=== PATIENT | female | born 1970 | race Caucasian/White ===

== ENCOUNTER 2018-10-29 10:20 | Emergency (ER) | payer MEDICAID, SELFPAY ==
[2018-10-29 10:23] VITALS: BP 144/83; PULSE 82; RESP 17; TEMP 36.7; O2SAT 95; BMI 28.4
--- NOTE | 2018-10-29 10:44 | RAD_ITS ---
STUDY: X-RAY CHEST REASON FOR EXAM: Female, 48 years old. Sore throat. Fever and chills and cough. TECHNIQUE: PA and lateral views of the chest. COMPARISON: None. FINDINGS: The lungs are clear and expanded. There is no demonstrated pleural abnormality. Normal size heart. Normal mediastinum and amy. Normal visualized pulmonary arteries. Normal visualized aortic arch and descending thoracic aorta. Normal visualized thoracic spine. Normal visualized ribs, clavicles, and shoulders. A metallic ring is seen at the gastroesophageal junction region. This may represent post hiatal hernia repair. Clinical correlation is recommended. RAD/Chest PA and Lateral IMPRESSION: No acute abnormality is seen. Electronically Signed: Chico Renteria, at 11:29 EDT , Service support ,
--- NOTE | 2018-10-29 11:51 | ED.VISSUMM ---
- ER Visit Summary Date of Service: 10/29/18 Chief Complaint: Sore throat, fever, cough History of Present Illness: The patient is a 48 F with a 4-day history of congestion, cough, sinus pressure. She reports a fever of 101 on [place]. She said she is only coughing up clear sputum. She does not feel that she is wheezing more than normal. Has baseline COPD. She now presents with sharp pain on her left lower ribs it is worse with coughing or deep breath. Physical Examination: Vital signs unremarkable. Patient is afebrile. Head and neck examination reveals mild posterior pharyngeal drainage. She does have mild tenderness to palpation of the maxillary sinuses with some focal edema noted on the right. Heart is regular rate and rhythm. Lung sounds are clear. She has reproducible tenderness of the left lower ribs without crepitus. Abdomen is soft nontender. Test Results: Two-view chest x-ray reveals no focal infiltrate. Emergency Department Course and Treatment: Test results discussed with patient. In light of the fact that she has underlying COPD should be treated with a course of Zithromax. First dose will be provided here. Treatment Plan: [] Disposition: Discharge Impression: 1. Sinusitis 2. Bronchitis This note was generated with [employer] dictation software. It may contain incorrect words, spelling, and punctuation that were not noted in review of the chart prior to signing ED Disposition - Plan for ED Patient: Disposition: Home or Assisted Living Instructions: ED Upper Resp Infec Abx Tx Prescriptions: Azithromycin [Zithromax] 250 mg PO DAILY #4 tablet Additional Instructions: Follow-up with your PCP in [place] as discussed.
[2018-10-29 11:55] VITALS: PULSE 56; RESP 16; TEMP 36.9
[2018-10-29] MEDS: Azithromycin 250 MG Tablet 500 MG PO (12:02)
== END 2018-10-29 12:06 | disposition home or self-care (01) ==
PROVIDERS: Emergency Provider Emergency Medicine
DX: J32.0 Chronic maxillary sinusitis (principal); J40 Bronchitis, not specified as acute or chronic; J02.9 Acute pharyngitis, unspecified; J44.9 Chronic obstructive pulmonary disease, unspecified; I10 Essential (primary) hypertension
CPT/HCPCS: 71046; 99283

== ENCOUNTER 2018-11-08 14:29 | Emergency (ER) | payer MEDICAID, SELFPAY ==
[2018-11-08 14:30] VITALS: BP 138/60; PULSE 80; RESP 16; TEMP 36.7; O2SAT 97; BMI 28.1
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
[2018-11-08 15:57] VITALS: BP 130/80; PULSE 65; RESP 17; O2SAT 99
== END 2018-11-08 15:56 | disposition home or self-care (01) ==
LOC: ED 15:35
PROVIDERS: Emergency Provider Emergency Medicine
DX: F91.9 Conduct disorder, unspecified (principal); Z76.0 Encounter for issue of repeat prescription; Z59.0 Homelessness; Z79.899 Other long term (current) drug therapy
CPT/HCPCS: 99282

== ENCOUNTER 2019-01-08 10:15 | Emergency (ER) | payer MEDICAID, SELFPAY ==
[2019-01-08 10:16] VITALS: BP 135/86; PULSE 105; RESP 17; TEMP 36.4; O2SAT 97; BMI 29.8
--- NOTE | 2019-01-08 10:34 | ED.VISSUMM ---
- ER Visit Summary Date of Service: 01/08/19 Chief Complaint: Back pain History of Present Illness: The patient is a 48 F who presents with back pain that began yesterday. Patient states her back locked up on her. Patient states pain is over the lower thoracic area. Patient states the pain is sharp. Patient states pain is worse with movement. Patient states she does have some numbness and tingling in her legs. Patient denies any radiation of the pain to her lower extremities. Patient states the pain radiates into her hips but nothing below the hips. Patient denies any pain into her abdomen. Patient denies any bowel or bladder changes. Patient denies any saddle anesthesia. Patient denies any recent trauma or injury. Physical Examination: Vital signs are stable. Patient is afebrile. Patient is in no acute distress. Musculoskeletal exam reveals tenderness and spasm of the lower thoracic and upper lumbar paraspinal muscles. There is no midline tenderness. There is no bony crepitance or step-off. Range of motion was limited in all motions of the thoracic and lumbar spine secondary to pain. Strength is 5/5 bilateral knee upper and lower extremities. There are no sensory deficits noted. Heart was regular rate and rhythm. Lungs are clear and equal bilaterally. Abdomen is soft and nontender. Emergency Department Course and Treatment: Patient was given an injection of morphine and Norflex here. Patient was given a prescription for Flexeril to take at bedtime. Patient was instructed to use ice to the area. Patient was instructed to follow-up with her primary care physician in 5 to 7 days. Patient understood and was agreeable with the plan. All questions were answered. Disposition: Discharge home Impression: Acute thoracic strain This note was generated with Mafengwo dictation software. It may contain incorrect words, spelling, and punctuation that were not noted in review of the chart prior to signing ED Disposition - Plan for ED Patient: Disposition: Home or Assisted Living Diagnosis: Acute thoracic myofascial strain Instructions: Back Sprain/Strain Prescriptions: cycloBENZAPRine HCl [Flexeril] 10 mg PO QHS PRN PRN #10 tab PRN Reason: Muscle Spasm Prescription Printed Referrals: [facility] Doctor,Out of [Primary Care Provider] - 3-5 Days
[2019-01-08] MEDS: Morphine 4 MG/ML Syringe IM (10:47)
[2019-01-08] MEDS: Orphenadrine 60 MG/2 ML Ampul IM (10:48)
[2019-01-08 11:05] VITALS: PULSE 68; RESP 16; O2SAT 99
== END 2019-01-08 11:14 | disposition home or self-care (01) ==
LOC: ED 11:12
PROVIDERS: Emergency Provider Emergency Medicine
DX: S29.012A Strain of muscle and tendon of back wall of thorax, initial encounter (principal); J44.9 Chronic obstructive pulmonary disease, unspecified; M79.7 Fibromyalgia; F32.9 Major depressive disorder, single episode, unspecified; F41.9 Anxiety disorder, unspecified; Z72.0 Tobacco use; Z79.899 Other long term (current) drug therapy; X58.XXXA Exposure to other specified factors, initial encounter; Y93.89 Activity, other specified; Y92.89 Other specified places as the place of occurrence of the external cause; Y99.8 Other external cause status
CPT/HCPCS: 96372; 99282

== ENCOUNTER 2019-02-02 10:34 | Emergency (ER) | payer MEDICAID, SELFPAY ==
[2019-02-02 10:35] VITALS: BP 127/78; PULSE 75; RESP 18; TEMP 36.8; O2SAT 99; BMI 29.6
[2019-02-02 11:06] LABS: Mucous, Urine 0 SEEN /hpf (<or=2+); Red Blood Cells-Urine 0 SEEN /hpf (0-5); White Blood Cells 0 SEEN /hpf (0-5)
[2019-02-02 11:09] LABS: Color, Urine Yellow (Yellow); Glucose, Dipstick Normal (Normal); Ketone-Dipstick 5 mg/dl (Negative); Leukocyte Esterase-Dipstick Negative /ul (Negative); Nitrite-Dipstick Negative (Negative); Occult Blood-Urine 25 /ul (Negative); Protein-Dipstick Negative (Negative); Specific Gravity, Urine 1.015 (1.002-1.030); Urine Bilirubin Dipstick Negative (Negative); Urine Clarity Sl. Cloudy (Clear); Urine Urobilinogen Normal (Normal)
[2019-02-02 11:16] LABS: Bacteria 1+ /hpf (None Seen); Squamous Epithelial Cells - UA 0-5 SEEN /hpf (5-10); Yeast-Urine RARE /hpf (None Seen)
--- NOTE | 2019-02-02 11:29 | NURSING ---
Obtained clean catch from urine and sent to lab. Straight catheter not used.
--- NOTE | 2019-02-02 11:54 | CT_ITS ---
STUDY: CT ABDOMEN AND PELVIS WITH CONTRAST REASON FOR EXAM: Female, 48 years old. Lower abdominal pain radiating to the back painful urination RADIATION DOSAGE (If Supplied By Facility): CTDIvol = ( 14.64 ) mGy, DLP = ( 728.45 ) mGycm TECHNIQUE: CT images were obtained from the dome of the diaphragm to the symphysis pubis without oral contrast. 100CC IV Isovue 300 was administered. Sagittal and coronal images were reconstructed. Individualized dose optimization techniques were used for this CT. COMPARISON: None. FINDINGS: The visualized lung bases are unremarkable. The visualized portions of the heart are within normal limits. Normal liver. Normal gallbladder and extrahepatic biliary system. Normal spleen. Normal pancreas. Normal bilateral adrenal glands. Normal right kidney. Normal left kidney. There is no intestinal obstruction. Appendix is normal. There is proximal gastroesophageal banding device. Normal abdominal aorta. Normal inferior vena cava. Normal retroperitoneum. Normal urinary bladder. Normal abdominal wall. Normal osseous structures. CT/Abdomen/Pelvis W IV Cont ONLY IMPRESSION: Normal enhanced CT of the abdomen and pelvis. Electronically Signed: Zander Maldonado, at 13:51 EDT Tel , Service support ,
[2019-02-02] MEDS: Ondansetron 4 MG/2 ML Vial IV (12:15)
[2019-02-02] MEDS: 0.9% Normal Saline 1,000 ML 1000 ML IV (12:16)
[2019-02-02 12:18] VITALS: BP 142/8; PULSE 56; RESP 14; TEMP 36.8; O2SAT 99
[2019-02-02 12:38] LABS: Anion Gap 3 (5-15); BUN 11 mg/dL (7-18); BUN/Creat Ratio 12.7 RATIO (10-20); Calcium,Total 8.6 mg/dL (8.5-10.1); Chloride 109 mmol/L (98-107); Creatinine, Serum 0.87 mg/dL (0.55-1.02); EST Glomerular Filtration Rate 74 mL/min (>60); Est Glom Filt Rate - Afr Amer 89 mL/min (>60); Estimated Creatinine Clearance 67.55 ml/min; Glucose 91 mg/dL (74-106); Sodium Level 137 mmol/L (136-145)
[2019-02-02 12:45] LABS: Absolute Lymphocyte Count 2.53 X10^3/uL (0.83-4.51); Absolute Neutrophil Count 4.7 X10^3/uL (2.0-7.7); Basophil# 0.02 X10^3/uL; Basophil% 0.2 % (0-1); Eosinophil# 0.18 X10^3/uL; Eosinophils% 2.2 % (0-5); Hematocrit 41.5 % (37-47); Hemoglobin 13.6 g/dL (12.0-15.0); Lymphocyte # 2.53 X10^3/ul (4.0); Lymphocyte % 31.2 % (19-41); Mean Corp Hgb Conc 32.8 g/dL (32-36); Mean Corpuscular Hgb 32.2 pg (27.0-32.0); Mean Corpuscular Volume 98.1 fL (81-99); Mean Platelet Vol. 10.2 fl (6.2-12.0); Monocyte# 0.61 X10^3/uL; Monocyte% 7.5 % (0-10); NRBC Flagged by Analyzer 0 % (0-5); Neutrophil # 4.74 X10^3/uL (2.7-7.7); Neutrophil % 58.7 % (47-70); Platelet Count 299 K/mm3 (150-450); RBC Distribution Width CV 13.3 % (11.6-14.6); RBC Distribution Width SD 48.1 fl (35.1-43.9); Red Blood Count 4.23 M/mm3 (4.2-5.4); White Blood Count 8.1 K/mm3 (4.4-11.0)
[2019-02-02 13:10] VITALS: BP 131/80; O2SAT 99
--- NOTE | 2019-02-02 14:14 | ED.DCSUM_ITS ---
- ER Visit Summary Date of Service: 02/02/19 Chief Complaint: Pain History of Present Illness: The patient is a 48 F with suprapubic pain. She has had this for 4 days. It radiates to her back. Worse with urination. Associated with frequency and incomplete voiding. No fevers. No other symptoms. Prior hysterectomy, appendectomy. Physical Examination: Afebrile and vital signs unremarkable. Alert and oriented. No acute distress. Suprapubic tenderness. No guarding or rebound. Skin appears normal. Test Results: Urinalysis unremarkable. Emergency Department Course and Treatment: Patient had symptoms and findings concerning for a bladder infection. Urinalysis was unremarkable. On reevaluation, patient is having continued symptoms. We will check labs and CT. CT negative. Labs reassuring. Given the patient's symptoms, will treat for UTI. Ulcer pending. She will be started on Macrobid and she was treated with Pyridium for pain. Follow-up with primary care. Treatment Plan: As above Disposition: Discharge Impression: 1. Suprapubic pain This note was generated with Neo[employer]x dictation software. It may contain incorrect words, spelling, and punctuation that were not noted in review of the chart prior to signing ED Disposition - Plan for ED Patient: Referrals: [facility] ,Out of [Primary Care Provider] -
--- NOTE | 2019-02-02 14:17 | ED.DEP ---
ED Disposition - Plan for ED Patient: Instructions: DYSURIA, Uncertain Cause (Adult) Prescriptions: Nitrofurantoin Macrocrystals [Macrobid] 100 mg PO Q12 #10 cap Prescription Printed Phenazopyridine HCl [Pyridium] 100 mg PO TID 2 Days #6 tab Prescription Printed Referrals: [facility] Doctor,Out of [Primary Care Provider] -
[2019-02-02] MEDS: Nitrofurantoin Macrocrystals 100 MG Capsule PO (14:22)
[2019-02-02] MEDS: Phenazopyridine 95 MG Tablet PO (14:22)
[2019-02-02 14:25] VITALS: BP 156/84; PULSE 68; RESP 14
== END 2019-02-02 14:31 | disposition home or self-care (01) ==
LOC: ED 11:22
PROVIDERS: Emergency Provider Emergency Medicine
DX: R10.2 Pelvic and perineal pain (principal); Z72.0 Tobacco use
CPT/HCPCS: 74177; 80048; 81001; 85025; 87086; 87088; 96361; 96374; 99285; J7030; J7040; Q9967; A4216; J2405

== ENCOUNTER 2019-02-16 23:13 | Emergency (ER) | payer MEDICAID, SELFPAY ==
[2019-02-16 23:14] VITALS: BP 152/85; PULSE 79; RESP 16; TEMP 36.9; O2SAT 99
--- NOTE | 2019-02-16 23:25 | ED.VIS.GEN ---
History of Present Illness Chief Complaint: General Illness Detail of Chief Complaint: Headache, nausea, vomiting Informant: Patient Onset: Today Current Severity: Moderate Maximum Severity: Moderate Narrative: Patient presents with headache that is been present all day. She states it started the occiput now radiates up over her head. She is a history of migraines but states this does not feel similar to her migraines. She has had some mild URI symptoms but denies head trauma. No fever or chills. She states she was diagnosed with diabetes 3 days ago. Her doctor wants to get a new hemoglobin A1c and a glucose tolerance test before starting her on any medications. She states her blood sugars have been fluctuating between 80 and 160 today. She has had some nausea and vomiting. She does have some mild light sensitivity. Past Medical History - Allergies and Home Meds Allergies/Adverse Reactions: Allergies acetaminophen [From Percocet] Allergy (Verified 01/08/19 10:16) Hives meperidine [From Demerol] Allergy (Verified 01/08/19 10:16) Other metronidazole [From Flagyl] Allergy (Verified 02/02/19 10:40) Hives oxycodone [From Percocet] Allergy (Verified 01/08/19 10:16) Hives Penicillins Allergy (Verified 01/08/19 10:16) Hives aspirin Adverse Reaction (Verified 01/08/19 10:16) Vomiting Primary Care Physician: Lorene Snider,Out of [NON-STAFF] - Prior records reviewed: Yes Past Medical History: - - Reviewed Lives: - - [employer] Smoking Status: Current every day smoker Review of Systems General: Denies: Chills, Fever Eyes: Denies: Visual changes - bilaterally ENT: Reports: Left ear pain, Sore throat Cardiovascular: Denies: Chest pain Respiratory: Denies: Dyspnea, Cough Gastrointestinal: Reports: Nausea, Vomiting. Denies: Abdominal pain, Diarrhea Genitourinary: Denies: Dysuria Musculoskeletal: Denies: Extremity Pain Skin: Denies: Rash Neurological: Reports: Headache. Denies: Weakness, Parasthesia, Numbness Endocrine: Denies: Polyuria, Polydipsia Hematologic: Denies: Easy bruising Allergy: Denies: Uticaria Physical Exam Vital Signs/Narrative: Vital Signs Temp Pulse Resp BP Pulse Ox 02/16/19 23:14 98.5 F 79 16 152/85 H 99 Inital Vital Signs reviewed: Yes General: Well nourished, Well developed Head: Normocephalic ENT: Moist mucous membranes, TM's clear Neck: Supple Cardiovascular: Regular rate, Regular rhythm Respiratory: No distress, CTA bilaterally Abdomen: Soft, Nontender, Normal bowel sounds Back: Nontender Extremities: Nontender, No edema Skin: Normal color, No rash Neurological: Alert, Oriented x3, Normal Strength, Normal Sensation Psychological: Normal affect Diagnostic/Tx/Re-eval Laboratory Results 02/16/19 02/16/19 02/16/19 23:50 23:50 23:50 WBC 10.0 RBC 3.93 L Hgb 12.7 Hct 38.8 MCV 98.7 MCH 32.3 H MCHC 32.7 RDW Std Deviation 47.8 H RDW Coeff of Joseph 13.2 Plt Count 310 MPV 9.9 Immature Gran % (Auto) 0.400 Neut % (Auto) 49.7 Lymph % (Auto) 37.6 [place] % (Auto) 8.8 Eos % (Auto) 3.2 Baso % (Auto) 0.3 Absolute Neuts (auto) 5.0 Absolute Lymphs (auto) 3.77 Nucleated RBC % 0 Sodium 139 Potassium 4.1 Chloride 111 H Carbon Dioxide 25.0 Anion Gap 3 L BUN 20 H Creatinine 0.90 Estim Creat Clear Calc 65.29 Est GFR (MDRD) Af Amer 86 Est GFR (MDRD) Non-Af 71 BUN/Creatinine Ratio 22.3 H Glucose 96 Calcium 8.8 Urine Color Straw Urine Clarity Clear Urine pH 8.0 Ur Specific [place] 1.015 Urine Protein Negative Urine Glucose (UA) Normal Urine Ketones Negative Urine Occult Blood Negative Urine Nitrite Negative Urine Bilirubin Negative Urine Urobilinogen Normal Ur Leukocyte Esterase Negative Urine RBC 0 SEEN Urine WBC 0 SEEN Ur Squamous Epith Cells 0-5 SEEN Urine Bacteria 0 SEEN Urine Mucus 0 SEEN - Medical Decision Making Patient was given Toradol, Reglan, Benadryl, and a liter of IV fluids. On repeat evaluation she does feel improved. She will be discharged to home and will follow up with her primary care physician for further diabetes testing as planned. ED Disposition - Plan for ED Patient: Disposition: Home or Assisted Living Diagnosis: Cephalgia Instructions: HEADACHE, Unspecified Referrals: [facility] Doctor,Out of [NON-STAFF] - Additional Instructions: Follow-up with your doctor for further diabetes testing as planned.
[2019-02-16 23:56] LABS: Bacteria 0 SEEN /hpf (None Seen); Mucous, Urine 0 SEEN /hpf (<or=2+); Red Blood Cells-Urine 0 SEEN /hpf (0-5); White Blood Cells 0 SEEN /hpf (0-5)
[2019-02-16 23:58] LABS: Color, Urine Straw (Yellow); Glucose, Dipstick Normal (Normal); Ketone-Dipstick Negative (Negative); Leukocyte Esterase-Dipstick Negative /ul (Negative); Nitrite-Dipstick Negative (Negative); Occult Blood-Urine Negative /ul (Negative); Protein-Dipstick Negative (Negative); Specific Gravity, Urine 1.015 (1.002-1.030); Urine Bilirubin Dipstick Negative (Negative); Urine Clarity Clear (Clear); Urine Urobilinogen Normal (Normal)
[2019-02-17] LABS: Absolute Lymphocyte Count 3.77 X10^3/uL (0.83-4.51); Basophil# 0.03 X10^3/uL; Basophil% 0.3 % (0-1); Eosinophil# 0.32 X10^3/uL; Eosinophils% 3.2 % (0-5); Hematocrit 38.8 % (37-47); Hemoglobin 12.7 g/dL (12.0-15.0); Lymphocyte # 3.77 X10^3/ul (4.0); Lymphocyte % 37.6 % (19-41); Mean Corp Hgb Conc 32.7 g/dL (32-36); Mean Corpuscular Hgb 32.3 pg (27.0-32.0); Mean Corpuscular Volume 98.7 fL (81-99); Mean Platelet Vol. 9.9 fl (6.2-12.0); Monocyte# 0.88 X10^3/uL; Monocyte% 8.8 % (0-10); NRBC Flagged by Analyzer 0 % (0-5); Neutrophil # 4.99 X10^3/uL (2.7-7.7); Neutrophil % 49.7 % (47-70); Platelet Count 310 K/mm3 (150-450); RBC Distribution Width CV 13.2 % (11.6-14.6); RBC Distribution Width SD 47.8 fl (35.1-43.9); Red Blood Count 3.93 M/mm3 (4.2-5.4)
[2019-02-17 00:09] LABS: Squamous Epithelial Cells - UA 0-5 SEEN /hpf (5-10)
[2019-02-17 00:11] LABS: Anion Gap 3 (5-15); BUN 20 mg/dL (7-18); BUN/Creat Ratio 22.3 RATIO (10-20); Calcium,Total 8.8 mg/dL (8.5-10.1); Chloride 111 mmol/L (98-107); EST Glomerular Filtration Rate 71 mL/min (>60); Est Glom Filt Rate - Afr Amer 86 mL/min (>60); Estimated Creatinine Clearance 65.29 ml/min; Glucose 96 mg/dL (74-106); Potassium 4.1 mmol/L (3.5-5.1); Sodium Level 139 mmol/L (136-145)
[2019-02-17] MEDS: 0.9% Normal Saline 1,000 ML 1000 ML IV (00:27)
[2019-02-17] MEDS: Metoclopramide 10 MG/2 ML Vial IV (00:29)
[2019-02-17] MEDS: Ketorolac 30 MG/ML Syringe IV (00:30)
[2019-02-17] MEDS: DiphenhydrAMINE 50 MG/ML Syringe 25 MG IV (00:32)
[2019-02-17 01:14] VITALS: BP 108/63; PULSE 68; RESP 15; O2SAT 97
[2019-02-17 02:57] VITALS: BP 135/82; PULSE 76; RESP 16; O2SAT 97
== END 2019-02-17 02:58 | disposition home or self-care (01) ==
PROVIDERS: Emergency Provider Emergency Medicine
DX: R51 Headache (principal); E11.9 Type 2 diabetes mellitus without complications; F17.200 Nicotine dependence, unspecified, uncomplicated
CPT/HCPCS: 80048; 81001; 85025; 96361; 96374; 96375; 99285; J7030; A4216

== ENCOUNTER 2019-03-03 13:35 | Emergency (ER) | payer MEDICAID, SELFPAY ==
[2019-03-03 13:35] VITALS: BP 144/79; PULSE 92; RESP 16; TEMP 36.6; O2SAT 99; BMI 30.5
--- NOTE | 2019-03-03 13:45 | ED.VIS.GEN ---
History of Present Illness Chief Complaint: Fall Informant: Patient Onset: Today Current Severity: Moderate Maximum Severity: Moderate Narrative: Patient presents after falling down 8 steps at home. She states her foot slipped on the carpeted steps and she fell. She did not strike her head or lose consciousness. She is complaining of burning pain in her left shoulder. She has some mild pain in her low back. She is able to ambulate to the ambulance without difficulty. Past Medical History - Allergies and Home Meds Allergies/Adverse Reactions: Allergies meperidine [From Demerol] Allergy (Verified 03/03/19 13:38) Other metronidazole [From Flagyl] Allergy (Verified 03/03/19 13:38) Hives oxycodone [From Percocet] Allergy (Verified 03/03/19 13:38) Hives Penicillins Allergy (Verified 03/03/19 13:38) Hives aspirin Adverse Reaction (Verified 03/03/19 13:38) Vomiting Primary Care Physician: NOT,DEFINED [NON-STAFF] - Prior records reviewed: Yes Past Medical History: - - Reviewed Smoking Status: Current every day smoker Review of Systems General: Denies: Chills, Fever Eyes: Denies: Visual changes - bilaterally ENT: Denies: Bilateral ear pain Cardiovascular: Denies: Chest pain, Palpitations Respiratory: Denies: Dyspnea, Cough Gastrointestinal: Denies: Abdominal pain, Nausea, Vomiting, Diarrhea Genitourinary: Denies: Dysuria Musculoskeletal: Reports: Back pain, Extremity Pain Skin: Denies: Wounds Neurological: Denies: Parasthesia, Numbness Hematologic: Denies: Easy bruising, Easy bleeding Allergy: Denies: Uticaria Physical Exam Vital Signs/Narrative: Vital Signs Temp Pulse Resp BP Pulse Ox 03/03/19 13:35 97.8 F 92 16 144/79 H 99 Inital Vital Signs reviewed: Yes General: Well nourished, Well developed Head: Normocephalic ENT: Moist mucous membranes Neck: Supple Cardiovascular: Regular rate, Regular rhythm Respiratory: No distress, CTA bilaterally Abdomen: Soft, Nontender, Nondistended Back: Nontender - No midline cervical tenderness., - - Minimal tenderness in the upper lumbar paraspinals. Extremities: Tenderness - Tenderness to palpation along the lateral left clavicle and over the humeral head. No tenderness over the left elbow or forearm. Strong distal pulses noted. Decreased range of motion secondary to pain. Remainder of extremities are nontender. Skin: Normal color Neurological: Alert, Oriented x3 Psychological: Normal affect Diagnostic/Tx/Re-eval Impressions Shoulder X-Ray 03/03/19 14:05 IMPRESSION: Normal x-ray examination of the shoulder. Electronically Signed: Erasto PuenteDO at 14:23 EDT Tel [phone], Service support , 03/03/19 14:05 Shoulder min 2 Views [RAD] Stat - Medical Decision Making Patient was given [place] here for pain. X-ray results are discussed with her. She feels like she may have torn something, perhaps her rotator cuff. She will be given a sling and prescription for [place] and Flexeril as she is starting to develop some muscle spasm. She will be referred to Dr. Frank, on-call for orthopedics. ED Disposition - Plan for ED Patient: Disposition: Home or Assisted Living Diagnosis: Sprain of left shoulder, Fall Instructions: FALL, Mechanical, Shoulder Sprain Prescriptions: cycloBENZAPRine HCl [Flexeril] 10 mg PO BID PRN PRN #10 tablet PRN Reason: Muscle Spasm Hydrocodone Bitart/Apap 5-325 [[place] 5MG-325MG] 1 tablet PO Q6H PRN PRN 3 Days #10 tablet PRN Reason: Pain Referrals: Uriel Frank MD [STAFF PHYSICIAN] - 1 Week
[2019-03-03] MEDS: HYDROcodone Bitartrate/Apap 5/325 Tablet PO (14:00)
--- NOTE | 2019-03-03 14:05 | RAD_ITS ---
STUDY: X-RAY - LEFT SHOULDER REASON FOR EXAM: Female, 48 years old. Fall TECHNIQUE: 4 view(s) of the shoulder. COMPARISON: None. FINDINGS: Normal glenohumeral articulation. Normal acromioclavicular joint. Normal acromion. Normal humeral head and visualized proximal humerus. The soft tissue structures are unremarkable. Normal visualized pulmonary apex. RAD/Shoulder min 2 Views IMPRESSION: Normal x-ray examination of the shoulder. Electronically Signed: Erasto Puente DO at 14:23 EDT Tel [phone], Service support ,
[2019-03-03 14:49] VITALS: BP 142/69; PULSE 75
== END 2019-03-03 14:51 | disposition home or self-care (01) ==
PROVIDERS: Emergency Provider Emergency Medicine
DX: S43.402A Unspecified sprain of left shoulder joint, initial encounter (principal); F17.200 Nicotine dependence, unspecified, uncomplicated; W01.0XXA Fall on same level from slipping, tripping and stumbling without subsequent striking against object, initial encounter; Y93.01 Activity, walking, marching and hiking; Y92.009 Unspecified place in unspecified non-institutional (private) residence as the place of occurrence of the external cause; Y99.8 Other external cause status
CPT/HCPCS: 73030; 99284

== ENCOUNTER → 2019-03-20 | Outpatient (CLI) | payer MEDICAID, SELFPAY ==
[2019-03-03 13:35] VITALS: BMI 30.5
--- NOTE | 2019-03-20 09:29 | MRI_ITS ---
STUDY: MRI LEFT SHOULDER REASON FOR EXAM: Pain and limited range of motion, fall down steps. TECHNIQUE: Standardized fat and water weighted pulse sequences were obtained in all 3 orthogonal planes. COMPARISON: Radiographs 03/03/2019. FINDINGS: There is a small intermediate grade partial-thickness tear of the articular surface of the supraspinatus tendon (fat-suppressed T2 coronal image 12) measuring 0.4 cm in length and width and a small linear high-grade partial-thickness tear of the articular surface of the distal supraspinatus tendon (T2 coronal image 13). Normal infraspinatus tendon. Normal subscapularis tendon. Normal teres minor tendon. Normal supraspinatus muscle. Normal infraspinatus muscle. Normal subscapularis muscle. Normal teres minor muscle. Normal glenohumeral articulation. Normal humeral head and visualized proximal humerus. Normal biceps labral complex. Normal intracapsular long biceps tendon. Normal labrum. Normal capsulo- ligamentous complex. There is mild acromioclavicular arthrosis with a small undersurface osteophyte of the distal clavicle effacing the subacromial fat (T2 coronal image 12). There is a Type II morphology (curved), with a neutral orientation. There is no subacromial-subdeltoid bursal fluid. Normal visualized coracohumeral and coracoacromial ligaments. Normal deltoid muscle. Normal trapezius muscle. MRI/Upper Ext Joint Only(Routine) IMPRESSION: Small partial-thickness tears of the supraspinatus tendon. Mild acromioclavicular arthrosis. Electronically Signed: Salvatore Lombardi MD at 12:13 EDT Tel , Service support ,
--- NOTE | 2019-03-20 09:41 | RAD_ITS ---
STUDY: X-RAY - ORBITS REASON FOR EXAM: Female, 48 years old. Possible foreign body. TECHNIQUE: 2 view(s) of the orbits were obtained. COMPARISON: None. FINDINGS: Normal bilateral orbits without a metallic orbital foreign body. Normal visualized facial bones. Normal paranasal sinuses. The soft tissue structures are unremarkable. RAD/Orbits for Foreign Body IMPRESSION: No demonstrated metallic orbital foreign body. The patient is cleared for an MRI examination. Electronically Signed: Chico Renteria, at 9:59 EDT , Service support ,
== END | disposition home or self-care (01) ==
LOC: MRI 09:21
PROVIDERS: Referring Provider Specialist; Visit Provider Specialist
DX: R53.1 Weakness (principal); S46.012A Strain of muscle(s) and tendon(s) of the rotator cuff of left shoulder, initial encounter
CPT/HCPCS: 70030; 73221

== ENCOUNTER 2019-04-01 12:17 | Emergency (ER) | payer MEDICAID, SELFPAY ==
[2019-04-01 12:18] VITALS: BP 142/95; PULSE 94; RESP 16; TEMP 36.8; O2SAT 98; BMI 31.5
--- NOTE | 2019-04-01 12:50 | ED.VISSUMM ---
- ER Visit Summary Date of Service: 04/01/19 Chief Complaint: Left shoulder pain History of Present Illness: The patient is a 48 F with left shoulder pain. She has a known rotator cuff tear. She is scheduled to see orthopedics tomorrow. Her pain got worse this morning. Is worse with moving. Ibuprofen has not been helping. This injury occurred after a fall last month. No paresthesias. Physical Examination: Vital signs are reviewed. Left shoulder x-ray reveals tenderness to the left shoulder diffusely. Limited range of motion secondary to pain. She has a 2+ radial pulse on that side. No elbow pain. There is no swelling of the arm. Test Results: None performed Emergency Department Course and Treatment: She did have an MRI here and it does show a small tear in the supraspinatus tendon. The patient was given 1 [place] here. I did review her OARRS report. She received 10 [place] at the time of injury on March 03. Her orthopedic surgeon ordered 30 more tramadol on March 07. I will give her for [place] for home. She will need to have refill done by her orthopedic surgeon tomorrow. Treatment Plan: [] Disposition: Discharge Impression: Left shoulder pain Rotator cuff tear This note was generated with [employer] dictation software. It may contain incorrect words, spelling, and punctuation that were not noted in review of the chart prior to signing ED Disposition - Plan for ED Patient: Referrals: [facility] [address] Doctor,Out of [Primary Care Provider] -
--- NOTE | 2019-04-01 12:53 | DCINST.ED_ITS ---
ED Disposition - Plan for ED Patient: Disposition: Home or Assisted Living Instructions: Rotator Cuff Tear Prescriptions: Hydrocodone Bitart/Apap 5-325 [[place] 5MG-325MG] 1 tab PO Q4H PRN PRN 2 Days #4 tab PRN Reason: Pain Prescription Printed Referrals: [facility] Doctor,Out of [Primary Care Provider] - Josh Cota DO [STAFF PHYSICIAN] -
[2019-04-01] MEDS: HYDROcodone Bitartrate/Apap 5/325 Tablet PO (13:05)
[2019-04-01 13:08] VITALS: RESP 18
== END 2019-04-01 13:11 | disposition home or self-care (01) ==
LOC: ED 12:57
PROVIDERS: Emergency Provider Emergency Medicine
DX: M75.102 Unspecified rotator cuff tear or rupture of left shoulder, not specified as traumatic (principal); M25.512 Pain in left shoulder; J44.9 Chronic obstructive pulmonary disease, unspecified; I10 Essential (primary) hypertension; Z72.0 Tobacco use; Z79.51 Long term (current) use of inhaled steroids; Z79.899 Other long term (current) drug therapy
CPT/HCPCS: 99283

== ENCOUNTER 2019-04-08 07:10 | Day surgery (SDC) | payer MEDICAID, SELFPAY ==
[2019-04-08] VITALS (9 sets, daily range): BP systolic 104–167; BP diastolic 58–91; PULSE 75–87; RESP 15–18; TEMP 36.3–37.2; O2SAT 94–100; BMI 31.1
--- NOTE | 2019-04-08 07:18 | EKG12_ITS ---
Test Reason : PREOP Blood Pressure : / mmHG Vent. Rate : 070 BPM Atrial Rate : 070 BPM P-R Int : 146 ms QRS Dur : 096 ms QT Int : 398 ms P-R-T Axes : 042 054 038 degrees QTc Int : 429 ms Normal sinus rhythm Normal ECG Confirmed by OLIVIA FRANCO, PAULETTE ([id number]), proposal editor RAJAN HILARIO ([id number]) on 04/10/2019 2:36:13 PM Referred By: Josh Cota Confirmed By:PAULETTE BAKER MD
[2019-04-08] MEDS: Lactated Ringers 1,000 ML 100 ML IV (07:46)
[2019-04-08] MEDS: Ipratropium/Albuterol Sulfate 3 ML AMPUL.NEB INHALATION (07:55)
[2019-04-08] MEDS: Epinephrine (1 mg/ml) 1 MG/ML VIAL (09:23)
[2019-04-08] MEDS: Bupiv/Epi 0.25% 30 ML Vial (09:53)
[2019-04-08] MEDS: HYDROcodone Bitartrate/Apap 5/325 Tablet PO (11:31)
--- NOTE | 2019-04-08 11:43 | PCM.OPRPT ---
Report of Operation Date of Procedure: 04/08/19 Pre-Operative Diagnosis: SAIS, AC arthrosis, possible rotator cuff tear left shoulder Post-Operative Diagnosis: SAIS, AC arthrosis, no rotator cuff tear left shoulder Surgery/Procedure Performed:: Arthroscopic subacromial decompression and Yusef procedure left shoulder lasting machine operator: Jarrod Jones Type of Anesthesia:: General Anesthesiologist: Benito Gray Estimated Blood Loss (mL): minimal - Admit VTE Documentation VTE Present on Admission: No VTE Mechan Device Prophylaxis: SCD's, Thigh High JOSY Hose VTE Pharm Prophylaxis ordered?: No Reason prophylaxis not ordered:: Treatment Not Indicated
== END 2019-04-08 12:45 | disposition home or self-care (01) ==
LOC: SDC 07:10 → AC 07:11
PROVIDERS: Referring Provider Orthopaedic Surgery; Visit Provider Orthopaedic Surgery
PROC: (CPT 29827; principal; 2019-04-08 08:25)
DX: M19.012 Primary osteoarthritis, left shoulder (principal); R53.1 Weakness; I10 Essential (primary) hypertension; E11.9 Type 2 diabetes mellitus without complications; F17.210 Nicotine dependence, cigarettes, uncomplicated; E66.3 Overweight; F32.9 Major depressive disorder, single episode, unspecified; M79.7 Fibromyalgia; E78.00 Pure hypercholesterolemia, unspecified; G47.30 Sleep apnea, unspecified; J44.9 Chronic obstructive pulmonary disease, unspecified; F41.9 Anxiety disorder, unspecified; Z79.51 Long term (current) use of inhaled steroids; Z79.891 Long term (current) use of opiate analgesic; Z79.899 Other long term (current) drug therapy
CPT/HCPCS: 29824; 29826; 93005; 94640; J7120; J2405

== ENCOUNTER 2019-04-29 11:09 | Emergency (ER) | payer MEDICAID, SELFPAY ==
[2019-04-08 07:31] VITALS: BMI 31.1
[2019-04-29 11:10] VITALS: BP 156/90; PULSE 114; RESP 16; TEMP 36.7; O2SAT 99
--- NOTE | 2019-04-29 11:29 | ED.DCSUM_ITS ---
- ER Visit Summary Date of Service: 04/29/19 Chief Complaint: Cough, sore throat left earache History of Present Illness: The patient is a 48 F history of hypertension and prediabetic. Patient states he has had cold-like symptoms for approximately a week. Earache last 2 days left greater than right. Clear sputum production with her cough. Subjective fever. No vomiting. Mild diarrhea. Physical Examination: Middle-aged female no acute distress vital signs stable afebrile. Pulse ox 90% room air no signs of hypoxia. HEENT exam right TM markable. Left TM erythematous and dull consistent with infection. Canal normal. Posterior pharynx unremarkable. Neck nontender no lymphadenopathy. Lungs clear to auscultation. Dry cough no rales, rhonchi or wheezing. Heart regular rhythm no murmur rate about 100. Abdomen soft nontender. Patient is moving all 4 extremities. No edema. Neurologically she is awake and alert. Test Results: None Emergency Department Course and Treatment: Exam consistent with a left otitis media. She has a penicillin allergy. States that Zithromax does not work for her. She will be started on Bactrim 1 given in ER along with 1 [place] for pain. Treatment Plan: Bactrim twice daily for 1 week. Tylenol Motrin for pain. Started on anesthetic eardrops. Disposition: Discharge Impression: Left otitis media This note was generated with Pain Doctor dictation software. It may contain incorrect words, spelling, and punctuation that were not noted in review of the chart prior to signing ED Disposition - Plan for ED Patient: Referrals: MILADYS PAEZ [Other]
[2019-04-29] MEDS: HYDROcodone Bitartrate/Apap 5/325 Tablet PO (11:48)
[2019-04-29] MEDS: Smz/Tmp Ds Tablet 1 TABLET PO (11:48)
== END 2019-04-29 11:51 | disposition home or self-care (01) ==
LOC: ED 11:37
PROVIDERS: Emergency Provider Emergency Medicine
DX: H66.92 Otitis media, unspecified, left ear (principal); J06.9 Acute upper respiratory infection, unspecified; J44.9 Chronic obstructive pulmonary disease, unspecified; Z72.0 Tobacco use
CPT/HCPCS: 99283

== ENCOUNTER 2019-05-29 13:10 | Emergency (ER) | payer MEDICAID, SELFPAY ==
[2019-05-29 13:12] VITALS: BP 166/75; PULSE 113; RESP 18; TEMP 36.4; O2SAT 100; BMI 31.8
--- NOTE | 2019-05-29 13:37 | EKG12_ITS ---
Test Reason : ABDOMINAL PAIN Blood Pressure : / mmHG Vent. Rate : 079 BPM Atrial Rate : 079 BPM P-R Int : 138 ms QRS Dur : 084 ms QT Int : 378 ms P-R-T Axes : 051 077 056 degrees QTc Int : 433 ms Normal sinus rhythm Normal ECG Confirmed by PRATIMA FRANCO, FRANCO ([id number]), video news editor AURELIA GARCIA ([id number]) on 05/30/2019 10:37:02 AM Referred By: LEONID Confirmed By:MEHDI ANDUJAR MD
[2019-05-29 14:06] LABS: Absolute Lymphocyte Count 2.61 X10^3/uL (0.83-4.51); Absolute Neutrophil Count 7.7 X10^3/uL (2.0-7.7); Basophil# 0.03 X10^3/uL; Basophil% 0.3 % (0-1); Eosinophil# 0.51 X10^3/uL; Eosinophils% 4.4 % (0-5); Hematocrit 42.9 % (37-47); Hemoglobin 14.1 g/dL (12.0-15.0); Lymphocyte # 2.61 X10^3/ul (4.0); Lymphocyte % 22.6 % (19-41); Mean Corp Hgb Conc 32.9 g/dL (32-36); Mean Corpuscular Hgb 31.4 pg (27.0-32.0); Mean Corpuscular Volume 95.5 fL (81-99); Mean Platelet Vol. 8.8 fl (6.2-12.0); Monocyte# 0.66 X10^3/uL; Monocyte% 5.7 % (0-10); NRBC Flagged by Analyzer 0 % (0-5); Neutrophil # 7.68 X10^3/uL (2.7-7.7); Neutrophil % 66.7 % (47-70); Platelet Count 373 K/mm3 (150-450); RBC Distribution Width CV 12.9 % (11.6-14.6); Red Blood Count 4.49 M/mm3 (4.2-5.4); White Blood Count 11.5 K/mm3 (4.4-11.0)
[2019-05-29] MEDS: Ondansetron 4 MG/2 ML Vial IV (14:19)
[2019-05-29] MEDS: Morphine 4 MG/ML Syringe IV (14:19)
[2019-05-29] MEDS: 0.9% Normal Saline 1,000 ML 125 ML IV (14:19)
[2019-05-29 14:27] LABS: AST(SGOT) 11 U/L (15-37); Alanine Aminotransfer ALT/SGPT 20 U/L (13-56); Albumin, Serum 3.7 g/dL (3.2-5.0); Alkaline Phosphatase 101 U/L (45-117); Anion Gap 7 (5-15); BUN 10 mg/dL (7-18); BUN/Creat Ratio 10.9 RATIO (10-20); Calcium,Total 8.9 mg/dL (8.5-10.1); Chloride 103 mmol/L (98-107); Creatinine, Serum 0.91 mg/dL (0.55-1.02); EST Glomerular Filtration Rate 69 mL/min (>60); Est Glom Filt Rate - Afr Amer 84 mL/min (>60); Estimated Creatinine Clearance 64.58 ml/min; Globulin 3.8 g/dL (2.2-4.2); Glucose 97 mg/dL (74-106); Lipase 47 U/L (73-393); Potassium 4.1 mmol/L (3.5-5.1); Protein, Total 7.5 g/dL (6.4-8.2); Sodium Level 139 mmol/L (136-145)
[2019-05-29 14:38] LABS: Lactic Acid 1.4 mmol/L (0.4-1.9)
--- NOTE | 2019-05-29 14:40 | CT_ITS ---
STUDY: CT ABDOMEN AND PELVIS WITHOUT CONTRAST REASON FOR EXAM: Female, 48 years old. ABD PAIN SINCE LAST NIGHT, NAUSEA, ESOPHAGEAL BANDING RADIATION DOSAGE (If Supplied By Facility): CTDIvol = ( 12.35 ) mGy, DLP = ( 598.60 ) mGycm TECHNIQUE: Transaxial images were obtained from the dome of the diaphragm to the symphysis pubis without oral contrast, and without intravenous contrast. Sagittal and coronal images were reconstructed. Individualized dose optimization techniques were used for this CT. COMPARISON: Comparison is made with prior examination dated February 02, 2019. FINDINGS: The visualized lung bases are unremarkable. The visualized portions of the heart are within normal limits. Normal liver. Increased soft tissue density within the gallbladder lumen suggestive of sludge and/or possible small gallstones. Normal spleen. Normal pancreas. Normal bilateral adrenal glands. Normal right kidney. Normal left kidney. Metallic density is seen at the gastroesophageal junction suggestive of gastroesophageal banding device. This causes beam hardening artifact. This is unchanged. Normal small intestine. Normal colon. The appendix is visualized and appears normal. There is scattered atherosclerotic calcification of the abdominal aorta, without a demonstrated aneurysm. Normal inferior vena cava. Normal retroperitoneum. Normal urinary bladder. There is absence of the uterus consistent with a prior hysterectomy. There is a small umbilical hernia containing fat. Normal osseous structures. CT/Abdomen/Pelvis without Cont IMPRESSION: No acute abnormality is seen. Evidence of prior gastroesophageal banding. Electronically Signed: Chico Renteria, at 15:09 EST , Service support ,
[2019-05-29] MEDS: Mag Hydrox/Al Hydrox/Simeth 30 ML UDC PO (15:08)
--- NOTE | 2019-05-29 16:01 | ED.VISSUMM ---
- ER Visit Summary Date of Service: 05/29/19 Chief Complaint: [Abdominal pain] History of Present Illness: The patient is a 48 F [presents to the emergency department with complaint of abdominal pain that started around 1 AM this morning. Patient describes intermittent discomfort in the epigastric region that feels like a pressure buildup and then resolves but returns every couple of minutes. Patient's had nausea but no vomiting. She denies any fever. She denies any diarrhea. Patient also states that she feels and hears bubbles in her abdomen. Patient has history of hypertension and COPD. Patient's had prior appendectomy and hysterectomy and also has had a hiatal hernia repair in [facility]. Urinary symptoms. She does state that the pain radiates through to her back.] Physical Examination: [HEENT-PERRLA, EOMI. Cranial nerves II through XII grossly intact. TMs clear. Mucous membranes moist. No adenopathy. Cardiovascular-regular rate and rhythm without murmur or ectopy Lungs-clear to auscultation, chest wall stable without crepitus or subcu emphysema Abdomen-normoactive bowel sounds. Patient has some tenderness over the epigastric region with some guarding. There is no rebound, rigidity, or peritoneal signs. Extremities-intact ?4, normal range of motion, normal pulses, atraumatic] Test Results: [CBC with differential obtained showed a slightly elevated white count of 11.5, hemoglobin 14, hematocrit 43, platelet 373. Chemistries unremarkable. LFTs were normal. Lipase was normal at 47. Troponin is less than 0.015. EKG obtained arrival shows sinus rhythm with a ventricular rate of 79 bpm with no acute ST segment changes. CT flank showed prior esophageal banding however nothing else acute on CT and no change from prior.] Emergency Department Course and Treatment: [Was medicated with morphine and Zofran on arrival. Patient was given a GI cocktail. The pain did improve with treatment of morphine and Zofran however she does not feel like the GI cocktail helped much.] Treatment Plan: [Patient will be discharged home and advised to follow-up with her surgeon that did this esophageal banding. Within the next 3 to 5 days. Patient given a prescription for a few [place] for pain. Patient also will be started on Prevacid.] Disposition: [Discharged home in stable condition] Impression: [Abdominal pain-etiology uncertain] This note was generated with Dragon dictation software. It may contain incorrect words, spelling, and punctuation that were not noted in review of the chart prior to signing ED Disposition - Plan for ED Patient: Referrals: Susy Funez MD [Primary Care Provider] -
--- NOTE | 2019-05-29 16:04 | DCINST.ED_ITS ---
ED Disposition - Plan for ED Patient: Instructions: ABDOMINAL PAIN, Unknown Cause, (Female) Prescriptions: Hydrocodone Bitart/Apap 5-325 [[place] 5MG-325MG] 1 tab PO Q4H PRN PRN 2 Days #10 tab PRN Reason: Pain Prescription Printed Lansoprazole [Prevacid] 30 mg PO DAILY #30 cap Prescription Printed Referrals: Susy Funez MD [Primary Care Provider] - 3-5 Days
[2019-05-29 16:22] VITALS: BP 154/81; PULSE 98; TEMP -8.8; TEMP 16; O2SAT 100
== END 2019-05-29 16:25 | disposition home or self-care (01) ==
LOC: ED 13:42
PROVIDERS: Emergency Provider Emergency Medicine; PCP Internal Medicine
DX: R10.13 Epigastric pain (principal); R11.0 Nausea; I10 Essential (primary) hypertension; J44.9 Chronic obstructive pulmonary disease, unspecified; F12.90 Cannabis use, unspecified, uncomplicated; Z90.710 Acquired absence of both cervix and uterus; Z90.49 Acquired absence of other specified parts of digestive tract; Z72.0 Tobacco use
CPT/HCPCS: 74176; 80053; 83605; 83690; 84484; 85025; 93005; 96361; 96374; 96375; 99283; J7030; A4216; J2405

== ENCOUNTER → 2019-07-16 10:11 | Outpatient (CLI) | payer MEDICAID, SELFPAY ==
--- NOTE | 2019-07-16 10:45 | MRI_ITS ---
STUDY: MRI LEFT SHOULDER REASON FOR EXAM: Female, 48 years old. osteoarthritis left shoulder. Continued decreased ROM following surgery March 2019 and pain in joint. TECHNIQUE: Standardized fat and water weighted pulse sequences were obtained in all 3 orthogonal planes. COMPARISON: 03/20/2019 FINDINGS: Moderate supraspinatus and infraspinatus tendinosis and peritendinitis is but no macro tear or muscular atrophy. There is subscapularis tendinosis with tendon thickening, but without a demonstrated tendon tear. Normal teres minor tendon. Normal supraspinatus muscle. Normal infraspinatus muscle. Normal subscapularis muscle. Normal teres minor muscle. Normal glenohumeral articulation. Normal humeral head and visualized proximal humerus. Normal biceps labral complex. Normal intracapsular long biceps tendon. Normal labrum. Normal capsulo- ligamentous complex. Normal rotator interval. There is mild osteoarthritis of the acromioclavicular articulation. There is a Type I morphology (flat undersurface), with a neutral orientation. There is minimal fluid distention of the subacromial bursa, consistent with mild subacromial-subdeltoid bursitis. Normal visualized coracohumeral and coracoacromial ligaments. Normal quadrilateral space. Normal axillary space. Normal deltoid muscle. Normal trapezius muscle. MRI/Upper Ext Joint Only(Routine) IMPRESSION: Moderate supraspinatus and infraspinatus tendinosis and peritendinitis is but no macro tear or muscular atrophy. Electronically Signed: Ang Webb MD at 16:38 EST Tel , Service support ,
== END ==
PROVIDERS: PCP Internal Medicine; Referring Provider Orthopaedic Surgery; Visit Provider Orthopaedic Surgery
DX: M19.012 Primary osteoarthritis, left shoulder (principal)
CPT/HCPCS: 73221

== ENCOUNTER 2019-07-31 13:22 | Outpatient (RCR) | payer MEDICAID, SELFPAY | END 2019-07-31 14:02 | disposition home or self-care (01) | LOC: PT 13:22 | PROVIDERS: PCP Internal Medicine; Referring Provider Specialist; Visit Provider Specialist | DX: S46.012D Strain of muscle(s) and tendon(s) of the rotator cuff of left shoulder, subsequent encounter (principal) ==

== ENCOUNTER 2019-08-07 13:30 | Outpatient (RCR) | payer MEDICAID, SELFPAY ==
[2019-04-08 07:31] VITALS: BMI 31.1
--- NOTE | 2019-04-15 11:34 | HP.PTEVAL_ITS ---
Patient's Visit Information RAYMON HAAS is a 48 year old F referred to Physical Therapy by Josh Cota DO with a diagnosis of Left RTC Repair 04/08/19. Date of Evaluation: 04/15/19 Physical Therapist: Dionna Mooney DPT - Visit Plan Frequency: 2x /Week Duration: 4 Weeks Plan: Left RTC Repair 04/08/19- Follow standard protocol. HEP 04/15: Finger Dexterity, Multiple Punch Press Operator, Sup/Pro, Elbow flexion/extn, scap retractions, pendulums- educated on importance of wearing sling - Subjective Findings: Patient reports that she is a week out of surgery- Left RTC surgery 04/08/[address] Cota- she does not wear her sling when she goes out due to wearing a coat but does wear it at home. Fell down the stairs in February initial injury- MRI then surgery. Has surgery at [facility]. Went home after surgery- does not have a lot of help right now but friend is planning to move in. Right hand dominate. Worst: 10/10 Agg: sleeping Best: 5/10 Eases: ice. Describes the pain as sharp/shooting but mostly dull and achy. Pain is located in the shoulder and radiates into the collar bone area. Does have some NT in the hand and its hard to resourcing consultant things. Always has migraines but nothing new, no blurred vision or dizziness. Sleep: night terrors- wearing sling to sleep. Work: patient is pending disability. PMHx/Meds: none since surgery. - Objective Posture: FH, RS- signficant guarding of the left UE- no sling- reports she could not wear a coat and the sling. Gait: normal LE- guading of the left UE with poor trunk rotation and no arm swing. Palpation: tender along upper trap, medial border of the scapula, clavicle, anterior deltoid and bicipital groove. ROM: AROM of the cervical spine, fingers, wrist and elbow: WNL, Passive shoulder: flexion: 70 degrees, abduction: 80 degrees, IR in a 45 degrees plane: to belly, ER in a 45 degree plane: 20 degrees. Strength: Multiple Punch Press Operator testing: diminished, Wrist: 4+/5, Elbow: 4-/5, Shoulder: not tested. - Goals Goal 1:: Patient will be I with HEP and progression Goal Time Frame: 4-6 Weeks Goal 2:: Patient will demo full AROM in the left shoulder (as per protocol) Goal Time Frame: 4-6 Weeks Goal 3:: Patient will maintain proper posture t/o tx session to demo increased scap s/s. Goal Time Frame: 4-6 Weeks Goal 4:: Patient will report sleeping through the night for 3 consecutive days Goal Time Frame: 4-6 Weeks - Rehabilitation Potential Physical Therapy Diagnosis: Patient presents s/p left RTC repair 04/09- she has hypomobility- decreased ROM, strength and muscular endurance leading to poor posture and increased pain/inability to perform ADL's. Rehabilitation Potential: Fair - Anticipated Interventions Patient/Client Instruction: Educate patient on: Benefits of Fitness Program Therapeutic Exercise to Include: Strength training, Endurance training, Body mechanics, Postural training, Passive ROM, Active ROM, Scapular Strength/Stabilization Comment: as per protocol For the Purpose of:: To improve muscle performance and motor function Manual Therapy Techniques to Include: Passive ROM, Soft tissue mobilization For the Purpose of:: To increase ROM TENS: Yes Cryotherapy (ice pack, ice massage): Yes Thermo therapy (hot pack): Yes Ultrasound (thermal/non thermal): No For the Purpose of:: To decrease pain Thank you for the opportunity to evaluate your patient. For Medicare and Medicare HMO plans, please review the plan of care and approve it. It will need to be FAXED BACK to us at [phone] for Medicare purposes. For Medicare only, by signing this I certify the plan of care. Please let me know if there are questions or concerns regarding this plan of care. Physician Signature: Date:
--- NOTE | 2019-05-13 11:50 | HP.PTREVAL_ITS ---
Josh Cota, DO, It has been my pleasure to treat RAYMON HAAS over the last 4 visits for Left RTC Repair 04/08/19. Please see the progress note below for an update on the physical therapy plan of care! Subjective: Patient reports a lot of tenderness since last PT session due to passive range of motion. Is between an 8-9/10 since then- most of it comes and goes- now she has a constant ache- its in the deltoid. No pain running down the arm. Goes back to May 30- was told to wear the sling until that apt. Does have slight N/T in the fingers. Sleep: still pretty rough- sleeping in the bed- with the sling on. Objective/Function: Posture: guarding of the left UE- still wearing sling. Palpation: tender throughout to left shoulder and scapula. ROM: PROM: flexion: 90 degrees, Abd: 95 degrees, IR: to belly, ER: neutral- reports pain at end range-empty end feel. Plan Plan: Continue 2-3x a week for 4 weeks- continue to progress through protocol. Left RTC Repair 04/08/19- Follow standard protocol. HEP 04/15: Finger Dexterity, Tubular Stock Glass Bulb Machine Former, Sup/Pro, Elbow flexion/extn, scap retractions, pendulums- educated on importance of wearing sling Goals Goal 1:: Patient will be I with HEP and progression Goal Time Frame: 4-6 Weeks Goal Progress: Progressing Goal 2:: Patient will demo full AROM in the left shoulder (as per protocol) Goal Time Frame: 4-6 Weeks Goal Progress: Progressing Goal 3:: Patient will maintain proper posture t/o tx session to demo increased scap s/s. Goal Time Frame: 4-6 Weeks Goal Progress: Progressing Goal 4:: Patient will report sleeping through the night for 3 consecutive days Goal Time Frame: 4-6 Weeks Goal Progress: Progressing Anticipated Interventions Patient/Client Instruction: Educate patient on: Benefits of Fitness Program Therapeutic Exercise to Include: Strength training, Endurance training, Body mechanics, Postural training, Passive ROM, Active ROM, Scapular Strength/Stabilization Comment: as per protocol For the Purpose of:: To improve muscle performance and motor function Manual Therapy Techniques to Include: Passive ROM, Soft tissue mobilization For the Purpose of:: To increase ROM TENS: Yes Cryotherapy (ice pack, ice massage): Yes Thermo therapy (hot pack): Yes Ultrasound (thermal/non thermal): No For the Purpose of:: To decrease pain Please do not hesitate to contact me at [phone] by phone or if you have questions or concerns regarding this new plan of care! Sincerely, SANDIP SanchezT
--- NOTE | 2019-06-17 15:48 | HP.PTREVAL ---
Josh Cota, DO, It has been my pleasure to treat RAYMON HAAS over the last 7 visits for Left RTC Repair 04/08/19. Please see the progress note below for an update on the physical therapy plan of care! Subjective: Goes back to MD tomorrow- she is not any better- still has a lot of pain in the shoulder. The plan is to have the MRI re-done due to the fall she took. Worst: 02/28 Generally hits 03/09 at night time. She is still wearing the sling all the time. Best: 10/29. Pain radiating to the hand. Feels like the shoulder get stuck. Objective/Function: Posture: significant guarding of the left UE. Palpation: tender throughout to left shoulder and scapula. ROM: PROM unable due to significant guarding- AROM: flexion: 30 degrees, Abd: 40 degrees, IR: will not attempt, ER: neutral all with significant pain. Plan Plan: Hold- return to MD for further evaluation Goals Goal 1:: Patient will be I with HEP and progression Goal Time Frame: 4-6 Weeks Goal Progress: Progressing Goal 2:: Patient will demo full AROM in the left shoulder (as per protocol) Goal Time Frame: 4-6 Weeks Goal Progress: Progressing Goal 3:: Patient will maintain proper posture t/o tx session to demo increased scap s/s. Goal Time Frame: 4-6 Weeks Goal Progress: Progressing Goal 4:: Patient will report sleeping through the night for 3 consecutive days Goal Time Frame: 4-6 Weeks Goal Progress: Progressing Anticipated Interventions Patient/Client Instruction: Educate patient on: Benefits of Fitness Program Therapeutic Exercise to Include: Strength training, Endurance training, Body mechanics, Postural training, Passive ROM, Active ROM, Scapular Strength/Stabilization Comment: as per protocol For the Purpose of:: To improve muscle performance and motor function Manual Therapy Techniques to Include: Passive ROM, Soft tissue mobilization For the Purpose of:: To increase ROM TENS: Yes Cryotherapy (ice pack, ice massage): Yes Thermo therapy (hot pack): Yes Ultrasound (thermal/non thermal): No For the Purpose of:: To decrease pain Please do not hesitate to contact me at [phone] by phone or if you have questions or concerns regarding this new plan of care! Sincerely, Dionna Mooney DPT
--- NOTE | 2019-07-31 14:00 | HP.PTREVAL ---
Josh Cota, DO, It has been my pleasure to treat RAYMON HAAS over the last 8 visits for Left RTC Repair 04/08/19. Please see the progress note below for an update on the physical therapy plan of care! Subjective: Went back to Dr. Cota- repeat MRI- showed no tear- cortisone injection last Monday and wants her back in therapy. Today she has a kink in her neck. The shoulder is better- the only time it hurts is when she is moving it over her heaad. Does still feel the catch in the shoulder. Worst: 09/28 Agg: moving it overhead, leaving it dangle at her side. Eases: keeping it by her side. Best: -07/01. Describes the pain as throbbing and dull and achy. Pain is located in the left shoulder- radiates to her wrist- does have slight N/T when she sleeps at night. Sleep: not disturbed. If cortisone injection doesn't work then she will have to have a manipulation or a possible scrapping of the scar tissue. Objective/Function: Posture: guarding of the left UE. ROM: AROM: Flexion: 90 degrees Abd: 65 degrees, IR: pocket, ER: 40. PROM: Flexion: 105, Abd:105, IR: 35 degrees, ER: 30 degrees- all empty end feel- stopped due to patient reports of significant pain. Strength: 3+/5 in available range with pain in the left shoulder, Scap: poor, Elbow: 4-/5 Plan Plan: Continue 3x a week for 3 weeks with progression towards goals Goals Goal 1:: Patient will be I with HEP and progression Goal Time Frame: 4-6 Weeks Goal Progress: Progressing Goal 2:: Patient will demo full AROM in the left shoulder (as per protocol) Goal Time Frame: 4-6 Weeks Goal Progress: Progressing Goal 3:: Patient will maintain proper posture t/o tx session to demo increased scap s/s. Goal Time Frame: 4-6 Weeks Goal Progress: Progressing Goal 4:: Patient will report sleeping through the night for 3 consecutive days Goal Time Frame: 4-6 Weeks Goal Progress: Progressing Anticipated Interventions Patient/Client Instruction: Educate patient on: Benefits of Fitness Program Therapeutic Exercise to Include: Strength training, Endurance training, Body mechanics, Postural training, Passive ROM, Active ROM, Scapular Strength/Stabilization Comment: as per protocol For the Purpose of:: To improve muscle performance and motor function Manual Therapy Techniques to Include: Passive ROM, Soft tissue mobilization For the Purpose of:: To increase ROM TENS: Yes Cryotherapy (ice pack, ice massage): Yes Thermo therapy (hot pack): Yes Ultrasound (thermal/non thermal): No For the Purpose of:: To decrease pain Please do not hesitate to contact me at [phone] by phone or if you have questions or concerns regarding this new plan of care! Sincerely, SANDIP SanchezT
--- NOTE | 2019-10-22 08:42 | HP.PT.NRP ---
RAYMON HAAS was seen in my office for initial evaluation on 04/15/19. The following Plan of Care was established for this patient: Initial Frequency: 2x /Week Initial Duration: 4 Weeks Patient/Client Instruction: Educate patient on: Benefits of Fitness Program Therapeutic Exercise to Include: Strength training, Endurance training, Body mechanics, Postural training, Passive ROM, Active ROM, Scapular Strength/Stabilization For the Purpose of:: To improve muscle performance and motor function Manual Therapy Techniques to Include: Passive ROM, Soft tissue mobilization For the Purpose of:: To increase ROM TENS: Yes Cryotherapy (ice pack, ice massage): Yes Thermo therapy (hot pack): Yes Ultrasound (thermal/non thermal): No For the Purpose of:: To decrease pain This patient was last seen in our office . Pertinent comments regarding their Physical therapy will appear below: Patient has not attended physical therapy in over 4 weeks- appropriate for d/c. Return to MD for further evaluation as needed. At this point I will be discontinuing this patient from physical therapy. I would be happy to see this patient again in the future if found appropriate by the physician. Thank you! SANDIP SanchezT
== END 2019-08-07 19:00 | disposition home or self-care (01) ==
LOC: PT 13:30
PROVIDERS: Referring Provider Orthopaedic Surgery; Visit Provider Orthopaedic Surgery
DX: S46.012D Strain of muscle(s) and tendon(s) of the rotator cuff of left shoulder, subsequent encounter (principal)
CPT/HCPCS: 97014; 97032; 97110; 97140; 97161; 97164; G0283

== ENCOUNTER 2020-01-11 21:54 | Emergency (ER) | payer MEDICAID, SELFPAY ==
[2020-01-11 21:56] VITALS: BP 156/102; PULSE 85; RESP 15; TEMP 36.4; O2SAT 94; BMI 32.5
--- NOTE | 2020-01-11 22:14 | EKG12_ITS ---
Test Reason : VOMITING Blood Pressure : / mmHG Vent. Rate : 074 BPM Atrial Rate : 074 BPM P-R Int : 142 ms QRS Dur : 090 ms QT Int : 402 ms P-R-T Axes : 008 039 016 degrees QTc Int : 446 ms Normal sinus rhythm Normal ECG Confirmed by LARRY FRANCO, YVROSE ([id number]), avid editor MARYBETH GALICIA ([id number]) on 01/14/2020 9:34:24 AM Referred By: MEME Confirmed By:YVROSE JUAREZ MD
--- NOTE | 2020-01-11 22:14 | US_ITS ---
STUDY: ABDOMINAL ULTRASOUND - RIGHT UPPER QUADRANT REASON FOR VISIT: Female, 49 years old patient with nausea and vomiting for four days. TECHNIQUE: Ultrasound evaluation of the right upper quadrant was performed with real-time and static garcia-scale imaging. TECHNICAL QUALITY: Adequate. Examination limited by bowel gas. COMPARISON: CT abdomen and pelvis dated 10/28/2019. FINDINGS: Liver: The liver measures 15.5 cm. There is normal echogenicity of the liver. The bile ducts are within normal limits. There is hepatic color flow. The direction of portal flow is hepatopetal. There is no demonstrated mass lesion. Gallbladder: Normal distended gallbladder. The gallbladder wall measures 5.0 mm. There is a negative sonographic Walters''s sign. There is no pericholecystic fluid. There are no gallstones. Common Bile Duct (C.B.D.): The common bile duct measures 4.4 mm. Pancreas: There is nonvisualization of the pancreas. Right Kidney: Normal size of the right kidney. The right kidney measures 11.4 x 5.2 x 5.2 cm. Normal renal cortex. The right cortex measures 1.7 cm. There is no demonstrated renal mass or cyst. There is no right hydronephrosis. US/Gallbladder IMPRESSION: 1. Nonvisualization of pancreas secondary to bowel gas. 2. Nonspecific thickening of the gallbladder wall. This could be secondary to hepatitis, cholecystitis or pancreatitis. Electronically Signed: Lelo Haynes MD at 0:21 EDT , Service support ,
[2020-01-11 22:24] LABS: Hematocrit 44.7 % (37-47); Hemoglobin 14.8 g/dL (12.0-15.0); Lymphocyte % 27.6 % (19-41); Mean Corp Hgb Conc 33.1 g/dL (32-36); Mean Corpuscular Hgb 31.4 pg (27.0-32.0); Mean Corpuscular Volume 94.7 fL (81-99); Mean Platelet Vol. 8.9 fl (6.2-12.0); Neutrophil % 60.9 % (47-70); Platelet Count 348 K/mm3 (150-450); RBC Distribution Width CV 13.8 % (11.6-14.6); RBC Distribution Width SD 47.8 fl (35.1-43.9); Red Blood Count 4.72 M/mm3 (4.2-5.4); White Blood Count 13.7 K/mm3 (4.4-11.0)
[2020-01-11 22:25] LABS: Absolute Lymphocyte Count 3.78 X10^3/uL (0.83-4.51); Absolute Neutrophil Count 8.4 X10^3/uL (2.0-7.7); Basophil# 0.04 X10^3/uL; Basophil% 0.3 % (0-1); Eosinophil# 0.52 X10^3/uL; Eosinophils% 3.8 % (0-5); Lymphocyte # 3.78 X10^3/ul (4.0); Monocyte# 0.97 X10^3/uL; Monocyte% 7.1 % (0-10); NRBC Flagged by Analyzer 0 % (0-5); Neutrophil # 8.35 X10^3/uL (2.7-7.7)
--- NOTE | 2020-01-11 22:26 | ED.DCSUM_ITS ---
- ER Visit Summary Date of Service: 01/11/20 Chief Complaint: [Nausea and vomiting/abdominal pain] History of Present Illness: The patient is a 49 F [presents to the emergency department with 4-day history of nausea and vomiting. Patient's had intermittent abdominal pain. Patient also thinks she may have passed the tapeworm last week. Patient states that her primary care physician is ordered a CAT scan to be done next week of her abdomen and pelvis. Patient denies recent travel. She has history of colitis and states she always has some diarrhea but it has been no different than usual. She denies any blood in her stool. She denies any fevers. Patient's had prior appendectomy as well as hysterectomy. Denies urinary symptoms. States that she threw up about 6 times today.] Physical Examination: [HEENT-PERRLA, EOMI. Cranial nerves II through XII grossly intact. TMs clear. Mucous membranes moist. No adenopathy. Cardiovascular-regular rate and rhythm without murmur or ectopy Lungs-clear to auscultation, chest wall stable without crepitus or subcu emphysema Abdomen-normoactive bowel sounds, soft. Patient has tenderness to palpation in the epigastric region as well as the right upper quadrant with some mild guarding. There is no rebound, rigidity, or peritoneal signs. Extremities-intact ?4, normal range of motion, normal pulses, atraumatic] Test Results: [CBC with differential obtained showed a slightly elevated white count 13.7, hemoglobin 14.8, hematocrit 45, placed 348. Chemistries unremarkable. LFTs normal. Lipase was 46. Urinalysis was positive for nitrites but no other significant signs of infection she had 0-5 WBCs she did have +2 bacteria.] EKG obtained arrival shows sinus rhythm with a ventricular rate of 74 bpm with no acute segment changes. Ultrasound of the gallbladder obtained showed some nonspecific gallbladder wall thickening measuring 5 mm. Common bile duct was 4.4 mm. Patient had no pericholecystic fluid. Patient had negative sonographic Walters sign. Emergency Department Course and Treatment: [IV line was tablets on arrival. Patient given a liter normal same fluid bolus. Patient given Zofran 4 mg IV.] Treatment Plan: [Discussed with patient possibly obtaining a CT scan of her abdomen pelvis although she has one ordered for next week and she does not want to do that tonight. Her abdomen is benign therefore I feel this is reasonable to wait. I did order stool for ova and parasites as well as enteric pathogens however patient unable to give a sample. Patient states that her primary care doctor also ordered a stool culture which she was to take in.] Patient to follow-up with primary care physician within next 3 to 5 days. Patient given a prescription for Zofran. Disposition: [Discharged home in stable condition] Impression: [Vomiting and diarrhea-etiology uncertain] This note was generated with [employer] dictation software. It may contain incorrect words, spelling, and punctuation that were not noted in review of the chart prior to signing
[2020-01-11 22:37] LABS: ALB/GLOB Ratio 1.1 RATIO (0.9-2.4); AST(SGOT) 15 U/L (15-37); Alanine Aminotransfer ALT/SGPT 17 U/L (13-56); Albumin, Serum 3.8 g/dL (3.2-5.0); Alkaline Phosphatase 96 U/L (45-117); Anion Gap 4 (5-15); BUN 7 mg/dL (7-18); BUN/Creat Ratio 6.7 RATIO (10-20); Calcium,Total 9.1 mg/dL (8.5-10.1); Chloride 106 mmol/L (98-107); Creatinine, Serum 1.05 mg/dL (0.55-1.02); EST Glomerular Filtration Rate 59 mL/min (>60); Est Glom Filt Rate - Afr Amer 71 mL/min (>60); Estimated Creatinine Clearance 55.35 ml/min; Globulin 3.6 g/dL (2.2-4.2); Glucose 117 mg/dL (74-106); Lipase 46 U/L (73-393); Potassium 3.9 mmol/L (3.5-5.1); Protein, Total 7.4 g/dL (6.4-8.2); Sodium Level 138 mmol/L (136-145)
[2020-01-11 22:39] LABS: Mucous, Urine 0 SEEN /hpf (<or=2+); Red Blood Cells-Urine 0 SEEN /hpf (0-5)
[2020-01-11] MEDS: 0.9% Normal Saline 1,000 ML 1000 ML IV (22:48)
[2020-01-11] MEDS: Ondansetron 4 MG/2 ML Vial IV (22:48)
[2020-01-11 22:53] LABS: Color, Urine Straw (Yellow); Glucose, Dipstick Normal (Normal); Ketone-Dipstick Negative (Negative); Leukocyte Esterase-Dipstick 25 /ul (Negative); Nitrite-Dipstick Positive (Negative); Occult Blood-Urine 25 /ul (Negative); Protein-Dipstick Negative (Negative); Urine Bilirubin Dipstick Negative (Negative); Urine Clarity Clear (Clear); Urine Urobilinogen Normal (Normal); Urine pH 6.5 (5.0 - 8.0)
[2020-01-11 23:03] LABS: Bacteria 2+ /hpf (None Seen); Squamous Epithelial Cells - UA 5-10 SEEN /hpf (5-10); White Blood Cells 0-5 SEEN /hpf (0-5)
[2020-01-11 23:19] LABS: Lactic Acid 0.9 mmol/L (0.4-1.9)
--- NOTE | 2020-01-12 00:39 | ED.DEP ---
ED Disposition - Plan for ED Patient: Instructions: ED Vomiting and Diarrhea Nonspecific Adult, ED Abdominal Pain Unkn Cause Fem Prescriptions: Ondansetron [Zofran Odt] 4 mg PO Q8H PRN PRN #10 tab PRN Reason: Nausea Prescription Printed Referrals: Care Physician,No Primary [Primary Care Provider] - 5-7 Days
[2020-01-12 00:49] VITALS: BP 145/94; PULSE 61; RESP 18; O2SAT 98
== END 2020-01-12 00:50 | disposition home or self-care (01) ==
LOC: ED 22:59
PROVIDERS: Emergency Provider Emergency Medicine
DX: R11.2 Nausea with vomiting, unspecified (principal); R19.7 Diarrhea, unspecified; F17.200 Nicotine dependence, unspecified, uncomplicated
CPT/HCPCS: 76705; 80053; 81001; 83605; 83690; 85025; 87086; 87088; 93005; 96361; 96374; 99284; J7030; A4216; J2405

== ENCOUNTER 2020-04-21 08:34 | Emergency (ER) | payer MEDICAID, SELFPAY ==
[2020-04-21 08:34] VITALS: BP 91/48; PULSE 103; RESP 15; TEMP 36.2; O2SAT 99; BMI 33.5
[2020-04-21 08:37] VITALS: BP 150/98; PULSE 79; RESP 17; TEMP 36.4; O2SAT 99
--- NOTE | 2020-04-21 09:02 | ED.DCSUM_ITS ---
- ER Visit Summary Date of Service: 04/21/20 Chief Complaint: [Not feeling well] History of Present Illness: The patient is a 49 F [presents to the emergency department with multiple complaints that started yesterday. Patient states that she initially started with diarrhea that was watery and now she is passing white mucus that is sometimes blood-tinged. Patient also has developed a cough that is productive of some white phlegm at times. She has had some chills. Patient complains of a sore throat. She describes abdominal cramping. Patient denies urinary symptoms. She does have a headache. She denies any exposures to COVID-19. She did have surgery on March 31 to repair lower esophageal sp hincter and a diaphragmatic hernia. Patient surgery was in [place].] Physical Examination: [HEENT-PERRLA, EOMI. Cranial nerves II through XII grossly intact. TMs clear. Mucous membranes moist. No adenopathy. Slight pharyngeal erythema. No exudates. Uvula midline. No trismus. Cardiovascular-regular rate and rhythm without murmur or ectopy Lungs-clear to auscultation, chest wall stable without crepitus or subcu emphysema Abdomen-normoactive bowel sounds, soft, nontender, no rebound or rigidity, no peritoneal signs. Extremities-intact ?4, normal range of motion, normal pulses, atraumatic. No rashes.] Test Results: [CBC with differential obtained showed a white count 21,000, hemoglobin 13, hematocrit 41, placed 289. Chemistries unremarkable. Urinalysis was normal. Influenza screen was negative. COVID-19 test was positive. Chest x-ray showed nothing acute on my interpretation]. Regarding the elevated white blood cell count patient states that this is a chronic finding for her and etiology is uncertain. Emergency Department Course and Treatment: [IV line established. Patient was given normal saline on arrival. Her blood pressure improved into the 150 systolic. Patient was given Zofran for her nausea.] Treatment Plan: [Plan will be to discharge patient home with a prescription for Zofran as well as Bentyl. Patient advised to return if increasing shortness of breath or condition should worsen anyway. To quarantine/isolate.] Disposition: [Discharged home in stable condition] Impression: [[id number] syndrome] This note was generated with [employer] software. It may contain incorrect words, spelling, and punctuation that were not noted in review of the chart prior to signing ED Disposition - Plan for ED Patient: Referrals: Care Physician,No Primary [Primary Care Provider] -
[2020-04-21 09:37] VITALS: BP 151/76; PULSE 73; RESP 15; TEMP 36.2; O2SAT 99
[2020-04-21] MEDS: Ondansetron 4 MG/2 ML Vial IV (09:45)
[2020-04-21] MEDS: 0.9% Normal Saline 1,000 ML 1000 ML IV (09:45)
[2020-04-21 10:00] VITALS: BP 151/76; PULSE 79; RESP 15; TEMP 36.3; O2SAT 97
[2020-04-21 10:02] LABS: Bacteria 0 SEEN /hpf (None Seen); Mucous, Urine 0 SEEN /hpf (<or=2+)
[2020-04-21 10:08] LABS: Color, Urine Yellow (Yellow); Glucose, Dipstick Normal (Normal); Ketone-Dipstick Negative (Negative); Leukocyte Esterase-Dipstick Negative /ul (Negative); Nitrite-Dipstick Negative (Negative); Occult Blood-Urine 25 /ul (Negative); Protein-Dipstick Negative (Negative); Urine Bilirubin Dipstick Negative (Negative); Urine Clarity Clear (Clear); Urine Urobilinogen Normal (Normal)
--- NOTE | 2020-04-21 10:10 | RAD_ITS ---
STUDY: X-RAY CHEST REASON FOR EXAM: Female, 49 years old. N/V; SORE THROAT TECHNIQUE: Single AP portable view of the chest. COMPARISON: Comparison is made with prior study dated 10/29/2018. FINDINGS: EKG electrodes are seen. The lungs are clear and expanded. There is no demonstrated pleural abnormality. Normal size heart. Normal mediastinum and amy. Normal visualized pulmonary arteries. Normal visualized aortic arch and descending thoracic aorta. There are diffuse degenerative changes of the visualized thoracic spine. Normal visualized ribs, clavicles, and shoulders. A metallic ring is seen in the region of the gastroesophageal junction most likely from prior hiatal hernia repair. RAD/Chest 1 View (Portable) IMPRESSION: No acute abnormality is seen. Electronically Signed: Chico Renteria, at 10:38 EST , Service support ,
[2020-04-21 10:12] LABS: Absolute Lymphocyte Count 2.09 X10^3/uL (0.83-4.51); Absolute Neutrophil Count 17.3 X10^3/uL (2.0-7.7); Basophil# 0.03 X10^3/uL; Basophil% 0.1 % (0-1); Eosinophil# 0.14 X10^3/uL; Eosinophils% 0.7 % (0-5); Hematocrit 40.7 % (37-47); Hemoglobin 13.4 g/dL (12.0-15.0); Lymphocyte # 2.09 X10^3/ul (4.0); Lymphocyte % 9.9 % (19-41); Mean Corp Hgb Conc 32.9 g/dL (32-36); Mean Corpuscular Hgb 31.1 pg (27.0-32.0); Mean Corpuscular Volume 94.4 fL (81-99); Mean Platelet Vol. 8.9 fl (6.2-12.0); Monocyte# 1.28 X10^3/uL; Monocyte% 6.1 % (0-10); NRBC Flagged by Analyzer 0 % (0-5); Neutrophil # 17.31 X10^3/uL (2.7-7.7); Neutrophil % 82.4 % (47-70); Platelet Count 289 K/mm3 (150-450); RBC Distribution Width SD 52.4 fl (35.1-43.9); Red Blood Count 4.31 M/mm3 (4.2-5.4)
[2020-04-21 10:19] LABS: Red Blood Cells-Urine 0-5 SEEN /hpf (0-5); Squamous Epithelial Cells - UA 0-5 SEEN /hpf (5-10); White Blood Cells 0-5 SEEN /hpf (0-5)
[2020-04-21 10:35] LABS: AST(SGOT) 17 U/L (15-37); Alanine Aminotransfer ALT/SGPT 28 U/L (13-56); Albumin, Serum 3.2 g/dL (3.2-5.0); Alkaline Phosphatase 103 U/L (45-117); Anion Gap 6 (5-15); BUN 10 mg/dL (7-18); BUN/Creat Ratio 11.7 RATIO (10-20); Calcium,Total 8.6 mg/dL (8.5-10.1); Chloride 107 mmol/L (98-107); Creatinine, Serum 0.86 mg/dL (0.55-1.02); EST Glomerular Filtration Rate 75 mL/min (>60); Est Glom Filt Rate - Afr Amer 90 mL/min (>60); Estimated Creatinine Clearance 67.58 ml/min; Globulin 3.3 g/dL (2.2-4.2); Glucose 114 mg/dL (74-106); Protein, Total 6.5 g/dL (6.4-8.2); Sodium Level 137 mmol/L (136-145)
--- NOTE | 2020-04-21 10:45 | ED.DEP ---
ED Disposition - Plan for ED Patient: Instructions: ED Viral Syndrome (Adult) Prescriptions: Dicyclomine HCl [Bentyl] 20 mg PO TIDAC #20 cap Prescription Printed Ondansetron [Zofran Odt] 4 mg PO Q8H PRN PRN #10 tab PRN Reason: Nausea Prescription Printed Referrals: Care Physician,No Primary [Primary Care Provider] -
== END 2020-04-21 11:07 | disposition home or self-care (01) ==
LOC: ED 09:33
PROVIDERS: Emergency Provider Emergency Medicine
DX: B34.9 Viral infection, unspecified (principal); F17.200 Nicotine dependence, unspecified, uncomplicated; J44.9 Chronic obstructive pulmonary disease, unspecified; K21.9 Gastro-esophageal reflux disease without esophagitis
CPT/HCPCS: 36415; 71045; 80053; 81001; 85025; 87426; 87804; 96361; 96374; 99285; J7030; J2405

== ENCOUNTER → 2020-05-26 11:17 | Outpatient (CLI) | payer MEDICAID, SELFPAY ==
--- NOTE | 2020-05-26 11:20 | BI_ITS ---
MAMMOGRAPHY - BILATERAL SCREENING REASON FOR EXAM: Female, 49 years old. Routine annual screening examination. PERTINENT HISTORY: Aunt with breast cancer. TECHNIQUE: Digital bilateral breast ynes (3D mammographic acquisition) in the CC and MLO projections. 2-D mediolateral oblique (MLO) and craniocaudad (CC) views of both breasts were obtained. CAD: Full Field Digital Mammography with Computer Added Detection was performed. COMPARISON: Comparison is made with prior outside examination dated 02/26/2019. FINDINGS: Breast Composition: The breasts are almost entirely fatty. There are no dominant masses or suspicious calcifications. Stable small benign appearing lateral axillary lymph nodes. No other significant abnormalities are identified. There has been no significant change since the prior study. BI/SCREEN MAMM (CAD) W/YNES BILAT IMPRESSION: Stable bilateral screening mammogram. Yearly follow-up mammogram recommended. (A) ASSESSMENT CATEGORY: BIRADS Category 2: Benign. A letter regarding these results will be sent to the patient by the facility within 30 days. Approximately 10% of breast cancers are not detected by mammography. A normal mammogram should not delay biopsy of a clinically suspicious abnormality. [id number] Electronically Signed: Chico Renteria, at 12:41 EST , Service support ,
== END ==
PROVIDERS: PCP Internal Medicine; Referring Provider Internal Medicine; Visit Provider Internal Medicine
DX: Z12.31 Encounter for screening mammogram for malignant neoplasm of breast (principal)
CPT/HCPCS: 77063; 77067

== ENCOUNTER 2020-07-15 14:23 | Emergency (ER) | payer MEDICAID, SELFPAY ==
[2020-07-15 14:24] VITALS: BP 147/84; PULSE 80; RESP 17; TEMP 36.7; O2SAT 99; BMI 30.9
--- NOTE | 2020-07-15 14:30 | RAD_ITS ---
STUDY: X-RAY - RIGHT ANKLE REASON FOR EXAM: Female, 49 years old. INJURY AND SWELLING, PT. FELL ON ICE TECHNIQUE: 3 view(s) of the ankle. COMPARISON: None. FINDINGS: Normal visualized distal tibia and fibula. Nondisplaced transverse avulsion fracture of the lateral malleolus with overlying soft tissue swelling. Normal tibiotalar articulation and ankle mortise. Normal visualized talus and calcaneus. The visualized subtalar, talonavicular, calcaneocuboid and tarsal articulations are normal. Lateral soft tissue swelling. RAD/Ankle min 3 Views IMPRESSION: Nondisplaced transverse avulsion fracture of the lateral malleolus with overlying soft tissue swelling. Electronically Signed: Chico Renteria MD at 14:47 EST , Service support ,
[2020-07-15] MEDS: Naproxen 500 MG Tablet PO (15:11)
--- NOTE | 2020-07-15 15:28 | ED.VISSUMM ---
- ER Visit Summary Date of Service: 07/15/20 Chief Complaint: Right ankle injury History of Present Illness: The patient is a 49 F who presents with a right ankle injury. She slipped on some ice today and fell. She injured her ankle. This occurred 2 hours prior to arrival. Pain is worse with walking. Denies any history of fractures or surgeries to this ankle. Physical Examination: Vital signs are reviewed. Right ankle exam reveals tenderness over the lateral malleolus of the right ankle. There is mild swelling. There is no fifth metatarsal or fibular head tenderness. She has decreased range of motion secondary to pain. Test Results: X-rays reveal a lateral malleolus avulsion fracture of the right ankle Emergency Department Course and Treatment: Patient was given naproxen for pain control. X-rays do appear to show an avulsion fracture of the distal fibula on the right ankle. Patient will be placed in a walking boot. She was instructed to use ice and elevation. I will give her a short course of [place] for pain control at home. She will follow-up with orthopedics. Treatment Plan: [] Disposition: Discharge Impression: Right distal fibula fracture closed This note was generated with [employer] dictation software. It may contain incorrect words, spelling, and punctuation that were not noted in review of the chart prior to signing ED Disposition - Plan for ED Patient: Disposition: Home or Assisted Living Instructions: ED Ankle Fracture, Distal Fibula Prescriptions: Hydrocodone Bitart/Apap 5-325 [[place] 5MG-325MG] 1 tablet PO Q6H PRN PRN 3 Days #10 tablet PRN Reason: Pain Transmission Status: Sent to [facility] Referrals: Susy Funez MD [Primary Care Provider] - Josh Cota DO [STAFF PHYSICIAN] -
[2020-07-15 15:52] VITALS: PULSE 77; RESP 16; O2SAT 98
== END 2020-07-15 15:55 | disposition home or self-care (01) ==
PROVIDERS: Emergency Provider Emergency Medicine; PCP Internal Medicine
DX: S82.831A Other fracture of upper and lower end of right fibula, initial encounter for closed fracture (principal); F17.200 Nicotine dependence, unspecified, uncomplicated; W00.0XXA Fall on same level due to ice and snow, initial encounter
CPT/HCPCS: 73610; 99283

== ENCOUNTER 2021-04-21 12:18 | Emergency (ER) | payer MEDICARE, MEDICAID, SELFPAY ==
[2021-04-21 12:18] VITALS: BP 116/86; PULSE 99; RESP 16; TEMP 36.1; O2SAT 94; BMI 33.1
[2021-04-21 12:21] VITALS: BP 116/86; PULSE 99; RESP 16; TEMP 36.1; O2SAT 94
--- NOTE | 2021-04-21 13:20 | RAD_ITS ---
STUDY: X-RAY CHEST REASON FOR EXAM: Female, 50 years old. Cough TECHNIQUE: Single AP portable view of the chest. COMPARISON: Comparison is made with prior study dated 10/29/2018. FINDINGS: There is hyperinflation of the lungs consistent with chronic obstructive lung disease (COPD). Stable mild increased markings in the right upper lobe suggestive of scarring. There is no demonstrated pleural abnormality. Normal size heart. Normal mediastinum and amy. Normal visualized pulmonary arteries. There is atherosclerotic calcification of the aortic arch with tortuosity. Normal visualized thoracic spine. Normal visualized ribs, clavicles, and shoulders. Metallic ring is seen at the level of the gastroesophageal junction. RAD/Chest 1 View (Portable) IMPRESSION: No acute abnormality is seen. Electronically Signed: Chico Renteria MD at 13:58 EST , Service support ,
--- NOTE | 2021-04-21 13:20 | EX.ED.VIS.UR ---
HPI HPI - URI History of Present Illness Chief Complaint: Cough Informant: patient Onset/Context/Timing Onset: Days Context: Gradual Onset Timing: Continuous Current Severity: Mild Maximum Severity: Mild Associated Symptoms Associated Symptoms: Positive for Nasal Congestion, Nausea, Vomiting and Diarrhea Narrative Narrative: 50-year-old female history of ulcerative colitis cholesterol and hypertension. Patient states that she tested positive for Covid on April 10 of last 2019. She now has a cough of grayish sputum. At times hemoptysis and a mild bloody nose. Since last 2 days she has developed fevers and vomiting and diarrhea. She is also been vaccinated against Covid. Prior similar symptoms: Yes Recent Illness/Hospitalization: No ROS ROS ED ROS Narrative Cough, fever, nausea, vomiting and diarrhea. Review of Systems ROS Unobtainable: Denies due to encephalopathy Constitutional Constitutional ED: Reports chills and fever(s) Eyes Eyes: Denies change in vision ENT ENT ED: Reports rhinorrhea; Denies ear pain or sore throat Cardiovascular Cardiovascular: Denies chest pain Respiratory/Chest Respiratory/Chest: Reports cough, dyspnea and sputum Gastrointestinal Gastrointestinal: Reports diarrhea, nausea and vomiting; Denies abdominal pain Genitourinary Genitourinary ED: Denies dysuria Musculoskeletal Musculoskeletal: Reports myalgias Integumentary Denies rash Neurologic Neurologic: Denies headache(s) Psychiatric Psychiatric: Denies depression Endocrine Endocrinology: Denies polyuria Hematologic/Lymphatic Hematologic/Lymphatic: Denies easy bruising Allergic/Immunologic Allergic/Immunologic ED: Denies urticaria PFSH PFSH Medical History COPD (chronic obstructive pulmonary disease) Hypertension Ulcerative colitis Home Medications losartan 100 mg PO DAILY 01/08/19 [History Last Taken 04/08/19 05:30] ziprasidone HCl 80 mg PO QHS 01/08/19 [History Last Taken Unknown] albuterol sulfate 2 puff INHALATION Q6H PRN PRN 02/02/19 [History Last Taken Unknown] atorvastatin 20 mg PO DAILY 02/02/19 [History Last Taken Unknown] Vistaril 50 mg PO BID 04/05/19 [History Last Taken Unknown] cyanocobalamin (vitamin B-12) 1,000 mcg PO DAILY@0800 04/05/19 [History Last Taken Unknown] ergocalciferol (vitamin D2) 50,000 unit PO MO 04/05/19 [History Last Taken Unknown] prazosin 1 mg PO QHS 04/05/19 [History Last Taken Unknown] lansoprazole 30 mg PO DAILY #30 cap 05/29/19 [Rx Last Taken Unknown] ondansetron 4 mg PO Q8H PRN PRN #10 tab 01/12/20 [Rx Last Taken Unknown] dicyclomine 20 mg PO TIDAC #20 cap 04/21/20 [Rx Last Taken Unknown] ondansetron 4 mg PO Q8H PRN PRN #10 tab 04/21/20 [Rx Last Taken Unknown] ziprasidone HCl 40 mg PO DAILY 04/21/20 [History Last Taken Unknown] azithromycin [Zithromax Z-Tito] See Rx Instructions .ROUTE .COMPLEX #6 tab 04/21/21 [Rx Last Taken Unknown] prednisone 40 mg PO DAILY 7 Days #14 tab 04/21/21 [Rx Last Taken Unknown] Allergy/AdvReac Type Severity Reaction Status Date / Time meperidine [From Demerol] Allergy Other Verified 04/21/21 12:18 metronidazole [From Flagyl] Allergy Hives Verified 04/21/21 12:18 oxycodone [From Percocet] Allergy Hives Verified 04/21/21 12:18 Penicillins Allergy Hives Verified 04/21/21 12:18 aspirin AdvReac Vomiting Verified 04/21/21 12:18 Social History Smoking Status: Former smoker EXAM Physical Exam Narrative Exam Narrative: Middle-aged female no acute distress vital signs stable afebrile. Does not look septic or toxic. Pulse ox 94% room air no signs hypoxia. H EENT exam unremarkable moist with membranes. No blood in either posterior pharynx or nose currently. Neck nontender no lymphadenopathy. Lungs wet cough with few scattered expiratory wheezes. No rales or rhonchi. Equal symmetrical. Heart regular rhythm rate about 100 no murmur. Abdomen soft nontender. Moving all 4 extremities. Nontender no edema. Neurologically she is awake alert with no focal motor deficits. Const Vital Signs: 04/21/21 12:18 04/21/21 12:21 04/21/21 12:31 Temperature 96.9 F L 96.9 F L Temperature Source Temporal Temporal Pulse Rate 99 99 Respiratory Rate 16 16 Respiratory Effort Non-Labored Short of Breath Respiratory Depth Normal Blood Pressure 116/86 H 116/86 H Blood Pressure Mean 96 96 Pulse Ox 94 94 Oxygen Delivery Method Room Air Room Air Positive well nourished, well developed and obese; Negative for cachectic or contractures General Appearance ED: well developed and NAD; Negative for cachectic, contractures, cyanotic, diaphoretic or pallor Nutritional Appearance: obese; Negative for cachectic HEENT Reports moist mucous membranes normocephalic and atraumatic; Negative for scalp tenderness Face and Sinus: Negative for sinus tenderness, maxillary instability or facial tenderness External Ear: external ears normal Eyes PERRL and EOMs intact bilaterally Neck no lymphadenopathy, supple, no meningeal signs and no JVD General: Negative for anterior neck swelling or lymphadenopathy Resp normal respiratory effort Effort and Inspection: Negative for retractions or pain with movement Auscultation: wheezes; Negative for rales, rhonchi or diminished lung sounds Cardio S1 normal heart sound, S2 normal heart sound and no murmurs Rate: regular rate Rhythm: regular rhythm GI non-tender, non-distended and no masses Inspection: Negative for abdominal distention Auscultation: normoactive bowel sounds Palpation: soft; Negative for tender or guarding Back/Spine no CVA tenderness and normal ROM General Back: Negative for CVA tenderness Cervical Spine: Negative for cervical spine tenderness Extremity normal to inspection and full ROM General Extremety ED: Negative for cyanosis General Extremity: Negative for cyanosis Neuro oriented x3 Sensorium / Orientation: alert, oriented to person, oriented to place and oriented to time; Negative for orientation impaired, lethargic or stuporous Motor Exam: strength 5/5 throughout Psych mental status grossly normal Mood & Affect: Negative for depressed or tearful Skin General Skin Exam: Negative for jaundice or pallor Lesions: no lesions and No lesion noted Rashes: no rashes and No rashes noted MDM MDM MDM Narrative Medical decision making narrative: Middle-aged female with URI symptoms. Chest x-ray and Covid test being obtained. She was given p.o. prednisone due to her wheezing. Repeat exam at 3:47 PM patient doing well be discharged home. She had I went over her test results. Patient be discharged home on prednisone 40 mg a day for a week. Lab Data Attestation: I reviewed the patient's lab results. Lab results narrative: Covid test negative. Chest x-ray unremarkable. Radiography Diagnostic Testing: Clinical Impression(s) from Imaging Studies Chest X-Ray 04/21/21 13:20 IMPRESSION: No acute abnormality is seen. Electronically Signed: Chico Renteria MD at 13:58 EST , Service support , Chest strain, single view portable interpreted myself and radiologist shows no acute abnormality. Normal cardiac silhouette mediastinum. Discharge Plan Triage Chief Complaint: Cough ED Provider: Charli Baker Dx/Rx/DC Orders Clinical Impression: Acute bronchitis Instructions: ED Bronchitis with Wheezing (Adult) Prescriptions: New prednisone 20 mg tablet 40 mg PO DAILY 7 Days Qty: 14 RF: 0 azithromycin [Zithromax Z-Tito] 250 mg tablet See Rx Instructions .ROUTE .COMPLEX Qty: 6 RF: 0 No Action ziprasidone HCl 20 MG capsule 80 mg PO QHS RF: 0 losartan 25 MG tablet 100 mg PO DAILY RF: 0 atorvastatin 20 MG tablet 20 mg PO DAILY RF: 0 albuterol sulfate 1 INHALER inhaler 2 puff inhalation Q6H PRN PRN (Reason: COPD) RF: 0 prazosin 1 MG capsule 1 mg PO QHS RF: 0 cyanocobalamin (vitamin B-12) 500 MCG tablet 1,000 mcg PO DAILY@0800 RF: 0 ergocalciferol (vitamin D2) 50,000 UNIT capsule 50,000 unit PO MO RF: 0 Vistaril 50 mg PO BID RF: 0 lansoprazole 30 MG capsule 30 mg PO DAILY Qty: 30 RF: 0 ondansetron 4 MG tablet 4 mg PO Q8H PRN PRN (Reason: Nausea) Qty: 10 RF: 0 ziprasidone HCl 40 MG capsule 40 mg PO DAILY RF: 0 ondansetron 4 MG tablet 4 mg PO Q8H PRN PRN (Reason: Nausea) Qty: 10 RF: 0 dicyclomine 10 MG capsule 20 mg PO TIDAC Qty: 20 RF: 0 Primary Care Provider: Susy Funez Referrals: Susy Funez MD [Primary Care Provider] - 1 Week if not improving Activity Restrictions/Additional Instructions: Plenty of fluids and rest. Prednisone 40 mg once a day for next 7 days starting tomorrow. Zithromax Z-TITO as prescribed. Follow-up with your doctor if not improving or return if worse. Your chest x-ray today was normal no pneumonia. Your Covid test was negative. Disposition Disposition: Home, Self Care
[2021-04-21] MEDS: predniSONE 20 MG Tablet 60 MG PO (13:40)
[2021-04-21 16:01] VITALS: BP 121/65; PULSE 89; RESP 16; O2SAT 95
== END 2021-04-21 16:02 | disposition home or self-care (01) ==
PROVIDERS: Emergency Provider Emergency Medicine; PCP Internal Medicine
DX: J20.9 Acute bronchitis, unspecified (principal); E66.9 Obesity, unspecified; Z87.891 Personal history of nicotine dependence; Z86.16 Personal history of COVID-19
CPT/HCPCS: 71045; 87426; 99282

== ENCOUNTER 2021-05-19 20:25 | Emergency (ER) | payer MEDICARE, MEDICAID, SELFPAY ==
[2021-05-19 20:26] VITALS: BP 182/102; PULSE 104; RESP 20; TEMP 36.2; O2SAT 92; BMI 33.5
--- NOTE | 2021-05-19 21:57 | EDS_ITS ---
HPI History of Present Illness Chief Complaint: Shortness of Breath Detail of Chief Complaint: Cough and headache and concern for COVID-19 Informant: patient Narrative Narrative: Patient presents to the emergency department with concern for COVID- 19. Patient states she started with symptoms yesterday. Patient has been vaccinated against COVID-19 but has not had the booster. She complains of a cough with green phlegm at times. She complains of a headache. She had a sore throat. She has had nausea. She denies sick contacts. Patient has history of COPD and history of hypertension. PE Risk Factors: Negative for Recent travel [facility] Medical History COPD (chronic obstructive pulmonary disease) Hypertension Ulcerative colitis Home Medications losartan 100 mg PO DAILY 01/08/19 [History Last Taken 04/08/19 05:30] ziprasidone HCl 80 mg PO QHS 01/08/19 [History Last Taken Unknown] albuterol sulfate 2 puff INHALATION Q6H PRN PRN 02/02/19 [History Last Taken Unknown] atorvastatin 20 mg PO DAILY 02/02/19 [History Last Taken Unknown] Vistaril 50 mg PO BID 04/05/19 [History Last Taken Unknown] cyanocobalamin (vitamin B-12) 1,000 mcg PO DAILY@0800 04/05/19 [History Last Taken Unknown] ergocalciferol (vitamin D2) 50,000 unit PO MO 04/05/19 [History Last Taken Unknown] prazosin 1 mg PO QHS 04/05/19 [History Last Taken Unknown] lansoprazole 30 mg PO DAILY #30 cap 05/29/19 [Rx Last Taken Unknown] ondansetron 4 mg PO Q8H PRN PRN #10 tab 01/12/20 [Rx Last Taken Unknown] dicyclomine 20 mg PO TIDAC #20 cap 04/21/20 [Rx Last Taken Unknown] ondansetron 4 mg PO Q8H PRN PRN #10 tab 04/21/20 [Rx Last Taken Unknown] ziprasidone HCl 40 mg PO DAILY 04/21/20 [History Last Taken Unknown] azithromycin [Zithromax Z-Tito] See Rx Instructions .ROUTE .COMPLEX #6 tab 04/21/21 [Rx Last Taken Unknown] prednisone 40 mg PO DAILY 7 Days #14 tab 04/21/21 [Rx Last Taken Unknown] dexamethasone [Decadron] 6 mg PO DAILY #10 tab 05/19/21 [Rx Last Taken Unknown] Allergy/AdvReac Type Severity Reaction Status Date / Time meperidine [From Demerol] Allergy Other Verified 05/19/21 20:28 metronidazole [From Flagyl] Allergy Hives Verified 05/19/21 20:28 oxycodone [From Percocet] Allergy Hives Verified 05/19/21 20:28 Penicillins Allergy Hives Verified 05/19/21 20:28 aspirin AdvReac Vomiting Verified 05/19/21 20:28 Social History Smoking Status: Former smoker ROS ROS ED Constitutional Constitutional ED: Reports systems reviewed and no addt'l complaints, except as documented and fever(s); Denies body ache(s), change in weight or chills Eyes Eyes: Denies acute decrease in peripheral vision, change in vision, double vision or loss of vision ENT ENT ED: Reports none; Denies ear pain, lip swelling, loss taste/smell, neck pain , otalgia or sore throat Cardiovascular Cardiovascular: Reports none; Denies abdominal pain, chest pain with activity, leg edema, lightheadedness, palpitations, rapid heart rate or syncope Respiratory/Chest Respiratory/Chest: Reports none, cough and dyspnea; Denies change in mental status, dry cough, hemoptysis, shortness of breath at rest or shortness of breath with exertion Gastrointestinal Gastrointestinal: Reports none and nausea; Denies abdominal pain, change in stool character, diarrhea, hematemesis, hematochezia, melena, rectal bleeding or vomiting Genitourinary Genitourinary ED: Reports none; Denies abdominal discomfort, anuria, dysuria, genital pain or polyuria Musculoskeletal Musculoskeletal: Reports none and myalgias; Denies arthralgias, back pain, difficulty walking, extremity pain or muscle weakness Integumentary Reports none; Denies abscess or rash Neurologic Neurologic: Reports none and headache(s); Denies abnormal gait, confusion, focal weakness, frequent falls, loss of vision, numbness, paresthesias, radicular pain, vertigo or weakness Psychiatric Psychiatric: Reports systems reviewed and no addt'l complaints, except as documented and none; Denies behavioral changes, confusion, difficulty concentrating, hallucinations, suicidal ideation, tactile hallucinations or visual hallucinations Endocrine Endocrinology: Denies none, cold intolerance, excessive sweating, fatigue or heat intolerance Hematologic/Lymphatic Hematologic/Lymphatic: Reports none; Denies anemia, easy bleeding or easy bruising Allergic/Immunologic Allergic/Immunologic ED: Denies as per HPI, none, lip swelling, mouth swelling, throat swelling, tongue swelling or hives EXAM Physical Exam Const Vital Signs: 05/19/21 20:26 05/19/21 21:18 Temperature 97.1 F L Temperature Source Temporal Pulse Rate 104 H Respiratory Rate 20 H Respiratory Effort Normal Blood Pressure 182/102 H Blood Pressure Mean 128 Pulse Ox 92 Oxygen Delivery Method Room Air Positive well nourished and well developed General Appearance ED: well developed and NAD HEENT Reports TM's clear and moist mucous membranes normocephalic and atraumatic; Negative for trauma or tenderness Tympanic Membrane ED: Yes TM's clear Eyes PERRL and EOMs intact bilaterally General Eye ED: Negative for pale conjunctiva or scleral icterus Neck no lymphadenopathy, supple and no JVD General: Negative for tenderness Chest Wall inspection of chest normal and palpation of chest normal Chest: Negative for tenderness Resp normal respiratory effort and clear to auscultation bilaterally Effort and Inspection: Negative for respiratory distress or pain with movement Auscultation: Negative for rhonchi, wheezes or diminished lung sounds Cardio regular rate, regular rhythm, S1 normal heart sound, S2 normal heart sound and no murmurs Peripheral Pulses: pulses 2+ throughout GI normal to inspection, nondistended, normoactive bowel sounds, soft to palpation, non-tender, non-distended and no masses Back/Spine no CVA tenderness and no thoracic nor lumbar tenderness Extremity normal to inspection General Extremety ED: Negative for edema General Extremity: Negative for edema Neuro oriented x3, CN's II-XII intact bilaterally, no sensory deficits noted and gait normal Sensorium / Orientation: awake, alert, oriented to person, oriented to place and oriented to time Motor Exam: strength 5/5 throughout and strength abnormal Psych mental status grossly normal Skin no rashes or lesions noted and no wounds MDM MDM MDM Narrative Medical decision making narrative: IV line established on arrival. Patient was noted to have positive rapid COVID-19 test. Patient will be started on Decadron even though she is not hypoxic she did have some faint wheezing and given her history of COPD. Patient is willing to have monoclonal antibody therapy and I will refer her for this. Patient advised to return if increasing shortness of breath or conditions worsen anyway. Lab Data Attestation: I reviewed the patient's lab results. Labs: Laboratory Results - last 24 hr 05/19/21 05/19/21 22:28 22:28 WBC 9.3 RBC 4.15 L Hgb 12.7 Hct 37.9 MCV 91.3 MCH 30.6 MCHC 33.5 RDW Std Deviation 51.6 H RDW Coeff of Joseph 15.6 H Plt Count 212 MPV 10.3 Immature Gran % (Auto) 0.500 Neut % (Auto) 86.7 H Lymph % (Auto) 5.7 L Montgomery % (Auto) 6.7 Eos % (Auto) 0.2 Baso % (Auto) 0.2 Absolute Neuts (auto) 8.1 H Absolute Lymphs (auto) 0.53 L Nucleated RBC % 0 Sodium 134 L Potassium 3.9 Chloride 104 Carbon Dioxide 24.0 Anion Gap 6 BUN 7 Creatinine 0.88 Estim Creat Clear Calc 65.31 Est GFR (MDRD) Af Amer 87 Est GFR (MDRD) Non-Af 72 BUN/Creatinine Ratio 8.0 L Glucose 125 H Calcium 8.5 Radiography Chest X-Ray - ED: 1 View Diagnostic Testing: One view chest x-ray obtained interpreted by myself as mild increased markings bilateral lower lobes.. Official report from radiology pending. Discharge Plan Triage Chief Complaint: Shortness of Breath ED Provider: Indira Galindo Dx/Rx/DC Orders Clinical Impression: COVID-19 Instructions: ED COPD Flare, Caring for Someone Who Has COVID-19 Prescriptions: New dexamethasone [Decadron] 6 mg tablet 6 mg PO DAILY Qty: 10 RF: 0 No Action ziprasidone HCl 20 MG capsule 80 mg PO QHS RF: 0 losartan 25 MG tablet 100 mg PO DAILY RF: 0 atorvastatin 20 MG tablet 20 mg PO DAILY RF: 0 albuterol sulfate 1 INHALER inhaler 2 puff inhalation Q6H PRN PRN (Reason: COPD) RF: 0 prazosin 1 MG capsule 1 mg PO QHS RF: 0 cyanocobalamin (vitamin B-12) 500 MCG tablet 1,000 mcg PO DAILY@0800 RF: 0 ergocalciferol (vitamin D2) 50,000 UNIT capsule 50,000 unit PO MO RF: 0 Vistaril 50 mg PO BID RF: 0 lansoprazole 30 MG capsule 30 mg PO DAILY Qty: 30 RF: 0 ondansetron 4 MG tablet 4 mg PO Q8H PRN PRN (Reason: Nausea) Qty: 10 RF: 0 ziprasidone HCl 40 MG capsule 40 mg PO DAILY RF: 0 ondansetron 4 MG tablet 4 mg PO Q8H PRN PRN (Reason: Nausea) Qty: 10 RF: 0 dicyclomine 10 MG capsule 20 mg PO TIDAC Qty: 20 RF: 0 prednisone 20 mg tablet 40 mg PO DAILY 7 Days Qty: 14 RF: 0 azithromycin [Zithromax Z-Tito] 250 mg tablet See Rx Instructions .ROUTE .COMPLEX Qty: 6 RF: 0 Other Ambulatory Orders: COVID Outpatient Monoclonal Antibody Referral (Routine) Timeframe: 1 Day Facility: [facility] - Location: [facility] Ordered By: Dr. Indira Galindo Primary Care Provider: Susy Funez Referrals: Susy Funez MD [Primary Care Provider] - 5-7 Days Disposition Disposition: Home, Self Care
[2021-05-19] MEDS: Ketorolac 15 MG/ML Vial IV (22:27)
[2021-05-19] MEDS: 0.9% Normal Saline 1,000 ML 150 ML IV (22:27)
[2021-05-19 22:35] LABS: Absolute Lymphocyte Count 0.53 X10^3/uL (0.83-4.51); Absolute Neutrophil Count 8.1 X10^3/uL (2.0-7.7); Basophil# 0.02 X10^3/uL; Basophil% 0.2 % (0-1); Eosinophil# 0.02 X10^3/uL; Eosinophils% 0.2 % (0-5); Hematocrit 37.9 % (37-47); Hemoglobin 12.7 g/dL (12.0-15.0); Lymphocyte # 0.53 X10^3/ul (0.83-4.51); Lymphocyte % 5.7 % (19-41); Mean Corp Hgb Conc 33.5 g/dL (32-36); Mean Corpuscular Hgb 30.6 pg (27.0-32.0); Mean Corpuscular Volume 91.3 fL (81-99); Mean Platelet Vol. 10.3 fl (6.2-12.0); Monocyte# 0.63 X10^3/uL; Monocyte% 6.7 % (0-10); NRBC Flagged by Analyzer 0 % (0-5); Neutrophil # 8.09 X10^3/uL (2.7-7.7); Neutrophil % 86.7 % (47-70); POSITIVE COUNT YES; POSITIVE DIFFERENTIAL YES; Platelet Count 212 K/mm3 (150-450); RBC Distribution Width CV 15.6 % (11.6-14.6); RBC Distribution Width SD 51.6 fl (35.1-43.9); Red Blood Count 4.15 M/mm3 (4.2-5.4); White Blood Count 9.3 K/mm3 (4.4-11.0)
[2021-05-19 22:43] LABS: Differential Indicated SCAN CRITERIA MET
--- NOTE | 2021-05-19 22:50 | RAD_ITS ---
STUDY: X-RAY CHEST REASON FOR EXAM: Female, 50 years old. dyspnea TECHNIQUE: Single AP portable view of the chest. COMPARISON: April 21, 2021. CT abdomen and pelvis May 29, 2019. FINDINGS: No focal infiltrates or effusions. No pneumothorax. Normal size heart. Normal mediastinum and amy. Normal visualized pulmonary arteries. Normal visualized aortic arch and descending thoracic aorta. Normal visualized thoracic spine. Normal visualized ribs, clavicles, and shoulders. There is no demonstrated abnormality of the visualized soft tissue structures of the upper abdomen. Metallic ring gastroesophageal junction unchanged suggestive of gastroesophageal band surgery. RAD/Chest 1 View (Portable) IMPRESSION: No acute cardiopulmonary disease. Electronically Signed: Christiano Durham MD at 23:34 EST , Service support ,
[2021-05-19 22:57] LABS: Anion Gap 6 (5-15); BUN 7 mg/dL (7-18); Calcium,Total 8.5 mg/dL (8.5-10.1); Chloride 104 mmol/L (98-107); Creatinine, Serum 0.88 mg/dL (0.55-1.02); EST Glomerular Filtration Rate 72 mL/min (>60); Est Glom Filt Rate - Afr Amer 87 mL/min (>60); Estimated Creatinine Clearance 65.31 ml/min; Glucose 125 mg/dL (74-106); Potassium 3.9 mmol/L (3.5-5.1); Sodium Level 134 mmol/L (136-145)
[2021-05-19] MEDS: dexAMETHasone 4 MG Tablet 6 MG PO (23:31)
[2021-05-19 23:34] VITALS: BP 164/78; PULSE 98; RESP 18; O2SAT 94
== END 2021-05-19 23:35 | disposition home or self-care (01) ==
PROVIDERS: Emergency Provider Emergency Medicine; PCP Internal Medicine
DX: U07.1 COVID-19 (principal); J44.9 Chronic obstructive pulmonary disease, unspecified; I10 Essential (primary) hypertension; Z79.899 Other long term (current) drug therapy; K51.90 Ulcerative colitis, unspecified, without complications; Z87.891 Personal history of nicotine dependence
CPT/HCPCS: 71045; 80048; 85025; 87040; 87426; 87804; 96374; 99283; J7030; A4216

== ENCOUNTER 2023-11-07 12:18 | Inpatient (IN) | payer MEDICARE, SELFPAY ==
[2023-11-07] VITALS (32 sets, daily range): BP systolic 84–176; BP diastolic 52–159; PULSE 77–159; RESP 12–36; TEMP 36.1–37.2; O2SAT 85–100; BMI 30.4; BMI 30.7
--- NOTE | 2023-11-07 12:45 | CT_ITS ---
STUDY: CT BRAIN WITHOUT CONTRAST REASON FOR EXAM: Female, 53 years old. Headaches. Generalized illness and vomiting. RADIATION DOSAGE (If Supplied By Facility): CTDIvol = ( 44.99 ) mGy, DLP = ( 779.24 ) mGycm TECHNIQUE: Transaxial CT imaging of the brain was performed without administration of intravenous contrast material. Individualized dose optimization techniques were used for this CT. COMPARISON: No relevant priors. FINDINGS: Normal soft tissue structures. Normal calvarium. Normal size ventricles and extra-axial spaces for the patient''s age. Normal white matter tracts of the cerebral hemispheres. Normal basal ganglia and thalami. Normal brainstem. Normal cerebellum. There is no intracranial hemorrhage. There are no findings of an acute ischemic infarction. Mild degree of mucosal thickening of the maxillary sinus bilaterally. There is partial opacification of the ethmoid sinuses as well as the frontal sinuses. CT/Brain/Head without Contrast IMPRESSION: Sinusitis. Electronically Signed: Chico Renteria MD at 13:27 EDT ,
--- NOTE | 2023-11-07 12:46 | EX.ED.VIS.HA ---
HPI History of Present Illness Chief Complaint: Headache Informant: patient Onset/Context/Timing Onset: Today Timing: Continuous Quality -Headache: Positive for Similar Prior Headaches and Sharp Current Severity: Moderate Maximum Severity: Severe Associated Symptoms/Injury Associated Symptoms: Positive for Nausea; Negative for Fever, Vomiting or Sore Throat Narrative Narrative: 53-year-old female history of severe headaches. Since she woke up this morning with one of her headaches. She gets them almost weekly. Associated nausea but no vomiting. Denies any head trauma. She is not on blood thinners. Denies any trouble moving arms or legs. Denies any fever or neck pain. She has had similar headaches of this before. She has had imaging reportedly that was negative. But none here. Prior similar symptoms: Yes Recent Illness/Hospitalization: No PFSH PFSH Medical History Ulcerative colitis Hypertension COPD (chronic obstructive pulmonary disease) Home Medications ?Medication ?Instructions ?Recorded ?Last Taken ?Type albuterol sulfate 90 mcg/actuation 2 puff inhalation Q6H PRN COPD 02/02/19 11/06/23 History aerosol inhaler ziprasidone HCl 40 mg capsule 40 mg PO DAILY 04/21/20 11/06/23 History atorvastatin 40 mg tablet 40 mg PO QHS 11/07/23 Unknown History hydroxyzine pamoate 100 mg capsule 100 mg PO QHS 11/07/23 11/06/23 History losartan 100 mg tablet 100 mg PO DAILY 11/07/23 11/06/23 History omeprazole 40 mg capsule,delayed 40 mg PO DAILY 11/07/23 11/06/23 History release sertraline 50 mg tablet 50 mg PO DAILY 11/07/23 11/06/23 History ziprasidone HCl 80 mg capsule 80 mg PO QHS 11/07/23 11/06/23 History Allergy/AdvReac Type Severity Reaction Status Date / Time meperidine (From Demerol) Allergy Other Verified 11/07/23 12:19 metronidazole (From Flagyl) Allergy Hives Verified 11/07/23 12:19 oxycodone (From Percocet) Allergy Hives Verified 11/07/23 12:19 Penicillins Allergy Hives Verified 11/07/23 12:19 aspirin AdvReac Vomiting Verified 11/07/23 12:19 Social History Smoking Status: Former smoker ROS ROS ED ROS Narrative Diffuse headache. Nausea. Review of Systems ROS Unobtainable: Denies due to encephalopathy Constitutional Constitutional ED: Denies chills or fever(s) Eyes Eyes: Denies blurry vision ENT ENT ED: Denies ear pain Cardiovascular Cardiovascular: Denies chest pain Respiratory/Chest Respiratory/Chest: Denies cough or dyspnea Gastrointestinal Gastrointestinal: Reports nausea; Denies abdominal pain, constipation, diarrhea, melena or vomiting Genitourinary Genitourinary ED: Denies dysuria or hematuria Integumentary Denies abscess Neurologic Neurologic: Reports headache(s); Denies paresthesias or weakness Psychiatric Psychiatric: Denies anxiety or depression Endocrine Endocrinology: Denies polydipsia, polyphagia or polyuria Hematologic/Lymphatic Hematologic/Lymphatic: Denies easy bleeding, easy bruising or lymphadenopathy Allergic/Immunologic Allergic/Immunologic ED: Denies mouth swelling, tongue swelling or urticaria EXAM Physical Exam Narrative Exam Narrative: 53-year-old female vital signs are stable she is afebrile she does not look septic toxic. She clinically appears that she does not feel well. She is awake and alert. No family present in the room. H EENT exam pupils round react to light. There is no signs of trauma to her face or scalp. Nontender. No facial droop. Normal speech. Neck nontender no lymphadenopathy. No meningismus. Able to touch chin to chest. Lungs clear to auscultation bilaterally. Heart regular rhythm rate about 115 no murmur. Chest wall and ribs are nontender. Abdomen soft nontender. Nondistended. Moving all 4 extremities. 5/5 epic willow specialist strength. Dorsi plantarflexion intact. [id number] within normal limits. Neurologic exam normal. NIH 0. Const Vital Signs: 11/07/23 12:18 11/07/23 12:18 11/07/23 14:18 Temperature 99 F Temperature Source Temporal Pulse Rate 121 H 118 H 112 H Respiratory Rate 22 H 20 H 20 H Blood Pressure 145/71 H 156/89 H 157/109 H Blood Pressure Mean 95 111 125 Pulse Ox 97 97 85 Oxygen Delivery Method Room Air Room Air Room Air Oxygen Flow Rate (L/min) 11/07/23 14:27 11/07/23 14:38 11/07/23 15:21 Temperature 98 F Temperature Source Pulse Rate 120 H Respiratory Rate 29 H Blood Pressure 165/94 H Blood Pressure Mean 117 Pulse Ox 90 92 91 Oxygen Delivery Method Nasal Cannula Nasal Cannula Oxygen Flow Rate (L/min) 2 4 11/07/23 15:21 Temperature 98 F Temperature Source Oral Pulse Rate 122 H Respiratory Rate 22 H Blood Pressure 165/94 H Blood Pressure Mean 117 Pulse Ox 90 Oxygen Delivery Method Nasal Cannula Oxygen Flow Rate (L/min) 4 Positive well nourished and well developed; Negative for cachectic or contractures General Appearance ED: well developed and NAD; Negative for cachectic, contractures, cyanotic or diaphoretic Nutritional Appearance: Negative for cachectic HEENT Reports normocephalic and moist mucous membranes atraumatic; Negative for trauma, tenderness, temporal artery tenderness or vesicular rash Face and Sinus: Negative for sinus tenderness Eyes PERRL and EOMs intact bilaterally General Eye ED: Negative for pale conjunctiva or scleral icterus Neck no lymphadenopathy, supple, no meningeal signs and no JVD General: Negative for tenderness or other Resp normal respiratory effort and clear to auscultation bilaterally Effort and Inspection: Negative for retractions Auscultation: Negative for rales, rhonchi or wheezes Cardio regular rate, regular rhythm, S1 normal heart sound, S2 normal heart sound and no murmurs Rate: Negative for bradycardia or tachycardic Rhythm: Negative for abnormal rhythm GI non-tender and non-distended Auscultation: normoactive bowel sounds Palpation: soft; Negative for firm, tender or guarding Back/Spine no CVA tenderness General Back: Negative for CVA tenderness or tenderness Cervical Spine: Negative for cervical spine tenderness Thoracic Spine / Upper Back: Negative for thoracic spinal tenderness Lumbar Spine / Lower Back: Negative for lumbar spinal tenderness Extremity normal to inspection, full ROM and normal capillary refill General Extremety ED: Negative for edema, tenderness or other findings General Extremity: Negative for edema or other findings Neuro oriented x3 and CN's II-XII intact bilaterally Sensorium / Orientation: awake, alert, oriented to person, oriented to place and oriented to time; Negative for orientation impaired, lethargic or stuporous Coordination / Balance: [id number] test normal Speech: speech normal Motor Exam: strength 5/5 throughout Psych mental status grossly normal Attitude: No agitated Mood & Affect: Negative for depressed, anxious or tearful Skin Lesions: no lesions Rashes: no rashes MDM MDM MDM Narrative Medical decision making narrative: 53-year-old female with a history of headaches denies any prior history of intracranial bleed. She is on no blood thinners. She awoke this morning with her typical bad headache that she gets almost weekly. Associated nausea but no vomiting or diarrhea. She be treated with IV fluids, Toradol, Zofran and Benadryl. Will obtain CAT scan of her head because she has never had any imaging here. And reevaluated. Currently her neurologic exam is normal. Repeat exam around 230 patient said it got better with the medications we gave her we treated for headache as it is her initial complaint. Then she states she was having some chest discomfort. When asked her more about that because she had said nothing about chest discomfort or shortness of breath on her initial presentation she said for last several months she has been having exertional dyspnea and occasional chest pain. She has no cardiac history she is never had DVT or PE risk factors. She does occasionally smoke. She underwent a cardiac workup. It showed an elevated troponin to 623. I will speak to the hospitalist about admitting her to the PCU my guess is she will most likely need heart cath tomorrow morning. Currently she has no chest pain. History & Record Review Discussion w/independent historian: Patient Lab Data Attestation: I reviewed the patient's lab results. Lab results narrative: CBC shows a white count 18.9. She has had elevated white counts before. H&H 14 and 41. Platelets 237. D-dimer is -0.34. Chemistries show a gap of 10. Normal BUN of 11 creatinine 1.2. Liver enzymes normal. Lipase of 10. Her troponins elevated 623. Labs: Laboratory Results - last 24 hr 11/07/23 11/07/23 14:34 14:35 WBC 18.9 H RBC 4.48 Hgb 14.0 Hct 41.9 MCV 93.5 MCH 31.3 MCHC 33.4 RDW Std Deviation 46.1 H RDW Coeff of Joseph 13.5 Plt Count 237 MPV 10.0 Immature Gran % (Auto) 0.500 Neut % (Auto) 86.8 H Lymph % (Auto) 7.7 L Powell % (Auto) 4.6 Eos % (Auto) 0.2 Baso % (Auto) 0.2 Absolute Neuts (auto) 16.5 H Absolute Lymphs (auto) 1.45 Nucleated RBC % 0 D-Dimer Quant (PE/DVT) 0.34 Sodium 144 Potassium 3.7 Chloride 114 H Carbon Dioxide 20.0 L Anion Gap 10 BUN 11 Creatinine 1.20 H Estim Creat Clear Calc 55.04 Est GFR (MDRD) Af Amer 60 Est GFR (MDRD) Non-Af 50 L BUN/Creatinine Ratio 9.2 L Glucose 163 H Calcium 8.4 L Total Bilirubin 0.60 AST 20 ALT 17 Alkaline Phosphatase 88 Troponin I High Sens 623 H* Total Protein 6.5 Albumin 3.3 Globulin 3.2 Albumin/Globulin Ratio 1.0 Lipase 10 L Radiography Chest X-Ray - ED: 1 View, Read by ED Physician, Heart, Mediastinum, Bony Structures, No Acute Disease and Chronic Changes Diagnostic Testing: Clinical Impression(s) from Imaging Studies Brain CT 11/07/23 12:45 IMPRESSION: Sinusitis. Electronically Signed: Cihco Renteria MD at 13:27 EDT , Chest X-Ray 11/07/23 14:25 IMPRESSION: Increased interstitial pattern suggestive of CHF. Electronically Signed: Chico Renteria MD at 14:45 EDT , Chest x-ray, single view, interpreted by myself and radiologist shows chronic changes. No acute process. Patient is a smoker. Rhythm Strip Rhythm Strip: Sinus Tach Rate: 113 Ectopy: None EKG Initial EKG: Attestation: I personally reviewed and interpreted this EKG as follows: Interpretation: No Acute Injury Pattern and Sinus Tachycardia Comments: Sinus tachycardia rate of 113. Inverted T waves in lead I, aVL and V2 3, 4, 5 and 6. Prior EKG tracings: not available for review Critical Care Time Critical Care Time: Yes Critical care time (excluding procedures): 30-74 minutes, Including time spent:, Discussing w/Patient &/or Family/Assembler Insulator, Discussing w/Consultants, Arranging Admission or Transfer, Performing Direct Patient Care at Bedside and - (34 minutes.) Discharge Plan Triage Chief Complaint: Headache ED Provider: Charli Baker Dx/Rx/DC Orders Clinical Impression: Headache, Exertional dyspnea, Elevated troponin, Non-ST elevated myocardial infarction Prescriptions: No Action ziprasidone HCl 20 MG capsule 80 mg PO QHS losartan 25 MG tablet 100 mg PO DAILY atorvastatin 20 MG tablet 20 mg PO DAILY albuterol sulfate 1 INHALER inhaler 2 puff inhalation Q6H PRN PRN (Reason: COPD) prazosin 1 MG capsule 1 mg PO QHS cyanocobalamin (vitamin B-12) 500 MCG tablet 1,000 mcg PO DAILY@0800 ergocalciferol (vitamin D2) 50,000 UNIT capsule 50,000 unit PO MO Vistaril 50 mg PO BID lansoprazole 30 MG capsule 30 mg PO DAILY Qty: 30 0RF ondansetron 4 MG tablet 4 mg PO Q8H PRN PRN (Reason: Nausea) Qty: 10 0RF ziprasidone HCl 40 MG capsule 40 mg PO DAILY ondansetron 4 MG tablet 4 mg PO Q8H PRN PRN (Reason: Nausea) Qty: 10 0RF dicyclomine 10 MG capsule 20 mg PO TIDAC Qty: 20 0RF prednisone 20 mg tablet 40 mg PO DAILY 7 Days Qty: 14 0RF azithromycin [Zithromax Z-Tito] 250 mg tablet See Rx Instructions .ROUTE .COMPLEX Qty: 6 0RF Rx Instructions: For 250 mg dose pack: take 500 mg today (day 1), then 250 mg for 4 days (days 2-5) dexamethasone [Decadron] 6 mg tablet 6 mg PO DAILY Qty: 10 0RF Primary Care Provider: Susy Funze Referrals: Susy Funez MD [Primary Care Provider] - Print Language: Dominican Disposition Disposition: Acute Care Hospital [facility]
[2023-11-07] MEDS: 0.9% Normal Saline (1000mL) 1,000 ML 1000 ML IV (13:07)
[2023-11-07] MEDS: Ondansetron 4 MG/2 ML Vial IV ×3 (13:07→21:37)
[2023-11-07] MEDS: Ketorolac 30 MG/ML Syringe IV (13:09)
[2023-11-07] MEDS: DiphenhydrAMINE 50 MG/ML Syringe IV (13:09)
--- NOTE | 2023-11-07 14:25 | RAD_ITS ---
STUDY: X-RAY CHEST REASON FOR EXAM: Female, 53 years old. Chest pain TECHNIQUE: Single AP portable view of the chest. COMPARISON: Comparison is made with prior study dated May 19, 2021. FINDINGS: EKG electrodes are seen. Since prior study, there is been an increase in the interstitial pattern worse in the lower lobe suggestive of a mild degree of CHF. A distal esophageal ring is seen. There is no demonstrated pleural abnormality. Normal size heart. Normal mediastinum and amy. Normal visualized pulmonary arteries. Normal visualized aortic arch and descending thoracic aorta. Normal visualized thoracic spine. Normal visualized ribs, clavicles, and shoulders. There is no demonstrated abnormality of the visualized soft tissue structures of the upper abdomen. RAD/Chest 1 View (Portable) IMPRESSION: Increased interstitial pattern suggestive of CHF. Electronically Signed: Chico Renteria MD at 14:45 EDT ,
--- NOTE | 2023-11-07 14:27 | EKG12_ITS ---
Test Reason : GENERAL Blood Pressure : / mmHG Vent. Rate : 113 BPM Atrial Rate : 113 BPM P-R Int : 170 ms QRS Dur : 086 ms QT Int : 322 ms P-R-T Axes : 061 -11 143 degrees QTc Int : 441 ms Sinus tachycardia Septal infarct , age undetermined T wave abnormality, consider anterolateral ischemia Abnormal ECG Confirmed by LARRY FRANCO, YVROSE ([id number]), purchasing expeditor MARYBETH GALICIA ([id number]) on 11/09/2023 8:13:53 AM Referred By: Confirmed By:YVROSE JUAREZ MD
--- NOTE | 2023-11-07 14:39 | ED.RN ---
UPON RE-EVALUATING PT, SHE COMPLAINS OF CHEST PRESSURE, DYSPNEA AND ABD PAIN. MD AT BEDSIDE TO EVALUATE, VITALS SHOW SPO2 85% ON ROOM AIR. O2 APPLIED. NEW ORDERS PLACED. PT STATES SHE'S HAD CHEST PRESSURE, DYSPNEA AND ABD PAIN FOR PAST SEVERAL MONTHS, FORGOT TO SAY ANYTHING EARLIER.
[2023-11-07 14:42] LABS: Absolute Lymphocyte Count 1.45 X10^3/uL (0.83-4.51); Absolute Neutrophil Count 16.5 X10^3/uL (2.0-7.7); Basophil# 0.04 X10^3/uL; Basophil% 0.2 % (0-1); Eosinophil# 0.03 X10^3/uL; Eosinophils% 0.2 % (0-5); Hematocrit 41.9 % (37-47); Lymphocyte # 1.45 X10^3/ul (0.83-4.51); Lymphocyte % 7.7 % (19-41); Mean Corp Hgb Conc 33.4 g/dL (32-36); Mean Corpuscular Hgb 31.3 pg (27.0-32.0); Mean Corpuscular Volume 93.5 fL (81-99); Monocyte# 0.87 X10^3/uL; Monocyte% 4.6 % (0-10); NRBC Flagged by Analyzer 0 % (0-5); Neutrophil # 16.46 X10^3/uL (2.7-7.7); Neutrophil % 86.8 % (47-70); Platelet Count 237 K/mm3 (150-450); RBC Distribution Width CV 13.5 % (11.6-14.6); RBC Distribution Width SD 46.1 fl (35.1-43.9); Red Blood Count 4.48 M/mm3 (4.2-5.4); White Blood Count 18.9 K/mm3 (4.4-11.0)
[2023-11-07 15:04] LABS: AST(SGOT) 20 U/L (15-37); Alanine Aminotransfer ALT/SGPT 17 U/L (13-56); Albumin, Serum 3.3 g/dL (3.2-5.0); Alkaline Phosphatase 88 U/L (45-117); Anion Gap 10 (5-15); BUN 11 mg/dL (7-18); BUN/Creat Ratio 9.2 RATIO (10-20); Calcium,Total 8.4 mg/dL (8.5-10.1); Chloride 114 mmol/L (98-107); EST Glomerular Filtration Rate 50 mL/min (>60); Est Glom Filt Rate - Afr Amer 60 mL/min (>60); Estimated Creatinine Clearance 55.04 ml/min; Globulin 3.2 g/dL (2.2-4.2); Glucose 163 mg/dL (74-106); Lipase 10 U/L (13-75); Potassium 3.7 mmol/L (3.5-5.1); Protein, Total 6.5 g/dL (6.4-8.2); Sodium Level 144 mmol/L (136-145); Troponin-I HS 623 pg/mL (3.0-54.0)
[2023-11-07 15:09] LABS: D-Dimer Quantitative (DVT/PE) 0.34 FEU/ug/m (0.27-0.49)
--- NOTE | 2023-11-07 15:44 | PCM.HP.STD ---
HPI - General General Date of Admission: 11/07/23 Date of Service: 11/07/23 Chief Complaint: Patient came for headache and then in the ER, complaining of chest pressure HPI Narrative RAYMON HAAS, is a 53 F who initially came to ER for headache as she has history of chronic migraine headache. She states she gets headache 2-3 times a week and follows outside neurologist. Complain of occipital/neck pain with diffuse spread out in head and face, mild blurry vision and 2 times of vomiting in the ED. No fever. She was given Toradol, diphenhydramine and Zofran for symptomatic relief. Her headache got better but then complaining of left-sided chest pressure, 3-4/10 intensity with radiation to left scapula. She still has some chest pressure for last 1 hour. On further history, she told that she has chronic dyspnea on exertion for about 2 to 3 months. She denies prior history of diagnosed CAD, cardiac stent or a stroke. In ED, troponin was done which was high. Twelve-lead EKG shows sinus tachycardia 113 beats per, T wave inversion in V2 through V6, 1 and aVL QTc 441 ms. Prior EKG was normal sinus rhythm with upright T waves on 01/11/2020 [facility] Medical History Seizures Ulcerative colitis Hypertension COPD (chronic obstructive pulmonary disease) Home Medications ?Medication ?Instructions ?Recorded ?Last Taken ?Type albuterol sulfate 90 mcg/actuation 2 puff inhalation Q6H PRN COPD 02/02/19 11/06/23 History aerosol inhaler ziprasidone HCl 40 mg capsule 40 mg PO DAILY 04/21/20 11/06/23 History atorvastatin 40 mg tablet 40 mg PO QHS 11/07/23 Unknown History hydroxyzine pamoate 100 mg capsule 100 mg PO QHS 11/07/23 11/06/23 History losartan 100 mg tablet 100 mg PO DAILY 11/07/23 11/06/23 History omeprazole 40 mg capsule,delayed 40 mg PO DAILY 11/07/23 11/06/23 History release sertraline 50 mg tablet 50 mg PO DAILY 11/07/23 11/06/23 History ziprasidone HCl 80 mg capsule 80 mg PO QHS 11/07/23 11/06/23 History Allergy/AdvReac Type Severity Reaction Status Date / Time meperidine (From Demerol) Allergy Other Verified 11/07/23 12:19 metronidazole (From Flagyl) Allergy Hives Verified 11/07/23 12:19 oxycodone (From Percocet) Allergy Hives Verified 11/07/23 12:19 Penicillins Allergy Hives Verified 11/07/23 12:19 aspirin AdvReac Vomiting Verified 11/07/23 12:19 Surgical History Hx of hysterectomy History of appendectomy Social History Smoking Status: Former smoker ROS ROS Narrative Constitutional: Reports fatigue and weakness. No fever. HEENT: Reports systems reviewed and no addt'l complaints, except as documented Respiratory/Chest: Chronic dyspnea on exertion. No acute shortness of breath or respiratory distress or wheezing. CVS: As described in HPI Gastrointestinal: Denies coffee ground emesis, hematemesis or vomiting Genitourinary: Denies burning urination or new urinary tract symptoms Musculoskeletal: Denies acute joint pain or limited range of motion. No acute injury Neurologic: Denies acute seizure-like symptoms. Headache. Chronic migraine. skin: No ulcer. No rash Endocrinology: Reports systems reviewed and no addt'l complaints, except as documented Hematologic/Lymphatic: Reports systems reviewed and no addt'l complaints, except as documented Rest 14 ROS are negative except as mentioned in HPI Vital Signs Vital Signs Vital Signs: 11/07/23 12:18 11/07/23 12:18 11/07/23 14:18 Temperature 99 F Temperature Source Temporal Pulse Rate 121 H 118 H 112 H Respiratory Rate 22 H 20 H 20 H Blood Pressure 145/71 H 156/89 H 157/109 H Blood Pressure Mean 95 111 125 Pulse Ox 97 97 85 Oxygen Delivery Method Room Air Room Air Room Air Oxygen Flow Rate (L/min) 11/07/23 14:27 11/07/23 14:38 11/07/23 15:21 Temperature 98 F Temperature Source Pulse Rate 120 H Respiratory Rate 29 H Blood Pressure 165/94 H Blood Pressure Mean 117 Pulse Ox 90 92 91 Oxygen Delivery Method Nasal Cannula Nasal Cannula Oxygen Flow Rate (L/min) 2 4 11/07/23 15:21 Temperature 98 F Temperature Source Oral Pulse Rate 122 H Respiratory Rate 22 H Blood Pressure 165/94 H Blood Pressure Mean 117 Pulse Ox 90 Oxygen Delivery Method Nasal Cannula Oxygen Flow Rate (L/min) 4 Weight Weight: 177 lb 11.081 oz Body Mass Index (BMI) 30.4 Physical Exam Narrative General: Alert, Oriented x3, Cooperative. Fatigue HEENT: Atraumatic, PERRLA, EOMI, Normocephalic Oral: Oral mucosa moist. No Gingival or Mucosal Lesions/ Ulcerations Neck: No neck tenderness. Supple, No JVD, Negative Carotid Bruits Chest wall/Lungs: Air entry diminished in bilateral lung bases. No crepitation/rhonchi Cardiovascular: Sinus tachycardia, normal S1, Normal S2, No M/G/R Abdomen: Bowel Sounds Present, Soft, Non Tender, Non-Distended : No dysuria. No renal angle tenderness. No suprapubic tenderness. Extremities: No pitting edema, Capillary Refill Less than 3 Seconds Skin: No rashes, No breakdown Musculoskeletal: No Tenderness to Palpation of Joints or Extremities Neurological: Cranial nerves II-XII grossly intact, DTR 2+/4. No acute focal neurological deficit. Psych/Mental Status: Flat affect. Chronic depression on antipsychotic medications. Results Lab / Micro Data 11/07/23 14:35 11/07/23 14:35 Labs: Laboratory Results - last 24 hr 11/07/23 14:34: D-Dimer Quant (PE/DVT) 0.34 11/07/23 14:35: WBC 18.9 H, RBC 4.48, Hgb 14.0, Hct 41.9, MCV 93.5, MCH 31.3, MCHC 33.4, RDW Std Deviation 46.1 H, RDW Coeff of Joseph 13.5, Plt Count 237, MPV 10.0, Immature Gran % (Auto) 0.500, Neut % (Auto) 86.8 H, Lymph % (Auto) 7.7 L, [place] % (Auto) 4.6, Eos % (Auto) 0.2, Baso % (Auto) 0.2, Absolute Neuts (auto) 16.5 H, Absolute Lymphs (auto) 1.45, Nucleated RBC % 0, Sodium 144, Potassium 3.7, Chloride 114 H, Carbon Dioxide 20.0 L, Anion Gap 10, BUN 11, Creatinine 1.20 H, Estim Creat Clear Calc 55.04, Est GFR (MDRD) Af Amer 60, Est GFR (MDRD) Non-Af 50 L, BUN/Creatinine Ratio 9.2 L, Glucose 163 H, Calcium 8.4 L, Total Bilirubin 0.60, AST 20, ALT 17, Alkaline Phosphatase 88, Troponin I High Sens 623 H*, Total Protein 6.5, Albumin 3.3, Globulin 3.2, Albumin/Globulin Ratio 1.0, Lipase 10 L Rhythm Strip Rhythm Strip: Sinus Tach Rate: 113 Ectopy: None Imaging Radiology Impression Brain CT 11/07/23 12:45 IMPRESSION: Sinusitis. Electronically Signed: Chico Renteria MD at 13:27 EDT , Chest X-Ray 11/07/23 14:25 IMPRESSION: Increased interstitial pattern suggestive of CHF. Electronically Signed: Chico Renteria MD at 14:45 EDT , Assessment & Plan Assessment/Plan (1) Non-ST elevated myocardial infarction: (2) Headache: PLAN: Plan This is 53-year-old female being admitted for non-STEMI. 1. Chronic dyspnea on exertion with chest pain, nonischemic: Patient is being admitted in PCU. First troponin 623. EKG shows T wave inversion V3 to V6, 1 and aVL change from the previous EKG of December 2019. Cycle cardiac enzymes. Patient started on baby aspirin and enoxaparin 1 mg/kg body weight. [employer] consulted. Might need cardiac cath tomorrow AM. 2D echo is ordered. Patient has listed aspirin as allergy for side effect of vomiting. No true allergy therefore started on baby aspirin . 2. Acute headache with history of chronic migraine headache: Headache is better. Continue Tylenol 1 g every 8 hourly. At home, patient on hydroxyzine 100 mg nightly. Not on acute migraine headache pill or migraine prophylaxis medication. 3. History of chronic ulcerative colitis: Patient is states she follows outside GI doctor and has history of ulcerative colitis. Denies acute symptoms of abdominal pain, diarrhea or dysentery/hematochezia. Patient not on specific ulcerative colitis medication. 4. COPD: Patient on albuterol inhaler at home. Former smoker. Chest x-ray shows increased interstitial pattern/marking. Officially reported pattern of CHF pattern but clinically patient not short of breath at rest, JVD or lung crepitation. BNP ordered. The patient does not have diagnosis of CHF as past medical history 5. Hypertension: Systolic blood pressure elevated in 150s to 165. Patient on losartan 100 mg daily continued. 6. Dyslipidemia: On atorvastatin 40 mg nightly. Fasting lipid profile ordered for tomorrow AM. 7. Anxiety and depression: Patient on sertraline, ziprasidone and hydroxyzine 100 mg nightly at home. Hold hydroxyzine. Continue sertraline and ziprasidone 8. DVT prophylaxis: On therapeutic dose of Lovenox for non-STEMI. Living will/advanced directive/end of life care: Patient does not have living will or advanced directive. Does not have degrade power of commercial litigation attorney for health although she has son. After discussion of benefits/risks procedures involved with full code, DNR CC arrest and DNR CC, the patient opted for full code. Patient does want artificial life support including intubation, tube feed, ventilator and/chest compression, central venous catheter, vasopressor and DC shock if needed Total time spent in [id number] encounter in discussion of advanced directive 17 minutes. Laboratory Results 11/07/23 14:34: D-Dimer Quant (PE/DVT) 0.34 11/07/23 14:35: WBC 18.9 H, RBC 4.48, Hgb 14.0, Hct 41.9, MCV 93.5, MCH 31.3, MCHC 33.4, RDW Std Deviation 46.1 H, RDW Coeff of Joseph 13.5, Plt Count 237, MPV 10.0, Immature Gran % (Auto) 0.500, Neut % (Auto) 86.8 H, Lymph % (Auto) 7.7 L, [place] % (Auto) 4.6, Eos % (Auto) 0.2, Baso % (Auto) 0.2, Absolute Neuts (auto) 16.5 H, Absolute Lymphs (auto) 1.45, Nucleated RBC % 0, Sodium 144, Potassium 3.7, Chloride 114 H, Carbon Dioxide 20.0 L, Anion Gap 10, BUN 11, Creatinine 1.20 H, Estim Creat Clear Calc 55.04, Est GFR (MDRD) Af Amer 60, Est GFR (MDRD) Non-Af 50 L, BUN/Creatinine Ratio 9.2 L, Glucose 163 H, Calcium 8.4 L, Total Bilirubin 0.60, AST 20, ALT 17, Alkaline Phosphatase 88, Troponin I High Sens 623 H*, Total Protein 6.5, Albumin 3.3, Globulin 3.2, Albumin/Globulin Ratio 1.0, Lipase 10 L 11/07/23 16:00: Magnesium 1.7 Clinical Impression(s) from Imaging Studies Brain CT 11/07/23 12:45 IMPRESSION: Sinusitis. Chest X-Ray 11/07/23 14:25 IMPRESSION: Increased interstitial pattern suggestive of CHF. Electronically Signed: Chico Renteria MD at 14:45 EDT , Charges/Coding Visit Charges Inpatient E&M: 05670 Init Hosp L3 Procedures Hospitalists Procedures: 64722 Advncd Care Plan 30 Min
--- NOTE | 2023-11-07 15:49 | NURSING ---
PCU SHI EXERTIONAL DYSPNEA, ELEVATED TROP, CHEST PAIN
--- NOTE | 2023-11-07 16:37 | EKG12_ITS ---
Test Reason : TACHY Blood Pressure : / mmHG Vent. Rate : 160 BPM Atrial Rate : 000 BPM P-R Int : 000 ms QRS Dur : 110 ms QT Int : 282 ms P-R-T Axes : 000 -25 114 degrees QTc Int : 460 ms Critical Test Result: High HR Supraventricular tachycardia Incomplete left bundle branch block Minimal voltage criteria for LVH, may be normal variant ( Romaine product ) ST & T wave abnormality, consider lateral ischemia Abnormal ECG No previous ECGs available Confirmed by LARRY FRANCO, YVROSE ([id number]), medical transcription editor MARYBETH GALICIA ([id number]) on 11/09/2023 8:28:15 AM Referred By: Confirmed By:YVROSE JUAREZ MD
--- NOTE | 2023-11-07 16:37 | ECHOCS_ITS ---
Reason For Study: NSTEMI Procedure This was a 2D Doppler, Color Flow transthoracic echocardiogram. Contrast injection was performed. Patient was on Bipap during exam. Exam performed portable in ICU/CCU. Left Ventricle Normal LV size. The left ventricular ejection fraction is 20 %. Stage 2 diastolic dysfunction. There is severe global hypokinesis of the left ventricle. Posterior-Basal: Normal. Lateral-Basal: Normal. Anterio-Basal: Normal. Right Ventricle Normal RV size. Normal systolic function. Atria Normal left atrium. Normal right atrium. Mitral Valve Normal mitral valve. Mild (1+) eccentric mitral valve insufficiency. Tricuspid Valve Normal tricuspid valve. Mild tricuspid valve insufficiency. Pulmonary artery systolic pressure is 40 mmHg. Aortic Valve Normal aortic valve. Mild-Moderate (1-2+) eccentric aortic valve insufficiency. Medication Diluted definity 4ml given slow IV push to enhance endocardial definition. MMode/2D Measurements & Calculations LVIDd: 5.3 cm IVSd: 1.0 cm LVOT diam: 1.9 cm LVIDs: 3.9 cm LVPWd: 0.82 cm LVOT area: 2.7 cm2 RVDd: 2.6 cm FS: 26.6 % Ao root diam: 2.9 cm LAV(MOD-bp): 29.1 ml LVAd ap4: 36.3 cm2 LAV(MOD-bp) Indexed: 15.5 ml/m2 LVLd ap4: 8.2 cm LAV(MOD-sp2): 40.0 ml EDV(MOD-sp4): 131.9 ml LAV(MOD-sp4): 18.6 ml EDV(sp4-el): 135.5 ml LVAs ap4: 26.0 cm2 LVLs ap4: 7.6 cm ESV(MOD-sp4): 73.2 ml ESV(sp4-el): 76.2 ml EF(MOD-sp4): 44.5 % EF(sp4-el): 43.8 % SV(MOD-sp4): 58.7 ml SV(MOD-sp2): 36.4 ml LVAd ap2: 33.7 cm2 LVLd ap2: 8.4 cm EDV(MOD-sp2): 109.4 ml EDV(sp2-el): 115.5 ml LVAs ap2: 26.4 cm2 LVLs ap2: 7.8 cm ESV(MOD-sp2): 73.1 ml ESV(sp2-el): 75.6 ml EF(MOD-sp2): 33.2 % SV(sp4-el): 59.3 ml LA A4 area: 10.4 cm2 LA dimension(2D): 4.0 cm TAPSE: 1.7 cm RA A4 area: 6.2 cm2 Time Measurements MV dec time: 0.14 sec Doppler Measurements & Calculations MV E max andrey: 106.0 cm/sec Lat Peak E' Andrey: 7.3 cm/sec Med Peak E' Andrey: 5.9 cm/sec MV A max andrey: 51.9 cm/sec E/E' lat: 14.5 E/E' med: 18.1 MV E/A: 2.0 MV dec slope: 740.9 cm/sec2 Ao V2 max: 156.2 cm/sec AI max andrey: 444.1 cm/sec Ao max P.8 mmHg AI max P.9 mmHg Ao V2 mean: 108.3 cm/sec AI dec slope: 494.2 cm/sec2 Ao mean P.4 mmHg AI P1/2t: 263.2 msec Ao V2 VTI: 30.6 cm AV (velocity ratio): 0.88 HEIDY(I,D): 2.4 cm2 HEIDY(V,D): 2.3 cm2 LV V1 max: 133.2 cm/sec SV(LVOT): 72.6 ml PA V2 max: 78.4 cm/sec LV V1 max P.1 mmHg PA max PG (full): 1.3 mmHg LV V1 mean P.5 mmHg LV V1 mean: 85.2 cm/sec LV V1 VTI: 27.0 cm TR max andrey: 301.2 cm/sec TR max P.3 mmHg ECHO/Echo Complete W/ Contrast Interpretation Summary Normal LV size. The left ventricular ejection fraction is 20 %. Mild (1+) eccentric mitral valve insufficiency. Stage 2 diastolic dysfunction. Pulmonary artery systolic pressure is 40 mmHg. Severe hypokinesis of the anterior wall apex and mid inferior and inferior apic al wall. The above is consistent with a Takotsubo cardiomyopathy. Contrast injection was performed. Ordering Physician: Leonard Rebollar Performed By: Sandra Hoang RDCS
[2023-11-07 16:42] LABS: Magnesium 1.7 mg/dL (1.6-2.6)
[2023-11-07] MEDS: 0.9% Normal Saline (1000mL) 1,000 ML 75 ML IV (16:59)
[2023-11-07] MEDS: 0.9% Saline Lock 10 ML Syringe IV ×2 (16:59→21:37)
[2023-11-07] MEDS: Enoxaparin 80 MG/0.8 ML Syringe SC (17:13)
[2023-11-07] MEDS: Metoprolol Tartrate 25 MG Tablet PO (17:13)
[2023-11-07] MEDS: Pantoprazole Sodium 40 MG Tablet PO (17:13)
[2023-11-07] MEDS: Acetaminophen 500 MG Tablet 1000 MG PO (17:14)
[2023-11-07] MEDS: Aspirin E.C. 81 MG Tablet PO (17:14)
[2023-11-07 17:41] LABS: Troponin-I HS 620 pg/mL (3.0-54.0)
[2023-11-07] MEDS: Adenosine 6 MG/2 ML Syringe IV (18:08)
[2023-11-07] MEDS: Adenosine 6 MG/2 ML Syringe 12 MG IV (18:10)
[2023-11-07] MEDS: Metoprolol Tartrate 5 MG/5 ML Vial IV (18:12)
--- NOTE | 2023-11-07 18:18 | CT_ITS ---
STUDY: CTA CHEST REASON FOR EXAM: Female, 53 years old. dyspnea, hypoxia, tachycardia. RADIATION DOSAGE (If Supplied By Facility): CTDIvol = ( 16.88 ) mGy, DLP = ( 533.78 ) mGycm TECHNIQUE: The examination was performed with the intravenous administration of IV 100mL Isovue-370. Post-processing of the angiographic images was performed, with multiplanar reformation and 3D reconstruction. Individualized dose optimization techniques were used for this CT. COMPARISON: None. FINDINGS: Normal enhancement of the main pulmonary artery and right and left pulmonary arteries. Normal enhancement of the bilateral peripheral pulmonary arteries. There is no demonstrated pulmonary embolism. Minor atherosclerotic changes of the aorta without evidence for aneurysm There is no demonstrated aortic dissection. Heart size is normal however there is minimal coronary artery calcification. Normal mediastinum. Normal hilar regions. Normal visualized trachea and bronchi. The lungs are well expanded. There is diffuse interstitial thickening and emphysematous changes throughout both lungs.. There are multiple patchy and confluent areas of groundglass opacity more pronounced in the lower lobes which may represent coexisting inflammatory changes or pulmonary interstitial edema. There are also moderate-sized bilateral pleural effusions with consolidation of the lower lobes more severe on the left. Normal chest wall structures. Dorsal spine demonstrates degenerative change. Postsurgical changes are seen at the gastroesophageal junction Normal visualized upper abdomen. CT/CTA Chest W/WO Contrast IMPRESSION: COPD with superimposed mild ASHD and possible pulmonary interstitial edema more pronounced in the lower lobes with associated pleural effusions and bibasilar consolidation more severe on the left. Cannot exclude coexisting pneumonia No evidence for pulmonary embolus Electronically Signed: Jose Alberto Pennington MD at 22:00 EDT ,
--- NOTE | 2023-11-07 18:27 | PCM.CONS.C ---
Assessment & Plan Assessment/Plan (1) Elevated troponin: PLAN: Patient presents with noncardiac related complaints, complaints of chest discomfort eventually and then has an abnormal cardiac enzyme. The pattern does not have a rise and fall at this particular time and is not suggestive of a non-ST elevation myocardial infarction but is secondary to the elevated troponin level. I would recommend we obtain an echocardiogram to assess ventricular function in a.m. before deciding on any further testing. (2) SVT (supraventricular tachycardia): PLAN: She did have evidence of a narrow complex tachycardia. It does not appear that this was an AVNRT. I would like us to exclude a pulmonary embolism by obtaining a CT scan with contrast of her chest. Beta-blockers can be started Continue Lovenox for now Will recommend replacing magnesium It is possible that she was having intermittent supraventricular tachyarrhythmia which led to the elevation of the cardiac enzymes. I agree with observing further in the intensive care unit. HPI Consult Data Date of Consult: 11/07/23 HPI Narrative HPI Narrative: RAYMON HAAS, is a 53 F who presents initially to the emergency room complaining of headache. She apparently has a history of chronic migraine headaches for which she follows with a neurologist. She complained of this as well as blurry vision and vomited twice in the emergency room. As part of the evaluation she underwent a head CT scan which did not demonstrate any significant abnormalities. Parenthetically she did complain of some chest discomfort described as a chest pressure radiation to her left scapula. It lasted about an hour. On the basis of this she underwent evaluation with a troponin level which was noted to be elevated. An EKG demonstrated sinus tachycardia with anterior T wave inversions. An incomplete right bundle branch block was also noted. She was admitted to the telemetry care unit cardiology was called for further evaluation and management. Prior to my seeing her she apparently went into a tachycardia with rates up to 200 bpm she was given 6 and 12 of adenosine with no significant change. By the time I got there she was being given 5 mg of metoprolol and her heart rate was down to the 150s. She apparently went into this rhythm while she was in the bathroom. She had been given p.o. metoprolol as well as Lovenox on admission. At this particular time she appears to be not focused and with multiple complaints. Arrangements are being made to transfer her to the intensive care unit. EKG which I reviewed demonstrated a narrow complex tachycardia with T wave inversions noted anteriorly. [facility] Medical History Bipolar disorder Anxiety Depression Osteoarthritis Kidney stones Hx of gastroesophageal reflux (GERD) Smoker BiPAP (biphasic positive airway pressure) dependence Asthma Myocardial infarct Chest pain Stroke/cerebrovascular accident Migraines Seizures Ulcerative colitis Hypertension COPD (chronic obstructive pulmonary disease) Home Medications ?Medication ?Instructions ?Recorded ?Last Taken ?Type albuterol sulfate 90 mcg/actuation 2 puff inhalation Q6H PRN COPD 02/02/19 11/06/23 History aerosol inhaler ziprasidone HCl 40 mg capsule 40 mg PO DAILY 04/21/20 11/06/23 History atorvastatin 40 mg tablet 40 mg PO QHS 11/07/23 Unknown History hydroxyzine pamoate 100 mg capsule 100 mg PO BID Anxiety 11/07/23 11/06/23 History losartan 100 mg tablet 100 mg PO DAILY 11/07/23 11/06/23 History omeprazole 40 mg capsule,delayed 40 mg PO DAILY 11/07/23 11/06/23 History release sertraline 50 mg tablet 50 mg PO DAILY 11/07/23 11/06/23 History ziprasidone HCl 80 mg capsule 80 mg PO QHS 11/07/23 11/06/23 History Allergy/AdvReac Type Severity Reaction Status Date / Time meperidine (From Demerol) Allergy Other Verified 11/07/23 12:19 metronidazole (From Flagyl) Allergy Hives Verified 11/07/23 12:19 oxycodone (From Percocet) Allergy Hives Verified 11/07/23 12:19 Penicillins Allergy Hives Verified 11/07/23 12:19 aspirin AdvReac Vomiting Verified 11/07/23 12:19 Surgical History Hx of hysterectomy History of appendectomy Social History Smoking Status: Former smoker ROS Constitutional Constitutional: Denies fever(s) or weight loss Eyes Eyes: Reports systems reviewed and no addt'l complaints, except as documented ENT HEENT: Reports systems reviewed and no addt'l complaints, except as documented Cardiovascular Cardiovascular: Reports chest pain at rest and dyspnea at rest; Denies chest pain with activity, dyspnea on exertion, edema, palpitations or paroxysmal nocturnal dyspnea Respiratory/Chest Respiratory/Chest: Denies dyspnea on exertion, productive cough, shortness of breath at rest or shortness of breath with exertion Gastrointestinal Gastrointestinal: Denies change in bowel habits, nausea, vomiting or weight changes Genitourinary Genitourinary: Denies difficulty urinating Musculoskeletal Musculoskeletal: Denies joint stiffness or muscle weakness Integumentary Integumentary: Denies lesions Neurologic Neurologic: Reports dizziness and headache(s); Denies syncope Psychiatric Psychiatric: Denies anxiety Endocrine Endocrinology: Denies excessive sweating or fatigue Hematologic/Lymphatic Hematologic/Lymphatic: Denies anemia Allergic/Immunologic Allergic/Immunologic: Denies seasonal rhinorrhea Physical Exam Const alert, oriented x3 and no apparent distress General Appearance: cooperative HEENT hearing grossly normal bilaterally Head and Scalp: atraumatic Eyes EOMs intact bilaterally Neck General: normal visual inspection Chest inspection of chest normal and palpation of chest normal Resp normal respiratory effort Auscultation: clear to auscultation bilaterally Cardio regular rate, regular rhythm, S1 normal heart sound and S2 normal heart sound Jugular Venous Distention: JVD GI normal to inspection, nondistended, normoactive bowel sounds Extremity normal capillary refill and no pedal edema Peripheral Pulses: Yes pulses 2+ throughout and femoral pulses present Skin no rashes or lesions noted Neuro oriented x3 and CN's II-XII intact bilaterally Psych Appearance: grossly normal and appropriate Risk Stratification Risk Stratification Applicable: Yes Age >/= 65: No >/= 3 CAD Risk Factors (HTN, HLD, DM, family hx of CAD, or current smoker): No Aspirin Use in the Past 7 Days: No Severe Angina (>/= episodes in 24 hours): No EKG ST Changes >/= 0.5mm: No Positive Cardiac Marker: Yes KAYKAY Risk Stratification Score: 1 KAYKAY % Risk: 5% Risk Objective Data Vital Signs: Vital Signs Temp Pulse Resp BP Pulse Ox O2 Del Method O2 Flow Rate 97.5 F L 116 H 18 143/86 H 92 Nasal Cannula 5 11/07/23 17:00 11/07/23 17:13 11/07/23 17:00 11/07/23 17:13 11/07/23 17:00 11/07/23 17:08 11/07/23 17:08 Oxygen Flow Rate (L/min) 5 Oxygen Delivery Method Nasal Cannula Weight: 179 lb 3.773 oz Body Mass Index (BMI) 30.7 Intake & Output: Intake and Output for Last 24 Hours 11/05/23 11/06/23 11/07/23 23:59 23:59 23:59 Intake Total 1000 / 1000 Balance 1000 / 1000 Lab / Micro Data 11/07/23 14:35 11/07/23 14:35 Labs: Laboratory Results - last 24 hr 11/07/23 14:34: D-Dimer Quant (PE/DVT) 0.34 11/07/23 14:35: WBC 18.9 H, RBC 4.48, Hgb 14.0, Hct 41.9, MCV 93.5, MCH 31.3, MCHC 33.4, RDW Std Deviation 46.1 H, RDW Coeff of Joseph 13.5, Plt Count 237, MPV 10.0, Immature Gran % (Auto) 0.500, Neut % (Auto) 86.8 H, Lymph % (Auto) 7.7 L, [place] % (Auto) 4.6, Eos % (Auto) 0.2, Baso % (Auto) 0.2, Absolute Neuts (auto) 16.5 H, Absolute Lymphs (auto) 1.45, Nucleated RBC % 0, Sodium 144, Potassium 3.7, Chloride 114 H, Carbon Dioxide 20.0 L, Anion Gap 10, BUN 11, Creatinine 1.20 H, Estim Creat Clear Calc 55.04, Est GFR (MDRD) Af Amer 60, Est GFR (MDRD) Non-Af 50 L, BUN/Creatinine Ratio 9.2 L, Glucose 163 H, Calcium 8.4 L, Total Bilirubin 0.60, AST 20, ALT 17, Alkaline Phosphatase 88, Troponin I High Sens 623 H*, Total Protein 6.5, Albumin 3.3, Globulin 3.2, Albumin/Globulin Ratio 1.0, Lipase 10 L 11/07/23 16:00: Magnesium 1.7, Troponin I High Sens 620 H* Rhythm Strip Rhythm Strip: Sinus Tach Rate: 113 Ectopy: None Cardiology Labs/Tests 11/07/23 14:34: D-Dimer Quant (PE/DVT) 0.34 11/07/23 14:35: WBC 18.9 H, RBC 4.48, Hgb 14.0, Hct 41.9, MCV 93.5, MCH 31.3, MCHC 33.4, Plt Count 237, MPV 10.0, Immature Gran % (Auto) 0.500, Neut % (Auto) 86.8 H, Lymph % (Auto) 7.7 L, [place] % (Auto) 4.6, Eos % (Auto) 0.2, Baso % (Auto) 0.2, Absolute Neuts (auto) 16.5 H, Nucleated RBC % 0, Sodium 144, Potassium 3.7, Chloride 114 H, Carbon Dioxide 20.0 L, Anion Gap 10, BUN 11, Creatinine 1.20 H, Est GFR (MDRD) Af Amer 60, Est GFR (MDRD) Non-Af 50 L, BUN/Creatinine Ratio 9.2 L, Glucose 163 H, Calcium 8.4 L, Total Bilirubin 0.60 11/07/23 16:00: Magnesium 1.7 Rhythm: EKG: ECHO: Stress Test: Cardiac Cath: PCI: CT Surgery: Holter monitor: EPS: PPM: CXR: Chest CT Scan: Radiography Diagnostic Testing: Radiology Impression Brain CT 11/07/23 12:45 IMPRESSION: Sinusitis. Electronically Signed: Chico Renteria MD at 13:27 EDT , Chest X-Ray 11/07/23 14:25 IMPRESSION: Increased interstitial pattern suggestive of CHF. Electronically Signed: Chico Renteria MD at 14:45 EDT ,
--- NOTE | 2023-11-07 18:37 | PN.HOSP_ITS ---
Hospitalist Note Rapid response note rapid response was called because patient heart rate went up to 100/min, respiratory rate 30 to 35/min shortness of breath. This happened while patient was in the bathroom Patient was put on the BiPAP. 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 Adenosine 6 mg followed by 12 mg IV was given. Her heart rate slowed down to about 150s and then metoprolol 5 mg IV was given. Heart rate further slow down to 120/min. Blood pressure also high 155/121, 172/55 and then last was 120/86. Patient also has history of bipolar disorder and gets panic with the BiPAP. For transient time, patient was taken off BiPAP but started getting hypoxic and turning blue therefore put back on BiPAP. Ativan 0.5 mg IV 1 dose ordered. Repeat EKG which was done shows PSVT. He does not show S1Q3T3 pattern and D- dimer was negative. Lovenox 1 mg/kg every 12 hourly already ordered patient got the first dose. CTPA ordered and patient is hemodynamically stable but now transferred to ICU. Lungs: Air entry diminished bilaterally. Patient has history of COPD. Still tachypneic and hypoxic and on BiPAP Heart: S1-S2 tachycardia Legs 1+ pitting edema on pressing on pretibial region Discussed with the rod cup filler. Metoprolol dose increased to 50 mg twice daily. Director [place] already consulted. 2D echo is ordered Procedures Hospitalists Procedures: [id number] Critical Care 1st Hr
[2023-11-07] MEDS: LORazepam 2 MG/ML Syringe 0.5 MG IV (18:41)
--- NOTE | 2023-11-07 18:50 | CPS ---
Decreased FIO2 to 35% and reduced IPAP to 14 cmH2O for pt comfort.
[2023-11-07] MEDS: Magnesium Sulfate 2 GM in Dextrose 5%-Water (100mL Bag) 100 ML IV (18:55)
[2023-11-07 21:15] LABS: BNP,B-Type NATRIURETIC PEPTIDE 1511.9 pg/mL (0-100)
[2023-11-07 21:31] LABS: Troponin-I HS 1091 pg/mL (3.0-54.0)
[2023-11-07] MEDS: Albumin Human 25% (100 mL) 25 GM/100 ML BAG IV (22:15)
[2023-11-07] MEDS: Furosemide 40 MG/4 ML Vial IV (23:13)
[2023-11-07] MEDS: Albuterol 2.5 MG/3 ML VIAL.NEB. INHALATION (23:25)
[2023-11-08] VITALS (34 sets, daily range): BP systolic 82–134; BP diastolic 49–91; PULSE 59–91; RESP 12–35; TEMP 36.1–36.8; O2SAT 77–97; BMI 31.4
[2023-11-08] MEDS: Acetaminophen 500 MG Tablet 1000 MG PO ×3 (00:05→20:10)
[2023-11-08] MEDS: hydrOXYzine PAM 25 MG Capsule 50 MG PO ×3 (00:05→20:06)
[2023-11-08] MEDS: Atorvastatin Calcium 40 MG Tablet PO ×2 (00:05→20:07)
[2023-11-08] MEDS: Ziprasidone HCl 20 MG Capsule 80 MG PO ×2 (00:06→20:07)
[2023-11-08] MEDS: Albuterol 2.5 MG/3 ML VIAL.NEB. INHALATION (03:15)
[2023-11-08 06:37] LABS: Absolute Lymphocyte Count 2.78 X10^3/uL (0.83-4.51); Absolute Neutrophil Count 18.2 X10^3/uL (2.0-7.7); Basophil# 0.03 X10^3/uL; Basophil% 0.1 % (0-1); Hematocrit 42.9 % (37-47); Hemoglobin 14.3 g/dL (12.0-15.0); Lymphocyte # 2.78 X10^3/ul (0.83-4.51); Lymphocyte % 12.5 % (19-41); Mean Corp Hgb Conc 33.3 g/dL (32-36); Mean Corpuscular Volume 93.1 fL (81-99); Mean Platelet Vol. 10.7 fl (6.2-12.0); Monocyte# 1.13 X10^3/uL; Monocyte% 5.1 % (0-10); NRBC Flagged by Analyzer 0 % (0-5); Neutrophil # 18.23 X10^3/uL (2.7-7.7); Neutrophil % 81.8 % (47-70); Platelet Count 218 K/mm3 (150-450); RBC Distribution Width CV 13.7 % (11.6-14.6); RBC Distribution Width SD 46.9 fl (35.1-43.9); Red Blood Count 4.61 M/mm3 (4.2-5.4); White Blood Count 22.3 K/mm3 (4.4-11.0)
[2023-11-08 07:33] LABS: Anion Gap 6 (5-15); BUN 20 mg/dL (7-18); BUN/Creat Ratio 10.9 RATIO (10-20); Calcium,Total 8.4 mg/dL (8.5-10.1); Chloride 111 mmol/L (98-107); Cholesterol 128 mg/dL (200); Creatinine, Serum 1.83 mg/dL (0.55-1.02); EST Glomerular Filtration Rate 31 mL/min (>60); Est Glom Filt Rate - Afr Amer 37 mL/min (>60); Estimated Creatinine Clearance 36.63 ml/min; Glucose 124 mg/dL (74-106); High Density Lipoprotein 48 mg/dL; Potassium 4.2 mmol/L (3.5-5.1); Sodium Level 137 mmol/L (136-145); Triglycerides 162 mg/dL; Very Low Density Lipoprotein 32 mg/dL (5-40)
[2023-11-08 07:43] LABS: Allen Test Positive; Base Excess -8 mmol/L (-2 to +2); Bicarbonate 17.3 mmol/L (22-26); Blood Gas Specimen Type ART; Comment 14 8 12 65; O2 Delivery Device BiPAP; PEEP 8; PO2 64 mmHG (75-100); RR 12; SITE R Radial; SO2 92 % (95-99); Total Carbon Dioxide 18 mmol/L; pCO2 30.9 mmHg (35-45); pH 7.36 (7.35-7.45)
[2023-11-08] MEDS: 0.9% Saline Lock 10 ML Syringe IV ×3 (08:28→20:11)
[2023-11-08] MEDS: Furosemide 40 MG/4 ML Vial IV ×2 (08:28→18:15)
--- NOTE | 2023-11-08 08:56 | EX.PCM.CONCC ---
Assessment & Plan Assessment/Plan (1) Acute hypoxemic respiratory failure: PLAN: Plan RECOMMENDATIONS: 1. Okay to wean from BiPAP to nasal cannula supplemental oxygen to maintain saturations at or above 90%. 2. Ongoing diuresis as tolerated by hemodynamics and renal function. 3. Medical management of SVT per cardiology. 4. Start scheduled Atrovent aerosols. 5. Encourage incentive spirometer use and mobilize patient as tolerated. IMPRESSIONS: 1. Acute hypoxemic respiratory failure Appears secondary to acute decompensated heart failure. The patient was subsequently placed on BiPAP and scheduled to receive diuretic therapy. Cardiology is currently following. Ejection fraction has preliminarily been estimated to be approximately 15%. Therefore, the patient will likely require an ischemic evaluation at some point during this hospitalization. In the interim, the patient will be weaned from PAP therapy to nasal cannula oxygen, as tolerated, to maintain saturations at or above 90%. She will be placed on scheduled Atrovent aerosols as well, in light of her self-reported history of COPD. 2. Elevated troponin/SVT Medical management per cardiology. The patient will be continued on beta-blockers. 3. History of tobacco dependency, in remission/hypertension/hyperlipidemia/anxiety/depression Complicates care, management, recovery and prognosis. Continue home medications as indicated. This note was generated with [employer] dictation software. It may contain incorrect words, spelling, and punctuation that were not noted in checking the note before signing. HPI Consult Data Date of Consult: 11/08/23 HPI Narrative Reason for Consultation: Respiratory failure HPI Narrative: The patient is a 53-year-old female, with a history as outlined below, who presented to the emergency department on November 06 with complaints of a headache. The patient has a self-reported history of COPD and apparently follows with a staffing administrator in [place]. She does not utilize supplemental oxygen at her baseline. She no longer smokes cigarettes daily. In addition to her presenting headache, the patient did note shortness of breath with exertion as well. On presentation to the emergency department, the patient was noted to be afebrile and hemodynamically stable. She was documented to be tachycardic and tachypneic and was initially saturating 85% on room air. Laboratory evaluation revealed a white blood cell count of 19,000. Chemistry profile was notable for a bicarbonate of 20 and creatinine of 1.2. Troponin was elevated at 623 with a BNP of 1511. Head CT revealed evidence of mucosal thickening of the maxillary sinuses bilaterally. Chest imaging demonstrated stigmata of congestive heart failure. A rapid response team was called on the evening of November 06 after the patient developed SVT. The patient was administered adenosine, which was then followed by metoprolol. She was subsequently placed on BiPAP therapy. CTA chest showed no evidence for pulmonary embolism. However, there was evidence of interstitial edema with pleural effusions and basilar consolidation. [facility] Medical History Bipolar disorder Anxiety Depression Osteoarthritis Kidney stones Hx of gastroesophageal reflux (GERD) Smoker BiPAP (biphasic positive airway pressure) dependence Asthma Myocardial infarct Chest pain Stroke/cerebrovascular accident Migraines Seizures Ulcerative colitis Hypertension COPD (chronic obstructive pulmonary disease) Home Medications ?Medication ?Instructions ?Recorded ?Last Taken ?Type albuterol sulfate 90 mcg/actuation 2 puff inhalation Q6H PRN COPD 02/02/19 11/06/23 History aerosol inhaler ziprasidone HCl 40 mg capsule 40 mg PO DAILY 04/21/20 11/06/23 History atorvastatin 40 mg tablet 40 mg PO QHS 11/07/23 Unknown History hydroxyzine pamoate 100 mg capsule 100 mg PO BID Anxiety 11/07/23 11/06/23 History losartan 100 mg tablet 100 mg PO DAILY 11/07/23 11/06/23 History omeprazole 40 mg capsule,delayed 40 mg PO DAILY 11/07/23 11/06/23 History release sertraline 50 mg tablet 50 mg PO DAILY 11/07/23 11/06/23 History ziprasidone HCl 80 mg capsule 80 mg PO QHS 11/07/23 11/06/23 History Allergy/AdvReac Type Severity Reaction Status Date / Time meperidine (From Demerol) Allergy Other Verified 11/07/23 12:19 metronidazole (From Flagyl) Allergy Hives Verified 11/07/23 12:19 oxycodone (From Percocet) Allergy Hives Verified 11/07/23 12:19 Penicillins Allergy Hives Verified 11/07/23 12:19 aspirin AdvReac Vomiting Verified 11/07/23 12:19 Surgical History Hx of hysterectomy History of appendectomy Social History Smoking Status: Former smoker ROS ROS Narrative 10 systems were reviewed with pertinent positives as noted in the HPI above. Physical Exam Const alert and no apparent distress Constitutional Narrative: No longer on BiPAP therapy. General Appearance: cooperative HEENT normocephalic and head/scalp atraumatic Eyes PERRL, EOMs intact bilaterally and conjunctivae normal Neck supple General: trachea midline Chest inspection of chest normal Resp normal respiratory effort Auscultation: rales, wheezes and diminished lung sounds Cardio S1 normal heart sound and S2 normal heart sound Rate: tachycardic GI normal to inspection, nondistended, normoactive bowel sounds Extremity no clubbing, cyanosis or edema Skin no rashes or lesions noted Neuro CN's II-XII intact bilaterally, moves all extremities and no focal motor deficits Psych cooperative and affect normal Lab / Micro Data 11/08/23 06:28 11/08/23 06:28 Labs: Laboratory Results - last 24 hr 11/07/23 14:34: D-Dimer Quant (PE/DVT) 0.34 11/07/23 14:35: WBC 18.9 H, RBC 4.48, Hgb 14.0, Hct 41.9, MCV 93.5, MCH 31.3, MCHC 33.4, RDW Std Deviation 46.1 H, RDW Coeff of Joseph 13.5, Plt Count 237, MPV 10.0, Immature Gran % (Auto) 0.500, Neut % (Auto) 86.8 H, Lymph % (Auto) 7.7 L, [place] % (Auto) 4.6, Eos % (Auto) 0.2, Baso % (Auto) 0.2, Absolute Neuts (auto) 16.5 H, Absolute Lymphs (auto) 1.45, Nucleated RBC % 0, Sodium 144, Potassium 3.7, Chloride 114 H, Carbon Dioxide 20.0 L, Anion Gap 10, BUN 11, Creatinine 1.20 H, Estim Creat Clear Calc 55.04, Est GFR (MDRD) Af Amer 60, Est GFR (MDRD) Non-Af 50 L, BUN/Creatinine Ratio 9.2 L, Glucose 163 H, Calcium 8.4 L, Total Bilirubin 0.60, AST 20, ALT 17, Alkaline Phosphatase 88, Troponin I High Sens 623 H*, B-Natriuretic Peptide 1511.9 H, Total Protein 6.5, Albumin 3.3, Globulin 3.2, Albumin/Globulin Ratio 1.0, Lipase 10 L 11/07/23 16:00: Magnesium 1.7, Troponin I High Sens 620 H* 11/07/23 20:35: Troponin I High Sens 1091 H* 11/08/23 06:28: WBC 22.3 H, RBC 4.61, Hgb 14.3, Hct 42.9, MCV 93.1, MCH 31.0, MCHC 33.3, RDW Std Deviation 46.9 H, RDW Coeff of Joseph 13.7, Plt Count 218, MPV 10.7, Immature Gran % (Auto) 0.500, Neut % (Auto) 81.8 H, Lymph % (Auto) 12.5 L, [place] % (Auto) 5.1, Eos % (Auto) 0.0, Baso % (Auto) 0.1, Absolute Neuts (auto) 18.2 H, Absolute Lymphs (auto) 2.78, Nucleated RBC % 0, Sodium 137, Potassium 4.2, Chloride 111 H, Carbon Dioxide 20.0 L, Anion Gap 6, BUN 20 H, Creatinine 1.83 H, Estim Creat Clear Calc 36.63, Est GFR (MDRD) Af Amer 37 L, Est GFR (MDRD) Non-Af 31 L, BUN/Creatinine Ratio 10.9, Glucose 124 H, Calcium 8.4 L, Triglycerides 162, Cholesterol 128, LDL Cholesterol 48, VLDL Cholesterol 32, HDL Cholesterol 48, TSH 1.00 ABG Data ABG results: ABG 11/08/23 07:39 Specimen Type ART Sample Site R Radial pH 7.36 Bicarbonate Actual 17.3 L Total CO2 18 Base Excess -8 L O2 Saturation 92 L O2 % 65.0 ABG pCO2 30.9 L ABG pO2 64 L Lester Test Positive Respiration Rate 12 O2 Delivery Device BiPAP Vent Mode st POC PEEP 8 Clinical Comments 14 8 12 65 Rhythm Strip Rhythm Strip: Sinus Tach Rate: 113 Ectopy: None Imaging Radiology Impression Brain CT 11/07/23 12:45 IMPRESSION: Sinusitis. Electronically Signed: Chico Renteria MD at 13:27 EDT , Chest X-Ray 11/07/23 14:25 IMPRESSION: Increased interstitial pattern suggestive of CHF. Electronically Signed: Chico Renteria MD at 14:45 EDT , Chest CTA 11/07/23 18:18 IMPRESSION: COPD with superimposed mild ASHD and possible pulmonary interstitial edema more pronounced in the lower lobes with associated pleural effusions and bibasilar consolidation more severe on the left. Cannot exclude coexisting pneumonia No evidence for pulmonary embolus Electronically Signed: Jose Alberto Pennington MD at 22:00 EDT , Charges/Coding Visit Charges Inpatient E&M: 17817 Init Hosp L3
[2023-11-08] MEDS: Ziprasidone HCl 20 MG Capsule 40 MG PO (09:10)
[2023-11-08] MEDS: Pantoprazole Sodium 40 MG Tablet PO (09:10)
[2023-11-08] MEDS: Aspirin E.C. 81 MG Tablet PO (09:10)
[2023-11-08] MEDS: Sertraline 50 MG Tablet PO (09:10)
[2023-11-08] MEDS: Enoxaparin 80 MG/0.8 ML Syringe SC ×2 (09:11→20:06)
[2023-11-08] MEDS: Metoprolol Tartrate 50 MG Tablet PO (09:11)
--- NOTE | 2023-11-08 09:15 | PCM.PN.CARD ---
Subjective Subjective Patient seen and evaluated. Doing somewhat better this morning. Still on BiPAP. Objective Data Vital Signs: Vital Signs Temp Pulse Resp BP Pulse Ox O2 Del Method O2 Flow Rate 97.2 F L 87 17 115/87 H 93 High Flow 15 11/08/23 08:00 11/08/23 09:11 11/08/23 08:00 11/08/23 08:00 11/08/23 09:13 11/08/23 09:13 11/08/23 09:13 FiO2 65 11/08/23 08:00 Oxygen Flow Rate (L/min) 15 Oxygen Delivery Method High Flow Weight: 183 lb Body Mass Index (BMI) 31.4 Intake & Output: Intake and Output for Last 24 Hours 11/06/23 11/07/23 11/08/23 23:59 23:59 23:59 Intake Total 1336 / 1936 600 / 600 Output Total 550 / 550 Balance 1336 / 1786 50 / 50 Lab / Micro Data 11/08/23 06:28 11/08/23 06:28 Labs: Laboratory Results - last 24 hr 11/07/23 14:34: D-Dimer Quant (PE/DVT) 0.34 11/07/23 14:35: WBC 18.9 H, RBC 4.48, Hgb 14.0, Hct 41.9, MCV 93.5, MCH 31.3, MCHC 33.4, RDW Std Deviation 46.1 H, RDW Coeff of Joseph 13.5, Plt Count 237, MPV 10.0, Immature Gran % (Auto) 0.500, Neut % (Auto) 86.8 H, Lymph % (Auto) 7.7 L, Tyrrell % (Auto) 4.6, Eos % (Auto) 0.2, Baso % (Auto) 0.2, Absolute Neuts (auto) 16.5 H, Absolute Lymphs (auto) 1.45, Nucleated RBC % 0, Sodium 144, Potassium 3.7, Chloride 114 H, Carbon Dioxide 20.0 L, Anion Gap 10, BUN 11, Creatinine 1.20 H, Estim Creat Clear Calc 55.04, Est GFR (MDRD) Af Amer 60, Est GFR (MDRD) Non-Af 50 L, BUN/Creatinine Ratio 9.2 L, Glucose 163 H, Calcium 8.4 L, Total Bilirubin 0.60, AST 20, ALT 17, Alkaline Phosphatase 88, Troponin I High Sens 623 H*, B-Natriuretic Peptide 1511.9 H, Total Protein 6.5, Albumin 3.3, Globulin 3.2, Albumin/Globulin Ratio 1.0, Lipase 10 L 11/07/23 16:00: Magnesium 1.7, Troponin I High Sens 620 H* 11/07/23 20:35: Troponin I High Sens 1091 H* 11/08/23 06:28: WBC 22.3 H, RBC 4.61, Hgb 14.3, Hct 42.9, MCV 93.1, MCH 31.0, MCHC 33.3, RDW Std Deviation 46.9 H, RDW Coeff of Joseph 13.7, Plt Count 218, MPV 10.7, Immature Gran % (Auto) 0.500, Neut % (Auto) 81.8 H, Lymph % (Auto) 12.5 L, Tyrrell % (Auto) 5.1, Eos % (Auto) 0.0, Baso % (Auto) 0.1, Absolute Neuts (auto) 18.2 H, Absolute Lymphs (auto) 2.78, Nucleated RBC % 0, Sodium 137, Potassium 4.2, Chloride 111 H, Carbon Dioxide 20.0 L, Anion Gap 6, BUN 20 H, Creatinine 1.83 H, Estim Creat Clear Calc 36.63, Est GFR (MDRD) Af Amer 37 L, Est GFR (MDRD) Non-Af 31 L, BUN/Creatinine Ratio 10.9, Glucose 124 H, Calcium 8.4 L, Triglycerides 162, Cholesterol 128, LDL Cholesterol 48, VLDL Cholesterol 32, HDL Cholesterol 48, TSH 1.00 ABG Data ABG results: ABG 11/08/23 07:39 Specimen Type ART Sample Site R Radial pH 7.36 Bicarbonate Actual 17.3 L Total CO2 18 Base Excess -8 L O2 Saturation 92 L O2 % 65.0 ABG pCO2 30.9 L ABG pO2 64 L Lester Test Positive Respiration Rate 12 O2 Delivery Device BiPAP Vent Mode st POC PEEP 8 Clinical Comments 14 8 12 65 Rhythm Strip Rhythm Strip: Sinus Tach Rate: 113 Ectopy: None Cardiology Labs/Tests 11/07/23 14:34: D-Dimer Quant (PE/DVT) 0.34 11/07/23 14:35: WBC 18.9 H, RBC 4.48, Hgb 14.0, Hct 41.9, MCV 93.5, MCH 31.3, MCHC 33.4, Plt Count 237, MPV 10.0, Immature Gran % (Auto) 0.500, Neut % (Auto) 86.8 H, Lymph % (Auto) 7.7 L, Tyrrell % (Auto) 4.6, Eos % (Auto) 0.2, Baso % (Auto) 0.2, Absolute Neuts (auto) 16.5 H, Nucleated RBC % 0, Sodium 144, Potassium 3.7, Chloride 114 H, Carbon Dioxide 20.0 L, Anion Gap 10, BUN 11, Creatinine 1.20 H, Est GFR (MDRD) Af Amer 60, Est GFR (MDRD) Non-Af 50 L, BUN/Creatinine Ratio 9.2 L, Glucose 163 H, Calcium 8.4 L, Total Bilirubin 0.60, B-Natriuretic Peptide 1511.9 H 11/07/23 16:00: Magnesium 1.7 11/08/23 06:28: WBC 22.3 H, RBC 4.61, Hgb 14.3, Hct 42.9, MCV 93.1, MCH 31.0, MCHC 33.3, Plt Count 218, MPV 10.7, Immature Gran % (Auto) 0.500, Neut % (Auto) 81.8 H, Lymph % (Auto) 12.5 L, [place]rell % (Auto) 5.1, Eos % (Auto) 0.0, Baso % (Auto) 0.1, Absolute Neuts (auto) 18.2 H, Nucleated RBC % 0, Sodium 137, Potassium 4.2, Chloride 111 H, Carbon Dioxide 20.0 L, Anion Gap 6, BUN 20 H, Creatinine 1.83 H, Est GFR (MDRD) Af Amer 37 L, Est GFR (MDRD) Non-Af 31 L, BUN/Creatinine Ratio 10.9, Glucose 124 H, Calcium 8.4 L, Triglycerides 162, Cholesterol 128, LDL Cholesterol 48, VLDL Cholesterol 32, HDL Cholesterol 48 11/08/23 07:39: pH 7.36, Bicarbonate Actual 17.3 L, Base Excess -8 L, O2 Saturation 92 L, ABG pCO2 30.9 L, ABG pO2 64 L, Lester Test Positive Rhythm: EKG: ECHO: Stress Test: Cardiac Cath: PCI: CT Surgery: Holter monitor: EPS: PPM: CXR: Chest CT Scan: Radiography Diagnostic Testing: Radiology Impression Brain CT 11/07/23 12:45 IMPRESSION: Sinusitis. Electronically Signed: Chico Renteria MD at 13:27 EDT , Chest X-Ray 11/07/23 14:25 IMPRESSION: Increased interstitial pattern suggestive of CHF. Electronically Signed: Chico Renteria MD at 14:45 EDT , Chest CTA 11/07/23 18:18 IMPRESSION: COPD with superimposed mild ASHD and possible pulmonary interstitial edema more pronounced in the lower lobes with associated pleural effusions and bibasilar consolidation more severe on the left. Cannot exclude coexisting pneumonia No evidence for pulmonary embolus Electronically Signed: Jose Alberto Pennington MD at 22:00 EDT , Physical Exam Const alert, oriented x3 and no apparent distress General Appearance: cooperative HEENT hearing grossly normal bilaterally Head and Scalp: atraumatic Eyes EOMs intact bilaterally Neck General: normal visual inspection Chest inspection of chest normal and palpation of chest normal Resp normal respiratory effort Auscultation: clear to auscultation bilaterally Cardio regular rate, regular rhythm, S1 normal heart sound and S2 normal heart sound Jugular Venous Distention: JVD GI normal to inspection, nondistended, normoactive bowel sounds Extremity normal capillary refill and no pedal edema Peripheral Pulses: Yes pulses 2+ throughout and femoral pulses present Skin no rashes or lesions noted Neuro oriented x3 and CN's II-XII intact bilaterally Psych Appearance: grossly normal and appropriate Assessment & Plan Assessment/Plan (1) Elevated troponin: PLAN: Patient presents with noncardiac related complaints, complaints of chest discomfort eventually and then has an abnormal cardiac enzyme. The pattern does not have a rise and fall at this particular time and is not suggestive of a non-ST elevation myocardial infarction but is secondary to the elevated troponin level. Echocardiogram this morning demonstrates an ejection fraction of 15% with a pattern suggestive of Takotsubo cardiomyopathy. She will eventually need a cardiac catheterization to confirm the above. Will continue with supportive management at this time. (2) SVT (supraventricular tachycardia): PLAN: She did have evidence of a narrow complex tachycardia. It does not appear that this was an AVNRT. Beta-blockers can be started Continue Lovenox for now Will recommend replacing magnesium It is possible that she was having intermittent supraventricular tachyarrhythmia which led to the elevation of the cardiac enzymes. I agree with observing further in the intensive care unit.
--- NOTE | 2023-11-08 09:40 | CASEMGMT ---
HENRY العراقي Assessment Face to Face with patient for initial transition planning/care coordination assessment. HENRY العراقي introduced self and role at [facility], pt voices understanding. Pt is A&Ox4 and is resting comfortably in bed and is calm. Pt is currently on HFNC. Care providers, pharmacy, and demographics verified. Admitting dx: Headache LACE Strata: 2 PCP: Susy Funez Specialists: Dr. Holcomb (GI in [place]) Preferred Pharmacy: [facility] Insurance: [facility] Prescription Benefit: Yes LNOK: Eliazar Warner (SO) Living Arrangements: Pt lives with her SO in a second story apartment with 18 steps to manage with no elevator ADLs/IADLs: States ind at [place] Transportation: Pt does not drive. Pt SO drives her DME: Pt is currently requiring additional Oxygen. A verbal list of local in-network DME companies provided to the pt at this time. Pt states that she would prefer to go through [facility] for home oxygen needs. HHC/SNF: Denies history but would like HHC set up. Pt?s goal: Home with HHC. Pt states that she will not be able to leave the home for some time after DC home. Plan: Pt states that once she is medically ready, she would like HHC set up for SN only. Pt denies wanting to see a list of local in-network HHC agencies and states that she would like to go through [facility] HH. CM to follow and make referral once appropriate. Per ICU rounds, there are tentative plans for the pt to receive a cardiac cath tomorrow. DC compliance assistant notified and to create tertiary list in the case that the pt would require transfer. CM to follow. Isaías Haynes RN, CM
--- NOTE | 2023-11-08 09:48 | CASEMGMT ---
Tertiary Insurance review for hospitals In-network with [employer] [facility] insurance if transfer is recommended is as follows: [facility], [facility], [facility], [facility], [facility], [facility] ([facility]), [facility], [facility], and . Evonne Preston, Discharge Planning Asst.
[2023-11-08] MEDS: metOLazone 5 MG Tablet PO (09:51)
[2023-11-08] MEDS: Ipratropium 0.5 MG/2.5 ML SOLUTION INHALATION ×3 (11:13→18:55)
--- NOTE | 2023-11-08 11:26 | PCM.PN.HOSP ---
Reason for Visit Reason for Visit: Diagnoses Non-ST elevation (NSTEMI) myocardial infarction (11/07/23) Supraventricular tachycardia, unspecified (11/07/23) Acute respiratory failure with hypoxia (11/07/23) Headache, unspecified (11/07/23) Other specified abnormal findings of blood chemistry (11/07/23) Subjective Subjective Patient was seen and examined today, she was transferred to ICU due to an arrhythmia yesterday which appeared to be SVT, she is currently on BiPAP and I had pulmonary medicine see her today. Patient states that she does have a history of COPD. CTA of the chest performed shows no evidence of pulmonary embolism, there are infiltrates noted on the chest CTA which may indicate congestive heart failure. Echocardiogram report is pending at this time, notes from cardiology however states that the patient's ejection fraction was 15% with a pattern suggestive of Takotsubo's cardiomyopathy. Objective Data Objective Data Vital Signs: Vital Signs Temp Pulse Resp BP Pulse Ox O2 Del Method O2 Flow Rate 97.2 F L 85 35 H 109/60 94 Bi-pap 15 11/08/23 08:00 11/08/23 11:13 11/08/23 11:13 11/08/23 11:00 11/08/23 11:13 11/08/23 11:00 11/08/23 10:00 FiO2 65 11/08/23 11:13 Oxygen Flow Rate (L/min) 15 Oxygen Delivery Method Bi-pap Weight: 83.007 kg Body Mass Index (BMI) 31.4 Intake & Output: Intake and Output for Last 24 Hours 11/06/23 11/07/23 11/08/23 23:59 23:59 23:59 Intake Total 1336 / 1936 840 / 840 Output Total 1125 / 1125 Balance 1336 / 1786 -285 / -285 Lab / Micro Data 11/08/23 06:28 11/08/23 06:28 Labs: Laboratory Results - last 24 hr 11/07/23 14:34: D-Dimer Quant (PE/DVT) 0.34 11/07/23 14:35: WBC 18.9 H, RBC 4.48, Hgb 14.0, Hct 41.9, MCV 93.5, MCH 31.3, MCHC 33.4, RDW Std Deviation 46.1 H, RDW Coeff of Joseph 13.5, Plt Count 237, MPV 10.0, Immature Gran % (Auto) 0.500, Neut % (Auto) 86.8 H, Lymph % (Auto) 7.7 L, [place] % (Auto) 4.6, Eos % (Auto) 0.2, Baso % (Auto) 0.2, Absolute Neuts (auto) 16.5 H, Absolute Lymphs (auto) 1.45, Nucleated RBC % 0, Sodium 144, Potassium 3.7, Chloride 114 H, Carbon Dioxide 20.0 L, Anion Gap 10, BUN 11, Creatinine 1.20 H, Estim Creat Clear Calc 55.04, Est GFR (MDRD) Af Amer 60, Est GFR (MDRD) Non-Af 50 L, BUN/Creatinine Ratio 9.2 L, Glucose 163 H, Calcium 8.4 L, Total Bilirubin 0.60, AST 20, ALT 17, Alkaline Phosphatase 88, Troponin I High Sens 623 H*, B-Natriuretic Peptide 1511.9 H, Total Protein 6.5, Albumin 3.3, Globulin 3.2, Albumin/Globulin Ratio 1.0, Lipase 10 L 11/07/23 16:00: Magnesium 1.7, Troponin I High Sens 620 H* 11/07/23 20:35: Troponin I High Sens 1091 H* 11/08/23 06:28: WBC 22.3 H, RBC 4.61, Hgb 14.3, Hct 42.9, MCV 93.1, MCH 31.0, MCHC 33.3, RDW Std Deviation 46.9 H, RDW Coeff of Joseph 13.7, Plt Count 218, MPV 10.7, Immature Gran % (Auto) 0.500, Neut % (Auto) 81.8 H, Lymph % (Auto) 12.5 L, [place] % (Auto) 5.1, Eos % (Auto) 0.0, Baso % (Auto) 0.1, Absolute Neuts (auto) 18.2 H, Absolute Lymphs (auto) 2.78, Nucleated RBC % 0, Sodium 137, Potassium 4.2, Chloride 111 H, Carbon Dioxide 20.0 L, Anion Gap 6, BUN 20 H, Creatinine 1.83 H, Estim Creat Clear Calc 36.63, Est GFR (MDRD) Af Amer 37 L, Est GFR (MDRD) Non-Af 31 L, BUN/Creatinine Ratio 10.9, Glucose 124 H, Calcium 8.4 L, Triglycerides 162, Cholesterol 128, LDL Cholesterol 48, VLDL Cholesterol 32, HDL Cholesterol 48, TSH 1.00 ABG Data ABG results: ABG 11/08/23 07:39 Specimen Type ART Sample Site R Radial pH 7.36 Bicarbonate Actual 17.3 L Total CO2 18 Base Excess -8 L O2 Saturation 92 L O2 % 65.0 ABG pCO2 30.9 L ABG pO2 64 L Lester Test Positive Respiration Rate 12 O2 Delivery Device BiPAP Vent Mode st POC PEEP 8 Clinical Comments 14 8 12 65 Radiography Diagnostic Testing: Radiology Impression Brain CT 11/07/23 12:45 IMPRESSION: Sinusitis. Electronically Signed: Chico Renteria MD at 13:27 EDT , Chest X-Ray 11/07/23 14:25 IMPRESSION: Increased interstitial pattern suggestive of CHF. Electronically Signed: Chico Renteria MD at 14:45 EDT , Chest CTA 11/07/23 18:18 IMPRESSION: COPD with superimposed mild ASHD and possible pulmonary interstitial edema more pronounced in the lower lobes with associated pleural effusions and bibasilar consolidation more severe on the left. Cannot exclude coexisting pneumonia No evidence for pulmonary embolus Electronically Signed: Jose Alberto Pennington MD at 22:00 EDT , Rhythm Strip Rhythm Strip: Sinus Tach Rate: 113 Ectopy: None Physical Exam Const alert, oriented x3 and no apparent distress Constitutional Narrative: Patient appears in no respiratory distress today, she is on BiPAP currently General Appearance: cooperative, well kempt and well developed Orientation / Consciousness: awake, oriented to person, oriented to place and oriented to time HEENT normocephalic, head/scalp atraumatic and moist oral mucous membranes Eyes PERRL, EOMs intact bilaterally and conjunctivae normal Neck supple, no JVD, thyroid normal and no carotid bruits General: trachea midline Resp normal respiratory effort, no retractions and no use of accessory muscles Resp Narrative: Breath sounds are diminished bilaterally Auscultation: Negative for rales, rhonchi or wheezes Cardio regular rate, regular rhythm, S1 normal heart sound, S2 normal heart sound, no murmurs, no rub and no gallops GI normal to inspection, nondistended, normoactive bowel sounds, soft to palpation, non-tender and non-distended Extremity no clubbing, cyanosis or edema Skin no rashes or lesions noted General Skin Exam: no breakdown Neuro oriented x3, CN's II-XII intact bilaterally, moves all extremities, no focal motor deficits and no sensory deficits noted Sensorium / Orientation: awake and alert Speech: speech normal Psych affect normal Assessment & Plan Assessment/Plan (1) Non-ST elevated myocardial infarction: PLAN: Plan 1. Non-ST elevated NC-cardiology is participating in her care, she is currently on a beta-sydney and is receiving Lasix as needed, patient was taken off losartan by cardiology today due to low blood pressure #2 acute hypoxic respiratory failure-probably secondary to acute congestive heart failure with reduced ejection fraction, again patient will receive diuresis as needed, pulmonary medicine is participating in her care. #3 chronic obstructive pulmonary disease-complicates care, management, recovery, and prognosis, patient will receive aerosol treatments #4 tachyarrhythmia-probable SVT-patient had an episode of what appeared to be SVT yesterday, she appears to be in normal sinus rhythm today. #5 cardiomyopathy-type unknown-cardiology is participating in her care #6 elevated creatinine-it is unknown whether the patient has baseline chronic kidney disease, labs will be monitored Total clinical time spent by myself addressing the patient's medical issues, reviewing all of her data, and collaborating with patient's care team: 35 minutes Charges/Coding Visit Charges Inpatient E&M: 47942 Subs Hosp L2
[2023-11-08 12:40] LABS: M R Staph aureus DNA By PCR Negative (Negative); Probe Check PASS; Specimen Processing Control PASS
--- NOTE | 2023-11-08 14:52 | CASEMGMT ---
SW met with patient. Introduced self and role at [facility]. Patient was wearing a bipap so she was limited on talking. Patient did confirm she has concerns with food. SW provided patient with a list of food pantries, churches that provide meals, home delivered meals, [employer], and a [employer] card. Kacie Ward FERMENTER ОЛЬГА
[2023-11-08] MEDS: Furosemide 500 MG in Empty Viaflex 50 mL 1 EACH CONT INF (18:28)
[2023-11-08] MEDS: Carvedilol 6.25 MG Tablet PO (20:06)
[2023-11-08] MEDS: Ondansetron 4 MG/2 ML Vial IV (20:10)
[2023-11-09] VITALS (24 sets, daily range): BP systolic 81–131; BP diastolic 52–80; PULSE 58–90; RESP 11–23; TEMP 36.6–37; O2SAT 90–99; BMI 30.9
[2023-11-09] MEDS: Acetaminophen 500 MG Tablet 1000 MG PO ×2 (05:36→21:34)
[2023-11-09 06:11] LABS: Absolute Lymphocyte Count 2.66 X10^3/uL (0.83-4.51); Absolute Neutrophil Count 13.9 X10^3/uL (2.0-7.7); Basophil# 0.04 X10^3/uL; Basophil% 0.2 % (0-1); Eosinophil# 0.02 X10^3/uL; Eosinophils% 0.1 % (0-5); Hematocrit 39.8 % (37-47); Hemoglobin 13.7 g/dL (12.0-15.0); Lymphocyte # 2.66 X10^3/ul (0.83-4.51); Lymphocyte % 15.2 % (19-41); Mean Corp Hgb Conc 34.4 g/dL (32-36); Mean Corpuscular Hgb 30.9 pg (27.0-32.0); Mean Corpuscular Volume 89.8 fL (81-99); Mean Platelet Vol. 10.8 fl (6.2-12.0); Monocyte# 0.75 X10^3/uL; Monocyte% 4.3 % (0-10); NRBC Flagged by Analyzer 0 % (0-5); Neutrophil # 13.93 X10^3/uL (2.7-7.7); Neutrophil % 79.6 % (47-70); Platelet Count 190 K/mm3 (150-450); RBC Distribution Width CV 13.5 % (11.6-14.6); RBC Distribution Width SD 44.2 fl (35.1-43.9); Red Blood Count 4.43 M/mm3 (4.2-5.4); White Blood Count 17.5 K/mm3 (4.4-11.0)
[2023-11-09 06:24] LABS: Anion Gap 11 (5-15); BUN 36 mg/dL (7-18); BUN/Creat Ratio 19.3 RATIO (10-20); Calcium,Total 8.7 mg/dL (8.5-10.1); Chloride 100 mmol/L (98-107); Creatinine, Serum 1.87 mg/dL (0.55-1.02); EST Glomerular Filtration Rate 30 mL/min (>60); Est Glom Filt Rate - Afr Amer 36 mL/min (>60); Estimated Creatinine Clearance 35.61 ml/min; Glucose 141 mg/dL (74-106); Potassium 3.1 mmol/L (3.5-5.1); Sodium Level 137 mmol/L (136-145)
--- NOTE | 2023-11-09 06:57 | PCM.PN.INT ---
Assessment & Plan Assessment/Plan (1) Acute hypoxemic respiratory failure: PLAN: Plan RECOMMENDATIONS: 1. Continue supplemental oxygen to maintain saturations at or above 90%. 2. Ongoing diuresis as tolerated by hemodynamics and renal function. 3. Medical management of SVT per cardiology. Tentative plans for cardiac catheterization today. 4. Continue scheduled Atrovent aerosols. 5. Encourage incentive spirometer use and mobilize patient as tolerated. 6. Potassium repletion as ordered. IMPRESSIONS: 1. Acute hypoxemic respiratory failure Appears secondary to acute decompensated heart failure. The patient's oxygenation status has been improving with PAP therapy and diuresis. Cardiology is currently following. The patient was noted to have a depressed ejection fraction of 20% on echocardiogram. Therefore, there are tentative plans to proceed with ischemic evaluation later today. In the interim, the patient will be continued on supplemental oxygen to maintain saturations at or above 90% along with diuresis as tolerated by hemodynamics and renal function. In light of her history of COPD, scheduled Atrovent will be continued. 2. Elevated troponin/SVT Medical management per cardiology. The patient will be continued on beta-blockers. 3. History of tobacco dependency, in remission/hypertension/hyperlipidemia/anxiety/depression Complicates care, management, recovery and prognosis. Continue home medications as indicated. This note was generated with [employer] dictation software. It may contain incorrect words, spelling, and punctuation that were not noted in checking the note before signing. Subjective Subjective The patient was seen and examined at the bedside this morning. Events from the last 24 hours have been reviewed. The patient is currently afebrile, hemodynamically stable and maintaining appropriate oxygen saturations on BiPAP with an FiO2 requirement of 40%. The patient's oxygen requirement has steadily improved over the last 24 hours. She has been maintained on a continuous Lasix infusion with good urine output noted. Her white count has improved to 17,000. Potassium is low at 3.1. Creatinine remains elevated at 1.87. There are tentative plans to proceed with cardiac catheterization today, per cardiology. Objective Data Objective Data The patient's most recent lab work, culture data and imaging studies have all been personally reviewed. Surface echocardiogram demonstrated evidence of stage II diastolic dysfunction with severe global hypokinesis of the LV with an ejection fraction noted to be 20%. Respiratory viral panel was negative. Vital Signs: Vital Signs Temp Pulse Resp BP Pulse Ox O2 Del Method O2 Flow Rate 98.1 F 79 15 96/71 99 Bi-pap 15 11/09/23 02:00 11/09/23 06:00 11/09/23 06:00 11/09/23 06:00 11/09/23 06:00 11/09/23 06:00 11/08/23 10:00 FiO2 40 11/09/23 06:00 Oxygen Flow Rate (L/min) 15 Oxygen Delivery Method Bi-pap Weight: 180 lb 8.937 oz Body Mass Index (BMI) 30.9 Intake & Output: Intake and Output for Last 24 Hours 11/07/23 11/08/23 11/09/23 23:59 23:59 23:59 Intake Total 1336 / 1936 960 / 960 100 / 100 Output Total 2250 / 2250 800 / 800 Balance 1336 / 1786 -1290 / -1290 -700 / -700 Lab / Micro Data Attestation: I reviewed the patient's lab results. 11/09/23 05:45 11/09/23 05:45 Labs: Laboratory Results - last 24 hr 11/08/23 06:28: Sodium 137, Potassium 4.2, Chloride 111 H, Carbon Dioxide 20.0 L, Anion Gap 6, BUN 20 H, Creatinine 1.83 H, Estim Creat Clear Calc 36.63, Est GFR (MDRD) Af Amer 37 L, Est GFR (MDRD) Non-Af 31 L, BUN/Creatinine Ratio 10.9, Glucose 124 H, Calcium 8.4 L, Triglycerides 162, Cholesterol 128, LDL Cholesterol 48, VLDL Cholesterol 32, HDL Cholesterol 48, TSH 1.00 11/08/23 09:05: MRSA (PCR) Negative 11/09/23 05:45: WBC 17.5 H, RBC 4.43, Hgb 13.7, Hct 39.8, MCV 89.8, MCH 30.9, MCHC 34.4, RDW Std Deviation 44.2 H, RDW Coeff of Joseph 13.5, Plt Count 190, MPV 10.8, Immature Gran % (Auto) 0.600, Neut % (Auto) 79.6 H, Lymph % (Auto) 15.2 L, [place] % (Auto) 4.3, Eos % (Auto) 0.1, Baso % (Auto) 0.2, Absolute Neuts (auto) 13.9 H, Absolute Lymphs (auto) 2.66, Nucleated RBC % 0, Sodium 137, Potassium 3.1 L, Chloride 100, Carbon Dioxide 26.0, Anion Gap 11, BUN 36 H, Creatinine 1.87 H, Estim Creat Clear Calc 35.61, Est GFR (MDRD) Af Amer 36 L, Est GFR (MDRD) Non-Af 30 L, BUN/Creatinine Ratio 19.3, Glucose 141 H, Calcium 8.7 Micro: Microbiology 11/08/23 09:05 Mucosa - Nasopharyngeal Respiratory Panel (PCR) - Final ABG Data ABG results: ABG 11/08/23 07:39 Specimen Type ART Sample Site R Radial pH 7.36 Bicarbonate Actual 17.3 L Total CO2 18 Base Excess -8 L O2 Saturation 92 L O2 % 65.0 ABG pCO2 30.9 L ABG pO2 64 L Lester Test Positive Respiration Rate 12 O2 Delivery Device BiPAP Vent Mode st POC PEEP 8 Clinical Comments 14 8 12 65 Radiography Diagnostic Testing: Radiology Impression Echocardiogram 11/07/23 16:37 Interpretation Summary Normal LV size. The left ventricular ejection fraction is 20 %. Mild (1+) eccentric mitral valve insufficiency. Stage 2 diastolic dysfunction. Pulmonary artery systolic pressure is 40 mmHg. Severe hypokinesis of the anterior wall apex and mid inferior and inferior apical wall. The above is consistent with a Takotsubo cardiomyopathy. Contrast injection was performed. Ordering Physician: Leonard Rebollar Performed By: Sandra Hoang RDCS Rhythm Strip Rhythm Strip: Sinus Tach Rate: 113 Ectopy: None Physical Exam Const alert and no apparent distress Constitutional Narrative: Tolerating BiPAP therapy currently. General Appearance: cooperative HEENT normocephalic and head/scalp atraumatic Eyes PERRL, EOMs intact bilaterally and conjunctivae normal Neck supple General: trachea midline Chest inspection of chest normal Resp normal respiratory effort and no use of accessory muscles Auscultation: rales and diminished lung sounds Cardio regular rate, regular rhythm, S1 normal heart sound and S2 normal heart sound GI normal to inspection, nondistended, normoactive bowel sounds Extremity no clubbing, cyanosis or edema Skin no rashes or lesions noted Neuro oriented x3, CN's II-XII intact bilaterally and no focal motor deficits Psych cooperative and affect normal Charges/Coding Visit Charges Inpatient E&M: 79221 Subs Hosp L3
[2023-11-09] MEDS: Ipratropium 0.5 MG/2.5 ML SOLUTION INHALATION ×4 (07:17→19:55)
[2023-11-09] MEDS: Aspirin E.C. 81 MG Tablet PO (08:23)
[2023-11-09] MEDS: Potassium Chloride Oral Tablet 20 MEQ 40 MEQ PO (08:23)
[2023-11-09] MEDS: Potassium Chloride 10mEq/100mL 10 MEQ/100 ML IV.SOLN. 100 MEQ IV BOLUS ×4 (08:30→12:07)
[2023-11-09 08:33] LABS: Magnesium 2.3 mg/dL (1.6-2.6)
--- NOTE | 2023-11-09 09:17 | NURSING ---
Patient taken to the boat laborer at this time.
[2023-11-09] MEDS: Ziprasidone HCl 20 MG Capsule 40 MG PO (11:00)
[2023-11-09] MEDS: Pantoprazole Sodium 40 MG Tablet PO (11:01)
[2023-11-09] MEDS: Sertraline 50 MG Tablet PO (11:01)
[2023-11-09] MEDS: hydrOXYzine PAM 25 MG Capsule 50 MG PO ×2 (11:01→21:33)
--- NOTE | 2023-11-09 11:21 | PN.CARD_ITS ---
Subjective Subjective Patient seen and evaluated. Underwent cardiac catheterization today. Objective Data Vital Signs: Vital Signs Temp Pulse Resp BP Pulse Ox O2 Del Method O2 Flow Rate 98.1 F 74 17 113/66 91 Nasal Cannula 6 11/09/23 08:00 11/09/23 09:00 11/09/23 09:00 11/09/23 09:00 11/09/23 09:00 11/09/23 09:00 11/09/23 09:00 FiO2 30 11/09/23 07:17 Oxygen Flow Rate (L/min) 6 Oxygen Delivery Method Nasal Cannula Weight: 180 lb 8.937 oz Body Mass Index (BMI) 30.9 Intake & Output: Intake and Output for Last 24 Hours 11/07/23 11/08/23 11/09/23 23:59 23:59 23:59 Intake Total 1336 / 1936 960 / 960 300 / 300 Output Total 2250 / 2250 800 / 800 Balance 1336 / 1786 -1290 / -1290 -500 / -500 Lab / Micro Data 11/09/23 05:45 11/09/23 05:45 Labs: Laboratory Results - last 24 hr 11/08/23 09:05: MRSA (PCR) Negative 11/09/23 05:45: WBC 17.5 H, RBC 4.43, Hgb 13.7, Hct 39.8, MCV 89.8, MCH 30.9, MCHC 34.4, RDW Std Deviation 44.2 H, RDW Coeff of Joseph 13.5, Plt Count 190, MPV 10.8, Immature Gran % (Auto) 0.600, Neut % (Auto) 79.6 H, Lymph % (Auto) 15.2 L, [place] % (Auto) 4.3, Eos % (Auto) 0.1, Baso % (Auto) 0.2, Absolute Neuts (auto) 13.9 H, Absolute Lymphs (auto) 2.66, Nucleated RBC % 0, Sodium 137, Potassium 3.1 L, Chloride 100, Carbon Dioxide 26.0, Anion Gap 11, BUN 36 H, Creatinine 1.87 H, Estim Creat Clear Calc 35.61, Est GFR (MDRD) Af Amer 36 L, Est GFR (MDRD) Non-Af 30 L, BUN/Creatinine Ratio 19.3, Glucose 141 H, Calcium 8.7, Magnesium 2.3 Micro: Microbiology 11/08/23 09:05 Mucosa - Nasopharyngeal Respiratory Panel (PCR) - Final Rhythm Strip Rhythm Strip: Sinus Tach Rate: 113 Ectopy: None Cardiology Labs/Tests 11/09/23 05:45: WBC 17.5 H, RBC 4.43, Hgb 13.7, Hct 39.8, MCV 89.8, MCH 30.9, MCHC 34.4, Plt Count 190, MPV 10.8, Immature Gran % (Auto) 0.600, Neut % (Auto) 79.6 H, Lymph % (Auto) 15.2 L, [place] % (Auto) 4.3, Eos % (Auto) 0.1, Baso % (Auto) 0.2, Absolute Neuts (auto) 13.9 H, Nucleated RBC % 0, Sodium 137, P otassium 3.1 L, Chloride 100, Carbon Dioxide 26.0, Anion Gap 11, BUN 36 H, C reatinine 1.87 H, Est GFR (MDRD) Af Amer 36 L, Est GFR (MDRD) Non-Af 30 L, BUN/Creatinine Ratio 19.3, Glucose 141 H, Calcium 8.7, Magnesium 2.3 Rhythm: EKG: ECHO: Stress Test: Cardiac Cath: PCI: CT Surgery: Holter monitor: EPS: PPM: CXR: Chest CT Scan: Radiography Diagnostic Testing: Radiology Impression Echocardiogram 11/07/23 16:37 Interpretation Summary Normal LV size. The left ventricular ejection fraction is 20 %. Mild (1+) eccentric mitral valve insufficiency. Stage 2 diastolic dysfunction. Pulmonary artery systolic pressure is 40 mmHg. Severe hypokinesis of the anterior wall apex and mid inferior and inferior apical wall. The above is consistent with a Takotsubo cardiomyopathy. Contrast injection was performed. Ordering Physician: Leonard Rebollar Performed By: Sandra Hoang RDCS Assessment & Plan Assessment/Plan (1) Elevated troponin: PLAN: Patient presents with noncardiac related complaints, complaints of chest discomfort eventually and then has an abnormal cardiac enzyme. The pattern does not have a rise and fall at this particular time and is not suggestive of a non- ST elevation myocardial infarction but is secondary to the elevated troponin level. Echocardiogram demonstrated an EF of 15% with a pattern suggestive of Takotsubo cardiomyopathy. Patient underwent a cardiac catheterization which demonstrated normal coronary arteries corroborating the above information. Will continue with supportive management. (2) SVT (supraventricular tachycardia): PLAN: She did have evidence of a narrow complex tachycardia. It does not appear that this was an AVNRT. Beta-blockers can be started It is possible that she was having intermittent supraventricular tachyarrhythmia which led to the elevation of the cardiac enzymes. If patient is off the BiPAP she can be transferred to the telemetry unit. Will follow-up in office after discharge
[2023-11-09] MEDS: 0.9% Saline Lock 10 ML Syringe IV (11:32)
[2023-11-09] MEDS: Ondansetron 4 MG/2 ML Vial IV ×2 (11:32→20:02)
--- NOTE | 2023-11-09 11:40 | PCM.PN.HOSP ---
Reason for Visit Reason for Visit: Diagnoses Non-ST elevation (NSTEMI) myocardial infarction (11/07/23) Supraventricular tachycardia, unspecified (11/07/23) Acute respiratory failure with hypoxia (11/07/23) Headache, unspecified (11/07/23) Other specified abnormal findings of blood chemistry (11/07/23) Subjective Subjective Patient was down having her left heart cath done this morning, saw her at the bedside this afternoon. She was sitting up comfortably in bed, conversing normally, in no acute distress. She was breathing comfortably on 6 L nasal cannula at rest with oxygen saturations in the mid 90s. Patient stated she felt fatigued but otherwise denied any acute pain or discomfort. She denies any shortness of breath at rest. She denied any lower extremity swelling. No other acute concerns at this time. Objective Data Objective Data Vital Signs: Vital Signs Temp Pulse Resp BP Pulse Ox O2 Del Method O2 Flow Rate 98.1 F 74 17 113/66 91 Nasal Cannula 6 11/09/23 08:00 11/09/23 09:00 11/09/23 09:00 11/09/23 09:00 11/09/23 09:00 11/09/23 09:00 11/09/23 09:00 FiO2 30 11/09/23 07:17 Oxygen Flow Rate (L/min) 6 Oxygen Delivery Method Nasal Cannula Weight: 81.9 kg Body Mass Index (BMI) 30.9 Intake & Output: Intake and Output for Last 24 Hours 11/07/23 11/08/23 11/09/23 23:59 23:59 23:59 Intake Total 1336 / 1936 960 / 960 300 / 300 Output Total 2250 / 2250 1550 / 1550 Balance 1336 / 1786 -1290 / -1290 -1250 / -1250 Lab / Micro Data 11/09/23 05:45 11/09/23 05:45 Labs: Laboratory Results - last 24 hr 11/08/23 09:05: MRSA (PCR) Negative 11/09/23 05:45: WBC 17.5 H, RBC 4.43, Hgb 13.7, Hct 39.8, MCV 89.8, MCH 30.9, MCHC 34.4, RDW Std Deviation 44.2 H, RDW Coeff of Joseph 13.5, Plt Count 190, MPV 10.8, Immature Gran % (Auto) 0.600, Neut % (Auto) 79.6 H, Lymph % (Auto) 15.2 L, [place] % (Auto) 4.3, Eos % (Auto) 0.1, Baso % (Auto) 0.2, Absolute Neuts (auto) 13.9 H, Absolute Lymphs (auto) 2.66, Nucleated RBC % 0, Sodium 137, Potassium 3.1 L, Chloride 100, Carbon Dioxide 26.0, Anion Gap 11, BUN 36 H, Creatinine 1.87 H, Estim Creat Clear Calc 35.61, Est GFR (MDRD) Af Amer 36 L, Est GFR (MDRD) Non-Af 30 L, BUN/Creatinine Ratio 19.3, Glucose 141 H, Calcium 8.7, Magnesium 2.3 Micro: Microbiology 11/08/23 09:05 Mucosa - Nasopharyngeal Respiratory Panel (PCR) - Final Radiography Diagnostic Testing: Radiology Impression Echocardiogram 11/07/23 16:37 Interpretation Summary Normal LV size. The left ventricular ejection fraction is 20 %. Mild (1+) eccentric mitral valve insufficiency. Stage 2 diastolic dysfunction. Pulmonary artery systolic pressure is 40 mmHg. Severe hypokinesis of the anterior wall apex and mid inferior and inferior apical wall. The above is consistent with a Takotsubo cardiomyopathy. Contrast injection was performed. Ordering Physician: Leonard Rebollar Performed By: Sandra Hoang MADHAV Rhythm Strip Rhythm Strip: Sinus Tach Rate: 113 Ectopy: None Physical Exam Const alert, oriented x3 and no apparent distress Constitutional Narrative: Pleasant middle-age female, mildly fatigued appearing, otherwise sitting up comfortably in bed, conversing normally, no acute distress. General Appearance: cooperative and comfortable HEENT normocephalic, head/scalp atraumatic, hearing grossly normal bilaterally, nasal mucous membranes and turbinates normal and moist oral mucous membranes Eyes PERRL, EOMs intact bilaterally and conjunctivae normal Neck full ROM Chest inspection of chest normal Resp normal respiratory effort and no use of accessory muscles Resp Narrative: Mildly decreased breath sounds bilaterally throughout. No wheezing or crackles noted. Breathing comfortably on 6 L nasal cannula at rest with good oxygen saturations. Cardio regular rate, regular rhythm, no murmurs and peripheral pulses 2+ throughout GI normal to inspection, nondistended, normoactive bowel sounds, soft to palpation, non-tender and non-distended Back/Spine normal ROM Extremity normal to inspection, full ROM and no pedal edema Skin no rashes or lesions noted Neuro moves all extremities and no focal motor deficits Speech: speech normal Psych mental status grossly normal Assessment & Plan Assessment/Plan (1) Non-ST elevated myocardial infarction: (2) SVT (supraventricular tachycardia): (3) Acute hypoxemic respiratory failure: PLAN: Plan Patient is a 53-year-old female who presented to [facility] ED on 11/07/2023 with worsening headache and worsening dyspnea on exertion. 1. NSTEMI, newly diagnosed HFrEF due to Takotsubo cardiomyopathy ? Cardiology following. Echo on 11/07 showed EF 40%, stage II diastolic dysfunction, severe global hypokinesis of anterior wall apex and mid inferior and inferior apical wall consistent with Takotsubo cardiomyopathy. Left heart cath on 11/08 with no coronary artery disease. Treated with Lasix drip with good urine output and improvement in oxygenation status. Per cardiology, will transition to p.o. Lasix on 11/09. If remains stable on 11/09, likely okay for discharge home. 2. Acute hypoxic respiratory failure, improving ? Pulmonology following. Was placed in the ICU admission given poor oxygenation status suspect due to volume overload, NSTEMI and tachyarrhythmia as noted below. Per pulmonology, appears that respiratory failure is secondary to acute decompensated heart failure. Improved on PAP therapy and with Lasix drip as noted above, transitioned to low-flow nasal cannula on 11/08. Okay for transfer out of the ICU on 11/08. Continue Lasix as noted above. Continue scheduled Atrovent aerosols for now. Will need home oxygen qualification testing prior to discharge. 3. Episode of SVT ? Cardiology following as above. Appeared to be consistent with a narrow complex tachycardia but did not appear to be AVNRT. Started on carvedilol 6.25 mg twice daily on 11/07, patient tolerating without issue. Continue cardiac monitoring. 4. RUFINA ? Creatinine 1.20 on admit, worsened to 1.83 on hospital day 2 and remaining stable at 1.8. Baseline unclear. Creatinine notably remained stable on IV Lasix drip, suspect worsened creatinine is due to a degree of ATN in setting of poor perfusion from new onset HFrEF as noted above. Has had good urine output throughout hospitalization. Continue to monitor BMP and urine output daily. 5. Mild hypokalemia ? Potassium 3.1 on 11/08 after heavy IV diuresis. Replete as needed. Chronic medical conditions: ? COPD not on home oxygen: Continue scheduled Atrovent as noted above. Not on home long-acting inhalers. ? Hypertension: Holding home losartan given RUFINA as noted above. On Coreg and Lasix as noted above. ? Hyperlipidemia: Continue home statin. ? GERD: Continue home PPI. ? Anxiety/depression: Stable. Continue home sertraline, ziprasidone and hydroxyzine. ? Obesity: BMI 31 on admit. Complicates hospital course, care and prognosis. DVT prophylaxis: Therapeutic Lovenox CODE STATUS: Full code, verified Expected disposition: Home, 1 to 2 days Total clinical time spent by myself addressing the patient's medical issues, reviewing all the data, and collaborating with patient's care team: 35 minutes. Charges/Coding Visit Charges Inpatient E&M: 64301 Subs Hosp L2
--- NOTE | 2023-11-09 12:28 | CL.D_ITS ---
Patient Name: RAYMON HAAS Study Date: 11/09/2023 Performing: Silviano Vasquez MD Ht: 64 inches 162.56 cm : 1970 Wt: 180.8 lbs 81.9 kg Age: 53 Gender: female BSA: 1.87 PROCEDURE(S) PERFORMED [id number])[facility] CLINICAL PROFILE AND INDICATIONS Indications: ACS <= 24 hrs Heart Failure: None Stress/Imaging Stress/Image Study Performed: No CAD Presentations: Non-STEMI. Symptom onset Date/Time: 11/07/23 Time Not Available CONCLUSIONS Normal coronary arteries Cardiomyopathy: Takotsubo RECOMMENDATIONS Medical therapy DESCRIPTION OF PROCEDURE The patient arrived to the procedure lab. The risks and benefits of the procedure as well as a full description of our services here and current unavailability of surgical backup were fully explained to the patient and/or their significant other prior to the catheterization. The Timeout was completed, verifying the correct patient and procedure. The patient's procedural site was prepped and draped in the usual fashion. Local anesthetic was given subcutaneously to right radial region with Lidocaine 2%. Using a modified Seldinger technique, and ultrasound guidance,arterial access was obtained via the right radial artery, a 6Fr sheath was inserted. Left Coronary Artery selective angiography was performed in multiple views using a 5 Fr. 4.0 [place] catheter. Right Coronary Artery selective angiography was then performed in multiple views using a 5 Fr. 4.0 [place] catheter.The arterial sheath was pulled and a TR Band was applied for hemostasis CORONARY ANGIOGRAPHY DOMINANCE: Right Dominant LEFT HEART ASSESSMENT Left Ventricular Ejection Fraction: by Echo 15 % Anterior Hypokinesis - Severe. Apical Hypokinesis - Severe. Inferior Mid Hypokinesis - Severe LEFT MAIN: Angiographically normal LEFT ANTERIOR DESCENDING ARTERY: Angiographically normal CIRCUMFLEX ARTERY: Angiographically normal RIGHT CORONARY ARTERY: Angiographically normal COMPLICATIONS No Complications PROCEDURE MEDICATIONS Versed 1 mg IV Fentanyl 50 mcg IV Versed 1 mg IV Oxygen: 6 L/min via nasal cannula Heparin given IA 11/09/2023 10:18:26 Nitro 100 mcg IA 11/09/2023 10:30:50 SUMMARY OF HEMODYNAMIC DATA Time AIR REST ECG 09:34:01 AO 147/62 (96) SA 10:24:12 Signed By Silviano Vasquez MD On 11/09/2023 12:27:55 Silviano Vasquez MD
--- NOTE | 2023-11-09 14:55 | CASEMGMT ---
Addendum entered by Matias Haynes 11/09/23 16:07: [facility] accepts the pt with a SOC date TBD. CM to follow. Original Note: Per Dr. Jara's progress note, the pt may be able to DC home tomorrow (11/09). TC to [facility] and referral made to [facility] for SN. Awaiting return response.
[2023-11-09] MEDS: Carvedilol 6.25 MG Tablet PO (21:34)
[2023-11-09] MEDS: Atorvastatin Calcium 40 MG Tablet PO (21:34)
[2023-11-09] MEDS: Ziprasidone HCl 20 MG Capsule 80 MG PO (21:35)
[2023-11-10] VITALS (7 sets, daily range): BP systolic 104–117; BP diastolic 53–64; PULSE 66–89; RESP 16–18; TEMP 36.1–36.6; O2SAT 83–97; BMI 29.8
--- NOTE | 2023-11-10 02:35 | CPS ---
pt said she's been breathing better all day. RN notified, if spo2 drops pt did agree to use bipap if necessary.
[2023-11-10] MEDS: Acetaminophen 500 MG Tablet 1000 MG PO (06:04)
[2023-11-10] MEDS: proMETHazine 25 MG/ML Syringe IM (06:04)
[2023-11-10 06:43] LABS: Anion Gap 12 (5-15); BUN 52 mg/dL (7-18); Calcium,Total 9.1 mg/dL (8.5-10.1); Chloride 93 mmol/L (98-107); Creatinine, Serum 2.08 mg/dL (0.55-1.02); EST Glomerular Filtration Rate 26 mL/min (>60); Est Glom Filt Rate - Afr Amer 32 mL/min (>60); Estimated Creatinine Clearance 32.01 ml/min; Glucose 121 mg/dL (74-106); Potassium 3.4 mmol/L (3.5-5.1); Sodium Level 133 mmol/L (136-145)
--- NOTE | 2023-11-10 09:51 | CASEMGMT ---
Leonor (CM through [facility]) calls this RN CM. This RN CM updated the manager rn case with the POC at this time.
[2023-11-10] MEDS: Potassium Chloride Oral Tablet 20 MEQ 40 MEQ PO (10:02)
[2023-11-10] MEDS: Carvedilol 6.25 MG Tablet PO (10:02)
[2023-11-10] MEDS: Ziprasidone HCl 20 MG Capsule 40 MG PO (10:02)
[2023-11-10] MEDS: Aspirin E.C. 81 MG Tablet PO (10:02)
[2023-11-10] MEDS: Sertraline 50 MG Tablet PO (10:02)
[2023-11-10] MEDS: Furosemide 40 MG Tablet PO (10:02)
[2023-11-10] MEDS: Pantoprazole Sodium 40 MG Tablet PO (10:02)
[2023-11-10] MEDS: hydrOXYzine PAM 25 MG Capsule 50 MG PO (10:05)
[2023-11-10] MEDS: Ipratropium 0.5 MG/2.5 ML SOLUTION INHALATION (10:46)
--- NOTE | 2023-11-10 11:04 | PCM.DC.SUM ---
Providers Date of Admission: 11/07/23 Date of Discharge: 11/10/23 Primary Care Physician: Dr. Susy Funez MD Consultations 11/07/23 16:54 Consult: Cardiology Routine Consulting Provider: Silviano Vasquez Reason for Consult: NSTEMI EMERGENT Consult: No Notified: Yes Date Notified: 11/07/23 Time Notified: 16:54 Method of Notification: Text 11/08/23 08:05 Consult: Installation Helper / Pulmonary Medicine Routine Consulting Provider: Intensivists/Pulmonary Med Reason for Consult: resp failure EMERGENT Consult: No Notified: Yes Date Notified: 11/08/23 Time Notified: 08:05 Method of Notification: Verbal Reason For Visit: HEADACHE, SHORTNESS OF BREATH WITH EXERTION Diagnosis Discharge Diagnosis (1) Non-ST elevated myocardial infarction: Status: Acute Code(s): I21.4 - Non-ST elevation (NSTEMI) myocardial infarction (2) SVT (supraventricular tachycardia): Status: Acute Code(s): I47.10 - Supraventricular tachycardia, unspecified (3) Acute hypoxemic respiratory failure: Status: Acute Code(s): J96.01 - Acute respiratory failure with hypoxia Medications at Discharge Home Medications albuterol sulfate 90 mcg/actuation aerosol inhaler 2 puff inhalation Q6H PRN COPD 02/02/19 ziprasidone HCl 40 mg capsule 40 mg PO DAILY antipsychotic 04/21/20 atorvastatin 40 mg tablet 40 mg PO QHS cholesterol 11/07/23 hydroxyzine pamoate 100 mg capsule 100 mg PO BID Anxiety 11/07/23 losartan 100 mg tablet 100 mg PO DAILY blood pressure 11/07/23 omeprazole 40 mg capsule,delayed release 40 mg PO DAILY GERD 11/07/23 sertraline 50 mg tablet 50 mg PO DAILY Mood 11/07/23 ziprasidone HCl 80 mg capsule 80 mg PO QHS antipsychotic 11/07/23 carvedilol 6.25 mg tablet 6.25 mg PO BID 30 days #60 tabs 11/10/23 furosemide 40 mg tablet 40 mg PO DAILY 30 days #30 tabs 11/10/23 potassium chloride 20 mEq tablet,extended release 20 meq PO DAILY 30 days #30 tabs 11/10/23 Hospital Course Operations None Procedures Cardiac catheterization, EKG, Transthoracic echo and - (CTA chest, chest x-ray, CT brain without contrast) Summary of Care Provided Minutes Spent on Discharge: 35 Hospital Course: Patient is a 53-year-old female who presented to [facility] ED on 11/07/2023 with worsening headache and worsening dyspnea on exertion. Hospital course as noted below. Patient discharged home on supplemental oxygen in stable condition on 11/09. 1. NSTEMI, newly diagnosed HFrEF due to Takotsubo cardiomyopathy ? Cardiology followED. Echo on 11/07 showed EF 20%, stage II diastolic dysfunction, severe global hypokinesis of anterior wall apex and mid inferior and inferior apical wall consistent with Takotsubo cardiomyopathy. Left heart cath on 11/08 with no coronary artery disease. Treated with Lasix drip with good urine output and improvement in oxygenation status, transitioned to p.o. Lasix 40 mg on 11/09 and will continue this on discharge. Potassium supplement also prescribed on discharge. Started on Coreg and will continue on discharge as noted below. Outpatient follow-up with cardiology in about 2 weeks. 2. Acute hypoxic respiratory failure, improving ? Pulmonology followed. Was placed in the ICU on admission given poor oxygenation status suspect due to volume overload, NSTEMI and tachyarrhythmia as noted below. Per pulmonology, appears that respiratory failure was secondary to acute decompensated heart failure. Improved on PAP therapy and with Lasix drip as noted above, transitioned to low-flow nasal cannula on 11/08. Okay for transfer out of the ICU on 11/08. Oxygen qualification testing done on day of discharge and patient did qualify for supplemental oxygen both at rest and with exertion, prescription sent. Treated with scheduled Atrovent aerosols while inpatient, okay to resume albuterol as needed on discharge. 3. Episode of SVT ? Cardiology followed as above. Appeared to be consistent with a narrow complex tachycardia but did not appear to be AVNRT. Started on carvedilol 6.25 mg twice daily on 11/07, patient tolerated without issue. No further episodes while admitted. Continue Coreg on discharge. 4. RUFINA ? Creatinine 1.20 on admit, worsened to 1.83 on hospital day 2. Baseline unclear. Suspect worsened creatinine is due to a degree of ATN in setting of poor perfusion from new onset HFrEF as noted above. Had good urine output throughout hospitalization. Creatinine 2.0 on day of discharge, suspected due to heavy diuresis as noted above. Discharging on p.o. Lasix as noted above. Recommend repeat BMP in 5 to 7 days postdischarge. 5. Hypokalemia ? Potassium 3.1 on 11/08 after heavy IV diuresis. Repleted as needed while inpatient. Discharged on potassium supplement at 20 mEq daily along with lasix as noted above. Chronic medical conditions: ? COPD not on home oxygen: Continue scheduled Atrovent as noted above. Not on home long-acting inhalers. ? Hypertension: Holding home losartan given RUFINA as noted above, will continue to hold on discharge. On Coreg and Lasix as noted above. ? Hyperlipidemia: Continue home statin. ? GERD: Continue home PPI. ? Anxiety/depression: Stable. Continue home sertraline, ziprasidone and hydroxyzine. ? Obesity: BMI 31 on admit. Complicates hospital course, care and prognosis. Total clinical time spent by myself addressing the patient's medical issues, reviewing all the data, and collaborating with patient's care team: 35 minutes. Physical Exam Const alert, oriented x3 and no apparent distress Constitutional Narrative: Pleasant middle-age female, mildly fatigued appearing, otherwise sitting up comfortably in bed, conversing normally, no acute distress. General Appearance: cooperative and comfortable HEENT normocephalic, head/scalp atraumatic, hearing grossly normal bilaterally, nasal mucous membranes and turbinates normal and moist oral mucous membranes Eyes PERRL, EOMs intact bilaterally and conjunctivae normal Neck full ROM Chest inspection of chest normal Resp normal respiratory effort and no use of accessory muscles Resp Narrative: Mildly decreased breath sounds bilaterally throughout. No wheezing or crackles noted. Breathing comfortably on 2 L nasal cannula at rest with good oxygen saturations. Stable. Cardio regular rate, regular rhythm, no murmurs and peripheral pulses 2+ throughout GI normal to inspection, nondistended, normoactive bowel sounds, soft to palpation, non-tender and non-distended Back/Spine normal ROM Extremity normal to inspection, full ROM and no pedal edema Skin no rashes or lesions noted Neuro moves all extremities and no focal motor deficits Speech: speech normal Psych mental status grossly normal Weight / BMI Weight Weight: 78.88 kg Body Mass Index (BMI) 29.8 ABG / Lab / Microbiology Data 11/09/23 05:45 11/10/23 05:52 Laboratory: Laboratory Results - last 24 hr 11/10/23 05:52: Sodium 133 L, Potassium 3.4 L, Chloride 93 L, Carbon Dioxide 28.0, Anion Gap 12, BUN 52 H, Creatinine 2.08 H, Estim Creat Clear Calc 32.01, Est GFR (MDRD) Af Amer 32 L, Est GFR (MDRD) Non-Af 26 L, BUN/Creatinine Ratio 25.0 H, Glucose 121 H, Calcium 9.1 Microbiology: Microbiology 11/08/23 09:05 Mucosa - Nasopharyngeal Respiratory Panel (PCR) - Final Meaningful Use Info Meaningful Use Meaningful Use Diagnoses (Choose all that apply): CHF CHF QUAN/ARB ordered at discharge?: No Reason QUAN/ARB not ordered?: Worsening renal function Documented LVEF (%): 20 Ischemic Stroke Statin Dosing Therapy Reference: STATIN DOSE THERAPY REFERENCE: * Patients > 75 years receive moderate or high dose statin therapy. * Patients 75 years or YOUNGER should receive HIGH intensity statin dose unless contraindicated. You will be required to document reason for non-treatment if statin daily dose does not meet guidelines. HIGH DOSE STATIN THERAPY DAILY Atorvastatin > than or = to 40 mg Rosuvastatin > than or = to 20 mg Amlodipine + Atorvastatin > than or = to 2.5/40 mg Ezetimibe + Simvastatin 10/80 mg Simvastatin 80mg Discharge Plan Admission Admit Date/Time: 11/07/23 15:35 Primary Reason for Your Visit: Headache and shortness of breath on exertion Attending Provider: Uriel Jara Primary Care Provider: Susy Funez Consulting Providers: Leonard Rebollar; Kd Balderrama; Silviano Vasquez Instructions Additional Instructions / Restrictions: Please start taking carvedilol twice daily, Lasix daily and the potassium supplement daily as noted below. Continue your other home medications as normal. Follow-up with cardiology as scheduled below. Wear oxygen as needed to maintain an oxygen level greater than 90%. Discharge Orders/Prescriptions Prescriptions: New furosemide 40 mg Tablet 40 mg PO DAILY 30 Days Qty: 30 2RF carvedilol 6.25 mg Tablet 6.25 mg PO BID 30 Days Qty: 60 2RF potassium chloride 20 mEq tablet extended release 20 meq PO DAILY 30 Days Qty: 30 0RF Continued albuterol sulfate 1 INHALER inhaler 2 puff inhalation Q6H PRN (Reason: COPD) ziprasidone HCl 40 MG capsule 40 mg PO DAILY atorvastatin 40 mg tablet 40 mg PO QHS omeprazole 40 mg capsule,delayed release(DR/EC) 40 mg PO DAILY hydroxyzine pamoate 100 mg capsule 100 mg PO BID ziprasidone HCl 80 mg capsule 80 mg PO QHS losartan 100 mg tablet 100 mg PO DAILY sertraline 50 mg tablet 50 mg PO DAILY Referrals / Follow Up: Susy Funez MD [Primary Care Provider] - Garrick Bonilla NP, FARM FIELD MANAGER-C [Med Staff - [facility]] - 11/27/23 10:00 am Disposition Disposition (needs filled in before D/C Order can be placed): Home, Self Care Charges/Coding Visit Charges Inpatient E&M: 05706 Disch Hosp >30min
--- NOTE | 2023-11-10 12:10 | PCM.HOSP.N ---
Hospitalist Note I have reviewed the oxygen testing, and this patient qualifies for the home equipment and portability. The patient is mobile in the home and the community.
--- NOTE | 2023-11-10 12:26 | PN.CARD_ITS ---
<Statement entered by Sujey Arauz MD - 11/10/23 16:32> Pt seen & evaluated w/VON. I personally interviewed & exam the pt. I was involved in all aspects of pt's orders, interpretation of results & treatment Subjective Subjective Patient seen and examined today. She is not short of breath. She does not have any chest pain. She does feel better than when she came in. Objective Data Vital Signs: Vital Signs Temp Pulse Resp BP Pulse Ox O2 Del Method O2 Flow Rate 97 F L 89 17 117/64 83 Room Air 2 11/10/23 08:55 11/10/23 11:13 11/10/23 11:13 11/10/23 10:01 11/10/23 09:48 11/10/23 09:47 11/10/23 09:48 FiO2 4 11/09/23 11:00 Oxygen Flow Rate (L/min) [ 3 AMBULATING with Oxygen #2] Oxygen Flow Rate (L/min) [ 2 AMBULATING with Oxygen #1] Oxygen Flow Rate (L/min) [At 2 REST with Oxygen] Oxygen Flow Rate (L/min) 4 Oxygen Delivery Method Room Air Weight: 173 lb 14.4 oz Body Mass Index (BMI) 29.8 Intake & Output: Intake and Output for Last 24 Hours 11/08/23 11/09/23 11/10/23 23:59 23:59 23:59 Intake Total 960 / 960 624.28 / 624.28 Output Total 2250 / 2250 1750 / 1750 Balance -1290 / -1290 -1125.72 / -1125.72 Lab / Micro Data 11/09/23 05:45 11/10/23 05:52 Labs: Laboratory Results - last 24 hr 11/10/23 05:52: Sodium 133 L, Potassium 3.4 L, Chloride 93 L, Carbon Dioxide 28.0, Anion Gap 12, BUN 52 H, Creatinine 2.08 H, Estim Creat Clear Calc 32.01, E st GFR (MDRD) Af Amer 32 L, Est GFR (MDRD) Non-Af 26 L, BUN/Creatinine Ratio 25.0 H, Glucose 121 H, Calcium 9.1 Rhythm Strip Rhythm Strip: Sinus Tach Rate: 113 Ectopy: None Cardiology Labs/Tests 11/10/23 05:52: Sodium 133 L, Potassium 3.4 L, Chloride 93 L, Carbon Dioxide 28.0, Anion Gap 12, BUN 52 H, Creatinine 2.08 H, Est GFR (MDRD) Af Amer 32 L, E st GFR (MDRD) Non-Af 26 L, BUN/Creatinine Ratio 25.0 H, Glucose 121 H, Calcium 9.1 Rhythm: Sinus rhythm Physical Exam Const alert, oriented x3 and no apparent distress General Appearance: cooperative HEENT hearing grossly normal bilaterally Head and Scalp: atraumatic Eyes EOMs intact bilaterally Neck General: normal visual inspection Chest inspection of chest normal and palpation of chest normal Resp normal respiratory effort Auscultation: diminished lung sounds Cardio regular rate, regular rhythm, S1 normal heart sound and S2 normal heart sound Jugular Venous Distention: JVD GI normal to inspection, nondistended, normoactive bowel sounds Extremity normal capillary refill and no pedal edema Peripheral Pulses: Yes pulses 2+ throughout and femoral pulses present Skin no rashes or lesions noted Neuro oriented x3 and CN's II-XII intact bilaterally Psych Appearance: grossly normal and appropriate Assessment & Plan Assessment/Plan (1) Takotsubo cardiomyopathy: (2) Elevated troponin: (3) SVT (supraventricular tachycardia): PLAN: Plan * Reviewed echocardiogram and heart cath with patient. She does have evidence of Takotsubo cardiomyopathy. She will continue with her medical management of carvedilol and Lasix. Ideally would like to start her on Entresto, Farxiga and spironolactone however her renal function is elevated today. May need to consider doing this on an outpatient basis with following her kidney function closely. Would like for her to repeat a BMP prior to her office visit with us. Will plan on following up with patient on an outpatient basis. Will then plan on repeating an echocardiogram in 2 to 3 months to reassess her LV function. * Patient has not had any further evidence of SVT. 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 She will continue with her current dose of carvedilol. Charges/Coding Multi Select Codes Visit Charges Visit Charges: 58919 Subs Hosp L2
--- NOTE | 2023-11-10 12:52 | CASEMGMT ---
Patient has order for discharge. Patient qualifies for home oxygen, script received. Patient was setup with [facility], HENRY العراقي updated with discharge, start of care planned for Monday. HENRY العراقي in to updated regarding [facility] and home oxygen. Patient states she prefers [employer]. Patient denies further needs at discharge. Patient had no further questions or concerns. HENRY العراقي sent referral to [employer] via [facility] and portable tank provided from [facility].
--- NOTE | 2023-11-10 13:04 | PHA.DC_ITS ---
Pharmacy [facility] has performed discharge medication reconciliation and counseling for this patient. The patient's discharge medication list was reviewed for discrepancies and discrepancies were resolved. The patient was counseled on the following discharge medications and changes in medications for homegoing were reviewed. The Reason for Use, instructions for use, and potential side effects were reviewed for all new medications. The patient's questions regarding all of their medications were answered. 1. Carvedilol 6.25 mg PO BID 2. Furosemide 40 mg PO daily 3. Potassium 20 mEq PO daily The patient was able to verbally demonstrate an understanding of their discharge medications. The patient was counselled on new medications by pharmacy technician infusion Darío. Medications at Discharge Home Medications albuterol sulfate 90 mcg/actuation aerosol inhaler 2 puff inhalation Q6H PRN COPD 02/02/19 ziprasidone HCl 40 mg capsule 40 mg PO DAILY antipsychotic 04/21/20 atorvastatin 40 mg tablet 40 mg PO QHS cholesterol 11/07/23 hydroxyzine pamoate 100 mg capsule 100 mg PO BID Anxiety 11/07/23 losartan 100 mg tablet 100 mg PO DAILY blood pressure 11/07/23 omeprazole 40 mg capsule,delayed release 40 mg PO DAILY GERD 11/07/23 sertraline 50 mg tablet 50 mg PO DAILY Mood 11/07/23 ziprasidone HCl 80 mg capsule 80 mg PO QHS antipsychotic 11/07/23 carvedilol 6.25 mg tablet 6.25 mg PO BID 30 days #60 tabs 11/10/23 furosemide 40 mg tablet 40 mg PO DAILY 30 days #30 tabs 11/10/23 potassium chloride 20 mEq tablet,extended release 20 meq PO DAILY 30 days #30 tabs 11/10/23
== END 2023-11-10 13:47 | disposition home or self-care (01) | DRG 286 ==
LOC: ED 15:50 → PCU 15:55 → ICU 19:06 → PCU 11-10 10:35 → ICU 11-10 13:52
PROVIDERS: Internal Medicine; Internal Medicine Critical Care Medicine; Admitting Provider Internal Medicine; Emergency Provider Emergency Medicine; PCP Internal Medicine; Visit Provider Hospitalist
DX: I47.10 Supraventricular tachycardia, unspecified (principal); I50.23 Acute on chronic systolic (congestive) heart failure; J96.01 Acute respiratory failure with hypoxia; N17.0 Acute kidney failure with tubular necrosis; F31.9 Bipolar disorder, unspecified; J44.9 Chronic obstructive pulmonary disease, unspecified; I11.0 Hypertensive heart disease with heart failure; E78.5 Hyperlipidemia, unspecified; I45.10 Unspecified right bundle-branch block; G43.709 Chronic migraine without aura, not intractable, without status migrainosus; F41.9 Anxiety disorder, unspecified; E87.6 Hypokalemia; K21.9 Gastro-esophageal reflux disease without esophagitis; E66.9 Obesity, unspecified; Z87.891 Personal history of nicotine dependence; Z51.5 Encounter for palliative care; Z79.01 Long term (current) use of anticoagulants; Z66 Do not resuscitate; Z68.31 Body mass index [BMI] 31.0-31.9, adult
CPT/HCPCS: 36415; 36600; 70450; 71045; 71275; 80048; 80053; 80061; 82803; 83690; 83735; 83880; 84443; 84484; 85025; 85379; 87633; 87641; 93005; 93306; 93454; 94002; 94003; 94640; 94668; 94762; 99152; 99153; 99285; J7030; J7040; P9047; Q9957; Q9967; A4216; C1769; C1894; C8929; J0153; J1940; J2405

== ENCOUNTER → 2023-11-17 | Outpatient (CLI) | payer MEDICARE, SELFPAY ==
[2023-11-17 12:30] LABS: Anion Gap 8 (5-15); BUN 49 mg/dL (7-18); BUN/Creat Ratio 19.6 RATIO (10-20); Calcium,Total 9.3 mg/dL (8.5-10.1); Chloride 97 mmol/L (98-107); EST Glomerular Filtration Rate 21 mL/min (>60); Est Glom Filt Rate - Afr Amer 26 mL/min (>60); Glucose 161 mg/dL (74-106); Potassium 4.4 mmol/L (3.5-5.1); Sodium Level 136 mmol/L (136-145)
== END | disposition home or self-care (01) ==
LOC: LAB 10:43
PROVIDERS: PCP Internal Medicine; Referring Provider Hospitalist; Visit Provider Hospitalist
DX: N17.9 Acute kidney failure, unspecified (principal)
CPT/HCPCS: 36415; 80048

== ENCOUNTER → 2023-12-28 | Outpatient (CLI) | payer MEDICARE, SELFPAY ==
--- NOTE | 2023-12-28 13:48 | ECHOL_ITS ---
Version 2 Reason For Study: TAKOTSUBO SYNDROM, RE-EVALUATE EF Procedure This was a limited 2D transthoracic echocardiogram. Exam performed in department. Left Ventricle Normal LV size. Left ventricular systolic function is normal. The left ventricular ejection fraction is 65 %. No regional wall motion abnormalities noted. Right Ventricle Normal RV size. Normal systolic function. Atria Normal left atrium. Normal right atrium. Tricuspid Valve Normal tricuspid valve. Aortic Valve Trisinus/trileaflet aortic valve. Pulmonic Valve Normal pulmonic valve. Great Vessels Normal aortic root. The pulmonary artery is normal size. Inferior vena cava collapse with respiration. Pericardium/Pleural No pericardial effusion. MMode/2D Measurements & Calculations LVIDd: 5.1 cm IVSd: 0.82 cm Ao root diam: 3.2 cm LVIDs: 3.5 cm LVPWd: 0.96 cm FS: 30.2 % LAV(MOD-bp): 34.8 ml LVAd ap4: 21.8 cm2 SV(MOD-sp4): 33.1 ml LAV(MOD-bp) Indexed: 18.6 ml/m2 LVLd ap4: 7.2 cm LAV(MOD-sp2): 32.1 ml EDV(MOD-sp4): 56.0 ml LAV(MOD-sp4): 32.6 ml EDV(sp4-el): 56.1 ml LVAs ap4: 12.4 cm2 LVLs ap4: 6.0 cm ESV(MOD-sp4): 22.9 ml ESV(sp4-el): 21.8 ml EF(MOD-sp4): 59.1 % EF(sp4-el): 61.2 % SV(sp4-el): 34.3 ml LA dimension(2D): 3.9 cm LA A4 area: 13.5 cm2 ECHO/Echo, Limited Study Interpretation Summary Normal LV size. Left ventricular systolic function is normal. The left ventricular ejection fraction is 65 %. Structurally normal valves. Compared to previous study, the left ventricular sy stolic function has improved.. Ordering Physician: Garrick Bonilla Referring Physician: Susy Funez Performed By: Nubia Jacques, LISANDRO, RVT
== END | disposition home or self-care (01) ==
LOC: CVS 13:46
PROVIDERS: PCP Internal Medicine; Referring Provider Nurse Practitioner Family; Visit Provider Nurse Practitioner Family
DX: I51.81 Takotsubo syndrome (principal); E78.2 Mixed hyperlipidemia
CPT/HCPCS: 93308

== ENCOUNTER 2024-01-10 08:20 | Inpatient (IN) | payer MEDICARE, MEDICAID, SELFPAY ==
[2024-01-10] VITALS (25 sets, daily range): BP systolic 90–161; BP diastolic 51–111; PULSE 75–128; RESP 13–28; TEMP 36.3–36.7; O2SAT 88–100; BMI 31.9
--- NOTE | 2024-01-10 08:26 | RAD_ITS ---
STUDY: X-RAY CHEST REASON FOR EXAM: Female, 53 years old. DYSPNEA TECHNIQUE: Single AP portable view of the chest. COMPARISON: Comparison is made with prior study November 07, 2023. FINDINGS: EKG electrodes are seen. There is evidence of vascular congestion and mild CHF. Blunting of the left costophrenic angle and a questionable left lower lobe infiltrate. Normal size heart. Normal mediastinum and amy. Normal visualized pulmonary arteries. Normal visualized aortic arch and descending thoracic aorta. Normal visualized thoracic spine. Normal visualized ribs, clavicles, and shoulders. There is evidence of a metallic ring at the gastroesophageal junction. RAD/Chest 1 View (Portable) IMPRESSION: Findings suggest a mild degree of CHF with small left pleural effusion and left basilar atelectasis and/or infiltrate. Electronically Signed: Chico Renteria MD at 9:11 EDT ,
--- NOTE | 2024-01-10 08:27 | EKG12_ITS ---
Test Reason : SOB Blood Pressure : / mmHG Vent. Rate : 098 BPM Atrial Rate : 098 BPM P-R Int : 164 ms QRS Dur : 100 ms QT Int : 358 ms P-R-T Axes : 050 000 088 degrees QTc Int : 457 ms Normal sinus rhythm Possible Left atrial enlargement Low voltage QRS Septal infarct , age undetermined Abnormal ECG Confirmed by PRATIMA FRANCO, FRANCO ([id number]), newspaper editor managing TANYA RASHID ([id number]) on 01/12/2024 6:42:02 AM Referred By: Confirmed By:MEHDI ANDUJAR MD
--- NOTE | 2024-01-10 08:28 | ED.VIS.DYS ---
HPI History of Present Illness Chief Complaint: Shortness of Breath Informant: patient and EMS Narrative Narrative: 53-year-old female arriving to the emergency department via EMS with a chief complaint of dyspnea. Patient states that she woke this morning short of breath. She has had no relief with breathing treatments. She chronically wears home oxygen. EMS states that her oxygen tubing was around her neck when they arrived. Upon arrival in the emergency department the patient was noted to be 88%. Patient states that she has a history of COPD/asthma. She states that she had a heart attack several months ago but had a normal heart catheterization. Patient denies any recent change in cough or fever. She notes that she has been on BiPAP before which helped her and is wondering if she could use that now. Patient noted to be pale and when asked states that she has not noticed a change in her color denies any blood loss or black or tarry stools. A brief review of the chart shows that the patient was admitted in October with congestive heart failure. On 11/07 echocardiogram showed an ejection fraction of 20% and apical changes consistent with Takotsubo's cardiomyopathy. 11/08 patient underwent heart catheterization with no evidence of coronary artery disease. She was noted to have a supraventricular tachycardia that was not consistent with AVNRT [facility] Medical History Takotsubo cardiomyopathy Bipolar disorder Anxiety Depression Osteoarthritis Kidney stones Hx of gastroesophageal reflux (GERD) Smoker BiPAP (biphasic positive airway pressure) dependence Asthma Myocardial infarct Chest pain Stroke/cerebrovascular accident Migraines Seizures Ulcerative colitis Hypertension COPD (chronic obstructive pulmonary disease) Home Medications ?Medication ?Instructions ?Recorded ?Last Taken ?Type albuterol sulfate 90 mcg/actuation 2 puff inhalation Q6H PRN COPD 02/02/19 11/06/23 History aerosol inhaler atorvastatin 40 mg tablet 40 mg PO QHS cholesterol 11/07/23 Unknown History hydroxyzine pamoate 100 mg capsule 100 mg PO BID Anxiety 11/07/23 11/06/23 History omeprazole 40 mg capsule,delayed 40 mg PO DAILY GERD 11/07/23 11/06/23 History release sertraline 50 mg tablet 50 mg PO DAILY Mood 11/07/23 11/06/23 History ziprasidone HCl 80 mg capsule 80 mg PO QHS antipsychotic 11/07/23 11/06/23 History carvedilol 6.25 mg tablet 6.25 mg PO BID 30 days #60 tabs 11/10/23 Unknown Rx losartan 50 mg tablet 50 mg PO QDAY 11/27/23 Unknown History ziprasidone HCl 40 mg capsule 40 mg PO DAILY antipsychotic 11/27/23 Unknown History furosemide 40 mg tablet 40 mg PO DAILY PRN edema #90 tabs 12/28/23 Unknown Rx potassium chloride 20 mEq 20 meq PO DAILY PRN When taking 12/28/23 Unknown Rx tablet,extended release Lasix 90 days #90 tabs Allergy/AdvReac Type Severity Reaction Status Date / Time meperidine (From Demerol) Allergy Other Verified 11/27/23 10:20 metronidazole (From Flagyl) Allergy Hives Verified 11/27/23 10:20 oxycodone (From Percocet) Allergy Hives Verified 11/27/23 10:20 Penicillins Allergy Hives Verified 11/27/23 10:20 aspirin AdvReac Vomiting Verified 11/27/23 10:20 Family History Mother Myocardial infarction Brother Myocardial infarction Surgical History Hx of hysterectomy History of appendectomy Social History Smoking Status: Former smoker alcohol intake: never substance use type: does not use caffeine: Yes (occasionally) ROS ROS ED Constitutional Constitutional ED: Denies chills, fever(s) or weight loss Eyes Eyes: Denies change in vision or diplopia ENT ENT ED: Denies ear pain, rhinorrhea or sore throat Cardiovascular Cardiovascular: Denies chest pain, orthopnea, palpitations or racing heartbeat Respiratory/Chest Respiratory/Chest: Reports cough, dyspnea and dyspnea on exertion; Denies orthopnea Gastrointestinal Gastrointestinal: Denies abdominal pain, diarrhea, nausea or vomiting Genitourinary Genitourinary ED: Denies dysuria, hematuria or urinary frequency Musculoskeletal Musculoskeletal: Denies arthralgias or myalgias Integumentary Denies abscess or rash Neurologic Neurologic: Denies headache(s) or weakness Psychiatric Psychiatric: Denies anxiety, depression, suicidal ideation or suicidal thoughts Endocrine Endocrinology: Denies polydipsia, polyphagia or polyuria Allergic/Immunologic Allergic/Immunologic ED: Denies mouth swelling, tongue swelling or urticaria EXAM Physical Exam Const Vital Signs: 01/10/24 08:21 01/10/24 08:24 01/10/24 08:27 Temperature 97.6 F L 97.8 F Temperature Source Temporal Temporal Pulse Rate 128 H 127 H Respiratory Rate 28 H 28 H Respiratory Effort Respiratory Depth Respiratory Pattern Blood Pressure 161/111 H 161/111 H Blood Pressure Mean 127 127 Pulse Ox 88 92 90 Oxygen Delivery Method Room Air Nasal Cannula Nasal Cannula Oxygen Flow Rate (L/min) 4 4 01/10/24 08:30 01/10/24 08:32 01/10/24 08:47 Temperature 97.9 F 97.9 F Temperature Source Temporal Temporal Pulse Rate 117 H 92 Respiratory Rate 28 H 20 H Respiratory Effort Short of Breath Respiratory Depth Shallow Respiratory Pattern Tachypnea Blood Pressure 161/111 H 114/70 Blood Pressure Mean 127 84 Pulse Ox 91 92 Oxygen Delivery Method Nasal Cannula Nasal Cannula Nasal Cannula Oxygen Flow Rate (L/min) 4 5 6 01/10/24 09:09 01/10/24 09:57 01/10/24 11:00 Temperature 97.4 F L Temperature Source Oral Pulse Rate 81 88 92 Respiratory Rate 13 15 20 H Respiratory Effort Respiratory Depth Respiratory Pattern Blood Pressure 106/72 90/67 95/68 Blood Pressure Mean 83 74 77 Pulse Ox 93 94 95 Oxygen Delivery Method Nasal Cannula Nasal Cannula Nasal Cannula Oxygen Flow Rate (L/min) 6 6 6 01/10/24 11:08 01/10/24 11:08 01/10/24 11:14 Temperature Temperature Source Pulse Rate 89 90 Respiratory Rate 16 18 Respiratory Effort Respiratory Depth Respiratory Pattern Normal Blood Pressure 100/74 Blood Pressure Mean 82 Pulse Ox 99 Oxygen Delivery Method Nasal Cannula Oxygen Flow Rate (L/min) 4 Positive well nourished and well developed Constitutional Narrative: Patient is sitting in a tripod like position. She has short shallow breathing. General Appearance ED: well developed HEENT Reports normocephalic, head/scalp atraumatic and moist mucous membranes HEENT Narrative: Patient has perioral pallor slight paleness of the conjunctiva Eyes PERRL and EOMs intact bilaterally Neck no lymphadenopathy, supple and no JVD Resp Resp Narrative: Patient is tachypneic with short shallow breaths. She has a faint expiratory wheeze at the bases. She is speaking in 3-4 word sentences Cardio regular rate, regular rhythm and no murmurs Rate: tachycardic GI normal to inspection, nondistended, normoactive bowel sounds and non-tender Palpation: soft Back/Spine no CVA tenderness and normal ROM Extremity normal to inspection General Extremety ED: Negative for edema General Extremity: Negative for edema Neuro oriented x3 and CN's II-XII intact bilaterally Sensorium / Orientation: alert Motor Exam: strength 5/5 throughout Psych mental status grossly normal Mood & Affect: Negative for depressed or tearful Skin no rashes or lesions noted and no wounds MDM MDM MDM Narrative Medical decision making narrative: Differential diagnosis includes but not limited to CHF COPD pulmonary embolism anemia pleural effusion pneumonia pneumothorax ACS. Patient did not want BiPAP as she started to calm her breathing down. pH 7.269 with a pCO2 of 30 bicarbonate of 13.8 PaO2 59.5 on 6 L. However she is on the monitor she is showing oxygen saturation about 91% to 93% on 5 L. My independent interpretation of the chest x-ray is left lower effusion with possible infiltrate. White count slightly elevated 13.7 hemoglobin is 13.9 coags are normal troponin is 20 BNP 206 normal LFTs creatinine 1.32 normal sodium and potassium. BUN is 9. CTA of the chest was obtained which demonstrates no pulmonary embolism. Emphysematous changes were seen. There is some patchy changes in the upper lobes of questionable significance. Patient's work of breathing significantly improved and her oxygen requirements decreased. Unfortunately her blood pressure decreased. IV fluids were started but before significant bolus was achieved patient's blood pressure started to improve. She did not appear hypotensive or dehydrated on examination. Patient was doing well and then she had another episode in which we noticed that her pulse ox dropped she became hypotensive tachycardic diaphoretic and was significantly nauseated. Zofran was applied and a repeat EKG obtained. I do not see any significant changes on the EKG compared to the original. Shortly after the Zofran the patient improved again. Her abdominal exam continues to be benign. We are going to continue to administer fluids. I think the patient would benefit from inpatient observation as the exact etiology of her symptoms has not been fully elucidated. History & Record Review Discussion w/independent historian: EMS personnel and Patient Lab Data Attestation: I reviewed the patient's lab results. Labs: Laboratory Results - last 24 hr 01/10/24 08:45 WBC 13.7 H RBC 4.59 Hgb 13.9 Hct 44.0 MCV 95.9 MCH 30.3 MCHC 31.6 L RDW Std Deviation 51.8 H RDW Coeff of Joseph 15.0 H Plt Count 288 MPV 10.2 Immature Gran % (Auto) 0.500 Neut % (Auto) 27.7 L Lymph % (Auto) 61.6 H [place] % (Auto) 5.6 Eos % (Auto) 3.9 Baso % (Auto) 0.7 Absolute Neuts (auto) 3.8 Absolute Lymphs (auto) 8.41 H Nucleated RBC % 0 Differential Comment SCANNED PT 13.6 INR 1.0 APTT 23.3 L Sodium 140 Potassium 4.0 Chloride 109 H Carbon Dioxide 18.0 L Anion Gap 13 BUN 9 Creatinine 1.32 H Estim Creat Clear Calc 51.24 Est GFR (MDRD) Af Amer 54 L Est GFR (MDRD) Non-Af 45 L BUN/Creatinine Ratio 6.8 L Glucose 275 H Lactic Acid 8.1 H* Calcium 8.7 Total Bilirubin 0.40 Direct Bilirubin 0.14 AST 20 ALT 22 Alkaline Phosphatase 103 Troponin I High Sens 25 B-Natriuretic Peptide 206.5 H Total Protein 6.4 Albumin 2.9 L Globulin 3.5 ABG Data ABG results: ABG 01/10/24 08:46 Specimen Type ART Sample Site L Brach pH 7.27 L Bicarbonate Actual 13.8 L Total CO2 15 Base Excess -13 L O2 Saturation 87 L O2 % 6.0 ABG pCO2 30.0 L ABG pO2 60 L Lester Test Positive O2 Delivery Device Cannula Vent Mode Not entered Radiography Diagnostic Testing: Clinical Impression(s) from Imaging Studies Chest X-Ray 01/10/24 08:26 IMPRESSION: Findings suggest a mild degree of CHF with small left pleural effusion and left basilar atelectasis and/or infiltrate. Electronically Signed: Chico Renteria MD at 9:11 EDT , Chest CTA 01/10/24 09:23 IMPRESSION: No evidence of pulmonary embolism. Emphysematous changes with evidence of scarring although there has been improvement as compared to prior study. Electronically Signed: Chico Renteria MD at 10:31 EDT , EKG Initial EKG: Attestation: I personally reviewed and interpreted this EKG as follows: Comments: Normal sinus rhythm ventricular rate of [address] elevation noted. Follow-up EKG: Attestation: I personally reviewed and interpreted this EKG as follows: Comments: Sinus tachycardia ventricular rate of 103 bpm Management Discussion w/another healthcare provider: Hospitalist Discharge Plan Dx/Rx/DC Orders Clinical Impression: Acute respiratory distress, Acute hypoxic respiratory failure, Acute hypotension Disposition Disposition: Acute Care Hospital [facility]
[2024-01-10 08:51] LABS: Allen Test Positive; Base Excess -13 mmol/L (-2 to +2); Bicarbonate 13.8 mmol/L (22-26); Blood Gas Specimen Type ART; Mode Not entered; O2 Delivery Device Cannula; PO2 60 mmHG (75-100); SITE L Brach; SO2 87 % (95-99); Total Carbon Dioxide 15 mmol/L; pH 7.27 (7.35-7.45)
[2024-01-10 08:59] LABS: Absolute Lymphocyte Count 8.41 X10^3/uL (0.83-4.51); Absolute Neutrophil Count 3.8 X10^3/uL (2.0-7.7); Basophil# 0.09 X10^3/uL; Basophil% 0.7 % (0-1); Eosinophil# 0.53 X10^3/uL; Eosinophils% 3.9 % (0-5); Hemoglobin 13.9 g/dL (12.0-15.0); Lymphocyte # 8.41 X10^3/ul (0.83-4.51); Lymphocyte % 61.6 % (19-41); Mean Corp Hgb Conc 31.6 g/dL (32-36); Mean Corpuscular Hgb 30.3 pg (27.0-32.0); Mean Corpuscular Volume 95.9 fL (81-99); Mean Platelet Vol. 10.2 fl (6.2-12.0); Monocyte# 0.77 X10^3/uL; Monocyte% 5.6 % (0-10); NRBC Flagged by Analyzer 0 % (0-5); Neutrophil # 3.79 X10^3/uL (2.7-7.7); Neutrophil % 27.7 % (47-70); POSITIVE DIFFERENTIAL YES; POSITIVE MORPHOLOGY YES; Platelet Count 288 K/mm3 (150-450); RBC Distribution Width SD 51.8 fl (35.1-43.9); Red Blood Count 4.59 M/mm3 (4.2-5.4); White Blood Count 13.7 K/mm3 (4.4-11.0)
[2024-01-10 09:04] LABS: Differential Indicated SCAN CRITERIA MET
[2024-01-10 09:08] LABS: Prothrombin Time (Protime)PT. 13.6 SECONDS (11.7-14.9)
[2024-01-10 09:10] LABS: Partial Thromboplast Time 23.3 Seconds (24.1-36.2)
[2024-01-10 09:19] LABS: AST(SGOT) 20 U/L (15-37); Alanine Aminotransfer ALT/SGPT 22 U/L (13-56); Albumin, Serum 2.9 g/dL (3.2-5.0); Alkaline Phosphatase 103 U/L (45-117); Anion Gap 13 (5-15); BUN 9 mg/dL (7-18); BUN/Creat Ratio 6.8 RATIO (10-20); Bilirubin, Direct 0.14 mg/dL (0.00-0.30); Calcium,Total 8.7 mg/dL (8.5-10.1); Chloride 109 mmol/L (98-107); Creatinine, Serum 1.32 mg/dL (0.55-1.02); EST Glomerular Filtration Rate 45 mL/min (>60); Est Glom Filt Rate - Afr Amer 54 mL/min (>60); Estimated Creatinine Clearance 51.24 ml/min; Globulin 3.5 g/dL (2.2-4.2); Glucose 275 mg/dL (74-106); Protein, Total 6.4 g/dL (6.4-8.2); Sodium Level 140 mmol/L (136-145); Troponin-I HS 25 pg/mL (3.0-54.0)
--- NOTE | 2024-01-10 09:23 | CT_ITS ---
STUDY: CTA CHEST REASON FOR EXAM: Female, 53 years old. Pulmonary embolism. Shortness of breath. Elevated white cell count. Emphysema and COPD. RADIATION DOSAGE (If Supplied By Facility): CTDIvol = ( 10.05 ) mGy, DLP = ( 464.63 ) mGycm TECHNIQUE: The examination was performed with the intravenous administration of IV 100mL Isovue-370. Post-processing of the angiographic images was performed, with multiplanar reformation and 3D reconstruction. Individualized dose optimization techniques were used for this CT. COMPARISON: Comparison is made with prior study dated November 07, 2023. FINDINGS: Normal enhancement of the main pulmonary artery and right and left pulmonary arteries. Normal enhancement of the bilateral peripheral pulmonary arteries. There is no demonstrated pulmonary embolism. Normal thoracic aorta and visualized great vessels. There is no demonstrated aortic dissection. Coronary artery calcification. Normal mediastinum. Normal hilar regions. Normal visualized trachea and bronchi. Hyperinflation. Emphysematous changes with evidence of scarring at the lung bases as well as in the upper lobes. There has been improvement as compared to prior study. There is evidence of bronchiectasis in the lower lobes. Patchy areas of groundglass appearance in the upper lobes superimposed on the chronic interstitial scarring. Normal pleura. Normal chest wall structures. There are degenerative changes of thoracic spine. Normal visualized upper abdomen. CT/CTA Chest W/WO Contrast IMPRESSION: No evidence of pulmonary embolism. Emphysematous changes with evidence of scarring although there has been improvement as compared to prior study. Electronically Signed: Chico Renteria MD at 10:31 EDT ,
--- NOTE | 2024-01-10 09:26 | ED.RN ---
PT BP 91/59, DR. BENJAMIN AWARE
[2024-01-10 09:30] LABS: BNP,B-Type NATRIURETIC PEPTIDE 206.5 pg/mL (0-100)
[2024-01-10 09:44] LABS: Lactic Acid 8.1 mmol/L (0.4-1.9)
--- NOTE | 2024-01-10 10:03 | NURSING ---
DR. BENJAMIN AWARE OF THIS PT BEING POTENTIAL FLUID RES. SPESIS. NO FLUIDS ORDERED AT THIS TIME PER DR. BENJAMIN
[2024-01-10 10:19] LABS: Differential Comment SCANNED
[2024-01-10] MEDS: MethylPREDNISolone 125 MG/2 ML Vial IV (10:53)
[2024-01-10] MEDS: 0.9% Normal Saline (1000mL) 1,000 ML 999 ML IV ×2 (10:53→11:56)
[2024-01-10] MEDS: Ipratropium/Albuterol Sulfate 3 ML AMPUL.NEB INHALATION ×4 (11:05→23:49)
--- NOTE | 2024-01-10 11:08 | CPS ---
decreased o2 to 4L NC at this time
[2024-01-10] MEDS: Ondansetron 4 MG/2 ML Vial IV (11:27)
--- NOTE | 2024-01-10 11:27 | EKG12_ITS ---
Test Reason : REPEAT Blood Pressure : / mmHG Vent. Rate : 103 BPM Atrial Rate : 103 BPM P-R Int : 150 ms QRS Dur : 088 ms QT Int : 356 ms P-R-T Axes : 056 048 080 degrees QTc Int : 466 ms Sinus tachycardia Possible Left atrial enlargement Borderline ECG Confirmed by PRATIMA FRANCO, FRANCO ([id number]), editor dictionary TANYA RASHID ([id number]) on 01/12/2024 6:43:42 AM Referred By: Confirmed By:MEHDI ANDUJAR MD
--- NOTE | 2024-01-10 11:40 | HP.PCM.HOS_ITS ---
HPI - General General Date of Admission: 01/10/24 Date of Service: 01/10/24 Chief Complaint: Shortness of breath HPI Narrative RAYMON HAAS, is a 53 F who presents who presented with shortness of breath. Patient has history of Takotsubo cardiomyopathy manage 2 months prior to her admission. She was apparently in her usual state of health till the morning of her admission when she woke up with significant shortness of breath. Patient also did experience of wheezing as well as nonproductive cough. Denied any subjective fever and chills. She called the EMS and was found to be hypoxic was. Was subsequently transferred to the emergency department. Patient was noted to be pale and hypoxic. ABGs demonstrated acidosis mainly metabolic, patient was found to have lactic acidosis of 7 CTA of the chest was negative for PE or any infiltrate. Patient hypoxia did improve on nasal cannula. Subsequently admitted to monitored bed for subsequent evaluation [facility] Medical History Takotsubo cardiomyopathy Bipolar disorder Anxiety Depression Osteoarthritis Kidney stones Hx of gastroesophageal reflux (GERD) Smoker BiPAP (biphasic positive airway pressure) dependence Asthma Myocardial infarct Chest pain Stroke/cerebrovascular accident Migraines Seizures Ulcerative colitis Hypertension COPD (chronic obstructive pulmonary disease) Home Medications ?Medication ?Instructions ?Recorded ?Last Taken ?Type albuterol sulfate 90 mcg/actuation 2 puff inhalation Q6H PRN COPD 02/02/19 01/09/24 History aerosol inhaler atorvastatin 40 mg tablet 40 mg PO DAILY cholesterol 11/07/23 01/09/24 History hydroxyzine pamoate 100 mg capsule 100 mg PO BID Anxiety 11/07/23 01/09/24 History omeprazole 40 mg capsule,delayed 40 mg PO DAILY GERD 11/07/23 01/09/24 History release sertraline 50 mg tablet 75 mg PO DAILY Mood 11/07/23 01/09/24 History ziprasidone HCl 80 mg capsule 80 mg PO QHS antipsychotic 11/07/23 01/09/24 History carvedilol 6.25 mg tablet 6.25 mg PO BID 30 days #60 tabs 11/10/23 01/09/24 Rx losartan 50 mg tablet 50 mg PO QDAY 11/27/23 01/09/24 History ziprasidone HCl 40 mg capsule 40 mg PO DAILY antipsychotic 11/27/23 01/09/24 History furosemide 40 mg tablet 40 mg PO DAILY PRN edema #90 tabs 12/28/23 01/09/24 Rx albuterol sulfate 2.5 mg/3 mL 2.5 mg inhalation Q6H PRN wheezing 01/10/24 01/09/24 History (0.083 %) solution for nebulization fluticasone 100 mcg-salmeterol 50 1 ea inhalation BID 01/10/24 01/09/24 History mcg/dose blistr powdr for inhalation Allergy/AdvReac Type Severity Reaction Status Date / Time meperidine (From Demerol) Allergy Other Verified 11/27/23 10:20 metronidazole (From Flagyl) Allergy Hives Verified 11/27/23 10:20 oxycodone (From Percocet) Allergy Hives Verified 11/27/23 10:20 Penicillins Allergy Hives Verified 11/27/23 10:20 aspirin AdvReac Vomiting Verified 11/27/23 10:20 Family History Mother Myocardial infarction Brother Myocardial infarction Surgical History Hx of hysterectomy History of appendectomy Social History Smoking Status: Former smoker alcohol intake: never substance use type: does not use caffeine: Yes (occasionally) ROS ROS Narrative GENERAL: denies fever, chills, night sweats, weight loss, anorexia HEENT: denies headache, sinus congestion, or drainage, dysphagia RESPIRATORY: cough, shortness of breath, dyspnea on exertion CARDIAC: denies chest pain, palpitations, orthopnea, PND GASTROINTESTINAL: denies abdominal pain, nausea, vomiting, melena, GENITOURINARY: denies dysuria, urgency, frequency, heamaturia EXTREMITY: denies swelling MUSCULOSKELETAL: denies current joint pain or tenderness NEUROLOGIC: denies focal numbness, weakness, tingling HEMATOLOGIC: denies easy bruising and/or hemorrhage INTEGUMENT: denies rashes PSYCHIATRIC: denies suicidal or homicidal ideation Vital Signs Vital Signs Vital Signs: 01/10/24 08:21 01/10/24 08:24 01/10/24 08:27 Temperature 97.6 F L 97.8 F Temperature Source Temporal Temporal Pulse Rate 128 H 127 H Respiratory Rate 28 H 28 H Respiratory Effort Respiratory Depth Respiratory Pattern Blood Pressure 161/111 H 161/111 H Blood Pressure Mean 127 127 Pulse Ox 88 92 90 Oxygen Delivery Method Room Air Nasal Cannula Nasal Cannula Oxygen Flow Rate (L/min) 4 4 01/10/24 08:30 01/10/24 08:32 01/10/24 08:47 Temperature 97.9 F 97.9 F Temperature Source Temporal Temporal Pulse Rate 117 H 92 Respiratory Rate 28 H 20 H Respiratory Effort Short of Breath Respiratory Depth Shallow Respiratory Pattern Tachypnea Blood Pressure 161/111 H 114/70 Blood Pressure Mean 127 84 Pulse Ox 91 92 Oxygen Delivery Method Nasal Cannula Nasal Cannula Nasal Cannula Oxygen Flow Rate (L/min) 4 5 6 01/10/24 09:09 01/10/24 09:57 01/10/24 11:00 Temperature 97.4 F L Temperature Source Oral Pulse Rate 81 88 92 Respiratory Rate 13 15 20 H Respiratory Effort Respiratory Depth Respiratory Pattern Blood Pressure 106/72 90/67 95/68 Blood Pressure Mean 83 74 77 Pulse Ox 93 94 95 Oxygen Delivery Method Nasal Cannula Nasal Cannula Nasal Cannula Oxygen Flow Rate (L/min) 6 6 6 01/10/24 11:08 01/10/24 11:08 01/10/24 11:14 Temperature Temperature Source Pulse Rate 89 90 Respiratory Rate 16 18 Respiratory Effort Respiratory Depth Respiratory Pattern Normal Blood Pressure 100/74 Blood Pressure Mean 82 Pulse Ox 99 Oxygen Delivery Method Nasal Cannula Oxygen Flow Rate (L/min) 4 Weight Weight: 84.5 kg Body Mass Index (BMI) 31.9 Physical Exam Narrative GENERAL: Patient appears ill looking HEENT: Atraumatic; normocephalic EYES; Anicteric, Normal Conjunctiva NECK; supple, normal thyroid, RESPIRATORY: Diminished to auscultation CARDIOVASCULAR: Regular S1 S2, GI: soft, normoactive bowel sounds, : No Renal angle tenderness; EXTREMITIES: No edema, no clubbing, MUSCULOSKELETAL: no muscle wasting NEURO: Awake; no lateralizing signs. SKIN: No Rash PSYCH; Flat affect Results Lab / Micro Data 01/10/24 08:45 01/10/24 08:45 Labs: Laboratory Results - last 24 hr 01/10/24 08:45: WBC 13.7 H, RBC 4.59, Hgb 13.9, Hct 44.0, MCV 95.9, MCH 30.3, M CHC 31.6 L, RDW Std Deviation 51.8 H, RDW Coeff of Joseph 15.0 H, Plt Count 288, MPV 10.2, Immature Gran % (Auto) 0.500, Neut % (Auto) 27.7 L, Lymph % (Auto) 61.6 H, [place] % (Auto) 5.6, Eos % (Auto) 3.9, Baso % (Auto) 0.7, Absolute Neuts (auto) 3.8, Absolute Lymphs (auto) 8.41 H, Nucleated RBC % 0, Differential Comment SCANNED, PT 13.6, INR 1.0, APTT 23.3 L, Sodium 140, Potassium 4.0, C hloride 109 H, Carbon Dioxide 18.0 L, Anion Gap 13, BUN 9, Creatinine 1.32 H, Estim Creat Clear Calc 51.24, Est GFR (MDRD) Af Amer 54 L, Est GFR (MDRD) Non-Af 45 L, BUN/Creatinine Ratio 6.8 L, Glucose 275 H, Lactic Acid 8.1 H*, Calcium 8.7, Total Bilirubin 0.40, Direct Bilirubin 0.14, AST 20, ALT 22, Alkaline Phosphatase 103, Troponin I High Sens 25, B-Natriuretic Peptide 206.5 H, Total Protein 6.4, Albumin 2.9 L, Globulin 3.5 Micro: Microbiology 01/10/24 10:42 Mucosa - Nose SARS-CoV-2, Influenza & RSV (PCR) - Final 01/10/24 08:30 Mucosa - Nose SARS-CoV-2, Influenza & RSV (PCR) - Final ABG Data ABG results: ABG 01/10/24 08:46 Specimen Type ART Sample Site L Brach pH 7.27 L Bicarbonate Actual 13.8 L Total CO2 15 Base Excess -13 L O2 Saturation 87 L O2 % 6.0 ABG pCO2 30.0 L ABG pO2 60 L Lester Test Positive O2 Delivery Device Cannula Vent Mode Not entered Imaging Radiology Impression Chest X-Ray 01/10/24 08:26 IMPRESSION: Findings suggest a mild degree of CHF with small left pleural effusion and left basilar atelectasis and/or infiltrate. Electronically Signed: Chico Renteria MD at 9:11 EDT , Chest CTA 01/10/24 09:23 IMPRESSION: No evidence of pulmonary embolism. Emphysematous changes with evidence of scarring although there has been improvement as compared to prior study. Electronically Signed: Chico Renteria MD at 10:31 EDT , Assessment & Plan Assessment/Plan (1) Elevated lactic acid level: (2) Metabolic acidosis: (3) Acute hypoxic respiratory failure: PLAN: Plan Patient is a 53-year-old lady who presented with progressive shortness of breath 1. Acute hypoxia ? Suspected to be secondary to COPD with acute exacerbation. Patient admitted to monitored bed placed systemic steroid, antibiotic therapy with doxycycline as well as oxygen via nasal cannula which is currently being titrated to keep saturation greater than 90. As part of her management ordered viral respiratory panel and COVID 2. Lactic acidosis ? Suspected to be secondary to increased work of breathing. Sepsis workup so far negative to date. ABGs obtained on admission demonstrated significant acidosis with pCO2 of 18. As part of patient's workup ordered talk screen to rule out other possible causes of patient acidosis. Patient denied any abdominal pain CT of the abdomen and pelvis was therefore not pursued 3. PSVT ? Patient is on beta-blockers did continue 4. Takotsubo cardiomyopathy ? Echo repeated on 12/28/2023 demonstrated significant recovery with ejection fraction of 65%From an ejection fraction of 20% on 11/07/2023 5. Hypertension ? Blood pressure controlled, home medications continued with dose adjustment as needed 6. Dyslipidemia ?Patient is on statin therapy, continued at home dose 7. Depression with anxiety Patient on sertraline, ziprasidone and hydroxyzine 100 mg nightly at home. 8. DVT prophylaxis ? On enoxaparin Time spent in the patient's overall evaluation,decision-making process, review of diagnostic data, adjustment of management, discussion with other providers, nursing nursing and ancillary staff involved in patient's care documentation, 75Minutes Advance planning; did discuss with the patient and family regarding advanced directives as well as CODE STATUS. Did explain the various scenarios involved ( FULL CODE, DNR CCA, DNR CCA with no intubation, and DNR CC and what each meant) patient elected full code with CPR and intubation if needed. Order was placed. Time spent on discussion 18 minutes. Charges/Coding Multi Select Codes Visit Charges Visit Charges: [address] [place] [id number] Hospitalists' Procedures Procedures: 03591 Advncd Care Plan 30 Min
[2024-01-10] MEDS: Doxycycline 100 MG CAPSULE PO ×2 (12:09→21:19)
--- NOTE | 2024-01-10 12:11 | ED.RN ---
Addendum entered by Vladimir Acuña 01/10/24 12:15: PT SATING AT 91% NOW Original Note: PT WAS PREVIOUSLY ON 4 L WITH A PULSE OX OF 96%, WHEN RESPIRATORY ENTERED ROOM PT AT 1034 PULSE OX WAS AT 87% ON 4 L SO PT WAS PUT ON HIGH FLOW 8 L, NOT STATING AT 91%.
[2024-01-10 12:52] LABS: Reflex Lactate? Y
[2024-01-10] MEDS: proCHLORPERazine 10 MG/2 ML Vial 5 MG IV (13:11)
[2024-01-10] MEDS: 0.9% Saline Lock 10 ML Syringe IV (13:11)
[2024-01-10 13:54] LABS: Lactic Acid 3.3 mmol/L (0.4-1.9)
[2024-01-10 20:32] LABS: Mucous, Urine 0 SEEN /hpf (<or=2+); Red Blood Cells-Urine 0 SEEN /hpf (0-5)
[2024-01-10 20:34] LABS: Color, Urine Yellow (Yellow); Glucose, Dipstick Normal (Normal); Ketone-Dipstick 15 mg/dl (Negative); Leukocyte Esterase-Dipstick Negative /ul (Negative); Nitrite-Dipstick Negative (Negative); Occult Blood-Urine 25 /ul (Negative); Protein-Dipstick 30 mg/dl (Negative); Urine Bilirubin Dipstick Negative (Negative); Urine Clarity Sl. Cloudy (Clear); Urine Urobilinogen Normal (Normal)
[2024-01-10 20:40] LABS: White Blood Cells 0-5 SEEN /hpf (0-5)
[2024-01-10 20:41] LABS: Bacteria RARE /hpf (None Seen); Squamous Epithelial Cells - UA 0-5 SEEN /hpf (5-10)
[2024-01-10] MEDS: Carvedilol 6.25 MG Tablet PO (21:19)
[2024-01-10] MEDS: Ziprasidone HCl 20 MG Capsule 80 MG PO (21:19)
[2024-01-10] MEDS: Atorvastatin Calcium 40 MG Tablet PO (21:24)
[2024-01-10] MEDS: hydrOXYzine PAM 25 MG Capsule 100 MG PO (21:24)
[2024-01-10 21:40] LABS: Lactic Acid 1.6 mmol/L (0.4-1.9)
[2024-01-10 23:37] LABS: Amphetamine Urine NEGATIVE (<1000 ng/mL); Barbiturate Urine NEGATIVE (< 200 ng/mL); Benzodiazepine Urine NEGATIVE (< 200 ng/mL); Cocaine Urine NEGATIVE (< 300 ng/mL); Ecstacy Urine NEGATIVE (< 500 ng/mL); Methadone Urine NEGATIVE (< 300 ng/mL); Opiates Urine NEGATIVE (< 300 ng/mL); PCP Urine NEGATIVE (< 25 ng/mL); THC Urine POSITIVE (< 50 ng/mL); Vista UDS pH Range 5
[2024-01-11 04:00] VITALS: BP 109/59; PULSE 85; RESP 17; TEMP 37.1; O2SAT 94
[2024-01-11 04:53] VITALS: BMI 32.1
[2024-01-11 07:07] LABS: Absolute Lymphocyte Count 1.18 X10^3/uL (0.83-4.51); Absolute Neutrophil Count 15.5 X10^3/uL (2.0-7.7); Basophil# 0.01 X10^3/uL; Basophil% 0.1 % (0-1); Hematocrit 35.5 % (37-47); Hemoglobin 11.7 g/dL (12.0-15.0); Lymphocyte # 1.18 X10^3/ul (0.83-4.51); Lymphocyte % 6.9 % (19-41); Mean Corpuscular Hgb 30.6 pg (27.0-32.0); Mean Corpuscular Volume 92.9 fL (81-99); Mean Platelet Vol. 10.7 fl (6.2-12.0); Monocyte# 0.47 X10^3/uL; Monocyte% 2.7 % (0-10); NRBC Flagged by Analyzer 0 % (0-5); Neutrophil # 15.47 X10^3/uL (2.7-7.7); Neutrophil % 89.9 % (47-70); Platelet Count 225 K/mm3 (150-450); RBC Distribution Width CV 15.2 % (11.6-14.6); RBC Distribution Width SD 51.3 fl (35.1-43.9); Red Blood Count 3.82 M/mm3 (4.2-5.4); White Blood Count 17.2 K/mm3 (4.4-11.0)
--- NOTE | 2024-01-11 07:39 | PCM.PN.HOSP ---
Reason for Visit Reason for Visit: Diagnoses Acidosis, unspecified (01/10/24) Acute respiratory failure with hypoxia (01/10/24) Other specified abnormal findings of blood chemistry (01/10/24) Subjective Subjective Patient seen clinical condition markedly improved. Back to her home oxygen. Patient will be assessed for possible discharge Objective Data Objective Data Vital Signs: Vital Signs Temp Pulse Resp BP Pulse Ox O2 Del Method O2 Flow Rate 98.8 F 85 17 109/59 L 94 Nasal Cannula 2 01/11/24 04:00 01/11/24 04:00 01/11/24 04:00 01/11/24 04:00 01/11/24 04:00 01/11/24 04:00 01/11/24 04:00 Oxygen Flow Rate (L/min) 2 Oxygen Delivery Method Nasal Cannula Weight: 85 kg Body Mass Index (BMI) 32.1 Intake & Output: Intake and Output for Last 24 Hours 01/09/24 01/10/24 01/11/24 23:59 23:59 23:59 Intake Total 1999 / 1999 Output Total 250 / 250 250 / 250 Balance 1750 / 1750 -250 / -250 Lab / Micro Data 01/11/24 06:36 01/11/24 06:36 Labs: Laboratory Results - last 24 hr 01/10/24 08:45: WBC 13.7 H, RBC 4.59, Hgb 13.9, Hct 44.0, MCV 95.9, MCH 30.3, MCHC 31.6 L, RDW Std Deviation 51.8 H, RDW Coeff of Joseph 15.0 H, Plt Count 288, MPV 10.2, Immature Gran % (Auto) 0.500, Neut % (Auto) 27.7 L, Lymph % (Auto) 61.6 H, Martin % (Auto) 5.6, Eos % (Auto) 3.9, Baso % (Auto) 0.7, Absolute Neuts (auto) 3.8, Absolute Lymphs (auto) 8.41 H, Nucleated RBC % 0, Differential Comment SCANNED, PT 13.6, INR 1.0, APTT 23.3 L, Sodium 140, Potassium 4.0, Chloride 109 H, Carbon Dioxide 18.0 L, Anion Gap 13, BUN 9, Creatinine 1.32 H, Estim Creat Clear Calc 51.24, Est GFR (MDRD) Af Amer 54 L, Est GFR (MDRD) Non-Af 45 L, BUN/Creatinine Ratio 6.8 L, Glucose 275 H, Lactic Acid 8.1 H*, Calcium 8.7, Total Bilirubin 0.40, Direct Bilirubin 0.14, AST 20, ALT 22, Alkaline Phosphatase 103, Troponin I High Sens 25, B-Natriuretic Peptide 206.5 H, Total Protein 6.4, Albumin 2.9 L, Globulin 3.5 01/10/24 13:05: Lactic Acid 3.3 H* 01/10/24 20:10: Lactic Acid 1.6 01/10/24 20:20: Urine Color Yellow, Urine Clarity Sl. Cloudy, Urine pH 6.0, Ur Specific [place] 1.010, Urine Protein 30 H, Urine Glucose (UA) Normal, Urine Ketones 15 H, Urine Occult Blood 25 H, Urine Nitrite Negative, Urine Bilirubin Negative, Urine Urobilinogen Normal, Ur Leukocyte Esterase Negative, Urine RBC 0 SEEN, Urine WBC 0-5 SEEN, Ur Squamous Epith Cells 0-5 SEEN, Urine Bacteria RARE, Urine Mucus 0 SEEN, Urine Opiates Screen NEGATIVE, Urine Methadone Screen NEGATIVE, Ur Barbiturates Screen NEGATIVE, Ur Phencyclidine Scrn NEGATIVE, Ur Amphetamines Screen NEGATIVE, MDMA (Ecstasy) Screen NEGATIVE, U Benzodiazepines Scrn NEGATIVE, Urine Cocaine Screen NEGATIVE, U Cannabinoids Screen POSITIVE H, Ur Drug Screen Comment 01/11/24 06:36: WBC 17.2 H, RBC 3.82 L, Hgb 11.7 L, Hct 35.5 L, MCV 92.9, MCH 30.6, MCHC 33.0, RDW Std Deviation 51.3 H, RDW Coeff of Joseph 15.2 H, Plt Count 225, MPV 10.7, Immature Gran % (Auto) 0.400, Neut % (Auto) 89.9 H, Lymph % (Auto) 6.9 L, Martin % (Auto) 2.7, Eos % (Auto) 0.0, Baso % (Auto) 0.1, Absolute Neuts (auto) 15.5 H, Absolute Lymphs (auto) 1.18, Nucleated RBC % 0 Micro: Microbiology 01/10/24 14:16 Mucosa - Nasopharyngeal Respiratory Panel (PCR) - Final 01/10/24 10:42 Mucosa - Nose SARS-CoV-2, Influenza & RSV (PCR) - Final 01/10/24 08:30 Mucosa - Nose SARS-CoV-2, Influenza & RSV (PCR) - Final ABG Data ABG results: ABG 01/10/24 08:46 Specimen Type ART Sample Site L Brach pH 7.27 L Bicarbonate Actual 13.8 L Total CO2 15 Base Excess -13 L O2 Saturation 87 L O2 % 6.0 ABG pCO2 30.0 L ABG pO2 60 L Lester Test Positive O2 Delivery Device Cannula Vent Mode Not entered Radiography Diagnostic Testing: Radiology Impression Chest X-Ray 01/10/24 08:26 IMPRESSION: Findings suggest a mild degree of CHF with small left pleural effusion and left basilar atelectasis and/or infiltrate. Electronically Signed: Chico Renteria MD at 9:11 EDT , Chest CTA 01/10/24 09:23 IMPRESSION: No evidence of pulmonary embolism. Emphysematous changes with evidence of scarring although there has been improvement as compared to prior study. Electronically Signed: Chico Renteria MD at 10:31 EDT , Physical Exam Narrative GENERAL: Cooperative HEENT: Atraumatic; normocephalic EYES; Anicteric, Normal Conjunctiva NECK; supple, normal thyroid, RESPIRATORY: Diminished to auscultation CARDIOVASCULAR: Regular S1 S2, GI: soft, normoactive bowel sounds, : No Renal angle tenderness; EXTREMITIES: No edema, no clubbing, MUSCULOSKELETAL: no muscle wasting NEURO: Awake; no lateralizing signs. SKIN: No Rash PSYCH; Flat affect Assessment & Plan Assessment/Plan (1) Elevated lactic acid level: (2) Metabolic acidosis: (3) Acute hypoxic respiratory failure: PLAN: Plan Patient is a 53-year-old lady who presented with progressive shortness of breath 1. Acute hypoxia ? Suspected to be secondary to COPD with acute exacerbation. Patient admitted to monitored bed placed systemic steroid, antibiotic therapy with doxycycline as well as oxygen via nasal cannula which is currently being titrated to keep saturation greater than 90. As part of her management ordered viral respiratory panel and COVID ? 01/11/2024 patient viral respiratory panel including COVID and influenza all came back negative. Patient did experience significant improvement in her condition. She was expected to stay for 2 midnight however given her rapid improvement she requested to be discharged home. 2. Lactic acidosis ? Suspected to be secondary to increased work of breathing. Sepsis workup so far negative to date. ABGs obtained on admission demonstrated significant acidosis with pCO2 of 18. As part of patient's workup ordered talk screen to rule out other possible causes of patient acidosis. Patient denied any abdominal pain CT of the abdomen and pelvis was therefore not pursued ? Lactic acidosis secondary to hypoxia resolved. Talk screen came back positive for marijuana counseled on cessation 3. PSVT ? Patient is on beta-blockers did continue 4. Takotsubo cardiomyopathy ? Echo repeated on 12/28/2023 demonstrated significant recovery with ejection fraction of 65%From an ejection fraction of 20% on 11/07/2023 5. Hypertension ? Blood pressure controlled, home medications continued with dose adjustment as needed 6. Dyslipidemia ?Patient is on statin therapy, continued at home dose 7. Depression with anxiety Patient on sertraline, ziprasidone and hydroxyzine 100 mg nightly at home. 8. DVT prophylaxis ? On enoxaparin Time spent in the patient's overall evaluation,decision-making process, review of diagnostic data, adjustment of management, discussion with other providers, nursing nursing and ancillary staff involved in patient's care documentation, 35
[2024-01-11 07:40] VITALS: PULSE 92; RESP 18; O2SAT 96
[2024-01-11] MEDS: Ipratropium/Albuterol Sulfate 3 ML AMPUL.NEB INHALATION ×2 (07:40→11:37)
[2024-01-11 07:41] LABS: Anion Gap 7 (5-15); BUN 14 mg/dL (7-18); BUN/Creat Ratio 12.2 RATIO (10-20); Calcium,Total 8.4 mg/dL (8.5-10.1); Chloride 109 mmol/L (98-107); Creatinine, Serum 1.15 mg/dL (0.55-1.02); EST Glomerular Filtration Rate 52 mL/min (>60); Est Glom Filt Rate - Afr Amer 63 mL/min (>60); Estimated Creatinine Clearance 58.99 ml/min; Glucose 157 mg/dL (74-106); Magnesium 1.9 mg/dL (1.6-2.6); Phosphorus 2.8 mg/dL (2.5-4.9); Potassium 4.1 mmol/L (3.5-5.1); Sodium Level 137 mmol/L (136-145)
--- NOTE | 2024-01-11 09:53 | DS.PCM_ITS ---
Providers Date of Admission: 01/10/24 Date of Discharge: 01/11/24 Primary Care Physician: Dr. Susy Funez MD Reason For Visit: COPD WITH ACUTE EXACERBATION Diagnosis Discharge Diagnosis (1) Elevated lactic acid level: Status: Acute Code(s): R79.89 - Other specified abnormal findings of blood chemistry (2) Metabolic acidosis: Status: Acute Code(s): E87.20 - Acidosis, unspecified (3) Acute hypoxic respiratory failure: Status: Acute Code(s): J96.01 - Acute respiratory failure with hypoxia Plan Patient is a 53-year-old lady who presented with progressive shortness of breath 1. Acute hypoxia ? Suspected to be secondary to COPD with acute exacerbation. Patient admitted to monitored bed placed systemic steroid, antibiotic therapy with doxycycline as well as oxygen via nasal cannula which is currently being titrated to keep saturation greater than 90. As part of her management ordered viral respiratory panel and COVID ? 01/11/2024 patient viral respiratory panel including COVID and influenza all came back negative. Patient did experience significant improvement in her condition. She was expected to stay for 2 midnight however given her rapid improvement she requested to be discharged home. 2. Lactic acidosis ? Suspected to be secondary to increased work of breathing. Sepsis workup so far negative to date. ABGs obtained on admission demonstrated significant acidosis with pCO2 of 18. As part of patient's workup ordered talk screen to rule out other possible causes of patient acidosis. Patient denied any abdominal pain CT of the abdomen and pelvis was therefore not pursued ? Lactic acidosis secondary to hypoxia resolved. Talk screen came back positive for marijuana counseled on cessation 3. PSVT ? Patient is on beta-blockers did continue 4. Takotsubo cardiomyopathy ? Echo repeated on 12/28/2023 demonstrated significant recovery with ejection fraction of 65%From an ejection fraction of 20% on 11/07/2023 5. Hypertension ? Blood pressure controlled, home medications continued with dose adjustment as needed 6. Dyslipidemia ?Patient is on statin therapy, continued at home dose 7. Depression with anxiety Patient on sertraline, ziprasidone and hydroxyzine 100 mg nightly at home. 8. DVT prophylaxis ? On enoxaparin Time spent in the patient's overall evaluation,decision-making process, review of diagnostic data, adjustment of management, discussion with other providers, nursing nursing and ancillary staff involved in patient's care documentation, 35 Medications at Discharge Home Medications albuterol sulfate 90 mcg/actuation aerosol inhaler 2 puff inhalation Q6H PRN COPD 02/02/19 atorvastatin 40 mg tablet 40 mg PO DAILY cholesterol 11/07/23 hydroxyzine pamoate 100 mg capsule 100 mg PO BID Anxiety 11/07/23 omeprazole 40 mg capsule,delayed release 40 mg PO DAILY GERD 11/07/23 sertraline 50 mg tablet 75 mg PO DAILY Mood 11/07/23 ziprasidone HCl 80 mg capsule 80 mg PO QHS antipsychotic 11/07/23 carvedilol 6.25 mg tablet 6.25 mg PO BID 30 days #60 tabs 11/10/23 losartan 50 mg tablet 50 mg PO QDAY 11/27/23 ziprasidone HCl 40 mg capsule 40 mg PO DAILY antipsychotic 11/27/23 furosemide 40 mg tablet 40 mg PO DAILY PRN edema #90 tabs 12/28/23 albuterol sulfate 2.5 mg/3 mL (0.083 %) solution for nebulization 2.5 mg inhalation Q6H PRN wheezing 01/10/24 fluticasone 100 mcg-salmeterol 50 mcg/dose blistr powdr for inhalation 1 ea inhalation BID 01/10/24 doxycycline monohydrate 100 mg capsule 100 mg PO BID 7 days #14 caps 01/11/24 guaifenesin 1,200 mg tablet, extended release 12 hr (Mucus Relief ER) 1,200 mg PO BID #20 tabs 01/11/24 prednisone 20 mg tablet 20 mg PO BID 7 days #14 tabs 01/11/24 Physical Exam Narrative GENERAL: Cooperative HEENT: Atraumatic; normocephalic EYES; Anicteric, Normal Conjunctiva NECK; supple, normal thyroid, RESPIRATORY: Diminished to auscultation CARDIOVASCULAR: Regular S1 S2, GI: soft, normoactive bowel sounds, : No Renal angle tenderness; EXTREMITIES: No edema, no clubbing, MUSCULOSKELETAL: no muscle wasting NEURO: Awake; no lateralizing signs. SKIN: No Rash PSYCH; Flat affect Weight / BMI Weight Weight: 85 kg Body Mass Index (BMI) 32.1 ABG / Lab / Microbiology Data 01/11/24 06:36 01/11/24 06:36 Laboratory: Laboratory Results - last 24 hr 01/10/24 08:45: Differential Comment SCANNED 01/10/24 13:05: Lactic Acid 3.3 H* 08/21/24 20:10: Lactic Acid 1.6 01/10/24 20:20: Urine Color Yellow, Urine Clarity Sl. Cloudy, Urine pH 6.0, Ur Specific [place] 1.010, Urine Protein 30 H, Urine Glucose (UA) Normal, Urine Ketones 15 H, Urine Occult Blood 25 H, Urine Nitrite Negative, Urine Bilirubin Negative, Urine Urobilinogen Normal, Ur Leukocyte Esterase Negative, Urine RBC 0 SEEN, Urine WBC 0-5 SEEN, Ur Squamous Epith Cells 0-5 SEEN, Urine Bacteria RARE, Urine Mucus 0 SEEN, Urine Opiates Screen NEGATIVE, Urine Methadone Screen NEGATIVE, Ur Barbiturates Screen NEGATIVE, Ur Phencyclidine Scrn NEGATIVE, Ur Amphetamines Screen NEGATIVE, MDMA (Ecstasy) Screen NEGATIVE, U Benzodiazepines Scrn NEGATIVE, Urine Cocaine Screen NEGATIVE, U Cannabinoids Screen POSITIVE H, Ur Drug Screen Comment 01/11/24 06:36: WBC 17.2 H, RBC 3.82 L, Hgb 11.7 L, Hct 35.5 L, MCV 92.9, MCH 30.6, MCHC 33.0, RDW Std Deviation 51.3 H, RDW Coeff of Joseph 15.2 H, Plt Count 225, MPV 10.7, Immature Gran % (Auto) 0.400, Neut % (Auto) 89.9 H, Lymph % (Auto) 6.9 L, [place] % (Auto) 2.7, Eos % (Auto) 0.0, Baso % (Auto) 0.1, Absolute Neuts (auto) 15.5 H, Absolute Lymphs (auto) 1.18, Nucleated RBC % 0, Sodium 137, Potassium 4.1, Chloride 109 H, Carbon Dioxide 21.0, Anion Gap 7, BUN 14, C reatinine 1.15 H, Estim Creat Clear Calc 58.99, Est GFR (MDRD) Af Amer 63, Est GFR (MDRD) Non-Af 52 L, BUN/Creatinine Ratio 12.2, Glucose 157 H, Calcium 8.4 L, Phosphorus 2.8, Magnesium 1.9 Microbiology: Microbiology 01/10/24 15:56 Sputum, Expectorated/Coughed Gram Stain - Final 01/10/24 14:16 Mucosa - Nasopharyngeal Respiratory Panel (PCR) - Final 01/10/24 10:42 Mucosa - Nose SARS-CoV-2, Influenza & RSV (PCR) - Final 01/10/24 08:30 Mucosa - Nose SARS-CoV-2, Influenza & RSV (PCR) - Final Radiography Diagnostic Testing: Radiology Impression Chest CTA 01/10/24 09:23 IMPRESSION: No evidence of pulmonary embolism. Emphysematous changes with evidence of scarring although there has been improvement as compared to prior study. Electronically Signed: Chico Renteria MD at 10:31 EDT , D/C Instructions Discharge Diet: No restrictions Discharge Activity: Return to Normal Activity Call your doctor if you observe: Fever of 101 or Higher, Shortness of breath, Fainting spells and Chest pain Meaningful Use Info Meaningful Use Meaningful Use Diagnoses (Choose all that apply): None applicable Ischemic Stroke Statin Dosing Therapy Reference: STATIN DOSE THERAPY REFERENCE: * Patients > 75 years receive moderate or high dose statin therapy. * Patients 75 years or YOUNGER should receive HIGH intensity statin dose unless contraindicated. You will be required to document reason for non-treatment if statin daily dose does not meet guidelines. HIGH DOSE STATIN THERAPY DAILY Atorvastatin > than or = to 40 mg Rosuvastatin > than or = to 20 mg Amlodipine + Atorvastatin > than or = to 2.5/40 mg Ezetimibe + Simvastatin 10/80 mg Simvastatin 80mg Discharge Plan Admission Admit Date/Time: 01/10/24 11:55 Attending Provider: Bruce Burnett Primary Care Provider: Susy Funez Discharge Orders/Prescriptions Prescriptions: New prednisone 20 mg Tablet 20 mg PO BID 7 Days Qty: 14 0RF doxycycline monohydrate 100 mg Capsule 100 mg PO BID 7 Days Qty: 14 0RF guaifenesin [Mucus Relief ER] 1,200 mg tablet extended release 12hr 1,200 mg PO BID Qty: 20 0RF Continued losartan 50 mg tablet 50 mg PO QDAY albuterol sulfate 1 INHALER inhaler 2 puff inhalation Q6H PRN (Reason: COPD) ziprasidone HCl 40 mg capsule 40 mg PO DAILY atorvastatin 40 mg tablet 40 mg PO DAILY omeprazole 40 mg capsule,delayed release(DR/EC) 40 mg PO DAILY hydroxyzine pamoate 100 mg capsule 100 mg PO BID ziprasidone HCl 80 mg capsule 80 mg PO QHS sertraline 50 mg tablet 75 mg PO DAILY carvedilol 6.25 mg Tablet 6.25 mg PO BID 30 Days Qty: 60 2RF albuterol sulfate 2.5 mg /3 mL (0.083 %) solution for nebulization 2.5 mg inhalation Q6H PRN (Reason: wheezing) fluticasone propion-salmeterol 100-50 mcg/dose blister with device 1 ea INHALATION BID furosemide 40 mg tablet 40 mg PO DAILY PRN (Reason: edema) Qty: 90 3RF Patient Comments: PT STATES SHE TAKES EVERY OTHER DAY Referrals / Follow Up: Susy Funez MD [Primary Care Provider] - Within 1 Week Disposition Disposition (needs filled in before D/C Order can be placed): Home, Self Care Charges/Coding Visit Charges Inpatient E&M: 10213 Disch Hosp >30min
[2024-01-11 09:57] VITALS: BP 120/71; PULSE 85; RESP 18; TEMP 36.8; O2SAT 94
[2024-01-11] MEDS: Pantoprazole Sodium 40 MG Tablet PO (10:00)
[2024-01-11] MEDS: Sertraline 50 MG Tablet 75 MG PO (10:00)
[2024-01-11] MEDS: Losartan Potassium 50 MG Tablet PO (10:00)
[2024-01-11] MEDS: Carvedilol 6.25 MG Tablet PO (10:15)
[2024-01-11] MEDS: hydrOXYzine PAM 25 MG Capsule 100 MG PO (10:15)
[2024-01-11] MEDS: Enoxaparin 40 MG/0.4 ML Syringe SC (10:16)
--- NOTE | 2024-01-11 10:28 | CASEMGMT ---
Addendum entered by Eleonora Lopez 01/11/24 11:31: Per pt nurse, pt does not need increase in oxygen rx. Original Note: HENRY العراقي Assessment: Face to Face with pt for initial transition planning/care coordination assessment. HENRY العراقي introduced self and role at [facility], pt voices understanding and consents to assessment. Pt is A&O x4 and answers all questions appropriately at this time. Care providers, pharmacy, and demographics verified/updated. Admitting Dx: COPD with acute exac Strata Score: 3 PCP:[facility] Specialists:VIRAL, cardio Preferred Pharmacy: [facility] Insurance: Aegurvinder SILVA, PETER Prescription Benefit: yes LNOK: Eliazarflash Warner, sig other Living Arrangements: Pt lives alone in a 2nd story apt with 18 steps to enter with a rail. Pt reports she is I in ADL and IADL and denies concerns at home. She states her sig other stays with her often. Transportation: Pt uses insurance for transportation or her sig other. DME:pox, oxygen through [employer], nebulizer HHC/SNF: [facility] HHC in the past, denies SNF stays. Pt states no concerns with going home at time of dc. Pt reports her sig other will take her home and will bring a portable tank upon dc. Pt states no further concerns/needs. CM to follow for increase in oxygen needs. Pt denies need for HHC again. Advised pt to ask CM if any further question/concerns/needs arise, voices understanding. Pt Goal: Home Plan: Home, follow increase in oxygen needs Pradeep FIGUEROA CM
[2024-01-11] MEDS: Doxycycline 100 MG CAPSULE PO (10:45)
[2024-01-11] MEDS: Ziprasidone HCl 20 MG Capsule 40 MG PO (10:45)
[2024-01-11 11:31] VITALS: O2SAT 89; O2SAT 93; O2SAT 95
[2024-01-11 11:37] VITALS: PULSE 92; RESP 17
== END 2024-01-11 13:15 | disposition home or self-care (01) | DRG 208 ==
LOC: ED 11:36 → PCU 12:04
PROVIDERS: Admitting Provider Internal Medicine; Emergency Provider Emergency Medicine; PCP Internal Medicine; Visit Provider Internal Medicine
DX: J44.1 Chronic obstructive pulmonary disease with (acute) exacerbation (principal); A41.3 Sepsis due to Hemophilus influenzae; J96.21 Acute and chronic respiratory failure with hypoxia; I50.33 Acute on chronic diastolic (congestive) heart failure; J14 Pneumonia due to Hemophilus influenzae; I21.A1 Myocardial infarction type 2; I13.0 Hypertensive heart and chronic kidney disease with heart failure and stage 1 through stage 4 chronic kidney disease, or unspecified chronic kidney disease; E87.20 Acidosis, unspecified; I47.19 Other supraventricular tachycardia; F31.9 Bipolar disorder, unspecified; N18.30 Chronic kidney disease, stage 3 unspecified; J44.0 Chronic obstructive pulmonary disease with (acute) lower respiratory infection; E66.9 Obesity, unspecified; E78.5 Hyperlipidemia, unspecified; I25.2 Old myocardial infarction; F41.9 Anxiety disorder, unspecified; K21.9 Gastro-esophageal reflux disease without esophagitis; Z79.51 Long term (current) use of inhaled steroids; Z79.899 Other long term (current) drug therapy; Z87.891 Personal history of nicotine dependence; Z86.73 Personal history of transient ischemic attack (TIA), and cerebral infarction without residual deficits; Z68.31 Body mass index [BMI] 31.0-31.9, adult
CPT/HCPCS: 31500; 31720; 36415; 36569; 36600; 71045; 71250; 71275; 80048; 80053; 80076; 80202; 80307; 81001; 82550; 82803; 83605; 83735; 83880; 84100; 84145; 84478; 84484; 85025; 85027; 85610; 85730; 87040; 87070; 87077; 87205; 87449; 87631; 87633; 93005; 93308; 94002; 94003; 94640; 94668; 94762; 97110; 97116; 97162; 97163; 97165; 97530; 97535; 97802; 97803; 99252; 99284; 99285; Q9967; A4216; G0463; J1940; J2405

== ENCOUNTER 2024-01-12 03:25 | Inpatient (IN) | payer MEDICARE, MEDICAID, SELFPAY ==
[2024-01-12] VITALS (39 sets, daily range): BP systolic 71–180; BP diastolic 46–143; PULSE 60–126; RESP 12–38; TEMP 36.2–37.5; O2SAT 90–100; BMI 31.7; BMI 31.8
[2024-01-12 03:51] LABS: Allen Test Positive; Base Excess -11 mmol/L (-2 to +2); Blood Gas Specimen Type ART; Mode Not entered; O2 Delivery Device BiPAP; PEEP 8; PO2 76 mmHG (75-100); RR 12; SITE L Radial; SO2 93 % (95-99); Total Carbon Dioxide 17 mmol/L; pCO2 35.9 mmHg (35-45); pH 7.26 (7.35-7.45)
--- NOTE | 2024-01-12 04:00 | RAD_ITS ---
INDICATION: SOB EXAMINATION/TECHNIQUE: X-RAY - XR Chest 1 View COMPARISON: January 10, 2024. FINDINGS: LINES/DEVICES: None. LUNGS: Increased patchy hazy reticular opacification right mid and lower lung. Mild diffuse reticular opacification left lower lung. No large effusion. No pneumothorax. MEDIASTINUM AND CARDIOVASCULAR STRUCTURES: Cardiac silhouette not enlarged. Aortic atherosclerosis. BONES AND SOFT TISSUES: Gastroesophageal reflux noted.. RAD/Chest 1 View (Portable) IMPRESSION: Right greater than left reticular interstitial thickening and patchy hazy right mid and lower lung airspace opacification which may represent interstitial and alveolar edema or right lung pneumonia with mild underlying bilateral edema in the appropriate setting. Correlate with exam.. Electronically Signed: Rahul Red MD at 4:41 EDT ,
[2024-01-12 04:05] LABS: Absolute Lymphocyte Count 1.27 X10^3/uL (0.83-4.51); Absolute Neutrophil Count 20.7 X10^3/uL (2.0-7.7); Basophil# 0.04 X10^3/uL; Basophil% 0.2 % (0-1); Hematocrit 38.7 % (37-47); Hemoglobin 12.5 g/dL (12.0-15.0); Lymphocyte # 1.27 X10^3/ul (0.83-4.51); Lymphocyte % 5.5 % (19-41); Mean Corp Hgb Conc 32.3 g/dL (32-36); Mean Corpuscular Hgb 30.8 pg (27.0-32.0); Mean Corpuscular Volume 95.3 fL (81-99); Mean Platelet Vol. 11.7 fl (6.2-12.0); Monocyte# 0.68 X10^3/uL; NRBC Flagged by Analyzer 0 % (0-5); Neutrophil % 90.3 % (47-70); POSITIVE DIFFERENTIAL YES; Platelet Count 277 K/mm3 (150-450); RBC Distribution Width CV 16.5 % (11.6-14.6); RBC Distribution Width SD 55.2 fl (35.1-43.9); Red Blood Count 4.06 M/mm3 (4.2-5.4); White Blood Count 22.9 K/mm3 (4.4-11.0)
[2024-01-12 04:06] LABS: Differential Indicated SCAN CRITERIA MET
--- NOTE | 2024-01-12 04:09 | EDS_ITS ---
HPI History of Present Illness Chief Complaint: Shortness of Breath Informant: patient and EMS Narrative Narrative: 53-year-old female was admitted to the hospital 09 January. She had a repeat echocardiogram due to a recent history of Takotsubo's cardiomyopathy. Ejection fraction is up to 65% on echo on 12/28/23. She was treated for COPD exacerbation with doxycycline for antibiotic. She returns tonight with sudden onset of shortness of breath. Noted to be profoundly hypoxic by EMS into the 70s. She is on BiPAP when I entered the room and can provide limited information. She did have a CTA of her chest 2 days ago that was negative for pulmonary embolism. [facility] Medical History Takotsubo cardiomyopathy Bipolar disorder Anxiety Depression Osteoarthritis Kidney stones Hx of gastroesophageal reflux (GERD) Smoker BiPAP (biphasic positive airway pressure) dependence Asthma Myocardial infarct Chest pain Stroke/cerebrovascular accident Migraines Seizures Ulcerative colitis Hypertension COPD (chronic obstructive pulmonary disease) Home Medications ?Medication ?Instructions ?Recorded ?Last Taken ?Type albuterol sulfate 90 mcg/actuation 2 puff inhalation Q6H PRN COPD 02/02/19 01/09/24 History aerosol inhaler atorvastatin 40 mg tablet 40 mg PO DAILY cholesterol 11/07/23 01/09/24 History hydroxyzine pamoate 100 mg capsule 100 mg PO BID Anxiety 11/07/23 01/09/24 History omeprazole 40 mg capsule,delayed 40 mg PO DAILY GERD 11/07/23 01/09/24 History release sertraline 50 mg tablet 75 mg PO DAILY Mood 11/07/23 01/09/24 History ziprasidone HCl 80 mg capsule 80 mg PO QHS antipsychotic 11/07/23 01/09/24 History carvedilol 6.25 mg tablet 6.25 mg PO BID blood pressure 30 11/10/23 01/09/24 Rx days #60 tabs losartan 50 mg tablet 50 mg PO QDAY blood pressure 11/27/23 01/09/24 History ziprasidone HCl 40 mg capsule 40 mg PO DAILY antipsychotic 11/27/23 01/09/24 History furosemide 40 mg tablet 40 mg PO DAILY PRN edema #90 tabs 12/28/23 01/09/24 Rx albuterol sulfate 2.5 mg/3 mL 2.5 mg inhalation Q6H PRN wheezing 01/10/24 01/09/24 History (0.083 %) solution for nebulization fluticasone 100 mcg-salmeterol 50 1 ea inhalation BID allergies 01/10/24 01/09/24 History mcg/dose blistr powdr for inhalation doxycycline monohydrate 100 mg 100 mg PO BID 7 days #14 caps 01/11/24 Unknown Rx capsule guaifenesin 1,200 mg tablet, 1,200 mg PO BID #20 tabs 01/11/24 Unknown Rx extended release 12 hr (Mucus Relief ER) prednisone 20 mg tablet 20 mg PO BID 7 days #14 tabs 01/11/24 Unknown Rx Allergy/AdvReac Type Severity Reaction Status Date / Time meperidine (From Demerol) Allergy Other Verified 01/12/24 03:27 metronidazole (From Flagyl) Allergy Hives Verified 01/12/24 03:27 oxycodone (From Percocet) Allergy Hives Verified 01/12/24 03:27 Penicillins Allergy Hives Verified 01/12/24 03:27 aspirin AdvReac Vomiting Verified 01/12/24 03:27 Family History Mother Myocardial infarction Brother Myocardial infarction Surgical History Hx of hysterectomy History of appendectomy Social History (Updated 01/12/24 @ 06:[address] Christine Sung DO) Smoking Status: Former smoker how long ago did patient quit smoking: Quit 2 weeks ago per patient report on 01/12/2024 alcohol intake: never substance use type: does not use caffeine: Yes (occasionally) ROS ROS ED Constitutional Constitutional ED: Denies chills, fever(s) or weight loss Eyes Eyes: Denies change in vision or diplopia ENT ENT ED: Denies ear pain, rhinorrhea or sore throat Cardiovascular Cardiovascular: Denies chest pain, orthopnea, palpitations or racing heartbeat Respiratory/Chest Respiratory/Chest: Reports cough, dyspnea and dyspnea on exertion; Denies orthopnea Gastrointestinal Gastrointestinal: Denies abdominal pain, diarrhea, nausea or vomiting Genitourinary Genitourinary ED: Denies dysuria, hematuria or urinary frequency Musculoskeletal Musculoskeletal: Denies arthralgias or myalgias Integumentary Denies abscess or rash Neurologic Neurologic: Denies headache(s) or weakness Psychiatric Psychiatric: Denies anxiety, depression, suicidal ideation or suicidal thoughts Endocrine Endocrinology: Denies polydipsia, polyphagia or polyuria Allergic/Immunologic Allergic/Immunologic ED: Denies mouth swelling, tongue swelling or urticaria EXAM Physical Exam Narrative Exam Narrative: Patient sitting forward on the bed. She is on BiPAP. She nods her head yes or no. Const Vital Signs: 01/12/24 03:27 01/12/24 03:30 01/12/24 03:32 Temperature 97.9 F 97.9 F Temperature Source Temporal Temporal Pulse Rate 122 H 122 H Respiratory Rate 18 18 Respiratory Effort Short of Breath Respiratory Pattern Blood Pressure 180/109 H 180/109 H Blood Pressure Mean 132 132 Pulse Ox 92 92 Oxygen Delivery Method Bi-pap Bi-pap Oxygen Flow Rate (L/min) Fraction of Inspired Oxygen (FIO2) 01/12/24 03:34 01/12/24 03:42 01/12/24 04:12 Temperature Temperature Source Pulse Rate 120 H 105 H Respiratory Rate 22 H 22 H Respiratory Effort Respiratory Pattern Tachypnea Tachypnea Blood Pressure Blood Pressure Mean Pulse Ox 91 92 Oxygen Delivery Method Bi-pap Oxygen Flow Rate (L/min) Fraction of Inspired Oxygen (FIO2) 80 01/12/24 04:12 01/12/24 06:00 01/12/24 06:00 Temperature 98.7 F Temperature Source Pulse Rate 96 87 87 Respiratory Rate 19 H 20 H 20 H Respiratory Effort Respiratory Pattern Normal Blood Pressure 100/71 100/71 Blood Pressure Mean 80 80 Pulse Ox 92 96 96 Oxygen Delivery Method Bi-pap Oxygen Flow Rate (L/min) 96 Fraction of Inspired Oxygen (FIO2) 80 Positive well nourished and well developed General Appearance ED: well developed HEENT Reports normocephalic, head/scalp atraumatic and moist mucous membranes Eyes PERRL and EOMs intact bilaterally Neck no lymphadenopathy, supple and no JVD Resp Resp Narrative: Patient is tachypneic with increased work of breathing. Auscultation: diminished lung sounds bilateral Cardio regular rate, regular rhythm and no murmurs Rate: tachycardic GI normal to inspection, nondistended, normoactive bowel sounds and non-tender Palpation: soft Back/Spine no CVA tenderness and normal ROM Extremity normal to inspection General Extremety ED: Negative for edema General Extremity: Negative for edema Neuro Becky Coma Scale: document GCS findings Spontaneous Obeys Commands Oriented 15 Sensorium / Orientation: alert Motor Exam: strength 5/5 throughout Psych mental status grossly normal Mood & Affect: Negative for depressed or tearful Skin no rashes or lesions noted and no wounds MDM MDM MDM Narrative Medical decision making narrative: Differential diagnosis includes but not limited to pneumonia COPD exacerbation mucous plugging pneumothorax pleural effusion ACS metabolic derangement pulmonary embolism. pH 7.25 pCO2 35.9 PaO2 75.9 bicarbonate 16. This was obtained on FiO2 of 80% My independent interpretation of the chest x-ray is right sided infiltrate new since chest x-ray 2 days ago. White count is 22.9 with a hemoglobin 12.5. Lactic acid is elevated 4.7 creatinine 1.38 with a BUN of 25. Troponin elevated 1005 normal coags. AST of 213 ALT of 90. Normal bilirubin. Patient was placed on BiPAP given another DuoNeb and Solu-Medrol after cultures were obtained Rocephin and azithromycin were ordered. She just had a urine specimen 2 days ago so I did not repeat this. She has also had a CTA of her chest less than 2 days ago which was negative. I think that clinically the patient has pneumonia with respiratory failure. She continues to require 70 to 80% FiO2 on BiPAP. I think that the elevated troponin in the setting of severe respiratory distress and profound hypoxemia is the most likely cause is also contributing to her elevated lactic acid. Hospitalist has requested a noncontrasted chest CT. This will be obtained and reviewed prior to the admission to the ICU. BNP was also obtained and is currently pending. History & Record Review Discussion w/independent historian: EMS personnel and Patient Additional record(s) reviewed:: Prior inpatient record, Prior outpatient record, Prior ED visit and Prior labs Lab Data Attestation: I reviewed the patient's lab results. Labs: Laboratory Results - last 24 hr 01/12/24 01/12/24 01/12/24 03:30 03:33 03:50 WBC 22.9 H RBC 4.06 L Hgb 12.5 Hct 38.7 MCV 95.3 MCH 30.8 MCHC 32.3 RDW Std Deviation 55.2 H RDW Coeff of Joseph 16.5 H Plt Count 277 MPV 11.7 Immature Gran % (Auto) 1.000 H Neut % (Auto) 90.3 H Lymph % (Auto) 5.5 L [place] % (Auto) 3.0 Eos % (Auto) 0.0 Baso % (Auto) 0.2 Absolute Neuts (auto) 20.7 H Absolute Lymphs (auto) 1.27 Nucleated RBC % 0 Differential Comment SCANNED PT Cancelled INR Cancelled APTT Cancelled Sodium Cancelled Potassium Cancelled Chloride Cancelled Carbon Dioxide Cancelled Anion Gap Cancelled BUN Cancelled Creatinine Cancelled Estim Creat Clear Calc Cancelled Est GFR (MDRD) Af Amer Cancelled Est GFR (MDRD) Non-Af Cancelled BUN/Creatinine Ratio Cancelled Glucose Cancelled Lactic Acid 4.7 H* Calcium Cancelled Total Bilirubin Cancelled AST Cancelled ALT Cancelled Alkaline Phosphatase Cancelled Troponin I High Sens Cancelled B-Natriuretic Peptide Cancelled Total Protein Cancelled Albumin Cancelled Globulin Cancelled Albumin/Globulin Ratio Cancelled 01/12/24 01/12/24 04:15 04:17 WBC RBC Hgb Hct MCV MCH MCHC RDW Std Deviation RDW Coeff of Joseph Plt Count MPV Immature Gran % (Auto) Neut % (Auto) Lymph % (Auto) [place] % (Auto) Eos % (Auto) Baso % (Auto) Absolute Neuts (auto) Absolute Lymphs (auto) Nucleated RBC % Differential Comment PT 14.5 INR 1.1 APTT 20.4 L Sodium 140 Potassium 3.9 Chloride 108 H Carbon Dioxide 23.0 Anion Gap 9 BUN 25 H Creatinine 1.38 H Estim Creat Clear Calc 48.81 Est GFR (MDRD) Af Amer 51 L Est GFR (MDRD) Non-Af 42 L BUN/Creatinine Ratio 18.1 Glucose 192 H Lactic Acid Calcium 8.5 Total Bilirubin 0.60 AST 213 H ALT 90 H Alkaline Phosphatase 83 Troponin I High Sens 1005 H* B-Natriuretic Peptide Total Protein 6.1 L Albumin 3.0 L Globulin 3.1 Albumin/Globulin Ratio 1.0 ABG Data ABG results: ABG 01/12/24 03:47 Specimen Type ART Sample Site L Radial pH 7.26 L Bicarbonate Actual 16.0 L Total CO2 17 Base Excess -11 L O2 Saturation 93 L O2 % 80.0 ABG pCO2 35.9 ABG pO2 76 Lester Test Positive Respiration Rate 12 O2 Delivery Device BiPAP Vent Mode Not entered Tidal Volume 450.0 POC PEEP 8 Radiography Diagnostic Testing: Clinical Impression(s) from Imaging Studies Chest X-Ray 01/12/24 04:00 IMPRESSION: Right greater than left reticular interstitial thickening and patchy hazy right mid and lower lung airspace opacification which may represent interstitial and alveolar edema or right lung pneumonia with mild underlying bilateral edema in the appropriate setting. Correlate with exam.. Electronically Signed: Rahul Red MD at 4:41 EDT , Chest CT 01/12/24 05:16 IMPRESSION: Consolidation in the left lower lung suspicious for pneumonia Moderate emphysematous change Lower lung predominant mild interstitial edema with small layering right effusion. Groundglass attenuation within the lower lobes is most consistent with alveolar edema. . Electronically Signed: Rahul Red MD at 6:53 EDT , EKG Initial EKG: Attestation: I personally reviewed and interpreted this EKG as follows: Comments: Normal sinus rhythm ventricular rate of 95 bpm Management Discussion w/another healthcare provider: Hospitalist Critical Care Time Critical Care Time: Yes Critical care time (excluding procedures): 30-74 minutes (35 min), Including time spent:, Discussing w/Patient &/or Family/Bar And Filler Assembler, Discussing w/Consultants, Arranging Admission or Transfer and Performing Direct Patient Care at Bedside Discharge Plan Dx/Rx/DC Orders Clinical Impression: Pneumonia, Acute respiratory distress, Acute hypoxic respiratory failure, Metabolic acidosis, Elevated lactic acid level, Non-ST elevation HI (NSTEMI) Disposition Disposition: [facility]
[2024-01-12] MEDS: Ipratropium/Albuterol Sulfate 3 ML AMPUL.NEB INHALATION ×4 (04:12→22:40)
[2024-01-12] MEDS: MethylPREDNISolone 125 MG/2 ML Vial IV (04:37)
[2024-01-12] MEDS: Ceftriaxone 1 GM/50 ML BAG IV (04:37)
[2024-01-12 04:38] LABS: International Normalized Ratio 1.1; Prothrombin Time (Protime)PT. 14.5 SECONDS (11.7-14.9)
[2024-01-12 04:43] LABS: Partial Thromboplast Time 20.4 Seconds (24.1-36.2)
[2024-01-12 04:54] LABS: AST(SGOT) 213 U/L (15-37); Alanine Aminotransfer ALT/SGPT 90 U/L (13-56); Alkaline Phosphatase 83 U/L (45-117); Anion Gap 9 (5-15); BUN 25 mg/dL (7-18); BUN/Creat Ratio 18.1 RATIO (10-20); Calcium,Total 8.5 mg/dL (8.5-10.1); Chloride 108 mmol/L (98-107); Creatinine, Serum 1.38 mg/dL (0.55-1.02); EST Glomerular Filtration Rate 42 mL/min (>60); Est Glom Filt Rate - Afr Amer 51 mL/min (>60); Estimated Creatinine Clearance 48.81 ml/min; Globulin 3.1 g/dL (2.2-4.2); Glucose 192 mg/dL (74-106); Potassium 3.9 mmol/L (3.5-5.1); Protein, Total 6.1 g/dL (6.4-8.2); Sodium Level 140 mmol/L (136-145); Troponin-I HS 1005 pg/mL (3.0-54.0)
[2024-01-12 04:54] LABS: Lactic Acid 4.7 mmol/L (0.4-1.9)
[2024-01-12 05:06] LABS: Differential Comment SCANNED
--- NOTE | 2024-01-12 05:16 | CT_ITS ---
INDICATION: pneumonia EXAMINATION: CT CHEST WITHOUT CONTRAST - CT Chest W/O Contrast Injection TECHNIQUE: Helically acquired images were obtained of the chest. A radiation dose optimization technique was used for this scan. IV Contrast dosage and agent: None. COMPARISON: CT January 10, 2024.] Chest radiograph January 12, 2024 FINDINGS: LUNGS, PLEURA AND LARGE AIRWAYS: Moderate diffuse centrilobular emphysematous change, most prominent in the upper chest. Trace right effusion. More focal consolidation in the medial left lower lung. Confluent groundglass attenuation within the right mid and lower lung and right lung bases as well as medial left upper lobe and left lung base. Mild bilateral peribronchial thickening with basilar smooth septal thickening. No pneumothorax. THYROID: No thyroid lesions. HEART AND PERICARDIUM: No cardiomegaly. No pericardial effusion. Mild calcified coronary atherosclerosis. VESSELS: Aortic atherosclerosis without ectasia. MEDIASTINUM AND LILI: No mediastinal or hilar adenopathy. Esophagus is unremarkable. No hiatal hernia. UPPER ABDOMEN: Gastroesophageal ring. No acute pathology. BONES: Sequela of old bilateral anterior lateral rib fractures. Suspicious lytic or blastic abnormality. CT/Chest without Contrast IMPRESSION: Consolidation in the left lower lung suspicious for pneumonia Moderate emphysematous change Lower lung predominant mild interstitial edema with small layering right effusion. Groundglass attenuation within the lower lobes is most consistent with alveolar edema. . Electronically Signed: Rahul Red MD at 6:53 EDT ,
[2024-01-12] MEDS: Azithromycin 500 MG in Dextrose 5%-Water (250mL Bag) 250 ML 250 MG IV (05:37)
[2024-01-12] MEDS: 0.9% Normal Saline (1000mL) 1,000 ML 999 ML IV (05:41)
--- NOTE | 2024-01-12 06:01 | PCM.HP.STD ---
HPI - General General Date of Admission: 01/12/24 Date of Service: 01/12/24 Chief Complaint: Shortness of breath HPI Narrative RAYMON HAAS, is a 53 F who presented to the emergency department [facility] early on the a.m. of 01/12/2024 with a chief complaint of shortness of breath. The patient was just admitted here from January 10, 2024 through January 11, 2020 for and went home just hours before she was discharged. She had a recent history of Takotsubo cardiomyopathy but repeat echocardiogram done on 12/28/2023 showed recovery of ejection fraction at 65%. During her hospitalization she was treated for COPD exacerbation with steroids and doxycycline as well as aerosols. She was discharged home on the afternoon of 01/11/2024 on 2 L nasal cannula at rest and with ambulation. It was documented that she was feeling much better and requested to go home. History is limited as she is in somewhat respiratory extremis and on BiPAP however she did indicate that she went home and was doing okay and then woke up acutely in the middle of the night very short of breath. She did indicates she has had a cough with some mild sputum production. At the time of admission on the she had a negative COVID/flu/RSV PCR, negative respiratory viral panel blood cultures are still pending at this time and a sputum culture was obtained but not finalized. Gram stain showed 2+ gram-positive cocci and 2+ white blood cells with no epis. Patient does have a history of tobacco abuse and states she quit about 2 weeks ago. She denies inhaling anything after leaving the hospital and denies any vaping or marijuana use. She was profoundly hypoxic upon EMS arrival with oxygen saturations on 2 L nasal cannula at 70%. She was immediately placed on BiPAP and vital signs after this were temperature of 97.9, heart rate 122, blood pressure 180/109, respiratory rate anywhere between 18 and 22 and oxygen saturations were 92% on 100% BiPAP. She is currently on 80% BiPAP with sats at 91 to 92%. Her CBC does show a leukocytosis with a white count of 22.9 and the left shift with a 90.3% neutrophilia however she has been on steroids. Coags were unremarkable. An ABG was obtained and she was found to have a pH of 7.28 with a pCO2 of 35.9 and a pO2 of 76 on 100% BiPAP. Chemistry panel is essentially unchanged from previous. BUN is 25 with a serum creatinine 1.38 which is in her realm of baseline. Blood glucose level was 192. Lactic acid was 4.7 her AST was 213 and ALT was 90. Initial troponin was 1005. EKG shows no ST-T wave changes concerning for acute ischemia but she does have a mildly prolonged QTc. Chest x-ray shows right greater than left reticular interstitial thickening and patchy hazy mid right and lower lung airspace opacification that appears worse from her chest x-ray 2 days [address] BNP and CT chest were requested but currently pending. Her respiratory distress improved dramatically after being placed on BiPAP but oxygenation is still somewhat tenuous. She is amenable to intubation if required. [facility] Medical History Takotsubo cardiomyopathy Bipolar disorder Anxiety Depression Osteoarthritis Kidney stones Hx of gastroesophageal reflux (GERD) Smoker BiPAP (biphasic positive airway pressure) dependence Asthma Myocardial infarct Chest pain Stroke/cerebrovascular accident Migraines Seizures Ulcerative colitis Hypertension COPD (chronic obstructive pulmonary disease) Home Medications ?Medication ?Instructions ?Recorded ?Last Taken ?Type albuterol sulfate 90 mcg/actuation 2 puff inhalation Q6H PRN COPD 02/02/19 01/09/24 History aerosol inhaler atorvastatin 40 mg tablet 40 mg PO DAILY cholesterol 11/07/23 01/09/24 History hydroxyzine pamoate 100 mg capsule 100 mg PO BID Anxiety 11/07/23 01/09/24 History omeprazole 40 mg capsule,delayed 40 mg PO DAILY GERD 11/07/23 01/09/24 History release sertraline 50 mg tablet 75 mg PO DAILY Mood 11/07/23 01/09/24 History ziprasidone HCl 80 mg capsule 80 mg PO QHS antipsychotic 11/07/23 01/09/24 History carvedilol 6.25 mg tablet 6.25 mg PO BID blood pressure 30 11/10/23 01/09/24 Rx days #60 tabs losartan 50 mg tablet 50 mg PO QDAY blood pressure 11/27/23 01/09/24 History ziprasidone HCl 40 mg capsule 40 mg PO DAILY antipsychotic 11/27/23 01/09/24 History furosemide 40 mg tablet 40 mg PO DAILY PRN edema #90 tabs 12/28/23 01/09/24 Rx albuterol sulfate 2.5 mg/3 mL 2.5 mg inhalation Q6H PRN wheezing 01/10/24 01/09/24 History (0.083 %) solution for nebulization fluticasone 100 mcg-salmeterol 50 1 ea inhalation BID allergies 01/10/24 01/09/24 History mcg/dose blistr powdr for inhalation doxycycline monohydrate 100 mg 100 mg PO BID 7 days #14 caps 01/11/24 Unknown Rx capsule guaifenesin 1,200 mg tablet, 1,200 mg PO BID #20 tabs 01/11/24 Unknown Rx extended release 12 hr (Mucus Relief ER) prednisone 20 mg tablet 20 mg PO BID 7 days #14 tabs 01/11/24 Unknown Rx Allergy/AdvReac Type Severity Reaction Status Date / Time meperidine (From Demerol) Allergy Other Verified 01/12/24 03:27 metronidazole (From Flagyl) Allergy Hives Verified 01/12/24 03:27 oxycodone (From Percocet) Allergy Hives Verified 01/12/24 03:27 Penicillins Allergy Hives Verified 01/12/24 03:27 aspirin AdvReac Vomiting Verified 01/12/24 03:27 Family History Mother Myocardial infarction Brother Myocardial infarction Surgical History Hx of hysterectomy History of appendectomy Social History (Updated 01/12/24 @ 06:[address] Christine Sung DO) Smoking Status: Former smoker how long ago did patient quit smoking: Quit 2 weeks ago per patient report on 01/12/2024 alcohol intake: never substance use type: does not use caffeine: Yes (occasionally) ROS Review of Systems ROS Unobtainable: other Details: Difficult to obtain as patient is on BiPAP and having some issues with respiratory distress Vital Signs Vital Signs Vital Signs: 01/12/24 03:27 01/12/24 03:30 01/12/24 03:32 Temperature 97.9 F 97.9 F Temperature Source Temporal Temporal Pulse Rate 122 H 122 H Respiratory Rate 18 18 Respiratory Effort Short of Breath Respiratory Pattern Blood Pressure 180/109 H 180/109 H Blood Pressure Mean 132 132 Pulse Ox 92 92 Oxygen Delivery Method Bi-pap Bi-pap Fraction of Inspired Oxygen (FIO2) 01/12/24 03:34 01/12/24 03:42 01/12/24 04:12 Temperature Temperature Source Pulse Rate 120 H 105 H Respiratory Rate 22 H 22 H Respiratory Effort Respiratory Pattern Tachypnea Tachypnea Blood Pressure Blood Pressure Mean Pulse Ox 91 92 Oxygen Delivery Method Bi-pap Fraction of Inspired Oxygen (FIO2) 80 01/12/24 04:12 Temperature Temperature Source Pulse Rate 96 Respiratory Rate 19 H Respiratory Effort Respiratory Pattern Normal Blood Pressure Blood Pressure Mean Pulse Ox 92 Oxygen Delivery Method Fraction of Inspired Oxygen (FIO2) 80 Weight Weight: 83.8 kg Body Mass Index (BMI) 31.7 Physical Exam Const alert and well nourished; Negative for no apparent distress, average body habitus or healthy appearing Constitutional Narrative: Obese, middle-aged, white female, lying in right side-lying on BiPAP, sleeping but does awaken, tries to mouth answers but difficult to understand due to BiPAP need and respiratory issues, appears acutely ill General Appearance: cooperative HEENT normocephalic, head/scalp atraumatic and hearing grossly normal bilaterally HEENT Narrative: Edentulous, oropharynx is dry from limited observation Eyes PERRL, EOMs intact bilaterally and conjunctivae normal Eyes Narrative: No scleral icterus Neck no lymphadenopathy and supple Resp no retractions and no use of accessory muscles Resp Narrative: No current signs of extremis on BiPAP at 80%, tachypneic, crackles noted at bilateral bases left worse than right and crackles extend into the mid lung field, apices diminished Auscultation: Negative for rales, rhonchi or wheezes Cardio regular rhythm, S1 normal heart sound, S2 normal heart sound, no murmurs, no rub, no gallops and no clicks Cardio Narrative: Mild tachycardia GI normal to inspection, nondistended, normoactive bowel sounds, soft to palpation and non-tender Extremity no clubbing, cyanosis or edema Extremity Narrative: Pedal and radial pulses are 2+ and bounding Skin no rashes or lesions noted, no wounds, skin turgor normal, no jaundice, no petechiae and no mottling Neuro moves all extremities and no focal motor deficits Psych Psych Narrative: Slightly anxious, eye contact is good and patient tries to answer questions by nodding head Results Lab / Micro Data 01/12/24 03:30 01/12/24 04:15 Labs: Laboratory Results - last 24 hr 01/12/24 03:30: WBC 22.9 H, RBC 4.06 L, Hgb 12.5, Hct 38.7, MCV 95.3, MCH 30.8, MCHC 32.3, RDW Std Deviation 55.2 H, RDW Coeff of Joseph 16.5 H, Plt Count 277, MPV 11.7, Immature Gran % (Auto) 1.000 H, Neut % (Auto) 90.3 H, Lymph % (Auto) 5.5 L, [place] % (Auto) 3.0, Eos % (Auto) 0.0, Baso % (Auto) 0.2, Absolute Neuts (auto) 20.7 H, Absolute Lymphs (auto) 1.27, Nucleated RBC % 0, Differential Comment SCANNED, PT Cancelled, INR Cancelled, APTT Cancelled, Sodium Cancelled, Potassium Cancelled, Chloride Cancelled, Carbon Dioxide Cancelled, Anion Gap Cancelled, BUN Cancelled, Creatinine Cancelled, Estim Creat Clear Calc Cancelled, Est GFR (MDRD) Af Amer Cancelled, Est GFR (MDRD) Non-Af Cancelled, BUN/Creatinine Ratio Cancelled, Glucose Cancelled, Calcium Cancelled, Total Bilirubin Cancelled, AST Cancelled, ALT Cancelled, Alkaline Phosphatase Cancelled, Troponin I High Sens Cancelled, Total Protein Cancelled, Albumin Cancelled, Globulin Cancelled, Albumin/Globulin Ratio Cancelled 01/12/24 03:33: B-Natriuretic Peptide Cancelled 01/12/24 03:50: Lactic Acid 4.7 H* 01/12/24 04:15: Sodium 140, Potassium 3.9, Chloride 108 H, Carbon Dioxide 23.0, Anion Gap 9, BUN 25 H, Creatinine 1.38 H, Estim Creat Clear Calc 48.81, Est GFR (MDRD) Af Amer 51 L, Est GFR (MDRD) Non-Af 42 L, BUN/Creatinine Ratio 18.1, Glucose 192 H, Calcium 8.5, Total Bilirubin 0.60, AST 213 H, ALT 90 H, Alkaline Phosphatase 83, Troponin I High Sens 1005 H*, Total Protein 6.1 L, Albumin 3.0 L, Globulin 3.1, Albumin/Globulin Ratio 1.0 01/12/24 04:17: PT 14.5, INR 1.1, APTT 20.4 L ABG Data ABG results: ABG 01/12/24 03:47 Specimen Type ART Sample Site L Radial pH 7.26 L Bicarbonate Actual 16.0 L Total CO2 17 Base Excess -11 L O2 Saturation 93 L O2 % 80.0 ABG pCO2 35.9 ABG pO2 76 Lester Test Positive Respiration Rate 12 O2 Delivery Device BiPAP Vent Mode Not entered Tidal Volume 450.0 POC PEEP 8 Imaging Radiology Impression Chest X-Ray 01/12/24 04:00 IMPRESSION: Right greater than left reticular interstitial thickening and patchy hazy right mid and lower lung airspace opacification which may represent interstitial and alveolar edema or right lung pneumonia with mild underlying bilateral edema in the appropriate setting. Correlate with exam.. Electronically Signed: Rahul Red MD at 4:41 EDT Reading Location ID and State: [facility] / [place] Tel , Service support , Assessment & Plan Assessment/Plan (1) Elevated lactic acid level: (2) Metabolic acidosis: (3) Acute hypoxic respiratory failure: (4) Transaminitis: (5) Elevated troponin: PLAN: Plan Acute hypoxic respiratory failure -Etiology is unclear however differential includes atypical pneumonia, volume overload, or rapidly progressing pulmonary fibrosis -Sats were 70% on EMS arrival and currently on BiPAP at 80% with oxygen saturations between 91 and 92% -Wean as able -Chest x-ray showed marked abnormality when compared to previous--> appears consistent with ARDS -BNP is pending -CT chest is pending -Check strep pneumo and Legionella antigens -Recent PCR for COVID/flu/RSV and respiratory viral panel are unremarkable -Blood and sputum culture from 820 05/2021 still pending -Check MRSA PCR -In the short-term we will cover with broad-spectrum antibiotics and with severity of respiratory issues will give Levaquin and vancomycin as patient has penicillin allergy -Patient did have a QTc of 500 on presentation so with the use of Levaquin will check EKG in a.m. -Aggressive pulmonary toilet with nebulizers -Solu-Medrol 40 every 8 -Continue home guaifenesin -If BNP is elevated we will give Lasix 40 mg IV push twice daily -I-S and Pep therapy when appropriate -Will admit to ICU and consult pulmonary medicine for assistance -Patient is extremely high risk for requiring mechanical ventilation and this was discussed with her prior to admission -Repeat ABG in 2 hours Troponin elevation with history of Takotsubo cardiomyopathy -Highly suspect this may be related to profound hypoxia -Patient had a normal cardiac catheterization on 11/09/2023 that showed patent coronary arteries at which time she was diagnosed with Takotsubo cardiomyopathy -Will cycle cardiac enzymes -Check echocardiogram for changes in EF compared to recent echo on 12/28/2023 at which time her EF was 65% -Consult cardiology if change in echocardiogram from previous -Will hold off on consult for now as patient just had cardiac catheterization with normal coronary arteries -Continue home carvedilol -Continue home losartan Metabolic acidosis secondary to lactic acidosis -Anticipate quick resolution with improved oxygenation Transaminitis -Etiology is unclear -AST elevation is likely related to troponin elevation -Will repeat in a.m. Hyperlipidemia -Continue home atorvastatin Lactic acidosis -Likely related to profound hypoxia -Meets criteria for sepsis however she does not appear to be septic -Repeat per protocol Seasonal allergies/COPD -Hold home inhaler -Treatment as above GERD -Continue home PPI Anxiety/depression/bipolar disorder -Continue home antipsychotic -Continue home scheduled hydroxyzine Tobacco abuse -Patient states she quit 2 weeks ago -Recommend ongoing cessation Obesity -BMI 31.7 -Recommend weight loss -Complicates treatment, prognosis, outcomes DVT prophylaxis -Subcu Lovenox daily 40 mg CODE STATUS -Full code verified at admission Charges/Coding Visit Charges Inpatient E&M: 45550 Init Hosp L3
--- NOTE | 2024-01-12 07:19 | PN.HOSP_ITS ---
Reason for Visit Reason for Visit: Diagnoses Acidosis, unspecified (01/12/24) Acute respiratory failure with hypoxia (01/12/24) Elevation of levels of liver transaminase levels (01/12/24) Other specified abnormal findings of blood chemistry (01/12/24) Subjective Subjective Patient is a 53-year-old lady who was discharged from the hospital per her request following admission for acute hypoxia secondary to suspected COPD. Presented back to the hospital with worsening respiratory status. Objective Data Objective Data Vital Signs: Vital Signs Temp Pulse Resp BP Pulse Ox O2 Del Method O2 Flow Rate 98.7 F 87 20 H 100/71 96 Bi-pap 96 01/12/24 06:00 01/12/24 06:00 01/12/24 06:00 01/12/24 06:00 01/12/24 06:00 01/12/24 06:00 01/12/24 06:00 FiO2 60 01/12/24 06:45 Oxygen Flow Rate (L/min) 96 Oxygen Delivery Method Bi-pap Weight: 83.8 kg Body Mass Index (BMI) 31.7 Lab / Micro Data 01/12/24 03:30 01/12/24 04:15 Labs: Laboratory Results - last 24 hr 01/12/24 03:30: WBC 22.9 H, RBC 4.06 L, Hgb 12.5, Hct 38.7, MCV 95.3, MCH 30.8, MCHC 32.3, RDW Std Deviation 55.2 H, RDW Coeff of Joseph 16.5 H, Plt Count 277, MPV 11.7, Immature Gran % (Auto) 1.000 H, Neut % (Auto) 90.3 H, Lymph % (Auto) 5.5 L , [place] % (Auto) 3.0, Eos % (Auto) 0.0, Baso % (Auto) 0.2, Absolute Neuts (auto) 20.7 H, Absolute Lymphs (auto) 1.27, Nucleated RBC % 0, Differential Comment SCANNED, PT Cancelled, INR Cancelled, APTT Cancelled, Sodium Cancelled, Potassium Cancelled, Chloride Cancelled, Carbon Dioxide Cancelled, Anion Gap Cancelled, BUN Cancelled, Creatinine Cancelled, Estim Creat Clear Calc Cancelled, Est GFR (MDRD) Af Amer Cancelled, Est GFR (MDRD) Non-Af Cancelled, BUN/Creatinine Ratio Cancelled, Glucose Cancelled, Calcium Cancelled, Total Bilirubin Cancelled, AST Cancelled, ALT Cancelled, Alkaline Phosphatase Cancelled, Troponin I High Sens Cancelled, Total Protein Cancelled, Albumin Cancelled, Globulin Cancelled, Albumin/Globulin Ratio Cancelled 01/12/24 03:33: B-Natriuretic Peptide Cancelled 01/12/24 03:50: Lactic Acid 4.7 H* 01/12/24 04:15: Sodium 140, Potassium 3.9, Chloride 108 H, Carbon Dioxide 23.0, Anion Gap 9, BUN 25 H, Creatinine 1.38 H, Estim Creat Clear Calc 48.81, Est GFR (MDRD) Af Amer 51 L, Est GFR (MDRD) Non-Af 42 L, BUN/Creatinine Ratio 18.1, G lucose 192 H, Calcium 8.5, Total Bilirubin 0.60, AST 213 H, ALT 90 H, Alkaline Phosphatase 83, Troponin I High Sens 1005 H*, Total Protein 6.1 L, Albumin 3.0 L , Globulin 3.1, Albumin/Globulin Ratio 1.0 01/12/24 04:17: PT 14.5, INR 1.1, APTT 20.4 L ABG Data ABG results: ABG 01/12/24 03:47 Specimen Type ART Sample Site L Radial pH 7.26 L Bicarbonate Actual 16.0 L Total CO2 17 Base Excess -11 L O2 Saturation 93 L O2 % 80.0 ABG pCO2 35.9 ABG pO2 76 Lester Test Positive Respiration Rate 12 O2 Delivery Device BiPAP Vent Mode Not entered Tidal Volume 450.0 POC PEEP 8 Radiography Diagnostic Testing: Radiology Impression Chest X-Ray 01/12/24 04:00 IMPRESSION: Right greater than left reticular interstitial thickening and patchy hazy right mid and lower lung airspace opacification which may represent interstitial and alveolar edema or right lung pneumonia with mild underlying bilateral edema in the appropriate setting. Correlate with exam.. Electronically Signed: Rahul Red MD at 4:41 EDT , Chest CT 01/12/24 05:16 IMPRESSION: Consolidation in the left lower lung suspicious for pneumonia Moderate emphysematous change Lower lung predominant mild interstitial edema with small layering right effusion. Groundglass attenuation within the lower lobes is most consistent with alveolar edema. . Electronically Signed: Rahul Red MD at 6:53 EDT , Physical Exam Narrative GENERAL: Patient appears ill looking, on BiPAP HEENT: Atraumatic; normocephalic EYES; Anicteric, Normal Conjunctiva NECK; supple, normal thyroid, RESPIRATORY: Diminished to auscultation CARDIOVASCULAR: Regular S1 S2, GI: soft, normoactive bowel sounds, : No Renal angle tenderness; EXTREMITIES: No edema, no clubbing, MUSCULOSKELETAL: no muscle wasting NEURO: Awake; no lateralizing signs. SKIN: No Rash PSYCH; Flat affect Assessment & Plan Assessment/Plan (1) Acute hypoxic respiratory failure: PLAN: Plan Patient is a 53-year-old lady who was discharged from the hospital per her request following admission for acute hypoxia secondary to suspected COPD. Presented back to the hospital with worsening respiratory status. 1. Acute hypoxic respiratory failure ? Secondary to combination of pneumonia with suspected gram-negative organisms, fluid overload and COPD with acute exacerbation. CT of the chest obtained on admission did show Consolidation in the left lower lung suspicious for pneumonia. Moderate emphysematous change. Lower lung predominant mild interstitial edema with small layering right effusion. Groundglass attenuation within the lower lobes is most consistent with alveolar edema. Patient was placed on noninvasive ventilation BiPAP admitted to the intensive care unit with treatment of the underlying etiology. 2. Pneumonia -With suspected multidrug-resistant organisms., Blood and sputum cultures sent. Vancomycin and levofloxacin in addition to supplemental oxygen via BiPAP 3. Acute on chronic congestive heart failure with preserved ejection fraction Patient has known history of Takotsubo cardiomyopathy ;? Echo repeated on 12/28/2023 demonstrated significant recovery with ejection fraction of 65%From an ejection fraction of 20% on 11/07/2023 CT of the chest obtained demonstrated alveolar edema patient placed on noninvasive ventilation diuretic therapy with furosemide, low-sodium diet, fluid restriction Daily weight strict input and output 4. Sepsis ? Secondary to pneumonia patient has evidence of sepsis in addition to endorgan dysfunction with lactic acidosis and respiratory failure. Patient was managed with broad-spectrum antibiotic therapy per protocol. Patient did not receive 30 mL/kg fluid resuscitation in view of her concomitant congestive heart failure 5. COPD with acute exacerbation ? Patient started on bronchodilator treatment, systemic steroid as well as antibiotic therapy. Patient placed on oxygen titrated to keep saturation greater than 90. 6. PSVT ? Patient is on beta-blockers did continue 7. Hypertension ? Blood pressure controlled, home medications continued with dose adjustment as needed 8. Dyslipidemia ?Patient is on statin therapy, continued at home dose 9. Depression with anxiety Patient on sertraline, ziprasidone and hydroxyzine 100 mg nightly at home. 10. Marijuana use ? Patient counseled on cessation 11. Elevated troponin ? Secondary to myocardial ischemia from patient increased work of breathing. 12. DVT prophylaxis ? On enoxaparin Critical time spent in the patient's overall evaluation,decision-making process, review of diagnostic data, adjustment of management, discussion with other providers, nursing nursing and ancillary staff involved in patient's care documentation, 50 Sepsis Attestation Sepsis Attestation: Agree w/Sepsis Date exam was performed: 01/12/24 Time exam was performed: 09:00 Possible Source of Sepsis: Pulmonary Sepsis Organ Dysfunction Criteria Present: Acute Respiratory Failure (New need for BiPAP/CPAP or MV) and Lactic Acid > 2 mmol/L Fluid Resuscitation Fluid Resuscitation ordered: Fluids not indicated Reason for lesser fluid bolus:: Concern for fluid overload Sepsis Note Date exam was performed: 01/12/24 Time exam was performed: 10:43 Response to fluids: Non Fluid responsive hypotension Charges/Coding Procedures Hospitalists Procedures: 80506 Critical Care 1st Hr
[2024-01-12 08:00] LABS: Reflex Lactate? Y
[2024-01-12] MEDS: 0.9% Saline Lock 10 ML Syringe IV ×6 (08:01→20:20)
[2024-01-12] MEDS: Ondansetron 4 MG/2 ML Vial IV ×2 (08:01→11:55)
[2024-01-12 08:05] LABS: BNP,B-Type NATRIURETIC PEPTIDE 1559.6 pg/mL (0-100)
[2024-01-12 08:10] LABS: Allen Test Positive; Base Excess -6 mmol/L (-2 to +2); Bicarbonate 19.4 mmol/L (22-26); Blood Gas Specimen Type ART; Comment 14/8; O2 Delivery Device BiPAP; PEEP 8; PO2 56 mmHG (75-100); RR 12; SITE L Radial; SO2 89 % (95-99); Total Carbon Dioxide 20 mmol/L; pCO2 32.3 mmHg (35-45); pH 7.39 (7.35-7.45)
[2024-01-12] MEDS: Furosemide 100 MG/10 ML Vial 60 MG IV (08:32)
[2024-01-12] MEDS: Vancomycin HCl 1,250 MG in 0.9% Normal Saline (250mL Bag) 250 ML 167 MG IV (08:39)
[2024-01-12] MEDS: Enoxaparin 40 MG/0.4 ML Syringe SC (08:39)
[2024-01-12] MEDS: proMETHazine 25 MG/ML Syringe 12.5 MG IM (08:48)
[2024-01-12] MEDS: levoFLOXacin IV 750 MG/150 ML BAG 100 MG IV (08:49)
[2024-01-12] MEDS: 0.9% Normal Saline (250mL Bag) 250 ML 15 ML IV ×2 (08:50→20:04)
[2024-01-12 09:16] LABS: Lactic Acid 2.2 mmol/L (0.4-1.9); Troponin-I HS 1388 pg/mL (3.0-54.0)
--- NOTE | 2024-01-12 09:29 | NURSING ---
Dynamic Access called for PICC placement. Referral Tool Complete, Consent Obtained
--- NOTE | 2024-01-12 09:35 | PCM.RX.CS ---
Consult Antibiotic Management Pharmacy has been consulted to manage selected antibiotic: Vancomycin Type of Intervention Type of Consult: New start Labs Labs: Sodium 140 mmol/L (136-145) 01/12/24 04:15 Potassium 3.9 mmol/L (3.5-5.1) 01/12/24 04:15 Chloride 108 mmol/L (98-107) H 01/12/24 04:15 Carbon Dioxide 23.0 mmol/L (21.0-32.0) 01/12/24 04:15 Anion Gap 9 (5-15) 01/12/24 04:15 BUN 25 mg/dL (7-18) H 01/12/24 04:15 Creatinine 1.38 mg/dL (0.55-1.02) H 01/12/24 04:15 Est GFR (MDRD) Af Amer 51 mL/min (>60) L 01/12/24 04:15 Est GFR (MDRD) Non-Af 42 mL/min (>60) L 01/12/24 04:15 BUN/Creatinine Ratio 18.1 RATIO (10-20) 01/12/24 04:15 Glucose 192 mg/dL (74-106) H 01/12/24 04:15 Dosing Weight Weight used for dosin.2 kg Estimated Creatinine Clearance Estimated Creatinine Clearance: 48.8ML/MIN Goal Trough Goal Trough: 15-20 mcg/mL Pharmacy Plan for Drug Dosing Pharmacy Plan for Drug Dosing: Give initial standard dose (15mg/kg) of 1250mg IV x1, then continue with 500mg IV q12h per [facility] dosing protocol. Check a trough before the 4th overall dose. Pharmacy Service will continue to monitor and adjust dosing as required. Follow-Up Labs Follow-Up Labs: Trough: Vancomycin Date/Time Labs Ordered Labs to be done on [date and time ordered]: 01/13/24 20:30
--- NOTE | 2024-01-12 12:50 | PCMCONS.TICU ---
HPI Consult Data Date of Consult: 01/12/24 HPI Narrative HPI Narrative: RAYMON HAAS, is a 53 F with a pmhx of respiratory failure, depression, anxiety, COPD, HLD who presented to the emergency department [facility] early on the a.m. of 01/12/2024 with a chief complaint of shortness of breath. The patient was just admitted here from January 10, 2024 through January 11, 2020 for and went home just hours before she was discharged. She had a recent history of Takotsubo cardiomyopathy but repeat echocardiogram done on 12/28/2023 showed recovery of ejection fraction at 65%. During her hospitalization she was treated for COPD exacerbation with steroids and doxycycline as well as aerosols. She was discharged home on the afternoon of 01/11/2024 on 2 L nasal cannula at rest and with ambulation. At the time of admission on the she had a negative COVID/flu/RSV PCR, negative respiratory viral panel blood cultures are still pending at this time and a sputum culture was obtained but not finalized. Gram stain showed 2+ gram-positive cocci and 2+ white blood cells with no epis. Patient does have a history of tobacco abuse and states she quit about 2 weeks ago. She was profoundly hypoxic upon EMS arrival with oxygen saturations on 2 L nasal cannula at 70%. Chest x-ray shows right greater than left reticular interstitial thickening and patchy hazy mid right and lower lung airspace opacification that appears worse from her chest x-ray 2 days ago. BNP 1559 and troponin 1300. Pulmonary has been asked to evaluate the patient Lines - PIVS Tubes - purewick Gtts- none PFSH Medical History Takotsubo cardiomyopathy Bipolar disorder Anxiety Depression Osteoarthritis Kidney stones Hx of gastroesophageal reflux (GERD) Smoker BiPAP (biphasic positive airway pressure) dependence Asthma Myocardial infarct Chest pain Stroke/cerebrovascular accident Migraines Seizures Ulcerative colitis Hypertension COPD (chronic obstructive pulmonary disease) Home Medications ?Medication ?Instructions ?Recorded ?Last Taken ?Type albuterol sulfate 90 mcg/actuation 2 puff inhalation Q6H PRN COPD 02/02/19 01/09/24 History aerosol inhaler atorvastatin 40 mg tablet 40 mg PO DAILY cholesterol 11/07/23 01/09/24 History hydroxyzine pamoate 100 mg capsule 100 mg PO BID Anxiety 11/07/23 01/09/24 History omeprazole 40 mg capsule,delayed 40 mg PO DAILY GERD 11/07/23 01/09/24 History release sertraline 50 mg tablet 75 mg PO DAILY Mood 11/07/23 01/09/24 History ziprasidone HCl 80 mg capsule 80 mg PO QHS antipsychotic 11/07/23 01/09/24 History carvedilol 6.25 mg tablet 6.25 mg PO BID blood pressure 30 11/10/23 01/09/24 Rx days #60 tabs losartan 50 mg tablet 50 mg PO QDAY blood pressure 11/27/23 01/09/24 History ziprasidone HCl 40 mg capsule 40 mg PO DAILY antipsychotic 11/27/23 01/09/24 History furosemide 40 mg tablet 40 mg PO DAILY PRN edema #90 tabs 12/28/23 01/09/24 Rx albuterol sulfate 2.5 mg/3 mL 2.5 mg inhalation Q6H PRN wheezing 01/10/24 01/09/24 History (0.083 %) solution for nebulization fluticasone 100 mcg-salmeterol 50 1 ea inhalation BID allergies 01/10/24 01/09/24 History mcg/dose blistr powdr for inhalation doxycycline monohydrate 100 mg 100 mg PO BID 7 days #14 caps 01/11/24 Unknown Rx capsule guaifenesin 1,200 mg tablet, 1,200 mg PO BID #20 tabs 01/11/24 Unknown Rx extended release 12 hr (Mucus Relief ER) prednisone 20 mg tablet 20 mg PO BID 7 days #14 tabs 01/11/24 Unknown Rx Allergy/AdvReac Type Severity Reaction Status Date / Time meperidine (From Demerol) Allergy Other Verified 01/12/24 03:27 metronidazole (From Flagyl) Allergy Hives Verified 01/12/24 03:27 oxycodone (From Percocet) Allergy Hives Verified 01/12/24 03:27 Penicillins Allergy Hives Verified 01/12/24 03:27 aspirin AdvReac Vomiting Verified 01/12/24 03:27 Family History Mother Myocardial infarction Brother Myocardial infarction Surgical History Hx of hysterectomy History of appendectomy Social History (Updated 01/12/24 @ 06:[address] Christine Sung DO) Smoking Status: Former smoker how long ago did patient quit smoking: Quit 2 weeks ago per patient report on 01/12/2024 alcohol intake: never substance use type: does not use caffeine: Yes (occasionally) ROS Review of Systems ROS Unobtainable: due to mental status Objective Data Objective Data Vital Signs: Vital Signs Last response Temperature 36.4 C L 01/12/24 09:30 Temperature Source Temporal 01/12/24 09:30 Pulse Rate 100 01/12/24 11:00 Pulse Strength Normal (2+) 01/12/24 08:09 Respiratory Rate 16 01/12/24 11:00 Respiratory Effort Accessory Muscle Use 01/12/24 08:05 Respiratory Depth Shallow 01/12/24 08:05 Respiratory Pattern Tachypnea 01/12/24 08:06 Blood Pressure 146/91 H 01/12/24 11:00 Blood Pressure Mean 109 01/12/24 11:00 Blood Pressure Source Monitor 01/12/24 11:00 Blood Pressure Position Semi-Fowlers 01/12/24 11:00 Blood Pressure Location Left Arm 01/12/24 11:00 Pulse Ox 95 01/12/24 11:00 Oxygen Delivery Method Bi-pap 01/12/24 11:00 Oxygen Flow Rate (L/min) 14 01/12/24 11:00 Fraction of Inspired Oxygen (FIO2) 80 01/12/24 11:00 I&O: I&O Last 24 Hours 01/11/24 01/12/24 01/12/24 23:59 11:59 23:59 Intake Total 1730 / 1730 Output Total 775 / 775 Balance 955 / 955 I&O: Total Stay 01/12/24 03:25 thru 01/12/24 11:34 Intake Total 1730 Output Total 775 Balance 955 Current Meds Ordered / Administered: Current meds ordered / Administered Generic Name Dose Route Start Last Admin Trade Name Freq PRN Reason Stop Dose Admin Acetaminophen 650 mg 01/12/24 07:48 Acetaminophen 325 Mg Tablet PO Q6H PRN PRN Pain 1-10 Or Fever>100.7 Albuterol Sulfate 2.5 mg 01/12/24 07:48 Albuterol 2.5 Mg/3 Ml Vial.Neb. INHALATION Q2H PRN PRN SOB &/OR WHEEZING Albuterol/Ipratropium 3 ml 01/12/24 07:48 01/12/24 11:29 Ipratropium/Albuterol Sulfate 3 Ml Ampul.Neb INHALATION 3 ml Q4H.RT LAUREL Administration Atorvastatin Calcium 40 mg 01/12/24 22:00 Atorvastatin Calcium 40 Mg Tablet PO QHS LAUREL Carvedilol 6.25 mg 01/12/24 10:00 01/12/24 08:40 Carvedilol 6.25 Mg Tablet PO Not Given BID [facility] Protocol Enoxaparin Sodium 40 mg 01/12/24 10:00 01/12/24 08:39 Enoxaparin 40 Mg/0.4 Ml Syringe SC 40 mg DAILY LAUREL Administration Guaifenesin 1,200 mg 01/12/24 10:00 01/12/24 08:41 Guaifenesin 1,200 Mg Tablet PO Not Given BID LAUREL Hydroxyzine Pamoate 100 mg 01/12/24 10:00 01/12/24 08:41 Hydroxyzine Lisa 25 Mg Capsule PO Not Given BID LAUREL Levofloxacin 750 mg in 150 mls @ 100 mls/hr 01/12/24 10:00 01/12/24 10:19 Levaquin Iv IV 01/19/24 10:01 Infused Q24 LAUREL Infusion Vancomycin IV-PHARMACY TO DOSE 500 mls @ 250 mls/hr 01/12/24 07:48 1 each/ Sodium Chloride IV X1 PRN Rx to Dose Protocol Sodium Chloride 250 mls @ 15 mls/hr 01/12/24 07:51 01/12/24 08:50 IV 15 mls/hr .[id number] PRN Administration Additional IVPB Infusion Sodium Chloride 250 mls @ 15 mls/hr 01/12/24 07:51 IV .[id number] PRN Saline Flush Vancomycin HCl 500 mg in 100 mls @ 100 mls/hr 01/12/24 21:00 IV Q12H LAUREL Losartan Potassium 50 mg 01/12/24 10:00 01/12/24 08:41 Losartan Potassium 50 Mg Tablet PO Not Given DAILY [facility] Protocol Methylprednisolone 40 mg 01/12/24 14:00 Methylprednisolone 40 Mg/Ml Vial IV Q8 LAUREL Ondansetron HCl 4 mg 01/12/24 07:48 01/12/24 08:01 Ondansetron 4 Mg/2 Ml Vial IV 4 mg Q8H PRN PRN Administration NAUSEA/VOMITING Pantoprazole Sodium 40 mg 01/12/24 10:00 01/12/24 08:41 Pantoprazole Sodium 40 Mg Tablet PO Not Given DAILY [facility] Promethazine HCl 12.5 mg 01/12/24 08:40 01/12/24 08:48 Promethazine 25 Mg/Ml Syringe IM 12.5 mg Q4H PRN PRN Administration NAUSEA/VOMITING Senna/Docusate Sodium 2 tablet 01/12/24 07:48 Senna/Docusate Sodium 1 Tablet PO BID PRN Constipation Sertraline HCl 75 mg 01/12/24 10:00 01/12/24 08:42 Sertraline 50 Mg Tablet PO Not Given DAILY [facility] Sodium Chloride 10 - 40 ml 01/12/24 07:51 01/12/24 11:55 0.9% Saline Lock 10 Ml Syringe IV 10 ml UD PRN Administration SALINE FLUSH Vancomycin Protocol 1 lab 01/13/24 18:30 Vancomycin Trough/Random Due MC 01/13/24 22:30 DAILY [facility] Ziprasidone 40 mg 01/12/24 10:00 01/12/24 08:41 Ziprasidone Hcl 20 Mg Capsule PO Not Given DAILY [facility] Ziprasidone 80 mg 01/12/24 22:00 Ziprasidone Hcl 20 Mg Capsule PO QHS [facility] Physical Exam Const alert and oriented x3 Constitutional Narrative: respiratory distress General Appearance: cooperative and well developed HEENT normocephalic, head/scalp atraumatic and moist oral mucous membranes Eyes PERRL, EOMs intact bilaterally and conjunctivae normal Neck full ROM and no lymphadenopathy Chest inspection of chest normal Resp normal respiratory effort and no use of accessory muscles Auscultation: diminished lung sounds; Negative for rales, rhonchi or wheezes Percussion: Negative for dullness Cardio regular rate, regular rhythm, S1 normal heart sound, S2 normal heart sound, no murmurs, no rub and no gallops GI normal to inspection, nondistended, normoactive bowel sounds no CVA tenderness Extremity no clubbing, cyanosis or edema Skin no rashes or lesions noted Neuro oriented x3, CN's II-XII intact bilaterally, moves all extremities and no focal motor deficits Psych Activity / Motor Behavior: restless Mood & Affect: anxious Lab / Micro Data 01/12/24 03:30 01/12/24 04:15 Labs: Laboratory Results - last 24 hr 01/12/24 03:30: WBC 22.9 H, RBC 4.06 L, Hgb 12.5, Hct 38.7, MCV 95.3, MCH 30.8, MCHC 32.3, RDW Std Deviation 55.2 H, RDW Coeff of Joseph 16.5 H, Plt Count 277, MPV 11.7, Immature Gran % (Auto) 1.000 H, Neut % (Auto) 90.3 H, Lymph % (Auto) 5.5 L, [place] % (Auto) 3.0, Eos % (Auto) 0.0, Baso % (Auto) 0.2, Absolute Neuts (auto) 20.7 H, Absolute Lymphs (auto) 1.27, Nucleated RBC % 0, Differential Comment SCANNED, PT Cancelled, INR Cancelled, APTT Cancelled, Sodium Cancelled, Potassium Cancelled, Chloride Cancelled, Carbon Dioxide Cancelled, Anion Gap Cancelled, BUN Cancelled, Creatinine Cancelled, Estim Creat Clear Calc Cancelled, Est GFR (MDRD) Af Amer Cancelled, Est GFR (MDRD) Non-Af Cancelled, BUN/Creatinine Ratio Cancelled, Glucose Cancelled, Calcium Cancelled, Total Bilirubin Cancelled, AST Cancelled, ALT Cancelled, Alkaline Phosphatase Cancelled, Troponin I High Sens Cancelled, Total Protein Cancelled, Albumin Cancelled, Globulin Cancelled, Albumin/Globulin Ratio Cancelled 01/12/24 03:33: B-Natriuretic Peptide Cancelled 01/12/24 03:50: Lactic Acid 4.7 H* 01/12/24 04:15: Sodium 140, Potassium 3.9, Chloride 108 H, Carbon Dioxide 23.0, Anion Gap 9, BUN 25 H, Creatinine 1.38 H, Estim Creat Clear Calc 48.81, Est GFR (MDRD) Af Amer 51 L, Est GFR (MDRD) Non-Af 42 L, BUN/Creatinine Ratio 18.1, Glucose 192 H, Calcium 8.5, Total Bilirubin 0.60, AST 213 H, ALT 90 H, Alkaline Phosphatase 83, Troponin I High Sens 1005 H*, Total Protein 6.1 L, Albumin 3.0 L, Globulin 3.1, Albumin/Globulin Ratio 1.0 01/12/24 04:17: PT 14.5, INR 1.1, APTT 20.4 L 01/12/24 06:10: B-Natriuretic Peptide 1559.6 H 01/12/24 08:25: Lactic Acid 2.2 H*, Troponin I High Sens Cancelled 01/12/24 08:25: Troponin I High Sens 1388 H* ABG Data ABG results: ABG 01/12/24 01/12/24 03:47 08:06 Specimen Type ART ART Sample Site L Radial L Radial pH 7.26 L 7.39 Bicarbonate Actual 16.0 L 19.4 L Total CO2 17 20 Base Excess -11 L -6 L O2 Saturation 93 L 89 L O2 % 80.0 75.0 ABG pCO2 35.9 32.3 L ABG pO2 76 56 L Lester Test Positive Positive Respiration Rate 12 12 O2 Delivery Device BiPAP BiPAP Vent Mode Not entered st Tidal Volume 450.0 POC PEEP 8 8 Clinical Comments 02/01 Imaging Radiology Impression Chest X-Ray 01/12/24 04:00 IMPRESSION: Right greater than left reticular interstitial thickening and patchy hazy right mid and lower lung airspace opacification which may represent interstitial and alveolar edema or right lung pneumonia with mild underlying bilateral edema in the appropriate setting. Correlate with exam.. Electronically Signed: Rahul Red MD at 4:41 EDT , Chest CT 01/12/24 05:16 IMPRESSION: Consolidation in the left lower lung suspicious for pneumonia Moderate emphysematous change Lower lung predominant mild interstitial edema with small layering right effusion. Groundglass attenuation within the lower lobes is most consistent with alveolar edema. . Electronically Signed: Rahul Red MD at 6:53 EDT , Assessment and Plan . Assessment and plan: Acute hypoxic respiratoy failure Stress induced cardiomyopathy NSTEMI Sepsis RUFINA AECOPD - lasix 40 mg IV BID , nitropaste 0.5 inch - cardiology consult - lovenox 1 mg /mg - procal - azithromycin and ceftriaxone for sepsis - likely needs to be intubated given respiratory failure - repeat EKG - trend troponin Critical Care Time:60 mins The entirety of this encounter was done via Telemedicine
--- NOTE | 2024-01-12 13:48 | EKG12_ITS ---
Test Reason : Blood Pressure : / mmHG Vent. Rate : 096 BPM Atrial Rate : 096 BPM P-R Int : 152 ms QRS Dur : 096 ms QT Int : 382 ms P-R-T Axes : 040 039 069 degrees QTc Int : 482 ms Normal sinus rhythm Prolonged QT Abnormal ECG When compared with ECG of 12-JAN-2024 04:21, MANUAL COMPARISON REQUIRED, DATA IS UNCONFIRMED Confirmed by Josh Burton ([id number]), assignment desk editor TANYA RASHID ([id number]) on 01/15/2024 1:56:34 PM Referred By: Confirmed By:Josh Burton
[2024-01-12] MEDS: Etomidate 20 MG/10 ML Vial IV (13:56)
[2024-01-12] MEDS: Succinylcholine Chloride 200 MG/10 ML SYRINGE 100 MG IV (13:56)
[2024-01-12] MEDS: Propofol 10MG/Ml 1,000 MG/100 ML Bottle 5.1 MG CONT INF (14:00)
--- NOTE | 2024-01-12 14:02 | PCM.OP.PRO ---
Procedure Report Date of Procedure: 01/12/24 Endotracheal intubation Indication; respiratory failure Premeds 20 mg of etomidate and 100 mg of succinylcholine Patient was intubated using in direct visualization via the glide scope. Tube was successfully placed at 23 cm at the lip. ET tube position confirmed with bilateral auscultation and as well as colorimetric change. Subsequently obtain a chest x-ray which did show The tip of the endotracheal tube is at 4.7 cm proximal to the med. The tip of the nasogastric tube is within the body of the stomach.. Vent orders subsequently written. Procedures Hospitalists Procedures: [id number] Insert Emergency Airway
[2024-01-12] MEDS: fentaNYL drip 100 ML 5 MCG CONT INF (14:05)
--- NOTE | 2024-01-12 14:14 | RAD_ITS ---
STUDY: X-RAY CHEST REASON FOR EXAM: Female, 53 years old. To confirm ET placement -- Call wet read to TECHNIQUE: Single AP portable view of the chest. COMPARISON: Comparison is made with prior study dated January 12, 2024. FINDINGS: An endotracheal tube has been placed. The tip is at 4.7 cm proximal to the med. A nasogastric tube is seen with the tip in the body of the stomach. EKG electrodes are seen. Stable airspace disease in the right hemithorax. Patchy airspace disease in the left lower lobe. There is been essentially no change. There is no demonstrated pleural abnormality. Normal size heart. Normal mediastinum and amy. Normal visualized pulmonary arteries. There is atherosclerotic calcification of the aortic arch with tortuosity. Normal visualized thoracic spine. Normal visualized ribs, clavicles, and shoulders. There is no demonstrated abnormality of the visualized soft tissue structures of the upper abdomen. RAD/Chest 1 View (Portable) IMPRESSION: The tip of the endotracheal tube is at 4.7 cm proximal to the med. The tip of the nasogastric tube is within the body of the stomach. Electronically Signed: Chico Renteria MD at 14:42 EDT ,
--- NOTE | 2024-01-12 14:23 | PCM.PN.BLA ---
Progress Note Patient clinical condition continued to deteriorate despite being on BiPAP. 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 Verbal consent was obtained from the patient prior to the procedure. Patient was premedicated with succinylcholine as well as etomidate. This was done using the glide scope. Chest x-ray obtained following the intubation did not demonstrate the tip of the endotracheal tube is at 4.7 cm proximal to the med. The tip of the nasogastric tube is within the body of the stomach.Postintubation orders subsequently written. Additional critical care time patient's overall evaluation,decision-making process, review of diagnostic data, adjustment of management, discussion with other providers, nursing nursing and ancillary staff involved in patient's care documentation, 40 Minutes Procedures Hospitalists Procedures: [id number] Critical Care Addl 30 Min
[2024-01-12 14:55] LABS: Allen Test Positive; Base Excess -5 mmol/L (-2 to +2); Blood Gas Specimen Type ART; Mode AC; O2 Delivery Device Adult Vent; PEEP 10; PO2 69 mmHG (75-100); RR 16; SITE L Radial; SO2 91 % (95-99); Total Carbon Dioxide 24 mmol/L; pCO2 48.4 mmHg (35-45); pH 7.27 (7.35-7.45)
--- NOTE | 2024-01-12 15:03 | NURSING ---
Intubation Note: Called Dr. Burnett to come to bedside, O2 sats in 70s on BiPAP, patient very restless and not doing well. Informed us to prepare and have RT grab GlideScope. Dr. Olivia ordered 20mg Etomidate and 100mg succ IVP for intubation & Fentanyl and Propofol for sedation at 1343. Meds okayed with Dr. Burnett. 20mg Etomidate IVP 1356, 100mg Succ IVP 1356. Intubation successful 1358. Positive color change, 7.5ETT bilat BS noted, 23@lip. Propofol started @ 1400 @10. Restraints applied 1403, signed by Dr. Burnett. Fentanyl started @50 @1405. Increased propofol to 15 @1413. Per Dr. Olivia, increase propofol to 30 @1414. Fentanyl increased to 75mcg @1414. Corwin present and assessed patient. OG tube inserted 1410 on 2nd attempt. 16F Core temp morin at 1445. Called [facility] for PICC line placement, Nia from [employer] said approx arrival will be between [id number].
[2024-01-12 16:14] LABS: CPK Total, Creatine Kinase 2109 U/L (26-192)
[2024-01-12 16:34] LABS: Triglycerides 218 mg/dL; Troponin-I HS 922 pg/mL (3.0-54.0)
[2024-01-12 16:56] LABS: Procalcitonin 0.53 ng/mL (0.00-0.09)
[2024-01-12] MEDS: Albuterol 2.5 MG/3 ML VIAL.NEB. INHALATION (17:11)
[2024-01-12] MEDS: Furosemide 40 MG/4 ML Vial IV (17:17)
[2024-01-12] MEDS: Propofol 10MG/Ml 1,000 MG/100 ML Bottle 10.1 MG CONT INF (20:00)
[2024-01-12] MEDS: Pantoprazole Sodium 40 MG in 0.9% Normal Saline (100mL MB+) 100 ML 330 MG IV (20:05)
[2024-01-12] MEDS: Atorvastatin Calcium 40 MG Tablet GT (20:28)
[2024-01-12] MEDS: Vancomycin IV 500 MG/100 ML BAG 100 MG IV (20:28)
[2024-01-12] MEDS: hydrOXYzine PAM 25 MG Capsule 100 MG GT (20:29)
[2024-01-12] MEDS: Chlorhexidine 15 ML PO (20:31)
[2024-01-12] MEDS: 0.9% Normal Saline (500mL Bag) 500 ML 999 ML IV ×2 (21:16→22:12)
[2024-01-12] MEDS: Norepinephrine 8 MG in 0.9% Normal Saline (250mL Bag) 242 ML 9.4 MG CONT INF (22:52)
[2024-01-12] MEDS: fentaNYL drip 100 ML 10 MCG CONT INF (23:09)
[2024-01-13] VITALS (51 sets, daily range): BP systolic 80–142; BP diastolic 50–71; PULSE 59–85; RESP 16–20; TEMP 36.7–37.5; O2SAT 88–100; BMI 31.1; BMI 30.5
[2024-01-13] MEDS: Propofol 10MG/Ml 1,000 MG/100 ML Bottle 10.1 MG CONT INF (01:50)
[2024-01-13] MEDS: Ipratropium/Albuterol Sulfate 3 ML AMPUL.NEB INHALATION ×6 (03:19→23:16)
[2024-01-13 04:44] LABS: Magnesium 1.6 mg/dL (1.6-2.6); Phosphorus 3.6 mg/dL (2.5-4.9)
[2024-01-13] MEDS: TITRATION PARAMETER CHANGE 1 EACH IV ×2 (05:04→08:54)
--- NOTE | 2024-01-13 05:55 | EKG12_ITS ---
Test Reason : am ekg Blood Pressure : / mmHG Vent. Rate : 065 BPM Atrial Rate : 065 BPM P-R Int : 148 ms QRS Dur : 092 ms QT Int : 468 ms P-R-T Axes : 062 058 054 degrees QTc Int : 486 ms Normal sinus rhythm Prolonged QT Abnormal ECG When compared with ECG of 12-JAN-2024 13:46, MANUAL COMPARISON REQUIRED, DATA IS UNCONFIRMED Confirmed by Josh Burton ([id number]), index editor TANYA RASHID ([id number]) on 01/15/2024 1:56:49 PM Referred By: Confirmed By:Josh Burton
--- NOTE | 2024-01-13 07:02 | PN.HOSP_ITS ---
Reason for Visit Reason for Visit: Diagnoses Acidosis, unspecified (01/12/24) Acute respiratory failure with hypoxia (01/12/24) Elevation of levels of liver transaminase levels (01/12/24) Other specified abnormal findings of blood chemistry (01/12/24) Subjective Subjective Patient had to be intubated the day prior given rapid respiratory deterioration. Seen this a.m. remains on the vent. Objective Data Objective Data Vital Signs: Vital Signs Temp Pulse Resp BP Pulse Ox O2 Del Method O2 Flow Rate 98.7 F 65 16 108/59 L 98 Mechanical Ventilator 14 01/13/24 06:00 01/13/24 06:00 01/13/24 06:00 01/13/24 06:00 01/13/24 06:00 01/13/24 06:00 01/12/24 11:00 FiO2 50 01/13/24 06:00 Oxygen Flow Rate (L/min) 14 Oxygen Delivery Method Mechanical Ventilator Weight: 82.3 kg Body Mass Index (BMI) 31.1 Intake & Output: Intake and Output for Last 24 Hours 01/11/24 01/12/24 01/13/24 23:59 23:59 23:59 Intake Total 3416.87 / 3437.82 242.55 / 242.55 Output Total 1900 / 2000 360 / 360 Balance 1516.87 / 1437.82 -117.45 / -117.45 Lab / Micro Data 01/13/24 08:45 01/13/24 08:45 Labs: Laboratory Results - last 24 hr 01/12/24 04:15: Sodium 140, Potassium 3.9, Chloride 108 H, Carbon Dioxide 23.0, Anion Gap 9, BUN 25 H, Creatinine 1.38 H, Estim Creat Clear Calc 48.81, Est GFR (MDRD) Af Amer 51 L, Est GFR (MDRD) Non-Af 42 L, BUN/Creatinine Ratio 18.1, G lucose 192 H, Calcium 8.5, Total Bilirubin 0.60, AST 213 H, ALT 90 H, Alkaline Phosphatase 83, Troponin I High Sens 1005 H*, Total Protein 6.1 L, Albumin 3.0 L , Globulin 3.1, Albumin/Globulin Ratio 1.0 01/12/24 04:17: PT 14.5, INR 1.1, APTT 20.4 L 01/12/24 06:10: B-Natriuretic Peptide 1559.6 H 01/12/24 08:25: Lactic Acid 2.2 H*, Troponin I High Sens Cancelled 01/12/24 08:25: Troponin I High Sens 1388 H* 01/12/24 15:10: Total Creatine Kinase 2109 H, Troponin I High Sens 922 H*, T riglycerides 218 H 01/12/24 16:16: Procalcitonin 0.53 H 01/13/24 04:23: Phosphorus 3.6, Magnesium 1.6 Micro: Microbiology 01/12/24 15:15 Urine Catheter - Lazo Legionella Antigen - Final 01/12/24 15:15 Urine Catheter - Lazo Streptococcus pneumoniae Antigen (M - Final 01/12/24 14:25 Sputum, Induced/Lukens Gram Stain - Final ABG Data ABG results: ABG 01/12/24 01/12/24 08:06 14:52 Specimen Type ART ART Sample Site L Radial L Radial pH 7.39 7.27 L Bicarbonate Actual 19.4 L 22.0 Total CO2 20 24 Base Excess -6 L -5 L O2 Saturation 89 L 91 L O2 % 75.0 100.0 ABG pCO2 32.3 L 48.4 H ABG pO2 56 L 69 L Lester Test Positive Positive Respiration Rate 12 16 O2 Delivery Device BiPAP Adult Vent Vent Mode st AC Tidal Volume 400.0 POC PEEP 8 10 Clinical Comments 02/01 Radiography Diagnostic Testing: Radiology Impression Chest X-Ray 01/12/24 14:14 IMPRESSION: The tip of the endotracheal tube is at 4.7 cm proximal to the med. The tip of the nasogastric tube is within the body of the stomach. Electronically Signed: Chico Renteria MD at 14:42 EDT , Physical Exam Narrative GENERAL: Patient appears ill looking, on BiPAP HEENT: Atraumatic; normocephalic EYES; Anicteric, Normal Conjunctiva NECK; supple, normal thyroid, RESPIRATORY: Diminished to auscultation CARDIOVASCULAR: Regular S1 S2, GI: soft, normoactive bowel sounds, : No Renal angle tenderness; EXTREMITIES: No edema, no clubbing, MUSCULOSKELETAL: no muscle wasting NEURO: Awake; no lateralizing signs. SKIN: No Rash PSYCH; Flat affect Assessment & Plan Assessment/Plan (1) Acute hypoxic respiratory failure: PLAN: Plan Patient is a 53-year-old lady who was discharged from the hospital per her request following admission for acute hypoxia secondary to suspected COPD. Presented back to the hospital with worsening respiratory status. 1. Acute hypoxic respiratory failure ? Secondary to combination of pneumonia with suspected gram-negative organisms, fluid overload and COPD with acute exacerbation. CT of the chest obtained on admission did show Consolidation in the left lower lung suspicious for pneumonia. Moderate emphysematous change. Lower lung predominant mild interstitial edema with small layering right effusion. Groundglass attenuation within the lower lobes is most consistent with alveolar edema. Patient was placed on noninvasive ventilation BiPAP admitted to the intensive care unit with treatment of the underlying etiology. -01/13/2024;Patient clinical condition worsen necessitating patient being intubated. Patient remains on the vent Vent management deferred to telemetry ICU 2. Pneumonia -With suspected multidrug-resistant organisms., Blood and sputum cultures sent. Vancomycin and levofloxacin in addition to supplemental oxygen via BiPAP ? 01/13/2024 patient had to be placed on the vent given her rapid respiratory deterioration. WBC count trending down 3. Acute on chronic congestive heart failure with preserved ejection fraction Patient has known history of Takotsubo cardiomyopathy ;? Echo repeated on 12/28/2023 demonstrated significant recovery with ejection fraction of 65%From an ejection fraction of 20% on 11/07/2023 CT of the chest obtained demonstrated alveolar edema patient placed on noninvasive ventilation diuretic therapy with furosemide, low-sodium diet, fluid restriction Daily weight strict input and output 4. Sepsis ? Secondary to pneumonia patient has evidence of sepsis in addition to endorgan dysfunction with lactic acidosis and respiratory failure. Patient was managed with broad-spectrum antibiotic therapy per protocol. Patient did not receive 30 mL/kg fluid resuscitation in view of her concomitant congestive heart failure ? 01/13/2024. Patient clinical condition deteriorated resulting in patient being placed on the vent 5. COPD with acute exacerbation ? Patient started on bronchodilator treatment, systemic steroid as well as antibiotic therapy. Patient placed on oxygen titrated to keep saturation greater than 90. 6. PSVT ? Patient is on beta-blockers did continue 7. Hypertension ? Blood pressure controlled, home medications continued with dose adjustment as needed 8. Dyslipidemia ?Patient is on statin therapy, continued at home dose 9. Depression with anxiety Patient on sertraline, ziprasidone and hydroxyzine 100 mg nightly at home. 10. Marijuana use ? Patient counseled on cessation 11. Elevated troponin ? Secondary to myocardial ischemia from patient increased work of breathing. 12. DVT prophylaxis ? On enoxaparin Critical time spent in the patient's overall evaluation,decision-making process, review of diagnostic data, adjustment of management, discussion with other providers, nursing nursing and ancillary staff involved in patient's care documentation, 55 Charges/Coding Procedures Hospitalists Procedures: [id number] Critical Care 1st Hr
[2024-01-13] MEDS: fentaNYL drip 100 ML 10 MCG CONT INF ×2 (08:56→18:52)
[2024-01-13 08:58] LABS: Hematocrit 30.9 % (37-47); Hemoglobin 10.2 g/dL (12.0-15.0); Mean Corpuscular Hgb 30.9 pg (27.0-32.0); Mean Corpuscular Volume 93.6 fL (81-99); Mean Platelet Vol. 10.5 fl (6.2-12.0); Platelet Count 184 K/mm3 (150-450); RBC Distribution Width CV 15.4 % (11.6-14.6); RBC Distribution Width SD 52.4 fl (35.1-43.9)
[2024-01-13] MEDS: CHLORHEXIDINE GLUC 2% CLOTH 1 EACH TOWELETTE TOPICAL (08:58)
[2024-01-13] MEDS: Chlorhexidine 15 ML PO ×2 (08:58→21:02)
[2024-01-13] MEDS: Carvedilol 6.25 MG Tablet GT ×2 (08:59→21:04)
[2024-01-13] MEDS: Losartan Potassium 50 MG Tablet GT (08:59)
[2024-01-13] MEDS: Ziprasidone HCl 20 MG Capsule 40 MG PO (09:00)
[2024-01-13] MEDS: Vancomycin IV 500 MG/100 ML BAG 100 MG IV ×2 (09:02→21:10)
[2024-01-13] MEDS: guaiFENesin 1,200 MG Tablet 1200 MG PO ×2 (09:05→21:03)
[2024-01-13] MEDS: hydrOXYzine PAM 25 MG Capsule 100 MG GT ×2 (09:05→21:03)
[2024-01-13] MEDS: Sertraline 50 MG Tablet 75 MG GT (09:06)
[2024-01-13 09:11] LABS: AST(SGOT) 53 U/L (15-37); Alanine Aminotransfer ALT/SGPT 49 U/L (13-56); Albumin, Serum 2.7 g/dL (3.2-5.0); Alkaline Phosphatase 50 U/L (45-117); Anion Gap 7 (5-15); BUN 32 mg/dL (7-18); BUN/Creat Ratio 22.9 RATIO (10-20); Calcium,Total 8.1 mg/dL (8.5-10.1); Chloride 108 mmol/L (98-107); EST Glomerular Filtration Rate 42 mL/min (>60); Est Glom Filt Rate - Afr Amer 50 mL/min (>60); Estimated Creatinine Clearance 47.67 ml/min; Globulin 2.8 g/dL (2.2-4.2); Glucose 163 mg/dL (74-106); Magnesium 1.8 mg/dL (1.6-2.6); Potassium 4.1 mmol/L (3.5-5.1); Protein, Total 5.5 g/dL (6.4-8.2); Sodium Level 140 mmol/L (136-145)
[2024-01-13 09:20] LABS: Phosphorus 3.2 mg/dL (2.5-4.9)
[2024-01-13] MEDS: Propofol 10MG/Ml 1,000 MG/100 ML Bottle 9.9 MG CONT INF (10:04)
[2024-01-13] MEDS: Furosemide 40 MG/4 ML Vial IV ×3 (10:04→21:01)
[2024-01-13] MEDS: 0.9% Saline Lock 10 ML Syringe IV ×3 (10:05→21:02)
[2024-01-13] MEDS: Pantoprazole Sodium 40 MG in 0.9% Normal Saline (100mL MB+) 100 ML 330 MG IV ×2 (10:05→21:04)
[2024-01-13] MEDS: levoFLOXacin IV 750 MG/150 ML BAG 100 MG IV (10:05)
[2024-01-13] MEDS: Enoxaparin 40 MG/0.4 ML Syringe SC (10:06)
--- NOTE | 2024-01-13 10:57 | CON.PCM.CC_ITS ---
HPI Consult Data Date of Consult: 01/13/24 HPI Narrative HPI Narrative: Patient had no acute events. Cardiology is pending to see patient. Patient is positive from a fluid balance of 200 cc Lines - PICC RUE, PIV , Tubes- morin, OG, ETT Gtts - prop 20 mcg, fent 100 mcg , levo 2 mcg AC Resp- 400 TV, PEEP 10 , RR 16 , FIO2 - 45 - last gas PFSH Medical History Takotsubo cardiomyopathy Bipolar disorder Anxiety Depression Osteoarthritis Kidney stones Hx of gastroesophageal reflux (GERD) Smoker BiPAP (biphasic positive airway pressure) dependence Asthma Myocardial infarct Chest pain Stroke/cerebrovascular accident Migraines Seizures Ulcerative colitis Hypertension COPD (chronic obstructive pulmonary disease) Home Medications ?Medication ?Instructions ?Recorded ?Last Taken ?Type albuterol sulfate 90 mcg/actuation 2 puff inhalation Q6H PRN COPD 02/02/19 01/09/24 History aerosol inhaler atorvastatin 40 mg tablet 40 mg PO DAILY cholesterol 11/07/23 01/09/24 History hydroxyzine pamoate 100 mg capsule 100 mg PO BID Anxiety 11/07/23 01/09/24 History omeprazole 40 mg capsule,delayed 40 mg PO DAILY GERD 11/07/23 01/09/24 History release sertraline 50 mg tablet 75 mg PO DAILY Mood 11/07/23 01/09/24 History ziprasidone HCl 80 mg capsule 80 mg PO QHS antipsychotic 11/07/23 01/09/24 History carvedilol 6.25 mg tablet 6.25 mg PO BID blood pressure 30 11/10/23 01/09/24 Rx days #60 tabs losartan 50 mg tablet 50 mg PO QDAY blood pressure 11/27/23 01/09/24 History ziprasidone HCl 40 mg capsule 40 mg PO DAILY antipsychotic 11/27/23 01/09/24 History furosemide 40 mg tablet 40 mg PO DAILY PRN edema #90 tabs 12/28/23 01/09/24 Rx albuterol sulfate 2.5 mg/3 mL 2.5 mg inhalation Q6H PRN wheezing 01/10/24 01/09/24 History (0.083 %) solution for nebulization fluticasone 100 mcg-salmeterol 50 1 ea inhalation BID allergies 01/10/24 01/09/24 History mcg/dose blistr powdr for inhalation doxycycline monohydrate 100 mg 100 mg PO BID 7 days #14 caps 01/11/24 Unknown Rx capsule guaifenesin 1,200 mg tablet, 1,200 mg PO BID #20 tabs 01/11/24 Unknown Rx extended release 12 hr (Mucus Relief ER) prednisone 20 mg tablet 20 mg PO BID 7 days #14 tabs 01/11/24 Unknown Rx Allergy/AdvReac Type Severity Reaction Status Date / Time meperidine (From Demerol) Allergy Other Verified 01/12/24 03:27 metronidazole (From Flagyl) Allergy Hives Verified 01/12/24 03:27 oxycodone (From Percocet) Allergy Hives Verified 01/12/24 03:27 Penicillins Allergy Hives Verified 01/12/24 03:27 aspirin AdvReac Vomiting Verified 01/12/24 03:27 Family History Mother Myocardial infarction Brother Myocardial infarction Surgical History Hx of hysterectomy History of appendectomy Social History (Updated 01/12/24 @ 06:[address] Christine Sung DO) Smoking Status: Former smoker how long ago did patient quit smoking: Quit 2 weeks ago per patient report on 01/12/2024 alcohol intake: never substance use type: does not use caffeine: Yes (occasionally) ROS Review of Systems ROS Unobtainable: due to endotracheal tube Objective Data Objective Data Vital Signs: Vital Signs Last response 3 Temperature 37.5 C H 01/13/24 09:00 Temperature Source Core 01/13/24 09:00 Pulse Rate 67 01/13/24 09:43 Pulse Strength Normal (2+) 01/13/24 09:29 Respiratory Rate 16 01/13/24 09:43 Respiratory Effort Mechanically Ventilated 01/13/24 07:30 Respiratory Depth Normal 01/13/24 07:30 Respiratory Pattern Normal 01/13/24 09:43 Blood Pressure 97/56 L 01/13/24 10:00 Blood Pressure Mean 69 01/13/24 10:00 Blood Pressure Source Monitor 01/13/24 09:00 Blood Pressure Position Semi-Fowlers 01/13/24 09:00 Blood Pressure Location Left Arm 01/13/24 09:00 Pulse Ox 100 01/13/24 09:43 Oxygen Delivery Method Mechanical Ventilator 01/13/24 09:00 Oxygen Flow Rate (L/min) 14 01/12/24 11:00 Fraction of Inspired Oxygen (FIO2) 50 01/13/24 09:43 I&O: I&O Last 24 Hours 3 01/12/24 01/12/24 01/13/24 11:59 23:59 11:59 Intake Total 1730 / 3437.82 1686.87 / 3437.82 469.18 / 469.18 Output Total 77 / 1999 1125 / 1999 360 / 360 Balance 955 / 1437.82 561.87 / 1437.82 109.18 / 109.18 I&O: Total Stay 3 01/12/24 03:25 thru 01/13/24 10:04 Intake Total 3886.05 Output Total 2260 Balance 1626.05 Current Meds Ordered / Administered: Current meds ordered / Administered 3 Generic Name Dose Route Start Last Admin Trade Name Freq PRN Reason Stop Dose Admin Acetaminophen 650 mg 01/12/24 16:41 Acetaminophen 650 Mg/20 Ml Udc GT Q6H PRN PRN Pain 1-10 Or Fever>100.7 Albuterol Sulfate 2.5 mg 01/12/24 07:48 01/12/24 17:11 Albuterol 2.5 Mg/3 Ml Vial.Neb. INHALATION 2.5 mg Q2H PRN PRN Administration SOB &/OR WHEEZING Albuterol/Ipratropium 3 ml 01/12/24 07:48 01/13/24 06:57 Ipratropium/Albuterol Sulfate 3 Ml Ampul.Neb INHALATION 3 ml Q4H.RT LAUREL Administration Atorvastatin Calcium 40 mg 01/12/24 22:00 01/12/24 20:28 Atorvastatin Calcium 40 Mg Tablet GT 40 mg QHS LAUREL Administration Carvedilol 6.25 mg 01/12/24 22:00 01/13/24 08:59 Carvedilol 6.25 Mg Tablet GT 6.25 mg BID LAUREL Administration Protocol Chlorhexidine Gluconate 15 ml 01/12/24 22:00 01/13/24 08:58 Chlorhexidine 15 Ml PO 15 ml BID LAUREL Administration Chlorhexidine Gluconate 1 each 01/13/24 10:00 01/13/24 08:58 Chlorhexidine Gluc 2% Cloth 1 Each Towelette TOPICAL 1 each DAILY LAUREL Administration Enoxaparin Sodium 40 mg 01/12/24 10:00 01/13/24 10:06 Enoxaparin 40 Mg/0.4 Ml Syringe SC 40 mg DAILY LAUREL Administration Furosemide 40 mg 01/12/24 18:00 01/13/24 10:04 Furosemide 40 Mg/4 Ml Vial IV 40 mg BIDLX LAUREL Administration Protocol Guaifenesin 1,200 mg 01/12/24 10:00 01/13/24 09:05 Guaifenesin 1,200 Mg Tablet PO 1,200 mg BID LAUREL Administration Hydroxyzine Pamoate 100 mg 01/12/24 22:00 01/13/24 09:05 Hydroxyzine Lisa 25 Mg Capsule GT 100 mg BID LAUREL Administration Levofloxacin 750 mg in 150 mls @ 100 mls/hr 01/12/24 10:00 01/13/24 10:05 Levaquin Iv IV 01/19/24 10:01 100 mls/hr Q24 LAUREL Administration Vancomycin IV-PHARMACY TO DOSE 500 mls @ 250 mls/hr 01/12/24 07:48 1 each/ Sodium Chloride IV X1 PRN Rx to Dose Protocol Sodium Chloride 250 mls @ 15 mls/hr 01/12/24 07:51 01/12/24 20:04 IV 15 mls/hr .[id number] PRN Administration Additional IVPB Infusion Sodium Chloride 250 mls @ 15 mls/hr 01/12/24 07:51 IV .[id number] PRN Saline Flush Vancomycin HCl 500 mg in 100 mls @ 100 mls/hr 01/12/24 21:00 01/13/24 10:00 IV 100 mls/hr Q12H LAUREL Infusion Fentanyl 100 mls @ 5 mls/hr 01/12/24 13:45 01/13/24 10:00 CONT INF 100 mcg/hr UD LAUREL 10 mls/hr Titration Protocol 50 MCG/HR Propofol 1,000 mg in 100 mls @ 4.938 mls/hr 01/12/24 13:45 01/13/24 10:04 Diprivan CONT INF 20 mcg/kg/min .Q12H LAUREL 9.9 mls/hr Administration Protocol 10 MCG/KG/MIN Pantoprazole Sodium 40 mg/ 110 mls @ 330 mls/hr 01/12/24 22:00 01/13/24 10:05 Sodium Chloride IV 330 mls/hr Q12 LAUREL Administration Norepinephrine Bitartrate 8 mg 250 mls @ 9.375 mls/hr 01/12/24 22:35 01/13/24 10:00 / Sodium Chloride CONT INF 2 mcg/min .[id number] LAUREL 3.8 mls/hr Titration Protocol 5 MCG/MIN Losartan Potassium 50 mg 01/13/24 10:00 01/13/24 08:59 Losartan Potassium 50 Mg Tablet GT 50 mg DAILY LAUREL Administration Protocol Methylprednisolone 40 mg 01/12/24 14:00 01/13/24 06:07 Methylprednisolone 40 Mg/Ml Vial IV 40 mg Q8 LAUREL Administration Ondansetron HCl 4 mg 01/12/24 07:48 01/12/24 08:01 Ondansetron 4 Mg/2 Ml Vial IV 4 mg Q8H PRN PRN Administration NAUSEA/VOMITING Pantoprazole Sodium 40 mg 01/12/24 10:00 01/13/24 09:05 Pantoprazole Sodium 40 Mg Tablet PO Not Given DAILY LAUREL Promethazine HCl 12.5 mg 01/12/24 08:40 01/12/24 08:48 Promethazine 25 Mg/Ml Syringe IM 12.5 mg Q4H PRN PRN Administration NAUSEA/VOMITING Senna/Docusate Sodium 2 tablet 01/12/24 16:43 Senna/Docusate Sodium 1 Tablet GT BID PRN Constipation Sertraline HCl 75 mg 01/13/24 10:00 01/13/24 09:06 Sertraline 50 Mg Tablet GT 75 mg DAILY LAUREL Administration Sodium Chloride 10 - 40 ml 01/12/24 07:51 01/13/24 10:05 0.9% Saline Lock 10 Ml Syringe IV 10 ml UD PRN Administration SALINE FLUSH Sodium Chloride 5 ml 01/12/24 14:00 Sodium Cl For Inhalation 15 Ml Vial.Neb. INHALATION Q5M PRN Suctioning Vancomycin Protocol 1 lab 01/13/24 18:30 Vancomycin Trough/Random Due MC 01/13/24 22:30 DAILY LAUREL Ziprasidone 40 mg 01/12/24 10:00 01/13/24 09:00 Ziprasidone Hcl 20 Mg Capsule PO 40 mg DAILY LAUREL Administration Ziprasidone 80 mg 01/12/24 22:00 01/12/24 21:31 Ziprasidone Hcl 20 Mg Capsule PO Not Given QHS LAUREL Physical Exam Const Nutritional Appearance: overweight HEENT normocephalic Head and Scalp: normal to inspection Eyes PERRL Neck full ROM Chest inspection of chest normal Cardio regular rate and regular rhythm GI normal to inspection, nondistended, normoactive bowel sounds Neuro Sensorium / Orientation: sedated on vent Lab / Micro Data 01/13/24 08:45 01/13/24 08:45 Labs: Laboratory Results - last 24 hr 01/12/24 15:10: Total Creatine Kinase 2109 H, Troponin I High Sens 922 H*, T riglycerides 218 H 01/12/24 16:16: Procalcitonin 0.53 H 01/13/24 04:23: Phosphorus 3.6, Magnesium 1.6 01/13/24 08:45: WBC 15.0 H, RBC 3.30 L, Hgb 10.2 L, Hct 30.9 L, MCV 93.6, MCH 30.9, MCHC 33.0, RDW Std Deviation 52.4 H, RDW Coeff of Joseph 15.4 H, Plt Count 184, MPV 10.5, Sodium 140, Potassium 4.1, Chloride 108 H, Carbon Dioxide 25.0, Anion Gap 7, BUN 32 H, Creatinine 1.40 H, Estim Creat Clear Calc 47.67, Est GFR (MDRD) Af Amer 50 L, Est GFR (MDRD) Non-Af 42 L, BUN/Creatinine Ratio 22.9 H, G lucose 163 H, Calcium 8.1 L, Phosphorus 3.2, Magnesium 1.8, Total Bilirubin 0.50, AST 53 H, ALT 49, Alkaline Phosphatase 50, Total Protein 5.5 L, Albumin 2.7 L, Globulin 2.8, Albumin/Globulin Ratio 1.0 Micro: Microbiology 01/12/24 15:15 Urine Catheter - Morin Legionella Antigen - Final 01/12/24 15:15 Urine Catheter - Mroin Streptococcus pneumoniae Antigen (M - Final 01/12/24 14:25 Sputum, Induced/Lukens Gram Stain - Final ABG Data ABG results: ABG 01/12/24 14:52 Specimen Type ART Sample Site L Radial pH 7.27 L Bicarbonate Actual 22.0 Total CO2 24 Base Excess -5 L O2 Saturation 91 L O2 % 100.0 ABG pCO2 48.4 H ABG pO2 69 L Lester Test Positive Respiration Rate 16 O2 Delivery Device Adult Vent Vent Mode AC Tidal Volume 400.0 POC PEEP 10 Imaging Radiology Impression Chest X-Ray 01/12/24 14:14 IMPRESSION: The tip of the endotracheal tube is at 4.7 cm proximal to the med. The tip of the nasogastric tube is within the body of the stomach. Electronically Signed: Chico Renteria MD at 14:42 EDT , Assessment and Plan . Assessment and plan: Acute hypoxic respiratory failure Stress induced cardiomyopathy NSTEMI Sepsis RUFINA AECOPD - will need to consolidate fluids to make her negative - lasix 40 mg IV TID - currently on levofloxacin and vanc , switch to po levofloxacin - needs more volume off before extubation - cardiology consult pending Critical Care Time: 45 The entirety of this encounter was done via Telemedicine
[2024-01-13 12:12] LABS: Allen Test Positive; Base Excess 3 mmol/L (-2 to +2); Blood Gas Specimen Type ART; Mode AC; O2 Delivery Device ET Tube; PEEP 8; PO2 125 mmHG (75-100); RR 16; SITE L Brach; SO2 99 % (95-99); Total Carbon Dioxide 28 mmol/L; pCO2 41.2 mmHg (35-45); pH 7.42 (7.35-7.45)
--- NOTE | 2024-01-13 12:19 | PCM.CONS.C ---
Assessment & Plan Assessment/Plan (1) Acute hypoxic respiratory failure: PLAN: History of COPD. CT scan of the lung shows consolidation of the left lung. Manage as per pulmonology. (2) COPD (chronic obstructive pulmonary disease): PLAN: See #1 above. (3) Elevated troponin: PLAN: Coronary angiography in October failed to reveal any significant disease. Troponin elevation likely type II. Check echocardiogram to reassess LV function. (4) Shock: PLAN: Inotropic support as needed. HPI Consult Data Date of Consult: 01/13/24 HPI Narrative Reason for Consultation: Respiratory failure HPI Narrative: This lady was admitted to the hospital in October of this year, diagnosed with Takotsubo's cardiomyopathy. She has had coronary angiography done which did not show any significant CAD. Patient has been admitted to the hospital this time with complaints of shortness of breath. She was noted to be markedly hypoxic and therefore started on mechanical ventilation. Her troponin and BNP has noted to be elevated. Blood pressure is also been running on the lower side. She is presently on low-dose of norepinephrine. CT scan of the chest showed consolidation in the left lung. Alveolar edema was also noted. [facility] Medical History (Updated 01/13/24 @ 12:[address] Saurabh Taylor MD) Takotsubo cardiomyopathy Bipolar disorder Anxiety Depression Osteoarthritis Kidney stones Hx of gastroesophageal reflux (GERD) Smoker BiPAP (biphasic positive airway pressure) dependence Asthma Myocardial infarct Chest pain Stroke/cerebrovascular accident Migraines Seizures Ulcerative colitis Hypertension COPD (chronic obstructive pulmonary disease) Home Medications ?Medication ?Instructions ?Recorded ?Last Taken ?Type albuterol sulfate 90 mcg/actuation 2 puff inhalation Q6H PRN COPD 02/02/19 01/09/24 History aerosol inhaler atorvastatin 40 mg tablet 40 mg PO DAILY cholesterol 11/07/23 01/09/24 History hydroxyzine pamoate 100 mg capsule 100 mg PO BID Anxiety 11/07/23 01/09/24 History omeprazole 40 mg capsule,delayed 40 mg PO DAILY GERD 11/07/23 01/09/24 History release sertraline 50 mg tablet 75 mg PO DAILY Mood 11/07/23 01/09/24 History ziprasidone HCl 80 mg capsule 80 mg PO QHS antipsychotic 11/07/23 01/09/24 History carvedilol 6.25 mg tablet 6.25 mg PO BID blood pressure 30 11/10/23 01/09/24 Rx days #60 tabs losartan 50 mg tablet 50 mg PO QDAY blood pressure 11/27/23 01/09/24 History ziprasidone HCl 40 mg capsule 40 mg PO DAILY antipsychotic 11/27/23 01/09/24 History furosemide 40 mg tablet 40 mg PO DAILY PRN edema #90 tabs 12/28/23 01/09/24 Rx albuterol sulfate 2.5 mg/3 mL 2.5 mg inhalation Q6H PRN wheezing 01/10/24 01/09/24 History (0.083 %) solution for nebulization fluticasone 100 mcg-salmeterol 50 1 ea inhalation BID allergies 01/10/24 01/09/24 History mcg/dose blistr powdr for inhalation doxycycline monohydrate 100 mg 100 mg PO BID 7 days #14 caps 01/11/24 Unknown Rx capsule guaifenesin 1,200 mg tablet, 1,200 mg PO BID #20 tabs 01/11/24 Unknown Rx extended release 12 hr (Mucus Relief ER) prednisone 20 mg tablet 20 mg PO BID 7 days #14 tabs 01/11/24 Unknown Rx Allergy/AdvReac Type Severity Reaction Status Date / Time meperidine (From Demerol) Allergy Other Verified 01/12/24 03:27 metronidazole (From Flagyl) Allergy Hives Verified 01/12/24 03:27 oxycodone (From Percocet) Allergy Hives Verified 01/12/24 03:27 Penicillins Allergy Hives Verified 01/12/24 03:27 aspirin AdvReac Vomiting Verified 01/12/24 03:27 Family History Mother Myocardial infarction Brother Myocardial infarction Surgical History Hx of hysterectomy History of appendectomy Social History (Updated 01/12/24 @ 06:[address] Christine Sung DO) Smoking Status: Former smoker how long ago did patient quit smoking: Quit 2 weeks ago per patient report on 01/12/2024 alcohol intake: never substance use type: does not use caffeine: Yes (occasionally) Physical Exam Narrative Awake, on ventilator. Appears comfortable. Heart sounds 1 and 2 are noted. Diminished breath sounds bilateral lung uribe. No ankle edema noted. Risk Stratification Risk Stratification Applicable: No Objective Data Vital Signs: Vital Signs Temp Pulse Resp BP Pulse Ox O2 Del Method O2 Flow Rate 99.5 F H 67 16 97/56 L 100 Mechanical Ventilator 14 01/13/24 09:00 01/13/24 09:43 01/13/24 09:43 01/13/24 10:00 01/13/24 09:43 01/13/24 09:00 01/12/24 11:00 FiO2 50 01/13/24 09:43 Oxygen Flow Rate (L/min) 14 Oxygen Delivery Method Mechanical Ventilator Weight: 181 lb 7.047 oz Body Mass Index (BMI) 31.1 Intake & Output: Intake and Output for Last 24 Hours 01/11/24 01/12/24 01/13/24 23:59 23:59 23:59 Intake Total 3416.87 / 3437.82 469.18 / 469.18 Output Total 1900 / 2000 360 / 360 Balance 1516.87 / 1437.82 109.18 / 109.18 Lab / Micro Data 01/13/24 08:45 01/13/24 08:45 Labs: Laboratory Results - last 24 hr 01/12/24 15:10: Total Creatine Kinase 2109 H, Troponin I High Sens 922 H*, Triglycerides 218 H 01/12/24 16:16: Procalcitonin 0.53 H 01/13/24 04:23: Phosphorus 3.6, Magnesium 1.6 01/13/24 08:45: WBC 15.0 H, RBC 3.30 L, Hgb 10.2 L, Hct 30.9 L, MCV 93.6, MCH 30.9, MCHC 33.0, RDW Std Deviation 52.4 H, RDW Coeff of Joseph 15.4 H, Plt Count 184, MPV 10.5, Sodium 140, Potassium 4.1, Chloride 108 H, Carbon Dioxide 25.0, Anion Gap 7, BUN 32 H, Creatinine 1.40 H, Estim Creat Clear Calc 47.67, Est GFR (MDRD) Af Amer 50 L, Est GFR (MDRD) Non-Af 42 L, BUN/Creatinine Ratio 22.9 H, Glucose 163 H, Calcium 8.1 L, Phosphorus 3.2, Magnesium 1.8, Total Bilirubin 0.50, AST 53 H, ALT 49, Alkaline Phosphatase 50, Total Protein 5.5 L, Albumin 2.7 L, Globulin 2.8, Albumin/Globulin Ratio 1.0 Micro: Microbiology 01/12/24 15:15 Urine Catheter - Lazo Legionella Antigen - Final 01/12/24 15:15 Urine Catheter - Lazo Streptococcus pneumoniae Antigen (M - Final 01/12/24 14:25 Sputum, Induced/Lukens Gram Stain - Final ABG Data ABG results: ABG 01/12/24 01/13/24 14:52 12:09 Specimen Type ART ART Sample Site L Radial L Brach pH 7.27 L 7.42 Bicarbonate Actual 22.0 27.0 H Total CO2 24 28 Base Excess -5 L 3 H O2 Saturation 91 L 99 O2 % 100.0 45.0 ABG pCO2 48.4 H 41.2 ABG pO2 69 L 125 H Lester Test Positive Positive Respiration Rate 16 16 O2 Delivery Device Adult Vent ET Tube Vent Mode AC AC Tidal Volume 400.0 400.0 POC PEEP 10 8 Rhythm Strip Rhythm Strip: Sinus Rhythm Cardiology Labs/Tests 01/12/24 14:52: pH 7.27 L, Bicarbonate Actual 22.0, Base Excess -5 L, O2 Saturation 91 L, ABG pCO2 48.4 H, ABG pO2 69 L, Lester Test Positive 01/12/24 15:10: Triglycerides 218 H 01/13/24 04:23: Phosphorus 3.6, Magnesium 1.6 01/13/24 08:45: WBC 15.0 H, RBC 3.30 L, Hgb 10.2 L, Hct 30.9 L, MCV 93.6, MCH 30.9, MCHC 33.0, Plt Count 184, MPV 10.5, Sodium 140, Potassium 4.1, Chloride 108 H, Carbon Dioxide 25.0, Anion Gap 7, BUN 32 H, Creatinine 1.40 H, Est GFR (MDRD) Af Amer 50 L, Est GFR (MDRD) Non-Af 42 L, BUN/Creatinine Ratio 22.9 H, Glucose 163 H, Calcium 8.1 L, Phosphorus 3.2, Magnesium 1.8, Total Bilirubin 0.50 01/13/24 12:09: pH 7.42, Bicarbonate Actual 27.0 H, Base Excess 3 H, O2 Saturation 99, ABG pCO2 41.2, ABG pO2 125 H, Lester Test Positive Rhythm: EKG: Sinus rhythm with mildly prolonged QTc. ECHO: Stress Test: Cardiac Cath: PCI: CT Surgery: Holter monitor: EPS: PPM: CXR: Chest CT Scan: Radiography Diagnostic Testing: Radiology Impression Chest X-Ray 01/12/24 14:14 IMPRESSION: The tip of the endotracheal tube is at 4.7 cm proximal to the med. The tip of the nasogastric tube is within the body of the stomach. Electronically Signed: Chico Renteria MD at 14:42 EDT ,
--- NOTE | 2024-01-13 12:25 | ECHOL_ITS ---
Reason For Study: CHF Procedure This was a limited 2D transthoracic echocardiogram. Exam performed portable in ICU/CCU. Left Ventricle Normal size and thickness. The left ventricular ejection fraction is 65 %. Unable to assess diastolic function based on available data. Right Ventricle Normal right ventricle. Atria The left atrium is mildly enlarged. Normal right atrium. Mitral Valve Normal mitral valve. Tricuspid Valve Normal tricuspid valve. Aortic Valve Trisinus/trileaflet aortic valve. Pulmonic Valve The pulmonic valve is not well visualized. Great Vessels Normal sized aortic root. Pericardium/Pleural Trivial pericardial effusion. Epicardial fat. MMode/2D Measurements & Calculations LVIDd: 5.2 cm IVSd: 0.90 cm Ao root diam: 3.1 cm LVIDs: 3.6 cm LVPWd: 0.90 cm RVDd: 2.7 cm FS: 29.7 % LAV(MOD-bp): 41.7 ml LVAd ap4: 23.4 cm2 LVAd ap2: 25.2 cm2 LAV(MOD-bp) Indexed: 22.0 ml/m2 LVLd ap4: 7.4 cm LVLd ap2: 7.4 cm LAV(MOD-sp2): 41.3 ml EDV(MOD-sp4): 62.4 ml EDV(MOD-sp2): 70.2 ml LAV(MOD-sp4): 41.1 ml EDV(sp4-el): 63.1 ml EDV(sp2-el): 72.6 ml LVAs ap4: 12.9 cm2 LVAs ap2: 14.4 cm2 LVLs ap4: 6.0 cm LVLs ap2: 6.4 cm ESV(MOD-sp4): 25.6 ml ESV(MOD-sp2): 29.5 ml ESV(sp4-el): 23.6 ml ESV(sp2-el): 27.4 ml EF(MOD-sp4): 58.9 % EF(MOD-sp2): 58.0 % EF(sp4-el): 62.6 % SV(MOD-sp4): 36.8 ml SV(MOD-sp2): 40.7 ml SV(sp4-el): 39.5 ml LA dimension(2D): 4.3 cm LA A4 area: 16.9 cm2 RA A4 area: 16.6 cm2 ECHO/Echo, Limited Study Interpretation Summary The left ventricular ejection fraction is 65 %. The left atrium is mildly enlarged. This was a limited 2D transthoracic echocardiogram. Ordering Physician: Saurabh Taylor Referring Physician: Susy Funez Performed By: Nubia Jacques, LISANDRO, RVT
--- NOTE | 2024-01-13 15:27 | CASEMGMT ---
[facility] CM chart review: Patient was admitted 01/09-01/11/24 for COPD acute exacerbation. See RN CM assessment from 01/11/24. Patient was discharged at her request as she was feeling better and was maintaining on her home oxygen orders. Patient returned 01/12/24 to [facility] ED for SOB. Patient was placed on continuous Bipap and later required intubation. Patient unable to participate in assessment and no family present at this time. CM will continue to follow this patient and plan for a safe discharge.
[2024-01-13] MEDS: Propofol 10MG/Ml 1,000 MG/100 ML Bottle 7.4 MG CONT INF (18:52)
[2024-01-13] MEDS: Vancomycin Trough/Random Due 1 LAB MC (21:02)
[2024-01-13] MEDS: Ziprasidone HCl 20 MG Capsule 80 MG PO (21:03)
[2024-01-13 21:04] LABS: Vancomycin, Trough Level 17.7 ug/mL (5.0-15.0)
[2024-01-13] MEDS: Atorvastatin Calcium 40 MG Tablet GT (21:04)
[2024-01-13] MEDS: 0.9% Normal Saline (250mL Bag) 250 ML 15 ML IV (21:04)
--- NOTE | 2024-01-13 21:10 | PCM.RX.CS ---
Consult Antibiotic Management Pharmacy has been consulted to manage selected antibiotic: Vancomycin Type of Intervention Type of Consult: Follow-up Labs Labs: Sodium 140 mmol/L (136-145) 01/13/24 08:45 Potassium 4.1 mmol/L (3.5-5.1) 01/13/24 08:45 Chloride 108 mmol/L (98-107) H 01/13/24 08:45 Carbon Dioxide 25.0 mmol/L (21.0-32.0) 01/13/24 08:45 Anion Gap 7 (5-15) 01/13/24 08:45 BUN 32 mg/dL (7-18) H 01/13/24 08:45 Creatinine 1.40 mg/dL (0.55-1.02) H 01/13/24 08:45 Est GFR (MDRD) Af Amer 50 mL/min (>60) L 01/13/24 08:45 Est GFR (MDRD) Non-Af 42 mL/min (>60) L 01/13/24 08:45 BUN/Creatinine Ratio 22.9 RATIO (10-20) H 01/13/24 08:45 Glucose 163 mg/dL (74-106) H 01/13/24 08:45 Vancomycin Trough 17.7 ug/mL (5.0-15.0) H 01/13/24 20:20 Microbiology Microbiology: Microbiology 01/12/24 15:15 Urine Catheter - Lazo Legionella Antigen - Final 01/12/24 15:15 Urine Catheter - Lazo Streptococcus pneumoniae Antigen (M - Final 01/12/24 14:25 Sputum, Induced/Lukens Gram Stain - Final Goal Trough Goal Trough: 15-20 mcg/mL Pharmacy Plan for Drug Dosing Pharmacy Plan for Drug Dosing: Pharmacy Service will continue to monitor and adjust dosing as required. TROUGH 17.7 @ 11.5 HOURS. NO CHANGES, FOLLOW UP TROUGH IN 2 DAYS Follow-Up Labs Follow-Up Labs: Trough: Vancomycin Date/Time Labs Ordered Labs to be done on [date and time ordered]: 01/14@2030
[2024-01-14] VITALS (36 sets, daily range): BP systolic 84–138; BP diastolic 45–77; PULSE 53–82; RESP 7–20; TEMP 36.3–37.3; O2SAT 91–99; BMI 30.5
[2024-01-14] MEDS: CHLORHEXIDINE GLUC 2% CLOTH 1 EACH TOWELETTE TOPICAL (04:40)
[2024-01-14] MEDS: Propofol 10MG/Ml 1,000 MG/100 ML Bottle 9.9 MG CONT INF (04:40)
[2024-01-14] MEDS: fentaNYL drip 100 ML 10 MCG CONT INF (04:40)
[2024-01-14 04:53] LABS: Absolute Neutrophil Count 10.6 X10^3/uL (2.0-7.7); Basophil# 0.01 X10^3/uL; Basophil% 0.1 % (0-1); Hematocrit 29.9 % (37-47); Hemoglobin 10.8 g/dL (12.0-15.0); Lymphocyte % 6.6 % (19-41); Mean Corp Hgb Conc 36.1 g/dL (32-36); Mean Corpuscular Hgb 33.3 pg (27.0-32.0); Mean Corpuscular Volume 92.3 fL (81-99); Mean Platelet Vol. 11.6 fl (6.2-12.0); Monocyte# 0.52 X10^3/uL; Monocyte% 4.3 % (0-10); NRBC Flagged by Analyzer 0.2 % (0-5); Neutrophil # 10.64 X10^3/uL (2.7-7.7); Neutrophil % 88.3 % (47-70); Platelet Count 172 K/mm3 (150-450); RBC Distribution Width CV 15.3 % (11.6-14.6); RBC Distribution Width SD 51.4 fl (35.1-43.9); Red Blood Count 3.24 M/mm3 (4.2-5.4); White Blood Count 12.1 K/mm3 (4.4-11.0)
[2024-01-14 05:17] LABS: Anion Gap 8 (5-15); BUN 36 mg/dL (7-18); BUN/Creat Ratio 22.5 RATIO (10-20); Calcium,Total 7.7 mg/dL (8.5-10.1); Chloride 101 mmol/L (98-107); EST Glomerular Filtration Rate 36 mL/min (>60); Est Glom Filt Rate - Afr Amer 43 mL/min (>60); Estimated Creatinine Clearance 41.31 ml/min; Glucose 157 mg/dL (74-106); Potassium 3.5 mmol/L (3.5-5.1); Sodium Level 138 mmol/L (136-145)
[2024-01-14] MEDS: Furosemide 40 MG/4 ML Vial IV ×2 (06:31→21:05)
[2024-01-14] MEDS: Ipratropium/Albuterol Sulfate 3 ML AMPUL.NEB INHALATION ×5 (07:07→23:32)
--- NOTE | 2024-01-14 07:19 | PN.HOSP_ITS ---
Reason for Visit Reason for Visit: Diagnoses Acidosis, unspecified (01/12/24) Chronic obstructive pulmonary disease, unspecified (01/12/24) Acute respiratory failure with hypoxia (01/12/24) Shock, unspecified (01/12/24) Elevation of levels of liver transaminase levels (01/12/24) Other specified abnormal findings of blood chemistry (01/12/24) Subjective Subjective Patient seen remains on the vent arousable. WBC count trending down. Creatinine going up. Objective Data Objective Data Vital Signs: Vital Signs Temp Pulse Resp BP Pulse Ox O2 Del Method O2 Flow Rate 98.6 F 55 L 16 84/50 L 94 Mechanical Ventilator 14 01/14/24 05:00 01/14/24 07:07 01/14/24 07:07 01/14/24 07:00 01/14/24 07:07 01/14/24 07:00 01/12/24 11:00 FiO2 35 01/14/24 07:07 Oxygen Flow Rate (L/min) 14 Oxygen Delivery Method Mechanical Ventilator Weight: 80.7 kg Body Mass Index (BMI) 30.5 Intake & Output: Intake and Output for Last 24 Hours 01/12/24 01/13/24 01/14/24 23:59 23:59 23:59 Intake Total 3416.87 / 3437.82 1673.10 / 1698.60 181.60 / 181.60 Output Total 1900 / 1999 2585 / 3935 1775 / 1775 Balance 1516.87 / 1437.82 -911.90 / -2236.40 -1593.40 / -1593.40 Lab / Micro Data 01/14/24 04:35 01/14/24 04:35 Labs: Laboratory Results - last 24 hr 01/13/24 08:45: WBC 15.0 H, RBC 3.30 L, Hgb 10.2 L, Hct 30.9 L, MCV 93.6, MCH 30.9, MCHC 33.0, RDW Std Deviation 52.4 H, RDW Coeff of Joseph 15.4 H, Plt Count 184, MPV 10.5, Sodium 140, Potassium 4.1, Chloride 108 H, Carbon Dioxide 25.0, Anion Gap 7, BUN 32 H, Creatinine 1.40 H, Estim Creat Clear Calc 47.67, Est GFR (MDRD) Af Amer 50 L, Est GFR (MDRD) Non-Af 42 L, BUN/Creatinine Ratio 22.9 H, G lucose 163 H, Calcium 8.1 L, Phosphorus 3.2, Magnesium 1.8, Total Bilirubin 0.50, AST 53 H, ALT 49, Alkaline Phosphatase 50, Total Protein 5.5 L, Albumin 2.7 L, Globulin 2.8, Albumin/Globulin Ratio 1.0 01/13/24 20:20: Vancomycin Trough 17.7 H 01/14/24 04:35: WBC 12.1 H, RBC 3.24 L, Hgb 10.8 L, Hct 29.9 L, MCV 92.3, MCH 33.3 H, MCHC 36.1 H D, RDW Std Deviation 51.4 H, RDW Coeff of Joseph 15.3 H, Plt Count 172, MPV 11.6, Immature Gran % (Auto) 0.700, Neut % (Auto) 88.3 H, Lymph % (Auto) 6.6 L, [place] % (Auto) 4.3, Eos % (Auto) 0.0, Baso % (Auto) 0.1, Absolute Neuts (auto) 10.6 H, Absolute Lymphs (auto) 0.80 L, Nucleated RBC % 0.2, Sodium 138, Potassium 3.5, Chloride 101, Carbon Dioxide 29.0, Anion Gap 8, BUN 36 H, C reatinine 1.60 H, Estim Creat Clear Calc 41.31, Est GFR (MDRD) Af Amer 43 L, Est GFR (MDRD) Non-Af 36 L, BUN/Creatinine Ratio 22.5 H, Glucose 157 H, Calcium 7.7 L Micro: Microbiology 01/12/24 15:15 Urine Catheter - Lazo Legionella Antigen - Final 01/12/24 15:15 Urine Catheter - Lazo Streptococcus pneumoniae Antigen (M - Final 01/12/24 14:25 Sputum, Induced/Lukens Gram Stain - Final ABG Data ABG results: ABG 01/13/24 12:09 Specimen Type ART Sample Site L Brach pH 7.42 Bicarbonate Actual 27.0 H Total CO2 28 Base Excess 3 H O2 Saturation 99 O2 % 45.0 ABG pCO2 41.2 ABG pO2 125 H Lester Test Positive Respiration Rate 16 O2 Delivery Device ET Tube Vent Mode AC Tidal Volume 400.0 POC PEEP 8 Rhythm Strip Rhythm Strip: Sinus Rhythm Physical Exam Narrative GENERAL: Patient appears ill looking, on BiPAP HEENT: Atraumatic; normocephalic EYES; Anicteric, Normal Conjunctiva NECK; supple, normal thyroid, RESPIRATORY: Diminished to auscultation CARDIOVASCULAR: Regular S1 S2, GI: soft, normoactive bowel sounds, : No Renal angle tenderness; EXTREMITIES: No edema, no clubbing, MUSCULOSKELETAL: no muscle wasting NEURO: Awake; no lateralizing signs. SKIN: No Rash PSYCH; Flat affect Assessment & Plan Assessment/Plan (1) Acute hypoxic respiratory failure: PLAN: Plan Patient is a 53-year-old lady who was discharged from the hospital per her request following admission for acute hypoxia secondary to suspected COPD. Presented back to the hospital with worsening respiratory status. 1. Acute hypoxic respiratory failure ? Secondary to combination of pneumonia with suspected gram-negative organisms, fluid overload and COPD with acute exacerbation. CT of the chest obtained on admission did show Consolidation in the left lower lung suspicious for pneumonia. Moderate emphysematous change. Lower lung predominant mild interstitial edema with small layering right effusion. Groundglass attenuation within the lower lobes is most consistent with alveolar edema. Patient was placed on noninvasive ventilation BiPAP admitted to the intensive care unit with treatment of the underlying etiology. -01/13/2024;Patient clinical condition worsen necessitating patient being intubated. Patient remains on the vent Vent management deferred to telemetry ICU ? 01/14/2024; patient remains on the vent 2. Pneumonia -With suspected multidrug-resistant organisms., Blood and sputum cultures sent. Vancomycin and levofloxacin in addition to supplemental oxygen via BiPAP ? 01/13/2024 patient had to be placed on the vent given her rapid respiratory deterioration. WBC count trending down ? 01/14/2024; WBC count continues to improve 3. Acute on chronic congestive heart failure with preserved ejection fraction Patient has known history of Takotsubo cardiomyopathy ;? Echo repeated on 12/28/2023 demonstrated significant recovery with ejection fraction of 65%From an ejection fraction of 20% on 11/07/2023 CT of the chest obtained demonstrated alveolar edema patient placed on noninvasive ventilation diuretic therapy with furosemide, low-sodium diet, fluid restriction Daily weight strict input and output 4. Sepsis ? Secondary to pneumonia patient has evidence of sepsis in addition to endorgan dysfunction with lactic acidosis and respiratory failure. Patient was managed with broad-spectrum antibiotic therapy per protocol. Patient did not receive 30 mL/kg fluid resuscitation in view of her concomitant congestive heart failure ? 01/13/2024. Patient clinical condition deteriorated resulting in patient being placed on the vent 5. COPD with acute exacerbation ? Patient started on bronchodilator treatment, systemic steroid as well as antibiotic therapy. Patient placed on oxygen titrated to keep saturation greater than 90. 6. PSVT ? Patient is on beta-blockers did continue 7. Hypertension ? Blood pressure controlled, home medications continued with dose adjustment as needed 8. Dyslipidemia ?Patient is on statin therapy, continued at home dose 9. Depression with anxiety Patient on sertraline, ziprasidone and hydroxyzine 100 mg nightly at home. 10. Marijuana use ? Patient counseled on cessation 11. Elevated troponin ? Secondary to myocardial ischemia from patient increased work of breathing. 12. DVT prophylaxis ? On enoxaparin 13. Acute kidney injury ? Superimposed on chronic kidney disease stage III. Patient creatinine worsening following initiation of diuretic therapy. Dose of which has been adjusted repeat BMP ordered for a.m. Critical time spent in the patient's overall evaluation,decision-making process, review of diagnostic data, adjustment of management, discussion with other providers, nursing nursing and ancillary staff involved in patient's care documentation, 50 Charges/Coding Procedures Hospitalists Procedures: 46758 Critical Care 1st Hr
[2024-01-14 08:31] LABS: Phosphorus 3.5 mg/dL (2.5-4.9)
[2024-01-14] MEDS: Midodrine HCl 5 MG Tablet 10 MG GT ×3 (08:58→17:42)
[2024-01-14 09:04] LABS: Base Excess 7 mmol/L (-2 to +2); Blood Gas Specimen Type ART; Mode AC; O2 Delivery Device Adult Vent; PEEP 5; PO2 80 mmHG (75-100); RR 16; SITE L Brach; SO2 97 % (95-99); Total Carbon Dioxide 31 mmol/L; pCO2 35.6 mmHg (35-45); pH 7.53 (7.35-7.45)
[2024-01-14] MEDS: Vancomycin IV 500 MG/100 ML BAG 100 MG IV ×2 (09:53→21:01)
[2024-01-14] MEDS: 0.9% Saline Lock 10 ML Syringe IV ×4 (09:54→21:18)
[2024-01-14] MEDS: hydrOXYzine PAM 25 MG Capsule 100 MG GT ×2 (09:56→21:04)
[2024-01-14] MEDS: Chlorhexidine 15 ML PO (09:56)
[2024-01-14] MEDS: Sertraline 50 MG Tablet 75 MG GT (09:59)
[2024-01-14] MEDS: Ziprasidone HCl 20 MG Capsule 40 MG PO (09:59)
[2024-01-14] MEDS: Enoxaparin 40 MG/0.4 ML Syringe SC (10:00)
[2024-01-14] MEDS: Losartan Potassium 50 MG Tablet GT (10:00)
[2024-01-14] MEDS: guaiFENesin 1,200 MG Tablet 1200 MG PO ×2 (10:00→21:06)
[2024-01-14] MEDS: Pantoprazole Sodium 40 MG in 0.9% Normal Saline (100mL MB+) 100 ML 330 MG IV ×2 (11:45→21:07)
--- NOTE | 2024-01-14 13:26 | PN.CC_ITS ---
Objective Data Objective Data Vital Signs: Vital Signs Last response 3 Temperature 36.8 C 01/14/24 12:00 Temperature Source Temporal 01/14/24 12:00 Pulse Rate 62 01/14/24 13:00 Pulse Strength Normal (2+) 01/13/24 22:00 Respiratory Rate 9 L 01/14/24 13:00 Respiratory Effort Mechanically Ventilated 01/14/24 12:00 Respiratory Depth Normal 01/14/24 12:00 Respiratory Pattern Normal 01/14/24 12:00 Blood Pressure 123/59 H 01/14/24 13:00 Blood Pressure Mean 80 01/14/24 13:00 Blood Pressure Source Monitor 01/14/24 13:00 Blood Pressure Position Semi-Fowlers 01/14/24 13:00 Blood Pressure Location Left Arm 01/14/24 13:00 Pulse Ox 97 01/14/24 13:00 Oxygen Delivery Method Mechanical Ventilator 01/14/24 13:00 Oxygen Flow Rate (L/min) 14 01/12/24 11:00 Fraction of Inspired Oxygen (FIO2) 30 01/14/24 13:00 I&O: I&O Last 24 Hours 3 01/13/24 01/14/24 01/14/24 23:59 11:59 23:59 Intake Total 1180.88 / 1698.60 411.20 / 411.20 Output Total 2225 / 3935 2325 / 2325 Balance -1044.12 / -2236.40 -1913.80 / -1913.80 I&O: Total Stay 3 01/12/24 03:25 thru 01/14/24 11:00 Intake Total 5501.17 Output Total 6810 Balance -1308.83 Current Meds Ordered / Administered: Current meds ordered / Administered 3 Generic Name Dose Route Start Last Admin Trade Name Freq PRN Reason Stop Dose Admin Acetaminophen 650 mg 01/12/24 16:41 Acetaminophen 650 Mg/20 Ml Udc GT Q6H PRN PRN Pain 1-10 Or Fever>100.7 Albuterol Sulfate 2.5 mg 01/12/24 07:48 01/12/24 17:11 Albuterol 2.5 Mg/3 Ml Vial.Neb. INHALATION 2.5 mg Q2H PRN PRN Administration SOB &/OR WHEEZING Albuterol/Ipratropium 3 ml 01/12/24 07:48 01/14/24 11:23 Ipratropium/Albuterol Sulfate 3 Ml Ampul.Neb INHALATION 3 ml Q4H.RT LAUREL Administration Atorvastatin Calcium 40 mg 01/12/24 22:00 01/13/24 21:04 Atorvastatin Calcium 40 Mg Tablet GT 40 mg QHS LAUREL Administration Carvedilol 6.25 mg 01/12/24 22:00 01/14/24 09:56 Carvedilol 6.25 Mg Tablet GT Not Given BID LAUREL Protocol Chlorhexidine Gluconate 15 ml 01/12/24 22:00 01/14/24 09:56 Chlorhexidine 15 Ml PO 15 ml BID LAUREL Administration Chlorhexidine Gluconate 1 each 01/13/24 10:00 01/14/24 04:40 Chlorhexidine Gluc 2% Cloth 1 Each Towelette TOPICAL 1 each DAILY LAUREL Administration Enoxaparin Sodium 40 mg 01/12/24 10:00 01/14/24 10:00 Enoxaparin 40 Mg/0.4 Ml Syringe SC 40 mg DAILY LAUREL Administration Furosemide 40 mg 01/13/24 14:00 01/14/24 06:31 Furosemide 40 Mg/4 Ml Vial IV 40 mg Q8 LAUREL Administration Protocol Guaifenesin 1,200 mg 01/12/24 10:00 01/14/24 10:00 Guaifenesin 1,200 Mg Tablet PO 1,200 mg BID LAUREL Administration Hydroxyzine Pamoate 100 mg 01/12/24 22:00 01/14/24 09:56 Hydroxyzine Lisa 25 Mg Capsule GT 100 mg BID LAUREL Administration Vancomycin IV-PHARMACY TO DOSE 500 mls @ 250 mls/hr 01/12/24 07:48 1 each/ Sodium Chloride IV X1 PRN Rx to Dose Protocol Sodium Chloride 250 mls @ 15 mls/hr 01/12/24 07:51 01/13/24 21:04 IV 15 mls/hr .[id number] PRN Administration Additional IVPB Infusion Sodium Chloride 250 mls @ 15 mls/hr 01/12/24 07:51 IV .[id number] PRN Saline Flush Vancomycin HCl 500 mg in 100 mls @ 100 mls/hr 01/12/24 21:00 01/14/24 09:53 IV 100 mls/hr Q12H LAUREL Administration Fentanyl 100 mls @ 5 mls/hr 01/12/24 13:45 01/14/24 11:00 CONT INF 0 mcg/hr UD LAUREL 0 mls/hr Titration Protocol 50 MCG/HR Propofol 1,000 mg in 100 mls @ 4.938 mls/hr 01/12/24 13:45 01/14/24 11:00 Diprivan CONT INF 0 mcg/kg/min .Q12H LAUREL 0 mls/hr Titration Protocol 10 MCG/KG/MIN Pantoprazole Sodium 40 mg/ 110 mls @ 330 mls/hr 01/12/24 22:00 01/14/24 11:45 Sodium Chloride IV 330 mls/hr Q12 LAUREL Administration Norepinephrine Bitartrate 8 mg 250 mls @ 9.375 mls/hr 01/12/24 22:35 01/14/24 10:00 / Sodium Chloride CONT INF 0 mcg/min .[id number] LAUREL 0 mls/hr Titration Protocol 5 MCG/MIN Levofloxacin 750 mg 01/15/24 06:00 Levofloxacin 750 Mg Tablet GT Q48@0600 LAUREL Losartan Potassium 50 mg 01/13/24 10:00 01/14/24 10:00 Losartan Potassium 50 Mg Tablet GT 50 mg DAILY LAUREL Administration Protocol Methylprednisolone 40 mg 01/12/24 14:00 01/14/24 06:31 Methylprednisolone 40 Mg/Ml Vial IV 40 mg Q8 LAUREL Administration Midodrine 10 mg 01/14/24 08:00 01/14/24 11:47 Midodrine Hcl 5 Mg Tablet GT 10 mg TIDCM LAUREL Administration Ondansetron HCl 4 mg 01/12/24 07:48 01/12/24 08:01 Ondansetron 4 Mg/2 Ml Vial IV 4 mg Q8H PRN PRN Administration NAUSEA/VOMITING Pantoprazole Sodium 40 mg 01/12/24 10:00 01/14/24 09:59 Pantoprazole Sodium 40 Mg Tablet PO Not Given DAILY LAUREL Promethazine HCl 12.5 mg 01/12/24 08:40 01/12/24 08:48 Promethazine 25 Mg/Ml Syringe IM 12.5 mg Q4H PRN PRN Administration NAUSEA/VOMITING Senna/Docusate Sodium 2 tablet 01/12/24 16:43 Senna/Docusate Sodium 1 Tablet GT BID PRN Constipation Sertraline HCl 75 mg 01/13/24 10:00 01/14/24 09:59 Sertraline 50 Mg Tablet GT 75 mg DAILY LAUREL Administration Sodium Chloride 10 - 40 ml 01/12/24 07:51 01/14/24 11:46 0.9% Saline Lock 10 Ml Syringe IV 10 ml UD PRN Administration SALINE FLUSH Sodium Chloride 5 ml 01/12/24 14:00 Sodium Cl For Inhalation 15 Ml Vial.Neb. INHALATION Q5M PRN Suctioning Vancomycin Protocol 1 lab 01/15/24 18:30 Vancomycin Trough/Random Due MC 01/15/24 22:30 DAILY LAUREL Ziprasidone 40 mg 01/12/24 10:00 01/14/24 09:59 Ziprasidone Hcl 20 Mg Capsule PO 40 mg DAILY LAUREL Administration Ziprasidone 80 mg 01/12/24 22:00 01/13/24 21:03 Ziprasidone Hcl 20 Mg Capsule PO 80 mg QHS LAUREL Administration Lab / Micro Data 01/14/24 04:35 01/14/24 04:35 Labs: Laboratory Results - last 24 hr 01/13/24 20:20: Vancomycin Trough 17.7 H 01/14/24 04:35: WBC 12.1 H, RBC 3.24 L, Hgb 10.8 L, Hct 29.9 L, MCV 92.3, MCH 33.3 H, MCHC 36.1 H D, RDW Std Deviation 51.4 H, RDW Coeff of Joseph 15.3 H, Plt Count 172, MPV 11.6, Immature Gran % (Auto) 0.700, Neut % (Auto) 88.3 H, Lymph % (Auto) 6.6 L, Pepin % (Auto) 4.3, Eos % (Auto) 0.0, Baso % (Auto) 0.1, Absolute Neuts (auto) 10.6 H, Absolute Lymphs (auto) 0.80 L, Nucleated RBC % 0.2, Sodium 138, Potassium 3.5, Chloride 101, Carbon Dioxide 29.0, Anion Gap 8, BUN 36 H, C reatinine 1.60 H, Estim Creat Clear Calc 41.31, Est GFR (MDRD) Af Amer 43 L, Est GFR (MDRD) Non-Af 36 L, BUN/Creatinine Ratio 22.5 H, Glucose 157 H, Calcium 7.7 L, Phosphorus 3.5, Magnesium 2.0 Micro: Microbiology 01/12/24 03:50 Blood Culture (Wb) - Anticubital Right Blood Culture - Preliminary No growth in 48 hours. ABG Data ABG results: ABG 01/14/24 09:00 Specimen Type ART Sample Site L Brach pH 7.53 H Bicarbonate Actual 30.0 H Total CO2 31 Base Excess 7 H O2 Saturation 97 O2 % 35.0 ABG pCO2 35.6 ABG pO2 80 Respiration Rate 16 O2 Delivery Device Adult Vent Vent Mode AC Tidal Volume 400.0 POC PEEP 5 Rhythm Strip Rhythm Strip: Sinus Rhythm Imaging Radiology Impression Echocardiogram 01/13/24 12:25 Interpretation Summary The left ventricular ejection fraction is 65 %. The left atrium is mildly enlarged. This was a limited 2D transthoracic echocardiogram. Ordering Physician: Saurabh Taylor Referring Physician: Susy Funez Performed By: Nubia Jacques, SUSHILACS, RVT Assessment and Plan . Assessment and plan: Acute hypoxic respiratory failure Stress induced cardiomyopathy NSTEMI Sepsis RUFINA AECOPD - much improved as her diuresis is brisk - will change lasix to BID - currently on levofloxacin and vanc - echo for the most part normal as EF 65% Critical Care Time: 45 min The entirety of this encounter was done via Telemedicine Physical Exam Const alert and oriented x3 General Appearance: cooperative and well developed HEENT normocephalic Eyes PERRL Neck full ROM Resp normal respiratory effort and no use of accessory muscles Cardio regular rate and regular rhythm GI normal to inspection, nondistended, normoactive bowel sounds Skin no rashes or lesions noted Neuro oriented x3 and CN's II-XII intact bilaterally Subjective Subjective Patient had no acute events. Patietn is negative 3500 ml Lines - PICC RUE, PIV , Tubes- morin, OG, ETT Gtts - none AC Resp- 400 TV, PEEP 10 , RR 16 , FIO2 - 45 -
[2024-01-14] MEDS: Atorvastatin Calcium 40 MG Tablet GT (21:04)
[2024-01-14] MEDS: Ziprasidone HCl 20 MG Capsule 80 MG PO (21:05)
[2024-01-14] MEDS: 0.9% Normal Saline (250mL Bag) 250 ML 15 ML IV (21:09)
[2024-01-14] MEDS: Senna/Docusate Sodium 1 Tablet 2 TABLET GT (22:34)
[2024-01-14] MEDS: Acetaminophen 650 MG/20 ML UDC GT (22:37)
[2024-01-15] VITALS (16 sets, daily range): BP systolic 109–160; BP diastolic 48–71; PULSE 51–71; RESP 12–18; TEMP 36.1–36.6; O2SAT 92–100; BMI 30.2
[2024-01-15 02:35] LABS: Absolute Lymphocyte Count 0.82 X10^3/uL (0.83-4.51); Absolute Neutrophil Count 11.1 X10^3/uL (2.0-7.7); Basophil# 0.02 X10^3/uL; Basophil% 0.2 % (0-1); Hematocrit 32.6 % (37-47); Hemoglobin 10.8 g/dL (12.0-15.0); Lymphocyte # 0.82 X10^3/ul (0.83-4.51); Lymphocyte % 6.6 % (19-41); Mean Corp Hgb Conc 33.1 g/dL (32-36); Mean Corpuscular Hgb 30.8 pg (27.0-32.0); Mean Corpuscular Volume 92.9 fL (81-99); Mean Platelet Vol. 10.7 fl (6.2-12.0); Monocyte# 0.48 X10^3/uL; Monocyte% 3.8 % (0-10); NRBC Flagged by Analyzer 0.2 % (0-5); Neutrophil # 11.08 X10^3/uL (2.7-7.7); Neutrophil % 88.8 % (47-70); Platelet Count 189 K/mm3 (150-450); RBC Distribution Width CV 15.8 % (11.6-14.6); RBC Distribution Width SD 52.5 fl (35.1-43.9); Red Blood Count 3.51 M/mm3 (4.2-5.4); White Blood Count 12.5 K/mm3 (4.4-11.0)
[2024-01-15 02:47] LABS: Anion Gap 7 (5-15); BUN 39 mg/dL (7-18); Chloride 102 mmol/L (98-107); EST Glomerular Filtration Rate 38 mL/min (>60); Est Glom Filt Rate - Afr Amer 47 mL/min (>60); Estimated Creatinine Clearance 44.06 ml/min; Glucose 166 mg/dL (74-106); Potassium 3.4 mmol/L (3.5-5.1); Sodium Level 141 mmol/L (136-145)
[2024-01-15] MEDS: Potassium Chloride Oral Tablet 20 MEQ 40 MEQ PO (04:08)
[2024-01-15] MEDS: levoFLOXacin 750 MG Tablet GT (05:53)
[2024-01-15] MEDS: 0.9% Saline Lock 10 ML Syringe IV (05:53)
--- NOTE | 2024-01-15 07:16 | PN.CC_ITS ---
Assessment & Plan Assessment/Plan (1) Acute hypoxic respiratory failure: (2) COPD (chronic obstructive pulmonary disease): PLAN: Plan RECOMMENDATIONS: 1. Supplemental oxygen to maintain saturations at or above 90%. 2. Antimicrobials to complete 7 days of therapy. 3. Continue scheduled bronchodilators and steroids. Okay to transition to prednisone 40 mg daily beginning today. 4. Ongoing diuresis as tolerated by hemodynamics and renal function. 5. Encourage incentive spirometer use and mobilize patient as tolerated. 6. The patient is medically stable for transfer out of the intensive care unit. 7. Recommend outpatient pulmonary follow-up within 2 weeks of discharge. IMPRESSIONS: 1. Acute hypoxemic respiratory failure Appears secondary to an acute exacerbation of COPD related to underlying haemophilus influenza infection. The patient has done well following extubation. Recommend continuing supplemental oxygen to maintain saturations at or above 90%. 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 Nevertheless, she is interested in transferring her care here to [facility]. The patient will be continued on antimicrobials to complete 7 days of therapy. In addition, scheduled bronchodilators and steroids will be continued. The patient will be transition to prednisone 40 mg daily, with plans for a 5-day burst at discharge. Continue to encourage incentive spirometer use and mobilize patient as tolerated. Continue gentle diuresis as tolerated by hemodynamics and renal function. 2. History of tobacco dependency, in remission/hypertension/hyperlipidemia/anxiety/depression Complicates care, management, recovery and prognosis. Continue home medications as indicated. This note was generated with [employer] dictation software. It may contain incorrect words, spelling, and punctuation that were not noted in checking the note before signing. Subjective Subjective The patient was seen and examined at the bedside this morning. Events from the last 24 hours have been reviewed. The patient is currently afebrile, hemodynamically stable and maintaining appropriate oxygen saturations on 3 L/min via nasal cannula. The patient has done well from a respiratory perspective following extubation yesterday. She remains on antimicrobials, scheduled bronchodilators and IV steroids, along with twice daily IV Lasix. White count is mildly elevated at 12,000 with a hemoglobin of 10.8 g/dL. Platelet count is within normal limits. Creatinine is stable at 1.5. The patient again reported to me that she has a pre-existing diagnosis of COPD, having previously been under the care of a souvenir street vendor in [place]. However, she readily admitted that it has been quite sometime since she was last seen by her pulmonary provider. She is interested in transferring her care here to [facility]. Objective Data Objective Data The patient's most recent lab work, culture data and imaging studies have all been personally reviewed. Surface echocardiogram demonstrated normal LV size and thickness with an ejection fraction of 65%. Sputum culture dated January 09 was positive for haemophilus influenza. Vital Signs: Vital Signs Temp Pulse Resp BP Pulse Ox O2 Del Method O2 Flow Rate 97.6 F L 60 14 147/71 H 98 Nasal Cannula 3 01/15/24 06:00 01/15/24 06:00 01/15/24 06:00 01/15/24 06:00 01/15/24 06:00 01/15/24 06:00 01/15/24 06:00 FiO2 30 01/14/24 13:00 Oxygen Flow Rate (L/min) 3 Oxygen Delivery Method Nasal Cannula Weight: 177 lb 7.554 oz Body Mass Index (BMI) 30.2 Intake & Output: Intake and Output for Last 24 Hours 01/13/24 01/14/24 01/15/24 23:59 23:59 23:59 Intake Total 1673.10 / 1698.60 1581.20 / 1581.20 500 / 500 Output Total 2585 / 3935 3350 / 3350 550 / 550 Balance -911.90 / -2236.40 -1768.80 / -1768.80 -50 / -50 Lab / Micro Data Attestation: I reviewed the patient's lab results. 01/15/24 02:24 01/15/24 02:24 Labs: Laboratory Results - last 24 hr 01/14/24 04:35: Phosphorus 3.5, Magnesium 2.0 01/15/24 02:24: WBC 12.5 H, RBC 3.51 L, Hgb 10.8 L, Hct 32.6 L, MCV 92.9, MCH 30.8, MCHC 33.1 D, RDW Std Deviation 52.5 H, RDW Coeff of Joseph 15.8 H, Plt Count 189, MPV 10.7, Immature Gran % (Auto) 0.600, Neut % (Auto) 88.8 H, Lymph % (Auto) 6.6 L, [place] % (Auto) 3.8, Eos % (Auto) 0.0, Baso % (Auto) 0.2, Absolute Neuts (auto) 11.1 H, Absolute Lymphs (auto) 0.82 L, Nucleated RBC % 0.2, Sodium 141, Potassium 3.4 L, Chloride 102, Carbon Dioxide 32.0, Anion Gap 7, BUN 39 H, Creatinine 1.50 H, Estim Creat Clear Calc 44.06, Est GFR (MDRD) Af Amer 47 L, E st GFR (MDRD) Non-Af 38 L, BUN/Creatinine Ratio 26.0 H, Glucose 166 H, Calcium 8.0 L Micro: Microbiology 01/12/24 14:25 Sputum, Induced/Lukens Gram Stain - Final 01/12/24 14:25 Sputum, Induced/Lukens Respiratory Culture - Final 01/12/24 03:50 Blood Culture (Wb) - Anticubital Right Blood Culture - Preliminary No growth in 48 hours. 01/12/24 15:15 Urine Catheter - Lazo Legionella Antigen - Final 01/12/24 15:15 Urine Catheter - Lazo Streptococcus pneumoniae Antigen (M - Final ABG Data ABG results: ABG 01/14/24 09:00 Specimen Type ART Sample Site L Brach pH 7.53 H Bicarbonate Actual 30.0 H Total CO2 31 Base Excess 7 H O2 Saturation 97 O2 % 35.0 ABG pCO2 35.6 ABG pO2 80 Respiration Rate 16 O2 Delivery Device Adult Vent Vent Mode AC Tidal Volume 400.0 POC PEEP 5 Radiography Diagnostic Testing: Radiology Impression Echocardiogram 01/13/24 12:25 Interpretation Summary The left ventricular ejection fraction is 65 %. The left atrium is mildly enlarged. This was a limited 2D transthoracic echocardiogram. Ordering Physician: Saurabh Taylor Referring Physician: Susy Funez Performed By: Nubia Jacques, LISANDRO, RVT Rhythm Strip Rhythm Strip: Sinus Rhythm Physical Exam Const alert and no apparent distress General Appearance: cooperative HEENT normocephalic, head/scalp atraumatic and moist oral mucous membranes Eyes PERRL, EOMs intact bilaterally and conjunctivae normal Neck supple General: trachea midline Chest inspection of chest normal Resp normal respiratory effort Auscultation: diminished lung sounds Cardio regular rate and regular rhythm GI normal to inspection, nondistended, normoactive bowel sounds Extremity no clubbing, cyanosis or edema Skin no rashes or lesions noted Neuro CN's II-XII intact bilaterally, moves all extremities and no focal motor deficits Psych cooperative and affect normal Charges/Coding Visit Charges Inpatient E&M: 08597 Subs Hosp L3
[2024-01-15] MEDS: Carvedilol 6.25 MG Tablet GT (09:08)
[2024-01-15] MEDS: hydrOXYzine PAM 25 MG Capsule 100 MG GT (09:09)
[2024-01-15] MEDS: Pantoprazole Sodium 40 MG Tablet PO (09:09)
[2024-01-15] MEDS: Sertraline 50 MG Tablet 75 MG GT (09:09)
[2024-01-15] MEDS: Furosemide 40 MG/4 ML Vial IV (09:09)
[2024-01-15] MEDS: Losartan Potassium 50 MG Tablet GT (09:10)
[2024-01-15] MEDS: Ziprasidone HCl 20 MG Capsule 40 MG PO (09:10)
[2024-01-15] MEDS: guaiFENesin 1,200 MG Tablet 1200 MG PO ×2 (09:11→20:34)
[2024-01-15] MEDS: Enoxaparin 40 MG/0.4 ML Syringe SC (09:11)
--- NOTE | 2024-01-15 10:15 | CASEMGMT ---
HENRY CM in to discuss readmission with patient. Patient states that she was discharged too early, as she had requested to return home and realizes she should have stayed for continued care. Patient states that she filled prescriptions and was taking medications as directed. Patient states she did not schedule follow-up, [facility]. Patient has oxygen through [employer] at 2-3lpm continuously with portability, will monitor for increase in home oxygen. Patient states her significant other is able to help at discharge. Patient has 18 steps to enter apartment. HENRY العراقي called therapy to request treatment with patient and to have patient ambulate stairs. Will monitor for HHC. Patient states she would like to follow with [facility]. Per pulomonology note, patient to follow up within 2 weeks of discharge, unit assembler updated to schedule follow-up. CM will continue to follow this patient and plan for a safe discharge.
[2024-01-15] MEDS: Senna/Docusate Sodium 1 Tablet 2 TABLET GT (10:35)
[2024-01-15] MEDS: Ipratropium/Albuterol Sulfate 3 ML AMPUL.NEB INHALATION ×4 (11:55→23:15)
[2024-01-15] MEDS: Carvedilol 6.25 MG Tablet PO (17:31)
--- NOTE | 2024-01-15 17:53 | PCM.PN.HOSP ---
Reason for Visit Reason for Visit: Diagnoses Acidosis, unspecified (01/12/24) Chronic obstructive pulmonary disease, unspecified (01/12/24) Acute respiratory failure with hypoxia (01/12/24) Shock, unspecified (01/12/24) Elevation of levels of liver transaminase levels (01/12/24) Other specified abnormal findings of blood chemistry (01/12/24) Subjective Subjective Patient was seen and examined today, she is currently on 2 L of oxygen, pulmonary medicine saw her today and recommended her status be changed to PCU. Patient voices no complaints at the time of my examination today. Objective Data Objective Data Vital Signs: Vital Signs Temp Pulse Resp BP Pulse Ox O2 Del Method O2 Flow Rate 97.8 F 71 16 160/59 H 96 Nasal Cannula 2 01/15/24 14:12 01/15/24 17:29 01/15/24 15:20 01/15/24 17:29 01/15/24 15:20 01/15/24 15:20 01/15/24 15:20 FiO2 30 01/14/24 13:00 Oxygen Flow Rate (L/min) 2 Oxygen Delivery Method Nasal Cannula Weight: 80.5 kg Body Mass Index (BMI) 30.2 Intake & Output: Intake and Output for Last 24 Hours 01/13/24 01/14/24 01/15/24 23:59 23:59 23:59 Intake Total 1673.10 / 1698.60 1581.20 / 1581.20 659.25 / 659.25 Output Total 2585 / 3935 3350 / 3350 1850 / 1850 Balance -911.90 / -2236.40 -1768.80 / -1768.80 -1190.75 / -1190.75 Lab / Micro Data 01/15/24 02:24 01/15/24 02:24 Labs: Laboratory Results - last 24 hr 01/15/24 02:24: WBC 12.5 H, RBC 3.51 L, Hgb 10.8 L, Hct 32.6 L, MCV 92.9, MCH 30.8, MCHC 33.1 D, RDW Std Deviation 52.5 H, RDW Coeff of Joseph 15.8 H, Plt Count 189, MPV 10.7, Immature Gran % (Auto) 0.600, Neut % (Auto) 88.8 H, Lymph % (Auto) 6.6 L, [place] % (Auto) 3.8, Eos % (Auto) 0.0, Baso % (Auto) 0.2, Absolute Neuts (auto) 11.1 H, Absolute Lymphs (auto) 0.82 L, Nucleated RBC % 0.2, Sodium 141, Potassium 3.4 L, Chloride 102, Carbon Dioxide 32.0, Anion Gap 7, BUN 39 H, Creatinine 1.50 H, Estim Creat Clear Calc 44.06, Est GFR (MDRD) Af Amer 47 L, Est GFR (MDRD) Non-Af 38 L, BUN/Creatinine Ratio 26.0 H, Glucose 166 H, Calcium 8.0 L Micro: Microbiology 01/12/24 14:25 Sputum, Induced/Lukens Gram Stain - Final 01/12/24 14:25 Sputum, Induced/Lukens Respiratory Culture - Final 01/12/24 03:50 Blood Culture (Wb) - Anticubital Right Blood Culture - Preliminary No growth in 48 hours. 01/12/24 15:15 Urine Catheter - Lazo Legionella Antigen - Final 01/12/24 15:15 Urine Catheter - Lazo Streptococcus pneumoniae Antigen (M - Final Rhythm Strip Rhythm Strip: Sinus Rhythm Physical Exam Const alert, oriented x3 and no apparent distress Constitutional Narrative: Patient appears older than her stated age General Appearance: cooperative, well kempt and well developed Orientation / Consciousness: awake, oriented to person, oriented to place and oriented to time HEENT normocephalic, head/scalp atraumatic and moist oral mucous membranes Eyes PERRL, EOMs intact bilaterally and conjunctivae normal Neck supple, no JVD, thyroid normal and no carotid bruits General: trachea midline Resp normal respiratory effort, no retractions, no use of accessory muscles and clear to auscultation bilaterally Auscultation: Negative for rales, rhonchi or wheezes Cardio regular rate, regular rhythm, S1 normal heart sound, S2 normal heart sound, no murmurs, no rub and no gallops GI normal to inspection, nondistended, normoactive bowel sounds, soft to palpation, non-tender and non-distended Extremity no clubbing, cyanosis or edema Skin no rashes or lesions noted General Skin Exam: no breakdown Neuro oriented x3, CN's II-XII intact bilaterally, moves all extremities, no focal motor deficits and no sensory deficits noted Sensorium / Orientation: awake and alert Speech: speech normal Psych affect normal Assessment & Plan Assessment/Plan (1) COPD (chronic obstructive pulmonary disease): PLAN: Plan 1. Acute on chronic hypoxic respiratory failure-secondary to acute exacerbation of COPD and haemophilus influenza pneumonia-patient will continue on present treatment including IV Lasix and antibiotics and aerosol treatments at this time. She will also remain on corticosteroids. #2 chronic obstructive pulmonary disease with exacerbation-complicates care, management, recovery, and prognosis, continue corticosteroids and aerosol treatments #3 haemophilus influenza pneumonia-continue present antibiotic treatment #4 acute on chronic CHF with preserved ejection fraction-continue IV Lasix #5 sepsis secondary to community-acquired pneumonia-complicates care, management, recovery, and prognosis #6 essential hypertension-patient's medications will be adjusted as needed #7 bipolar disorder-patient will remain on her present medications Total clinical time spent by myself addressing the patient's medical issues, reviewing all of her data, and collaborating with patient's care team: 35 minutes Charges/Coding Visit Charges Inpatient E&M: 02122 Subs Hosp L2
[2024-01-15] MEDS: hydrOXYzine PAM 25 MG Capsule 100 MG PO (20:34)
[2024-01-15] MEDS: Atorvastatin Calcium 40 MG Tablet PO (20:34)
[2024-01-15] MEDS: Senna/Docusate Sodium 1 Tablet 2 TABLET PO (20:35)
[2024-01-15] MEDS: Ziprasidone HCl 20 MG Capsule 80 MG PO (20:35)
[2024-01-16] MEDS: 0.9% Saline Lock 10 ML Syringe IV (01:53)
[2024-01-16 02:00] VITALS: BP 139/64; PULSE 63; RESP 12; TEMP 36.5; O2SAT 99
[2024-01-16 02:10] LABS: Absolute Neutrophil Count 9.9 X10^3/uL (2.0-7.7); Basophil# 0.03 X10^3/uL; Basophil% 0.2 % (0-1); Eosinophil# 0.01 X10^3/uL; Eosinophils% 0.1 % (0-5); Hematocrit 35.7 % (37-47); Hemoglobin 11.8 g/dL (12.0-15.0); Lymphocyte % 18.2 % (19-41); Mean Corp Hgb Conc 33.1 g/dL (32-36); Mean Corpuscular Hgb 30.4 pg (27.0-32.0); Mean Platelet Vol. 10.9 fl (6.2-12.0); Monocyte# 1.12 X10^3/uL; Monocyte% 8.1 % (0-10); NRBC Flagged by Analyzer 0.1 % (0-5); Neutrophil # 9.91 X10^3/uL (2.7-7.7); Platelet Count 182 K/mm3 (150-450); RBC Distribution Width CV 15.2 % (11.6-14.6); RBC Distribution Width SD 50.2 fl (35.1-43.9); Red Blood Count 3.88 M/mm3 (4.2-5.4); White Blood Count 13.8 K/mm3 (4.4-11.0)
[2024-01-16 02:22] LABS: Anion Gap 6 (5-15); BUN 32 mg/dL (7-18); BUN/Creat Ratio 24.4 RATIO (10-20); Calcium,Total 8.4 mg/dL (8.5-10.1); Chloride 101 mmol/L (98-107); Creatinine, Serum 1.31 mg/dL (0.55-1.02); EST Glomerular Filtration Rate 45 mL/min (>60); Est Glom Filt Rate - Afr Amer 54 mL/min (>60); Estimated Creatinine Clearance 50.39 ml/min; Glucose 140 mg/dL (74-106); Potassium 3.5 mmol/L (3.5-5.1); Sodium Level 140 mmol/L (136-145)
[2024-01-16 04:44] VITALS: BMI 30.2
[2024-01-16] MEDS: Ipratropium/Albuterol Sulfate 3 ML AMPUL.NEB INHALATION ×2 (07:19→12:13)
[2024-01-16 07:20] VITALS: PULSE 52; RESP 15; O2SAT 95
[2024-01-16 08:57] VITALS: BP 124/55; PULSE 57; RESP 11; TEMP 36.5; O2SAT 96
[2024-01-16] MEDS: guaiFENesin 1,200 MG Tablet 1200 MG PO (09:00)
[2024-01-16] MEDS: Sertraline 50 MG Tablet 75 MG PO (09:00)
[2024-01-16] MEDS: hydrOXYzine PAM 25 MG Capsule 100 MG PO (09:00)
[2024-01-16] MEDS: Senna/Docusate Sodium 1 Tablet 2 TABLET PO (09:01)
[2024-01-16] MEDS: predniSONE 20 MG Tablet 40 MG PO (09:01)
[2024-01-16] MEDS: Pantoprazole Sodium 40 MG Tablet PO (09:01)
[2024-01-16] MEDS: Enoxaparin 40 MG/0.4 ML Syringe SC (09:02)
[2024-01-16] MEDS: Furosemide 40 MG/4 ML Vial IV (09:02)
[2024-01-16] MEDS: Ziprasidone HCl 20 MG Capsule 40 MG PO (09:02)
[2024-01-16] MEDS: Carvedilol 6.25 MG Tablet PO (09:02)
[2024-01-16] MEDS: Losartan Potassium 50 MG Tablet PO (09:02)
[2024-01-16 10:43] VITALS: O2SAT 94; O2SAT 95
--- NOTE | 2024-01-16 12:00 | CASEMGMT ---
Addendum entered by Ivy Herman 01/16/24 14:35: HENRY العراقي called mother to discuss concerns at discharge. Mother voiced concerns regarding housing and wanted resources for affordable housing for patient with first floor setup. RN DULCE MARIA updated mother regarding progress with therapy and discharge plans. RN CM updated mother that CM will reach out to SW to provided patient with housing resources. Mother had no furhter questions or concerns. HENRY العراقي updated SW. Original Note: HENRY العراقي updated that patient will need be discharging. Patient is maintaining on home oxygen settings. HENRY العراقي reviewed progress with therapy, patient ambulated 300ft sba and was able to ambulate stairs. Patient denied need for HHC or therapy at discharge. Patient aware of follow-up appts. HENRY العراقي updated patient that her mother had left message to discuss needs at discharge. HENRY العراقي asked permission to speak with mother regarding discharge planning. Patient gave permission. Patient had no further questions or concerns.
--- NOTE | 2024-01-16 12:06 | DCINST_ITS ---
Discharge Instructions Diet Discharge Diet: No restrictions Activity Discharge Activity: Return to Normal Activity Weight Bearing Status: Full weight bearing Follow Up Care Test Results: Test results from this visit will be discussed in further detail at your follow- up appointment, if applicable. Discharge Plan Admission Admit Date/Time: 01/12/24 06:24 Primary Reason for Your Visit: pneumonia, COPD exacerbation Attending Provider: Kd Balderrama Primary Care Provider: Susy Funez Consulting Providers: Christine Sung; Bruce Burnett; Saurabh Taylor Instructions Additional Instructions / Restrictions: continue oxygen at 2 liters/min Discharge Orders/Prescriptions Prescriptions: New levofloxacin 750 mg Tablet 750 mg PO Q48@0600 Qty: 3 0RF Rx Instructions: start 01/17/24 prednisone 20 mg Tablet 40 mg PO BREAKFAST Qty: 10 0RF Rx Instructions: take for five more days, then stop Continued losartan 50 mg tablet 50 mg PO QDAY albuterol sulfate 1 INHALER inhaler 2 puff inhalation Q6H PRN (Reason: COPD) ziprasidone HCl 40 mg capsule 40 mg PO DAILY atorvastatin 40 mg tablet 40 mg PO DAILY omeprazole 40 mg capsule,delayed release(DR/EC) 40 mg PO DAILY hydroxyzine pamoate 100 mg capsule 100 mg PO BID ziprasidone HCl 80 mg capsule 80 mg PO QHS sertraline 50 mg tablet 75 mg PO DAILY carvedilol 6.25 mg Tablet 6.25 mg PO BID 30 Days Qty: 60 2RF albuterol sulfate 2.5 mg /3 mL (0.083 %) solution for nebulization 2.5 mg inhalation Q6H PRN (Reason: wheezing) fluticasone propion-salmeterol 100-50 mcg/dose blister with device 1 ea INHALATION BID guaifenesin [Mucus Relief ER] 1,200 mg tablet extended release 12hr 1,200 mg PO BID Qty: 20 0RF Changed furosemide 40 mg tablet 40 mg PO DAILY Qty: 90 3RF Patient Comments: PT STATES SHE TAKES EVERY OTHER DAY Discontinued prednisone 20 mg Tablet 20 mg PO BID 7 Days Qty: 14 0RF doxycycline monohydrate 100 mg Capsule 100 mg PO BID 7 Days Qty: 14 0RF Referrals / Follow Up: Susy Funez MD [Primary Care Provider] - Within 2 Weeks Adry Weller NP, [employer]GER[employer] [Med Staff - Adv Practice Prof] - 02/06/24 9:45 am Disposition Disposition (needs filled in before D/C Order can be placed): Home, Self Care
[2024-01-16 12:14] VITALS: PULSE 58; RESP 16
--- NOTE | 2024-01-16 12:20 | PCM.DC.SUM ---
Providers Date of Admission: 01/12/24 Date of Discharge: 01/16/24 Primary Care Physician: Dr. Susy Funez MD Consultations 01/12/24 07:48 Consult: Sales Office Coordinator / Pulmonary Medicine Routine Consulting Provider: Pulmonary Medicine richy [place] Reason for Consult: Acute hypoxic respiratory failure EMERGENT Consult: No Notified: Yes Date Notified: 01/12/24 Time Notified: 06:26 Method of Notification: Text 01/12/24 13:48 Consult: Cardiology Routine Consulting Provider: Saurabh Taylor Reason for Consult: NSTEMI, heart failure EMERGENT Consult: No Notified: Yes Date Notified: 01/12/24 Time Notified: 13:49 Method of Notification: Answering Service Reason For Visit: ACUTE HYPOXIC RESPIRATORY FAILURE Diagnosis Discharge Diagnosis (1) COPD (chronic obstructive pulmonary disease): Status: Chronic Code(s): J44.9 - Chronic obstructive pulmonary disease, unspecified Plan 1. Acute on chronic hypoxic respiratory failure-secondary to acute exacerbation of COPD and haemophilus influenza pneumonia-patient will continue on present treatment including IV Lasix and antibiotics and aerosol treatments at this time. She will also remain on corticosteroids. #2 chronic obstructive pulmonary disease with exacerbation-complicates care, management, recovery, and prognosis, continue corticosteroids and aerosol treatments #3 haemophilus influenza pneumonia-continue present antibiotic treatment #4 acute on chronic CHF with preserved ejection fraction-continue IV Lasix #5 sepsis secondary to community-acquired pneumonia-complicates care, management, recovery, and prognosis #6 essential hypertension-patient's medications will be adjusted as needed #7 bipolar disorder-patient will remain on her present medications Total clinical time spent by myself addressing the patient's medical issues, reviewing all of her data, and collaborating with patient's care team: 35 minutes Medications at Discharge Home Medications albuterol sulfate 90 mcg/actuation aerosol inhaler 2 puff inhalation Q6H PRN COPD 02/02/19 atorvastatin 40 mg tablet 40 mg PO DAILY cholesterol 11/07/23 hydroxyzine pamoate 100 mg capsule 100 mg PO BID Anxiety 11/07/23 omeprazole 40 mg capsule,delayed release 40 mg PO DAILY GERD 11/07/23 sertraline 50 mg tablet 75 mg PO DAILY Mood 11/07/23 ziprasidone HCl 80 mg capsule 80 mg PO QHS antipsychotic 11/07/23 carvedilol 6.25 mg tablet 6.25 mg PO BID blood pressure 30 days #60 tabs 11/10/23 losartan 50 mg tablet 50 mg PO QDAY blood pressure 11/27/23 ziprasidone HCl 40 mg capsule 40 mg PO DAILY antipsychotic 11/27/23 albuterol sulfate 2.5 mg/3 mL (0.083 %) solution for nebulization 2.5 mg inhalation Q6H PRN wheezing 01/10/24 fluticasone 100 mcg-salmeterol 50 mcg/dose blistr powdr for inhalation 1 ea inhalation BID allergies 01/10/24 guaifenesin 1,200 mg tablet, extended release 12 hr (Mucus Relief ER) 1,200 mg PO BID #20 tabs 01/11/24 furosemide 40 mg tablet 40 mg PO DAILY edema #90 tabs 01/16/24 levofloxacin 750 mg tablet 750 mg PO Q48@0600 #3 tabs 01/16/24 prednisone 20 mg tablet 40 mg (2 x 20 mg) PO BREAKFAST #10 tabs 01/16/24 Hospital Course Operations None Procedures None Summary of Care Provided Minutes Spent on Discharge: 32 Hospital Course: This 53-year-old white female was seen in the emergency room at [facility] with complaints of increasing shortness of breath, she had recently been in the hospital here and treated for a COPD exacerbation with doxycycline. Patient complained of sudden onset of shortness of breath, EMS noted the patient to be profoundly hypoxic with pulse ox in the 70s. Patient was on BiPAP in the emergency room, she had undergone a CTA of the chest 48 hours prior that showed no evidence of pulmonary embolism. Labs showed an elevated white blood cell count of 22.9, blood cultures were obtained and the patient was given an aerosol treatment and Solu-Medrol. She was also placed on IV Rocephin and Zithromax. Chest x-ray indicated the patient had right sided infiltrate which was not present 2 days ago when she was in the hospital. Patient was admitted to ICU 202, she was seen in consultation by pulmonary medicine and antibiotics and aerosol treatments as well as corticosteroids were continued. Patient had improvement over the next several days. Sputum grew out haemophilus influenza. On 01/16/2024, patient was seen and examined: On examination she appeared in good health and spirits, she does not appear to be in any distress. Vital signs as documented. Skin warm and dry and without overt rashes. Neck without JVD, thyroid appears normal, trachea is midline, neck is supple. Lungs clear, normal air movement was noted. Heart exam notable for regular rhythm, normal sounds and absence of murmurs, rubs or gallops. Abdomen unremarkable and without evidence of organomegaly, masses, or abdominal aortic enlargement, bowel sounds are present in all 4 quadrants, no abdominal tenderness was noted. Extremities nonedematous, no cyanosis was noted, no clubbing was noted. Neuro: Cranial nerves II through XII are grossly intact, no focal motor deficits were noted, sensation to light touch and pinprick is intact, motor exam 5/5 throughout. Psych: Patient is alert and oriented x3, she does not appear anxious or depressed, she does not appear agitated. Patient appears stable for discharge home on 01/16/2024. Weight / BMI Weight Weight: 80 kg Body Mass Index (BMI) 30.2 ABG / Lab / Microbiology Data 01/16/24 01:55 01/16/24 01:55 Laboratory: Laboratory Results - last 24 hr 01/16/24 01:55: WBC 13.8 H, RBC 3.88 L, Hgb 11.8 L, Hct 35.7 L, MCV 92.0, MCH 30.4, MCHC 33.1, RDW Std Deviation 50.2 H, RDW Coeff of Joseph 15.2 H, Plt Count 182, MPV 10.9, Immature Gran % (Auto) 1.400 H, Neut % (Auto) 72.0 H, Lymph % (Auto) 18.2 L, [place] % (Auto) 8.1, Eos % (Auto) 0.1, Baso % (Auto) 0.2, Absolute Neuts (auto) 9.9 H, Absolute Lymphs (auto) 2.50, Nucleated RBC % 0.1, Sodium 140, Potassium 3.5, Chloride 101, Carbon Dioxide 33.0 H, Anion Gap 6, BUN 32 H, Creatinine 1.31 H, Estim Creat Clear Calc 50.39, Est GFR (MDRD) Af Amer 54 L, Est GFR (MDRD) Non-Af 45 L, BUN/Creatinine Ratio 24.4 H, Glucose 140 H, Calcium 8.4 L Microbiology: Microbiology 01/12/24 14:25 Sputum, Induced/Lukens Gram Stain - Final 01/12/24 14:25 Sputum, Induced/Lukens Respiratory Culture - Final 01/12/24 03:50 Blood Culture (Wb) - Anticubital Right Blood Culture - Preliminary No growth in 48 hours. 01/12/24 15:15 Urine Catheter - Lazo Legionella Antigen - Final 01/12/24 15:15 Urine Catheter - Lazo Streptococcus pneumoniae Antigen (M - Final D/C Instructions Discharge Diet: No restrictions Weight Bearing Status: Full weight bearing Meaningful Use Info Meaningful Use Meaningful Use Diagnoses (Choose all that apply): None applicable Ischemic Stroke Statin Dosing Therapy Reference: STATIN DOSE THERAPY REFERENCE: * Patients > 75 years receive moderate or high dose statin therapy. * Patients 75 years or YOUNGER should receive HIGH intensity statin dose unless contraindicated. You will be required to document reason for non-treatment if statin daily dose does not meet guidelines. HIGH DOSE STATIN THERAPY DAILY Atorvastatin > than or = to 40 mg Rosuvastatin > than or = to 20 mg Amlodipine + Atorvastatin > than or = to 2.5/40 mg Ezetimibe + Simvastatin 10/80 mg Simvastatin 80mg Discharge Plan Admission Admit Date/Time: 01/12/24 06:24 Primary Reason for Your Visit: pneumonia, COPD exacerbation Attending Provider: Kd Balderrama Primary Care Provider: Susy Funez Consulting Providers: Christine Sung; Bruce Burnett; Saurabh Taylor Instructions Additional Instructions / Restrictions: continue oxygen at 2 liters/min Discharge Orders/Prescriptions Prescriptions: New levofloxacin 750 mg Tablet 750 mg PO Q48@0600 Qty: 3 0RF Rx Instructions: start 01/17/24 prednisone 20 mg Tablet 40 mg PO BREAKFAST Qty: 10 0RF Rx Instructions: take for five more days, then stop Continued losartan 50 mg tablet 50 mg PO QDAY albuterol sulfate 1 INHALER inhaler 2 puff inhalation Q6H PRN (Reason: COPD) ziprasidone HCl 40 mg capsule 40 mg PO DAILY atorvastatin 40 mg tablet 40 mg PO DAILY omeprazole 40 mg capsule,delayed release(DR/EC) 40 mg PO DAILY hydroxyzine pamoate 100 mg capsule 100 mg PO BID ziprasidone HCl 80 mg capsule 80 mg PO QHS sertraline 50 mg tablet 75 mg PO DAILY carvedilol 6.25 mg Tablet 6.25 mg PO BID 30 Days Qty: 60 2RF albuterol sulfate 2.5 mg /3 mL (0.083 %) solution for nebulization 2.5 mg inhalation Q6H PRN (Reason: wheezing) fluticasone propion-salmeterol 100-50 mcg/dose blister with device 1 ea INHALATION BID guaifenesin [Mucus Relief ER] 1,200 mg tablet extended release 12hr 1,200 mg PO BID Qty: 20 0RF Changed furosemide 40 mg tablet 40 mg PO DAILY Qty: 90 3RF Patient Comments: PT STATES SHE TAKES EVERY OTHER DAY Discontinued prednisone 20 mg Tablet 20 mg PO BID 7 Days Qty: 14 0RF doxycycline monohydrate 100 mg Capsule 100 mg PO BID 7 Days Qty: 14 0RF Referrals / Follow Up: Susy Funez MD [Primary Care Provider] - Within 2 Weeks Adry Weller NP, [employer] [Med Staff - [facility]] - 02/06/24 9:45 am Disposition Disposition (needs filled in before D/C Order can be placed): Home, Self Care Charges/Coding Visit Charges Inpatient E&M: 69640 Disch Hosp >30min
--- NOTE | 2024-01-16 14:40 | CASEMGMT ---
Social Work CM had let SW know that pt's family thought pt may benefit from some housing information. Pt was discharged, SW was not able to meet w/pt. SW called pt, gave her the number for [facility] and encouraged her to call. SW also mailed pt some information on [facility]. EM Rodarte
== END 2024-01-16 13:35 | disposition home or self-care (01) | DRG 871 ==
LOC: ED 06:16 → ICU 06:42
PROVIDERS: Internal Medicine; Admitting Provider Internal Medicine; Emergency Provider Emergency Medicine; PCP Internal Medicine; Visit Provider Internal Medicine
DX: A41.3 Sepsis due to Hemophilus influenzae (principal); J96.21 Acute and chronic respiratory failure with hypoxia; I50.33 Acute on chronic diastolic (congestive) heart failure; J14 Pneumonia due to Hemophilus influenzae; I21.A1 Myocardial infarction type 2; I13.0 Hypertensive heart and chronic kidney disease with heart failure and stage 1 through stage 4 chronic kidney disease, or unspecified chronic kidney disease; J44.1 Chronic obstructive pulmonary disease with (acute) exacerbation; J44.0 Chronic obstructive pulmonary disease with (acute) lower respiratory infection; I47.19 Other supraventricular tachycardia; F31.9 Bipolar disorder, unspecified; N18.30 Chronic kidney disease, stage 3 unspecified; E66.9 Obesity, unspecified; K21.9 Gastro-esophageal reflux disease without esophagitis; E78.5 Hyperlipidemia, unspecified; F41.9 Anxiety disorder, unspecified; I25.2 Old myocardial infarction; Z68.31 Body mass index [BMI] 31.0-31.9, adult; Z79.899 Other long term (current) drug therapy; Z86.73 Personal history of transient ischemic attack (TIA), and cerebral infarction without residual deficits; Z87.891 Personal history of nicotine dependence
CPT/HCPCS: 31500; 31720; 36415; 36569; 36600; 71045; 71250; 80048; 80053; 80202; 82550; 82803; 83605; 83735; 83880; 84100; 84145; 84478; 84484; 85025; 85027; 85610; 85730; 87040; 87070; 87205; 87449; 93005; 93308; 94002; 94003; 94640; 94668; 94762; 97110; 97116; 97162; 97163; 97165; 97530; 97535; 97802; 97803; 99252; 99284; J7040; J7050; A4216; G0463; J1940; J2405

== ENCOUNTER 2024-05-24 06:19 | Inpatient (IN) | payer MEDICARE, MEDICAID, SELFPAY ==
[2024-05-24] VITALS (32 sets, daily range): BP systolic 100–174; BP diastolic 66–116; PULSE 71–132; RESP 10–30; TEMP 35.7–37; O2SAT 90–96; BMI 32.4; BMI 30.9
--- NOTE | 2024-05-24 06:36 | EKG12_ITS ---
Test Reason : SOB Blood Pressure : */* mmHG Vent. Rate : 132 BPM Atrial Rate : * BPM P-R Int : * ms QRS Dur : 104 ms QT Int : 340 ms P-R-T Axes : * -24 88 degrees QTcB Int : 503 ms sinus tachycardia Left ventricular hypertrophy with repolarization abnormality ( R in aVL , [place] product ) Abnormal ECG Confirmed by LARRY FRANCO, YVROSE ([id number]), production editor TANYA RASHID ([id number]) on 05/27/2024 7:58:44 AM Referred By: ALONZO Confirmed By: YVROSE JUAREZ MD
--- NOTE | 2024-05-24 06:36 | RAD_ITS ---
EXAM: XR CHEST, 1 VIEW CLINICAL INDICATION: dyspnea TECHNIQUE: Frontal view of the chest. 6:45 AM COMPARISON: Portable chest radiograph of 01/12/2024. FINDINGS: LUNGS AND PLEURAL SPACES: Patchy airspace disease previously seen within the right midlung has cleared. There is mild patchy airspace disease within the right lower lung, less severe than on the prior study. Right pleural effusion has resolved. On the left, mild patchy airspace disease has developed within the left midlung. There is mild/moderate patchy airspace disease in the left lower lung, less severe than on the prior study. Small left pleural effusion persists. There is asymmetric stellate density in the left suprahilar region, slightly greater than on the prior study. No pneumothorax. HEART: Heart size is upper normal with normal pulmonary vasculature. MEDIASTINUM: Central airways and mediastinal contour are unremarkable. BONES/JOINTS: Unremarkable. No acute fracture. SOFT TISSUES: Unremarkable. TUBES, LINES AND DEVICES: Ringlike device in place at the level of the GE junction. RAD/Chest 1 View (Portable) IMPRESSION: 1. Asymmetric bilateral alveolar pulmonary infiltrates, left greater than right, most likely bilateral pneumonia, with asymmetric pulmonary edema felt less likely. 2. Asymmetric density in the left suprahilar region, which is mildly increased since the prior study, possibly due to additional airspace disease/pneumonia, but continued follow-up is recommended to document resolution and to exclude underlying mass. Electronically Signed: Frank Galdamez MD at 7:16 EST ,
[2024-05-24] MEDS: MethylPREDNISolone 125 MG/2 ML Vial IV (06:42)
[2024-05-24 06:43] LABS: Allen Test Positive; Base Excess -16 mmol/L (-2 to +2); Bicarbonate 12.6 mmol/L (22-26); Blood Gas Specimen Type ART; Mode Not entered; O2 Delivery Device NRB; PO2 73 mmHG (75-100); SITE R Radial; SO2 91 % (95-99); Total Carbon Dioxide 14 mmol/L; pH 7.19 (7.35-7.45)
[2024-05-24 06:51] LABS: Absolute Lymphocyte Count 9.78 X10^3/uL (0.83-4.51); Absolute Neutrophil Count 6.3 X10^3/uL (2.0-7.7); Basophil# 0.08 X10^3/uL; Basophil% 0.5 % (0-1); Eosinophil# 0.33 X10^3/uL; Eosinophils% 1.9 % (0-5); Hemoglobin 15.2 g/dL (12.0-15.0); Lymphocyte # 9.78 X10^3/ul (0.83-4.51); Lymphocyte % 55.7 % (19-41); Mean Corp Hgb Conc 32.3 g/dL (32-36); Mean Corpuscular Hgb 30.8 pg (27.0-32.0); Mean Corpuscular Volume 95.3 fL (81-99); Mean Platelet Vol. 10.8 fl (6.2-12.0); Monocyte# 0.93 X10^3/uL; Monocyte% 5.3 % (0-10); NRBC Flagged by Analyzer 0 % (0-5); Neutrophil # 6.31 X10^3/uL (2.7-7.7); Neutrophil % 35.9 % (47-70); POSITIVE DIFFERENTIAL YES; Platelet Count 307 K/mm3 (150-450); RBC Distribution Width CV 14.2 % (11.6-14.6); RBC Distribution Width SD 49.6 fl (35.1-43.9); Red Blood Count 4.93 M/mm3 (4.2-5.4); White Blood Count 17.6 K/mm3 (4.4-11.0)
--- NOTE | 2024-05-24 06:55 | ED.RN ---
Pt triggering sepsis checklist, Dr. Guevara made aware. No new orders at this time.
[2024-05-24] MEDS: Albuterol 2.5 MG/3 ML VIAL.NEB. INHALATION (07:01)
[2024-05-24] MEDS: Ipratropium/Albuterol Sulfate 3 ML AMPUL.NEB INHALATION ×3 (07:01→19:15)
[2024-05-24 07:06] LABS: Anion Gap 18 (5-15); BUN 7 mg/dL (7-18); BUN/Creat Ratio 4.8 RATIO (10-20); Calcium,Total 8.8 mg/dL (8.5-10.1); Chloride 107 mmol/L (98-107); Creatinine, Serum 1.45 mg/dL (0.55-1.02); EST Glomerular Filtration Rate 40 mL/min (>60); Est Glom Filt Rate - Afr Amer 48 mL/min (>60); Estimated Creatinine Clearance 47.01 ml/min; Glucose 274 mg/dL (74-106); Magnesium 2.2 mg/dL (1.6-2.6); Potassium 3.7 mmol/L (3.5-5.1); Sodium Level 140 mmol/L (136-145)
[2024-05-24] MEDS: LORazepam 2 MG/ML Syringe 0.5 MG IV (07:19)
[2024-05-24] MEDS: Morphine 4 MG/ML Syringe IV (07:19)
[2024-05-24] MEDS: Ondansetron 4 MG/2 ML Vial IV (07:19)
--- NOTE | 2024-05-24 07:26 | ED.RN ---
NEW ORDERS IN AT THIS TIME
[2024-05-24 07:33] LABS: Differential Indicated SCAN CRITERIA MET
[2024-05-24 07:40] LABS: BNP,B-Type NATRIURETIC PEPTIDE 491.3 pg/mL (0-100)
--- NOTE | 2024-05-24 07:46 | HP.PCM.HOS_ITS ---
HPI - General General Date of Admission: 05/24/24 Date of Service: 05/24/24 Chief Complaint: Shortness of breath HPI Narrative RAYMON HAAS, is a 53 F who presents with past medical history significant for Takotsubo cardiomyopathy, essential hypertension, depression with anxiety who presented to the emergency department with shortness of breath. Per patient she was in her usual state of health the day prior to coming in. She had developed some intermittent cough but denied any fever nor chills. On the morning of admission she woke up with significant difficulty breathing. She presented to the emergency department as a result. Imaging studies obtained did show Asymmetric bilateral alveolar pulmonary infiltrates. Patient was also found to have elevated WBC count of 17,000, ABGs obtained did show metabolic acidosis. Patient was placed on noninvasive ventilation BiPAP admitted to the intensive care unit. [facility] Medical History Shock Elevated troponin Transaminitis Non-ST elevation DC (NSTEMI) Pneumonia Takotsubo cardiomyopathy Bipolar disorder Anxiety Depression Osteoarthritis Kidney stones Hx of gastroesophageal reflux (GERD) Smoker BiPAP (biphasic positive airway pressure) dependence Asthma Myocardial infarct Chest pain Stroke/cerebrovascular accident Migraines Seizures Ulcerative colitis Hypertension COPD (chronic obstructive pulmonary disease) Home Medications ?Medication ?Instructions ?Recorded ?Last Taken ?Type albuterol sulfate 90 mcg/actuation 2 puff inhalation Q6H PRN COPD 02/02/19 01/09/24 History aerosol inhaler atorvastatin 40 mg tablet 40 mg PO QHS cholesterol 11/07/23 05/23/24 History hydroxyzine pamoate 100 mg capsule 100 mg PO BID Anxiety 11/07/23 05/23/24 History omeprazole 40 mg capsule,delayed 40 mg PO DAILY GERD 11/07/23 05/23/24 History release sertraline 50 mg tablet 75 mg PO DAILY Mood 11/07/23 05/23/24 History ziprasidone HCl 80 mg capsule 80 mg PO QHS antipsychotic 11/07/23 05/23/24 History carvedilol 6.25 mg tablet 6.25 mg PO BID blood pressure 30 11/10/23 05/23/24 Rx days #60 tabs ziprasidone HCl 40 mg capsule 40 mg PO DAILY antipsychotic 11/27/23 05/23/24 History albuterol sulfate 2.5 mg/3 mL 2.5 mg inhalation Q6H PRN wheezing 01/10/24 01/09/24 History (0.083 %) solution for nebulization fluticasone 100 mcg-salmeterol 50 1 ea inhalation BID allergies 01/10/24 05/23/24 History mcg/dose blistr powdr for inhalation furosemide 40 mg tablet 40 mg PO Q OTHER DAY edema #45 tabs 02/20/24 05/23/24 Rx losartan 50 mg tablet 100 mg PO QDAY blood pressure 02/20/24 05/23/24 History Allergy/AdvReac Type Severity Reaction Status Date / Time meperidine (From Demerol) Allergy Other Verified 05/24/24 06:20 metronidazole (From Flagyl) Allergy Hives Verified 05/24/24 06:20 oxycodone (From Percocet) Allergy Hives Verified 05/24/24 06:20 Penicillins Allergy Hives Verified 05/24/24 06:20 aspirin AdvReac Vomiting Verified 05/24/24 06:20 Family History Mother Myocardial infarction Brother Myocardial infarction Surgical History History of left heart catheterization (~10/2023) Hx of hysterectomy History of appendectomy Social History Smoking Status: Former smoker how long ago did patient quit smoking: Quit 2 weeks ago per patient report on 01/12/2024 alcohol intake: never substance use type: does not use caffeine: Yes (occasionally) ROS ROS Narrative GENERAL: denies fever, chills, night sweats, weight loss, anorexia HEENT: denies headache, sinus congestion, or drainage, dysphagia RESPIRATORY: cough, shortness of breath, CARDIAC: denies chest pain, palpitations, orthopnea, PND GASTROINTESTINAL: denies abdominal pain, nausea, vomiting, melena, GENITOURINARY: denies dysuria, urgency, frequency, heamaturia EXTREMITY: denies swelling MUSCULOSKELETAL: denies current joint pain or tenderness NEUROLOGIC: denies focal numbness, weakness, tingling HEMATOLOGIC: denies easy bruising and/or hemorrhage INTEGUMENT: denies rashes PSYCHIATRIC: denies suicidal or homicidal ideation Vital Signs Vital Signs Vital Signs: 05/24/24 06:20 05/24/24 06:24 05/24/24 06:29 Temperature 96.8 F L 96.8 F L Temperature Source Temporal Temporal Pulse Rate 131 H 132 H Respiratory Rate 24 H 30 H Respiratory Effort Short of Breath Respiratory Depth Shallow Respiratory Pattern Tachypnea Blood Pressure 174/116 H Blood Pressure Mean 135 Pulse Ox 94 94 Oxygen Delivery Method Non-Rebreather Non-Rebreather Non-Rebreather Oxygen Flow Rate (L/min) 15 15 12 05/24/24 06:44 05/24/24 06:45 05/24/24 06:56 Temperature Temperature Source Pulse Rate 123 H 112 H Respiratory Rate 25 H 19 H Respiratory Effort Respiratory Depth Respiratory Pattern Blood Pressure 159/113 H Blood Pressure Mean 128 Pulse Ox 93 93 95 Oxygen Delivery Method Non-Rebreather Non-Rebreather Bi-pap Oxygen Flow Rate (L/min) 10 12 05/24/24 06:59 05/24/24 06:59 05/24/24 07:19 Temperature Temperature Source Pulse Rate 110 H 110 H 110 H Respiratory Rate 20 H 22 H 19 H Respiratory Effort Respiratory Depth Respiratory Pattern Tachypnea Tachypnea Blood Pressure 152/116 H Blood Pressure Mean 128 Pulse Ox 96 90 Oxygen Delivery Method Bi-pap Oxygen Flow Rate (L/min) Weight Weight: 85.8 kg Body Mass Index (BMI) 32.4 Physical Exam Narrative GENERAL: Patient is on BiPAP HEENT: Atraumatic; normocephalic EYES; Anicteric, Normal Conjunctiva NECK; supple, normal thyroid, RESPIRATORY: Diminished to auscultation CARDIOVASCULAR: Regular S1 S2, GI: soft, normoactive bowel sounds, : No Renal angle tenderness; EXTREMITIES: No edema, no clubbing, MUSCULOSKELETAL: no muscle wasting NEURO: Awake; no lateralizing signs. SKIN: No Rash PSYCH; Flat affect Results Lab / Micro Data 05/24/24 06:39 05/24/24 06:39 Labs: Laboratory Results - last 24 hr 05/24/24 06:39: WBC 17.6 H, RBC 4.93, Hgb 15.2 H, Hct 47.0, MCV 95.3, MCH 30.8, MCHC 32.3, RDW Std Deviation 49.6 H, RDW Coeff of Joseph 14.2, Plt Count 307, MPV 10.8, Immature Gran % (Auto) 0.700, Neut % (Auto) 35.9 L, Lymph % (Auto) 55.7 H, [place] % (Auto) 5.3, Eos % (Auto) 1.9, Baso % (Auto) 0.5, Absolute Neuts (auto) 6.3, Absolute Lymphs (auto) 9.78 H, Nucleated RBC % 0, Sodium 140, Potassium 3.7, Chloride 107, Carbon Dioxide 15.0 L, Anion Gap 18 H, BUN 7, Creatinine 1.45 H, Estim Creat Clear Calc 47.01, Est GFR (MDRD) Af Amer 48 L, Est GFR (MDRD) Non-Af 40 L, BUN/Creatinine Ratio 4.8 L, Glucose 274 H, Calcium 8.8, Magnesium 2.2, B-Natriuretic Peptide 491.3 H ABG Data ABG results: ABG 05/24/24 06:39 Specimen Type ART Sample Site R Radial pH 7.19 L* Bicarbonate Actual 12.6 L Total CO2 14 Base Excess -16 L O2 Saturation 91 L O2 % 12.0 ABG pCO2 33.0 L ABG pO2 73 L Lester Test Positive O2 Delivery Device NRB Vent Mode Not entered Crit Call To/Read Back Yes Blood Gas Notified Whom andes Blood Gas Notified Time 06:41:14 Imaging Radiology Impression Chest X-Ray 05/24/24 06:36 IMPRESSION: 1. Asymmetric bilateral alveolar pulmonary infiltrates, left greater than right, most likely bilateral pneumonia, with asymmetric pulmonary edema felt less likely. 2. Asymmetric density in the left suprahilar region, which is mildly increased since the prior study, possibly due to additional airspace disease/pneumonia, but continued follow-up is recommended to document resolution and to exclude underlying mass. Electronically Signed: Frank Galdamez MD at 7:16 EST , Assessment & Plan Assessment/Plan (1) Pneumonia: (2) Acute respiratory failure with hypoxia: PLAN: Plan Patient is a 53-year-old lady who who presented with shortness of breath imaging studies did show asymmetric alveolar infiltrate. Was found to have leukocytosis as well as metabolic acidosis 1. Acute hypoxic respiratory failure ? Secondary to combination of pneumonia with suspected gram-negative organisms, fluid overload and COPD with acute exacerbation. X-ray of the chest obtained on admission did show Asymmetric bilateral alveolar pulmonary infiltrates, left greater than right, most likely bilateral pneumonia, with asymmetric pulmonary edema felt less likely. Patient was placed on noninvasive ventilation BiPAP admitted to the intensive care unit with treatment of the underlying etiology. Consultation placed to pulmonary medicine 2. Pneumonia -With suspected multidrug-resistant organisms., Blood and sputum cultures sent. Vancomycin and levofloxacin in addition to supplemental oxygen via BiPAP 3. Acute on chronic congestive heart failure with preserved ejection fraction Patient has known history of Takotsubo cardiomyopathy ;? Echo repeated on 12/28/2023 demonstrated significant recovery with ejection fraction of 65%From an ejection fraction of 20% on 11/07/2023 CT of the chest obtained demonstrated alveolar edema patient placed on noninvasive ventilation diuretic therapy with furosemide, low-sodium diet, fluid restriction Daily weight strict input and output 4. Sepsis ? Secondary to pneumonia patient has evidence of sepsis in addition to endorgan dysfunction with lactic acidosis and respiratory failure. Patient was managed with broad-spectrum antibiotic therapy per protocol. Patient did not receive 30 mL/kg fluid resuscitation in view of her concomitant congestive heart failure 5. COPD with acute exacerbation ? Patient started on bronchodilator treatment, systemic steroid as well as antibiotic therapy. Patient placed on oxygen titrated to keep saturation greater than 90. 6. History of PSVT ? Patient is on beta-blockers did continue 7. Hypertension ? Blood pressure controlled, home medications continued with dose adjustment as needed 8. Dyslipidemia ?Patient is on statin therapy, continued at home dose 9. Depression with anxiety Patient on sertraline, ziprasidone and hydroxyzine 100 mg nightly at home. 10. Chronic kidney disease stage III Kidney function appears to be at baseline 12. Metabolic acidosis ? Due to combination of patient renal failure as well as sepsis plan is to treat the underlying clinical condition 12. DVT prophylaxis ? On enoxaparin Time spent in the patient's overall evaluation,decision-making process, review of diagnostic data, adjustment of management, discussion with other providers, nursing nursing and ancillary staff involved in patient's care documentation, 75 Advance planning; did discuss with the patient and family regarding advanced directives as well as CODE STATUS. Did explain the various scenarios involved ( FULL CODE, DNR CCA, DNR CCA with no intubation, and DNR CC and what each meant) patient elected to full code with CPR and intubation if warranted. Order was placed. Time spent on discussion 16 minutes. Charges/Coding Multi Select Codes Visit Charges Visit Charges: 57142 Init Hosp L3 Hospitalists' Procedures Procedures: 78836 Advncd Care Plan 30 Min
[2024-05-24] MEDS: levoFLOXacin IV 750 MG/150 ML BAG 100 MG IV (07:54)
--- NOTE | 2024-05-24 07:57 | EX.ED.DYSGE1 ---
HPI History of Present Illness Chief Complaint: Shortness of Breath Informant: patient and EMS Narrative Narrative: Patient is a 53-year-old female with past medical history of hypertension hyperlipidemia Takotsubo cardiomyopathy and COPD. She states she quit smoking in October 2023. She states she has had a few days of nasal congestion and cough but overall has felt well. This morning she awoke and had increased shortness of breath and therefore EMS was called. EMS states when they arrived patient is awake and alert but her pulse ox was approximately 80% on room air. The patient reports she was admitted to the hospital and December 2023 and had to be intubated secondary to difficulty breathing. She has concern that symptoms could progress that far once again and therefore presents for evaluation [facility] Medical History Shock Elevated troponin Transaminitis Non-ST elevation [place] (NSTEMI) Pneumonia Takotsubo cardiomyopathy Bipolar disorder Anxiety Depression Osteoarthritis Kidney stones Hx of gastroesophageal reflux (GERD) Smoker BiPAP (biphasic positive airway pressure) dependence Asthma Myocardial infarct Chest pain Stroke/cerebrovascular accident Migraines Seizures Ulcerative colitis Hypertension COPD (chronic obstructive pulmonary disease) Home Medications ?Medication ?Instructions ?Recorded ?Last Taken ?Type albuterol sulfate 90 mcg/actuation 2 puff inhalation Q6H PRN COPD 02/02/19 01/09/24 History aerosol inhaler atorvastatin 40 mg tablet 40 mg PO DAILY cholesterol 11/07/23 01/09/24 History hydroxyzine pamoate 100 mg capsule 100 mg PO BID Anxiety 11/07/23 01/09/24 History omeprazole 40 mg capsule,delayed 40 mg PO DAILY GERD 11/07/23 01/09/24 History release sertraline 50 mg tablet 75 mg PO DAILY Mood 11/07/23 01/09/24 History ziprasidone HCl 80 mg capsule 80 mg PO QHS antipsychotic 11/07/23 01/09/24 History carvedilol 6.25 mg tablet 6.25 mg PO BID blood pressure 30 11/10/23 01/09/24 Rx days #60 tabs ziprasidone HCl 40 mg capsule 40 mg PO DAILY antipsychotic 11/27/23 01/09/24 History albuterol sulfate 2.5 mg/3 mL 2.5 mg inhalation Q6H PRN wheezing 01/10/24 01/09/24 History (0.083 %) solution for nebulization fluticasone 100 mcg-salmeterol 50 1 ea inhalation BID allergies 01/10/24 01/09/24 History mcg/dose blistr powdr for inhalation furosemide 40 mg tablet 40 mg PO Q OTHER DAY edema #45 tabs 02/20/24 Unknown Rx losartan 50 mg tablet 25 mg PO QDAY blood pressure 02/20/24 Unknown History Allergy/AdvReac Type Severity Reaction Status Date / Time meperidine (From Demerol) Allergy Other Verified 05/24/24 06:20 metronidazole (From Flagyl) Allergy Hives Verified 05/24/24 06:20 oxycodone (From Percocet) Allergy Hives Verified 05/24/24 06:20 Penicillins Allergy Hives Verified 05/24/24 06:20 aspirin AdvReac Vomiting Verified 05/24/24 06:20 Family History Mother Myocardial infarction Brother Myocardial infarction Surgical History History of left heart catheterization (~10/2023) Hx of hysterectomy History of appendectomy Social History Smoking Status: Former smoker how long ago did patient quit smoking: Quit 2 weeks ago per patient report on 01/12/2024 alcohol intake: never substance use type: does not use caffeine: Yes (occasionally) ROS ROS ED Constitutional Constitutional ED: Denies chills or fever(s) ENT ENT ED: Reports rhinorrhea; Denies sore throat Cardiovascular Cardiovascular: Denies chest pain Respiratory/Chest Respiratory/Chest: Reports cough and dyspnea Gastrointestinal Gastrointestinal: Denies abdominal pain, diarrhea, nausea or vomiting Genitourinary Genitourinary ED: Denies dysuria Musculoskeletal Musculoskeletal: Denies myalgias Integumentary Denies rash Neurologic Neurologic: Denies headache(s) Hematologic/Lymphatic Hematologic/Lymphatic: Denies easy bleeding or easy bruising Allergic/Immunologic Allergic/Immunologic ED: Denies mouth swelling or tongue swelling EXAM Physical Exam Const Vital Signs: 05/24/24 06:20 05/24/24 06:24 05/24/24 06:29 Temperature 96.8 F L 96.8 F L Temperature Source Temporal Temporal Pulse Rate 131 H 132 H Respiratory Rate 24 H 30 H Respiratory Effort Short of Breath Respiratory Depth Shallow Respiratory Pattern Tachypnea Blood Pressure 174/116 H Blood Pressure Mean 135 Pulse Ox 94 94 Oxygen Delivery Method Non-Rebreather Non-Rebreather Non-Rebreather Oxygen Flow Rate (L/min) 15 15 12 05/24/24 06:44 05/24/24 06:45 05/24/24 06:56 Temperature Temperature Source Pulse Rate 123 H 112 H Respiratory Rate 25 H 19 H Respiratory Effort Respiratory Depth Respiratory Pattern Blood Pressure 159/113 H Blood Pressure Mean 128 Pulse Ox 93 93 95 Oxygen Delivery Method Non-Rebreather Non-Rebreather Bi-pap Oxygen Flow Rate (L/min) 10 12 05/24/24 06:59 05/24/24 06:59 05/24/24 07:19 Temperature Temperature Source Pulse Rate 110 H 110 H 110 H Respiratory Rate 20 H 22 H 19 H Respiratory Effort Respiratory Depth Respiratory Pattern Tachypnea Tachypnea Blood Pressure 152/116 H Blood Pressure Mean 128 Pulse Ox 96 90 Oxygen Delivery Method Bi-pap Oxygen Flow Rate (L/min) Positive well nourished and well developed Constitutional Narrative: Patient is in moderate respiratory distress with tachypnea and accessory muscle use and tripoding General Appearance ED: well developed and pallor HEENT HEENT Narrative: There is cobblestoning noted in the posterior pharynx consistent with sinus drainage No tongue or lip swelling noted. No airway edema or compromise No obvious signs of infection in the posterior pharynx either Eyes PERRL and EOMs intact bilaterally General Eye ED: Negative for scleral icterus Neck supple and no JVD Neck Narrative: No nuchal rigidity or meningeal sign No subcutaneous emphysema noted Chest Wall palpation of chest normal Chest Narrative: No bony deformity or crepitance or subcutaneous emphysema Resp Resp Narrative: Patient is in moderate to severe respiratory distress with tachypnea accessory muscle use and tripoding Breath sounds are very diminished throughout with faint expiratory wheeze noted in bilateral bases and rhonchi as well in this area Cardio regular rhythm Rate: tachycardic and other Other Details: Radial and carotid pulses are equal and symmetric GI non-tender, non-distended and no masses GI Narrative: Abdomen is soft nontender nondistended with hypoactive bowel sound No voluntary guarding or rigidity or pulsatile mass No fluid wave noted Auscultation: hypoactive bowel sounds Palpation: soft Extremity normal to inspection Extremity Narrative: No asymmetric edema no pitting edema negative Homans' sign bilaterally Neuro oriented x3, CN's II-XII intact bilaterally and no sensory deficits noted Sensorium / Orientation: alert Motor Exam: strength 5/5 throughout Psych Psych Narrative: Patient has a flat affect Skin no rashes or lesions noted Skin Narrative: Skin is pale in color but dry Capillary refill is less than 3 seconds General Skin Exam: pallor MDM MDM MDM Narrative Medical decision making narrative: Patient arrived to the ER in moderate to severe respiratory distress with tachypnea accessory muscle use and tripoding. With her previous history of respiratory failure and need for intubation in December 2023 there is concern that she is having a COPD exacerbation or congestive heart failure flare. There is also concern potential pneumonia or pneumothorax or acute blood loss anemia. As she has had mild congestion and cough for the past 2 days there is also concern for viral infection such as COVID influenza or RSV. Blood work reveals leukocytosis at 17.6 and there is no reported recent steroid use indicating this is most likely infectious. Her proBNP is slightly elevated but she does not have any outward findings of congestive heart failure and previous echocardiogram review reveals an ejection fraction of roughly 60%. Therefore I do feel this is more infectious in nature than fluid overload and patient will be treated with Levaquin and vancomycin secondary to penicillin allergy. She is now requiring BiPAP to keep her pulse ox at 90% or higher and to reduce her work of breathing. With the need for higher level of oxygen therapy than she requires at home she does classify as acute respiratory failure. Secondary to that she will be admitted to the ICU. Case was discussed with the hospitalist who agrees to accept the patient for further care. The case was also discussed with the front desk specialist Dr. Snyder as patient has decompensated on BiPAP before and has required intubation. The plan of care was discussed with the patient and she is agreeable to it. History & Record Review Discussion w/independent historian: EMS personnel and Patient Lab Data Attestation: I reviewed the patient's lab results. Labs: Laboratory Results - last 24 hr 05/24/24 06:39 WBC 17.6 H RBC 4.93 Hgb 15.2 H Hct 47.0 MCV 95.3 MCH 30.8 MCHC 32.3 RDW Std Deviation 49.6 H RDW Coeff of Joseph 14.2 Plt Count 307 MPV 10.8 Immature Gran % (Auto) 0.700 Neut % (Auto) 35.9 L Lymph % (Auto) 55.7 H Zapata % (Auto) 5.3 Eos % (Auto) 1.9 Baso % (Auto) 0.5 Absolute Neuts (auto) 6.3 Absolute Lymphs (auto) 9.78 H Nucleated RBC % 0 Sodium 140 Potassium 3.7 Chloride 107 Carbon Dioxide 15.0 L Anion Gap 18 H BUN 7 Creatinine 1.45 H Estim Creat Clear Calc 47.01 Est GFR (MDRD) Af Amer 48 L Est GFR (MDRD) Non-Af 40 L BUN/Creatinine Ratio 4.8 L Glucose 274 H Calcium 8.8 Magnesium 2.2 B-Natriuretic Peptide 491.3 H ABG Data ABG results: ABG 05/24/24 06:39 Specimen Type ART Sample Site R Radial pH 7.19 L* Bicarbonate Actual 12.6 L Total CO2 14 Base Excess -16 L O2 Saturation 91 L O2 % 12.0 ABG pCO2 33.0 L ABG pO2 73 L Lester Test Positive O2 Delivery Device NRB Vent Mode Not entered Crit Call To/Read Back Yes Blood Gas Notified Whom andes Blood Gas Notified Time 06:41:14 Radiography Diagnostic Testing: Clinical Impression(s) from Imaging Studies Chest X-Ray 05/24/24 06:36 IMPRESSION: 1. Asymmetric bilateral alveolar pulmonary infiltrates, left greater than right, most likely bilateral pneumonia, with asymmetric pulmonary edema felt less likely. 2. Asymmetric density in the left suprahilar region, which is mildly increased since the prior study, possibly due to additional airspace disease/pneumonia, but continued follow-up is recommended to document resolution and to exclude underlying mass. Electronically Signed: Frank Galdamez MD at 7:16 EST , 1 view chest x-ray as interpreted by the emergency medicine reveals reticular opacities in the bilateral lower lobes as well as the left upper lobe most concerning for atypical pneumonia. Management Discussion w/another healthcare provider: Hospitalist and Embedded Software Manager Critical Care Time Critical Care Time: Yes Critical care time (excluding procedures): Discussing w/Patient &/or Family/Credit Administration Specialist, Discussing w/Consultants, Arranging Admission or Transfer and - (Critical care time of 31 minutes) Discharge Plan Triage Chief Complaint: Shortness of Breath ED Provider: Wade Guevara Dx/Rx/DC Orders Clinical Impression: Hypertension, Takotsubo cardiomyopathy, Hyperlipidemia, Acute respiratory failure with hypoxia, Pneumonia Prescriptions: No Action furosemide 40 mg tablet 40 mg PO Q OTHER DAY Qty: 45 3RF Patient Comments: PT STATES SHE TAKES EVERY OTHER DAY losartan 50 mg tablet 25 mg PO QDAY albuterol sulfate 1 INHALER inhaler 2 puff inhalation Q6H PRN (Reason: COPD) ziprasidone HCl 40 mg capsule 40 mg PO DAILY atorvastatin 40 mg tablet 40 mg PO DAILY omeprazole 40 mg capsule,delayed release(DR/EC) 40 mg PO DAILY hydroxyzine pamoate 100 mg capsule 100 mg PO BID ziprasidone HCl 80 mg capsule 80 mg PO QHS sertraline 50 mg tablet 75 mg PO DAILY carvedilol 6.25 mg Tablet 6.25 mg PO BID 30 Days Qty: 60 2RF albuterol sulfate 2.5 mg /3 mL (0.083 %) solution for nebulization 2.5 mg inhalation Q6H PRN (Reason: wheezing) fluticasone propion-salmeterol 100-50 mcg/dose blister with device 1 ea INHALATION BID Primary Care Provider: Susy Funez Referrals: Susy Funez MD [Primary Care Provider] - Print Language: [place] Disposition Disposition: Acute Care Hospital [facility]
[2024-05-24 08:05] LABS: Lactic Acid 6.5 mmol/L (0.4-1.9)
[2024-05-24 08:26] LABS: Polychromasia 1+
[2024-05-24 08:27] LABS: Ovalocyte 1+
[2024-05-24 08:29] LABS: Platelet Estimate ADEQUATE (ADEQ); Platelet Morphology GIANT
--- NOTE | 2024-05-24 08:39 | CON.PCM.CC_ITS ---
Assessment & Plan Assessment/Plan (1) Acute respiratory failure with hypoxia: PLAN: Plan RECOMMENDATIONS: 1. Supplemental oxygen to maintain saturations at or above 90%. 2. BiPAP therapy with naps and nightly. 3. Check respiratory viral panel. 4. Continue empiric antibiotics. 5. Continue scheduled bronchodilators and prednisone daily. 6. Continue appropriate DVT prophylaxis. 7. Encourage incentive spirometer use and mobilize patient as tolerated. 8. If the patient remains clinically stable this morning, she can be transferred out of the medical intensive care unit. IMPRESSIONS: 1. Respiratory failure with hypoxemia Clinical concern for underlying COPD with exacerbation secondary to pneumonia coupled with possible congestive heart failure. The patient received scheduled bronchodilators, IV steroids and antimicrobials and was supported with BiPAP initially. She has improved quite quickly and is maintaining appropriate oxygen saturations on 3 L/min via nasal cannula. She has a self-reported history of COPD with questionable outpatient compliance with medical therapy. She was supposed to follow-up in our pulmonary medicine office in March to establish care, but failed to show for that appointment. For now, I agree with continuing antibiotics, scheduled bronchodilators and steroids. Wean supplemental oxygen to maintain saturations at or above 90%. Given that the patient does have a history of sleep apnea, it would be reasonable to continue BiPAP therapy with naps and nightly. 2. Sepsis The patient presented to the hospital with sepsis due to possible pneumonia with acute sepsis related organ dysfunction as evidenced by lactic acidemia and acute respiratory failure requiring noninvasive positive pressure ventilatory support. The patient has improved from a clinical perspective with BiPAP, bronchodilators, steroids and antimicrobials. She remains hemodynamically stable. 3. History of tobacco dependency/depression/anxiety/chronic kidney disease/hypertension Complicates care, management, recovery and prognosis. Continue home medications as indicated. This note was generated with e[employer] software. It may contain incorrect words, spelling, and punctuation that were not noted in checking the note before signing. HPI Consult Data Date of Consult: 05/24/24 HPI Narrative Reason for Consultation: Respiratory failure HPI Narrative: The patient is a 53-year-old female, with a history as outlined below, who presented to the emergency department on May 24 after awakening from sleep with shortness of breath. The patient was last admitted to the hospital January 11 with acute hypoxemic respiratory failure felt to be secondary to a COPD exacerbation related to haemophilus influenza pneumonia. The patient completed 7 days of antimicrobial therapy and was maintained on bronchodilators and steroids. The patient reported to me during the prior hospitalization that she was under the care of previously of a psychiatric nurse practitioner in [place], but was interested in transferring her care here. Therefore, upon discharge from the hospital, the patient was scheduled to follow-up in our office in March. However, the patient no showed that appointment. The patient reported that she is currently only utilizing Advair twice daily along with as needed albuterol. She does have a history of sleep apnea and is prescribed nocturnal PAP therapy, but readily admits to noncompliance with its use. In addition to the aforementioned, the patient is followed in the cardiology clinic due to a history of Takotsubo cardiomyopathy. She is maintained on a diuretic regimen on an outpatient basis. On presentation to the emergency department, the patient was noted to be tachycardic and tachypneic but was otherwise hemodynamically stable. Laboratory evaluation revealed an elevated white blood cell count to 18,000. Chemistry profile was notable for a bicarbonate of 15, anion gap of 18 and creatinine of 1.45. Lactate was elevated at 6.5. BNP was increased to 491. Procalcitonin was normal. The patient was initially placed on a nonrebreather mask and an ABG was obtained which demonstrated a pH of 7.19 with a pCO2 of 33 and pO2 of 73. Chest x-ray demonstrated asymmetric pulmonary infiltrates. COVID, influenza and RSV PCR's were negative. In light of the patient's respiratory status, the patient was placed on BiPAP therapy. She was subsequently admitted to the medical intensive care unit for further management. On arrival to the ICU, the patient was able to be immediately weaned off of BiPAP and placed on nasal cannula oxygen at 3 L/min. The patient is alert and appropriately interactive. She does report interval improvement in her breathing quality. [facility] Medical History Shock Elevated troponin Transaminitis Non-ST elevation [place] (NSTEMI) Pneumonia Takotsubo cardiomyopathy Bipolar disorder Anxiety Depression Osteoarthritis Kidney stones Hx of gastroesophageal reflux (GERD) Smoker BiPAP (biphasic positive airway pressure) dependence Asthma Myocardial infarct Chest pain Stroke/cerebrovascular accident Migraines Seizures Ulcerative colitis Hypertension COPD (chronic obstructive pulmonary disease) Home Medications ?Medication ?Instructions ?Recorded ?Last Taken ?Type albuterol sulfate 90 mcg/actuation 2 puff inhalation Q6H PRN COPD 02/02/19 01/09/24 History aerosol inhaler atorvastatin 40 mg tablet 40 mg PO DAILY cholesterol 11/07/23 05/23/24 History hydroxyzine pamoate 100 mg capsule 100 mg PO BID Anxiety 11/07/23 05/23/24 History omeprazole 40 mg capsule,delayed 40 mg PO DAILY GERD 11/07/23 05/23/24 History release sertraline 50 mg tablet 75 mg PO DAILY Mood 11/07/23 05/23/24 History ziprasidone HCl 80 mg capsule 80 mg PO QHS antipsychotic 11/07/23 05/23/24 History carvedilol 6.25 mg tablet 6.25 mg PO BID blood pressure 30 11/10/23 05/23/24 Rx days #60 tabs ziprasidone HCl 40 mg capsule 40 mg PO DAILY antipsychotic 11/27/23 05/23/24 History albuterol sulfate 2.5 mg/3 mL 2.5 mg inhalation Q6H PRN wheezing 01/10/24 01/09/24 History (0.083 %) solution for nebulization fluticasone 100 mcg-salmeterol 50 1 ea inhalation BID allergies 01/10/24 05/23/24 History mcg/dose blistr powdr for inhalation furosemide 40 mg tablet 40 mg PO Q OTHER DAY edema #45 tabs 02/20/24 05/23/24 Rx losartan 50 mg tablet 100 mg PO QDAY blood pressure 02/20/24 05/23/24 History Allergy/AdvReac Type Severity Reaction Status Date / Time meperidine (From Demerol) Allergy Other Verified 05/24/24 06:20 metronidazole (From Flagyl) Allergy Hives Verified 05/24/24 06:20 oxycodone (From Percocet) Allergy Hives Verified 05/24/24 06:20 Penicillins Allergy Hives Verified 05/24/24 06:20 aspirin AdvReac Vomiting Verified 05/24/24 06:20 Family History Mother Myocardial infarction Brother Myocardial infarction Surgical History History of left heart catheterization (~10/2023) Hx of hysterectomy History of appendectomy Social History Smoking Status: Former smoker how long ago did patient quit smoking: Quit 2 weeks ago per patient report on 01/12/2024 alcohol intake: never substance use type: does not use caffeine: Yes (occasionally) ROS ROS Narrative 10 systems were reviewed with pertinent positives as noted in the HPI above. Physical Exam Const alert and no apparent distress Constitutional Narrative: Resting comfortably in bed. Obese. General Appearance: cooperative HEENT normocephalic, head/scalp atraumatic and moist oral mucous membranes Eyes PERRL, EOMs intact bilaterally and conjunctivae normal Neck supple General: trachea midline Chest inspection of chest normal Resp normal respiratory effort Auscultation: diminished lung sounds; Negative for rales, rhonchi or wheezes Cardio regular rate and regular rhythm GI normal to inspection, nondistended, normoactive bowel sounds Extremity no clubbing, cyanosis or edema Skin no rashes or lesions noted Neuro CN's II-XII intact bilaterally, moves all extremities and no focal motor deficits Psych Mood & Affect: flat affect Lab / Micro Data 05/24/24 06:39 05/24/24 06:39 Labs: Laboratory Results - last 24 hr 05/24/24 06:39: WBC 17.6 H, RBC 4.93, Hgb 15.2 H, Hct 47.0, MCV 95.3, MCH 30.8, MCHC 32.3, RDW Std Deviation 49.6 H, RDW Coeff of Joseph 14.2, Plt Count 307, MPV 10.8, Immature Gran % (Auto) 0.700, Neut % (Auto) 35.9 L, Lymph % (Auto) 55.7 H, Ocean % (Auto) 5.3, Eos % (Auto) 1.9, Baso % (Auto) 0.5, Absolute Neuts (auto) 6.3, Absolute Lymphs (auto) 9.78 H, Nucleated RBC % 0, Platelet Estimate ADEQUATE, Plt Morphology Comment GIANT, Polychromasia 1+, Ovalocytes 1+, Sodium 140, Potassium 3.7, Chloride 107, Carbon Dioxide 15.0 L, Anion Gap 18 H, BUN 7, Creatinine 1.45 H, Estim Creat Clear Calc 47.01, Est GFR (MDRD) Af Amer 48 L, E st GFR (MDRD) Non-Af 40 L, BUN/Creatinine Ratio 4.8 L, Glucose 274 H, Calcium 8.8, Magnesium 2.2, B-Natriuretic Peptide 491.3 H 05/24/24 07:24: Lactic Acid 6.5 H* Micro: Microbiology 05/24/24 06:39 Mucosa - Nose SARS-CoV-2, Influenza & RSV (PCR) - Final ABG Data ABG results: ABG 05/24/24 06:39 Specimen Type ART Sample Site R Radial pH 7.19 L* Bicarbonate Actual 12.6 L Total CO2 14 Base Excess -16 L O2 Saturation 91 L O2 % 12.0 ABG pCO2 33.0 L ABG pO2 73 L Lester Test Positive O2 Delivery Device NRB Vent Mode Not entered Crit Call To/Read Back Yes Blood Gas Notified Whom andes Blood Gas Notified Time 06:41:14 Imaging Radiology Impression Chest X-Ray 05/24/24 06:36 IMPRESSION: 1. Asymmetric bilateral alveolar pulmonary infiltrates, left greater than right, most likely bilateral pneumonia, with asymmetric pulmonary edema felt less likely. 2. Asymmetric density in the left suprahilar region, which is mildly increased since the prior study, possibly due to additional airspace disease/pneumonia, but continued follow-up is recommended to document resolution and to exclude underlying mass. Electronically Signed: Frank Galdamez MD at 7:16 EST , Sepsis Attestation Sepsis Attestation: Agree w/Sepsis Date exam was performed: 05/24/24 Time exam was performed: 09:53 Possible Source of Sepsis: Pulmonary Sepsis Organ Dysfunction Criteria Present: Acute Respiratory Failure (New need for BiPAP/CPAP or MV) and Lactic Acid > 2 mmol/L Charges/Coding Visit Charges Inpatient E&M: 49433 Init Hosp L3
[2024-05-24 08:44] LABS: Procalcitonin < 0.04 ng/mL (0.00-0.09)
[2024-05-24] MEDS: Vancomycin HCl 1,250 MG in 0.9% Normal Saline (250mL Bag) 250 ML 167 MG IV (08:50)
--- NOTE | 2024-05-24 09:15 | PCM.RX.CS ---
Consult Antibiotic Management Pharmacy has been consulted to manage selected antibiotic: Vancomycin Type of Intervention Type of Consult: New start Suspected Infection Suspected Infection: Pneumonia Labs Labs: Sodium 140 mmol/L (136-145) 05/24/24 06:39 Potassium 3.7 mmol/L (3.5-5.1) 05/24/24 06:39 Chloride 107 mmol/L (98-107) 05/24/24 06:39 Carbon Dioxide 15.0 mmol/L (21.0-32.0) L 05/24/24 06:39 Anion Gap 18 (5-15) H 05/24/24 06:39 BUN 7 mg/dL (7-18) 05/24/24 06:39 Creatinine 1.45 mg/dL (0.55-1.02) H 05/24/24 06:39 Est GFR (MDRD) Af Amer 48 mL/min (>60) L 05/24/24 06:39 Est GFR (MDRD) Non-Af 40 mL/min (>60) L 05/24/24 06:39 BUN/Creatinine Ratio 4.8 RATIO (10-20) L 05/24/24 06:39 Glucose 274 mg/dL (74-106) H 05/24/24 06:39 Microbiology Microbiology: Microbiology 05/24/24 06:39 Mucosa - Nose SARS-CoV-2, Influenza & RSV (PCR) - Final Estimated Creatinine Clearance Estimated Creatinine Clearance: 47.01 Goal Trough Goal Trough: 15-20 mcg/mL Pharmacy Plan for Drug Dosing Pharmacy Plan for Drug Dosing: NEW START IV VANCOMYCIN Consulting Physician: Dr. Burnett Indication: Pneumonia/Respiratory Failure Goal Trough: 15-20 SrCr: 1.45 (05/24/24) CrCl: 47.01 ml/min Comments: Received Vancomycin 1250mg x1 dose in ED @ 08:50 05/24/24 Vancomycin Dose: Vancomycin 500mg Q12H to start @ 21:00 05/25/24 Pending Level: Vancomycin trough @ 20:30 05/25/24 Pharmacy Service will continue to monitor and adjust dosing as required. Follow-Up Labs Follow-Up Labs: Trough: Vancomycin (05/25/24 @ 20:30)
[2024-05-24] MEDS: Carvedilol 6.25 MG Tablet PO ×2 (09:45→20:09)
[2024-05-24] MEDS: Sertraline 50 MG Tablet 75 MG PO (09:45)
[2024-05-24] MEDS: Pantoprazole Sodium 40 MG Tablet PO (09:45)
[2024-05-24] MEDS: Enoxaparin 40 MG/0.4 ML Syringe SC (09:46)
[2024-05-24] MEDS: Losartan Potassium 25 MG Tablet PO (09:46)
[2024-05-24] MEDS: Furosemide 40 MG/4 ML Vial IV (10:49)
[2024-05-24 11:31] LABS: Reflex Lactate? Y
--- NOTE | 2024-05-24 12:08 | CASEMGMT ---
HENRY العراقي Assessment Face to Face with patient for initial transition planning/care coordination assessment. HENRY العراقي introduced self and role at [facility], pt voices understanding. Pt is A&Ox4 and is resting comfortably in bed and is calm. Care providers, pharmacy, and demographics verified. Admitting dx: RF LACE Strata: Not populated yet PCP: Susy Funez Specialists: [facility], [facility]. Dr. Snyder states that the pt did not show up to her previous appt Preferred Pharmacy: [facility] Insurance: PETER HERNANDEZ Prescription Benefit: Yes LNOK: Bibi Soto (Mother), Taqueria (Son), Eliazar Warner (SO) Living Arrangements: Pt lives with her SO in a 2nd story apartment with 18 steps to enter with a handrail. ADLs/IADLs: Ind Transportation: SO, insurance DME: Home oxygen through [employer]. [employer] confirms pt current order states 2L @ rest, 3L w/ Exertion, and 2L HS via NC. Pt has a concentrator, portable tanks, pulse ox, nebulizer, and inhaler. Pt states that her SO can bring in a portable tank at time of DC. HHC/SNF: Hx with [facility] HH. Denies SNF Hx or needs Pt?s goal: Return home Plan: Anticipate return home once medically ready, follow for increase in O2 demands. Pt denies the need for HH, OP Tx, or CCN. Pt states that she feels safe returning home with her SO once she is medically ready and denies further needs at this time. There is no current 6-Click score entered but the pt states that she is completely independent. There is no therapy ordered currently. Care Management to continue to follow. Isaías Haynes RN, CM
[2024-05-24 12:55] LABS: Lactic Acid 1.9 mmol/L (0.4-1.9)
--- NOTE | 2024-05-24 15:56 | SEPSISATNOTE ---
Sepsis Attestation Sepsis Attestation: Agree w/Sepsis Date exam was performed: 05/24/24 Time exam was performed: 07:30 Possible Source of Sepsis: Pulmonary Sepsis Organ Dysfunction Criteria Present: Acute Respiratory Failure (New need for BiPAP/CPAP or MV) and Lactic Acid > 2 mmol/L Fluid Resuscitation Fluid Resuscitation ordered: Lesser volume fluid bolus ordered Amount of fluid ordered: 15 Reason for lesser fluid bolus:: Concern for fluid overload and Heart failure Sepsis Note Date exam was performed: 05/24/24 Time exam was performed: 11:30 Sepsis Attestation: Sepsis re-evaluation was performed
[2024-05-24] MEDS: Atorvastatin Calcium 40 MG Tablet PO (20:09)
[2024-05-24] MEDS: 0.9% Saline Lock 10 ML Syringe IV (20:09)
[2024-05-24] MEDS: Vancomycin IV 500 MG/100 ML BAG 100 MG IV (20:09)
[2024-05-24] MEDS: MELATONIN 3 MG TABLET PO (20:11)
[2024-05-24] MEDS: LORazepam 0.5 MG Tablet PO (21:51)
[2024-05-25] VITALS (17 sets, daily range): BP systolic 98–168; BP diastolic 56–96; PULSE 67–88; RESP 12–22; TEMP 36.2–36.9; O2SAT 93–97; BMI 30.9
[2024-05-25 05:29] LABS: Absolute Neutrophil Count 9.4 X10^3/uL (2.0-7.7); Basophil# 0.01 X10^3/uL; Basophil% 0.1 % (0-1); Hematocrit 37.1 % (37-47); Hemoglobin 12.3 g/dL (12.0-15.0); Lymphocyte % 12.1 % (19-41); Mean Corp Hgb Conc 33.2 g/dL (32-36); Mean Corpuscular Hgb 30.1 pg (27.0-32.0); Mean Corpuscular Volume 90.7 fL (81-99); Mean Platelet Vol. 10.3 fl (6.2-12.0); Monocyte# 0.72 X10^3/uL; Monocyte% 6.2 % (0-10); NRBC Flagged by Analyzer 0 % (0-5); Neutrophil # 9.37 X10^3/uL (2.7-7.7); Neutrophil % 81.2 % (47-70); Platelet Count 212 K/mm3 (150-450); RBC Distribution Width CV 14.1 % (11.6-14.6); RBC Distribution Width SD 46.8 fl (35.1-43.9); Red Blood Count 4.09 M/mm3 (4.2-5.4); White Blood Count 11.6 K/mm3 (4.4-11.0)
[2024-05-25 05:43] LABS: Anion Gap 4 (5-15); BUN 14 mg/dL (7-18); Calcium,Total 8.8 mg/dL (8.5-10.1); Chloride 105 mmol/L (98-107); Creatinine, Serum 1.17 mg/dL (0.55-1.02); EST Glomerular Filtration Rate 51 mL/min (>60); Est Glom Filt Rate - Afr Amer 62 mL/min (>60); Estimated Creatinine Clearance 56.91 ml/min; Glucose 145 mg/dL (74-106); Magnesium 1.7 mg/dL (1.6-2.6); Phosphorus 3.1 mg/dL (2.5-4.9); Potassium 3.7 mmol/L (3.5-5.1); Sodium Level 138 mmol/L (136-145)
--- NOTE | 2024-05-25 07:24 | PN.HOSP_ITS ---
Reason for Visit Reason for Visit: Diagnoses Pneumonia, unspecified organism (05/24/24) Acute respiratory failure with hypoxia (05/24/24) Subjective Subjective Patient seen has been weaned off BiPAP currently on nasal cannula. Plans for patient to be transferred out of the ICU Objective Data Objective Data Vital Signs: Vital Signs Temp Pulse Resp BP Pulse Ox O2 Del Method O2 Flow Rate 98.5 F 67 16 136/56 H 96 Nasal Cannula 3 05/25/24 00:00 05/25/24 07:00 05/25/24 07:00 05/25/24 07:00 05/25/24 07:00 05/25/24 07:00 05/25/24 07:00 FiO2 25 05/25/24 02:55 Oxygen Flow Rate (L/min) 3 Oxygen Delivery Method Nasal Cannula Weight: 82.3 kg Body Mass Index (BMI) 30.9 Intake & Output: Intake and Output for Last 24 Hours 05/23/24 05/24/24 05/25/24 23:59 23:59 23:59 Intake Total 725 / 725 120 / 120 Output Total 525 / 525 Balance 725 / 400 -405 / -405 Lab / Micro Data 05/25/24 05:12 05/25/24 05:12 Labs: Laboratory Results - last 24 hr 05/24/24 06:39: WBC 17.6 H, RBC 4.93, Hgb 15.2 H, Hct 47.0, MCV 95.3, MCH 30.8, MCHC 32.3, RDW Std Deviation 49.6 H, RDW Coeff of Joseph 14.2, Plt Count 307, MPV 10.8, Immature Gran % (Auto) 0.700, Neut % (Auto) 35.9 L, Lymph % (Auto) 55.7 H, Reeves % (Auto) 5.3, Eos % (Auto) 1.9, Baso % (Auto) 0.5, Absolute Neuts (auto) 6.3, Absolute Lymphs (auto) 9.78 H, Nucleated RBC % 0, Platelet Estimate ADEQUATE, Plt Morphology Comment GIANT, Polychromasia 1+, Ovalocytes 1+, B- Natriuretic Peptide 491.3 H 05/24/24 07:24: Lactic Acid 6.5 H*, Procalcitonin < 0.04 05/24/24 12:05: Lactic Acid 1.9 05/25/24 05:12: WBC 11.6 H, RBC 4.09 L, Hgb 12.3, Hct 37.1, MCV 90.7, MCH 30.1, MCHC 33.2, RDW Std Deviation 46.8 H, RDW Coeff of Joseph 14.1, Plt Count 212, MPV 10.3, Immature Gran % (Auto) 0.400, Neut % (Auto) 81.2 H, Lymph % (Auto) 12.1 L, Reeves % (Auto) 6.2, Eos % (Auto) 0.0, Baso % (Auto) 0.1, Absolute Neuts (auto) 9.4 H, Absolute Lymphs (auto) 1.40, Nucleated RBC % 0, Sodium 138, Potassium 3.7, Chloride 105, Carbon Dioxide 29.0, Anion Gap 4 L, BUN 14, Creatinine 1.17 H , Estim Creat Clear Calc 56.91, Est GFR (MDRD) Af Amer 62, Est GFR (MDRD) Non-Af 51 L, BUN/Creatinine Ratio 12.0, Glucose 145 H, Calcium 8.8, Phosphorus 3.1, Magnesium 1.7 Micro: Microbiology 05/24/24 09:18 Mucosa - Nasopharyngeal Respiratory Panel (PCR) - Final 05/24/24 11:15 Urine, Clean Catch Legionella Antigen - Final 05/24/24 11:15 Urine, Clean Catch Streptococcus pneumoniae Antigen (M - Final 05/24/24 09:18 Nasal Secretion MRSA (PCR) - Final 05/24/24 06:39 Mucosa - Nose SARS-CoV-2, Influenza & RSV (PCR) - Final Physical Exam Narrative GENERAL: Cooperative HEENT: Atraumatic; normocephalic EYES; Anicteric, Normal Conjunctiva NECK; supple, normal thyroid, RESPIRATORY: Diminished to auscultation CARDIOVASCULAR: Regular S1 S2, GI: soft, normoactive bowel sounds, : No Renal angle tenderness; EXTREMITIES: No edema, no clubbing, MUSCULOSKELETAL: no muscle wasting NEURO: Awake; no lateralizing signs. SKIN: No Rash PSYCH; Flat affect Assessment & Plan Assessment/Plan (1) Pneumonia: (2) Acute respiratory failure with hypoxia: PLAN: Plan Patient is a 53-year-old lady who who presented with shortness of breath imaging studies did show asymmetric alveolar infiltrate. Was found to have leukocytosis as well as metabolic acidosis 1. Acute hypoxic respiratory failure ? Secondary to combination of pneumonia with suspected gram-negative organisms, fluid overload and COPD with acute exacerbation. X-ray of the chest obtained on admission did show Asymmetric bilateral alveolar pulmonary infiltrates, left greater than right, most likely bilateral pneumonia, with asymmetric pulmonary edema felt less likely. Patient was placed on noninvasive ventilation BiPAP admitted to the intensive care unit with treatment of the underlying etiology. Consultation placed to pulmonary medicine ? Patient has been weaned off BiPAP currently on nasal cannula plan is for patient to be transferred out of the ICU 2. Pneumonia -With suspected multidrug-resistant organisms., Blood and sputum cultures sent. Vancomycin and levofloxacin in addition to supplemental oxygen via BiPAP ? 05/2024; BiPAP weaned 3. Acute on chronic congestive heart failure with preserved ejection fraction Patient has known history of Takotsubo cardiomyopathy ;? Echo repeated on 12/28/2023 demonstrated significant recovery with ejection fraction of 65%From an ejection fraction of 20% on 11/07/2023 CT of the chest obtained demonstrated alveolar edema patient placed on noninvasive ventilation diuretic therapy with furosemide, low-sodium diet, fluid restriction Daily weight strict input and output 4. Sepsis ? Secondary to pneumonia patient has evidence of sepsis in addition to endorgan dysfunction with lactic acidosis and respiratory failure. Patient was managed with broad-spectrum antibiotic therapy per protocol. Patient did not receive 30 mL/kg fluid resuscitation in view of her concomitant congestive heart failure 5. COPD with acute exacerbation ? Patient started on bronchodilator treatment, systemic steroid as well as antibiotic therapy. Patient placed on oxygen titrated to keep saturation greater than 90. 6. History of PSVT ? Patient is on beta-blockers did continue 7. Hypertension ? Blood pressure controlled, home medications continued with dose adjustment as needed 8. Dyslipidemia ?Patient is on statin therapy, continued at home dose 9. Depression with anxiety Patient on sertraline, ziprasidone and hydroxyzine 100 mg nightly at home. 10. Chronic kidney disease stage III Kidney function appears to be at baseline 12. Metabolic acidosis ? Due to combination of patient renal failure as well as sepsis plan is to treat the underlying clinical condition 12. DVT prophylaxis ? On enoxaparin Time spent in the patient's overall evaluation,decision-making process, review of diagnostic data, adjustment of management, discussion with other providers, nursing nursing and ancillary staff involved in patient's care documentation, 52 Charges/Coding Visit Charges Inpatient E&M: 22532 Subs Hosp L3
[2024-05-25] MEDS: Ipratropium/Albuterol Sulfate 3 ML AMPUL.NEB INHALATION ×3 (07:47→20:11)
[2024-05-25] MEDS: predniSONE 20 MG Tablet 40 MG PO (08:24)
[2024-05-25] MEDS: Carvedilol 6.25 MG Tablet PO ×2 (08:24→21:53)
[2024-05-25] MEDS: Losartan Potassium 25 MG Tablet PO (08:25)
[2024-05-25] MEDS: Furosemide 40 MG/4 ML Vial IV (08:25)
[2024-05-25] MEDS: Enoxaparin 40 MG/0.4 ML Syringe SC (08:25)
[2024-05-25] MEDS: Pantoprazole Sodium 40 MG Tablet PO (08:26)
[2024-05-25] MEDS: Sertraline 50 MG Tablet 75 MG PO (08:26)
[2024-05-25] MEDS: 0.9% Saline Lock 10 ML Syringe IV (08:27)
[2024-05-25] MEDS: Vancomycin IV 500 MG/100 ML BAG 100 MG IV ×2 (08:34→21:52)
[2024-05-25] MEDS: levoFLOXacin IV 750 MG/150 ML BAG 100 MG IV (09:48)
--- NOTE | 2024-05-25 14:28 | PCM.PN.TICU ---
Objective Data Objective Data Vital Signs: Vital Signs Last response Temperature 36.6 C 05/25/24 09:00 Temperature Source Temporal 05/25/24 09:00 Pulse Rate 82 05/25/24 13:35 Pulse Strength Normal (2+) 05/24/24 10:00 Respiratory Rate 18 05/25/24 13:35 Respiratory Effort Normal 05/25/24 08:00 Respiratory Depth Normal 05/25/24 08:00 Respiratory Pattern Normal 05/25/24 08:00 Blood Pressure 168/70 H 05/25/24 09:00 Blood Pressure Mean 102 05/25/24 09:00 Blood Pressure Source Monitor 05/25/24 09:00 Blood Pressure Position Sitting 05/25/24 09:00 Blood Pressure Location Right Arm 05/25/24 09:00 Pulse Ox 95 05/25/24 09:00 Oxygen Delivery Method Nasal Cannula 05/25/24 09:00 Oxygen Flow Rate (L/min) 2 05/25/24 09:00 Fraction of Inspired Oxygen (FIO2) 25 05/25/24 02:55 I&O: I&O Last 24 Hours 05/24/24 05/25/24 05/25/24 23:59 11:59 23:59 Intake Total 300 / 725 420 / 570 150 / 570 Output Total 525 / 525 Balance 300 / 400 -105 / 45 150 / 45 I&O: Total Stay 05/24/24 06:19 thru 05/25/24 12:09 Intake Total 1295 Output Total 525 Balance 770 Current Meds Ordered / Administered: Current meds ordered / Administered Generic Name Dose Route Start Last Admin Trade Name Freq PRN Reason Stop Dose Admin Acetaminophen 650 mg 05/24/24 08:43 Acetaminophen 325 Mg Tablet PO Q6H PRN PRN Pain 1-10 Or Fever>100.7 Al Hydroxide/Mg Hydroxide 30 ml 05/24/24 08:43 Mag Hydrox/Al Hydrox/Simeth 30 Ml Udc PO Q6H PRN PRN Gastric Burning Albuterol Sulfate 2.5 mg 05/24/24 08:43 Albuterol 2.5 Mg/3 Ml Vial.Neb. INHALATION Q2H PRN PRN SOB &/OR WHEEZING Albuterol/Ipratropium 3 ml 05/24/24 10:00 05/25/24 13:34 Ipratropium/Albuterol Sulfate 3 Ml Ampul.Neb INHALATION 3 ml Q6HWA.RT LAUREL Administration Atorvastatin Calcium 40 mg 05/24/24 22:00 05/24/24 20:09 Atorvastatin Calcium 40 Mg Tablet PO 40 mg QHS LAUREL Administration Carvedilol 6.25 mg 05/24/24 10:00 05/25/24 08:24 Carvedilol 6.25 Mg Tablet PO 6.25 mg BID LAUREL Administration Protocol Enoxaparin Sodium 40 mg 05/24/24 10:00 05/25/24 08:25 Enoxaparin 40 Mg/0.4 Ml Syringe SC 40 mg DAILY LAUREL Administration Furosemide 40 mg 05/24/24 10:10 05/25/24 08:25 Furosemide 40 Mg/4 Ml Vial IV 40 mg DAILY LAUREL Administration Protocol Guaifenesin 10 ml 05/24/24 08:43 Guaifenesin 10 Ml Udc (200mg/10ml) PO Q4H PRN PRN COUGH Vancomycin IV-PHARMACY TO DOSE 500 mls @ 250 mls/hr 05/24/24 09:00 1 each/ Sodium Chloride IV PRN PRN Rx to Dose Protocol Levofloxacin 750 mg in 150 mls @ 100 mls/hr 05/25/24 10:00 05/25/24 12:09 Levaquin Iv IV 05/31/24 10:01 Infused Q24 LAUREL Infusion Sodium Chloride 100 mls @ 15 mls/hr 05/24/24 08:54 IV .Q6H40M PRN Saline Flush Sodium Chloride 100 mls @ 15 mls/hr 05/24/24 08:54 IV .Q6H40M PRN Additional IVPB Infusion Vancomycin HCl 500 mg in 100 mls @ 100 mls/hr 05/24/24 21:00 05/25/24 09:53 IV Infused Q12H LAUREL Infusion Lorazepam 0.5 mg 05/24/24 22:00 05/24/24 21:51 Lorazepam 0.5 Mg Tablet PO 0.5 mg QHS LAUREL Administration Losartan Potassium 25 mg 05/24/24 10:00 05/25/24 08:25 Losartan Potassium 25 Mg Tablet PO 25 mg DAILY LAUREL Administration Protocol Melatonin 3 mg 05/24/24 22:00 05/24/24 20:11 Melatonin 3 Mg Tablet PO 3 mg QHS PRN PRN Administration INSOMNIA Nitroglycerin 0.4 mg 05/24/24 08:43 Nitroglycerin (Inpatient Use) 0.4 Mg Tab.Subl SL Q5M PRN CARDIAC/CHEST PAIN Ondansetron HCl 4 mg 05/24/24 08:43 Ondansetron 4 Mg/2 Ml Vial IV Q8H PRN PRN NAUSEA/VOMITING Pantoprazole Sodium 40 mg 05/24/24 10:00 05/25/24 08:26 Pantoprazole Sodium 40 Mg Tablet PO 40 mg DAILY LAUREL Administration Prednisone 40 mg 05/25/24 08:00 05/25/24 08:24 Prednisone 20 Mg Tablet PO 40 mg BREAKFAST LAUREL Administration Senna/Docusate Sodium 2 tablet 05/24/24 08:43 Senna/Docusate Sodium 1 Tablet PO BID PRN PRN Constipation Sertraline HCl 75 mg 05/24/24 10:00 05/25/24 08:26 Sertraline 50 Mg Tablet PO 75 mg DAILY LAUREL Administration Sodium Chloride 10 - 40 ml 05/24/24 08:54 05/25/24 08:27 0.9% Saline Lock 10 Ml Syringe IV 30 ml UD PRN Administration SALINE FLUSH Throat Lozenges 1 lozenge 05/24/24 08:43 Benzocaine/Menthol 1 Lozenge MUCOUS MEM Q2H PRN PRN SORE THROAT Vancomycin Protocol 1 lab 05/25/24 18:30 Vancomycin Trough/Random Due MC 05/25/24 22:30 DAILY [facility] Lab / Micro Data Attestation: I reviewed the patient's lab results. 05/25/24 05:12 05/25/24 05:12 Labs: Laboratory Results - last 24 hr 05/25/24 05:12: WBC 11.6 H, RBC 4.09 L, Hgb 12.3, Hct 37.1, MCV 90.7, MCH 30.1, MCHC 33.2, RDW Std Deviation 46.8 H, RDW Coeff of Joseph 14.1, Plt Count 212, MPV 10.3, Immature Gran % (Auto) 0.400, Neut % (Auto) 81.2 H, Lymph % (Auto) 12.1 L, [place] % (Auto) 6.2, Eos % (Auto) 0.0, Baso % (Auto) 0.1, Absolute Neuts (auto) 9.4 H, Absolute Lymphs (auto) 1.40, Nucleated RBC % 0, Sodium 138, Potassium 3.7, Chloride 105, Carbon Dioxide 29.0, Anion Gap 4 L, BUN 14, Creatinine 1.17 H, Estim Creat Clear Calc 56.91, Est GFR (MDRD) Af Amer 62, Est GFR (MDRD) Non-Af 51 L, BUN/Creatinine Ratio 12.0, Glucose 145 H, Calcium 8.8, Phosphorus 3.1, Magnesium 1.7 Micro: Microbiology 05/24/24 09:18 Mucosa - Nasopharyngeal Respiratory Panel (PCR) - Final 05/24/24 11:15 Urine, Clean Catch Legionella Antigen - Final 05/24/24 11:15 Urine, Clean Catch Streptococcus pneumoniae Antigen (M - Final 05/24/24 09:18 Nasal Secretion MRSA (PCR) - Final Assessment and Plan . Assessment and plan: IMPRESSIONS: 1. Respiratory failure with hypoxemia; suspect AECOPD. 2. History of noncompliance with medical regimen and follow up 3. History of tobacco dependency/depression/anxiety/chronic kidney disease/hypertension Complicates care, management, recovery and prognosis. Continue home medications as indicated. RECOMMENDATIONS: 1. Supplemental oxygen to maintain saturations at or above 90%. 2. BiPAP therapy with naps and nightly. 3. follow up respiratory viral panel. 4. Continue empiric antibiotics. 5. Continue scheduled bronchodilators and prednisone daily. 6. Continue appropriate DVT prophylaxis. 7. mobilize patient as tolerated. 8. she can be transferred out of the medical intensive care unit. Critical Care Time: 50 minutes The entirety of this encounter was done via Telemedicine Physical Exam Const alert and no apparent distress General Appearance: cooperative Resp normal respiratory effort Effort and Inspection: able to speak in complete sentences Auscultation: diminished lung sounds Cardio regular rate Subjective Subjective Doing well, no new issues overnight
[2024-05-25 21:23] LABS: Vancomycin, Trough Level 15.4 ug/mL (5.0-15.0)
[2024-05-25] MEDS: LORazepam 0.5 MG Tablet PO (21:52)
[2024-05-25] MEDS: Acetaminophen 325 MG Tablet 650 MG PO (21:52)
[2024-05-25] MEDS: Atorvastatin Calcium 40 MG Tablet PO (21:53)
--- NOTE | 2024-05-25 23:10 | PCM.RX.CS ---
Consult Antibiotic Management Pharmacy has been consulted to manage selected antibiotic: Vancomycin Type of Intervention Type of Consult: Follow-up Suspected Infection Suspected Infection: Pneumonia Labs Labs: Sodium 138 mmol/L (136-145) 05/25/24 05:12 Potassium 3.7 mmol/L (3.5-5.1) 05/25/24 05:12 Chloride 105 mmol/L (98-107) 05/25/24 05:12 Carbon Dioxide 29.0 mmol/L (21.0-32.0) 05/25/24 05:12 Anion Gap 4 (5-15) L 05/25/24 05:12 BUN 14 mg/dL (7-18) 05/25/24 05:12 Creatinine 1.17 mg/dL (0.55-1.02) H 05/25/24 05:12 Est GFR (MDRD) Af Amer 62 mL/min (>60) 05/25/24 05:12 Est GFR (MDRD) Non-Af 51 mL/min (>60) L 05/25/24 05:12 BUN/Creatinine Ratio 12.0 RATIO (10-20) 05/25/24 05:12 Glucose 145 mg/dL (74-106) H 05/25/24 05:12 Vancomycin Trough 15.4 ug/mL (5.0-15.0) H 05/25/24 20:46 Microbiology Microbiology: Microbiology 05/24/24 09:18 Mucosa - Nasopharyngeal Respiratory Panel (PCR) - Final 05/24/24 11:15 Urine, Clean Catch Legionella Antigen - Final 05/24/24 11:15 Urine, Clean Catch Streptococcus pneumoniae Antigen (M - Final 05/24/24 09:18 Nasal Secretion MRSA (PCR) - Final 05/24/24 06:39 Mucosa - Nose SARS-CoV-2, Influenza & RSV (PCR) - Final Dosing Weight Weight used for dosin.3 kg Estimated Creatinine Clearance Estimated Creatinine Clearance: 57 Goal Trough Goal Trough: 15-20 mcg/mL Pharmacy Plan for Drug Dosing Pharmacy Plan for Drug Dosing: Vancomycin trough level of 15.4, drawn 12hrs post-dose, was within the target range of 15-20. Will continue dosing at 500mg q12h, and will draw another trough level in two days. Pharmacy Service will continue to monitor and adjust dosing as required. Follow-Up Labs Follow-Up Labs: Trough: Vancomycin Date/Time Labs Ordered Labs to be done on [date and time ordered]: 05/27/24 @2030
--- NOTE | 2024-05-26 00:04 | CPS ---
Patient refused PAP therapy.
[2024-05-26 04:53] VITALS: BMI 30.7
[2024-05-26 05:24] VITALS: BP 158/74; PULSE 65; RESP 18; TEMP 36.8; O2SAT 99
[2024-05-26] MEDS: Ipratropium/Albuterol Sulfate 3 ML AMPUL.NEB INHALATION (07:10)
[2024-05-26 07:11] VITALS: PULSE 69; RESP 16; O2SAT 94
[2024-05-26 07:19] LABS: Anion Gap 4 (5-15); BUN 18 mg/dL (7-18); BUN/Creat Ratio 15.8 RATIO (10-20); Calcium,Total 8.2 mg/dL (8.5-10.1); Chloride 103 mmol/L (98-107); Creatinine, Serum 1.14 mg/dL (0.55-1.02); EST Glomerular Filtration Rate 53 mL/min (>60); Est Glom Filt Rate - Afr Amer 64 mL/min (>60); Estimated Creatinine Clearance 58.12 ml/min; Glucose 103 mg/dL (74-106); Potassium 3.1 mmol/L (3.5-5.1); Sodium Level 138 mmol/L (136-145)
[2024-05-26 07:58] LABS: Absolute Lymphocyte Count 2.74 X10^3/uL (0.83-4.51); Absolute Neutrophil Count 7.5 X10^3/uL (2.0-7.7); Basophil# 0.01 X10^3/uL; Basophil% 0.1 % (0-1); Hematocrit 36.1 % (37-47); Hemoglobin 12.1 g/dL (12.0-15.0); Lymphocyte # 2.74 X10^3/ul (0.83-4.51); Lymphocyte % 24.7 % (19-41); Mean Corp Hgb Conc 33.5 g/dL (32-36); Mean Corpuscular Hgb 30.3 pg (27.0-32.0); Mean Corpuscular Volume 90.3 fL (81-99); Mean Platelet Vol. 10.6 fl (6.2-12.0); Monocyte# 0.81 X10^3/uL; Monocyte% 7.3 % (0-10); NRBC Flagged by Analyzer 0 % (0-5); Neutrophil % 67.6 % (47-70); Platelet Count 223 K/mm3 (150-450); RBC Distribution Width SD 46.6 fl (35.1-43.9); White Blood Count 11.1 K/mm3 (4.4-11.0)
[2024-05-26 08:07] VITALS: BP 148/73; PULSE 64; RESP 15; TEMP 36.2; O2SAT 94
[2024-05-26] MEDS: Vancomycin IV 500 MG/100 ML BAG 100 MG IV (08:17)
[2024-05-26] MEDS: predniSONE 20 MG Tablet 40 MG PO (08:17)
[2024-05-26] MEDS: Enoxaparin 40 MG/0.4 ML Syringe SC (09:48)
[2024-05-26] MEDS: Pantoprazole Sodium 40 MG Tablet PO (09:48)
[2024-05-26] MEDS: Sertraline 50 MG Tablet 75 MG PO (09:49)
[2024-05-26] MEDS: Carvedilol 6.25 MG Tablet PO (09:50)
[2024-05-26] MEDS: Losartan Potassium 25 MG Tablet PO (09:50)
[2024-05-26] MEDS: Furosemide 40 MG/4 ML Vial IV (09:54)
[2024-05-26] MEDS: 0.9% Saline Lock 10 ML Syringe IV (09:54)
[2024-05-26] MEDS: levoFLOXacin IV 750 MG/150 ML BAG 100 MG IV (09:57)
--- NOTE | 2024-05-26 10:37 | PCM.DC.SUM ---
Providers Date of Admission: 05/24/24 Date of Discharge: 05/26/24 Primary Care Physician: Dr. Susy Funez MD Consultations 05/24/24 08:43 Consult: Kayaking Instructor / Pulmonary Medicine Routine Consulting Provider: Pulmonary Medicine [place]y [place] Reason for Consult: Acute hypoxic respiratory failure EMERGENT Consult: No MD Notified: Yes Date Notified: 05/24/24 Time Notified: 07:52 Method of Notification: ED Physician Initiated Reason For Visit: RESPIRATORY FAILURE Diagnosis Discharge Diagnosis (1) Pneumonia: Status: Acute Code(s): J18.9 - Pneumonia, unspecified organism (2) Acute respiratory failure with hypoxia: Status: Acute Code(s): J96.01 - Acute respiratory failure with hypoxia Plan Patient is a 53-year-old lady who who presented with shortness of breath imaging studies did show asymmetric alveolar infiltrate. Was found to have leukocytosis as well as metabolic acidosis 1. Acute hypoxic respiratory failure ? Secondary to combination of pneumonia with suspected gram-negative organisms, fluid overload and COPD with acute exacerbation. X-ray of the chest obtained on admission did show Asymmetric bilateral alveolar pulmonary infiltrates, left greater than right, most likely bilateral pneumonia, with asymmetric pulmonary edema felt less likely. Patient was placed on noninvasive ventilation BiPAP admitted to the intensive care unit with treatment of the underlying etiology. Consultation placed to pulmonary medicine ? Patient has been weaned off BiPAP currently on nasal cannula plan is for patient to be transferred out of the ICU ? 05/26/2024 patient back to her baseline oxygen requirements patient will be assessed for discharge 2. Pneumonia -With suspected multidrug-resistant organisms., Blood and sputum cultures sent. Vancomycin and levofloxacin in addition to supplemental oxygen via BiPAP ? 05/2024; BiPAP weaned 3. Acute on chronic congestive heart failure with preserved ejection fraction Patient has known history of Takotsubo cardiomyopathy ;? Echo repeated on 12/28/2023 demonstrated significant recovery with ejection fraction of 65%From an ejection fraction of 20% on 11/07/2023 CT of the chest obtained demonstrated alveolar edema patient placed on noninvasive ventilation diuretic therapy with furosemide, low-sodium diet, fluid restriction Daily weight strict input and output 4. Sepsis ? Secondary to pneumonia patient has evidence of sepsis in addition to endorgan dysfunction with lactic acidosis and respiratory failure. Patient was managed with broad-spectrum antibiotic therapy per protocol. Patient did not receive 30 mL/kg fluid resuscitation in view of her concomitant congestive heart failure 5. COPD with acute exacerbation ? Patient started on bronchodilator treatment, systemic steroid as well as antibiotic therapy. Patient placed on oxygen titrated to keep saturation greater than 90. 6. History of PSVT ? Patient is on beta-blockers did continue 7. Hypertension ? Blood pressure controlled, home medications continued with dose adjustment as needed 8. Dyslipidemia ?Patient is on statin therapy, continued at home dose 9. Depression with anxiety Patient on sertraline, ziprasidone and hydroxyzine 100 mg nightly at home. 10. Chronic kidney disease stage III Kidney function appears to be at baseline 12. Metabolic acidosis ? Due to combination of patient renal failure as well as sepsis plan is to treat the underlying clinical condition 12. DVT prophylaxis ? On enoxaparin Time spent in the patient's overall evaluation,decision-making process, review of diagnostic data, adjustment of management, discussion with other providers, nursing nursing and ancillary staff involved in patient's care documentation, 35 Medications at Discharge Home Medications albuterol sulfate 90 mcg/actuation aerosol inhaler 2 puff inhalation Q6H PRN COPD 02/02/19 atorvastatin 40 mg tablet 40 mg PO QHS cholesterol 11/07/23 hydroxyzine pamoate 100 mg capsule 100 mg PO BID Anxiety 11/07/23 omeprazole 40 mg capsule,delayed release 40 mg PO DAILY GERD 11/07/23 sertraline 50 mg tablet 75 mg PO DAILY Mood 11/07/23 ziprasidone HCl 80 mg capsule 80 mg PO QHS antipsychotic 11/07/23 carvedilol 6.25 mg tablet 6.25 mg PO BID blood pressure 30 days #60 tabs 11/10/23 ziprasidone HCl 40 mg capsule 40 mg PO DAILY antipsychotic 11/27/23 albuterol sulfate 2.5 mg/3 mL (0.083 %) solution for nebulization 2.5 mg inhalation Q6H PRN wheezing 01/10/24 fluticasone 100 mcg-salmeterol 50 mcg/dose blistr powdr for inhalation 1 ea inhalation BID allergies 01/10/24 furosemide 40 mg tablet 40 mg PO DAILY edema #60 tabs 05/26/24 guaifenesin 1,200 mg tablet, extended release 12 hr (Mucinex) 1,200 mg PO Q12H #20 tabs 05/26/24 levofloxacin 750 mg tablet 750 mg PO DAILY #3 tabs 05/26/24 losartan 50 mg tablet 50 mg PO QDAY blood pressure #60 tabs 05/26/24 potassium chloride 20 mEq tablet,extended release(part/cryst) 20 meq PO BIDCM #60 tabs 05/26/24 prednisone 20 mg tablet 20 mg PO BID #10 tabs 05/26/24 Physical Exam Narrative GENERAL: Cooperative HEENT: Atraumatic; normocephalic EYES; Anicteric, Normal Conjunctiva NECK; supple, normal thyroid, RESPIRATORY: Diminished to auscultation CARDIOVASCULAR: Regular S1 S2, GI: soft, normoactive bowel sounds, : No Renal angle tenderness; EXTREMITIES: No edema, no clubbing, MUSCULOSKELETAL: no muscle wasting NEURO: Awake; no lateralizing signs. SKIN: No Rash PSYCH; Flat affect Weight / BMI Weight Weight: 81.1 kg Body Mass Index (BMI) 30.7 ABG / Lab / Microbiology Data 05/26/24 05:45 05/26/24 05:45 Laboratory: Laboratory Results - last 24 hr 05/25/24 20:46: Vancomycin Trough 15.4 H 05/26/24 05:45: WBC 11.1 H, RBC 4.00 L, Hgb 12.1, Hct 36.1 L, MCV 90.3, MCH 30.3, MCHC 33.5, RDW Std Deviation 46.6 H, RDW Coeff of Joseph 14.0, Plt Count 223, MPV 10.6, Immature Gran % (Auto) 0.300, Neut % (Auto) 67.6, Lymph % (Auto) 24.7, [place] % (Auto) 7.3, Eos % (Auto) 0.0, Baso % (Auto) 0.1, Absolute Neuts (auto) 7.5, Absolute Lymphs (auto) 2.74, Nucleated RBC % 0, Sodium 138, Potassium 3.1 L, Chloride 103, Carbon Dioxide 31.0, Anion Gap 4 L, BUN 18, Creatinine 1.14 H, Estim Creat Clear Calc 58.12, Est GFR (MDRD) Af Amer 64, Est GFR (MDRD) Non-Af 53 L, BUN/Creatinine Ratio 15.8, Glucose 103, Calcium 8.2 L Microbiology: Microbiology 05/24/24 07:55 Blood Culture (Wb) - Anticubital Left Blood Culture - Preliminary No growth in 48 hours. 05/24/24 07:24 Blood Culture (Wb) - Anticubital Right Blood Culture - Preliminary No growth in 48 hours. 05/24/24 09:18 Mucosa - Nasopharyngeal Respiratory Panel (PCR) - Final 05/24/24 11:15 Urine, Clean Catch Legionella Antigen - Final 05/24/24 11:15 Urine, Clean Catch Streptococcus pneumoniae Antigen (M - Final 05/24/24 09:18 Nasal Secretion MRSA (PCR) - Final 05/24/24 06:39 Mucosa - Nose SARS-CoV-2, Influenza & RSV (PCR) - Final D/C Instructions Discharge Diet: 8 Cup Fluid Restriction Discharge Activity: Return to Normal Activity Call your doctor if you observe: Fever of 101 or Higher, Shortness of breath, Fainting spells and Chest pain DC O2, CPAP, BIPAP Needs PSN CPAP & BiPAP: BiPAP & CPAP Settings per PSN Mode BiPAP 05/25/24 02:55 Bipap Delivery Device Face Mask 05/25/24 02:55 BiPAP Inspiratory Pressure 14 05/25/24 02:55 BiPAP Expiratory Pressure 8 05/25/24 02:55 BiPAP Rate 12 05/25/24 02:55 Fraction of Inspired Oxygen ( 05/25/24 02:55 FIO2) Home O2 Discharge instructions: Yes Type of respiratory needs?: Oxygen Oxygen frequency: Continuous Continuous oxygen liters per minute: 2L DC home with Oxygen: Yes Home O2 MD Review: I have reviewed the oxygen testing, and the patient qualifies for home oxygen equipment and portability. The patient is mobile in the home and the community. Meaningful Use Info Meaningful Use Meaningful Use Diagnoses (Choose all that apply): CHF CHF QUAN/ARB ordered at discharge?: No Reason QUAN/ARB not ordered?: Not indicated Documented LVEF (%): 60 Ischemic Stroke Statin Dosing Therapy Reference: STATIN DOSE THERAPY REFERENCE: * Patients > 75 years receive moderate or high dose statin therapy. * Patients 75 years or YOUNGER should receive HIGH intensity statin dose unless contraindicated. You will be required to document reason for non-treatment if statin daily dose does not meet guidelines. HIGH DOSE STATIN THERAPY DAILY Atorvastatin > than or = to 40 mg Rosuvastatin > than or = to 20 mg Amlodipine + Atorvastatin > than or = to 2.5/40 mg Ezetimibe + Simvastatin 10/80 mg Simvastatin 80mg Discharge Plan Admission Admit Date/Time: 05/24/24 07:46 Attending Provider: Bruce Burnett Primary Care Provider: Susy Funez Consulting Providers: Wayne Estrella; Jacob Conde; Chon Bartholomew; Chang Snyder; Bruce Robles; Tim Staley; Rajiv Ward; Rossana Hassan; Rodrigue Leon; Linus Olivia; Wade Hendricks; Jasmin Doss; Charlette Sweeney; Johnathon Gonzales; Regino Young; Sanjay Santo; Lance Costello; Loreto Lugo; Avtar Quintanilla; Germán Anderson; Jorden Han; Milan Hendricks; Adry Weller NP; Lucille Foreman Discharge Orders/Prescriptions Prescriptions: New potassium chloride 20 mEq Tablet,Er Particles/Crystals 20 meq PO BIDCM Qty: 60 0RF levofloxacin 750 mg tablet 750 mg PO DAILY Qty: 3 0RF guaifenesin [Mucinex] 1,200 mg tablet extended release 12hr 1,200 mg PO Q12H Qty: 20 0RF prednisone 20 mg tablet 20 mg PO BID Qty: 10 0RF Continued albuterol sulfate 1 INHALER inhaler 2 puff inhalation Q6H PRN (Reason: COPD) ziprasidone HCl 40 mg capsule 40 mg PO DAILY atorvastatin 40 mg tablet 40 mg PO QHS omeprazole 40 mg capsule,delayed release(DR/EC) 40 mg PO DAILY hydroxyzine pamoate 100 mg capsule 100 mg PO BID ziprasidone HCl 80 mg capsule 80 mg PO QHS sertraline 50 mg tablet 75 mg PO DAILY carvedilol 6.25 mg Tablet 6.25 mg PO BID 30 Days Qty: 60 2RF albuterol sulfate 2.5 mg /3 mL (0.083 %) solution for nebulization 2.5 mg inhalation Q6H PRN (Reason: wheezing) fluticasone propion-salmeterol 100-50 mcg/dose blister with device 1 ea INHALATION BID Changed losartan 50 mg tablet 50 mg PO QDAY Qty: 60 0RF Patient Comments: dose increased recently furosemide 40 mg tablet 40 mg PO DAILY Qty: 60 3RF Referrals / Follow Up: Susy Funez MD [Primary Care Provider] - Within 1 Week Disposition Disposition (needs filled in before D/C Order can be placed): Home, Self Care Charges/Coding Visit Charges Inpatient E&M: 77686 Disch Hosp >30min
[2024-05-26] MEDS: Potassium Chloride Oral Tablet 20 MEQ PO (11:00)
[2024-05-26] MEDS: Potassium Chloride Oral Tablet 20 MEQ 40 MEQ PO (11:01)
[2024-05-26 11:40] VITALS: O2SAT 93; O2SAT 97
== END 2024-05-26 12:48 | disposition home or self-care (01) | DRG 871 ==
LOC: ED 08:08 → ICU 08:17 → PCU 05-25 11:50
PROVIDERS: Admitting Provider Internal Medicine; Emergency Provider Emergency Medicine; PCP Internal Medicine; Visit Provider Internal Medicine
DX: A41.50 Gram-negative sepsis, unspecified (principal); J96.01 Acute respiratory failure with hypoxia; I50.33 Acute on chronic diastolic (congestive) heart failure; J15.69 Pneumonia due to other Gram-negative bacteria; E87.20 Acidosis, unspecified; I13.0 Hypertensive heart and chronic kidney disease with heart failure and stage 1 through stage 4 chronic kidney disease, or unspecified chronic kidney disease; J44.0 Chronic obstructive pulmonary disease with (acute) lower respiratory infection; J44.1 Chronic obstructive pulmonary disease with (acute) exacerbation; I47.10 Supraventricular tachycardia, unspecified; F31.9 Bipolar disorder, unspecified; N18.30 Chronic kidney disease, stage 3 unspecified; E66.9 Obesity, unspecified; E78.5 Hyperlipidemia, unspecified; I25.2 Old myocardial infarction; F41.8 Other specified anxiety disorders; K21.9 Gastro-esophageal reflux disease without esophagitis; G47.30 Sleep apnea, unspecified; Z88.0 Allergy status to penicillin; Z88.1 Allergy status to other antibiotic agents; Z87.891 Personal history of nicotine dependence; Z86.73 Personal history of transient ischemic attack (TIA), and cerebral infarction without residual deficits; Z79.899 Other long term (current) drug therapy; Z91.199 Patient's noncompliance with other medical treatment and regimen due to unspecified reason; Z68.30 Body mass index [BMI] 30.0-30.9, adult
CPT/HCPCS: 36415; 36600; 71045; 80048; 80202; 82803; 83605; 83735; 83880; 84100; 84145; 85025; 87040; 87449; 87631; 87633; 87641; 93005; 94002; 94003; 94640; 99252; 99285; 99406; A4216; G0463; J1940; J2405

== ENCOUNTER 2024-06-22 11:47 | Inpatient (IN) | payer MEDICARE, MEDICAID, SELFPAY ==
[2024-06-22] VITALS (21 sets, daily range): BP systolic 128–213; BP diastolic 58–150; PULSE 84–148; RESP 11–34; TEMP 36.1–36.7; O2SAT 92–99; BMI 29.3; BMI 30.1
--- NOTE | 2024-06-22 11:57 | EKG12_ITS ---
Test Reason : SOB Blood Pressure : */* mmHG Vent. Rate : 118 BPM Atrial Rate : 118 BPM P-R Int : 168 ms QRS Dur : 86 ms QT Int : 324 ms P-R-T Axes : 72 64 63 degrees QTcB Int : 454 ms Sinus tachycardia Possible Left atrial enlargement Junctional ST depression, probably normal Borderline ECG Confirmed by LARRY FRANCO, YVROSE ([id number]), video effects editor TANYA RASHID (1989) on 06/24/2024 8:18:52 AM Referred By: Inocente Caldwell Confirmed By: YVROSE JUAREZ MD
[2024-06-22] MEDS: Ipratropium/Albuterol Sulfate 3 ML AMPUL.NEB INHALATION ×4 (12:14→19:52)
[2024-06-22] MEDS: predniSONE 20 MG Tablet 60 MG PO (12:27)
[2024-06-22] MEDS: 0.9% Normal Saline (1000mL) 1,000 ML 999 ML IV ×4 (12:27→17:14)
[2024-06-22 12:29] LABS: Absolute Lymphocyte Count 1.53 X10^3/uL (0.83-4.51); Absolute Neutrophil Count 5.9 X10^3/uL (2.0-7.7); Basophil# 0.03 X10^3/uL; Basophil% 0.4 % (0-1); Hematocrit 46.6 % (37-47); Hemoglobin 15.7 g/dL (12.0-15.0); Lymphocyte # 1.53 X10^3/ul (0.83-4.51); Lymphocyte % 18.6 % (19-41); Mean Corp Hgb Conc 33.7 g/dL (32-36); Mean Corpuscular Volume 88.9 fL (81-99); Mean Platelet Vol. 10.1 fl (6.2-12.0); Monocyte# 0.75 X10^3/uL; Monocyte% 9.1 % (0-10); NRBC Flagged by Analyzer 0 % (0-5); Neutrophil # 5.87 X10^3/uL (2.7-7.7); Neutrophil % 71.3 % (47-70); Platelet Count 320 K/mm3 (150-450); RBC Distribution Width CV 13.4 % (11.6-14.6); RBC Distribution Width SD 43.6 fl (35.1-43.9); Red Blood Count 5.24 M/mm3 (4.2-5.4); White Blood Count 8.2 K/mm3 (4.4-11.0)
--- NOTE | 2024-06-22 12:30 | RAD_ITS ---
PROCEDURE: CHEST PA AND LATERAL REASON FOR EXAM: Short of breath TECHNIQUE: Single frontal image including the chest and abdomen. COMPARISON: None. FINDINGS: The cardiothymic contour is normal. The lungs are clear. Bowel gas pattern is normal. No evidence of bowel obstruction or free air. The bones are unremarkable. No radiopaque foreign body is identified. RAD/Chest PA and Lateral IMPRESSION: UNREMARKABLE SINGLE VIEW OF THE CHEST AND ABDOMEN. Reading Location: [facility]
[2024-06-22 12:34] LABS: International Normalized Ratio 0.9; Partial Thromboplast Time 25.9 Seconds (24.1-36.2); Prothrombin Time (Protime)PT. 12.7 SECONDS (11.7-14.9)
--- NOTE | 2024-06-22 12:50 | EDS_ITS ---
HPI History of Present Illness Chief Complaint: Shortness of Breath Narrative Narrative: Patient is a 53-year-old female with past medical history of anxiety, depression, bipolar disorder, GERD, RASHAD, COPD chronically on 2 L nasal cannula, hypertension, seizures who presents to the emergency department with a chief complaint of shortness of breath and generalized not feeling well. According to the patient she was recently exposed to her boyfriend who tested positive for influenza A. States that she has had diffuse bodyaches, fevers and chills and not been feeling well. States that she has had increased shortness of breath especially when she tries to get up and walk around she states that she has increased her oxygen requirement to 3 L. States that her oxygen the lowest was around 86% on her nasal cannula and states that she could not get this above 92% at home. States that she has not been on steroids recently [facility] Medical History Shock Elevated troponin Transaminitis Non-ST elevation [place] (NSTEMI) Pneumonia Takotsubo cardiomyopathy Bipolar disorder Anxiety Depression Osteoarthritis Kidney stones Hx of gastroesophageal reflux (GERD) Smoker BiPAP (biphasic positive airway pressure) dependence Asthma Myocardial infarct Chest pain Stroke/cerebrovascular accident Migraines Seizures Ulcerative colitis Hypertension COPD (chronic obstructive pulmonary disease) Home Medications ?Medication ?Instructions ?Recorded ?Last Taken ?Type albuterol sulfate 90 mcg/actuation 2 puff inhalation Q 6H PRN COPD 02/02/19 01/09/24 History aerosol inhaler atorvastatin 40 mg tablet 40 mg PO QHS cholesterol 05/23/24 History hydroxyzine pamoate 100 mg capsule 100 mg PO BID Anxie ty 11/07/23 05/23/24 History omeprazole 40 mg capsule,delayed 40 mg PO DAILY GERD 0 11/07/23 05/23/24 History release sertraline 50 mg tablet 75 mg PO DAILY Mood 11/07/23 05/23/24 History ziprasidone HCl 80 mg capsule 80 mg PO QHS antipsychot ic 11/07/23 05/23/24 History carvedilol 6.25 mg tablet 6.25 mg PO BID blood pressur e 30 11/10/23 05/23/24 Rx days #60 tabs ziprasidone HCl 40 mg capsule 40 mg PO DAILY antipsych otic 11/27/23 05/23/24 History albuterol sulfate 2.5 mg/3 mL 2.5 mg inhalation Q6H NV N wheezing 01/10/24 01/09/24 History (0.083 %) solution for nebulization fluticasone 100 mcg-salmeterol 50 1 ea inhalation BID allergies 01/10/24 05/23/24 History mcg/dose blistr powdr for inhalation furosemide 40 mg tablet 40 mg PO DAILY edema #60 tab s 05/26/24 Unknown Rx guaifenesin 1,200 mg tablet, 1,200 mg PO Q12H #20 tabs 05/26/24 Unknown Rx extended release 12 hr (Mucinex) levofloxacin 750 mg tablet 750 mg PO DAILY #3 tabs 10/13 Unknown Rx losartan 50 mg tablet 50 mg PO QDAY blood pressure #60 05/26/24 Unknown Rx tabs potassium chloride 20 mEq 20 meq PO BIDCM #60 tabs 10/13 Unknown Rx tablet,extended release(part/cryst) prednisone 20 mg tablet 20 mg PO BID #10 tabs Unknown Rx Allergy/AdvReac Type Severity Reaction Status Date / Time meperidine (From Demerol) Allergy Other Verified 06/22/24 12:10 metronidazole (From Flagyl) Allergy Hives Verified 06/22/24 11:48 oxycodone (From Percocet) Allergy Hives Verified 06/22/24 12:10 Penicillins Allergy Hives Verified 06/22/24 12:10 aspirin AdvReac Vomiting Verified 06/22/24 12:10 Family History Mother Myocardial infarction Brother Myocardial infarction Surgical History History of left heart catheterization (~10/2023) Hx of hysterectomy History of appendectomy Social History Smoking Status: Former smoker how long ago did patient quit smoking: Quit 2 weeks ago per patient report on 01/12/2024 alcohol intake: never substance use type: does not use caffeine: Yes (occasionally) ROS ROS ED ROS Narrative Constitutional: Complains of diffuse bodyaches, fever and chills noted above Eyes: Denies change in vision double vision blurry vision Cardiovascular: Denies chest pain or palpitations Respiratory: Complains of cough and shortness of breath as noted above Abdomen: Admits to nausea vomiting diarrhea denies abdominal pain : Denies any urinary symptoms Neurological: Denies numbness, weakness, tingling Musculoskeletal: Denies back pain Skin: Denies any rashes or lesions EXAM Physical Exam Narrative Exam Narrative: General: Patient was lying in bed rest comfortably did not appear to be in acute distress Head: Atraumatic, normocephalic Eyes: PERRL bilaterally, EOMI bilaterally, no conjunctival injection noted Neck: Soft, supple, trachea midline Cardiovascular: Regular rate and rhythm no murmurs gallops rubs noted Respiratory: Patient has diffuse end expiratory wheezing noted bilaterally Abdomen: Soft, nondistended, no tenderness to palpation Extremities: +4/5 strength noted in the bilateral upper and lower extremities, radial pulses +2/4 in the bilateral extremities, no pedal edema no exam Neurological: Patient following commands knew that she was at [facility] year is 2024 Skin: Warm, dry, intact no rashes or lesions noted Const Vital Signs: 06/22/24 11:48 06/22/24 11:50 06/22/24 12:04 Temperature 97.8 F 97.8 F Temperature Source Temporal Oral Pulse Rate 135 H 123 H Respiratory Rate 26 H 18 Respiratory Effort Respiratory Depth Respiratory Pattern Blood Pressure 213/150 H 180/124 H Blood Pressure Mean 171 142 Pulse Ox 97 98 95 Oxygen Delivery Method Room Air Nasal Cannula Nasal Cannula Oxygen Flow Rate (L/min) 2 2 06/22/24 12:09 06/22/24 12:15 06/22/24 12:45 Temperature 97.9 F Temperature Source Oral Pulse Rate 109 H 105 H Respiratory Rate 20 H 12 Respiratory Effort Short of Breath Respiratory Depth Shallow Respiratory Pattern Tachypnea Blood Pressure 169/96 H Blood Pressure Mean 116 Pulse Ox 99 Oxygen Delivery Method Nasal Cannula Oxygen Flow Rate (L/min) 2 06/22/24 13:00 06/22/24 14:00 06/22/24 14:49 Temperature 97.7 F L 97.7 F L Temperature Source Oral Oral Pulse Rate 102 H 148 H 86 Respiratory Rate 16 16 20 H Respiratory Effort Respiratory Depth Respiratory Pattern Blood Pressure 157/76 H 152/74 H 148/72 H Blood Pressure Mean 101 100 97 Pulse Ox 99 98 96 Oxygen Delivery Method Nasal Cannula Nasal Cannula Oxygen Flow Rate (L/min) 2 2 06/22/24 15:00 Temperature 97.7 F L Temperature Source Oral Pulse Rate 101 H Respiratory Rate 20 H Respiratory Effort Respiratory Depth Respiratory Pattern Blood Pressure 129/82 H Blood Pressure Mean 97 Pulse Ox 96 Oxygen Delivery Method Nasal Cannula Oxygen Flow Rate (L/min) 2 MDM MDM MDM Narrative Medical decision making narrative: Patient is a 53-year-old female who presented to the emerged part with a chief complaint of shortness of breath, generalized bodyaches, nausea vomiting diarrhea and a recent exposure to influenza A. On the differential diagnose includes but not limited to pneumonia, ACS, upper respiratory infection secondary to viral etiology, COPD exacerbation. Once workup is obtained reviewed she will be reevaluated. Patient be given 30 cc/kg bolus of IV fluids, 3 DuoNebs and 60 mg of prednisone she will be reevaluated. Patient CBC was reviewed showed no evidence leukocytosis white blood count was normal 8.2, hemoglobin 15.7, plate count normal at 320. Patient INR is 0.9, PT of 12.7. Patient sodium was normal at 134, potassium normal at 4.4, creatinine was elevated 2.1 to her baseline appears to be around 1.14. Patient's lactic acid was elevated at 5. Patient's AST and ALT were 32 and 17 respectively. Patient's troponin was noted to be 360 with a delta troponin obtained at 356. Patient's original EKG reviewed and independently interpreted myself showed sinus tachycardia with a rate of [address] changes noted. Patient's urinalysis reviewed and showed negative nitrates negative leukocyte esterase 5-10 white cells with 1+ bacteria however does appear to be a contaminated sample with 10-25 squamous epithelial cells she does not have any urinary symptoms therefore we will hold off antibiotics and send for urine culture. Patient's chest x-ray reviewed by myself by radiology and showed no acute cardiopulmonary processes. On reevaluation of the patient she still had wheezing noted and appeared to be tight with air movement therefore added on another albuterol treatment. Patient was noted be tachycardic to the 130s 140s therefore I repeated an EKG. This EKG was then independently reviewed by myself and showed atrial fibrillation with rapid ventricular response with a rate of 132 bpm. Given originally that she was improving and became tachycardic again I did add on a CT angiography of chest to ensure that she does not have a pulmonary embolism. I did give the patient 5 mg of Lopressor. Patient did test positive for influenza A. After 5 mg of Lopressor was given patient was reevaluated and. That the patient was in sinus rhythm therefore I repeated a 30 EKG and this was independently reviewed by myself which showed sinus rhythm with a rate of 88 bpm. Patient's 30 cc/kg bolus of IV fluids were completed at 1538 reperfusion assessment was performed and patient remains normotensive and is not hypotensive therefore no need for vasopressors and patient does have a viral illness therefore no indication for antibiotics at this point time. Lactic acid pending. Patient will require admission to the hospital for her acute on chronic hypoxic respiratory failure in the setting of COPD exacerbation secondary to influenza A with lactic acidosis and type II myocardial infarction. Discussed case with hospitalist Dr. Jara who accept patient for admission. Patient was notified is agreeable to plan all question concerns answered at bedside. Critical care time 37 minutes. Lab Data Labs: Laboratory Results - last 24 hr 06/22/24 06/22/24 06/22/24 12:12 14:12 14:20 WBC 8.2 RBC 5.24 Hgb 15.7 H Hct 46.6 MCV 88.9 MCH 30.0 MCHC 33.7 RDW Std Deviation 43.6 RDW Coeff of Joseph 13.4 Plt Count 320 MPV 10.1 Immature Gran % (Auto) 0.600 Neut % (Auto) 71.3 H Lymph % (Auto) 18.6 L [place] % (Auto) 9.1 Eos % (Auto) 0.0 Baso % (Auto) 0.4 Absolute Neuts (auto) 5.9 Absolute Lymphs (auto) 1.53 Nucleated RBC % 0 PT 12.7 INR 0.9 APTT 25.9 Sodium 134 L Potassium 4.4 Chloride 101 Carbon Dioxide 19.0 L Anion Gap 14 BUN 24 H Creatinine 2.12 H Estim Creat Clear Calc 30.64 Est GFR (MDRD) Af Amer 31 L Est GFR (MDRD) Non-Af 26 L BUN/Creatinine Ratio 11.3 Glucose 208 H Lactic Acid 5.0 H* Calcium 8.9 Total Bilirubin 0.40 AST 32 ALT 17 Alkaline Phosphatase 117 Troponin I High Sens 360 H* 356 H* Total Protein 8.0 Albumin 3.2 Globulin 4.8 H Albumin/Globulin Ratio 0.7 L Urine Color Yellow Urine Clarity Sl. Cloudy Urine pH 6.0 Ur Specific [place] 1.020 Urine Protein 30 H Urine Glucose (UA) Normal Urine Ketones 15 H Urine Occult Blood 150 H Urine Nitrite Negative Urine Bilirubin Negative Urine Urobilinogen Normal Ur Leukocyte Esterase Negative Urine RBC 0-5 SEEN Urine WBC 5-10 SEEN Ur Squamous Epith Cells 10-25 SEEN Urine Bacteria 1+ WBC Casts 5-10 SEEN Urine Mucus 0 SEEN Urine Yeast 1+ Radiography Diagnostic Testing: Clinical Impression(s) from Imaging Studies Chest X-Ray 06/22/24 12:30 IMPRESSION: UNREMARKABLE SINGLE VIEW OF THE CHEST AND ABDOMEN. Reading Location: [facility] Chest CTA 06/22/24 13:58 IMPRESSION: No acute thromboembolic disease. Scattered intrapulmonary cysts. Mild peribronchial thickening noted throughout bilateral lung uribe. One or more dose reduction techniques were used (e.g., Automated exposure control, adjustment of the mA and/or kV according to patient size, use of iterative reconstruction technique). Reading Location: [facility] Discharge Plan Triage Chief Complaint: Shortness of Breath ED Provider: Inocente Caldwell Dx/Rx/DC Orders Clinical Impression: Acidosis, lactic, Type 2 myocardial infarction, Influenza A, COPD exacerbation, Atrial fibrillation with RVR Prescriptions: No Action albuterol sulfate 1 INHALER inhaler 2 puff inhalation Q6H PRN (Reason: COPD) ziprasidone HCl 40 mg capsule 40 mg PO DAILY atorvastatin 40 mg tablet 40 mg PO QHS omeprazole 40 mg capsule,delayed release(DR/EC) 40 mg PO DAILY hydroxyzine pamoate 100 mg capsule 100 mg PO BID ziprasidone HCl 80 mg capsule 80 mg PO QHS sertraline 50 mg tablet 75 mg PO DAILY carvedilol 6.25 mg Tablet 6.25 mg PO BID 30 Days Qty: 60 2RF albuterol sulfate 2.5 mg /3 mL (0.083 %) solution for nebulization 2.5 mg inhalation Q6H PRN (Reason: wheezing) fluticasone propion-salmeterol 100-50 mcg/dose blister with device 1 ea INHALATION BID potassium chloride 20 mEq Tablet,Er Particles/Crystals 20 meq PO BIDCM Qty: 60 0RF levofloxacin 750 mg tablet 750 mg PO DAILY Qty: 3 0RF guaifenesin [Mucinex] 1,200 mg tablet extended release 12hr 1,200 mg PO Q12H Qty: 20 0RF prednisone 20 mg tablet 20 mg PO BID Qty: 10 0RF losartan 50 mg tablet 50 mg PO QDAY Qty: 60 0RF Patient Comments: dose increased recently furosemide 40 mg tablet 40 mg PO DAILY Qty: 60 3RF Primary Care Provider: Susy Funez Referrals: Susy Funez MD [Primary Care Provider] - Print Language: Kittitian Disposition Disposition: Acute Care Hospital [facility]
[2024-06-22 12:53] LABS: ALB/GLOB Ratio 0.7 RATIO (0.9-2.4); AST(SGOT) 32 U/L (15-37); Alanine Aminotransfer ALT/SGPT 17 U/L (13-56); Albumin, Serum 3.2 g/dL (3.2-5.0); Alkaline Phosphatase 117 U/L (45-117); Anion Gap 14 (5-15); BUN 24 mg/dL (7-18); BUN/Creat Ratio 11.3 RATIO (10-20); Calcium,Total 8.9 mg/dL (8.5-10.1); Chloride 101 mmol/L (98-107); Creatinine, Serum 2.12 mg/dL (0.55-1.02); EST Glomerular Filtration Rate 26 mL/min (>60); Est Glom Filt Rate - Afr Amer 31 mL/min (>60); Estimated Creatinine Clearance 30.64 ml/min; Globulin 4.8 g/dL (2.2-4.2); Glucose 208 mg/dL (74-106); Potassium 4.4 mmol/L (3.5-5.1); Sodium Level 134 mmol/L (136-145); Troponin-I HS 360 pg/mL (3.0-54.0)
--- NOTE | 2024-06-22 13:51 | EKG12_ITS ---
Test Reason : REPEAT Blood Pressure : */* mmHG Vent. Rate : 132 BPM Atrial Rate : * BPM P-R Int : * ms QRS Dur : 86 ms QT Int : 328 ms P-R-T Axes : * 42 42 degrees QTcB Int : 485 ms Atrial fibrillation with rapid ventricular response Nonspecific ST abnormality Abnormal ECG Confirmed by LARRY FRANCO, YVROSE ([id number]), scientific editor TANYA RASHID ([id number]) on 06/24/2024 8:19:08 AM Referred By: Inocente Caldwell Confirmed By: YVROSE JUAREZ MD
--- NOTE | 2024-06-22 13:58 | CT_ITS ---
PROCEDURE: CTA CHEST W/WO CONTRAST REASON FOR EXAM: Short of breath. TECHNIQUE: CTA imaging of the chest with intravenous contrast. 3D reconstructions. CONTRAST: COMPARISON: None. FINDINGS: Hardware: None. Lymph nodes: No mediastinal hilar or axillary lymphadenopathy. Heart: Normal heart size. No pericardial effusion. RV/LV Diameter Ratio: N/A Thoracic Aorta: No thoracic aortic aneurysm or dissection. Pulmonary Vessels: No evidence of acute pulmonary emboli through the major subsegmental branches. Most Proximal Level of Embolus (if embolus present): N/A Lungs and Airways: The lungs are normally expanded and clear. Scattered intrapulmonary cysts. Mild peribronchial thickening noted throughout bilateral lung uribe. Pleura: No pleural effusion. No pneumothorax. Upper Abdomen: Visualized portions of the upper abdominal viscera are unremarkable. Bones: Bone windows are unremarkable. CT/CTA Chest W/WO Contrast IMPRESSION: No acute thromboembolic disease. Scattered intrapulmonary cysts. Mild peribronchial thickening noted throughout bilateral lung uribe. One or more dose reduction techniques were used (e.g., Automated exposure contr ol, adjustment of the mA and/or kV according to patient size, use of iterative reconstruction technique). Reading Location: [facility]
[2024-06-22] MEDS: Oseltamivir Phosphate 75 MG Capsule PO (14:03)
[2024-06-22] MEDS: Metoclopramide 10 MG/2 ML Vial IV (14:03)
[2024-06-22] MEDS: Metoprolol Tartrate 5 MG/5 ML Vial IV ×2 (14:18→18:59)
[2024-06-22 14:27] LABS: Color, Urine Yellow (Yellow); Glucose, Dipstick Normal (Normal); Ketone-Dipstick 15 mg/dl (Negative); Leukocyte Esterase-Dipstick Negative /ul (Negative); Nitrite-Dipstick Negative (Negative); Occult Blood-Urine 150 /ul (Negative); Protein-Dipstick 30 mg/dl (Negative); Urine Bilirubin Dipstick Negative (Negative); Urine Clarity Sl. Cloudy (Clear); Urine Urobilinogen Normal (Normal)
[2024-06-22 14:28] LABS: Mucous, Urine 0 SEEN /hpf (<or=2+)
--- NOTE | 2024-06-22 14:39 | EKG12_ITS ---
Test Reason : REPEAT X2 Blood Pressure : */* mmHG Vent. Rate : 88 BPM Atrial Rate : 88 BPM P-R Int : 150 ms QRS Dur : 84 ms QT Int : 422 ms P-R-T Axes : 57 33 41 degrees QTcB Int : 510 ms Normal sinus rhythm Prolonged QT Abnormal ECG Confirmed by LARRY FRANOC, YVROSE ([id number]), editor house organ TANYA RASHID ([id number]) on 06/24/2024 8:19:22 AM Referred By: Inocente Caldwell Confirmed By: YVROSE JUAREZ MD
[2024-06-22 14:56] LABS: Red Blood Cells-Urine 0-5 SEEN /hpf (0-5); White Blood Cells 5-10 SEEN /hpf (0-5); Yeast-Urine 1+ /hpf (None Seen)
[2024-06-22 14:57] LABS: Bacteria 1+ /hpf (None Seen)
[2024-06-22 14:58] LABS: Squamous Epithelial Cells - UA 10-25 SEEN /hpf (5-10)
[2024-06-22 14:59] LABS: White Cell Cast 5-10 SEEN /lpf (None Seen)
[2024-06-22 15:33] LABS: Troponin-I HS 356 pg/mL (3.0-54.0)
--- NOTE | 2024-06-22 15:43 | PCM.HP.STD ---
HPI - General General Date of Admission: 06/22/24 Date of Service: 06/22/24 Chief Complaint: Shortness of breath and fatigue HPI Narrative RAYMON HAAS, is a 53 F who presented to [facility] ED on 06/22/2024 with shortness of breath and fatigue. Found to be positive for influenza A. Patient states her boyfriend recently tested positive for influenza A. She has now had diffuse bodyaches with fevers and chills and URI symptoms for the past 2 to 3 days. Today she became more short of breath especially with exertion. She typically wears 2 L nasal cannula at baseline but even on 3 L nasal cannula she was becoming hypoxic with exertion, so she came in for further evaluation. On arrival to the ED she was hypertensive and tachycardic to the 110s with some increased work of breathing. She had improvement in blood pressure and tachycardia initially with multiple breathing treatments and IV fluids. However, she then had a run of A-fib with RVR with heart rate in the 140s to 150s. Was given a dose of IV Lopressor with conversion back to normal sinus rhythm. Initial lactate was 5.0. CTA chest showed no PE, did show mild peribronchial thickening noted through bilateral lung uribe. Given these findings, hospitalist contacted for admission. I saw the patient at bedside in the ED. Patient was fatigued appearing but otherwise laying back comfortably in bed, conversing normally and in no acute distress. She is breathing comfortably on 3 L nasal cannula at rest. Had mild upper airway wheezing noted bilaterally but otherwise good air movement throughout. She reported feeling moderately improved from earlier today especially with IV fluids. States she has not been eating or drinking much. Denies any history of A-fib that she is aware of. No other acute concerns at this time. [facility] Medical History Shock Elevated troponin Transaminitis Non-ST elevation MO (NSTEMI) Pneumonia Takotsubo cardiomyopathy Bipolar disorder Anxiety Depression Osteoarthritis Kidney stones Hx of gastroesophageal reflux (GERD) Smoker BiPAP (biphasic positive airway pressure) dependence Asthma Myocardial infarct Chest pain Stroke/cerebrovascular accident Migraines Seizures Ulcerative colitis Hypertension COPD (chronic obstructive pulmonary disease) Home Medications ?Medication ?Instructions ?Recorded ?Last Taken ?Type albuterol sulfate 90 mcg/actuation 2 puff inhalation Q6H PRN COPD 02/02/19 01/09/24 History aerosol inhaler atorvastatin 40 mg tablet 40 mg PO QHS cholesterol 11/07/23 06/21/24 History hydroxyzine pamoate 100 mg capsule 100 mg PO BID Anxiety 11/07/23 06/21/24 History omeprazole 40 mg capsule,delayed 40 mg PO DAILY GERD 11/07/23 06/21/24 History release sertraline 50 mg tablet 75 mg PO DAILY Mood 11/07/23 06/21/24 History ziprasidone HCl 80 mg capsule 80 mg PO QHS antipsychotic 11/07/23 06/21/24 History carvedilol 6.25 mg tablet 6.25 mg PO BID blood pressure 30 11/10/23 06/21/24 Rx days #60 tabs albuterol sulfate 2.5 mg/3 mL 2.5 mg inhalation Q6H PRN wheezing 01/10/24 01/09/24 History (0.083 %) solution for nebulization fluticasone 100 mcg-salmeterol 50 1 ea inhalation BID allergies 01/10/24 06/21/24 History mcg/dose blistr powdr for inhalation furosemide 40 mg tablet 40 mg PO DAILY edema #60 tabs 05/26/24 06/21/24 Rx potassium chloride 20 mEq 20 meq PO BIDCM #60 tabs 05/26/24 06/21/24 Rx tablet,extended release(part/cryst) losartan 100 mg tablet 100 mg PO DAILY bp 06/22/24 06/22/24 History ziprasidone HCl 60 mg capsule 60 mg PO DAILY bipolar 06/22/24 06/21/24 History Allergy/AdvReac Type Severity Reaction Status Date / Time meperidine (From Demerol) Allergy Other Verified 06/22/24 12:10 metronidazole (From Flagyl) Allergy Hives Verified 06/22/24 11:48 oxycodone (From Percocet) Allergy Hives Verified 06/22/24 12:10 Penicillins Allergy Hives Verified 06/22/24 12:10 aspirin AdvReac Vomiting Verified 06/22/24 12:10 Family History (Updated 06/22/24 @ 18:15 by Louise Viramontes) Mother Myocardial infarction Cancer Brother Myocardial infarction Surgical History History of left heart catheterization (~10/2023) Hx of hysterectomy History of appendectomy Social History Smoking Status: Former smoker how long ago did patient quit smoking: Quit 2 weeks ago per patient report on 01/12/2024 alcohol intake: never substance use type: does not use caffeine: Yes (occasionally) ROS Constitutional Constitutional: Reports fatigue and malaise; Denies chills, fever(s) or weakness Eyes Eyes: Denies change in vision Cardiovascular Cardiovascular: Denies chest pain, edema or lightheadedness Respiratory/Chest Respiratory/Chest: Reports cough, shortness of breath at rest, shortness of breath with exertion and wheezing; Denies productive cough Gastrointestinal Gastrointestinal: Reports nausea; Denies abdominal pain, constipation, diarrhea or vomiting Genitourinary Genitourinary: Denies dysuria Musculoskeletal Musculoskeletal: Reports myalgias; Denies arthralgias Neurologic Neurologic: Denies dizziness or headache(s) Vital Signs Vital Signs Vital Signs: 06/22/24 11:48 06/22/24 11:50 06/22/24 12:04 Temperature 97.8 F 97.8 F Temperature Source Temporal Oral Pulse Rate 135 H 123 H Respiratory Rate 26 H 18 Respiratory Effort Respiratory Depth Respiratory Pattern Blood Pressure 213/150 H 180/124 H Blood Pressure Mean 171 142 Pulse Ox 97 98 95 Oxygen Delivery Method Room Air Nasal Cannula Nasal Cannula Oxygen Flow Rate (L/min) 2 2 06/22/24 12:09 06/22/24 12:15 06/22/24 12:45 Temperature 97.9 F Temperature Source Oral Pulse Rate 109 H 105 H Respiratory Rate 20 H 12 Respiratory Effort Short of Breath Respiratory Depth Shallow Respiratory Pattern Tachypnea Blood Pressure 169/96 H Blood Pressure Mean 116 Pulse Ox 99 Oxygen Delivery Method Nasal Cannula Oxygen Flow Rate (L/min) 2 06/22/24 13:00 06/22/24 14:00 06/22/24 14:49 Temperature 97.7 F L 97.7 F L Temperature Source Oral Oral Pulse Rate 102 H 148 H 86 Respiratory Rate 16 16 20 H Respiratory Effort Respiratory Depth Respiratory Pattern Blood Pressure 157/76 H 152/74 H 148/72 H Blood Pressure Mean 101 100 97 Pulse Ox 99 98 96 Oxygen Delivery Method Nasal Cannula Nasal Cannula Oxygen Flow Rate (L/min) 2 2 06/22/24 15:00 Temperature 97.7 F L Temperature Source Oral Pulse Rate 101 H Respiratory Rate 20 H Respiratory Effort Respiratory Depth Respiratory Pattern Blood Pressure 129/82 H Blood Pressure Mean 97 Pulse Ox 96 Oxygen Delivery Method Nasal Cannula Oxygen Flow Rate (L/min) 2 Weight Weight: 77.9 kg Body Mass Index (BMI) 29.3 Physical Exam Const alert, oriented x3 and no apparent distress Constitutional Narrative: Middle-age female, class I obesity, fatigued appearing but otherwise laying back comfortably in bed, conversing normally, in no acute distress. General Appearance: cooperative and comfortable HEENT normocephalic, head/scalp atraumatic, hearing grossly normal bilaterally, nasal mucous membranes and turbinates normal and moist oral mucous membranes Eyes PERRL, EOMs intact bilaterally and conjunctivae normal Neck full ROM Chest inspection of chest normal Resp normal respiratory effort and no use of accessory muscles Resp Narrative: Breathing comfortably on 3 L nasal cannula at rest. Mild wheezing noted in upper airways but otherwise good air movement throughout with no crackles noted. Cardio no murmurs and peripheral pulses 2+ throughout Cardio Narrative: Tachycardic, regular rhythm. GI normal to inspection, nondistended, normoactive bowel sounds, soft to palpation, non-tender and non-distended Back/Spine normal ROM Extremity normal to inspection, full ROM and no pedal edema Skin no rashes or lesions noted Neuro moves all extremities and no focal motor deficits Speech: speech normal Psych mental status grossly normal Results Lab / Micro Data 06/22/24 12:12 06/22/24 12:12 Labs: Laboratory Results - last 24 hr 06/22/24 12:12: WBC 8.2, RBC 5.24, Hgb 15.7 H, Hct 46.6, MCV 88.9, MCH 30.0, MCHC 33.7, RDW Std Deviation 43.6, RDW Coeff of Joseph 13.4, Plt Count 320, MPV 10.1, Immature Gran % (Auto) 0.600, Neut % (Auto) 71.3 H, Lymph % (Auto) 18.6 L, Lee % (Auto) 9.1, Eos % (Auto) 0.0, Baso % (Auto) 0.4, Absolute Neuts (auto) 5.9, Absolute Lymphs (auto) 1.53, Nucleated RBC % 0, PT 12.7, INR 0.9, APTT 25.9, Sodium 134 L, Potassium 4.4, Chloride 101, Carbon Dioxide 19.0 L, Anion Gap 14, BUN 24 H, Creatinine 2.12 H, Estim Creat Clear Calc 30.64, Est GFR (MDRD) Af Amer 31 L, Est GFR (MDRD) Non-Af 26 L, BUN/Creatinine Ratio 11.3, Glucose 208 H, Lactic Acid 5.0 H*, Calcium 8.9, Total Bilirubin 0.40, AST 32, ALT 17, Alkaline Phosphatase 117, Troponin I High Sens 360 H*, Total Protein 8.0, Albumin 3.2, Globulin 4.8 H, Albumin/Globulin Ratio 0.7 L 06/22/24 14:12: Troponin I High Sens 356 H* 06/22/24 14:20: Urine Color Yellow, Urine Clarity Sl. Cloudy, Urine pH 6.0, Ur Specific [place] 1.020, Urine Protein 30 H, Urine Glucose (UA) Normal, Urine Ketones 15 H, Urine Occult Blood 150 H, Urine Nitrite Negative, Urine Bilirubin Negative, Urine Urobilinogen Normal, Ur Leukocyte Esterase Negative, Urine RBC 0-5 SEEN, Urine WBC 5-10 SEEN, Ur Squamous Epith Cells 10-25 SEEN, Urine Bacteria 1+, WBC Casts 5-10 SEEN, Urine Mucus 0 SEEN, Urine Yeast 1+ Micro: Microbiology 06/22/24 12:12 Mucosa - Nose SARS-CoV-2, Influenza & RSV (PCR) - Final Influenzae A Imaging Radiology Impression Chest X-Ray 06/22/24 12:30 IMPRESSION: UNREMARKABLE SINGLE VIEW OF THE CHEST AND ABDOMEN. Reading Location: [facility] Chest CTA 06/22/24 13:58 IMPRESSION: No acute thromboembolic disease. Scattered intrapulmonary cysts. Mild peribronchial thickening noted throughout bilateral lung uribe. One or more dose reduction techniques were used (e.g., Automated exposure control, adjustment of the mA and/or kV according to patient size, use of iterative reconstruction technique). Reading Location: [facility] Assessment & Plan Assessment/Plan (1) Influenza A: (2) COPD exacerbation: (3) Atrial fibrillation with RVR: (4) Acidosis, lactic: (5) RUFINA (acute kidney injury): PLAN: Plan Patient is a 53-year-old female who presented [facility] ED on 06/22/2024 with worsening shortness of breath and fatigue. 1. Influenza A infection with acute hypoxia in setting of chronic respiratory failure ? Admit under inpatient status to PCU. Flu A positive on admit. On home 2 L nasal cannula, requiring 3 L to maintain appropriate oxygen saturations in the ED. Was significantly wheezy on exam, improved with breathing treatments in ED. Will treat with scheduled DuoNebs, IV steroids and Tamiflu. Wean supplemental oxygen as able. Continue home inhalers. 2. RUFINA on CKD stage IIIa with dehydration and lactic acidosis ? Creatinine 2.12 on admit, baseline around 1.2. Presumed prerenal secondary to dehydration from flu. Initial lactic acid 5.0, improved to 3.0 with IV fluids and breathing treatments. Monitor daily BMP and urine output. Trend lactic acid until it normalizes. 3. Episode of A-fib with RVR, history of nonsustained SVT ? Patient had episode of A-fib with RVR in the ED. Heart rate went to the 140s to 150s and EKG was consistent with A-fib. Given dose of IV Lopressor with conversion back to sinus rhythm. Notably had episode of nonsustained SVT during a prior admission last year. She was started on Coreg with no recurrence. Will continue home Coreg here. Given this was a transient episode in the setting of flu, will hold on anticoagulation at this time. Continue cardiac monitoring. 4. Elevated troponins ? Troponins 360 > 356. EKG with no ischemic changes and no chest pain on exam. Presume secondary to dehydration from influenza. Treatment as above. Chronic medical conditions: ? Class I obesity: BMI 30 on admit. Complicates hospital course, care and prognosis. ? History of heart failure with recovered ejection fraction, hypertension, hyperlipidemia: Continue home Coreg and statin. Holding home losartan and Lasix. ? GERD: Continue home PPI. ? Anxiety/depression: Continue home sertraline and ziprasidone. DVT prophylaxis: Heparin subcu CODE STATUS: Full code, verified Expected disposition: Home, TBD Total clinical time spent by myself addressing the patient's medical issues, reviewing all the data, and collaborating with patient's care team: 75 minutes. Charges/Coding Visit Charges Inpatient E&M: 59337 Init Hosp L3
[2024-06-22 16:21] LABS: Reflex Lactate? Y
--- NOTE | 2024-06-22 18:52 | EKG12_ITS ---
Test Reason : TACHY Blood Pressure : */* mmHG Vent. Rate : 146 BPM Atrial Rate : 146 BPM P-R Int : 86 ms QRS Dur : 100 ms QT Int : 348 ms P-R-T Axes : 87 74 67 degrees QTcB Int : 542 ms Critical Test Result: High HR Sinus tachycardia with short GA Otherwise normal ECG When compared with ECG of 22-Jun-2024 14:50, MANUAL COMPARISON REQUIRED DATA IS UNCONFIRMED Confirmed by LARRY FRANCO, YVROSE ([id number]), publishing editor TANYA RASHID ([id number]) on 06/24/2024 8:28:52 AM Referred By: Inocente Caldwell Confirmed By: YVROSE JUAREZ MD
[2024-06-22] MEDS: 0.9% Saline Lock 10 ML Syringe IV ×3 (18:59→23:02)
[2024-06-22] MEDS: Ondansetron 4 MG/2 ML Vial IV (18:59)
[2024-06-22] MEDS: hydrOXYzine PAM 25 MG Capsule 50 MG PO (18:59)
[2024-06-22] MEDS: Budesonide Respules 0.5 MG/2 ML AMPUL.NEB. INHALATION (19:52)
[2024-06-22 20:10] LABS: Allen Test Positive; Base Excess -21 mmol/L (-2 to +2); Bicarbonate 8.8 mmol/L (22-26); Blood Gas Specimen Type ART; Mode Not entered; O2 Delivery Device Cannula; PO2 54 mmHG (75-100); SITE R Radial; SO2 77 % (95-99); Total Carbon Dioxide 10 mmol/L; pCO2 27.3 mmHg (35-45); pH 7.11 (7.35-7.45)
[2024-06-22] MEDS: Magnesium Sulfate 2 GM in Dextrose 5%-Water (100mL Bag) 100 ML IV (20:22)
[2024-06-22] MEDS: Furosemide 40 MG/4 ML Vial IV (20:44)
--- NOTE | 2024-06-22 20:50 | CPS ---
Critical ABG values, Dr. jordan aware. Not enough blood for re-run.
[2024-06-22 21:48] LABS: Allen Test Positive; Base Excess -14 mmol/L (-2 to +2); Bicarbonate 12.8 mmol/L (22-26); Blood Gas Specimen Type ART; Mode Not entered; O2 Delivery Device BiPAP; PEEP 10; PIP 16; PO2 77 mmHG (75-100); RR 14; SITE L Radial; SO2 93 % (95-99); Total Carbon Dioxide 14 mmol/L; pCO2 28.8 mmHg (35-45); pH 7.26 (7.35-7.45)
[2024-06-22] MEDS: Ziprasidone HCl 20 MG Capsule 80 MG PO (23:01)
[2024-06-22] MEDS: Heparin Injection (Vial) 5,000 UNIT/ML VIAL 5000 UNIT SC (23:02)
[2024-06-22] MEDS: Atorvastatin Calcium 40 MG Tablet PO (23:02)
[2024-06-23] VITALS (15 sets, daily range): BP systolic 133–183; BP diastolic 66–110; PULSE 61–143; RESP 12–20; TEMP 36.6–37.1; O2SAT 95–99
[2024-06-23 03:50] LABS: Allen Test Positive; Base Excess -7 mmol/L (-2 to +2); Bicarbonate 18.9 mmol/L (22-26); Blood Gas Specimen Type ART; Mode Not entered; O2 Delivery Device Cannula; PO2 81 mmHG (75-100); SITE L Radial; SO2 96 % (95-99); Total Carbon Dioxide 20 mmol/L; pCO2 33.9 mmHg (35-45); pH 7.35 (7.35-7.45)
[2024-06-23 06:48] LABS: Mean Corp Hgb Conc 33.3 g/dL (32-36); Mean Corpuscular Hgb 29.9 pg (27.0-32.0); Mean Corpuscular Volume 89.6 fL (81-99); Mean Platelet Vol. 10.6 fl (6.2-12.0); Platelet Count 230 K/mm3 (150-450); RBC Distribution Width CV 13.5 % (11.6-14.6); RBC Distribution Width SD 44.3 fl (35.1-43.9); Red Blood Count 4.69 M/mm3 (4.2-5.4); White Blood Count 12.2 K/mm3 (4.4-11.0)
[2024-06-23] MEDS: Heparin Injection (Vial) 5,000 UNIT/ML VIAL 5000 UNIT SC ×3 (06:55→20:47)
[2024-06-23] MEDS: Ondansetron 4 MG/2 ML Vial IV ×2 (06:55→15:31)
[2024-06-23] MEDS: 0.9% Saline Lock 10 ML Syringe IV ×6 (06:55→21:34)
[2024-06-23 07:06] LABS: Anion Gap 11 (5-15); BUN 24 mg/dL (7-18); BUN/Creat Ratio 16.9 RATIO (10-20); Calcium,Total 8.1 mg/dL (8.5-10.1); Chloride 104 mmol/L (98-107); Creatinine, Serum 1.42 mg/dL (0.55-1.02); EST Glomerular Filtration Rate 41 mL/min (>60); Est Glom Filt Rate - Afr Amer 49 mL/min (>60); Estimated Creatinine Clearance 46.26 ml/min; Glucose 128 mg/dL (74-106); Potassium 4.1 mmol/L (3.5-5.1); Sodium Level 135 mmol/L (136-145)
[2024-06-23] MEDS: Ipratropium/Albuterol Sulfate 3 ML AMPUL.NEB INHALATION ×2 (07:24→19:23)
[2024-06-23] MEDS: Budesonide Respules 0.5 MG/2 ML AMPUL.NEB. INHALATION (07:24)
[2024-06-23] MEDS: Ziprasidone HCl 20 MG Capsule 60 MG PO (08:52)
[2024-06-23] MEDS: Carvedilol 6.25 MG Tablet PO ×2 (08:52→12:06)
[2024-06-23] MEDS: Oseltamivir Phosphate 30 MG Capsule PO ×2 (08:53→20:47)
[2024-06-23] MEDS: Sertraline 50 MG Tablet 75 MG PO (08:53)
[2024-06-23] MEDS: Metoprolol Tartrate 5 MG/5 ML Vial IV ×2 (09:53→21:34)
[2024-06-23] MEDS: hydrOXYzine PAM 25 MG Capsule 50 MG PO (10:03)
--- NOTE | 2024-06-23 10:37 | PN.HOSP_ITS ---
Reason for Visit Reason for Visit: Diagnoses Acidosis, unspecified (06/22/24) Unspecified atrial fibrillation (06/22/24) Influenza due to other identified influenza virus with other respiratory manifestations (06/22/24) Chronic obstructive pulmonary disease with (acute) exacerbation (06/22/24) Acute kidney failure, unspecified (06/22/24) Objective Data Objective Data Vital Signs: Vital Signs Temp Pulse Resp BP Pulse Ox O2 Del Method O2 Flow Rate 98.4 F 143 H 17 183/110 H 97 Nasal Cannula 2 06/23/24 08:50 06/23/24 09:53 06/23/24 08:50 06/23/24 09:53 06/23/24 08:50 06/23/24 08:50 06/23/24 08:50 FiO2 0 06/23/24 00:15 Oxygen Flow Rate (L/min) 2 Oxygen Delivery Method Nasal Cannula Weight: 175 lb 11.335 oz Body Mass Index (BMI) 30.1 Intake & Output: Intake and Output for Last 24 Hours 06/21/24 06/22/24 06/23/24 23:59 23:59 23:59 Intake Total 4104 / 4104 Output Total 300 / 300 Balance 4104 / 4104 -300 / -300 Lab / Micro Data 06/23/24 05:44 06/23/24 05:44 Labs: Laboratory Results - last 24 hr 06/22/24 12:12: WBC 8.2, RBC 5.24, Hgb 15.7 H, Hct 46.6, MCV 88.9, MCH 30.0, MCHC 33.7, RDW Std Deviation 43.6, RDW Coeff of Joseph 13.4, Plt Count 320, MPV 10.1, Immature Gran % (Auto) 0.600, Neut % (Auto) 71.3 H, Lymph % (Auto) 18.6 L, [place] % (Auto) 9.1, Eos % (Auto) 0.0, Baso % (Auto) 0.4, Absolute Neuts (auto) 5.9, Absolute Lymphs (auto) 1.53, Nucleated RBC % 0, PT 12.7, INR 0.9, APTT 25.9, Sodium 134 L, Potassium 4.4, Chloride 101, Carbon Dioxide 19.0 L, Anion Gap 14, BUN 24 H, Creatinine 2.12 H, Estim Creat Clear Calc 30.64, Est GFR (MDRD) Af Amer 31 L, Est GFR (MDRD) Non-Af 26 L, BUN/Creatinine Ratio 11.3, G lucose 208 H, Hemoglobin A1c 6.0 H, Lactic Acid 5.0 H*, Calcium 8.9, Total Bilirubin 0.40, AST 32, ALT 17, Alkaline Phosphatase 117, Troponin I High Sens 360 H*, Total Protein 8.0, Albumin 3.2, Globulin 4.8 H, Albumin/Globulin Ratio 0.7 L 06/22/24 14:12: Troponin I High Sens 356 H* 06/22/24 14:20: Urine Color Yellow, Urine Clarity Sl. Cloudy, Urine pH 6.0, Ur Specific [place] 1.020, Urine Protein 30 H, Urine Glucose (UA) Normal, Urine Ketones 15 H, Urine Occult Blood 150 H, Urine Nitrite Negative, Urine Bilirubin Negative, Urine Urobilinogen Normal, Ur Leukocyte Esterase Negative, Urine RBC 0-5 SEEN, Urine WBC 5-10 SEEN, Ur Squamous Epith Cells 10-25 SEEN, Urine Bacteria 1+, WBC Casts 5-10 SEEN, Urine Mucus 0 SEEN, Urine Yeast 1+ 06/22/24 15:52: Lactic Acid Cancelled 06/22/24 16:25: Lactic Acid 3.0 H* 06/23/24 05:44: WBC 12.2 H, RBC 4.69, Hgb 14.0, Hct 42.0, MCV 89.6, MCH 29.9, MCHC 33.3, RDW Std Deviation 44.3 H, RDW Coeff of Joseph 13.5, Plt Count 230, MPV 10.6, Sodium 135 L, Potassium 4.1, Chloride 104, Carbon Dioxide 20.0 L, Anion Gap 11, BUN 24 H, Creatinine 1.42 H, Estim Creat Clear Calc 46.26, Est GFR (MDRD) Af Amer 49 L, Est GFR (MDRD) Non-Af 41 L, BUN/Creatinine Ratio 16.9, G lucose 128 H, Calcium 8.1 L Micro: Microbiology 06/22/24 12:12 Mucosa - Nose SARS-CoV-2, Influenza & RSV (PCR) - Final Influenzae A ABG Data ABG results: ABG 06/22/24 06/22/24 06/23/24 20:07 21:45 03:46 Specimen Type ART ART ART Sample Site R Radial L Radial L Radial pH 7.11 L* 7.26 L 7.35 Bicarbonate Actual 8.8 L 12.8 L 18.9 L Total CO2 10 14 20 Base Excess -21 L -14 L -7 L O2 Saturation 77 L 93 L 96 O2 % 6.0 40.0 3.0 ABG pCO2 27.3 L 28.8 L 33.9 L ABG pO2 54 L 77 81 Lester Test Positive Positive Positive Respiration Rate 14 O2 Delivery Device Cannula BiPAP Cannula Vent Mode Not entered Not entered Not entered POC PEEP 10 Peak Inspir Pressure 16 Crit Call To/Read Back Yes Radiography Diagnostic Testing: Radiology Impression Chest X-Ray 06/22/24 12:30 IMPRESSION: UNREMARKABLE SINGLE VIEW OF THE CHEST AND ABDOMEN. Reading Location: [facility] Chest CTA 06/22/24 13:58 IMPRESSION: No acute thromboembolic disease. Scattered intrapulmonary cysts. Mild peribronchial thickening noted throughout bilateral lung uribe. One or more dose reduction techniques were used (e.g., Automated exposure control, adjustment of the mA and/or kV according to patient size, use of iterative reconstruction technique). Reading Location: [facility] Physical Exam Narrative Seen and examined. He was admitted in October for Takotsubo cardiomyopathy, December and first week of May for pneumonia. This time admitted for shortness of breath and cough found to have influenza. She took influenza vaccine. Shortness of breath slightly better. She also had SVT, heart rate around 170 to 180/min yesterday. Heart rate is controlled now. Shows multiple 3-4 beats of NSVT and PVCs Physical exam General: Alert, Oriented x3, Cooperative, obesity grade 1, 30.2 kg/m? HEENT: Atraumatic, PERRLA, EOMI, Normocephalic Oral: No Gingival or Mucosal Lesions/ Ulcerations Neck: Supple, No JVD, Negative Carotid Bruits Chest wall/Lungs: Air entry diminished in bilateral lung bases. Bilateral coarse crepitations Cardiovascular: Regular rate, Regular Rhythm, Normal S1, Normal S2, systolic murmur present Abdomen: Bowel Sounds Present, Soft, Non Tender, Non-Distended : No dysuria. No renal angle tenderness. No suprapubic tenderness. Extremities: No edema, Capillary Refill Less than 3 Seconds Skin: No rashes, No breakdown Musculoskeletal: No Tenderness to Palpation of Joints or Extremities Neurological: Cranial nerves II-XII grossly intact, DTR 2+/4. No acute focal neurological deficit. Psych/Mental Status: Flat affect Assessment & Plan Assessment/Plan (1) Influenza A: (2) COPD exacerbation: (3) Atrial fibrillation with RVR: (4) Acidosis, lactic: (5) RUFINA (acute kidney injury): PLAN: Plan Patient is a 53-year-old female who presented [facility] ED on 06/22/2024 with worsening shortness of breath and fatigue. 1. Influenza A infection with acute hypoxia in setting of chronic respiratory failure ? Admit under inpatient status to PCU. Flu A positive on admit. On home 2 L nasal cannula, requiring 3 L to maintain appropriate oxygen saturations in the ED. continue scheduled DuoNebs, IV steroids and Tamiflu. Wean supplemental oxygen as able. Continue home inhalers. 2/2 shortness of breath and cough slightly better. On Tamiflu. 2. RUFINA on CKD stage IIIa with dehydration and lactic acidosis ? Creatinine 2.12 on admit, baseline around 1.2. Presumed prerenal secondary to dehydration from flu. Initial lactic acid 5.0, improved to 3.0 with IV fluids and breathing treatments. 2/2: Creatinine better 1.42. Lactic acid was 4.0 improved to 3.0. She has lactic acidosis from December 2023 3. Episode of A-fib with RVR, history of nonsustained SVT ? Patient had episode of A-fib with RVR in the ED. Heart rate went to the 140s to 150s and EKG was consistent with A-fib. Given dose of IV Lopressor with conversion back to sinus rhythm. 2/2. She had episodes of SVT during prior admission last year. BP slightly elevated. Currently in sinus rhythm with multiple PVCs and few runs of NSVT. Carvedilol dose increased to 12.5 mg twice daily. 4. Elevated troponins ? Troponins 360 > 356. EKG with no ischemic changes and no chest pain on exam. Presume secondary to dehydration from influenza. Treatment as above. Presumed due to demand ischemia. Patient had cardiac cath last year was found to have Takotsubo cardiomyopathy. Chronic medical conditions: ? Class I obesity: BMI 30 on admit. Complicates hospital course, care and prognosis. ? History of heart failure with recovered ejection fraction, hypertension, hyperlipidemia: Continue home Coreg and statin. Holding home losartan and Lasix. ? GERD: Continue home PPI. ? Anxiety/depression: Continue home sertraline and ziprasidone. DVT prophylaxis: Heparin subcu CODE STATUS: Full code, verified Charges/Coding Visit Charges Inpatient E&M: 07992 Subs Hosp L2
[2024-06-23] MEDS: Carvedilol 12.5 MG Tablet PO (16:04)
[2024-06-23] MEDS: Metoclopramide 10 MG/2 ML Vial 5 MG IV (19:15)
[2024-06-23] MEDS: Ziprasidone HCl 20 MG Capsule 80 MG PO (20:47)
[2024-06-23] MEDS: Atorvastatin Calcium 40 MG Tablet PO (20:47)
[2024-06-24] VITALS (12 sets, daily range): BP systolic 133–170; BP diastolic 63–90; PULSE 61–86; RESP 12–22; TEMP 36.1–36.5; O2SAT 94–98
[2024-06-24] MEDS: Heparin Injection (Vial) 5,000 UNIT/ML VIAL 5000 UNIT SC ×3 (05:39→20:52)
[2024-06-24] MEDS: 0.9% Saline Lock 10 ML Syringe IV ×5 (05:39→20:53)
[2024-06-24] MEDS: Ipratropium/Albuterol Sulfate 3 ML AMPUL.NEB INHALATION ×3 (07:05→19:57)
[2024-06-24] MEDS: Budesonide Respules 0.5 MG/2 ML AMPUL.NEB. INHALATION ×2 (07:05→19:57)
[2024-06-24 08:01] LABS: Absolute Lymphocyte Count 1.06 X10^3/uL (0.83-4.51); Absolute Neutrophil Count 9.8 X10^3/uL (2.0-7.7); Basophil# 0.04 X10^3/uL; Basophil% 0.3 % (0-1); Eosinophil# 1.81 X10^3/uL; Eosinophils% 13.8 % (0-5); Hematocrit 39.8 % (37-47); Hemoglobin 13.6 g/dL (12.0-15.0); Lymphocyte # 1.06 X10^3/ul (0.83-4.51); Lymphocyte % 8.1 % (19-41); Mean Corp Hgb Conc 34.2 g/dL (32-36); Mean Corpuscular Hgb 30.2 pg (27.0-32.0); Mean Corpuscular Volume 88.2 fL (81-99); Monocyte# 0.37 X10^3/uL; Monocyte% 2.8 % (0-10); NRBC Flagged by Analyzer 0 % (0-5); Neutrophil # 9.77 X10^3/uL (2.7-7.7); Neutrophil % 74.3 % (47-70); POSITIVE MORPHOLOGY YES; Platelet Count 177 K/mm3 (150-450); RBC Distribution Width CV 13.5 % (11.6-14.6); RBC Distribution Width SD 43.4 fl (35.1-43.9); Red Blood Count 4.51 M/mm3 (4.2-5.4); White Blood Count 13.1 K/mm3 (4.4-11.0)
[2024-06-24 08:30] LABS: Anion Gap 8 (5-15); BUN 27 mg/dL (7-18); BUN/Creat Ratio 22.1 RATIO (10-20); Calcium,Total 8.4 mg/dL (8.5-10.1); Chloride 103 mmol/L (98-107); Creatinine, Serum 1.22 mg/dL (0.55-1.02); EST Glomerular Filtration Rate 49 mL/min (>60); Est Glom Filt Rate - Afr Amer 59 mL/min (>60); Estimated Creatinine Clearance 53.84 ml/min; Glucose 126 mg/dL (74-106); Potassium 4.2 mmol/L (3.5-5.1); Sodium Level 134 mmol/L (136-145)
[2024-06-24] MEDS: Ondansetron 4 MG/2 ML Vial IV ×2 (09:24→18:21)
[2024-06-24 10:53] LABS: Differential Indicated SCAN CRITERIA MET
[2024-06-24] MEDS: Carvedilol 12.5 MG Tablet PO ×2 (10:57→18:23)
[2024-06-24] MEDS: Sertraline 50 MG Tablet 75 MG PO (10:59)
[2024-06-24] MEDS: Oseltamivir Phosphate 30 MG Capsule PO ×2 (10:59→20:51)
[2024-06-24] MEDS: hydrALAZINE 50 MG Tablet PO ×3 (11:26→20:49)
[2024-06-24] MEDS: Ziprasidone HCl 20 MG Capsule 60 MG PO (11:26)
--- NOTE | 2024-06-24 13:45 | CASEMGMT ---
HENRY العراقي chart review: Patient was admitted 05/24-05/26/24 for respiratory failure related to pneumonia, CHF and COPD exacerbation. See HENRY CM assessment from 05/24/24. Patient was discharged to home with her baseline of 2lpm at rest and 3lpm with ambulation, family support, and follow-up plans in place. Patient returned to [facility] ED on 06/22/24 for increased SOB and fatigue. Patient was admitted influenza A infection with hypoxia. HENRY العراقي in to discuss readmission and discharge need. Patient states she got influenza A from her boyfriend. Patient states she was wearing her oxygen at home as prescribed and taking medications as prescribed. Patient states she has follow-up appt scheduled with PCP at the end of the month. Patient states she has oxygen tank for at discharge. Patient denies needs or help at discharge and wishes to return home. Patient denies further questions or concerns. CM will continue to follow this patient and plan for a safe discharge.
--- NOTE | 2024-06-24 14:49 | PN.HOSP_ITS ---
Reason for Visit Reason for Visit: Diagnoses Acidosis, unspecified (06/22/24) Unspecified atrial fibrillation (06/22/24) Influenza due to other identified influenza virus with other respiratory manifestations (06/22/24) Chronic obstructive pulmonary disease with (acute) exacerbation (06/22/24) Acute kidney failure, unspecified (06/22/24) Objective Data Objective Data Vital Signs: Vital Signs Temp Pulse Resp BP Pulse Ox O2 Del Method O2 Flow Rate 97.1 F L 62 12 159/73 H 94 Nasal Cannula 2 06/24/24 09:25 06/24/24 12:20 06/24/24 12:20 06/24/24 10:55 06/24/24 09:25 06/24/24 10:00 06/24/24 10:00 FiO2 30 06/23/24 23:54 Oxygen Flow Rate (L/min) 2 Oxygen Delivery Method Nasal Cannula Weight: 175 lb 11.335 oz Body Mass Index (BMI) 30.1 Intake & Output: Intake and Output for Last 24 Hours 06/22/24 06/23/24 06/24/24 23:59 23:59 23:59 Intake Total 4104 / 4104 900 / 900 50 / 50 Output Total 1300 / 1300 Balance 4104 / 4104 -400 / -400 50 / 50 Lab / Micro Data 06/24/24 07:47 06/24/24 07:47 Labs: Laboratory Results - last 24 hr 06/24/24 07:47: WBC 13.1 H, RBC 4.51, Hgb 13.6, Hct 39.8, MCV 88.2, MCH 30.2, MCHC 34.2, RDW Std Deviation 43.4, RDW Coeff of Joseph 13.5, Plt Count 177, MPV 11.0, Immature Gran % (Auto) 0.700, Neut % (Auto) 74.3 H, Lymph % (Auto) 8.1 L, [place] % (Auto) 2.8, Eos % (Auto) 13.8 H, Baso % (Auto) 0.3, Absolute Neuts (auto) 9.8 H, Absolute Lymphs (auto) 1.06, Nucleated RBC % 0, Sodium 134 L, Potassium 4.2, Chloride 103, Carbon Dioxide 24.0, Anion Gap 8, BUN 27 H, Creatinine 1.22 H , Estim Creat Clear Calc 53.84, Est GFR (MDRD) Af Amer 59 L, Est GFR (MDRD) Non- Af 49 L, BUN/Creatinine Ratio 22.1 H, Glucose 126 H, Calcium 8.4 L Micro: Microbiology 06/22/24 14:20 Urine, Clean Catch Urine Culture - Final Mixed Gram Positive Organisms 06/22/24 12:12 Mucosa - Nose SARS-CoV-2, Influenza & RSV (PCR) - Final Influenzae A Physical Exam Narrative Seen and examined. Shortness of breath is better but is still sometimes tachypnea. Mild chest congestion. Heart rate controlled.. Blood pressure 159/73. He was admitted in October for Takotsubo cardiomyopathy, December and first week of May for pneumonia. This time admitted for shortness of breath and cough found to have influenza. She took influenza vaccine. Shortness of breath slightly better. She also had SVT, heart rate around 170 to 180/min yesterday. Heart rate is controlled now. Shows multiple 3-4 beats of NSVT and PVCs Physical exam General: Alert, Oriented x3, Cooperative, obesity grade 1, 30.2 kg/m? HEENT: Atraumatic, PERRLA, EOMI, Normocephalic Oral: No Gingival or Mucosal Lesions/ Ulcerations Neck: Supple, No JVD, Negative Carotid Bruits Chest wall/Lungs: Air entry diminished in bilateral lung bases. Bilateral coarse crepitations, but Cardiovascular: Regular rate, Regular Rhythm, Normal S1, Normal S2, systolic murmur present Abdomen: Bowel Sounds Present, Soft, Non Tender, Non-Distended : No dysuria. No renal angle tenderness. No suprapubic tenderness. Extremities: No edema, Capillary Refill Less than 3 Seconds Skin: No rashes, No breakdown Musculoskeletal: No Tenderness to Palpation of Joints or Extremities Neurological: Cranial nerves II-XII grossly intact, DTR 2+/4. No acute focal neurological deficit. Psych/Mental Status: Flat affect Assessment & Plan Assessment/Plan (1) Influenza A: (2) COPD exacerbation: (3) Atrial fibrillation with RVR: (4) Acidosis, lactic: (5) RUFINA (acute kidney injury): PLAN: Plan Patient is a 53-year-old female who presented [facility] ED on 06/22/2024 with worsening shortness of breath and fatigue. 1. Influenza A infection with acute hypoxia in setting of chronic respiratory failure ? Admit under inpatient status to PCU. Flu A positive on admit. On home 2 L nasal cannula, requiring 3 L to maintain appropriate oxygen saturations in the ED. continue scheduled DuoNebs, IV steroids and Tamiflu. Wean supplemental oxygen as able. Continue home inhalers. 2/ shortness of breath and cough slightly better. On Tamiflu. 3: Coarse crepitations. Mild hypoxia. Anticipate discharge tomorrow 2. RUFINA on CKD stage IIIa with dehydration and lactic acidosis ? Creatinine 2.12 on admit, baseline around 1.2. Presumed prerenal secondary to dehydration from flu. Initial lactic acid 5.0, improved to 3.0 with IV fluids and breathing treatments. 06/23: Creatinine better 1.42. Lactic acid was 4.0 improved to 3.0. She has lactic acidosis from December 202306/24: Creatinine 1.22. Improving 3. Episode of A-fib with RVR, history of nonsustained SVT ? Patient had episode of A-fib with RVR in the ED. Heart rate went to the 140s to 150s and EKG was consistent with A-fib. Given dose of IV Lopressor with conversion back to sinus rhythm. 06/23. She had episodes of SVT during prior admission last year. BP slightly elevated. Currently in sinus rhythm with multiple PVCs and few runs of NSVT. Carvedilol dose increased to 12.5 mg twice daily. 06/24: Heart rate is controlled 4. Elevated troponins ? Troponins 360 > 356. EKG with no ischemic changes and no chest pain on exam. Presume secondary to dehydration from influenza. Treatment as above. Presumed due to demand ischemia. Patient had cardiac cath last year was found to have Takotsubo cardiomyopathy. Chronic medical conditions: ? Class I obesity: BMI 30 on admit. Complicates hospital course, care and prognosis. ? History of heart failure with recovered ejection fraction, hypertension, hyperlipidemia: Continue home Coreg and statin. Holding home losartan and Lasix. ? GERD: Continue home PPI. ? Anxiety/depression: Continue home sertraline and ziprasidone. DVT prophylaxis: Heparin subcu CODE STATUS: Full code, verified Charges/Coding Visit Charges Inpatient E&M: 82432 Subs Hosp L2
[2024-06-24] MEDS: Ziprasidone HCl 20 MG Capsule 80 MG PO (20:50)
[2024-06-24] MEDS: Atorvastatin Calcium 40 MG Tablet PO (20:51)
[2024-06-25] VITALS (7 sets, daily range): BP systolic 130–160; BP diastolic 61–82; PULSE 61–112; RESP 16–20; TEMP 36.1–36.6; O2SAT 94–98
--- NOTE | 2024-06-25 04:32 | CPS ---
Pt chose not to wear bipap tonight.
[2024-06-25] MEDS: hydrALAZINE 50 MG Tablet PO (05:15)
[2024-06-25] MEDS: Heparin Injection (Vial) 5,000 UNIT/ML VIAL 5000 UNIT SC (05:17)
[2024-06-25] MEDS: 0.9% Saline Lock 10 ML Syringe IV (05:19)
[2024-06-25] MEDS: Ipratropium/Albuterol Sulfate 3 ML AMPUL.NEB INHALATION ×2 (07:23→13:28)
[2024-06-25] MEDS: Budesonide Respules 0.5 MG/2 ML AMPUL.NEB. INHALATION (07:23)
[2024-06-25 07:49] LABS: Anion Gap 7 (5-15); BUN 31 mg/dL (7-18); BUN/Creat Ratio 29.2 RATIO (10-20); Calcium,Total 8.3 mg/dL (8.5-10.1); Chloride 104 mmol/L (98-107); Creatinine, Serum 1.06 mg/dL (0.55-1.02); EST Glomerular Filtration Rate 57 mL/min (>60); Est Glom Filt Rate - Afr Amer 69 mL/min (>60); Estimated Creatinine Clearance 61.97 ml/min; Glucose 147 mg/dL (74-106); Potassium 3.9 mmol/L (3.5-5.1); Sodium Level 135 mmol/L (136-145)
[2024-06-25 07:58] LABS: Absolute Lymphocyte Count 1.16 X10^3/uL (0.83-4.51); Basophil# 0.02 X10^3/uL; Basophil% 0.2 % (0-1); Hematocrit 39.3 % (37-47); Lymphocyte # 1.16 X10^3/ul (0.83-4.51); Lymphocyte % 10.9 % (19-41); Mean Corp Hgb Conc 33.1 g/dL (32-36); Mean Corpuscular Hgb 29.5 pg (27.0-32.0); Mean Corpuscular Volume 89.1 fL (81-99); Mean Platelet Vol. 11.5 fl (6.2-12.0); Monocyte% 2.8 % (0-10); NRBC Flagged by Analyzer 0 % (0-5); Neutrophil # 9.04 X10^3/uL (2.7-7.7); Neutrophil % 85.2 % (47-70); POSITIVE MORPHOLOGY YES; Platelet Count 177 K/mm3 (150-450); RBC Distribution Width CV 13.5 % (11.6-14.6); RBC Distribution Width SD 44.8 fl (35.1-43.9); Red Blood Count 4.41 M/mm3 (4.2-5.4); White Blood Count 10.6 K/mm3 (4.4-11.0)
[2024-06-25 07:59] LABS: Differential Indicated SCAN CRITERIA MET
[2024-06-25 08:22] LABS: Atypical Lymphocyte 1+ %; Platelet Estimate ADEQUATE (ADEQ)
[2024-06-25 08:23] LABS: Red Cell Morphology NORM C+C NORMAL (NORM C&C)
[2024-06-25] MEDS: Carvedilol 12.5 MG Tablet PO (09:27)
[2024-06-25] MEDS: Oseltamivir Phosphate 30 MG Capsule PO (09:28)
[2024-06-25] MEDS: Ziprasidone HCl 20 MG Capsule 60 MG PO (09:28)
[2024-06-25] MEDS: Sertraline 50 MG Tablet 75 MG PO (09:28)
--- NOTE | 2024-06-25 10:59 | DCINST_ITS ---
Discharge Instructions DC O2, CPAP, BIPAP needs RN Home O2 Qualification: Home O2 Qualification: Is the patient on home oxygen Yes 06/25/24 11:52 Home O2 Qualification: AT REST 1-Pulse Ox at rest 95 06/25/24 11:52 1- Oxygen flow rate at rest 2 06/25/24 11:52 Home O2 Qualification: WITH AMBULATION 1- Pulse Ox with ambulation 94 06/25/24 11:52 1- Oxygen Flow Rate with 2 06/25/24 11:52 ambulation Home O2 Discharge instructions: Yes Type of respiratory needs?: Oxygen Oxygen fr equency: Continuous Continuous oxygen liters per minute: 2 L/M and With Ambulation Oxygen liters per minute during Ambulation: 3 l/M Follow Up Care Test Results: Test results from this visit will be discussed in further detail at your follow- up appointment, if applicable. Discharge Plan Admission Admit Date/Time: 06/22/24 15:49 Primary Reason for Your Visit: Influenza A, A-fib RVR, COPD exacerbation Attending Provider: Leonard Rebollar Primary Care Provider: Susy Funez Consulting Providers: Uriel Jara Discharge Orders/Prescriptions Prescriptions: New carvedilol 12.5 mg Tablet 12.5 mg PO BIDCM 30 Days Qty: 60 2RF ipratropium-albuterol 0.5 mg-3 mg(2.5 mg base)/3 mL Solution For Nebulization 3 ml inhalation Q6HWA.RT PRN (Reason: sob) 30 Days Qty: 90 0RF hydralazine 50 mg Tablet 50 mg PO TID 30 Days Qty: 90 0RF oseltamivir 30 mg Capsule 30 mg PO BID Qty: 5 0RF prednisone 20 mg tablet 40 mg PO DAILY 5 Days Qty: 10 0RF Continued albuterol sulfate 1 INHALER inhaler 2 puff inhalation Q6H PRN (Reason: COPD) atorvastatin 40 mg tablet 40 mg PO QHS omeprazole 40 mg capsule,delayed release(DR/EC) 40 mg PO DAILY ziprasidone HCl 80 mg capsule 80 mg PO QHS sertraline 50 mg tablet 75 mg PO DAILY carvedilol 6.25 mg Tablet 6.25 mg PO BID 30 Days Qty: 60 2RF fluticasone propion-salmeterol 100-50 mcg/dose blister with device 1 ea INHALATION BID ziprasidone HCl 60 mg capsule 60 mg PO DAILY losartan 100 mg tablet 100 mg PO DAILY Changed hydroxyzine pamoate 100 mg capsule 50 mg PO BID 3 Days Qty: 0 0RF Held potassium chloride 20 mEq Tablet,Er Particles/Crystals 20 meq PO BIDCM Qty: 60 0RF Hold Instructions: Hold it while Lasix is on hold furosemide 40 mg tablet 40 mg PO DAILY Qty: 60 3RF Hold Instructions: Hold for 1 week advised BMP with PCP before resumption Discontinued albuterol sulfate 2.5 mg /3 mL (0.083 %) solution for nebulization 2.5 mg inhalation Q6H PRN (Reason: wheezing) Referrals / Follow Up: Susy Funez MD [Primary Care Provider] - Disposition Disposition (needs filled in before D/C Order can be placed): Home, Self Care
--- NOTE | 2024-06-25 12:49 | PCM.DC.SUM ---
Providers Date of Admission: 06/22/24 Date of Discharge: 06/25/24 Primary Care Physician: Dr. Susy Funez MD Reason For Visit: INFLUENZA A INFECTION W/HYPOXIA Diagnosis Discharge Diagnosis (1) Influenza A: Status: Acute Code(s): J10.1 - Influenza due to other identified influenza virus with other respiratory manifestations (2) COPD exacerbation: Status: Chronic Code(s): J44.1 - Chronic obstructive pulmonary disease with (acute) exacerbation (3) Atrial fibrillation with RVR: Status: Acute Code(s): I48.91 - Unspecified atrial fibrillation (4) Acidosis, lactic: Status: Acute Code(s): E87.20 - Acidosis, unspecified (5) RUFINA (acute kidney injury): Status: Acute Code(s): N17.9 - Acute kidney failure, unspecified Plan Patient is a 53-year-old female who presented [facility] ED on 06/22/2024 with worsening shortness of breath and fatigue. 1. Influenza A infection with acute hypoxia in setting of chronic respiratory failure with COPD exacerbation ? Admit under inpatient status to PCU. Flu A positive on admit. On home 2 L nasal cannula, requiring 3 L to maintain appropriate oxygen saturations in the ED. continue scheduled DuoNebs, IV steroids and Tamiflu. Wean supplemental oxygen as able. Continue home inhalers. 2/2 shortness of breath and cough slightly better. On Tamiflu. 2/3: Coarse crepitations. Mild hypoxia. Anticipate discharge tomorrow 06/25: Her breathing is better. She is on baseline 2 L of oxygen at rest and 3 L on ambulation. Prescription given for DuoNeb nebulization and prednisone burst therapy. 2. RUFINA on CKD stage IIIa with dehydration and lactic acidosis ? Creatinine 2.12 on admit, baseline around 1.2. Presumed prerenal secondary to dehydration from flu. Initial lactic acid 5.0, improved to 3.0 with IV fluids and breathing treatments. 2: Creatinine better 1.42. Lactic acid was 4.0 improved to 3.0. She has lactic acidosis from December 202306/24: Creatinine 1.22. Improving 06/25: Creatinine is 1.06. Hold Lasix and potassium supplement. Follow with PCP with repeat BMP in 3 to 4 days. 3. Episode of A-fib with RVR, history of nonsustained SVT ? Patient had episode of A-fib with RVR in the ED. Heart rate went to the 140s to 150s and EKG was consistent with A-fib. Given dose of IV Lopressor with conversion back to sinus rhythm. 06/23. She had episodes of SVT during prior admission last year. BP slightly elevated. Currently in sinus rhythm with multiple PVCs and few runs of NSVT. Carvedilol dose increased to 12.5 mg twice daily. 06/24: Heart rate is controlled 4. Elevated troponins ? Troponins 360 > 356. EKG with no ischemic changes and no chest pain on exam. Presume secondary to dehydration from influenza. Treatment as above. Presumed due to demand ischemia. Patient had cardiac cath last year was found to have Takotsubo cardiomyopathy. Chronic medical conditions: ? Class I obesity: BMI 30 on admit. Complicates hospital course, care and prognosis. ? History of heart failure with recovered ejection fraction, hypertension, hyperlipidemia: Continue home Coreg and statin. Holding home losartan and Lasix. ? GERD: Continue home PPI. ? Anxiety/depression: Continue home sertraline and ziprasidone. DVT prophylaxis: Heparin subcu CODE STATUS: Full code, verified Discharge medication reconciliation done. Discharge follow-up instructions completed. Discharge process discussed with the patient and all questions were answered to patient's satisfaction. Follow with PCP in 1 to 2 weeks Total time spent, exact 35 minutes on discharge meds reconciliation, examination, coordination of care with nurses and ancillary staff, review of imaging and blood test and discussion with the patient on follow-up instructions. Medications at Discharge Home Medications albuterol sulfate 90 mcg/actuation aerosol inhaler 2 puff inhalation Q6H PRN COPD 02/02/19 atorvastatin 40 mg tablet 40 mg PO QHS cholesterol 11/07/23 omeprazole 40 mg capsule,delayed release 40 mg PO DAILY GERD 11/07/23 sertraline 50 mg tablet 75 mg PO DAILY Mood 11/07/23 ziprasidone HCl 80 mg capsule 80 mg PO QHS antipsychotic 11/07/23 carvedilol 6.25 mg tablet 6.25 mg PO BID blood pressure 30 days #60 tabs 11/10/23 fluticasone 100 mcg-salmeterol 50 mcg/dose blistr powdr for inhalation 1 ea inhalation BID allergies 01/10/24 furosemide 40 mg tablet 40 mg PO DAILY edema #60 tabs 05/26/24 Held on 06/25/24. Instructions: Hold for 1 week advised BMP with PCP before resumption potassium chloride 20 mEq tablet,extended release(part/cryst) 20 meq PO BIDCM supplement #60 tabs 05/26/24 Held on 06/25/24. Instructions: Hold it while Lasix is on hold losartan 100 mg tablet 100 mg PO DAILY bp 06/22/24 ziprasidone HCl 60 mg capsule 60 mg PO DAILY bipolar 06/22/24 carvedilol 12.5 mg tablet 12.5 mg PO BIDCM 30 days #60 tabs 06/25/24 hydralazine 50 mg tablet 50 mg PO TID 30 days #90 tabs 06/25/24 hydroxyzine pamoate 100 mg capsule 50 mg (1/2 x 100 mg) PO BID Anxiety 3 days #0 caps 06/25/24 ipratropium 0.5 mg-albuterol 3 mg (2.5 mg base)/3 mL nebulization soln 3 ml inhalation Q6HWA.RT PRN sob 1 month #90 mL 06/25/24 oseltamivir 30 mg capsule 30 mg PO BID #5 caps 06/25/24 prednisone 20 mg tablet 40 mg (2 x 20 mg) PO DAILY 5 days #10 tabs 06/25/24 Physical Exam Narrative Seen and examined. Shortness of breath has almost resolved. Patient on baseline. Chest congestion is resolved. Blood pressure and heart rate better controlled He was admitted in October for Takotsubo cardiomyopathy, December and first week of May for pneumonia. This time admitted for shortness of breath and cough found to have influenza. She took influenza vaccine. Physical exam General: Alert, Oriented x3, Cooperative, obesity grade 1, 30.2 kg/m? HEENT: Atraumatic, PERRLA, EOMI, Normocephalic Oral: No Gingival or Mucosal Lesions/ Ulcerations Neck: Supple, No JVD, Negative Carotid Bruits Chest wall/Lungs: Air entry diminished in bilateral lung bases. Mild coarse crepitation bilateral Cardiovascular: Regular rate, Regular Rhythm, Normal S1, Normal S2, systolic murmur present Abdomen: Bowel Sounds Present, Soft, Non Tender, Non-Distended : No dysuria. No renal angle tenderness. No suprapubic tenderness. Extremities: No edema, Capillary Refill Less than 3 Seconds Skin: No rashes, No breakdown Musculoskeletal: No Tenderness to Palpation of Joints or Extremities Neurological: Cranial nerves II-XII grossly intact, DTR 2+/4. No acute focal neurological deficit. Psych/Mental Status: Flat affect Weight / BMI Weight Weight: 175 lb 11.335 oz Body Mass Index (BMI) 30.1 ABG / Lab / Microbiology Data 06/25/24 06:50 06/25/24 06:50 Laboratory: Laboratory Results - last 24 hr 06/25/24 06:50: WBC 10.6, RBC 4.41, Hgb 13.0, Hct 39.3, MCV 89.1, MCH 29.5, MCHC 33.1, RDW Std Deviation 44.8 H, RDW Coeff of Joseph 13.5, Plt Count 177, MPV 11.5, Immature Gran % (Auto) 0.900, Neut % (Auto) 85.2 H, Lymph % (Auto) 10.9 L, [place] % (Auto) 2.8, Eos % (Auto) 0.0, Baso % (Auto) 0.2, Absolute Neuts (auto) 9.0 H, Absolute Lymphs (auto) 1.16, Nucleated RBC % 0, Atypical Lymphocytes 1+, Reactive Lymphocytes Not Reportable, Platelet Estimate ADEQUATE, RBC Morphology NORM C+C, Sodium 135 L, Potassium 3.9, Chloride 104, Carbon Dioxide 24.0, Anion Gap 7, BUN 31 H, Creatinine 1.06 H, Estim Creat Clear Calc 61.97, Est GFR (MDRD) Af Amer 69, Est GFR (MDRD) Non-Af 57 L, BUN/Creatinine Ratio 29.2 H, Glucose 147 H, Calcium 8.3 L Microbiology: Microbiology 06/22/24 13:15 Blood Culture (Wb) - Anticubital Right Blood Culture - Preliminary No growth in 48 hours. 06/22/24 12:22 Blood Culture (Wb) - Anticubital Left Blood Culture - Preliminary No growth in 48 hours. 06/22/24 14:20 Urine, Clean Catch Urine Culture - Final Mixed Gram Positive Organisms 06/22/24 12:12 Mucosa - Nose SARS-CoV-2, Influenza & RSV (PCR) - Final Influenzae A D/C Instructions DC O2, CPAP, BIPAP Needs RN Home O2 Qualification: Home O2 Qualification: Is the patient on home oxygen Yes 06/25/24 11:52 Home O2 Qualification: AT REST 1-Pulse Ox at rest 95 06/25/24 11:52 1- Oxygen flow rate at rest 2 06/25/24 11:52 Home O2 Qualification: WITH AMBULATION 1- Pulse Ox with ambulation 94 06/25/24 11:52 1- Oxygen Flow Rate with 2 06/25/24 11:52 ambulation PSN CPAP & BiPAP: BiPAP & CPAP Settings per PSN Mode BiPAP 06/24/24 22:31 Bipap Delivery Device Face Mask 06/23/24 23:54 BiPAP Inspiratory Pressure 16 06/23/24 23:54 BiPAP Expiratory Pressure 10 06/23/24 23:54 BiPAP Rate 12 06/23/24 23:54 Fraction of Inspired Oxygen ( 30 06/23/24 23:54 FIO2) Home O2 Discharge instructions: Yes Type of respiratory needs?: Oxygen Oxygen frequency: Continuous Continuous oxygen liters per minute: 2 L/M and With Ambulation Oxygen liters per minute during Ambulation: 3 l/M DC home with Oxygen: Yes Home O2 MD Review: I have reviewed the oxygen testing, and the patient qualifies for home oxygen equipment and portability. The patient is mobile in the home and the community. Meaningful Use Info Meaningful Use Meaningful Use Diagnoses (Choose all that apply): None applicable Ischemic Stroke Statin Dosing Therapy Reference: STATIN DOSE THERAPY REFERENCE: * Patients > 75 years receive moderate or high dose statin therapy. * Patients 75 years or YOUNGER should receive HIGH intensity statin dose unless contraindicated. You will be required to document reason for non-treatment if statin daily dose does not meet guidelines. HIGH DOSE STATIN THERAPY DAILY Atorvastatin > than or = to 40 mg Rosuvastatin > than or = to 20 mg Amlodipine + Atorvastatin > than or = to 2.5/40 mg Ezetimibe + Simvastatin 10/80 mg Simvastatin 80mg Discharge Plan Admission Admit Date/Time: 06/22/24 15:49 Primary Reason for Your Visit: Influenza A, A-fib RVR, COPD exacerbation Attending Provider: Leonard Rebollar Primary Care Provider: Susy Funez Consulting Providers: Uriel Jara Discharge Orders/Prescriptions Prescriptions: New carvedilol 12.5 mg Tablet 12.5 mg PO BIDCM 30 Days Qty: 60 2RF ipratropium-albuterol 0.5 mg-3 mg(2.5 mg base)/3 mL Solution For Nebulization 3 ml inhalation Q6HWA.RT PRN (Reason: sob) 30 Days Qty: 90 0RF hydralazine 50 mg Tablet 50 mg PO TID 30 Days Qty: 90 0RF oseltamivir 30 mg Capsule 30 mg PO BID Qty: 5 0RF prednisone 20 mg tablet 40 mg PO DAILY 5 Days Qty: 10 0RF Continued albuterol sulfate 1 INHALER inhaler 2 puff inhalation Q6H PRN (Reason: COPD) atorvastatin 40 mg tablet 40 mg PO QHS omeprazole 40 mg capsule,delayed release(DR/EC) 40 mg PO DAILY ziprasidone HCl 80 mg capsule 80 mg PO QHS sertraline 50 mg tablet 75 mg PO DAILY carvedilol 6.25 mg Tablet 6.25 mg PO BID 30 Days Qty: 60 2RF fluticasone propion-salmeterol 100-50 mcg/dose blister with device 1 ea INHALATION BID ziprasidone HCl 60 mg capsule 60 mg PO DAILY losartan 100 mg tablet 100 mg PO DAILY Changed hydroxyzine pamoate 100 mg capsule 50 mg PO BID 3 Days Qty: 0 0RF Held potassium chloride 20 mEq Tablet,Er Particles/Crystals 20 meq PO BIDCM Qty: 60 0RF Hold Instructions: Hold it while Lasix is on hold furosemide 40 mg tablet 40 mg PO DAILY Qty: 60 3RF Hold Instructions: Hold for 1 week advised BMP with PCP before resumption Discontinued albuterol sulfate 2.5 mg /3 mL (0.083 %) solution for nebulization 2.5 mg inhalation Q6H PRN (Reason: wheezing) Referrals / Follow Up: Susy Funez MD [Primary Care Provider] - Disposition Disposition (needs filled in before D/C Order can be placed): Home, Self Care Charges/Coding Visit Charges Inpatient E&M: 99793 Disch Hosp >30min
--- NOTE | 2024-06-25 13:03 | CASEMGMT ---
Patient has order for discharge. Patient is maintaining on home oxygen as previously ordered. HENRY CM in to discuss needs at discharge. Patient states she has oxygen tank for at discharge. Patient denies needs or help at discharge. Patient had no further questions or concerns. HENRY العراقي updated discharge plan.
== END 2024-06-25 15:02 | disposition home or self-care (01) | DRG 191 ==
LOC: ED 16:00 → PCU 17:12
PROVIDERS: Admitting Provider Hospitalist; Emergency Provider Emergency Medicine; PCP Internal Medicine; Referring Provider Emergency Medicine; Visit Provider Internal Medicine
DX: J44.1 Chronic obstructive pulmonary disease with (acute) exacerbation (principal); I24.89 Other forms of acute ischemic heart disease; E87.20 Acidosis, unspecified; J96.11 Chronic respiratory failure with hypoxia; I47.10 Supraventricular tachycardia, unspecified; I13.0 Hypertensive heart and chronic kidney disease with heart failure and stage 1 through stage 4 chronic kidney disease, or unspecified chronic kidney disease; I50.32 Chronic diastolic (congestive) heart failure; N17.9 Acute kidney failure, unspecified; I48.91 Unspecified atrial fibrillation; E86.0 Dehydration; F31.9 Bipolar disorder, unspecified; N18.31 Chronic kidney disease, stage 3a; E66.811 Obesity, class 1; J10.1 Influenza due to other identified influenza virus with other respiratory manifestations; F41.9 Anxiety disorder, unspecified; I25.2 Old myocardial infarction; K21.9 Gastro-esophageal reflux disease without esophagitis; G47.33 Obstructive sleep apnea (adult) (pediatric); I49.3 Ventricular premature depolarization; Z99.81 Dependence on supplemental oxygen; Z88.0 Allergy status to penicillin; Z86.73 Personal history of transient ischemic attack (TIA), and cerebral infarction without residual deficits; Z79.899 Other long term (current) drug therapy; Z87.891 Personal history of nicotine dependence; Z86.79 Personal history of other diseases of the circulatory system; Z68.30 Body mass index [BMI] 30.0-30.9, adult
CPT/HCPCS: 36415; 36600; 71046; 71275; 80048; 80053; 81001; 82803; 83036; 83605; 84484; 85025; 85027; 85610; 85730; 87040; 87086; 87088; 87631; 93005; 94002; 94640; 94668; 94762; 97802; 99284; 99406; Q9967; A4216; J1940; J2405

== ENCOUNTER 2024-09-11 11:32 | Emergency (ER) | payer MEDICARE, MEDICAID, SELFPAY ==
[2024-09-11 11:32] VITALS: BP 134/66; PULSE 85; RESP 18; TEMP 36.6; O2SAT 99; BMI 29.9
--- NOTE | 2024-09-11 11:57 | EDS_ITS ---
HPI History of Present Illness Chief Complaint: Upper Extremity Injury Detail of Chief Complaint: Right shoulder pain Informant: patient Narrative Narrative: Patient presents with right shoulder pain x 1 week. She denies injury. She has a hard time moving the shoulder because of pain. She states that she had similar issues with her left shoulder when she tore her rotator cuff. She denies chest pain or shortness of breath. She is right-hand dominant. She denies injury or lifting. [facility] Medical History Shock Elevated troponin Transaminitis Non-ST elevation NC (NSTEMI) Pneumonia Takotsubo cardiomyopathy Bipolar disorder Anxiety Depression Osteoarthritis Kidney stones Hx of gastroesophageal reflux (GERD) Smoker BiPAP (biphasic positive airway pressure) dependence Asthma Myocardial infarct Chest pain Stroke/cerebrovascular accident Migraines Seizures Ulcerative colitis Hypertension COPD (chronic obstructive pulmonary disease) Home Medications ?Medication ?Instructions ?Recorded ?Last Taken ?Type albuterol sulfate 90 mcg/actuation 2 puff inhalation Q 6H PRN COPD 02/02/19 01/09/24 History aerosol inhaler atorvastatin 40 mg tablet 40 mg PO QHS cholesterol 06/21/24 History omeprazole 40 mg capsule,delayed 40 mg PO DAILY GERD 0 11/07/23 06/21/24 History release sertraline 50 mg tablet 75 mg PO DAILY Mood 11/07/23 06/21/24 History ziprasidone HCl 80 mg capsule 80 mg PO QHS antipsychot ic 11/07/23 06/21/24 History carvedilol 6.25 mg tablet 6.25 mg PO BID blood pressur e 30 11/10/23 06/21/24 Rx days #60 tabs fluticasone 100 mcg-salmeterol 50 1 ea inhalation BID allergies 01/10/24 0 06/21/24 History mcg/dose blistr powdr for inhalation furosemide 40 mg tablet 40 mg PO DAILY edema #60 tab s 05/26/24 06/21/24 Rx Held on 06/25/24. Instructions: Hold for 1 week advised BMP with PCP before resumption potassium chloride 20 mEq 20 meq PO BIDCM supplement # 60 tabs 05/26/24 06/21/24 Rx tablet,extended release(part/cryst) Held on 06/25/24. Instructions: Hold it while Lasix is on hold losartan 100 mg tablet 100 mg PO DAILY bp 06/22/24 06/22/24 History ziprasidone HCl 60 mg capsule 60 mg PO DAILY bipolar 0 06/22/24 06/21/24 History carvedilol 12.5 mg tablet 12.5 mg PO BIDCM 30 days #60 tabs 06/25/24 Unknown Rx hydralazine 50 mg tablet 50 mg PO TID 30 days #90 tab s 06/25/24 Unknown Rx hydroxyzine pamoate 100 mg capsule 50 mg (1/2 x 100 mg ) PO BID 06/25/24 06/21/24 Rx Anxiety 3 days #0 caps ipratropium 0.5 mg-albuterol 3 mg 3 ml inhalation Q6HW A.RT PRN sob 1 06/25/24 Unknown Rx (2.5 mg base)/3 mL nebulization month #90 mL soln oseltamivir 30 mg capsule 30 mg PO BID #5 caps 5 Unknown Rx prednisone 20 mg tablet 40 mg (2 x 20 mg) PO DAILY 5 days 06/25/24 Unknown Rx #10 tabs hydrocodone-acetaminophen 5-325mg 1 tab PO Q4H PRN PRN Pain 2 days 09/11/24 Unknown Rx 5mg-325mg #10 TABLETS Allergy/AdvReac Type Severity Reaction Status Date / Time meperidine (From Demerol) Allergy Other Verified 09/11/24 11:35 metronidazole (From Flagyl) Allergy Hives Verified 09/11/24 11:35 oxycodone (From Percocet) Allergy Hives Verified 09/11/24 11:35 Penicillins Allergy Hives Verified 09/11/24 11:35 aspirin AdvReac Vomiting Verified 09/11/24 11:35 Family History Mother Myocardial infarction Cancer Brother Myocardial infarction Surgical History History of left heart catheterization (~10/2023) Hx of hysterectomy History of appendectomy Social History Smoking Status: Former smoker how long ago did patient quit smoking: Quit 2 weeks ago per patient report on 01/12/2024 alcohol intake: never substance use type: does not use caffeine: Yes (occasionally) ROS ROS ED Review of Systems ROS Unobtainable: other Constitutional Constitutional ED: Reports lethargy; Denies chills, fever(s), sweats or weight loss Eyes Eyes: Denies blurry vision, change in vision or diplopia ENT ENT ED: Denies rhinorrhea or sore throat Cardiovascular Cardiovascular: Denies chest pain, orthopnea or racing heartbeat Respiratory/Chest Respiratory/Chest: Denies cough, dyspnea, dyspnea on exertion, orthopnea or sputum Gastrointestinal Gastrointestinal: Denies abdominal pain, diarrhea, nausea or vomiting Genitourinary Genitourinary ED: Denies dysuria, hematuria or urinary frequency Musculoskeletal Musculoskeletal: Reports other Details: Right shoulder pain ; Denies arthralgias, back pain, myalgias or neck pain Integumentary Denies abscess, Abrasions or rash Neurologic Neurologic: Denies headache(s) or weakness Psychiatric Psychiatric: Denies anxiety, depression or suicidal thoughts Endocrine Endocrinology: Denies polydipsia, polyphagia or polyuria Hematologic/Lymphatic Hematologic/Lymphatic: Denies easy bleeding, easy bruising or lymphadenopathy Allergic/Immunologic Allergic/Immunologic ED: Denies mouth swelling, tongue swelling or urticaria EXAM Physical Exam Const Vital Signs: 09/11/24 11:32 Temperature 97.8 F Temperature Source Oral Pulse Rate 85 Respiratory Rate 18 Blood Pressure 134/66 H Blood Pressure Mean 88 Pulse Ox 99 Oxygen Delivery Method Room Air Positive well nourished and well developed General Appearance ED: well developed and NAD HEENT Reports TM's clear and moist mucous membranes normocephalic and atraumatic; Negative for trauma or tenderness Tympanic Membrane ED: Yes TM's clear Eyes PERRL and EOMs intact bilaterally General Eye ED: Negative for pale conjunctiva or scleral icterus Neck no lymphadenopathy, supple and no JVD General: Negative for tenderness Chest Wall inspection of chest normal and palpation of chest normal Chest: Negative for tenderness Resp normal respiratory effort and clear to auscultation bilaterally Effort and Inspection: Negative for respiratory distress or pain with movement Auscultation: Negative for rhonchi, wheezes or diminished lung sounds Cardio regular rate, regular rhythm, S1 normal heart sound, S2 normal heart sound and no murmurs Peripheral Pulses: pulses 2+ throughout GI normal to inspection, nondistended, normoactive bowel sounds, soft to palpation, non-tender, non-distended and no masses Back/Spine no CVA tenderness and no thoracic nor lumbar tenderness Extremity Extremity Narrative: Right shoulder-there is no erythema or warmth. She has tenderness palpation anteriorly over the glenohumeral joint. She has limited ability to abduct secondary to pain. She is neurovascular intact distally. General Extremety ED: Negative for edema General Extremity: Negative for edema Neuro oriented x3, CN's II-XII intact bilaterally, no sensory deficits noted and gait normal Sensorium / Orientation: awake, alert, oriented to person, oriented to place and oriented to time Motor Exam: strength 5/5 throughout and strength abnormal Psych mental status grossly normal Skin no rashes or lesions noted and no wounds MDM MDM MDM Narrative Medical decision making narrative: Patient presents with atraumatic right shoulder pain with limited range of motion. In the differential would be potential for rotator cuff injury or bursitis or bicep tendon tendinitis. No signs of infection on exam. Clinically she looks well. Will give a sling for comfort. Will write for [place] for pain as she is tolerated this well in the past. Will refer to orthopedics for follow-up and she understands she may need further workup or possibly even imaging such as MRI to evaluate if her symptoms persist or worsen. Radiography Diagnostic Testin view x-rays of the right shoulder obtained interpreted by myself as no evidence of fracture or dislocation. Radiology in agreement. Discharge Plan Triage Chief Complaint: Upper Extremity Injury ED Provider: Indira Galindo Dx/Rx/DC Orders Clinical Impression: Acute pain of right shoulder Instructions: ED Shoulder Pain, Uncertain Cause Prescriptions: New hydrocodone-acetaminophen 5-325 mg tablet 1 tab PO Q4H PRN PRN (Reason: Pain) 2 Days Qty: 10 0RF No Action albuterol sulfate 1 INHALER inhaler 2 puff inhalation Q6H PRN (Reason: COPD) atorvastatin 40 mg tablet 40 mg PO QHS omeprazole 40 mg capsule,delayed release(DR/EC) 40 mg PO DAILY ziprasidone HCl 80 mg capsule 80 mg PO QHS sertraline 50 mg tablet 75 mg PO DAILY carvedilol 6.25 mg Tablet 6.25 mg PO BID 30 Days Qty: 60 2RF fluticasone propion-salmeterol 100-50 mcg/dose blister with device 1 ea INHALATION BID potassium chloride 20 mEq Tablet,Er Particles/Crystals 20 meq PO BIDCM Qty: 60 0RF furosemide 40 mg tablet 40 mg PO DAILY Qty: 60 3RF ziprasidone HCl 60 mg capsule 60 mg PO DAILY losartan 100 mg tablet 100 mg PO DAILY carvedilol 12.5 mg Tablet 12.5 mg PO BIDCM 30 Days Qty: 60 2RF ipratropium-albuterol 0.5 mg-3 mg(2.5 mg base)/3 mL Solution For Nebulization 3 ml inhalation Q6HWA.RT PRN (Reason: sob) 30 Days Qty: 90 0RF hydralazine 50 mg Tablet 50 mg PO TID 30 Days Qty: 90 0RF oseltamivir 30 mg Capsule 30 mg PO BID Qty: 5 0RF prednisone 20 mg tablet 40 mg PO DAILY 5 Days Qty: 10 0RF hydroxyzine pamoate 100 mg capsule 50 mg PO BID 3 Days Qty: 0 0RF Primary Care Provider: Susy Funez Referrals: [place] MD [Med Staff - Active Staff] - 3-5 Days Susy Funez MD [Primary Care Provider] - Print Language: Korean Disposition Disposition: Home, Self Care
--- NOTE | 2024-09-11 12:00 | RAD_ITS ---
PROCEDURE: SHOULDER MIN 2 VIEWS 09/11/2024 REASON FOR EXAM: PAIN Atraumatic pain. TECHNIQUE: Four views of the right shoulder COMPARISON: No prior FINDINGS: Bones: No fracture. Joints: Mild degree of joint space narrowing of the glenohumeral joint. Soft tissues: Soft tissues are unremarkable. Other: RAD/Shoulder min 2 Views IMPRESSION: NO ACUTE FRACTURE OR DISLOCATION. Reading Location: [facility]
[2024-09-11 12:22] VITALS: BP 130/61; PULSE 85; RESP 15; TEMP 36.6; O2SAT 99
== END 2024-09-11 12:44 | disposition home or self-care (01) ==
PROVIDERS: Emergency Provider Emergency Medicine; PCP Internal Medicine; Visit Provider Emergency Medicine
DX: M25.511 Pain in right shoulder (principal); F31.9 Bipolar disorder, unspecified; J44.9 Chronic obstructive pulmonary disease, unspecified; I10 Essential (primary) hypertension; I25.2 Old myocardial infarction; F41.9 Anxiety disorder, unspecified; Z86.73 Personal history of transient ischemic attack (TIA), and cerebral infarction without residual deficits; Z79.899 Other long term (current) drug therapy; Z87.891 Personal history of nicotine dependence
CPT/HCPCS: 73030; 99283

== ENCOUNTER 2024-10-30 07:48 | Inpatient (IN) | payer MEDICARE, MEDICAID, SELFPAY ==
[2024-10-30] VITALS (52 sets, daily range): BP systolic 70–195; BP diastolic 15–171; PULSE 74–135; RESP 12–36; TEMP 35.2–38; O2SAT 83–100; BMI 30.2; BMI 35.3
--- NOTE | 2024-10-30 08:21 | EKG12_ITS ---
Test Reason : sob Blood Pressure : */* mmHG Vent. Rate : 100 BPM Atrial Rate : 100 BPM P-R Int : 158 ms QRS Dur : 102 ms QT Int : 334 ms P-R-T Axes : 39 -16 84 degrees QTcB Int : 430 ms Normal sinus rhythm Cannot rule out Septal infarct , age undetermined Abnormal ECG Nonspecific ST wave changes Confirmed by Josh Burton ([id number]), greeting card editor MARYBETH GALICIA ([id number]) on 10/31/2024 6:53:10 AM Referred By: Justen Confirmed By: Josh Burton
--- NOTE | 2024-10-30 08:21 | RAD_ITS ---
PROCEDURE: CHEST PA AND LATERAL 10/30/2024 REASON FOR EXAM: SHORTNESS OF BREATH TECHNIQUE: AP upright and lateral views of the chest. COMPARISON: PA and lateral chest x-ray of 06/22/2024 RAD/Chest PA and Lateral IMPRESSION: A large right mid to lower lung infiltrate is seen, involving at least the righ t lower and upper lobes. This is concerning for the presence of extensive PNEUMONITIS. On the left side, no evidence of pulmonary edema is seen. No pleural effusion or pneumothorax is evident. The cardiomediastinal silhouette is stable, without evidence of cardiomegaly. No acute osseous change is seen. Reading Location: [address]
[2024-10-30 08:23] LABS: Bedside Glucose 266 mg/dL (74-106)
--- NOTE | 2024-10-30 08:26 | ED.VIS.DYS ---
HPI History of Present Illness Chief Complaint: Shortness of Breath Narrative Narrative: Chief complaint and HPI: Shortness of breath. 54-year-old female with past medical history of HTN, HLD, Takotsubo's cardiomyopathy presents for evaluation of shortness of breath. Patient states she woke up this morning with shortness of breath. Associated symptom nausea and vomiting. Patient states that she had an upset stomach yesterday but asymptomatic otherwise. On EMS arrival, patient was 82% on room air and cyanotic. She denies any fever, chills, URI symptoms, cough, chest pain, abdominal pain, diarrhea, constipation, dark or bloody stools, dysuria. Review of systems: See HPI Medications: As listed on the chart Allergies: As listed on the chart PFSH: Per chart Vital signs: As listed on the chart. Reviewed. Physical exam: Gen: Fatigued but Ox3 Head: Normocephalic, atraumatic Eyes: No sclera icterus, conjunctiva clear, PERRL ENT: Dry mucous membranes Neck: Trachea midline, No JVD CV: RRR, no murmurs, no peripheral edema Resp: Lungs diminished, few expiratory wheezing, on 4 L nasal cannula GI: Abd soft, non-distended, non-tender, no r/r/g Rectal: Normal external examination. No evidence of hemorrhoids or fissures. Normal tone and sensation. No masses, fluctuance, or tenderness. No pain out of proportion. + Brown stool on gloved finger Musc: Moves all extremities with generalized weakness, no deformity Skin: Pale, cool Neuro: Grossly intact, sensation intact Psych: Cooperative [facility] Medical History Shock Elevated troponin Transaminitis Non-ST elevation [place] (NSTEMI) Pneumonia Takotsubo cardiomyopathy Bipolar disorder Anxiety Depression Osteoarthritis Kidney stones Hx of gastroesophageal reflux (GERD) Smoker BiPAP (biphasic positive airway pressure) dependence Asthma Myocardial infarct Chest pain Stroke/cerebrovascular accident Migraines Seizures Ulcerative colitis Hypertension COPD (chronic obstructive pulmonary disease) Home Medications ?Medication ?Instructions ?Recorded ?Last Taken ?Type albuterol sulfate 90 mcg/actuation 2 puff inhalation Q6H PRN COPD 02/02/19 01/09/24 History aerosol inhaler atorvastatin 40 mg tablet 40 mg PO QHS cholesterol 11/07/23 06/21/24 History omeprazole 40 mg capsule,delayed 40 mg PO DAILY GERD 11/07/23 06/21/24 History release sertraline 50 mg tablet 75 mg PO DAILY Mood 11/07/23 06/21/24 History ziprasidone HCl 80 mg capsule 80 mg PO QHS antipsychotic 11/07/23 06/21/24 History carvedilol 6.25 mg tablet 6.25 mg PO BID blood pressure 30 11/10/23 06/21/24 Rx days #60 tabs fluticasone 100 mcg-salmeterol 50 1 ea inhalation BID allergies 01/10/24 06/21/24 History mcg/dose blistr powdr for inhalation furosemide 40 mg tablet 40 mg PO DAILY edema #60 tabs 05/26/24 06/21/24 Rx Held on 06/25/24. Instructions: Hold for 1 week advised BMP with PCP before resumption potassium chloride 20 mEq 20 meq PO BIDCM supplement #60 tabs 05/26/24 06/21/24 Rx tablet,extended release(part/cryst) Held on 06/25/24. Instructions: Hold it while Lasix is on hold losartan 100 mg tablet 100 mg PO DAILY bp 06/22/24 06/22/24 History ziprasidone HCl 60 mg capsule 60 mg PO DAILY bipolar 06/22/24 06/21/24 History carvedilol 12.5 mg tablet 12.5 mg PO BIDCM 30 days #60 tabs 06/25/24 Unknown Rx hydralazine 50 mg tablet 50 mg PO TID 30 days #90 tabs 06/25/24 Unknown Rx hydroxyzine pamoate 100 mg capsule 50 mg (1/2 x 100 mg) PO BID 06/25/24 06/21/24 Rx Anxiety 3 days #0 caps ipratropium 0.5 mg-albuterol 3 mg 3 ml inhalation Q6HWA.RT PRN sob 1 06/25/24 Unknown Rx (2.5 mg base)/3 mL nebulization month #90 mL soln oseltamivir 30 mg capsule 30 mg PO BID #5 caps 06/25/24 Unknown Rx prednisone 20 mg tablet 40 mg (2 x 20 mg) PO DAILY 5 days 06/25/24 Unknown Rx #10 tabs hydrocodone-acetaminophen 5-325mg 1 tab PO Q4H PRN PRN Pain 2 days 09/11/24 Unknown Rx 5mg-325mg #10 TABLETS Allergy/AdvReac Type Severity Reaction Status Date / Time meperidine (From Demerol) Allergy Other Verified 10/30/24 07:49 metronidazole (From Flagyl) Allergy Hives Verified 10/30/24 07:49 oxycodone (From Percocet) Allergy Hives Verified 10/30/24 07:49 Penicillins Allergy Hives Verified 10/30/24 07:49 aspirin AdvReac Vomiting Verified 10/30/24 07:49 Family History Mother Myocardial infarction Cancer Brother Myocardial infarction Surgical History History of left heart catheterization (~10/2023) Hx of hysterectomy History of appendectomy Social History Smoking Status: Former smoker how long ago did patient quit smoking: Quit 2 weeks ago per patient report on 01/12/2024 alcohol intake: never substance use type: does not use caffeine: Yes (occasionally) EXAM Physical Exam Const Vital Signs: 10/30/24 07:49 10/30/24 08:07 10/30/24 08:08 Temperature 95.4 F L Temperature Source Temporal Pulse Rate 94 Respiratory Rate 36 H Respiratory Effort Labored Short of Breath Respiratory Depth Shallow Respiratory Pattern Tachypnea Tachypnea Blood Pressure 99/85 H Blood Pressure Mean 89 Pulse Ox 83 Oxygen Delivery Method Nasal Cannula Oxygen Flow Rate (L/min) 4 Fraction of Inspired Oxygen (FIO2) 10/30/24 08:30 10/30/24 08:30 10/30/24 08:36 Temperature 97.5 F L Temperature Source Oral Pulse Rate 82 78 82 Respiratory Rate 22 H 16 13 Respiratory Effort Respiratory Depth Respiratory Pattern Tachypnea Blood Pressure 111/66 111/66 Blood Pressure Mean 81 81 Pulse Ox Oxygen Delivery Method Oxygen Flow Rate (L/min) Fraction of Inspired Oxygen (FIO2) 10/30/24 08:37 10/30/24 09:30 10/30/24 10:00 Temperature Temperature Source Pulse Rate 76 79 Respiratory Rate 14 14 Respiratory Effort Respiratory Depth Respiratory Pattern Blood Pressure 96/71 96/50 L Blood Pressure Mean 80 65 Pulse Ox 93 97 95 Oxygen Delivery Method Nasal Cannula Oxygen Flow Rate (L/min) 4 Fraction of Inspired Oxygen (FIO2) 10/30/24 10:30 10/30/24 10:31 10/30/24 11:00 Temperature 97.5 F L 97.6 F L Temperature Source Oral Oral Pulse Rate 74 75 83 Respiratory Rate 13 16 12 Respiratory Effort Respiratory Depth Respiratory Pattern Blood Pressure 100/67 100/67 104/70 Blood Pressure Mean 79 78 81 Pulse Ox 97 97 95 Oxygen Delivery Method Nasal Cannula Nasal Cannula Oxygen Flow Rate (L/min) 3 3 Fraction of Inspired Oxygen (FIO2) 10/30/24 11:30 10/30/24 11:41 10/30/24 11:45 Temperature Temperature Source Pulse Rate 77 Respiratory Rate 19 H 27 H 20 H Respiratory Effort Respiratory Depth Respiratory Pattern Blood Pressure 144/128 H 157/147 H Blood Pressure Mean 134 152 Pulse Ox 96 86 95 Oxygen Delivery Method Nasal Cannula Oxygen Flow Rate (L/min) 3 Fraction of Inspired Oxygen (FIO2) 10/30/24 11:50 10/30/24 11:51 10/30/24 12:00 Temperature Temperature Source Pulse Rate 130 H 131 H 120 H Respiratory Rate 34 H 34 H 19 H Respiratory Effort Respiratory Depth Respiratory Pattern Tachypnea Tachypnea Blood Pressure 195/171 H Blood Pressure Mean 180 Pulse Ox 94 97 Oxygen Delivery Method Oxygen Flow Rate (L/min) Fraction of Inspired Oxygen (FIO2) 95 10/30/24 12:15 10/30/24 12:30 10/30/24 12:33 Temperature Temperature Source Pulse Rate 134 H 131 H 131 H Respiratory Rate 27 H 23 H 25 H Respiratory Effort Respiratory Depth Respiratory Pattern Blood Pressure 76/63 L Blood Pressure Mean 69 Pulse Ox 96 96 96 Oxygen Delivery Method Oxygen Flow Rate (L/min) Fraction of Inspired Oxygen (FIO2) 10/30/24 12:45 10/30/24 12:45 10/30/24 12:48 Temperature Temperature Source Pulse Rate 129 H 135 H Respiratory Rate 23 H 20 H Respiratory Effort Respiratory Depth Respiratory Pattern Blood Pressure 70/15 L 80/62 L 130/116 H Blood Pressure Mean 33 69 123 Pulse Ox 98 100 Oxygen Delivery Method Oxygen Flow Rate (L/min) Fraction of Inspired Oxygen (FIO2) 10/30/24 12:56 10/30/24 13:00 10/30/24 13:01 Temperature Temperature Source Pulse Rate 125 H 118 H Respiratory Rate 17 14 Respiratory Effort Respiratory Depth Respiratory Pattern Blood Pressure 130/72 H 110/80 Blood Pressure Mean 89 90 Pulse Ox 84 92 Oxygen Delivery Method Oxygen Flow Rate (L/min) Fraction of Inspired Oxygen (FIO2) 100 10/30/24 13:05 10/30/24 13:06 10/30/24 13:10 Temperature Temperature Source Pulse Rate 127 H 125 H 121 H Respiratory Rate 16 18 20 H Respiratory Effort Respiratory Depth Respiratory Pattern Blood Pressure 161/121 H 167/122 H 172/112 H Blood Pressure Mean 133 137 131 Pulse Ox 87 87 90 Oxygen Delivery Method Oxygen Flow Rate (L/min) Fraction of Inspired Oxygen (FIO2) 10/30/24 13:15 10/30/24 13:20 10/30/24 13:22 Temperature 98.2 F Temperature Source Axillary Pulse Rate 117 H 119 H 122 H Respiratory Rate 20 H 20 H 20 H Respiratory Effort Respiratory Depth Respiratory Pattern Blood Pressure 168/105 H 172/81 H 172/81 H Blood Pressure Mean 125 108 111 Pulse Ox 91 93 93 Oxygen Delivery Method Mechanical Ventilator Oxygen Flow Rate (L/min) Fraction of Inspired Oxygen (FIO2) 10/30/24 13:25 10/30/24 13:30 10/30/24 13:31 Temperature Temperature Source Pulse Rate 122 H 123 H 123 H Respiratory Rate 20 H 20 H 20 H Respiratory Effort Respiratory Depth Respiratory Pattern Blood Pressure 187/110 H 160/68 H Blood Pressure Mean 134 89 Pulse Ox 93 93 93 Oxygen Delivery Method Oxygen Flow Rate (L/min) Fraction of Inspired Oxygen (FIO2) MDM MDM MDM Narrative Medical decision making narrative: 54-year-old female with past medical history of HTN, HLD, Takotsubo cardiomyopathy presents for evaluation of shortness of breath. On EMS arrival, patient was 82% on room air and cyanotic. She states she has as needed oxygen at home but only uses it when needed. She was not using it. On presentation, patient is fatigued and pale. She denies any bloody bowel movements. Associated symptom is nausea and vomiting. Differential diagnosis includes but is not limited to COPD exacerbation, viral illness, pneumonia, ACS, PE, electrolyte abnormality, dehydration, RUFINA, anemia, arrhythmia, GI bleed, CHF. NS bolus, DuoNeb, Solu-Medrol ordered. Laboratory workup ordered including chest x-ray. EKG reviewed see below. Patient's original vitals showed blood pressure of 99/85, tachypnea of 36, and a temperature of 95.4 ?F. Repeat vitals after I saw the patient shows temperature of 97.5 ?F, blood pressure of 111/66. Tachypnea resolved on 4 L nasal cannula. Warm blankets applied. VBG without hypercapnia. CBC with leukocytosis of 15.6. No anemia. Platelet count unremarkable. D-dimer 5.07. Lactic acid 7.2. Patient made a sepsis alert. 30 cc/kg bolus ordered. Patient has hives to penicillin therefore broad-spectrum antibiotics with cefepime and vancomycin were ordered. Will get ABG. CTA chest ordered to assess for PE. Given significant lactic acidosis despite patient not having any abdominal pain we will get CT abdomen and pelvis to assess for intra-abdominal pathology. Patient currently doing well on nasal cannula. Patient's care was delayed multiple times due to lab issues. The lab issues also delayed her imaging. There was multiple phone calls made between lab and nursing. I called the lab personally myself as well. ABG shows pH of 7.393 without hypercapnia. Chest x-ray was personally reviewed interpreted by me, ED physician. Patient has right lung infiltrate, concern for pneumonia. Patient already received antibiotics. Per radiology findings are concerning for the presence of extensive pneumonitis. UA negative for UTI. CMP with low carbon dioxide at 17.6. Patient has baseline renal insufficiency with creatinine of 1.33. No transaminitis. BNP elevated at 1878. Troponin 70. Patient not having any chest pain. Suspect type II demand. Coagulation panel unremarkable. Surely after arriving back from imaging, patient's respiratory status worsened. She became acutely dyspneic with increased work of breathing and worsening hypoxia. Patient placed on BiPAP with DuoNeb. CODE STATUS was discussed with the patient and she is full code. Will obtain repeat ABG. Despite BiPAP, patient did not have any improvement in her respiratory status. Patient continues to have increased work of breathing with tripoding. Dyspneic. Tiring. Intubation was discussed with the patient and she consented. She states that she would like her boyfriend to make medical decisions for her when she is unable. Patient was subsequently intubated. During intubation patient had copious secretions with pulmonary edema. She was suctioned multiple times down the ETT. Patient needing high PEEP to obtain oxygen saturations. Patient placed on ARDS protocol with increased PEEP and lower tidal volume. CTA chest negative for PE. Airspace disease in the right hemithorax superimposed on increased interstitial markings especially in the right lung with small right pleural effusions and minimal fluid in the right major fissure. May represent atypical pulmonary edema versus pneumonic infiltration superimposed on mild degree of CHF or possible scarring. CT abdomen pelvis shows inflammatory changes in the left hemicolon. Inflammatory bowel disease should be ruled out. Diffuse pancreatic atrophy. Questionable tiny gallstone in the neck of the gallbladder. Airspace disease in the right lower lobe. Repeat chest x-ray again shows pneumonia with correct OG and ETT placement. Patient will warrant admission to the MICU. Patient discussed with the hospitalist who accepted admission. Shortly after patient was admitted, her ABG after intubation shows a pH of 7.073 and a PCO2 of 61.1. Will increase patient's tidal volume. Will give 2 A of bicarb. Will repeat ABG in approximately 30 minutes. I spoke with the hospitalist service about the ABG and my changes. Recommendations were that they agree with the plan and no need for bicarb drip at this time. Patient was taken to the MICU. Repeat ABG resulted as patient was being transferred upstairs. pH 7.268, PCO2 of 50.4. PO2 100. EKG: Interpreted by me/EM physician: EKG shows normal sinus rhythm without any acute ischemic changes. Heart rate 100. Endotracheal Intubation Indication: Respiratory distress Consent: [Risks, benefits, and alternatives discussed with patient and consent obtained Procedure: The patient was on a gis geographer including continuous pulse oximetry. Rapid Sequence Intubation was conducted. The patient received 20 mg of Etomidate for induction and 80 mg of Rocuronium for adequate paralysis. Cricoid pressure was maintained from the time the induction agent was given to the time of cuff balloon inflation. Using a glide laryngoscope and a size 7.5 endotracheal tube with stylet, the patient was intubated on the first attempt. The stylet was removed, and the cuff balloon was inflated. Appropriate endotracheal tube position was confirmed by direct visualization of vocal cord passage, fogging of the tube, CO2 colorimetric indicator and symmetric breath sounds. The tube was secured at 23 cm at the lips. After tube was secured. Patient began having copious secretions/pulmonary edema through the ET tube. Suctioned multiple times. 60 minutes of critical care time utilized in managing the patient. This is due to high probability of and deterioration of the patient based on the patient's condition and excludes any separately billable procedures. Impression: 1. Acute hypoxic respiratory failure requiring intubation 2. Sepsis secondary to pneumonia 3. Pulmonary edema 4. Lactic acidosis 5. Elevated troponin, suspect type II demand 6. Elevated BNP, concern for heart failure 7. Chronic renal insufficiency Lab Data Labs: Laboratory Results - last 24 hr 10/30/24 10/30/24 10/30/24 08:00 08:05 08:45 WBC 15.6 H RBC 5.22 Hgb 15.0 Hct 48.3 H MCV 92.5 MCH 28.7 MCHC 31.1 L RDW Std Deviation 51.7 H RDW Coeff of Joseph 15.2 H Plt Count 331 MPV 10.8 Immature Gran % (Auto) 1.600 H Neut % (Auto) 46.8 L Lymph % (Auto) 44.4 H Reeves % (Auto) 3.6 Eos % (Auto) 3.0 Baso % (Auto) 0.6 Absolute Neuts (auto) 7.3 Absolute Lymphs (auto) 6.94 H Nucleated RBC % 0 Differential Comment COMMENT PT 13.5 INR 1.0 APTT 24.7 D-Dimer Quant (PE/DVT) 5.07 H* Sodium Cancelled Potassium Cancelled Chloride Cancelled Carbon Dioxide Cancelled Anion Gap Cancelled BUN Cancelled Creatinine Cancelled Estim Creat Clear Calc Cancelled Est GFR (MDRD) Non-Af Cancelled BUN/Creatinine Ratio Cancelled Glucose Cancelled Lactic Acid 7.2 H* Calcium Cancelled Total Bilirubin Cancelled AST Cancelled ALT Cancelled Alkaline Phosphatase Cancelled Troponin T High Sens Cancelled Troponin T Hi Sens 2 Hr NT pro BNP II Cancelled Total Protein Cancelled Albumin Cancelled Globulin Cancelled Albumin/Globulin Ratio Cancelled Urine Color Urine Clarity Urine pH Ur Specific [place] Urine Protein Urine Glucose (UA) Urine Ketones Urine Occult Blood Urine Nitrite Urine Bilirubin Urine Urobilinogen Ur Leukocyte Esterase Urine RBC Urine WBC Ur Squamous Epith Cells Urine Bacteria Hyaline Casts Fine Granular Casts Coarse Granular Casts WBC Casts Urine Mucus POC Glucose 266 H 10/30/24 10/30/24 10/30/24 09:20 09:32 11:00 WBC RBC Hgb Hct MCV MCH MCHC RDW Std Deviation RDW Coeff of Joseph Plt Count MPV Immature Gran % (Auto) Neut % (Auto) Lymph % (Auto) Reeves % (Auto) Eos % (Auto) Baso % (Auto) Absolute Neuts (auto) Absolute Lymphs (auto) Nucleated RBC % Differential Comment PT 14.3 INR 1.1 APTT 24.3 D-Dimer Quant (PE/DVT) Sodium 140 Potassium 5.1 Chloride 108 Carbon Dioxide 17.6 L Anion Gap 15 BUN 17 Creatinine 1.33 H Estim Creat Clear Calc 48.88 L Est GFR (MDRD) Non-Af 47 L BUN/Creatinine Ratio 12.5 Glucose 122 H Lactic Acid Calcium 8.3 Total Bilirubin 0.19 AST 27 ALT 17 Alkaline Phosphatase 124 H Troponin T High Sens 53 H Troponin T Hi Sens 2 Hr 70 H* NT pro BNP II 1878 H Total Protein 5.7 L Albumin 3.3 L Globulin 2.4 Albumin/Globulin Ratio 1.4 Urine Color Yellow Urine Clarity Clear Urine pH 5.0 Ur Specific [place] 1.030 Urine Protein 100 H Urine Glucose (UA) 50 H Urine Ketones Negative Urine Occult Blood 25 H Urine Nitrite Negative Urine Bilirubin Negative Urine Urobilinogen Normal Ur Leukocyte Esterase Negative Urine RBC 0-5 SEEN Urine WBC 0-5 SEEN Ur Squamous Epith Cells 5-10 SEEN Urine Bacteria 0 SEEN Hyaline Casts 10-25 SEEN Fine Granular Casts 5-10 SEEN Coarse Granular Casts 0-5 SEEN WBC Casts 0-5 SEEN Urine Mucus 0 SEEN POC Glucose ABG Data ABG results: ABG 10/30/24 10/30/24 08:37 10:18 Specimen Type BOOKER ART Sample Site Not entered R Radial pH 7.39 Bicarbonate Actual 17.5 L Total CO2 18 Base Excess -7 L O2 Saturation 94 L O2 % 3.0 ABG pCO2 28.7 L ABG pO2 68 L Lester Test Positive VBG pH 7.21 L VBG pO2 48 H VBG HCO3 13 L VBG Total CO2 14 L VBG O2 Sat (Calc) 75 H VBG Base Excess -15 L POC Mix VBG pCO2 Pt Tmp 33.2 L O2 Delivery Device Not entered Cannula Vent Mode Not entered Radiography Diagnostic Testing: Clinical Impression(s) from Imaging Studies Chest X-Ray 10/30/24 08:21 IMPRESSION: A large right mid to lower lung infiltrate is seen, involving at least the right lower and upper lobes. This is concerning for the presence of extensive PNEUMONITIS. On the left side, no evidence of pulmonary edema is seen. No pleural effusion or pneumothorax is evident. The cardiomediastinal silhouette is stable, without evidence of cardiomegaly. No acute osseous change is seen. Reading Location: [id number] Abdomen/Pelvis CT 10/30/24 09:52 IMPRESSION: Inflammatory changes in the left hemicolon. Inflammatory bowel disease should be ruled out. Diffuse pancreatic atrophy. Questionable tiny gallstone in the neck of the gallbladder. Airspace disease in the right lower lobe. OVERALL FINAL ASSESSMENT: . Reading Location: [facility] Chest CTA 10/30/24 09:52 IMPRESSION: No evidence of pulmonary embolism. Airspace disease in the right hemithorax superimposed on increased interstitial markings especially in the right lung with small right pleural effusion and minimal fluid in the right major fissure. This may represent atypical pulmonary edema versus pneumonic infiltration superimposed on mild degree of CHF or possible scarring. Reading Location: [facility] Chest X-Ray 10/30/24 13:20 IMPRESSION: The apices of the lungs are excluded from view. Nasogastric tube seen, with tip at the mid to distal stomach. Endotracheal tube in place, with tip approximately 3 cm above the med. Interval appearance of left lower lung airspace disease. Findings are suggestive of developing/worsening pulmonary edema. Increased conspicuity of right lung airspace disease, with relative sparing of the upper lung zone. Probable small right pleural effusion, as well. No pneumothorax is seen. The cardiomediastinal silhouette is stable, without evidence of cardiomegaly. Reading Location: [id number] Discharge Plan Disposition Disposition: Acute Care Hospital [facility] Discharge Date/Time: 10/30/24 15:00
[2024-10-30] MEDS: Ipratropium/Albuterol Sulfate 3 ML AMPUL.NEB 9 ML INHALATION (08:29)
[2024-10-30] MEDS: 0.9% Normal Saline (1000mL) 1,000 ML 999 ML IV ×3 (08:34→13:06)
[2024-10-30] MEDS: MethylPREDNISolone 125 MG/2 ML Vial IV (08:34)
[2024-10-30 08:40] LABS: Absolute Lymphocyte Count 6.94 X10^3/uL (0.83-4.51); Absolute Neutrophil Count 7.3 X10^3/uL (2.0-7.7); Basophil# 0.09 X10^3/uL; Basophil% 0.6 % (0-1); Eosinophil# 0.47 X10^3/uL; Hematocrit 48.3 % (37-47); Lymphocyte # 6.94 X10^3/ul (0.83-4.51); Lymphocyte % 44.4 % (19-41); Mean Corp Hgb Conc 31.1 g/dL (32-36); Mean Corpuscular Hgb 28.7 pg (27.0-32.0); Mean Corpuscular Volume 92.5 fL (81-99); Mean Platelet Vol. 10.8 fl (6.2-12.0); Monocyte# 0.56 X10^3/uL; Monocyte% 3.6 % (0-10); NRBC Flagged by Analyzer 0 % (0-5); Neutrophil # 7.31 X10^3/uL (2.7-7.7); Neutrophil % 46.8 % (47-70); POSITIVE DIFFERENTIAL YES; POSITIVE MORPHOLOGY YES; Platelet Count 331 K/mm3 (150-450); RBC Distribution Width CV 15.2 % (11.6-14.6); RBC Distribution Width SD 51.7 fl (35.1-43.9); Red Blood Count 5.22 M/mm3 (4.2-5.4); White Blood Count 15.6 K/mm3 (4.4-11.0)
[2024-10-30 08:40] LABS: Blood Gas Specimen Type VEN; O2 Delivery Device Not entered; SITE Not entered; VBG BASE EXCESS -15 mmol/L (-1.0-3.5); VBG Bicarbonate 13 mmol/L (22-26); VBG PO2 48 mmHg (25-40); VBG SO2 75 % (50-70); VBG TCO2 14 mmol/L (23-33); VBG pCO2 33.2 mmHg (41-51); VBG pH 7.21 (7.32-7.42)
[2024-10-30 08:42] LABS: Differential Indicated SCAN CRITERIA MET
[2024-10-30 08:51] LABS: Prothrombin Time (Protime)PT. 13.5 SECONDS (11.7-14.9)
[2024-10-30 08:52] LABS: Partial Thromboplast Time 24.7 Seconds (24.1-36.2)
[2024-10-30 09:26] LABS: Bacteria 0 SEEN /hpf (None Seen); Mucous, Urine 0 SEEN /hpf (<or=2+)
[2024-10-30 09:38] LABS: Lactic Acid 7.2 mmol/L (0.0-2.0)
[2024-10-30 09:40] LABS: D-Dimer Quantitative (DVT/PE) 5.07 FEU/ug/m (0.27-0.49)
[2024-10-30 09:45] LABS: Color, Urine Yellow (Yellow); Glucose, Dipstick 50 mg/dl (Normal); Ketone-Dipstick Negative (Negative); Leukocyte Esterase-Dipstick Negative /ul (Negative); Nitrite-Dipstick Negative (Negative); Occult Blood-Urine 25 /ul (Negative); Protein-Dipstick 100 mg/dl (Negative); Urine Bilirubin Dipstick Negative (Negative); Urine Clarity Clear (Clear); Urine Urobilinogen Normal (Normal)
--- NOTE | 2024-10-30 09:52 | CT_ITS ---
PROCEDURE: ABDOMEN/PELVIS W IV CONT ONLY 10/30/2024 REASON FOR EXAM: NAUSEA, LACTIC ACIDOSIS TECHNIQUE: Abdomen and pelvis CT with intravenous contrast. Coronal and Sagittal reconstruction series were provided. PATIENT PREPARATION: Per protocol ORAL CONTRAST TYPE: None. CONTRAST: Isovue 370 VOLUME: 100 mL One or more dose reduction techniques were used (e.g., Automated exposure control, adjustment of the mA and/or kV according to patient size, use of iterative reconstruction technique. RADIATION DOSE SUMMARY: CTDlvol: 21 mGy DLP: 6096.11 mGycm COMPARISON: Prior study dated May 29, 2019. FINDINGS: Lung bases: Small right pleural effusion with the airspace disease in the right lower lobe. Liver: Normal size. No mass. Gallbladder: Questionable tiny gallstone in the neck of the gallbladder. Spleen: Normal size. Pancreas: Diffuse fatty atrophy. Adrenals: Unremarkable Kidneys: Normal renal sizes. No hydronephrosis. Bladder: Unremarkable Reproductive Organs: Prior hysterectomy. Adnexal regions are unremarkable. Bowel: Colonic diverticulosis without diverticulitis. There is evidence of mucosal thickening of the left hemicolon. Inflammatory bowel disease should be ruled out. Appendix: Prior appendectomy. Lymph nodes: Unremarkable. Vasculature: Mild diffuse atherosclerotic calcifications are noted. Peritoneum / Retroperitoneum: Unremarkable Bones: Unremarkable CT/Abdomen/Pelvis W IV Cont ONLY IMPRESSION: Inflammatory changes in the left hemicolon. Inflammatory bowel disease should be ruled out. Diffuse pancreatic atrophy. Questionable tiny gallstone in the neck of the gallbladder. Airspace disease in the right lower lobe. OVERALL FINAL ASSESSMENT: . Reading Location: [place] [id number]
--- NOTE | 2024-10-30 09:52 | CT_ITS ---
PROCEDURE: CTA CHEST W/WO CONTRAST 10/30/2024 REASON FOR EXAM: PE Lactic acidosis. TECHNIQUE: CTA axial imaging of the chest with intravenous contrast. Multiplanar and multisequence images were obtained. PATIENT PREPARATION: Per protocol One or more dose reduction techniques were used (e.g., Automated exposure control, adjustment of the mA and/or kV according to patient size, use of iterative reconstruction technique). CONTRAST: Isovue 370 VOLUME: 100 mL RADIATION DOSE SUMMARY: CTDlvol: 17.79 mGy DLP: 673.38 mGycm COMPARISON: Prior chest radiograph done earlier in the day and prior CT scan of the chest dated June 22, 2024. FINDINGS: Hardware: EKG electrodes are seen. Lymph nodes: Small benign-appearing mediastinal lymph nodes as well as bilateral axillary lymph nodes. Heart: The heart is nonenlarged. No significant coronary artery calcification is seen. Thoracic Aorta: Unremarkable Pulmonary Vessels: No pulmonary emboli is seen. Lungs and Airways: There is evidence of airspace disease in the right upper lobe as well as in the right lower lobe. This is superimposed on interstitial changes. This may represent acute infiltration on chronic scarring. There is evidence of bronchiectasis and small blebs in the right lung. Mild degree of superimposed CHF can not be excluded. Pleura: Small right pleural effusion. Upper Abdomen: Prior surgery in the region of the gastroesophageal junction. Bones: Degenerative changes of the thoracic spine. CT/CTA Chest W/WO Contrast IMPRESSION: No evidence of pulmonary embolism. Airspace disease in the right hemithorax superimposed on increased interstitial markings especially in the right lung with small right pleural effusion and minimal fluid in the right major fissure. This may represent atypical pulmonary edema versus pneumonic infiltration superimposed on mild degree of CHF or possible scarring. Reading Location: [facility]
[2024-10-30 10:03] LABS: Coarse Granular Cast 0-5 SEEN /lpf (0-5 /lpf); Fine Granular Cast- Urine 5-10 SEEN /lpf (0-5); Hyaline Cast 10-25 SEEN /lpf (0-5); Red Blood Cells-Urine 0-5 SEEN /hpf (0-5); Squamous Epithelial Cells - UA 5-10 SEEN /hpf (5-10); White Blood Cells 0-5 SEEN /hpf (0-5)
[2024-10-30 10:04] LABS: White Cell Cast 0-5 SEEN /lpf (None Seen)
[2024-10-30 10:23] LABS: Allen Test Positive; Base Excess -7 mmol/L (-2 to +2); Bicarbonate 17.5 mmol/L (22-26); Blood Gas Specimen Type ART; Mode Not entered; O2 Delivery Device Cannula; PO2 68 mmHG (75-100); SITE R Radial; SO2 94 % (95-99); Total Carbon Dioxide 18 mmol/L; pCO2 28.7 mmHg (35-45); pH 7.39 (7.35-7.45)
[2024-10-30] MEDS: Cefepime HCl 2 GM in 0.9% Normal Saline (100mL MB+) 100 ML IV (10:30)
[2024-10-30 11:03] LABS: ALB/GLOB Ratio 1.4 RATIO (0.9-2.4); AST(SGOT) 27 U/L (<=31); Alanine Aminotransfer ALT/SGPT 17 U/L (<=34); Albumin, Serum 3.3 g/dL (3.5-5.0); Alkaline Phosphatase 124 U/L (35-104); Anion Gap 15 (5-15); BUN 17 mg/dL (4-19); BUN/Creat Ratio 12.5 RATIO (10-20); Calcium,Total 8.3 mg/dL (7.6-11.0); Carbon Dioxide 17.6 mmol/L (21.0-32.0); Chloride 108 mmol/L (98-108); Creatinine, Serum 1.33 mg/dL (0.70-1.20); EST Glomerular Filtration Rate 47 (>60); Estimated Creatinine Clearance 48.88 ml/min (50-250); Globulin 2.4 g/dL (2.2-4.2); Glucose 122 mg/dL (70-99); Potassium 5.1 mmol/L (3.3-5.1); Protein, Total 5.7 g/dL (5.9-8.4); Sodium Level 140 mmol/L (133-145); Total Bilirubin 0.19 mg/dL (0.00-1.30)
[2024-10-30 11:05] LABS: Pro- Brain NATRIURETIC PEPTIDE 1878 pg/mL (<=900); Troponin T High Sensitivity 53 ng/L (<=14)
[2024-10-30] MEDS: Vancomycin HCl 2,000 MG in 0.9% Normal Saline (500mL Bag) 500 ML 250 MG IV (11:13)
[2024-10-30 11:18] LABS: International Normalized Ratio 1.1; Partial Thromboplast Time 24.3 Seconds (24.1-36.2); Prothrombin Time (Protime)PT. 14.3 SECONDS (11.7-14.9)
[2024-10-30 11:42] LABS: Troponin T High Sens 2 HR 70 ng/L (<=14)
[2024-10-30] MEDS: Ipratropium/Albuterol Sulfate 3 ML AMPUL.NEB INHALATION ×2 (11:49)
[2024-10-30 12:51] LABS: Reflex Lactate? Y
[2024-10-30] MEDS: Etomidate 20 MG/10 ML Vial IV (12:52)
[2024-10-30] MEDS: Succinylcholine Chloride 200 MG/10 ML Vial 80 MG IV (13:05)
[2024-10-30] MEDS: Propofol 10MG/Ml 1,000 MG/100 ML Bottle 4.8 MG CONT INF (13:07)
--- NOTE | 2024-10-30 13:07 | ED.RN ---
[id number]- PER PT REQUEST THIS RN CONTACTED HER SIGNIFICANT OTHER LISTED PRIMARY CONTACT. HE IS NOTIFIED OF PATIENT'S DETERIORATING CONDITION REQUIRING VENTILATION
--- NOTE | 2024-10-30 13:20 | RAD_ITS ---
PROCEDURE: CHEST 1 VIEW (PORTABLE) 10/30/2024 REASON FOR EXAM: INTUBATION TECHNIQUE: Limited view of the lower chest and upper abdomen for feeding tube placement.. COMPARISON: PA and lateral chest x-ray of 10/30/2024. RAD/Chest 1 View (Portable) IMPRESSION: The apices of the lungs are excluded from view. Nasogastric tube seen, with tip at the mid to distal stomach. Endotracheal tub e in place, with tip approximately 3 cm above the med. Interval appearance of left lower lung airspace disease. Findings are suggestive of developing/worsening pulmonary edema. Increased conspicuity of right lung airspace disease, with relative sparing of the upper lung zone. Probable small right pleural effusion, as well. No pneumothorax is seen. The cardiomediastinal silhouette is stable, without evidence of cardiomegaly. Reading Location: [address]
--- NOTE | 2024-10-30 13:22 | PCM.HP.STD ---
HPI - General General Date of Admission: 10/30/24 Date of Service: 10/30/24 Chief Complaint: Worsening shortness of breath HPI Narrative RAYMON HAAS, is a 54 F who presented to [facility] ED on 10/30/2024 with worsening shortness of breath. Patient has history of COPD with chronic respiratory failure on 2 to 3 L nasal cannula at home. She was last hospitalized here in June for worse hypoxia in setting of influenza A infection. She recovered within few days and was discharged home without issue. Today she woke up feeling short of breath and had associated nausea and vomiting so she came in for further evaluation. She was found to be 82% on her home amount of oxygen. She reported a mild upset stomach yesterday but otherwise was feeling well apparently. In the ED she was placed on 4 L nasal cannula initially with improvement in tachypnea. Labs were notable for lactate 7.2, WBC count 15, D-dimer 5.0. CTA chest showed no PE but did show significant bilateral opacities called by radiology to be bilateral pneumonia versus extensive pneumonitis. Patient's respiratory status deteriorated and she was placed on BiPAP but unfortunately did not improve much. ED physician discussed intubation with her and she consented, and she was intubated without issue. Hospitalist was then contacted for admission. I saw the patient at bedside in the ED, no family present. Patient was intubated and sedated and not following commands. Will be admitted to the ICU for further management. [facility] Medical History Shock Elevated troponin Transaminitis Non-ST elevation [place] (NSTEMI) Pneumonia Takotsubo cardiomyopathy Bipolar disorder Anxiety Depression Osteoarthritis Kidney stones Hx of gastroesophageal reflux (GERD) Smoker BiPAP (biphasic positive airway pressure) dependence Asthma Myocardial infarct Chest pain Stroke/cerebrovascular accident Migraines Seizures Ulcerative colitis Hypertension COPD (chronic obstructive pulmonary disease) Home Medications ?Medication ?Instructions ?Recorded ?Last Taken ?Type albuterol sulfate 90 mcg/actuation 2 puff inhalation Q6H PRN COPD 02/02/19 01/09/24 History aerosol inhaler atorvastatin 40 mg tablet 40 mg PO QHS cholesterol 11/07/23 06/21/24 History omeprazole 40 mg capsule,delayed 40 mg PO DAILY GERD 11/07/23 06/21/24 History release sertraline 50 mg tablet 75 mg PO DAILY Mood 11/07/23 06/21/24 History ziprasidone HCl 80 mg capsule 80 mg PO QHS antipsychotic 11/07/23 06/21/24 History carvedilol 6.25 mg tablet 6.25 mg PO BID blood pressure 30 11/10/23 06/21/24 Rx days #60 tabs fluticasone 100 mcg-salmeterol 50 1 ea inhalation BID allergies 01/10/24 06/21/24 History mcg/dose blistr powdr for inhalation furosemide 40 mg tablet 40 mg PO DAILY edema #60 tabs 05/26/24 06/21/24 Rx Held on 06/25/24. Instructions: Hold for 1 week advised BMP with PCP before resumption potassium chloride 20 mEq 20 meq PO BIDCM supplement #60 tabs 05/26/24 06/21/24 Rx tablet,extended release(part/cryst) Held on 06/25/24. Instructions: Hold it while Lasix is on hold losartan 100 mg tablet 100 mg PO DAILY bp 06/22/24 06/22/24 History ziprasidone HCl 60 mg capsule 60 mg PO DAILY bipolar 06/22/24 06/21/24 History carvedilol 12.5 mg tablet 12.5 mg PO BIDCM 30 days #60 tabs 06/25/24 Unknown Rx hydralazine 50 mg tablet 50 mg PO TID 30 days #90 tabs 06/25/24 Unknown Rx hydroxyzine pamoate 100 mg capsule 50 mg (1/2 x 100 mg) PO BID 06/25/24 06/21/24 Rx Anxiety 3 days #0 caps ipratropium 0.5 mg-albuterol 3 mg 3 ml inhalation Q6HWA.RT PRN sob 1 06/25/24 Unknown Rx (2.5 mg base)/3 mL nebulization month #90 mL soln oseltamivir 30 mg capsule 30 mg PO BID #5 caps 06/25/24 Unknown Rx prednisone 20 mg tablet 40 mg (2 x 20 mg) PO DAILY 5 days 06/25/24 Unknown Rx #10 tabs hydrocodone-acetaminophen 5-325mg 1 tab PO Q4H PRN PRN Pain 2 days 09/11/24 Unknown Rx 5mg-325mg #10 TABLETS Allergy/AdvReac Type Severity Reaction Status Date / Time meperidine (From Demerol) Allergy Other Verified 10/30/24 07:49 metronidazole (From Flagyl) Allergy Hives Verified 10/30/24 07:49 oxycodone (From Percocet) Allergy Hives Verified 10/30/24 07:49 Penicillins Allergy Hives Verified 10/30/24 07:49 aspirin AdvReac Vomiting Verified 10/30/24 07:49 Family History Mother Myocardial infarction Cancer Brother Myocardial infarction Surgical History History of left heart catheterization (~10/2023) Hx of hysterectomy History of appendectomy Social History Smoking Status: Former smoker how long ago did patient quit smoking: Quit 2 weeks ago per patient report on 01/12/2024 alcohol intake: never substance use type: does not use caffeine: Yes (occasionally) ROS Review of Systems ROS Unobtainable: due to endotracheal tube Vital Signs Vital Signs Vital Signs: 10/30/24 07:49 10/30/24 08:07 10/30/24 08:08 Temperature 95.4 F L Temperature Source Temporal Pulse Rate 94 Respiratory Rate 36 H Respiratory Effort Labored Short of Breath Respiratory Depth Shallow Respiratory Pattern Tachypnea Tachypnea Blood Pressure 99/85 H Blood Pressure Mean 89 Pulse Ox 83 Oxygen Delivery Method Nasal Cannula Oxygen Flow Rate (L/min) 4 Fraction of Inspired Oxygen (FIO2) 10/30/24 08:30 10/30/24 08:30 10/30/24 08:36 Temperature 97.5 F L Temperature Source Oral Pulse Rate 82 78 82 Respiratory Rate 22 H 16 13 Respiratory Effort Respiratory Depth Respiratory Pattern Tachypnea Blood Pressure 111/66 111/66 Blood Pressure Mean 81 81 Pulse Ox Oxygen Delivery Method Oxygen Flow Rate (L/min) Fraction of Inspired Oxygen (FIO2) 10/30/24 08:37 10/30/24 09:30 10/30/24 10:00 Temperature Temperature Source Pulse Rate 76 79 Respiratory Rate 14 14 Respiratory Effort Respiratory Depth Respiratory Pattern Blood Pressure 96/71 96/50 L Blood Pressure Mean 80 65 Pulse Ox 93 97 95 Oxygen Delivery Method Nasal Cannula Oxygen Flow Rate (L/min) 4 Fraction of Inspired Oxygen (FIO2) 10/30/24 10:30 10/30/24 10:31 10/30/24 11:00 Temperature 97.5 F L 97.6 F L Temperature Source Oral Oral Pulse Rate 74 75 83 Respiratory Rate 13 16 12 Respiratory Effort Respiratory Depth Respiratory Pattern Blood Pressure 100/67 100/67 104/70 Blood Pressure Mean 79 78 81 Pulse Ox 97 97 95 Oxygen Delivery Method Nasal Cannula Nasal Cannula Oxygen Flow Rate (L/min) 3 3 Fraction of Inspired Oxygen (FIO2) 10/30/24 11:30 10/30/24 11:41 10/30/24 11:45 Temperature Temperature Source Pulse Rate 77 Respiratory Rate 19 H 27 H 20 H Respiratory Effort Respiratory Depth Respiratory Pattern Blood Pressure 144/128 H 157/147 H Blood Pressure Mean 134 152 Pulse Ox 96 86 95 Oxygen Delivery Method Nasal Cannula Oxygen Flow Rate (L/min) 3 Fraction of Inspired Oxygen (FIO2) 10/30/24 11:50 10/30/24 11:51 10/30/24 12:00 Temperature Temperature Source Pulse Rate 130 H 131 H 120 H Respiratory Rate 34 H 34 H 19 H Respiratory Effort Respiratory Depth Respiratory Pattern Tachypnea Tachypnea Blood Pressure 195/171 H Blood Pressure Mean 180 Pulse Ox 94 97 Oxygen Delivery Method Oxygen Flow Rate (L/min) Fraction of Inspired Oxygen (FIO2) 95 10/30/24 12:15 10/30/24 12:30 10/30/24 12:33 Temperature Temperature Source Pulse Rate 134 H 131 H 131 H Respiratory Rate 27 H 23 H 25 H Respiratory Effort Respiratory Depth Respiratory Pattern Blood Pressure 76/63 L Blood Pressure Mean 69 Pulse Ox 96 96 96 Oxygen Delivery Method Oxygen Flow Rate (L/min) Fraction of Inspired Oxygen (FIO2) 10/30/24 12:45 10/30/24 12:45 10/30/24 12:48 Temperature Temperature Source Pulse Rate 129 H 135 H Respiratory Rate 23 H 20 H Respiratory Effort Respiratory Depth Respiratory Pattern Blood Pressure 70/15 L 80/62 L 130/116 H Blood Pressure Mean 33 69 123 Pulse Ox 98 100 Oxygen Delivery Method Oxygen Flow Rate (L/min) Fraction of Inspired Oxygen (FIO2) 10/30/24 12:56 10/30/24 13:00 10/30/24 13:01 Temperature Temperature Source Pulse Rate 125 H 118 H Respiratory Rate 17 14 Respiratory Effort Respiratory Depth Respiratory Pattern Blood Pressure 130/72 H 110/80 Blood Pressure Mean 89 90 Pulse Ox 84 92 Oxygen Delivery Method Oxygen Flow Rate (L/min) Fraction of Inspired Oxygen (FIO2) 100 10/30/24 13:05 10/30/24 13:06 10/30/24 13:10 Temperature Temperature Source Pulse Rate 127 H 125 H 121 H Respiratory Rate 16 18 20 H Respiratory Effort Respiratory Depth Respiratory Pattern Blood Pressure 161/121 H 167/122 H 172/112 H Blood Pressure Mean 133 137 131 Pulse Ox 87 87 90 Oxygen Delivery Method Oxygen Flow Rate (L/min) Fraction of Inspired Oxygen (FIO2) 10/30/24 13:15 Temperature Temperature Source Pulse Rate 117 H Respiratory Rate 20 H Respiratory Effort Respiratory Depth Respiratory Pattern Blood Pressure 168/105 H Blood Pressure Mean 125 Pulse Ox 91 Oxygen Delivery Method Oxygen Flow Rate (L/min) Fraction of Inspired Oxygen (FIO2) Weight Weight: 79.9 kg Body Mass Index (BMI) 30.2 Physical Exam Const Constitutional Narrative: Intubated and sedated, not following commands. Pale appearing. Class I obesity. HEENT normocephalic and head/scalp atraumatic HEENT Narrative: ET tube in place. Neck supple Resp normal respiratory effort Resp Narrative: Moderate diminished breath sounds bilaterally with significant crackles noted throughout. Cardio Negative for no murmurs Cardio Narrative: Tachycardic, regular rhythm. GI normal to inspection, nondistended, normoactive bowel sounds, soft to palpation and non-distended Extremity normal to inspection Results Lab / Micro Data 10/30/24 08:00 10/30/24 09:32 Labs: Laboratory Results - last 24 hr 10/30/24 08:00: WBC 15.6 H, RBC 5.22, Hgb 15.0, Hct 48.3 H, MCV 92.5, MCH 28.7, MCHC 31.1 L, RDW Std Deviation 51.7 H, RDW Coeff of Joseph 15.2 H, Plt Count 331, MPV 10.8, Immature Gran % (Auto) 1.600 H, Neut % (Auto) 46.8 L, Lymph % (Auto) 44.4 H, [place] % (Auto) 3.6, Eos % (Auto) 3.0, Baso % (Auto) 0.6, Absolute Neuts (auto) 7.3, Absolute Lymphs (auto) 6.94 H, Nucleated RBC % 0, Differential Comment COMMENT, PT 13.5, INR 1.0, APTT 24.7, D-Dimer Quant (PE/DVT) 5.07 H*, Sodium Cancelled, Potassium Cancelled, Chloride Cancelled, Carbon Dioxide Cancelled, Anion Gap Cancelled, BUN Cancelled, Creatinine Cancelled, Estim Creat Clear Calc Cancelled, Est GFR (MDRD) Non-Af Cancelled, BUN/Creatinine Ratio Cancelled, Glucose Cancelled, Calcium Cancelled, Total Bilirubin Cancelled, AST Cancelled, ALT Cancelled, Alkaline Phosphatase Cancelled, Troponin T High Sens Cancelled, NT pro BNP II Cancelled, Total Protein Cancelled, Albumin Cancelled, Globulin Cancelled, Albumin/Globulin Ratio Cancelled 10/30/24 08:05: POC Glucose 266 H 10/30/24 08:45: Lactic Acid 7.2 H* 10/30/24 09:20: Urine Color Yellow, Urine Clarity Clear, Urine pH 5.0, Ur Specific [place] 1.030, Urine Protein 100 H, Urine Glucose (UA) 50 H, Urine Ketones Negative, Urine Occult Blood 25 H, Urine Nitrite Negative, Urine Bilirubin Negative, Urine Urobilinogen Normal, Ur Leukocyte Esterase Negative, Urine RBC 0-5 SEEN, Urine WBC 0-5 SEEN, Ur Squamous Epith Cells 5-10 SEEN, Urine Bacteria 0 SEEN, Hyaline Casts 10-25 SEEN, Fine Granular Casts 5-10 SEEN, Coarse Granular Casts 0-5 SEEN, WBC Casts 0-5 SEEN, Urine Mucus 0 SEEN 10/30/24 09:32: Sodium 140, Potassium 5.1, Chloride 108, Carbon Dioxide 17.6 L, Anion Gap 15, BUN 17, Creatinine 1.33 H, Estim Creat Clear Calc 48.88 L, Est GFR (MDRD) Non-Af 47 L, BUN/Creatinine Ratio 12.5, Glucose 122 H, Calcium 8.3, Total Bilirubin 0.19, AST 27, ALT 17, Alkaline Phosphatase 124 H, Troponin T High Sens 53 H, NT pro BNP II 1878 H, Total Protein 5.7 L, Albumin 3.3 L, Globulin 2.4, Albumin/Globulin Ratio 1.4 10/30/24 11:00: PT 14.3, INR 1.1, APTT 24.3, Troponin T Hi Sens 2 Hr 70 H* Micro: Microbiology 10/30/24 08:30 Mucosa - Nose SARS-CoV-2, Influenza & RSV (PCR) - Final 10/30/24 08:15 Stool Stool Occult Blood (IGNACIO) - Final ABG Data ABG results: ABG 10/30/24 10/30/24 08:37 10:18 Specimen Type BOOKER ART Sample Site Not entered R Radial pH 7.39 Bicarbonate Actual 17.5 L Total CO2 18 Base Excess -7 L O2 Saturation 94 L O2 % 3.0 ABG pCO2 28.7 L ABG pO2 68 L Lester Test Positive VBG pH 7.21 L VBG pO2 48 H VBG HCO3 13 L VBG Total CO2 14 L VBG O2 Sat (Calc) 75 H VBG Base Excess -15 L POC Mix VBG pCO2 Pt Tmp 33.2 L O2 Delivery Device Not entered Cannula Vent Mode Not entered Imaging Radiology Impression Chest X-Ray 10/30/24 08:21 IMPRESSION: A large right mid to lower lung infiltrate is seen, involving at least the right lower and upper lobes. This is concerning for the presence of extensive PNEUMONITIS. On the left side, no evidence of pulmonary edema is seen. No pleural effusion or pneumothorax is evident. The cardiomediastinal silhouette is stable, without evidence of cardiomegaly. No acute osseous change is seen. Reading Location: [address] Abdomen/Pelvis CT 10/30/24 09:52 IMPRESSION: Inflammatory changes in the left hemicolon. Inflammatory bowel disease should be ruled out. Diffuse pancreatic atrophy. Questionable tiny gallstone in the neck of the gallbladder. Airspace disease in the right lower lobe. OVERALL FINAL ASSESSMENT: . Reading Location: [facility] Chest CTA 10/30/24 09:52 IMPRESSION: No evidence of pulmonary embolism. Airspace disease in the right hemithorax superimposed on increased interstitial markings especially in the right lung with small right pleural effusion and minimal fluid in the right major fissure. This may represent atypical pulmonary edema versus pneumonic infiltration superimposed on mild degree of CHF or possible scarring. Reading Location: [facility] Assessment & Plan Assessment/Plan (1) Acute on chronic hypoxic respiratory failure: PLAN: Plan Patient is a 54-year-old female who presented to [facility] ED on 10/30/2024 with worsening shortness of breath. 1. Acute on chronic hypoxic respiratory failure secondary to community-acquired pneumonia versus pneumonitis ? Admit under inpatient status to ICU. Nitroglycerin Distributor consulted. On home 2 to 3 L nasal cannula at rest. Presented with quickly progressive shortness of breath with hypoxia. CTA chest with no PE but did show extensive bilateral infiltrates concerning for pneumonia versus pneumonitis. Respiratory status deteriorated in the ED and she was intubated. COVID/flu/RSV negative. Urine antigens negative. Infectious workup otherwise pending. Will treat with IV antibiotics and IV steroids. Ventilator management and further recommendations per environmental epidemiologist. 2. Elevated troponins with mildly elevated BNP ? Troponin trend 53 > 70 > 125 > 153. BNP 1878. EKG with no ischemic changes noted. Presume secondary to demand ischemia due to above. History of heart failure with recovered EF as below. Will hold on further cardiac workup for now. Chronic medical conditions: ? Class I obesity: BMI 34 on admit. Complicates hospital course, care and prognosis. ? CKD stage IIIa: Creatinine 1.33 on admit, at baseline. ? History of heart failure with recovered ejection fraction, hypertension, hyperlipidemia: Last echo in 12/2023 showed EF 65%, mildly enlarged LA, no other concerning findings noted. Will hold home Coreg, Lasix, hydralazine, losartan and atorvastatin for now, restart as able. ? Anxiety/depression: Continue home sertraline and ziprasidone. ? GERD: Continue home PPI. DVT prophylaxis: Lovenox CODE STATUS: Full code, verified Expected disposition: TBD Total clinical time spent by myself addressing the patient's medical issues, reviewing all the data, and collaborating with patient's care team: 75 minutes. Charges/Coding Visit Charges Inpatient E&M: 40704 Init Hosp L3
[2024-10-30 13:50] LABS: Allen Test Positive; Base Excess -12 mmol/L (-2 to +2); Bicarbonate 17.8 mmol/L (22-26); Blood Gas Specimen Type ART; Mode AC; O2 Delivery Device Adult Vent; PEEP 12; PO2 85 mmHG (75-100); RR 20; SITE L Radial; SO2 91 % (95-99); Time Given 13:47:10; Total Carbon Dioxide 20 mmol/L; pCO2 61.1 mmHg (35-45); pH 7.07 (7.35-7.45)
[2024-10-30] MEDS: Sodium Bicarbonate 8.4% 50 ML Syringe 100 MEQ IV (14:07)
[2024-10-30 14:51] LABS: Allen Test Positive; Base Excess -4 mmol/L (-2 to +2); Blood Gas Specimen Type ART; Mode AC; O2 Delivery Device Adult Vent; PEEP 12; PO2 100 mmHG (75-100); RR 20; SITE L Radial; SO2 97 % (95-99); Total Carbon Dioxide 25 mmol/L; pCO2 50.4 mmHg (35-45); pH 7.27 (7.35-7.45)
[2024-10-30] MEDS: Azithromycin 500 MG in 0.9% Normal Saline (250mL Bag) 250 ML 255 MG IV (16:20)
[2024-10-30] MEDS: Chlorhexidine 15 ML PO ×2 (16:34→21:14)
[2024-10-30 16:35] LABS: CPK Total, Creatine Kinase 100 U/L (24-195); Triglycerides 201 mg/dL
[2024-10-30 16:57] LABS: Troponin T High Sensitivity 125 ng/L (<=14)
[2024-10-30 20:00] LABS: Troponin T High Sens 2 HR 153 ng/L (<=14)
[2024-10-30] MEDS: fentaNYL drip 100 ML 5 MCG CONT INF (20:00)
[2024-10-30] MEDS: Propofol 10MG/Ml 1,000 MG/100 ML Bottle 16.8 MG CONT INF (21:11)
[2024-10-30] MEDS: Heparin Injection (Vial) 5,000 UNIT/ML VIAL 5000 UNIT SC (21:15)
[2024-10-31] VITALS (38 sets, daily range): BP systolic 82–123; BP diastolic 48–63; PULSE 68–86; RESP 15–25; TEMP 37–37.9; O2SAT 91–100; BMI 35.4
[2024-10-31] MEDS: CHLORHEXIDINE GLUC 2% CLOTH 1 EACH TOWELETTE TOPICAL (02:45)
[2024-10-31] MEDS: Propofol 10MG/Ml 1,000 MG/100 ML Bottle 14.4 MG CONT INF (02:55)
[2024-10-31] MEDS: 0.9% Saline Lock 10 ML Syringe IV ×3 (04:20→21:17)
[2024-10-31 04:31] LABS: Hematocrit 39.2 % (37-47); Hemoglobin 12.7 g/dL (12.0-15.0); Mean Corp Hgb Conc 32.4 g/dL (32-36); Mean Corpuscular Hgb 29.3 pg (27.0-32.0); Mean Corpuscular Volume 90.3 fL (81-99); Mean Platelet Vol. 10.6 fl (6.2-12.0); Platelet Count 221 K/mm3 (150-450); RBC Distribution Width CV 15.3 % (11.6-14.6); RBC Distribution Width SD 51.4 fl (35.1-43.9); Red Blood Count 4.34 M/mm3 (4.2-5.4); White Blood Count 13.7 K/mm3 (4.4-11.0)
[2024-10-31 04:49] LABS: Anion Gap 13 (5-15); BUN 26 mg/dL (4-19); BUN/Creat Ratio 15.5 RATIO (10-20); Carbon Dioxide 18.3 mmol/L (21.0-32.0); Chloride 111 mmol/L (98-108); Creatinine, Serum 1.64 mg/dL (0.70-1.20); EST Glomerular Filtration Rate 37 (>60); Estimated Creatinine Clearance 43.04 ml/min (50-250); Glucose 149 mg/dL (70-99); Potassium 5.5 mmol/L (3.3-5.1); Sodium Level 142 mmol/L (133-145)
--- NOTE | 2024-10-31 06:51 | CON.PCM.CC_ITS ---
Assessment & Plan Assessment/Plan (1) Acute on chronic hypoxic respiratory failure: PLAN: Plan RECOMMENDATIONS: 1. Continue assist-control mode mechanical ventilation. Wean FiO2 and PEEP as tolerated. 2. Initiate scheduled bronchodilator therapy. 3. Continue IV steroids. 4. Broaden antimicrobial therapy, as ordered. 5. Okay to initiate tube feeding today from my perspective. 6. Continue appropriate ICU prophylaxis. IMPRESSIONS: 1. Acute on chronic hypoxemic respiratory failure Clinical concern for underlying COPD with exacerbation secondary to pneumonia. The patient was ultimately intubated in the emergency department. Plan to continue supportive care with scheduled bronchodilators, IV steroids and broad- spectrum antimicrobials, pending infectious workup. FiO2 and PEEP will be weaned as tolerated. Will obtain follow-up ABG this morning. It should be noted that the patient has a self-reported history of COPD with questionable outpatient compliance with medical therapy. She was supposed to follow-up in our office back in March 2024 to establish care, but failed to do so. In addition, she has a reported history of sleep apnea. Therefore, upon extubation, it would be reasonable to resume BiPAP therapy with naps and nightly. 2. Sepsis The patient presented with sepsis due to probable pneumonia with acute sepsis related organ dysfunction as evidenced by lactic acidemia and acute respiratory failure requiring invasive mechanical ventilatory support. The patient remains hemodynamically stable, without the need for vasopressor support. Continue empiric antimicrobials, pending infectious workup. 3. Troponin elevation Most likely secondary to demand ischemia in the setting of presenting hypoxemia. Continue supportive measures as noted above. 4. Chronic kidney disease/obesity/obstructive sleep apnea/history of Takotsubo cardiomyopathy/anxiety/depression Complicates care, management, recovery and prognosis. Continue supportive measures as noted above. Okay to initiate tube feeding today from my perspective. TIME: 37 minutes of critical care time, independent of procedures, was spent addressing the patient's acute on chronic hypoxemic respiratory failure, sepsis, troponin elevation, review of all data and collaboration with the care team. HPI Consult Data Date of Consult: 10/31/24 HPI Narrative Reason for Consultation: Respiratory failure HPI Narrative: The patient is a 54-year-old female, with a history as outlined below, who presented to the emergency department on October 30 with complaints of worsening dyspnea. The patient has a suspected history of COPD along with chronic hypoxemic respiratory failure with a baseline requirement of 2 to 3 L/min. The patient was last admitted to the hospital in June 2024 with a COPD exacerbation and respiratory failure related to influenza A. During prior hospitalizations, the patient reported to me that she was previously under the care of a marketing intelligence analyst in [place], but was interested in transferring her care here. However, upon discharge from a prior hospitalization, the patient was scheduled to follow-up in our office in March 2024, but subsequently no showed that appointment. She was previously prescribed Advair along with as needed albuterol. In addition, she reported a history of sleep apnea for which she is noncompliant with nocturnal PAP therapy. She does have a known history of Takotsubo cardiomyopathy and was maintained on a diuretic regimen by cardiology in the past. On presentation to the emergency department, the patient was documented to have a temperature of 95.4 ?F. Her hemodynamics were borderline. The patient was documented to be tachypneic and saturating 83% on 4 L/min. Laboratory evaluation was notable for a white blood cell count of 16,000. Hemoglobin and platelet count were stable. Coagulation profile was unremarkable. D-dimer was elevated at 5.07. Chemistry profile was notable for a creatinine of 1.3. Lactate was elevated at 7.2. Troponin was increased at 70 with a BNP of 1878. Urine analysis was unremarkable. CTA chest showed no evidence for pulmonary embolism, but did reveal scattered airspace disease throughout the right hemithorax. According to documentation, shortly after arriving back to the emergency department after chest imaging studies, the patient became more dyspneic with increased work of breathing. Although BiPAP was attempted, the patient's respiratory status continued to decompensate, ultimately requiring intubation. The patient was subsequently placed on antimicrobials and steroids. [facility] Medical History Shock Elevated troponin Transaminitis Non-ST elevation AL (NSTEMI) Pneumonia Takotsubo cardiomyopathy Bipolar disorder Anxiety Depression Osteoarthritis Kidney stones Hx of gastroesophageal reflux (GERD) Smoker BiPAP (biphasic positive airway pressure) dependence Asthma Myocardial infarct Chest pain Stroke/cerebrovascular accident Migraines Seizures Ulcerative colitis Hypertension COPD (chronic obstructive pulmonary disease) Home Medications ?Medication ?Instructions ?Recorded ?Last Taken ?Type albuterol sulfate 90 mcg/actuation 2 puff inhalation Q 6H PRN COPD 02/02/19 01/09/24 History aerosol inhaler atorvastatin 40 mg tablet 40 mg PO QHS cholesterol 06/21/24 History omeprazole 40 mg capsule,delayed 40 mg PO DAILY GERD 0 11/07/23 06/21/24 History release sertraline 50 mg tablet 75 mg PO DAILY Mood 11/07/23 06/21/24 History ziprasidone HCl 80 mg capsule 80 mg PO QHS antipsychot ic 11/07/23 06/21/24 History carvedilol 6.25 mg tablet 6.25 mg PO BID blood pressur e 30 11/10/23 06/21/24 Rx days #60 tabs fluticasone 100 mcg-salmeterol 50 1 ea inhalation BID allergies 01/10/24 06/21/24 History mcg/dose blistr powdr for inhalation furosemide 40 mg tablet 40 mg PO DAILY edema #60 tab s 05/26/24 06/21/24 Rx Held on 06/25/24. Instructions: Hold for 1 week advised BMP with PCP before resumption potassium chloride 20 mEq 20 meq PO BIDCM supplement # 60 tabs 05/26/24 06/21/24 Rx tablet,extended release(part/cryst) Held on 06/25/24. Instructions: Hold it while Lasix is on hold losartan 100 mg tablet 100 mg PO DAILY bp 06/22/24 06/22/24 History ziprasidone HCl 60 mg capsule 60 mg PO DAILY bipolar 0 06/22/24 06/21/24 History carvedilol 12.5 mg tablet 12.5 mg PO BIDCM 30 days #60 tabs 06/25/24 Unknown Rx hydralazine 50 mg tablet 50 mg PO TID 30 days #90 tab s 06/25/24 Unknown Rx hydroxyzine pamoate 100 mg capsule 50 mg (1/2 x 100 mg ) PO BID 06/25/24 06/21/24 Rx Anxiety 3 days #0 caps ipratropium 0.5 mg-albuterol 3 mg 3 ml inhalation Q6HW A.RT PRN sob 1 06/25/24 Unknown Rx (2.5 mg base)/3 mL nebulization month #90 mL soln oseltamivir 30 mg capsule 30 mg PO BID #5 caps 5 Unknown Rx prednisone 20 mg tablet 40 mg (2 x 20 mg) PO DAILY 5 days 06/25/24 Unknown Rx #10 tabs hydrocodone-acetaminophen 5-325mg 1 tab PO Q4H PRN PRN Pain 2 days 09/11/24 Unknown Rx 5mg-325mg #10 TABLETS Allergy/AdvReac Type Severity Reaction Status Date / Time meperidine (From Demerol) Allergy Other Verified 10/30/24 07:49 metronidazole (From Flagyl) Allergy Hives Verified 10/30/24 07:49 oxycodone (From Percocet) Allergy Hives Verified 10/30/24 07:49 Penicillins Allergy Hives Verified 10/30/24 07:49 aspirin AdvReac Vomiting Verified 10/30/24 07:49 Family History Mother Myocardial infarction Cancer Brother Myocardial infarction Surgical History History of left heart catheterization (~10/2023) Hx of hysterectomy History of appendectomy Social History Smoking Status: Former smoker how long ago did patient quit smoking: Quit 2 weeks ago per patient report on 01/12/2024 alcohol intake: never substance use type: does not use caffeine: Yes (occasionally) ROS Review of Systems ROS Unobtainable: due to endotracheal tube Physical Exam Const Constitutional Narrative: Intubated, sedated and mechanically ventilated. No ventilator dyssynchrony. HEENT normocephalic and head/scalp atraumatic Mouth: endotracheal tube in place and OG tube in place Eyes PERRL, EOMs intact bilaterally and conjunctivae normal Neck supple General: trachea midline Chest inspection of chest normal Resp Auscultation: rales and diminished lung sounds Cardio regular rate and regular rhythm GI normal to inspection, nondistended, normoactive bowel sounds Extremity no clubbing, cyanosis or edema Skin no rashes or lesions noted Neuro Sensorium / Orientation: sedated on vent Lab / Micro Data 10/31/24 04:25 10/31/24 04:25 Labs: Laboratory Results - last 24 hr 10/30/24 08:00: WBC 15.6 H, RBC 5.22, Hgb 15.0, Hct 48.3 H, MCV 92.5, MCH 28.7, MCHC 31.1 L, RDW Std Deviation 51.7 H, RDW Coeff of Joseph 15.2 H, Plt Count 331, MPV 10.8, Immature Gran % (Auto) 1.600 H, Neut % (Auto) 46.8 L, Lymph % (Auto) 44.4 H, [place] % (Auto) 3.6, Eos % (Auto) 3.0, Baso % (Auto) 0.6, Absolute Neuts (auto) 7.3, Absolute Lymphs (auto) 6.94 H, Nucleated RBC % 0, Differential Comment COMMENT, PT 13.5, INR 1.0, APTT 24.7, D-Dimer Quant (PE/DVT) 5.07 H*, Sodium Cancelled, Potassium Cancelled, Chloride Cancelled, Carbon Dioxide Cancelled, Anion Gap Cancelled, BUN Cancelled, Creatinine Cancelled, Estim Creat Clear Calc Cancelled, Est GFR (MDRD) Non-Af Cancelled, BUN/Creatinine Ratio Cancelled, Glucose Cancelled, Calcium Cancelled, Total Bilirubin Cancelled, AST Cancelled, ALT Cancelled, Alkaline Phosphatase Cancelled, Troponin T High Sens Cancelled, NT pro BNP II Cancelled, Total Protein Cancelled, Albumin Cancelled, Globulin Cancelled, Albumin/Globulin Ratio Cancelled 10/30/24 08:05: POC Glucose 266 H 10/30/24 08:45: Lactic Acid 7.2 H* 10/30/24 09:20: Urine Color Yellow, Urine Clarity Clear, Urine pH 5.0, Ur Specific [place] 1.030, Urine Protein 100 H, Urine Glucose (UA) 50 H, Urine Ketones Negative, Urine Occult Blood 25 H, Urine Nitrite Negative, Urine Bilirubin Negative, Urine Urobilinogen Normal, Ur Leukocyte Esterase Negative, Urine RBC 0-5 SEEN, Urine WBC 0-5 SEEN, Ur Squamous Epith Cells 5-10 SEEN, Urine Bacteria 0 SEEN, Hyaline Casts 10-25 SEEN, Fine Granular Casts 5-10 SEEN, Coarse Granular Casts 0-5 SEEN, WBC Casts 0-5 SEEN, Urine Mucus 0 SEEN 10/30/24 09:32: Sodium 140, Potassium 5.1, Chloride 108, Carbon Dioxide 17.6 L, Anion Gap 15, BUN 17, Creatinine 1.33 H, Estim Creat Clear Calc 48.88 L, Est GFR (MDRD) Non-Af 47 L, BUN/Creatinine Ratio 12.5, Glucose 122 H, Calcium 8.3, Total Bilirubin 0.19, AST 27, ALT 17, Alkaline Phosphatase 124 H, Troponin T High Sens 53 H, NT pro BNP II 1878 H, Total Protein 5.7 L, Albumin 3.3 L, Globulin 2.4, Albumin/Globulin Ratio 1.4 10/30/24 11:00: PT 14.3, INR 1.1, APTT 24.3, Troponin T Hi Sens 2 Hr 70 H* 10/30/24 14:45: Lactic Acid 3.0 H* 10/30/24 15:52: Total Creatine Kinase 100, Troponin T High Sens 125 H* D, T riglycerides 201 H 10/30/24 18:45: Troponin T Hi Sens 2 Hr 153 H* 10/31/24 04:25: WBC 13.7 H, RBC 4.34, Hgb 12.7, Hct 39.2, MCV 90.3, MCH 29.3, MCHC 32.4, RDW Std Deviation 51.4 H, RDW Coeff of Joseph 15.3 H, Plt Count 221, MPV 10.6, Sodium 142, Potassium 5.5 H, Chloride 111 H, Carbon Dioxide 18.3 L, Anion Gap 13, BUN 26 H, Creatinine 1.64 H, Estim Creat Clear Calc 43.04 L, Est GFR (MDRD) Non-Af 37 L, BUN/Creatinine Ratio 15.5, Glucose 149 H, Calcium 8.0 Micro: Microbiology 10/30/24 15:42 Mucosa - Nasopharyngeal Respiratory Panel (PCR) - Final 10/30/24 Unknown Urine Catheter - Lazo Legionella Antigen - Final 10/30/24 Unknown Urine Catheter - Lazo Streptococcus pneumoniae Antigen (M - Final 10/30/24 08:30 Mucosa - Nose SARS-CoV-2, Influenza & RSV (PCR) - Final 10/30/24 08:15 Stool Stool Occult Blood (IGNACIO) - Final ABG Data ABG results: ABG 10/30/24 10/30/24 10/30/24 08:37 10:18 13:45 Specimen Type BOOKER ART ART Sample Site Not entered R Radial L Radial pH 7.39 7.07 L* Bicarbonate Actual 17.5 L 17.8 L Total CO2 18 20 Base Excess -7 L -12 L O2 Saturation 94 L 91 L O2 % 3.0 100.0 ABG pCO2 28.7 L 61.1 H ABG pO2 68 L 85 Lester Test Positive Positive VBG pH 7.21 L VBG pO2 48 H VBG HCO3 13 L VBG Total CO2 14 L VBG O2 Sat (Calc) 75 H VBG Base Excess -15 L POC Mix VBG pCO2 Pt Tmp 33.2 L Respiration Rate 20 O2 Delivery Device Not entered Cannula Adult Vent Vent Mode Not entered AC Tidal Volume 350.0 POC PEEP 12 Crit Call To/Read Back Yes Blood Gas Notified Whom andrews Blood Gas Notified Time 13:47:10 10/30/24 14:47 Specimen Type ART Sample Site L Radial pH 7.27 L Bicarbonate Actual 23.0 Total CO2 25 Base Excess -4 L O2 Saturation 97 O2 % 100.0 ABG pCO2 50.4 H ABG pO2 100 Lester Test Positive VBG pH VBG pO2 VBG HCO3 VBG Total CO2 VBG O2 Sat (Calc) VBG Base Excess POC Mix VBG pCO2 Pt Tmp Respiration Rate 20 O2 Delivery Device Adult Vent Vent Mode AC Tidal Volume 400.0 POC PEEP 12 Crit Call To/Read Back Blood Gas Notified Whom Blood Gas Notified Time Imaging Radiology Impression Chest X-Ray 10/30/24 08:21 IMPRESSION: A large right mid to lower lung infiltrate is seen, involving at least the right lower and upper lobes. This is concerning for the presence of extensive PNEUMONITIS. On the left side, no evidence of pulmonary edema is seen. No pleural effusion or pneumothorax is evident. The cardiomediastinal silhouette is stable, without evidence of cardiomegaly. No acute osseous change is seen. Reading Location: [id number] Abdomen/Pelvis CT 10/30/24 09:52 IMPRESSION: Inflammatory changes in the left hemicolon. Inflammatory bowel disease should be ruled out. Diffuse pancreatic atrophy. Questionable tiny gallstone in the neck of the gallbladder. Airspace disease in the right lower lobe. OVERALL FINAL ASSESSMENT: . Reading Location: [facility] Chest CTA 10/30/24 09:52 IMPRESSION: No evidence of pulmonary embolism. Airspace disease in the right hemithorax superimposed on increased interstitial markings especially in the right lung with small right pleural effusion and minimal fluid in the right major fissure. This may represent atypical pulmonary edema versus pneumonic infiltration superimposed on mild degree of CHF or possible scarring. Reading Location: [facility]--1 Chest X-Ray 10/30/24 13:20 IMPRESSION: The apices of the lungs are excluded from view. Nasogastric tube seen, with tip at the mid to distal stomach. Endotracheal tube in place, with tip approximately 3 cm above the med. Interval appearance of left lower lung airspace disease. Findings are suggestive of developing/worsening pulmonary edema. Increased conspicuity of right lung airspace disease, with relative sparing of the upper lung zone. Probable small right pleural effusion, as well. No pneumothorax is seen. The cardiomediastinal silhouette is stable, without evidence of cardiomegaly. Reading Location: [id number] Charges/Coding Procedures Hospitalists Procedures: [id number] Critical Care 1st Hr
[2024-10-31 08:49] LABS: Base Excess -6 mmol/L (-2 to +2); Bicarbonate 19.1 mmol/L (22-26); Blood Gas Specimen Type ART; Mode AC; O2 Delivery Device Adult Vent; PEEP 5; PO2 128 mmHG (75-100); RR 20; SITE R Radial; SO2 99 % (95-99); Total Carbon Dioxide 20 mmol/L; pCO2 30.3 mmHg (35-45); pH 7.41 (7.35-7.45)
[2024-10-31] MEDS: Chlorhexidine 15 ML PO ×2 (09:44→21:12)
[2024-10-31] MEDS: Sertraline 50 MG Tablet 75 MG PO (09:45)
[2024-10-31] MEDS: Heparin Injection (Vial) 5,000 UNIT/ML VIAL 5000 UNIT SC ×2 (09:45→21:12)
[2024-10-31] MEDS: Meropenem 1 GM in 0.9% Normal Saline (100mL MB+) 100 ML IV ×2 (09:56→21:12)
[2024-10-31] MEDS: Propofol 10MG/Ml 1,000 MG/100 ML Bottle 14.1 MG CONT INF ×3 (09:56→23:20)
--- NOTE | 2024-10-31 10:37 | PCM.RX.CS ---
Consult Antibiotic Management Pharmacy has been consulted to manage selected antibiotic: Vancomycin Type of Intervention Type of Consult: New start Suspected Infection Suspected Infection: Pneumonia Prior Doses of Antibiotics Prior Doses of Antibiotics Received/Current Regimen: 10/30/24 @ 1113 Vancomycin 200mg x1 Labs Labs: Sodium 142 mmol/L (133-145) 10/31/24 04:25 Potassium 5.5 mmol/L (3.3-5.1) H 10/31/24 04:25 Chloride 111 mmol/L (98-108) H 10/31/24 04:25 Carbon Dioxide 18.3 mmol/L (21.0-32.0) L 10/31/24 04:25 Anion Gap 13 (5-15) 10/31/24 04:25 BUN 26 mg/dL (4-19) H 10/31/24 04:25 Creatinine 1.64 mg/dL (0.70-1.20) H 10/31/24 04:25 Est GFR (MDRD) Non-Af 37 (>60) L 10/31/24 04:25 BUN/Creatinine Ratio 15.5 RATIO (10-20) 10/31/24 04:25 Glucose 149 mg/dL (70-99) H 10/31/24 04:25 Microbiology Microbiology: Microbiology 10/30/24 15:42 Mucosa - Nasopharyngeal Respiratory Panel (PCR) - Final 10/30/24 Unknown Urine Catheter - Lazo Legionella Antigen - Final 10/30/24 Unknown Urine Catheter - Lazo Streptococcus pneumoniae Antigen (M - Final 10/30/24 08:30 Mucosa - Nose SARS-CoV-2, Influenza & RSV (PCR) - Final 10/30/24 08:15 Stool Stool Occult Blood (IGNACIO) - Final Dosing Weight Weight used for dosin kg Estimated Creatinine Clearance Estimated Creatinine Clearance: 43 Goal Trough Goal Trough: 15-20 mcg/mL Pharmacy Plan for Drug Dosing Pharmacy Plan for Drug Dosing: Vancomycin 750mg every 12 hours Pharmacy Service will continue to monitor and adjust dosing as required. Follow-Up Labs Follow-Up Labs: Trough: Vancomycin Date/Time Labs Ordered Labs to be done on [date and time ordered]: 11/01/24 @ 2200
[2024-10-31] MEDS: Ipratropium/Albuterol Sulfate 3 ML AMPUL.NEB INHALATION ×4 (10:59→22:42)
--- NOTE | 2024-10-31 11:09 | PN.HOSP_ITS ---
Reason for Visit Reason for Visit: Diagnoses Acute and chronic respiratory failure with hypoxia (10/30/24) Subjective Subjective Saw patient at bedside this morning. Patient remains sedated and intubated. She did arouse to verbal command but was not purposely following commands. Objective Data Objective Data Vital Signs: Vital Signs Temp Pulse Resp BP Pulse Ox O2 Del Method O2 Flow Rate 99.6 F H 74 16 95/53 L 91 Mechanical Ventilator 3 10/31/24 10:00 10/31/24 11:02 10/31/24 11:02 10/31/24 10:00 10/31/24 11:02 10/31/24 10:00 10/30/24 11:30 FiO2 40 10/31/24 11:02 Oxygen Flow Rate (L/min) 3 Oxygen Delivery Method Mechanical Ventilator Weight: 94.3 kg Body Mass Index (BMI) 35.4 Intake & Output: Intake and Output for Last 24 Hours 10/29/24 10/30/24 10/31/24 23:59 23:59 23:59 Intake Total 4038.48 / 4047.08 200.67 / 200.67 Output Total 200 / 475 500 / 500 Balance 3838.48 / 3572.08 -299.33 / -299.33 Lab / Micro Data 10/31/24 04:25 10/31/24 04:25 Labs: Laboratory Results - last 24 hr 10/30/24 11:00: PT 14.3, INR 1.1, APTT 24.3, Troponin T Hi Sens 2 Hr 70 H* 10/30/24 14:45: Lactic Acid 3.0 H* 10/30/24 15:52: Total Creatine Kinase 100, Troponin T High Sens 125 H* D, T riglycerides 201 H 10/30/24 18:45: Troponin T Hi Sens 2 Hr 153 H* 10/31/24 04:25: WBC 13.7 H, RBC 4.34, Hgb 12.7, Hct 39.2, MCV 90.3, MCH 29.3, MCHC 32.4, RDW Std Deviation 51.4 H, RDW Coeff of Joseph 15.3 H, Plt Count 221, MPV 10.6, Sodium 142, Potassium 5.5 H, Chloride 111 H, Carbon Dioxide 18.3 L, Anion Gap 13, BUN 26 H, Creatinine 1.64 H, Estim Creat Clear Calc 43.04 L, Est GFR (MDRD) Non-Af 37 L, BUN/Creatinine Ratio 15.5, Glucose 149 H, Calcium 8.0 Micro: Microbiology 10/30/24 15:42 Mucosa - Nasopharyngeal Respiratory Panel (PCR) - Final 10/30/24 Unknown Urine Catheter - Lazo Legionella Antigen - Final 10/30/24 Unknown Urine Catheter - Lazo Streptococcus pneumoniae Antigen (M - Final 10/30/24 08:30 Mucosa - Nose SARS-CoV-2, Influenza & RSV (PCR) - Final 10/30/24 08:15 Stool Stool Occult Blood (IGNACIO) - Final ABG Data ABG results: ABG 10/30/24 10/30/24 10/31/24 13:45 14:47 08:45 Specimen Type ART ART ART Sample Site L Radial L Radial R Radial pH 7.07 L* 7.27 L 7.41 Bicarbonate Actual 17.8 L 23.0 19.1 L Total CO2 20 25 20 Base Excess -12 L -4 L -6 L O2 Saturation 91 L 97 99 O2 % 100.0 100.0 45.0 ABG pCO2 61.1 H 50.4 H 30.3 L ABG pO2 85 100 128 H Lester Test Positive Positive N/A Respiration Rate 20 20 20 O2 Delivery Device Adult Vent Adult Vent Adult Vent Vent Mode AC AC AC Tidal Volume 350.0 400.0 400.0 POC PEEP 12 12 5 Crit Call To/Read Back Yes Blood Gas Notified Whom andrews Blood Gas Notified Time 13:47:10 Radiography Diagnostic Testing: Radiology Impression Abdomen/Pelvis CT 10/30/24 09:52 IMPRESSION: Inflammatory changes in the left hemicolon. Inflammatory bowel disease should be ruled out. Diffuse pancreatic atrophy. Questionable tiny gallstone in the neck of the gallbladder. Airspace disease in the right lower lobe. OVERALL FINAL ASSESSMENT: . [facility] 10/30/24 09:52 IMPRESSION: No evidence of pulmonary embolism. Airspace disease in the right hemithorax superimposed on increased interstitial markings especially in the right lung with small right pleural effusion and minimal fluid in the right major fissure. This may represent atypical pulmonary edema versus pneumonic infiltration superimposed on mild degree of CHF or possible scarring. Reading Location: [facility] Chest X-Ray 10/30/24 13:20 IMPRESSION: The apices of the lungs are excluded from view. Nasogastric tube seen, with tip at the mid to distal stomach. Endotracheal tube in place, with tip approximately 3 cm above the med. Interval appearance of left lower lung airspace disease. Findings are suggestive of developing/worsening pulmonary edema. Increased conspicuity of right lung airspace disease, with relative sparing of the upper lung zone. Probable small right pleural effusion, as well. No pneumothorax is seen. The cardiomediastinal silhouette is stable, without evidence of cardiomegaly. Reading Location: [address] Physical Exam Const Constitutional Narrative: Intubated and sedated, arousing to verbal command but not following commands. Class I obesity. HEENT normocephalic and head/scalp atraumatic HEENT Narrative: ET tube in place. Neck supple Resp normal respiratory effort Resp Narrative: Tolerating ventilator without issue, moderate diminished breath sounds bilaterally with significant crackles noted throughout. Stable. Cardio regular rate and regular rhythm; Negative for no murmurs GI normal to inspection, nondistended, normoactive bowel sounds, soft to palpation and non-distended Extremity normal to inspection Assessment & Plan Assessment/Plan (1) Acute on chronic hypoxic respiratory failure: PLAN: Plan Patient is a 54-year-old female who presented to [facility] ED on 10/30/2024 with worsening shortness of breath. 1. Acute on chronic hypoxic respiratory failure secondary to community-acquired pneumonia versus pneumonitis ? [employer]or Redevelopment Manager following. On home 2 to 3 L nasal cannula at rest. Presented with quickly progressive shortness of breath with hypoxia. CTA chest with no PE but did show extensive bilateral infiltrates concerning for pneumonia versus pneumonitis. Respiratory status deteriorated in the ED and she was intubated. COVID/flu/RSV negative. Urine antigens negative. Infectious workup otherwise pending. Continue treatment with IV antibiotics and IV steroids. Ventilator management and further recommendations per vertical punch operator. 2. Elevated troponins with mildly elevated BNP ? Troponin trend 53 > 70 > 125 > 153. BNP 1878. EKG with no ischemic changes noted. Presume secondary to demand ischemia due to above. History of heart failure with recovered EF as below. Will hold on further cardiac workup at this time. 3. Mild creatinine elevation in setting of CKD stage IIIa with mild hyperkalemia ? Creatinine 1.33 on admit, at baseline. Slightly worsened to 1.6 on hospital day 2 and potassium worsened to 5.5. No changes in treatment at this time but will need to monitor BMP daily and urine output closely as patient is at risk for developing RUFINA secondary to ATN in setting of acute respiratory failure as above. Holding home Lasix and losartan as noted below. Chronic medical conditions: ? Class I obesity: BMI 34 on admit. Complicates hospital course, care and prognosis. ? History of heart failure with recovered ejection fraction, hypertension, hyperlipidemia: Last echo in 12/2023 showed EF 65%, mildly enlarged LA, no other concerning findings noted. Continue to hold home Coreg, Lasix, hydralazine, losartan and atorvastatin. ? Anxiety/depression: Continue home sertraline and ziprasidone. ? GERD: Continue home PPI. DVT prophylaxis: Heparin subcu CODE STATUS: Full code, verified Expected disposition: TBD Total clinical time spent by myself addressing the patient's medical issues, reviewing all the data, and collaborating with patient's care team: 35 minutes. Charges/Coding Visit Charges Inpatient E&M: 52961 Subs Hosp L2
[2024-10-31] MEDS: Vital High Protein 1,000 ML 20 ML GT (11:43)
[2024-10-31] MEDS: fentaNYL drip 100 ML 5 MCG CONT INF (13:55)
[2024-10-31] MEDS: Vancomycin HCl 750 MG in 0.9% Normal Saline (250mL Bag) 250 ML 250 MG IV (14:24)
--- NOTE | 2024-10-31 15:20 | CASEMGMT ---
HENRY CM to pt room at this time for initial assessment. Pt is currently on the mechanical ventilator and there is no family @ bedside. Assessment deferred for now. CM to follow.
[2024-11-01] VITALS (38 sets, daily range): BP systolic 95–186; BP diastolic 47–99; PULSE 16–110; RESP 10–19; TEMP 36.7–37.8; O2SAT 91–99; BMI 36.0
[2024-11-01] MEDS: Ipratropium/Albuterol Sulfate 3 ML AMPUL.NEB INHALATION ×5 (02:14→19:05)
[2024-11-01] MEDS: Vancomycin HCl 750 MG in 0.9% Normal Saline (250mL Bag) 250 ML 250 MG IV ×2 (02:27→14:30)
[2024-11-01] MEDS: Propofol 10MG/Ml 1,000 MG/100 ML Bottle 14.1 MG CONT INF (05:00)
[2024-11-01] MEDS: 0.9% Saline Lock 10 ML Syringe IV (05:00)
[2024-11-01 05:10] LABS: Hematocrit 34.1 % (37-47); Hemoglobin 11.2 g/dL (12.0-15.0); Mean Corp Hgb Conc 32.8 g/dL (32-36); Mean Corpuscular Hgb 29.2 pg (27.0-32.0); Mean Corpuscular Volume 88.8 fL (81-99); Mean Platelet Vol. 10.9 fl (6.2-12.0); Platelet Count 194 K/mm3 (150-450); RBC Distribution Width CV 15.8 % (11.6-14.6); RBC Distribution Width SD 51.6 fl (35.1-43.9); Red Blood Count 3.84 M/mm3 (4.2-5.4); White Blood Count 13.5 K/mm3 (4.4-11.0)
[2024-11-01 05:48] LABS: Anion Gap 11 (5-15); BUN 41 mg/dL (4-19); BUN/Creat Ratio 32.1 RATIO (10-20); Calcium,Total 8.1 mg/dL (7.6-11.0); Carbon Dioxide 18.8 mmol/L (21.0-32.0); Chloride 109 mmol/L (98-108); Creatinine, Serum 1.26 mg/dL (0.70-1.20); EST Glomerular Filtration Rate 50 (>60); Estimated Creatinine Clearance 56.62 ml/min (50-250); Glucose 201 mg/dL (70-99); Potassium 4.5 mmol/L (3.3-5.1); Sodium Level 139 mmol/L (133-145)
--- NOTE | 2024-11-01 08:18 | PN.CC_ITS ---
Assessment & Plan Assessment/Plan (1) Acute on chronic hypoxic respiratory failure: PLAN: Plan RECOMMENDATIONS: 1. Proceed with a trial of extubation this morning. 2. Once extubated, wean supplemental oxygen to maintain saturations at or above 90%. 3. Continue scheduled bronchodilator therapy and IV steroids. 4. Continue empiric broad-spectrum antimicrobials, pending culture results. 5. Swallow evaluation with dietary advancement as tolerated. 6. Continue appropriate DVT prophylaxis. 7. Encourage incentive spirometer use and mobilize patient as tolerated. IMPRESSIONS: 1. Acute on chronic hypoxemic respiratory failure Clinical concern for underlying COPD with exacerbation secondary to pneumonia. The patient was ultimately intubated in the emergency department. Plan to continue supportive care with scheduled bronchodilators, IV steroids and broad- spectrum antimicrobials, pending infectious workup. With supportive care, the patient's respiratory status has improved. She passed a spontaneous breathing trial this morning will therefore be extubated. Once extubated, wean supplemental oxygen to maintain saturations at or above 90%. Encourage incentive spirometer use and mobilize patient as tolerated. The patient does have a reported history of sleep apnea. Therefore, upon extubation, it would be reasonable to resume BiPAP therapy with naps and nightly. 2. Sepsis The patient presented with sepsis due to probable pneumonia with acute sepsis related organ dysfunction as evidenced by lactic acidemia and acute respiratory failure requiring invasive mechanical ventilatory support. The patient remains hemodynamically stable, without the need for vasopressor support. Continue empiric antimicrobials, pending infectious workup. 3. Troponin elevation Most likely secondary to demand ischemia in the setting of presenting hypoxemia. Continue supportive measures as noted above. 4. Chronic kidney disease/obesity/obstructive sleep apnea/history of Takotsubo cardiomyopathy/anxiety/depression Complicates care, management, recovery and prognosis. PT/OT to work with the patient. TIME: 34 minutes of critical care time, independent of procedures, was spent addressing the patient's acute on chronic hypoxemic respiratory failure, sepsis, troponin elevation, review of all data and collaboration with the care team. Subjective Subjective The patient was seen and examined at the bedside this morning. Events from the last 24 hours have been reviewed. The patient is currently afebrile, hemodynamically stable and maintaining appropriate oxygen saturations on assist- control mode mechanical ventilation with an FiO2 requirement of 30% and PEEP of 5. The patient is currently documented to be overall net +5 L for the hospitalization. White blood cell count is stable at 13,000. Hemoglobin and platelet count are stable. Creatinine has improved to 1.26. Following my evaluation of the patient this morning, she was placed on a spontaneous awakening trial, which she tolerated without issue. The patient subsequently completed a spontaneous breathing trial and was extubated. Objective Data Objective Data The patient's most recent lab work, culture data and imaging studies have all been personally reviewed. Strep and urine Legionella antigens were negative. Respiratory viral panel was negative. Blood and sputum cultures are pending. Vital Signs: Vital Signs Temp Pulse Resp BP Pulse Ox O2 Del Method O2 Flow Rate 98.0 F 16 L 16 95/47 L 95 Mechanical Ventilator 3 11/01/24 06:00 11/01/24 06:53 11/01/24 06:53 11/01/24 06:00 11/01/24 06:53 11/01/24 06:00 10/30/24 11:30 FiO2 30 11/01/24 06:53 Oxygen Flow Rate (L/min) 3 Oxygen Delivery Method Mechanical Ventilator Weight: 210 lb 15.718 oz Body Mass Index (BMI) 36.0 Intake & Output: Intake and Output for Last 24 Hours 10/30/24 10/31/24 11/01/24 23:59 23:59 23:59 Intake Total 4038.48 / 4047.08 1353.67 / 1368.07 1021.57 / 1021.57 Output Total 200 / 475 750 / 750 150 / 150 Balance 3838.48 / 3572.08 603.67 / 618.07 871.57 / 871.57 Lab / Micro Data Attestation: I reviewed the patient's lab results. 11/01/24 04:57 11/01/24 04:57 Labs: Laboratory Results - last 24 hr 11/01/24 04:57: WBC 13.5 H, RBC 3.84 L, Hgb 11.2 L, Hct 34.1 L, MCV 88.8, MCH 29.2, MCHC 32.8, RDW Std Deviation 51.6 H, RDW Coeff of Joseph 15.8 H, Plt Count 194, MPV 10.9, Sodium 139, Potassium 4.5, Chloride 109 H, Carbon Dioxide 18.8 L, Anion Gap 11, BUN 41 H, Creatinine 1.26 H, Estim Creat Clear Calc 56.62, Est GFR (MDRD) Non-Af 50 L, BUN/Creatinine Ratio 32.1 H, Glucose 201 H, Calcium 8.1 Micro: Microbiology 10/30/24 13:54 Sputum, Induced/Lukens Gram Stain - Final 10/30/24 15:42 Mucosa - Nasopharyngeal Respiratory Panel (PCR) - Final 10/30/24 Unknown Urine Catheter - Lazo Legionella Antigen - Final 10/30/24 Unknown Urine Catheter - Lazo Streptococcus pneumoniae Antigen (M - Final 10/30/24 08:30 Mucosa - Nose SARS-CoV-2, Influenza & RSV (PCR) - Final 10/30/24 08:15 Stool Stool Occult Blood (IGNACIO) - Final ABG Data ABG results: ABG 10/31/24 08:45 Specimen Type ART Sample Site R Radial pH 7.41 Bicarbonate Actual 19.1 L Total CO2 20 Base Excess -6 L O2 Saturation 99 O2 % 45.0 ABG pCO2 30.3 L ABG pO2 128 H Lester Test N/A Respiration Rate 20 O2 Delivery Device Adult Vent Vent Mode AC Tidal Volume 400.0 POC PEEP 5 Physical Exam Const alert Constitutional Narrative: Remains intubated and mechanically ventilated. General Appearance: cooperative HEENT normocephalic and head/scalp atraumatic Mouth: endotracheal tube in place and OG tube in place Eyes PERRL, EOMs intact bilaterally and conjunctivae normal Neck supple General: trachea midline Chest inspection of chest normal Resp Auscultation: rales and diminished lung sounds Cardio regular rate and regular rhythm GI normal to inspection, nondistended, normoactive bowel sounds Extremity no clubbing, cyanosis or edema Skin no rashes or lesions noted Neuro Neuro Narrative: Alert and able to follow commands appropriately. Charges/Coding Procedures Hospitalists Procedures: [id number] Critical Care 1st Hr
--- NOTE | 2024-11-01 10:03 | PN.HOSP_ITS ---
Reason for Visit Reason for Visit: Diagnoses Acute and chronic respiratory failure with hypoxia (10/30/24) Subjective Subjective Patient was successfully extubated this morning. I saw patient midmorning and she was breathing comfortably on 2 L nasal cannula at rest. Was fatigued appearing but otherwise sitting back comfortably in bed and answering questions appropriately. She reported feeling tired but otherwise denied any specific pain or discomfort. No other acute concerns this morning. Objective Data Objective Data Vital Signs: Vital Signs Temp Pulse Resp BP Pulse Ox O2 Del Method O2 Flow Rate 98.3 F 72 10 L 138/67 H 96 Nasal Cannula 2 11/01/24 08:00 11/01/24 10:00 11/01/24 10:00 11/01/24 10:00 11/01/24 10:00 11/01/24 10:00 11/01/24 10:00 FiO2 30 11/01/24 08:00 Oxygen Flow Rate (L/min) 2 Oxygen Delivery Method Nasal Cannula Weight: 95.7 kg Body Mass Index (BMI) 36.0 Intake & Output: Intake and Output for Last 24 Hours 10/30/24 10/31/24 11/01/24 23:59 23:59 23:59 Intake Total 4038.48 / 4047.08 1353.67 / 1368.07 1051.57 / 1051.57 Output Total 200 / 475 750 / 750 150 / 150 Balance 3838.48 / 3572.08 603.67 / 618.07 901.57 / 901.57 Lab / Micro Data 11/01/24 04:57 11/01/24 04:57 Labs: Laboratory Results - last 24 hr 11/01/24 04:57: WBC 13.5 H, RBC 3.84 L, Hgb 11.2 L, Hct 34.1 L, MCV 88.8, MCH 29.2, MCHC 32.8, RDW Std Deviation 51.6 H, RDW Coeff of Joseph 15.8 H, Plt Count 194, MPV 10.9, Sodium 139, Potassium 4.5, Chloride 109 H, Carbon Dioxide 18.8 L, Anion Gap 11, BUN 41 H, Creatinine 1.26 H, Estim Creat Clear Calc 56.62, Est GFR (MDRD) Non-Af 50 L, BUN/Creatinine Ratio 32.1 H, Glucose 201 H, Calcium 8.1 Micro: Microbiology 10/30/24 Unknown Urine, Catheterized Urine Culture - Final Culture exhibits no growth. 10/30/24 13:54 Sputum, Induced/Lukens Gram Stain - Final 10/30/24 15:42 Mucosa - Nasopharyngeal Respiratory Panel (PCR) - Final 10/30/24 Unknown Urine Catheter - Lazo Legionella Antigen - Final 10/30/24 Unknown Urine Catheter - Lazo Streptococcus pneumoniae Antigen (M - Final 10/30/24 08:30 Mucosa - Nose SARS-CoV-2, Influenza & RSV (PCR) - Final 10/30/24 08:15 Stool Stool Occult Blood (IGNACIO) - Final Physical Exam Const alert, oriented x3 and no apparent distress Constitutional Narrative: Middle-aged female, fatigued appearing but otherwise sitting back comfortably in bed, conversing normally, in no acute distress. General Appearance: cooperative and comfortable HEENT normocephalic, head/scalp atraumatic, hearing grossly normal bilaterally, nasal mucous membranes and turbinates normal and moist oral mucous membranes Eyes PERRL, EOMs intact bilaterally and conjunctivae normal Neck full ROM Chest inspection of chest normal Resp normal respiratory effort and no use of accessory muscles Resp Narrative: Breathing comfortably on 2 L nasal cannula at rest. Mild crackles noted in bilateral lung bases but otherwise good air movement throughout with no wheezing noted. Significantly improved from admission. Cardio regular rate, regular rhythm, no murmurs and peripheral pulses 2+ throughout GI normal to inspection, nondistended, normoactive bowel sounds, soft to palpation, non-tender and non-distended Back/Spine normal ROM Extremity normal to inspection, full ROM and no pedal edema Skin no rashes or lesions noted Psych mental status grossly normal Assessment & Plan Assessment/Plan (1) Acute on chronic hypoxic respiratory failure: PLAN: Plan Patient is a 54-year-old female who presented to [facility] ED on 10/30/2024 with worsening shortness of breath. 1. Acute on chronic hypoxic respiratory failure secondary to community-acquired pneumonia versus pneumonitis, improving ? 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 On home 2 to 3 L nasal cannula at rest. Presented with quickly progressive shortness of breath with hypoxia. CTA chest with no PE but did show extensive bilateral infiltrates concerning for pneumonia versus pneumonitis. Respiratory status deteriorated in the ED and she was intubated. Infectious workup negative. Successfully extubated to nasal cannula on 11/01. Per head well puller, continue treatment with IV antibiotics and IV steroids. Continue to wean supplemental oxygen as able. Will monitor today and if remains stable tomorrow, will be okay for transfer out of the ICU. 2. Elevated troponins with mildly elevated BNP ? Troponin trend 53 > 70 > 125 > 153. BNP 1878. EKG with no ischemic changes noted. Presume secondary to demand ischemia due to above. History of heart failure with recovered EF as below. Will hold on further cardiac workup at this time. 3. Mild creatinine elevation in setting of CKD stage IIIa with mild hyperkalemia, improved ? Creatinine 1.33 on admit, at baseline. Slightly worsened to 1.6 on hospital day 2 and potassium worsened to 5.5. Given IV fluids and improved back to baseline with normalization of potassium on 11/01 with improving urine output. Continue to hold home Lasix and losartan for now but will restart when able. 4. Acute debility ? PT/OT/case management following. Patient with acute weakness in setting of respiratory failure and recent intubation. Appreciate therapy recommendations. Chronic medical conditions: ? Class I obesity: BMI 34 on admit. Complicates hospital course, care and prognosis. ? History of heart failure with recovered ejection fraction, hypertension, hyperlipidemia: Last echo in 12/2023 showed EF 65%, mildly enlarged LA, no other concerning findings noted. Continue to hold home Coreg, Lasix, hydralazine, losartan and atorvastatin, will restart when able. ? Anxiety/depression: Continue home sertraline and ziprasidone. ? GERD: Continue home PPI. DVT prophylaxis: Heparin subcu CODE STATUS: Full code, verified Expected disposition: Home with home health care versus SNF, 2 to 3 days Total clinical time spent by myself addressing the patient's medical issues, reviewing all the data, and collaborating with patient's care team: 35 minutes. Charges/Coding Visit Charges Inpatient E&M: 46335 Subs Hosp L2
[2024-11-01] MEDS: Ziprasidone HCl 20 MG Capsule 60 MG PO (10:05)
[2024-11-01] MEDS: Sertraline 50 MG Tablet 75 MG PO (10:06)
[2024-11-01] MEDS: CHLORHEXIDINE GLUC 2% CLOTH 1 EACH TOWELETTE TOPICAL (10:06)
[2024-11-01] MEDS: Pantoprazole Sodium 40 MG Tablet PO (10:06)
[2024-11-01] MEDS: Heparin Injection (Vial) 5,000 UNIT/ML VIAL 5000 UNIT SC (10:07)
[2024-11-01] MEDS: Meropenem 1 GM in 0.9% Normal Saline (100mL MB+) 100 ML IV ×2 (10:17→20:52)
--- NOTE | 2024-11-01 13:03 | CASEMGMT ---
HENRY العراقي Assessment Face to Face with patient for initial transition planning/care coordination assessment. HENRY العراقي introduced self and role at [facility], pt voices understanding. Pt is A&Ox4 and is resting comfortably in bed and is calm. Care providers, pharmacy, and demographics verified. Admitting dx: CORKY VINCENT Strata: 3 PCP: Susy Funez Specialists: VIRAL. Pt states that she does not see a Frame Stripper. Pt was encouraged to get established and was provided resources Preferred Pharmacy: [facility] Insurance: PETER HERNANDEZ Prescription Benefit: Yes LNOK: Bibi Soto (Mother), Taqueria (Son), Eliazar Warner (SO) Living Arrangements: Pt lives with her SO in a 2nd story apartment with 18 steps to enter with a handrail. ADLs/IADLs: Pt states that she is indep and denies concerns at this time Transportation: SO, insurance DME: Home oxygen through [employer]. [employer] confirms pt current order states 2L @ rest, 3L w/ Exertion, and 2L HS via NC. Pt has a concentrator, portable tanks, pulse ox, nebulizer, and inhaler. Pt states that her portable tanks are currently out of oxygen. Pt will need a new portable tank delivered at the time of DC. Dr. Jara anticipates that the pt will be able to DC over the weekend. TC xu Wilson from [employer] who states that a tank can be taken from stock if DC is over the weekend. Green sheet placed on chart HHC/SNF: Hx with [facility] HH. Denies SNF Hx or needs Pt?s goal: Return home Plan: Anticipate return home once medically ready, follow for increase in O2 demands and deliver tank to bedside @ the time of DC. Pt denies the need for HH or OP Tx at this time. Pt states that she feels safe returning home with her SO once she is medically ready and denies further needs at this time. Isaías Haynes RN, CM
[2024-11-01] MEDS: hydrALAZINE 50 MG Tablet PO ×2 (14:13→20:52)
[2024-11-01] MEDS: Carvedilol 12.5 MG Tablet PO (18:03)
[2024-11-01] MEDS: Budesonide Respules 0.5 MG/2 ML AMPUL.NEB. INHALATION (19:05)
[2024-11-01] MEDS: Methylprednisolone Sod Succ 40 MG/ML VIAL IV (20:52)
[2024-11-01] MEDS: Ziprasidone HCl 20 MG Capsule 80 MG PO (20:52)
[2024-11-01] MEDS: hydrOXYzine PAM 25 MG Capsule 50 MG PO (20:53)
[2024-11-01] MEDS: Atorvastatin Calcium 40 MG Tablet PO (20:53)
[2024-11-02] VITALS (37 sets, daily range): BP systolic 97–213; BP diastolic 52–125; PULSE 60–133; RESP 10–28; TEMP 36.6–37.7; O2SAT 25–99; BMI 36.1
[2024-11-02 02:24] LABS: Vancomycin, Trough Level 21.6 ug/mL (5.0-15.0)
--- NOTE | 2024-11-02 02:29 | PCM.RX.CS ---
Consult Antibiotic Management Pharmacy has been consulted to manage selected antibiotic: Vancomycin Type of Intervention Type of Consult: Follow-up Labs Labs: Sodium 139 mmol/L (133-145) 11/01/24 04:57 Potassium 4.5 mmol/L (3.3-5.1) 11/01/24 04:57 Chloride 109 mmol/L (98-108) H 11/01/24 04:57 Carbon Dioxide 18.8 mmol/L (21.0-32.0) L 11/01/24 04:57 Anion Gap 11 (5-15) 11/01/24 04:57 BUN 41 mg/dL (4-19) H 11/01/24 04:57 Creatinine 1.26 mg/dL (0.70-1.20) H 11/01/24 04:57 Est GFR (MDRD) Non-Af 50 (>60) L 11/01/24 04:57 BUN/Creatinine Ratio 32.1 RATIO (10-20) H 11/01/24 04:57 Glucose 201 mg/dL (70-99) H 11/01/24 04:57 Vancomycin Trough 21.6 ug/mL (5.0-15.0) H 11/02/24 01:25 Microbiology Microbiology: Microbiology 10/30/24 10:00 Blood Culture (Wb) - Left Wrist Blood Culture - Preliminary No growth in 48 hours. 10/30/24 10:00 Blood Culture (Wb) - Anticubital Right Blood Culture - Preliminary No growth in 48 hours. 10/30/24 13:54 Sputum, Induced/Lukens Gram Stain - Final 10/30/24 13:54 Sputum, Induced/Lukens Respiratory Culture - Final 10/30/24 Unknown Urine, Catheterized Urine Culture - Final Culture exhibits no growth. 10/30/24 15:42 Mucosa - Nasopharyngeal Respiratory Panel (PCR) - Final 10/30/24 Unknown Urine Catheter - Lazo Legionella Antigen - Final 10/30/24 Unknown Urine Catheter - Lazo Streptococcus pneumoniae Antigen (M - Final 10/30/24 08:30 Mucosa - Nose SARS-CoV-2, Influenza & RSV (PCR) - Final 10/30/24 08:15 Stool Stool Occult Blood (IGNACIO) - Final Goal Trough Goal Trough: 15-20 mcg/mL Pharmacy Plan for Drug Dosing Pharmacy Plan for Drug Dosing: Pharmacy Service will continue to monitor and adjust dosing as required. TROUGH 21.6 @ 11 HOURS. HOLD DOSE AND DRAW RANDOM LEVEL IN 8 HOURS Follow-Up Labs Follow-Up Labs: Trough: Vancomycin Date/Time Labs Ordered Labs to be done on [date and time ordered]: 11/02 @ [id number]
[2024-11-02 04:26] LABS: Hematocrit 31.8 % (37-47); Hemoglobin 10.8 g/dL (12.0-15.0); Mean Corpuscular Hgb 29.3 pg (27.0-32.0); Mean Corpuscular Volume 86.4 fL (81-99); Mean Platelet Vol. 10.2 fl (6.2-12.0); Platelet Count 184 K/mm3 (150-450); RBC Distribution Width CV 15.8 % (11.6-14.6); RBC Distribution Width SD 49.4 fl (35.1-43.9); Red Blood Count 3.68 M/mm3 (4.2-5.4); White Blood Count 13.6 K/mm3 (4.4-11.0)
[2024-11-02 04:44] LABS: Anion Gap 8 (5-15); BUN 31 mg/dL (4-19); BUN/Creat Ratio 34.2 RATIO (10-20); Calcium,Total 8.1 mg/dL (7.6-11.0); Chloride 110 mmol/L (98-108); Creatinine, Serum 0.91 mg/dL (0.70-1.20); EST Glomerular Filtration Rate 74 (>60); Estimated Creatinine Clearance 78.54 ml/min (50-250); Glucose 151 mg/dL (70-99); Potassium 4.4 mmol/L (3.3-5.1); Sodium Level 141 mmol/L (133-145)
[2024-11-02] MEDS: hydrALAZINE 50 MG Tablet PO ×3 (05:10→20:48)
[2024-11-02] MEDS: 0.9% Saline Lock 10 ML Syringe IV ×2 (05:10→13:13)
[2024-11-02] MEDS: Meropenem 1 GM in 0.9% Normal Saline (100mL MB+) 100 ML IV ×3 (05:10→20:47)
[2024-11-02] MEDS: Methylprednisolone Sod Succ 40 MG/ML VIAL IV ×3 (05:20→20:48)
[2024-11-02] MEDS: Ipratropium/Albuterol Sulfate 3 ML AMPUL.NEB INHALATION ×3 (06:00→19:25)
[2024-11-02] MEDS: Budesonide Respules 0.5 MG/2 ML AMPUL.NEB. INHALATION ×2 (06:00→19:25)
--- NOTE | 2024-11-02 06:02 | NURSING ---
Took patient off BIPAP and placed on 2 L NC. This RN and SEC ACCOUNTANT were giving patient a bed bath. While rolling her, she became acutely short of breath and was placed back on bipap. Unable to catch her breath, tripoding in the bed, LS dim. Respiratory to bedside and started a breathing tx.
[2024-11-02] MEDS: Losartan Potassium 100 MG Tablet PO (08:20)
[2024-11-02] MEDS: Enoxaparin 40 MG/0.4 ML Syringe SC (08:20)
[2024-11-02] MEDS: Carvedilol 12.5 MG Tablet PO ×2 (08:20→16:44)
[2024-11-02] MEDS: Pantoprazole Sodium 40 MG Tablet PO (08:21)
[2024-11-02] MEDS: Sertraline 50 MG Tablet 75 MG PO (08:21)
[2024-11-02] MEDS: Furosemide 40 MG Tablet PO (08:21)
[2024-11-02] MEDS: hydrOXYzine PAM 25 MG Capsule 50 MG PO ×2 (08:21→20:48)
[2024-11-02] MEDS: Ziprasidone HCl 20 MG Capsule 60 MG PO (08:21)
--- NOTE | 2024-11-02 08:53 | CON.PCM.CC_ITS ---
HPI Consult Data Date of Consult: 11/02/24 HPI Narrative Reason for Consultation: AECOPD, hypoxemic RF HPI Narrative: RAYMON HAAS, is a 54 F former smoker with COPD, 1 recent admit in May 2024 for PNA, who presents with acute SOB, 911 called by YUNG WARD. INtubated in ED for ARF, now extubated and still very hypoxemic. Cough productive of reddish sputum. Denies CP. No f/c/r. No sick contacts at home. Currently is on 15LNC and still saturation of 88-89%. Requiring rescue BIPAP 12/6cwp this AM for increased WOB and hypoxemia. Is currently on vanc and meropenem 2/2 h/o PCN allergy. [facility] Medical History Shock Elevated troponin Transaminitis Non-ST elevation [place] (NSTEMI) Pneumonia Takotsubo cardiomyopathy Bipolar disorder Anxiety Depression Osteoarthritis Kidney stones Hx of gastroesophageal reflux (GERD) Smoker BiPAP (biphasic positive airway pressure) dependence Asthma Myocardial infarct Chest pain Stroke/cerebrovascular accident Migraines Seizures Ulcerative colitis Hypertension COPD (chronic obstructive pulmonary disease) Home Medications ?Medication ?Instructions ?Recorded ?Last Taken ?Type albuterol sulfate 90 mcg/actuation 2 puff inhalation Q 6H PRN COPD 02/02/19 01/09/24 History aerosol inhaler atorvastatin 40 mg tablet 40 mg PO QHS cholesterol 10/30/24 History omeprazole 40 mg capsule,delayed 40 mg PO DAILY GERD 0 11/07/23 10/30/24 History release sertraline 50 mg tablet 75 mg PO DAILY Mood 11/07/23 06/21/24 History ziprasidone HCl 80 mg capsule 80 mg PO QHS antipsychot ic 11/07/23 06/21/24 History fluticasone 100 mcg-salmeterol 50 1 ea inhalation BID allergies 01/10/24 06/21/24 History mcg/dose blistr powdr for inhalation furosemide 40 mg tablet 40 mg PO DAILY edema #60 tab s 05/26/24 10/30/24 Rx losartan 100 mg tablet 100 mg PO DAILY bp 06/22/24 10/30/24 History ziprasidone HCl 60 mg capsule 60 mg PO DAILY bipolar 0 06/22/24 06/21/24 History carvedilol 12.5 mg tablet 12.5 mg PO BIDCM 30 days #60 tabs 06/25/24 10/30/24 Rx hydralazine 50 mg tablet 50 mg PO TID 30 days #90 tab s 06/25/24 10/30/24 Rx hydroxyzine pamoate 100 mg capsule 50 mg (1/2 x 100 mg ) PO BID 06/25/24 10/30/24 Rx Anxiety 3 days #0 caps ipratropium 0.5 mg-albuterol 3 mg 3 ml inhalation Q6HW A.RT PRN sob 1 06/25/24 Unknown Rx (2.5 mg base)/3 mL nebulization month #90 mL soln meloxicam 15 mg tablet 15 mg PO DAILY pain 11/01/24 Unknown History Allergy/AdvReac Type Severity Reaction Status Date / Time meperidine (From Demerol) Allergy Other Verified 10/30/24 07:49 metronidazole (From Flagyl) Allergy Hives Verified 10/30/24 07:49 oxycodone (From Percocet) Allergy Hives Verified 10/30/24 07:49 Penicillins Allergy Hives Verified 10/30/24 07:49 aspirin AdvReac Vomiting Verified 10/30/24 07:49 Family History Mother Myocardial infarction Cancer Brother Myocardial infarction Surgical History History of left heart catheterization (~10/2023) Hx of hysterectomy History of appendectomy Social History Smoking Status: Former smoker how long ago did patient quit smoking: Quit 2 weeks ago per patient report on 01/12/2024 alcohol intake: never substance use type: does not use caffeine: Yes (occasionally) ROS ROS Narrative 12 or more systems reviewed and are negative except as per HPI Objective Data Objective Data Vital Signs: Vital Signs Last response 3 Temperature 37.4 C H 11/02/24 07:00 Temperature Source Core 11/02/24 07:00 Pulse Rate 81 11/02/24 07:23 Pulse Strength Weak (1+) 11/01/24 19:47 Respiratory Rate 22 H 11/02/24 07:23 Respiratory Effort Normal, Non-Labored 11/02/24 04:00 Respiratory Depth Normal 11/02/24 04:00 Respiratory Pattern Tachypnea 11/02/24 07:23 Blood Pressure 187/84 H 11/02/24 07:00 Blood Pressure Mean 118 11/02/24 07:00 Blood Pressure Source Monitor 11/02/24 07:00 Blood Pressure Position Semi-Fowlers 11/02/24 07:00 Blood Pressure Location Right Forearm 11/02/24 07:00 Pulse Ox 94 11/02/24 07:23 Oxygen Delivery Method Bi-pap 11/02/24 07:00 Oxygen Flow Rate (L/min) 2 11/01/24 22:00 Fraction of Inspired Oxygen (FIO2) 30 11/02/24 07:23 I&O: I&O Last 24 Hours 3 11/01/24 11/01/24 11/02/24 11:59 23:59 11:59 Intake Total 1051.57 / 1536.57 385 / 1536.57 220 / 220 Output Total 150 / 1550 900 / 1550 800 / 800 Balance 901.57 / -13.43 -515 / -13.43 -580 / -580 I&O: Total Stay 3 10/30/24 07:48 thru 11/02/24 05:57 Intake Total 7048.72 Output Total 2800 Balance 4248.72 Current Meds Ordered / Administered: Current meds ordered / Administered 3 Generic Name Dose Route Start Last Admin Trade Name Freq PRN Reason Stop Dose Admin Acetaminophen 650 mg 10/30/24 16:00 Acetaminophen 325 Mg Tablet PO Q6H PRN PRN Pain 1-10 Or Fever>100.7 Albuterol/Ipratropium 3 ml 11/01/24 16:45 11/02/24 06:00 Ipratropium/Albuterol Sulfate 3 Ml Ampul.Neb INHALATION 3 ml Q6HWA.RT LAUREL Administration Atorvastatin Calcium 40 mg 11/01/24 22:00 11/01/24 20:53 Atorvastatin Calcium 40 Mg Tablet PO 40 mg QHS LAUREL Administration Budesonide 0.5 mg 11/01/24 12:45 11/02/24 06:00 Budesonide Respules 0.5 Mg/2 Ml Ampul.Neb. INHALATION 0.5 mg Q12H.RT LAUREL Administration Carvedilol 12.5 mg 11/01/24 17:00 11/02/24 08:20 Carvedilol 12.5 Mg Tablet PO 12.5 mg BIDCM LAUREL Administration Enoxaparin Sodium 40 mg 11/02/24 10:00 11/02/24 08:20 Enoxaparin 40 Mg/0.4 Ml Syringe SC 40 mg DAILY LAUREL Administration Furosemide 40 mg 11/02/24 10:00 11/02/24 08:21 Furosemide 40 Mg Tablet PO 40 mg DAILY LAUREL Administration Protocol Hydralazine HCl 50 mg 11/01/24 14:00 11/02/24 05:10 Hydralazine 50 Mg Tablet PO 50 mg TID LAUREL Administration Protocol Hydralazine HCl 10 mg 11/02/24 07:17 Hydralazine 20 Mg/Ml Vial IV Q4H PRN PRN SBP GREATER THAN 170 Protocol Hydroxyzine Pamoate 50 mg 11/01/24 22:00 11/02/24 08:21 Hydroxyzine Lisa 25 Mg Capsule PO 50 mg BID LAUREL Administration Vancomycin IV-PHARMACY TO DOSE 500 mls @ 250 mls/hr 10/31/24 08:40 1 each/ Sodium Chloride IV X1 PRN Rx to Dose Protocol Meropenem 1 gm/ Sodium 120 mls @ 33 mls/hr 11/01/24 09:40 11/02/24 05:10 Chloride IV 33 mls/hr Q8 LAUREL Administration Losartan Potassium 100 mg 11/02/24 10:00 11/02/24 08:20 Losartan Potassium 100 Mg Tablet PO 100 mg DAILY LAUREL Administration Protocol Methylprednisolone Sodium Succinate 40 mg 11/01/24 22:00 11/02/24 05:20 Methylprednisolone Sod Succ 40 Mg/Ml Vial IV 40 mg Q8 LAUREL Administration Ondansetron HCl 4 mg 10/30/24 16:00 Ondansetron 4 Mg/2 Ml Vial IV Q8H PRN PRN NAUSEA/VOMITING Pantoprazole Sodium 40 mg 10/31/24 10:00 11/02/24 08:21 Pantoprazole Sodium 40 Mg Tablet PO 40 mg DAILY LAUREL Administration Sertraline HCl 75 mg 10/31/24 10:00 11/02/24 08:21 Sertraline 50 Mg Tablet PO 75 mg DAILY LAUREL Administration Sodium Chloride 10 - 40 ml 10/30/24 16:39 11/02/24 05:10 0.9% Saline Lock 10 Ml Syringe IV 20 ml UD PRN Administration SALINE FLUSH Vancomycin Protocol 1 lab 11/02/24 08:30 Vancomycin Trough/Random Due 11/02/24 10:30 DAILY LAUREL Ziprasidone 60 mg 10/31/24 10:00 11/02/24 08:21 Ziprasidone Hcl 20 Mg Capsule PO 60 mg DAILY LAUREL Administration Ziprasidone 80 mg 10/30/24 22:00 11/01/24 20:52 Ziprasidone Hcl 20 Mg Capsule PO 80 mg QHS LAUREL Administration Physical Exam Const alert, oriented x3 and no apparent distress General Appearance: ill appearing HEENT normocephalic, head/scalp atraumatic and moist oral mucous membranes Eyes PERRL, EOMs intact bilaterally, conjunctivae normal and no scleral icterus Neck full ROM, no lymphadenopathy, supple and no JVD Lymph Lymphatic: no lymphadenopathy noted Chest inspection of chest normal Resp normal respiratory effort and no use of accessory muscles Effort and Inspection: able to speak in complete sentences Auscultation: rales and diminished lung sounds Cardio regular rate, regular rhythm, S1 normal heart sound, S2 normal heart sound, no murmurs, no rub, no gallops and no JVD GI normal to inspection, nondistended, normoactive bowel sounds, soft to palpation and non-tender Back/Spine no CVA tenderness Extremity no clubbing, cyanosis or edema Skin no rashes or lesions noted Neuro oriented x3, CN's II-XII intact bilaterally, moves all extremities and no focal motor deficits Psych cooperative and affect normal Lab / Micro Data Attestation: I reviewed the patient's lab results. 11/02/24 04:18 11/02/24 04:18 Labs: Laboratory Results - last 24 hr 11/02/24 01:25: Vancomycin Trough 21.6 H 11/02/24 04:18: WBC 13.6 H, RBC 3.68 L, Hgb 10.8 L, Hct 31.8 L, MCV 86.4, MCH 29.3, MCHC 34.0, RDW Std Deviation 49.4 H, RDW Coeff of Joseph 15.8 H, Plt Count 184, MPV 10.2, Sodium 141, Potassium 4.4, Chloride 110 H, Carbon Dioxide 22.0, Anion Gap 8, BUN 31 H, Creatinine 0.91, Estim Creat Clear Calc 78.54, Est GFR (MDRD) Non-Af 74, BUN/Creatinine Ratio 34.2 H, Glucose 151 H, Calcium 8.1 Micro: Microbiology 10/30/24 10:00 Blood Culture (Wb) - Left Wrist Blood Culture - Preliminary No growth in 48 hours. 10/30/24 10:00 Blood Culture (Wb) - Anticubital Right Blood Culture - Preliminary No growth in 48 hours. 10/30/24 13:54 Sputum, Induced/Lukens Gram Stain - Final 10/30/24 13:54 Sputum, Induced/Lukens Respiratory Culture - Final 10/30/24 Unknown Urine, Catheterized Urine Culture - Final Culture exhibits no growth. Imaging CT Chest reviewed personally and with pt Assessment and Plan . Assessment and plan: ICU Problem List: Acute hypoxemic RF Multilobar PNA AECOPD hemoptysis? Plan: swab nares for MRSA r/o and DC vanc if not present oximask trial target SpO2 94% or above Increase pressure on BIPAP to 14/10cwp for alveolar recruitment and to overcome airway obstruction as well continue scheduled duoneb for maintenance of bronchodilation defer chest PT 2/2 possible hemoptysis if red coloration to sputum persists or worsens, may need bronch and BAL vs CT Angio may just be tracheal trauma from ETT vs capillary permeability from PNA CASE MANAGER SPECIALIST evaluation due to posterior and R side dominant PNA c/w appearance of aspiration continue methylpred empirically, in this case more for possible acute parenchymal lung injury mechanism than airway inflammation Wade Hendricks MD [facility] Access TeleCare Critical Care Time: 60 min The entirety of this encounter was done via Telemedicine
--- NOTE | 2024-11-02 09:35 | PCM.PN.HOSP ---
Reason for Visit Reason for Visit: Diagnoses Acute and chronic respiratory failure with hypoxia (10/30/24) Subjective Subjective Saw patient at bedside this morning. Tele-ICU doctor was rounding on the patient at that time as well. Patient had an episode earlier this morning where she had acute respiratory distress when staff tried to get her up to use the restroom. She was given a breathing treatment with some improvement but her oxygen saturations have remained low for the past several hours. Per air crew officer, still most consistent with pneumonia with possible bronchospasm this morning. Given the dependent nature of the pneumonia on imaging, recommending speech therapy consult for evaluation for aspiration. Will also place patient on Ventimask for period time to help improve her oxygen saturations. Patient exercise that she feels fine this morning, denies any shortness of breath at rest. Has had mild cough with occasional sputum production. No other new concerns morning. Objective Data Objective Data Vital Signs: Vital Signs Temp Pulse Resp BP Pulse Ox O2 Del Method O2 Flow Rate 99.3 F H 89 19 H 179/112 H 92 Venturi Mask 15 11/02/24 09:00 11/02/24 09:00 11/02/24 09:00 11/02/24 09:00 11/02/24 09:00 11/02/24 09:00 11/02/24 09:00 FiO2 50 11/02/24 09:00 Oxygen Flow Rate (L/min) 15 Oxygen Delivery Method Venturi Mask Weight: 96 kg Body Mass Index (BMI) 36.1 Intake & Output: Intake and Output for Last 24 Hours 10/31/24 11/01/24 11/02/24 23:59 23:59 23:59 Intake Total 1353.67 / 1368.07 1436.57 / 1536.57 340 / 340 Output Total 750 / 750 1050 / 1550 800 / 800 Balance 603.67 / 618.07 386.57 / -13.43 -460 / -460 Lab / Micro Data 11/02/24 04:18 11/02/24 04:18 Labs: Laboratory Results - last 24 hr 11/02/24 01:25: Vancomycin Trough 21.6 H 11/02/24 04:18: WBC 13.6 H, RBC 3.68 L, Hgb 10.8 L, Hct 31.8 L, MCV 86.4, MCH 29.3, MCHC 34.0, RDW Std Deviation 49.4 H, RDW Coeff of Joseph 15.8 H, Plt Count 184, MPV 10.2, Sodium 141, Potassium 4.4, Chloride 110 H, Carbon Dioxide 22.0, Anion Gap 8, BUN 31 H, Creatinine 0.91, Estim Creat Clear Calc 78.54, Est GFR (MDRD) Non-Af 74, BUN/Creatinine Ratio 34.2 H, Glucose 151 H, Calcium 8.1 Micro: Microbiology 10/30/24 10:00 Blood Culture (Wb) - Left Wrist Blood Culture - Preliminary No growth in 48 hours. 10/30/24 10:00 Blood Culture (Wb) - Anticubital Right Blood Culture - Preliminary No growth in 48 hours. 10/30/24 13:54 Sputum, Induced/Lukens Gram Stain - Final 10/30/24 13:54 Sputum, Induced/Lukens Respiratory Culture - Final 10/30/24 Unknown Urine, Catheterized Urine Culture - Final Culture exhibits no growth. 10/30/24 15:42 Mucosa - Nasopharyngeal Respiratory Panel (PCR) - Final 10/30/24 Unknown Urine Catheter - Lazo Legionella Antigen - Final 10/30/24 Unknown Urine Catheter - Lazo Streptococcus pneumoniae Antigen (M - Final 10/30/24 08:30 Mucosa - Nose SARS-CoV-2, Influenza & RSV (PCR) - Final 10/30/24 08:15 Stool Stool Occult Blood (IGNACIO) - Final Physical Exam Const alert, oriented x3 and no apparent distress Constitutional Narrative: Middle-aged female, fatigued appearing but otherwise sitting back comfortably in bed, conversing normally, in no acute distress. Stable. General Appearance: cooperative and comfortable HEENT normocephalic, head/scalp atraumatic, hearing grossly normal bilaterally, nasal mucous membranes and turbinates normal and moist oral mucous membranes Eyes PERRL, EOMs intact bilaterally and conjunctivae normal Neck full ROM Chest inspection of chest normal Resp normal respiratory effort and no use of accessory muscles Resp Narrative: Breathing comfortably on 6 L nasal cannula at rest. Diminished breath sounds throughout on right with crackles noted. Mild diminished breath sounds on left. No wheezing noted. Slightly worse than yesterday. Cardio regular rate, regular rhythm, no murmurs and peripheral pulses 2+ throughout GI normal to inspection, nondistended, normoactive bowel sounds, soft to palpation, non-tender and non-distended Back/Spine normal ROM Extremity normal to inspection, full ROM and no pedal edema Skin no rashes or lesions noted Psych mental status grossly normal Assessment & Plan Assessment/Plan (1) Acute on chronic hypoxic respiratory failure: PLAN: Plan Patient is a 54-year-old female who presented to [facility] ED on 10/30/2024 with worsening shortness of breath. 1. Acute on chronic hypoxic respiratory failure secondary to community-acquired pneumonia versus pneumonitis, improving ? Hospital Insurance Representative following. On home 2 to 3 L nasal cannula at rest. Presented with quickly progressive shortness of breath with hypoxia. CTA chest with no PE but did show extensive bilateral infiltrates concerning for pneumonia versus pneumonitis. Respiratory status deteriorated in the ED and she was intubated. Infectious workup negative. Successfully extubated to nasal cannula on 11/01. Unfortunately had episode on family service counselor of 11/02 with acute respiratory distress; given breathing treatment with some improvement but still with low saturations. Suspect this may have been due to bronchospasm per air crew officer. However with low saturations, patient placed on Ventimask. Continue treatment with IV antibiotics and IV steroids. Given the dependent nature of infiltrates on imaging, speech therapy consulted for swallow evaluation. Continue to wean supplemental oxygen as able. 2. Elevated troponins with mildly elevated BNP ? Troponin trend 53 > 70 > 125 > 153. BNP 1878. EKG with no ischemic changes noted. Presume secondary to demand ischemia due to above. History of heart failure with recovered EF as below. Will hold on further cardiac workup at this time. 3. Mild creatinine elevation in setting of CKD stage IIIa with mild hyperkalemia, improved ? Creatinine 1.33 on admit, at baseline. Slightly worsened to 1.6 on hospital day 2 and potassium worsened to 5.5. Given IV fluids and improved back to baseline with normalization of potassium on 11/01 with improving urine output. Restarted home Lasix and losartan on 11/01 and tolerating well. 4. Acute debility ? PT/OT/case management following. Patient with acute weakness in setting of respiratory failure and recent intubation. Appreciate therapy recommendations. Chronic medical conditions: ? Class I obesity: BMI 34 on admit. Complicates hospital course, care and prognosis. ? History of heart failure with recovered ejection fraction, hypertension, hyperlipidemia: Last echo in 12/2023 showed EF 65%, mildly enlarged LA, no other concerning findings noted. Restarted home Coreg, Lasix, hydralazine, losartan and atorvastatin on 613 and tolerating well. ? Anxiety/depression: Continue home sertraline and ziprasidone. ? GERD: Continue home PPI. DVT prophylaxis: Lovenox CODE STATUS: Full code, verified Expected disposition: Home possibly w/ HHC, TBD Total clinical time spent by myself addressing the patient's medical issues, reviewing all the data, and collaborating with patient's care team: 35 minutes. Charges/Coding Visit Charges Inpatient E&M: 78842 Subs Hosp L2
[2024-11-02] MEDS: Vancomycin Trough/Random Due 1 LAB MC ×2 (10:19)
[2024-11-02 10:41] LABS: Vancomycin, Random Level 15.2 ug/mL (0.0-15.0)
[2024-11-02] MEDS: Vancomycin HCl 750 MG in 0.9% Normal Saline (250mL Bag) 250 ML 250 MG IV (13:07)
--- NOTE | 2024-11-02 15:44 | PCM.RX.CS ---
Consult Antibiotic Management Pharmacy has been consulted to manage selected antibiotic: Vancomycin Type of Intervention Type of Consult: Follow-up Suspected Infection Suspected Infection: Pneumonia Labs Labs: Sodium 141 mmol/L (133-145) 11/02/24 04:18 Potassium 4.4 mmol/L (3.3-5.1) 11/02/24 04:18 Chloride 110 mmol/L (98-108) H 11/02/24 04:18 Carbon Dioxide 22.0 mmol/L (21.0-32.0) 11/02/24 04:18 Anion Gap 8 (5-15) 11/02/24 04:18 BUN 31 mg/dL (4-19) H 11/02/24 04:18 Creatinine 0.91 mg/dL (0.70-1.20) 11/02/24 04:18 Est GFR (MDRD) Non-Af 74 (>60) 11/02/24 04:18 BUN/Creatinine Ratio 34.2 RATIO (10-20) H 11/02/24 04:18 Glucose 151 mg/dL (70-99) H 11/02/24 04:18 Vancomycin Trough 21.6 ug/mL (5.0-15.0) H 11/02/24 01:25 Random Vancomycin 15.2 ug/mL (0.0-15.0) H 11/02/24 09:55 Microbiology Microbiology: Microbiology 11/02/24 09:55 Nasal Secretion MRSA (PCR) - Final 10/30/24 10:00 Blood Culture (Wb) - Left Wrist Blood Culture - Preliminary No growth in 48 hours. 10/30/24 10:00 Blood Culture (Wb) - Anticubital Right Blood Culture - Preliminary No growth in 48 hours. 10/30/24 13:54 Sputum, Induced/Lukens Gram Stain - Final 10/30/24 13:54 Sputum, Induced/Lukens Respiratory Culture - Final 10/30/24 Unknown Urine, Catheterized Urine Culture - Final Culture exhibits no growth. 10/30/24 15:42 Mucosa - Nasopharyngeal Respiratory Panel (PCR) - Final 10/30/24 Unknown Urine Catheter - Lazo Legionella Antigen - Final 10/30/24 Unknown Urine Catheter - Lazo Streptococcus pneumoniae Antigen (M - Final 10/30/24 08:30 Mucosa - Nose SARS-CoV-2, Influenza & RSV (PCR) - Final 10/30/24 08:15 Stool Stool Occult Blood (IGNACIO) - Final Goal Trough Goal Trough: 15-20 mcg/mL Pharmacy Plan for Drug Dosing Pharmacy Plan for Drug Dosing: VANCOMYCIN LEVEL RECEIVED Current Vancomycin Dose: Current dose on hold due to elevated trough. Previous dose was 750mg q12h Number of Doses Received: Vancomycin Level: Random level resulted at 15.2 Hours Since Last Dose: 19.5 hours since last 750mg dose Renal Function: SrCr 0.91 Renal Function Trend: SrCr improving (SrCr was 1.64 on 10/31, and 1.26 on 11/01) Lab/Micro: Vancomycin Plan/Comments: due to improving renal function, recommend restarting vancomycin at the previous dose of 750mg q12h. Will check a trough prior to the 4th dose on 11/03/24 at 2300 Pending Level: 11/03/24 at 2300 Pharmacy Service will continue to monitor and adjust dosing as required. Follow-Up Labs Follow-Up Labs: Trough: Vancomycin (11/03/24 at 2300)
[2024-11-02] MEDS: Atorvastatin Calcium 40 MG Tablet PO (20:48)
[2024-11-02] MEDS: Ziprasidone HCl 20 MG Capsule 80 MG PO (20:48)
[2024-11-03] VITALS (24 sets, daily range): BP systolic 93–157; BP diastolic 53–77; PULSE 55–69; RESP 10–18; TEMP 36.4–37.3; O2SAT 92–100; BMI 35.9
[2024-11-03] MEDS: Vancomycin HCl 750 MG in 0.9% Normal Saline (250mL Bag) 250 ML 250 MG IV (00:23)
[2024-11-03] MEDS: Ipratropium/Albuterol Sulfate 3 ML AMPUL.NEB INHALATION ×4 (01:15→19:00)
[2024-11-03 04:22] LABS: Hematocrit 33.4 % (37-47); Hemoglobin 11.3 g/dL (12.0-15.0); Mean Corp Hgb Conc 33.8 g/dL (32-36); Mean Corpuscular Hgb 29.3 pg (27.0-32.0); Mean Corpuscular Volume 86.5 fL (81-99); Mean Platelet Vol. 11.1 fl (6.2-12.0); Platelet Count 202 K/mm3 (150-450); RBC Distribution Width CV 15.5 % (11.6-14.6); RBC Distribution Width SD 48.7 fl (35.1-43.9); Red Blood Count 3.86 M/mm3 (4.2-5.4); White Blood Count 10.6 K/mm3 (4.4-11.0)
[2024-11-03 04:47] LABS: Anion Gap 10 (5-15); BUN 28 mg/dL (4-19); BUN/Creat Ratio 31.2 RATIO (10-20); Calcium,Total 7.9 mg/dL (7.6-11.0); Carbon Dioxide 21.3 mmol/L (21.0-32.0); Chloride 106 mmol/L (98-108); Creatinine, Serum 0.91 mg/dL (0.70-1.20); EST Glomerular Filtration Rate 75 (>60); Estimated Creatinine Clearance 78.27 ml/min (50-250); Glucose 139 mg/dL (70-99); Potassium 4.3 mmol/L (3.3-5.1); Sodium Level 138 mmol/L (133-145)
[2024-11-03] MEDS: hydrALAZINE 50 MG Tablet PO ×3 (05:23→20:56)
[2024-11-03] MEDS: Methylprednisolone Sod Succ 40 MG/ML VIAL IV ×3 (05:23→20:56)
[2024-11-03] MEDS: Meropenem 1 GM in 0.9% Normal Saline (100mL MB+) 100 ML IV (05:23)
[2024-11-03] MEDS: 0.9% Saline Lock 10 ML Syringe IV ×3 (05:24→21:04)
[2024-11-03] MEDS: Budesonide Respules 0.5 MG/2 ML AMPUL.NEB. INHALATION ×2 (07:05→19:00)
[2024-11-03] MEDS: Carvedilol 12.5 MG Tablet PO ×2 (08:07→16:56)
--- NOTE | 2024-11-03 09:01 | PN.CC_ITS ---
Objective Data Objective Data Vital Signs: Vital Signs Last response 3 Temperature 37.0 C 11/03/24 07:00 Temperature Source Core 11/03/24 07:00 Pulse Rate 57 L 11/03/24 07:05 Pulse Strength Weak (1+) 11/02/24 19:37 Respiratory Rate 14 11/03/24 07:05 Respiratory Effort Normal, Non-Labored 11/03/24 04:19 Respiratory Depth Normal 11/03/24 04:19 Respiratory Pattern Normal 11/03/24 07:05 Blood Pressure 141/64 H 11/03/24 07:00 Blood Pressure Mean 89 11/03/24 07:00 Blood Pressure Source Monitor 11/03/24 07:00 Blood Pressure Position Right Lateral 11/03/24 07:00 Blood Pressure Location Left Forearm 11/03/24 07:00 Pulse Ox 96 11/03/24 07:05 Oxygen Delivery Method Airvo 11/03/24 07:00 Oxygen Flow Rate (L/min) 60 11/03/24 07:00 Fraction of Inspired Oxygen (FIO2) 40 11/03/24 07:05 I&O: I&O Last 24 Hours 3 11/02/24 11/02/24 11/03/24 11:59 23:59 11:59 Intake Total 340 / 925 385 / 925 585 / 585 Output Total 800 / 3350 2350 / 3350 750 / 750 Balance -460 / -2425 -1965 / -2425 -165 / -165 I&O: Total Stay 3 10/30/24 07:48 thru 11/03/24 05:27 Intake Total 8138.72 Output Total 5900 Balance 2238.72 Current Meds Ordered / Administered: Current meds ordered / Administered 3 Generic Name Dose Route Start Last Admin Trade Name Freq PRN Reason Stop Dose Admin Acetaminophen 650 mg 10/30/24 16:00 Acetaminophen 325 Mg Tablet PO Q6H PRN PRN Pain 1-10 Or Fever>100.7 Acetylcysteine 800 mg 11/03/24 08:30 Acetylcysteine 800 Mg/4 Ml Vial.Neb. INHALATION 11/08/24 23:59 Q6H.RT LAUREL Albuterol/Ipratropium 3 ml 11/02/24 09:00 11/03/24 07:05 Ipratropium/Albuterol Sulfate 3 Ml Ampul.Neb INHALATION 3 ml Q6H.RT LAUREL Administration Albuterol/Ipratropium 3 ml 11/03/24 08:30 Ipratropium/Albuterol Sulfate 3 Ml Ampul.Neb INHALATION 11/08/24 23:59 Q6H.RT LAUREL Atorvastatin Calcium 40 mg 11/01/24 22:00 11/02/24 20:48 Atorvastatin Calcium 40 Mg Tablet PO 40 mg QHS LAUREL Administration Budesonide 0.5 mg 11/01/24 12:45 11/03/24 07:05 Budesonide Respules 0.5 Mg/2 Ml Ampul.Neb. INHALATION 0.5 mg Q12H.RT LAUREL Administration Carvedilol 12.5 mg 11/01/24 17:00 11/03/24 08:07 Carvedilol 12.5 Mg Tablet PO 12.5 mg BIDCM LAUREL Administration Enoxaparin Sodium 40 mg 11/02/24 10:00 11/02/24 08:20 Enoxaparin 40 Mg/0.4 Ml Syringe SC 40 mg DAILY LAUREL Administration Furosemide 40 mg 11/02/24 10:00 11/02/24 08:21 Furosemide 40 Mg Tablet PO 40 mg DAILY LAUREL Administration Protocol Hydralazine HCl 50 mg 11/01/24 14:00 11/03/24 05:23 Hydralazine 50 Mg Tablet PO 50 mg TID LAUREL Administration Protocol Hydralazine HCl 10 mg 11/02/24 07:17 Hydralazine 20 Mg/Ml Vial IV Q4H PRN PRN SBP GREATER THAN 170 Protocol Hydroxyzine Pamoate 50 mg 11/01/24 22:00 11/02/24 20:48 Hydroxyzine Lisa 25 Mg Capsule PO 50 mg BID LAUREL Administration Meropenem 1 gm/ Sodium 120 mls @ 33 mls/hr 11/01/24 09:40 11/03/24 05:23 Chloride IV 33 mls/hr Q8 LAUREL Administration Losartan Potassium 100 mg 11/02/24 10:00 11/02/24 08:20 Losartan Potassium 100 Mg Tablet PO 100 mg DAILY LAUREL Administration Protocol Methylprednisolone Sodium Succinate 40 mg 11/03/24 10:00 Methylprednisolone Sod Succ 40 Mg/Ml Vial IV Q12 LAUREL Ondansetron HCl 4 mg 10/30/24 16:00 Ondansetron 4 Mg/2 Ml Vial IV Q8H PRN PRN NAUSEA/VOMITING Pantoprazole Sodium 40 mg 10/31/24 10:00 11/02/24 08:21 Pantoprazole Sodium 40 Mg Tablet PO 40 mg DAILY LAUREL Administration Sertraline HCl 75 mg 10/31/24 10:00 11/02/24 08:21 Sertraline 50 Mg Tablet PO 75 mg DAILY LAUREL Administration Sodium Chloride 10 - 40 ml 10/30/24 16:39 11/03/24 05:24 0.9% Saline Lock 10 Ml Syringe IV 10 ml UD PRN Administration SALINE FLUSH Ziprasidone 60 mg 10/31/24 10:00 11/02/24 08:21 Ziprasidone Hcl 20 Mg Capsule PO 60 mg DAILY LAUREL Administration Ziprasidone 80 mg 10/30/24 22:00 11/02/24 20:48 Ziprasidone Hcl 20 Mg Capsule PO 80 mg QHS LAUREL Administration Lab / Micro Data Attestation: I reviewed the patient's lab results. 11/03/24 04:12 11/03/24 04:12 Labs: Laboratory Results - last 24 hr 11/02/24 09:55: Random Vancomycin 15.2 H 11/03/24 04:12: WBC 10.6, RBC 3.86 L, Hgb 11.3 L, Hct 33.4 L, MCV 86.5, MCH 29.3, MCHC 33.8, RDW Std Deviation 48.7 H, RDW Coeff of Joseph 15.5 H, Plt Count 202, MPV 11.1, Sodium 138, Potassium 4.3, Chloride 106, Carbon Dioxide 21.3, Anion Gap 10, BUN 28 H, Creatinine 0.91, Estim Creat Clear Calc 78.27, Est GFR (MDRD) Non-Af 75, BUN/Creatinine Ratio 31.2 H, Glucose 139 H, Calcium 7.9 Micro: Microbiology 11/02/24 09:55 Nasal Secretion MRSA (PCR) - Final Assessment and Plan . Assessment and plan: ICU Problem List: Acute hypoxemic RF Multilobar PNA AECOPD hemoptysis? Plan: Vancomycin discontinued, MRSA negative check procal to see if we can de-escalate from meropenem Enforce NIPPV 14/10cwp QHS Start Chest PT today q6h duoneb + muomyst neb q6h reduce methylpred to q12h target SpO2 94% or above can be PCU I anticipate recovery if she remains adherent to CPT and PT/OT Wade Hendricks MD [facility] Critical Care Time: 55 min The entirety of this encounter was done via Telemedicine Physical Exam Const alert, oriented x3 and no apparent distress General Appearance: ill appearing and frail HEENT normocephalic, head/scalp atraumatic and moist oral mucous membranes Mouth: oral and palatal mucosa normal Teeth and Gingiva: poor dentition Eyes PERRL, EOMs intact bilaterally, conjunctivae normal and no scleral icterus Neck full ROM, supple and no JVD Resp normal respiratory effort and no use of accessory muscles Effort and Inspection: able to speak in complete sentences Auscultation: diminished lung sounds Cardio regular rate and regular rhythm GI normal to inspection, nondistended, normoactive bowel sounds and soft to palpation no CVA tenderness Extremity no clubbing, cyanosis or edema Skin no rashes or lesions noted Neuro oriented x3, CN's II-XII intact bilaterally, moves all extremities and no focal motor deficits Psych cooperative and affect normal Subjective Subjective CC: feeling better re: SOB. Cough now dry HPI: 54yoF With COPD and recurrnet PNA episodes, last one in May 2024. 11/02 - hypoxemic and SOB on NIPPV 12/6cwp, brief hemoptysis episode of scant heme. 11/03 - hemoptysis resolved; cough now dry. Did not use BIPAP o/n despite pressure setting changes to 14/10cwp. Stayed on Airvo 60% o/n. Feels better today. Upright at side of bed.
[2024-11-03 09:56] LABS: Procalcitonin 0.08 ng/mL (<=0.10)
--- NOTE | 2024-11-03 10:34 | PCM.PN.HOSP ---
Reason for Visit Reason for Visit: Diagnoses Acute and chronic respiratory failure with hypoxia (10/30/24) Subjective Subjective Saw patient at bedside this morning. Patient was laying back comfortably in bed in no acute distress. She was breathing comfortably on high flow nasal cannula at rest. Stated that she felt better this morning compared to yesterday. She had worked with speech therapy shortly before I saw her and did very well with this. No other new concerns today. Objective Data Objective Data Vital Signs: Vital Signs Temp Pulse Resp BP Pulse Ox O2 Del Method O2 Flow Rate 98.5 F 69 10 L 157/74 H 99 Airvo 60 11/03/24 09:00 11/03/24 09:00 11/03/24 09:00 11/03/24 09:00 11/03/24 09:00 11/03/24 09:00 11/03/24 09:00 FiO2 40 11/03/24 09:00 Oxygen Flow Rate (L/min) 60 Oxygen Delivery Method Airvo Weight: 95.4 kg Body Mass Index (BMI) 35.9 Intake & Output: Intake and Output for Last 24 Hours 11/01/24 11/02/24 11/03/24 23:59 23:59 23:59 Intake Total 1436.57 / 1536.57 725 / 925 705 / 705 Output Total 1050 / 1550 3150 / 3350 750 / 750 Balance 386.57 / -13.43 -2425 / -2425 -45 / -45 Lab / Micro Data 11/03/24 04:12 11/03/24 04:12 Labs: Laboratory Results - last 24 hr 11/02/24 09:55: Random Vancomycin 15.2 H 11/03/24 04:12: WBC 10.6, RBC 3.86 L, Hgb 11.3 L, Hct 33.4 L, MCV 86.5, MCH 29.3, MCHC 33.8, RDW Std Deviation 48.7 H, RDW Coeff of Joseph 15.5 H, Plt Count 202, MPV 11.1, Sodium 138, Potassium 4.3, Chloride 106, Carbon Dioxide 21.3, Anion Gap 10, BUN 28 H, Creatinine 0.91, Estim Creat Clear Calc 78.27, Est GFR (MDRD) Non-Af 75, BUN/Creatinine Ratio 31.2 H, Glucose 139 H, Calcium 7.9, Procalcitonin 0.08 Micro: Microbiology 11/02/24 09:55 Nasal Secretion MRSA (PCR) - Final 10/30/24 10:00 Blood Culture (Wb) - Left Wrist Blood Culture - Preliminary No growth in 48 hours. 10/30/24 10:00 Blood Culture (Wb) - Anticubital Right Blood Culture - Preliminary No growth in 48 hours. 10/30/24 13:54 Sputum, Induced/Lukens Gram Stain - Final 10/30/24 13:54 Sputum, Induced/Lukens Respiratory Culture - Final 10/30/24 Unknown Urine, Catheterized Urine Culture - Final Culture exhibits no growth. 10/30/24 15:42 Mucosa - Nasopharyngeal Respiratory Panel (PCR) - Final 10/30/24 Unknown Urine Catheter - Lazo Legionella Antigen - Final 10/30/24 Unknown Urine Catheter - Lazo Streptococcus pneumoniae Antigen (M - Final 10/30/24 08:30 Mucosa - Nose SARS-CoV-2, Influenza & RSV (PCR) - Final 10/30/24 08:15 Stool Stool Occult Blood (IGNACIO) - Final Physical Exam Const alert, oriented x3 and no apparent distress Constitutional Narrative: Middle-aged female, fatigued appearing but otherwise sitting back comfortably in bed, conversing normally, in no acute distress. Stable. General Appearance: cooperative and comfortable HEENT normocephalic, head/scalp atraumatic, hearing grossly normal bilaterally, nasal mucous membranes and turbinates normal and moist oral mucous membranes Eyes PERRL, EOMs intact bilaterally and conjunctivae normal Neck full ROM Chest inspection of chest normal Resp normal respiratory effort and no use of accessory muscles Resp Narrative: Breathing comfortably on high flow nasal cannula at rest. Diminished breath sounds throughout on right with crackles noted. Mild diminished breath sounds on left. No wheezing noted. Stable from yesterday. Cardio regular rate, regular rhythm, no murmurs and peripheral pulses 2+ throughout GI normal to inspection, nondistended, normoactive bowel sounds, soft to palpation, non-tender and non-distended Back/Spine normal ROM Extremity normal to inspection, full ROM and no pedal edema Skin no rashes or lesions noted Psych mental status grossly normal Assessment & Plan Assessment/Plan (1) Acute on chronic hypoxic respiratory failure: PLAN: Plan Patient is a 54-year-old female who presented to [facility] ED on 10/30/2024 with worsening shortness of breath. 1. Acute on chronic hypoxic respiratory failure secondary to community-acquired pneumonia versus pneumonitis, improving ? [employer] following. On home 2 to 3 L nasal cannula at rest. Presented with quickly progressive shortness of breath with hypoxia. CTA chest with no PE but did show extensive bilateral infiltrates concerning for pneumonia versus pneumonitis. Respiratory status deteriorated in the ED and she was intubated. Infectious workup negative. Successfully extubated on 11/01. Was weaned to low-flow nasal cannula for short time but had borderline low oxygen saturations and was placed on high flow nasal cannula. Remains on high flow nasal cannula on 11/03. MRSA probe negative, vancomycin discontinued on 11/03. 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 Continue IV steroids at reduced dose of every 12 hours. Continue BiPAP at night and start chest physiotherapy on 11/03. Speech therapy evaluated patient on 11/03 and patient did very well, no dysphagia noted, okay for regular diet. Continue to wean supplemental oxygen as able. Okay for transfer to PCU on 11/03. 2. Elevated troponins with mildly elevated BNP ? Troponin trend 53 > 70 > 125 > 153. BNP 1878. EKG with no ischemic changes noted. Presume secondary to demand ischemia due to above. History of heart failure with recovered EF as below. Will hold on further cardiac workup at this time. 3. Mild creatinine elevation in setting of CKD stage IIIa with mild hyperkalemia, improved ? Creatinine 1.33 on admit, at baseline. Slightly worsened to 1.6 on hospital day 2 and potassium worsened to 5.5. Given IV fluids and improved back to baseline with normalization of potassium on 11/01 with improving urine output. Restarted home Lasix and losartan on 11/01 and tolerating well. 4. Acute debility ? PT/OT/case management following. Patient with some degree of acute weakness in setting of respiratory failure and recent intubation. However has had fairly good therapy scores and is planning for discharge home without therapy once medically ready. Chronic medical conditions: ? Class I obesity: BMI 34 on admit. Complicates hospital course, care and prognosis. ? History of heart failure with recovered ejection fraction, hypertension, hyperlipidemia: Last echo in 12/2023 showed EF 65%, mildly enlarged LA, no other concerning findings noted. Restarted home Coreg, Lasix, hydralazine, losartan and atorvastatin on 613 and tolerating well. ? Anxiety/depression: Continue home sertraline and ziprasidone. ? GERD: Continue home PPI. DVT prophylaxis: Lovenox CODE STATUS: Full code, verified Expected disposition: Home, TBD Total clinical time spent by myself addressing the patient's medical issues, reviewing all the data, and collaborating with patient's care team: 35 minutes. Charges/Coding Visit Charges Inpatient E&M: 14400 Subs Hosp L2
[2024-11-03] MEDS: Furosemide 40 MG Tablet PO (10:54)
[2024-11-03] MEDS: Ziprasidone HCl 20 MG Capsule 60 MG PO (10:54)
[2024-11-03] MEDS: Losartan Potassium 100 MG Tablet PO (10:54)
[2024-11-03] MEDS: Pantoprazole Sodium 40 MG Tablet PO (10:55)
[2024-11-03] MEDS: Sertraline 50 MG Tablet 75 MG PO (10:55)
[2024-11-03] MEDS: Enoxaparin 40 MG/0.4 ML Syringe SC (10:55)
[2024-11-03] MEDS: hydrOXYzine PAM 25 MG Capsule 50 MG PO ×2 (10:56→20:57)
[2024-11-03] MEDS: Acetylcysteine 800 MG/4 ML VIAL.NEB. INHALATION (13:07)
[2024-11-03] MEDS: Ziprasidone HCl 20 MG Capsule 80 MG PO (20:56)
[2024-11-03] MEDS: Atorvastatin Calcium 40 MG Tablet PO (20:56)
[2024-11-04] VITALS (19 sets, daily range): BP systolic 110–176; BP diastolic 57–80; PULSE 50–79; RESP 8–20; TEMP 36–37; O2SAT 92–99; BMI 35.2
[2024-11-04] MEDS: Ipratropium/Albuterol Sulfate 3 ML AMPUL.NEB INHALATION ×4 (00:25→19:21)
[2024-11-04] MEDS: Acetylcysteine 800 MG/4 ML VIAL.NEB. INHALATION ×3 (00:25→13:24)
[2024-11-04 03:28] LABS: Hemoglobin 11.6 g/dL (12.0-15.0); Mean Corp Hgb Conc 34.1 g/dL (32-36); Mean Corpuscular Hgb 28.9 pg (27.0-32.0); Mean Corpuscular Volume 84.8 fL (81-99); Mean Platelet Vol. 10.5 fl (6.2-12.0); Platelet Count 172 K/mm3 (150-450); RBC Distribution Width SD 46.4 fl (35.1-43.9); Red Blood Count 4.01 M/mm3 (4.2-5.4); White Blood Count 10.9 K/mm3 (4.4-11.0)
[2024-11-04 04:12] LABS: Anion Gap 10 (5-15); BUN 31 mg/dL (4-19); BUN/Creat Ratio 33.8 RATIO (10-20); Carbon Dioxide 24.6 mmol/L (21.0-32.0); Chloride 105 mmol/L (98-108); Creatinine, Serum 0.93 mg/dL (0.70-1.20); EST Glomerular Filtration Rate 73 (>60); Estimated Creatinine Clearance 75.85 ml/min (50-250); Glucose 146 mg/dL (70-99); Potassium 3.8 mmol/L (3.3-5.1); Sodium Level 139 mmol/L (133-145)
[2024-11-04] MEDS: hydrALAZINE 50 MG Tablet PO ×3 (05:29→21:38)
--- NOTE | 2024-11-04 07:04 | PCM.PN.INT ---
Assessment & Plan Assessment/Plan (1) Acute on chronic hypoxic respiratory failure: PLAN: Plan RECOMMENDATIONS: 1. Continue to wean supplemental oxygen to maintain saturations at or above 90%. 2. Diuretics as tolerated by hemodynamics and renal function. 3. Continue scheduled bronchodilators and steroids. 4. Aggressive bronchopulmonary hygiene. 5. Encourage incentive spirometer use and mobilize patient as tolerated. 6. Continue appropriate DVT prophylaxis. IMPRESSIONS: 1. Acute on chronic hypoxemic respiratory failure Clinical concern for underlying COPD with exacerbation secondary to pneumonia. The patient was ultimately intubated in the emergency department. With supportive care, including antimicrobials, bronchodilators and steroids, the patient was able to be extubated on November 01. Plan to continue to wean supplemental oxygen to maintain saturations at or above 90%. Continue Lasix as tolerated by hemodynamics and renal function. In light of her history of obstructive sleep apnea, recommend continuing BiPAP therapy with naps and nightly. 2. Sepsis The patient presented with sepsis due to probable pneumonia with acute sepsis related organ dysfunction as evidenced by lactic acidemia and acute respiratory failure requiring invasive mechanical ventilatory support. The patient remains hemodynamically stable, without the need for vasopressor support. 3. Troponin elevation Most likely secondary to demand ischemia in the setting of presenting hypoxemia. Continue supportive measures as noted above. 4. Chronic kidney disease/obesity/obstructive sleep apnea/history of Takotsubo cardiomyopathy/anxiety/depression Complicates care, management, recovery and prognosis. PT/OT to work with the patient. This note was generated with [employer] dictation software. It may contain incorrect words, spelling, and punctuation that were not noted in checking the note before signing. Subjective Subjective The patient was seen and examined at the bedside this morning. Events from the last 24 hours have been reviewed. The patient remains afebrile and hemodynamically stable. White blood cell count is normal. Creatinine is within normal limits. Objective Data Objective Data The patient's most recent lab work, culture data and imaging studies have all been personally reviewed. Strep and urine Legionella antigens were negative. Respiratory viral panel was negative. Infectious workup has been unrevealing to date. Vital Signs: Vital Signs Temp Pulse Resp BP Pulse Ox O2 Del Method O2 Flow Rate 96.8 F L 79 10 L 110/57 L 92 Bi-pap 50 11/04/24 02:00 11/04/24 05:29 11/04/24 03:55 11/04/24 05:10 11/04/24 03:55 11/04/24 03:00 11/03/24 20:38 FiO2 30 11/04/24 03:55 Oxygen Flow Rate (L/min) 50 Oxygen Delivery Method Bi-pap Weight: 206 lb 9.17 oz Body Mass Index (BMI) 35.2 Intake & Output: Intake and Output for Last 24 Hours 11/02/24 11/03/24 11/04/24 23:59 23:59 23:59 Intake Total 725 / 925 905 / 905 Output Total 3150 / 3350 1725 / 1725 400 / 400 Balance -2425 / -2425 -820 / -820 -400 / -400 Lab / Micro Data Attestation: I reviewed the patient's lab results. 11/04/24 03:22 11/04/24 03:22 Labs: Laboratory Results - last 24 hr 11/03/24 04:12: Procalcitonin 0.08 11/04/24 03:22: WBC 10.9, RBC 4.01 L, Hgb 11.6 L, Hct 34.0 L, MCV 84.8, MCH 28.9, MCHC 34.1, RDW Std Deviation 46.4 H, RDW Coeff of Joseph 15.0 H, Plt Count 172, MPV 10.5, Sodium 139, Potassium 3.8, Chloride 105, Carbon Dioxide 24.6, Anion Gap 10, BUN 31 H, Creatinine 0.93, Estim Creat Clear Calc 75.85, Est GFR (MDRD) Non-Af 73, BUN/Creatinine Ratio 33.8 H, Glucose 146 H, Calcium 8.0 Micro: Microbiology 11/02/24 09:55 Nasal Secretion MRSA (PCR) - Final 10/30/24 10:00 Blood Culture (Wb) - Left Wrist Blood Culture - Preliminary No growth in 48 hours. 10/30/24 10:00 Blood Culture (Wb) - Anticubital Right Blood Culture - Preliminary No growth in 48 hours. 10/30/24 13:54 Sputum, Induced/Lukens Gram Stain - Final 10/30/24 13:54 Sputum, Induced/Lukens Respiratory Culture - Final 10/30/24 Unknown Urine, Catheterized Urine Culture - Final Culture exhibits no growth. 10/30/24 15:42 Mucosa - Nasopharyngeal Respiratory Panel (PCR) - Final 10/30/24 Unknown Urine Catheter - Lazo Legionella Antigen - Final 10/30/24 Unknown Urine Catheter - Lazo Streptococcus pneumoniae Antigen (M - Final 10/30/24 08:30 Mucosa - Nose SARS-CoV-2, Influenza & RSV (PCR) - Final 10/30/24 08:15 Stool Stool Occult Blood (IGNACIO) - Final ABG Data ABG results: ABG 10/31/24 08:45 Specimen Type ART Sample Site R Radial pH 7.41 Bicarbonate Actual 19.1 L Total CO2 20 Base Excess -6 L O2 Saturation 99 O2 % 45.0 ABG pCO2 30.3 L ABG pO2 128 H Lester Test N/A Respiration Rate 20 O2 Delivery Device Adult Vent Vent Mode AC Tidal Volume 400.0 POC PEEP 5 Physical Exam Const alert and no apparent distress General Appearance: cooperative HEENT normocephalic, head/scalp atraumatic and moist oral mucous membranes Eyes PERRL, EOMs intact bilaterally and conjunctivae normal Neck supple General: trachea midline Chest inspection of chest normal Resp Auscultation: diminished lung sounds; Negative for rales, rhonchi or wheezes Cardio regular rate and regular rhythm GI normal to inspection, nondistended, normoactive bowel sounds Extremity no clubbing, cyanosis or edema Skin no rashes or lesions noted Neuro CN's II-XII intact bilaterally and no focal motor deficits Psych Mood & Affect: flat affect Charges/Coding Visit Charges Inpatient E&M: 56239 Subs Hosp L2
[2024-11-04] MEDS: Budesonide Respules 0.5 MG/2 ML AMPUL.NEB. INHALATION ×2 (08:02→19:21)
[2024-11-04] MEDS: hydrOXYzine PAM 25 MG Capsule 50 MG PO ×2 (08:23→21:39)
[2024-11-04] MEDS: Ziprasidone HCl 20 MG Capsule 60 MG PO (08:24)
[2024-11-04] MEDS: Furosemide 40 MG Tablet PO (08:24)
[2024-11-04] MEDS: Sertraline 50 MG Tablet 75 MG PO (08:24)
[2024-11-04] MEDS: Losartan Potassium 100 MG Tablet PO (08:24)
[2024-11-04] MEDS: Enoxaparin 40 MG/0.4 ML Syringe SC (08:25)
[2024-11-04] MEDS: Pantoprazole Sodium 40 MG Tablet PO (08:25)
[2024-11-04] MEDS: Carvedilol 12.5 MG Tablet PO (08:25)
--- NOTE | 2024-11-04 17:46 | PCM.PN.HOSP ---
Reason for Visit Reason for Visit: Diagnoses Acute and chronic respiratory failure with hypoxia (10/30/24) Subjective Subjective Patient was seen and examined today, she does not appear short of breath. Patient is currently on 2 L of oxygen which is her home setting. Objective Data Objective Data Vital Signs: Vital Signs Temp Pulse Resp BP Pulse Ox O2 Del Method O2 Flow Rate 97.6 F L 64 13 145/65 H 98 Nasal Cannula 2 11/04/24 14:22 11/04/24 14:22 11/04/24 14:22 11/04/24 14:22 11/04/24 14:22 11/04/24 14:22 11/04/24 14:22 FiO2 30 11/04/24 03:55 Oxygen Flow Rate (L/min) 2 Oxygen Delivery Method Nasal Cannula Weight: 93.7 kg Body Mass Index (BMI) 35.2 Intake & Output: Intake and Output for Last 24 Hours 11/02/24 11/03/24 11/04/24 23:59 23:59 23:59 Intake Total 725 / 925 905 / 905 Output Total 3150 / 3350 1725 / 1725 1750 / 1750 Balance -2425 / -2425 -820 / -820 -1750 / -1750 Lab / Micro Data 11/04/24 03:22 11/04/24 03:22 Labs: Laboratory Results - last 24 hr 11/04/24 03:22: WBC 10.9, RBC 4.01 L, Hgb 11.6 L, Hct 34.0 L, MCV 84.8, MCH 28.9, MCHC 34.1, RDW Std Deviation 46.4 H, RDW Coeff of Joseph 15.0 H, Plt Count 172, MPV 10.5, Sodium 139, Potassium 3.8, Chloride 105, Carbon Dioxide 24.6, Anion Gap 10, BUN 31 H, Creatinine 0.93, Estim Creat Clear Calc 75.85, Est GFR (MDRD) Non-Af 73, BUN/Creatinine Ratio 33.8 H, Glucose 146 H, Calcium 8.0 Micro: Microbiology 10/30/24 10:00 Blood Culture (Wb) - Left Wrist Blood Culture - Final No growth in 5 days. 10/30/24 10:00 Blood Culture (Wb) - Anticubital Right Blood Culture - Final No growth in 5 days. 11/02/24 09:55 Nasal Secretion MRSA (PCR) - Final 10/30/24 13:54 Sputum, Induced/Lukens Gram Stain - Final 10/30/24 13:54 Sputum, Induced/Lukens Respiratory Culture - Final 10/30/24 Unknown Urine, Catheterized Urine Culture - Final Culture exhibits no growth. 10/30/24 15:42 Mucosa - Nasopharyngeal Respiratory Panel (PCR) - Final 10/30/24 Unknown Urine Catheter - Lazo Legionella Antigen - Final 10/30/24 Unknown Urine Catheter - Lazo Streptococcus pneumoniae Antigen (M - Final 10/30/24 08:30 Mucosa - Nose SARS-CoV-2, Influenza & RSV (PCR) - Final 10/30/24 08:15 Stool Stool Occult Blood (IGNACIO) - Final Physical Exam Const alert, oriented x3 and no apparent distress General Appearance: cooperative, well kempt and well developed Orientation / Consciousness: awake, oriented to person, oriented to place and oriented to time HEENT normocephalic, head/scalp atraumatic and moist oral mucous membranes Eyes PERRL, EOMs intact bilaterally and conjunctivae normal Neck supple, no JVD, thyroid normal and no carotid bruits General: trachea midline Resp normal respiratory effort, no retractions, no use of accessory muscles and clear to auscultation bilaterally Auscultation: Negative for rales, rhonchi or wheezes Cardio regular rate, regular rhythm, S1 normal heart sound, S2 normal heart sound, no murmurs, no rub and no gallops GI normal to inspection, nondistended, normoactive bowel sounds, soft to palpation, non-tender and non-distended Extremity no clubbing, cyanosis or edema Skin no rashes or lesions noted General Skin Exam: no breakdown Neuro oriented x3, CN's II-XII intact bilaterally, moves all extremities, no focal motor deficits and no sensory deficits noted Sensorium / Orientation: awake and alert Speech: speech normal Psych affect normal Assessment & Plan Assessment/Plan (1) Acute on chronic hypoxic respiratory failure: PLAN: Plan 1. Acute on chronic hypoxemic respiratory failure secondary to exacerbation of COPD-patient is currently on her home oxygen setting at this time, continue bronchodilators and prednisone. #2 sepsis secondary to pneumonia-patient's antibiotics were completed #3 demand ischemia from hypoxia-no further workup #4 bipolar disorder-patient remains on Geodon #5 acute kidney injury-patient's creatinine today was 0.93 Patient did not have a type II myocardial infarction. Total clinical time spent by myself addressing the patient's medical issues, reviewing all of her medications, and collaborating the patient's care team: 35 minutes Charges/Coding Visit Charges Inpatient E&M: 40685 Subs Hosp L2
--- NOTE | 2024-11-04 21:13 | CPS ---
Patient refused mucomyst treatment and percussor at this time. Patient's breath sounds clear.
[2024-11-04] MEDS: Ziprasidone HCl 20 MG Capsule 80 MG PO (21:38)
[2024-11-04] MEDS: Atorvastatin Calcium 40 MG Tablet PO (21:39)
[2024-11-05] VITALS (10 sets, daily range): BP systolic 110–131; BP diastolic 52–61; PULSE 50–62; RESP 12–18; TEMP 36.4–37.1; O2SAT 94–99
[2024-11-05] MEDS: hydrALAZINE 50 MG Tablet PO (05:41)
[2024-11-05] MEDS: Ipratropium/Albuterol Sulfate 3 ML AMPUL.NEB INHALATION ×2 (06:54→12:54)
[2024-11-05] MEDS: Budesonide Respules 0.5 MG/2 ML AMPUL.NEB. INHALATION (06:54)
--- NOTE | 2024-11-05 06:56 | CPS ---
patient currently refusing percussor and mucomyst
--- NOTE | 2024-11-05 07:09 | PN.CC_ITS ---
Assessment & Plan Assessment/Plan (1) Acute on chronic hypoxic respiratory failure: PLAN: Plan RECOMMENDATIONS: 1. Continue to wean supplemental oxygen to maintain saturations at or above 90%. 2. Diuretics as tolerated by hemodynamics and renal function. 3. Continue scheduled bronchodilators and steroids. Plan for prednisone 40 mg daily x 5 days at discharge. 4. Aggressive bronchopulmonary hygiene. Okay to discontinue Mucomyst. 5. Encourage incentive spirometer use and mobilize patient as tolerated. 6. Continue appropriate DVT prophylaxis. 7. Will sign off at this time. Please call with any additional questions. IMPRESSIONS: 1. Acute on chronic hypoxemic respiratory failure Clinical concern for underlying COPD with exacerbation secondary to pneumonia. The patient was ultimately intubated in the emergency department. With supportive care, including antimicrobials, bronchodilators and steroids, the patient was able to be extubated on November 01. Plan to continue to wean supplemental oxygen to maintain saturations at or above 90%. Continue Lasix as tolerated by hemodynamics and renal function. In light of her history of obstructive sleep apnea, recommend continuing BiPAP therapy with naps and nightly. 2. Sepsis The patient presented with sepsis due to probable pneumonia with acute sepsis related organ dysfunction as evidenced by lactic acidemia and acute respiratory failure requiring invasive mechanical ventilatory support. The patient remains hemodynamically stable, without the need for vasopressor support. 3. Troponin elevation Most likely secondary to demand ischemia in the setting of presenting hypoxemia. Continue supportive measures as noted above. 4. Chronic kidney disease/obesity/obstructive sleep apnea/history of Takotsubo cardiomyopathy/anxiety/depression Complicates care, management, recovery and prognosis. PT/OT to work with the patient. This note was generated with [employer] dictation software. It may contain incorrect words, spelling, and punctuation that were not noted in checking the note before signing. Subjective Subjective The patient was seen and examined at the bedside this morning. Events from the last 24 hours have been reviewed. The patient is currently afebrile, hemodynamically stable and maintaining appropriate oxygen saturations on 2 L/min via nasal cannula. The patient was compliant with PAP therapy overnight. White blood cell count remains normal. Creatinine is within normal limits. Objective Data Objective Data The patient's most recent lab work, culture data and imaging studies have all been personally reviewed. Strep and urine Legionella antigens were negative. Respiratory viral panel was negative. Infectious workup has been unrevealing to date. Vital Signs: Vital Signs Temp Pulse Resp BP Pulse Ox O2 Del Method O2 Flow Rate 98.0 F 59 L 18 131/61 H 94 Nasal Cannula 2 11/05/24 03:20 11/05/24 06:55 11/05/24 06:55 11/05/24 05:41 11/05/24 06:55 11/05/24 06:55 11/05/24 06:55 FiO2 30 11/05/24 04:49 Oxygen Flow Rate (L/min) 2 Oxygen Delivery Method Nasal Cannula Weight: 206 lb 9.17 oz Body Mass Index (BMI) 35.2 Intake & Output: Intake and Output for Last 24 Hours 11/03/24 11/04/24 11/05/24 23:59 23:59 23:59 Intake Total 905 / 905 Output Total 1725 / 1725 3000 / 3400 400 / 400 Balance -820 / -820 -3000 / -3400 -400 / -400 Lab / Micro Data Attestation: I reviewed the patient's lab results. 11/04/24 03:22 11/04/24 03:22 Labs: Laboratory Results - last 24 hr 11/03/24 04:12: Procalcitonin 0.08 11/04/24 03:22: WBC 10.9, RBC 4.01 L, Hgb 11.6 L, Hct 34.0 L, MCV 84.8, MCH 28.9, MCHC 34.1, RDW Std Deviation 46.4 H, RDW Coeff of Joseph 15.0 H, Plt Count 172, MPV 10.5, Sodium 139, Potassium 3.8, Chloride 105, Carbon Dioxide 24.6, Anion Gap 10, BUN 31 H, Creatinine 0.93, Estim Creat Clear Calc 75.85, Est GFR (MDRD) Non-Af 73, BUN/Creatinine Ratio 33.8 H, Glucose 146 H, Calcium 8.0 Micro: Microbiology 10/30/24 10:00 Blood Culture (Wb) - Left Wrist Blood Culture - Final No growth in 5 days. 10/30/24 10:00 Blood Culture (Wb) - Anticubital Right Blood Culture - Final No growth in 5 days. 11/02/24 09:55 Nasal Secretion MRSA (PCR) - Final 10/30/24 13:54 Sputum, Induced/Lukens Gram Stain - Final 10/30/24 13:54 Sputum, Induced/Lukens Respiratory Culture - Final 10/30/24 Unknown Urine, Catheterized Urine Culture - Final Culture exhibits no growth. 10/30/24 15:42 Mucosa - Nasopharyngeal Respiratory Panel (PCR) - Final 10/30/24 Unknown Urine Catheter - Lazo Legionella Antigen - Final 10/30/24 Unknown Urine Catheter - Lazo Streptococcus pneumoniae Antigen (M - Final 10/30/24 08:30 Mucosa - Nose SARS-CoV-2, Influenza & RSV (PCR) - Final 10/30/24 08:15 Stool Stool Occult Blood (IGNACIO) - Final ABG Data ABG results: ABG 10/31/24 08:45 Specimen Type ART Sample Site R Radial pH 7.41 Bicarbonate Actual 19.1 L Total CO2 20 Base Excess -6 L O2 Saturation 99 O2 % 45.0 ABG pCO2 30.3 L ABG pO2 128 H Lester Test N/A Respiration Rate 20 O2 Delivery Device Adult Vent Vent Mode AC Tidal Volume 400.0 POC PEEP 5 Physical Exam Const alert and no apparent distress General Appearance: cooperative HEENT normocephalic, head/scalp atraumatic and moist oral mucous membranes Eyes PERRL, EOMs intact bilaterally and conjunctivae normal Neck supple General: trachea midline Chest inspection of chest normal Resp Auscultation: diminished lung sounds; Negative for rales, rhonchi or wheezes Cardio regular rate and regular rhythm GI normal to inspection, nondistended, normoactive bowel sounds Extremity no clubbing, cyanosis or edema Skin no rashes or lesions noted Neuro CN's II-XII intact bilaterally and no focal motor deficits Psych Mood & Affect: flat affect Charges/Coding Visit Charges Inpatient E&M: 41583 Subs Hosp L2
[2024-11-05] MEDS: Pantoprazole Sodium 40 MG Tablet PO (08:30)
[2024-11-05] MEDS: hydrOXYzine PAM 25 MG Capsule 50 MG PO (08:30)
[2024-11-05] MEDS: predniSONE 20 MG Tablet 40 MG PO (08:31)
[2024-11-05] MEDS: Losartan Potassium 100 MG Tablet PO (08:31)
[2024-11-05] MEDS: Enoxaparin 40 MG/0.4 ML Syringe SC (08:31)
[2024-11-05] MEDS: Furosemide 40 MG Tablet PO (08:31)
[2024-11-05] MEDS: Sertraline 50 MG Tablet 75 MG PO (08:32)
[2024-11-05] MEDS: Ziprasidone HCl 20 MG Capsule 60 MG PO (08:32)
[2024-11-05] MEDS: Carvedilol 12.5 MG Tablet PO (08:32)
--- NOTE | 2024-11-05 12:37 | CASEMGMT ---
Addendum entered by Cliff Dorado 11/05/24 13:54: Discharge order is in. HENRY العراقي to room. Pt resting in bed. She denies having any discharge needs or concerns. She is aware Rx has been sent to [facility]. Her BF will be taking her home today and he will be bringing in her portable O2 tank to go home on, so she does not need O2 tank from [employer] stock. Mansoor JAY RN, CM Original Note: HENRY العراقي NOTE: Home O2 amb testing has been completed. Pt does not qualify for any increase in her home O2. Mansoor JAY RN, CM
--- NOTE | 2024-11-05 12:49 | DCINST_ITS ---
Discharge Instructions Diet Discharge Diet: No restrictions DC O2, CPAP, BIPAP needs Home O2 Discharge instructions: Yes Type of respiratory needs?: Oxygen Oxygen frequency: Continuous Continuous oxygen liters per minute: 2 L and With Ambulation Oxygen liters per minute during Ambulation: 2 L Dressing / Incision Discharge Activity: Return to Normal Activity Weight Bearing Status: Full weight bearing Follow Up Care Test Results: Test results from this visit will be discussed in further detail at your follow- up appointment, if applicable. Discharge Plan Admission Admit Date/Time: 10/30/24 13:34 Primary Reason for Your Visit: Respiratory failure Attending Provider: Kd Balderrama Primary Care Provider: Susy Funez Consulting Providers: Uriel Jara Discharge Orders/Prescriptions Prescriptions: New prednisone 20 mg Tablet 40 mg PO BREAKFAST Qty: 10 0RF Rx Instructions: 2 daily for 5 days Continued albuterol sulfate 1 INHALER inhaler 2 puff inhalation Q6H PRN (Reason: COPD) atorvastatin 40 mg tablet 40 mg PO QHS omeprazole 40 mg capsule,delayed release(DR/EC) 40 mg PO DAILY ziprasidone HCl 80 mg capsule 80 mg PO QHS sertraline 50 mg tablet 75 mg PO DAILY fluticasone propion-salmeterol 100-50 mcg/dose blister with device 1 ea INHALATION BID furosemide 40 mg tablet 40 mg PO DAILY Qty: 60 3RF ziprasidone HCl 60 mg capsule 60 mg PO DAILY losartan 100 mg tablet 100 mg PO DAILY carvedilol 12.5 mg Tablet 12.5 mg PO BIDCM 30 Days Qty: 60 2RF ipratropium-albuterol 0.5 mg-3 mg(2.5 mg base)/3 mL Solution For Nebulization 3 ml inhalation Q6HWA.RT PRN (Reason: sob) 30 Days Qty: 90 0RF hydralazine 50 mg Tablet 50 mg PO TID 30 Days Qty: 90 0RF hydroxyzine pamoate 100 mg capsule 50 mg PO BID 3 Days Qty: 0 0RF meloxicam 15 mg tablet 15 mg PO DAILY Referrals / Follow Up: Susy Funez MD [Primary Care Provider] - Within 2 Weeks Disposition Disposition (needs filled in before D/C Order can be placed): Home, Self Care
--- NOTE | 2024-11-05 12:59 | DS.PCM_ITS ---
Providers Date of Admission: 10/30/24 Date of Discharge: 11/05/24 Primary Care Physician: Dr. Susy Funez MD Consultations 10/30/24 15:21 Consult: Cdc Associate / Pulmonary Medicine Routine Consulting Provider: Intensivists/Pulmonary Med Reason for Consult: acute resp failure EMERGENT Consult: Yes MD Notified: Yes Date Notified: 10/30/24 Time Notified: 13:37 Method of Notification: Text Reason For Visit: ACUTE HYPOXIC RESP FAILURE Diagnosis Discharge Diagnosis (1) Acute on chronic hypoxic respiratory failure: Status: Chronic Code(s): J96.21 - Acute and chronic respiratory failure with hypoxia Plan 1. Acute on chronic hypoxemic respiratory failure secondary to exacerbation of COPD-patient is currently on her home oxygen setting at this time, continue bronchodilators and prednisone. #2 sepsis secondary to pneumonia-patient's antibiotics were completed #3 demand ischemia from hypoxia-no further workup #4 bipolar disorder-patient remains on Geodon #5 acute kidney injury-patient's creatinine today was 0.93 Patient did not have a type II myocardial infarction. Total clinical time spent by myself addressing the patient's medical issues, reviewing all of her medications, and collaborating the patient's care team: 35 minutes Medications at Discharge Home Medications albuterol sulfate 90 mcg/actuation aerosol inhaler 2 puff inhalation Q6H PRN COPD 02/02/19 atorvastatin 40 mg tablet 40 mg PO QHS cholesterol 11/07/23 omeprazole 40 mg capsule,delayed release 40 mg PO DAILY GERD 11/07/23 sertraline 50 mg tablet 75 mg PO DAILY Mood 11/07/23 ziprasidone HCl 80 mg capsule 80 mg PO QHS antipsychotic 11/07/23 fluticasone 100 mcg-salmeterol 50 mcg/dose blistr powdr for inhalation 1 ea inhalation BID allergies 01/10/24 furosemide 40 mg tablet 40 mg PO DAILY edema #60 tabs 05/26/24 losartan 100 mg tablet 100 mg PO DAILY bp 06/22/24 ziprasidone HCl 60 mg capsule 60 mg PO DAILY bipolar 06/22/24 carvedilol 12.5 mg tablet 12.5 mg PO BIDCM 30 days #60 tabs 06/25/24 hydralazine 50 mg tablet 50 mg PO TID 30 days #90 tabs 06/25/24 hydroxyzine pamoate 100 mg capsule 50 mg (1/2 x 100 mg) PO BID Anxiety 3 days #0 caps 06/25/24 ipratropium 0.5 mg-albuterol 3 mg (2.5 mg base)/3 mL nebulization soln 3 ml inhalation Q6HWA.RT PRN sob 1 month #90 mL 06/25/24 meloxicam 15 mg tablet 15 mg PO DAILY pain 11/01/24 prednisone 20 mg tablet 40 mg (2 x 20 mg) PO BREAKFAST #10 tabs 11/05/24 Hospital Course Operations None Summary of Care Provided Minutes Spent on Discharge: 32 Hospital Course: This 54-year-old white female was seen in the emergency room at [facility] with complaints of shortness of breath, on EMS arrival, patient's pulse ox was 82% on room air with cyanosis. Patient was given Solu- Medrol IV in the ER along with aerosol treatments and a normal saline bolus, labs showed a leukocytosis of 15.6, lactic acid was elevated at 7.2, broad- spectrum antibiotics were administered with cefepime and vancomycin. CTA of the chest was ordered and a CT of the abdomen and pelvis was ordered. Patient initially was doing well on nasal cannula ABG was obtained which showed a pH of 7.39 without hypercapnia beta natruretic peptide was elevated at 1878 and troponin was elevated at 70. After arriving back from imaging studies, patient's respiratory status worsened and she exhibited increased work of breathing and worsening hypoxia. Patient was placed on BiPAP and ultimately, due to increasing respiratory embarrassment, was intubated. CTA of the chest showed airspace disease in the right hemithorax superimposed on increased interstitial markings specially in the right lung with small right pleural effusion and minimal fluid in the right major fissure. CT of the abdomen and pelvis showed inflammatory changes in the left hemicolon, diffuse pancreatic atrophy, questionable tiny gallstone in the neck of the gallbladder, and airspace disease in the right lower lobe. Patient was transferred to the ICU, antibiotics were continued and she was seen in consultation by critical care. Patient improved over the next several days and was ultimately extubated and moved from the ICU to PCU where she continued to do well. On 11/05/2024, patient was seen and examined: On examination she appeared in good health and spirits, she does not appear to be in any distress. Vital signs as documented. Skin warm and dry and without overt rashes. Neck without JVD, thyroid appears normal, trachea is midline, neck is supple. Lungs clear, normal air movement was noted. Heart exam notable for regular rhythm, normal sounds and absence of murmurs, rubs or gallops. Abdomen unremarkable and without evidence of organomegaly, masses, or abdominal aortic enlargement, bowel sounds are present in all 4 quadrants, no abdominal tenderness was noted. Extremities nonedematous, no cyanosis was noted, no clubbing was noted. Neuro: Cranial nerves II through XII are grossly intact, no focal motor deficits were noted, sensation to light touch and pinprick is intact, motor exam 5/5 throughout. Psych: Patient is alert and oriented x3, she does not appear anxious or depressed, she does not appear agitated. Patient appears stable for discharge home on 11/05/2024, she required 2 L of oxygen at rest and while ambulating at the time of discharge home. Weight / BMI Weight Weight: 93.7 kg Body Mass Index (BMI) 35.2 ABG / Lab / Microbiology Data 11/04/24 03:22 11/04/24 03:22 Microbiology: Microbiology 10/30/24 10:00 Blood Culture (Wb) - Left Wrist Blood Culture - Final No growth in 5 days. 10/30/24 10:00 Blood Culture (Wb) - Anticubital Right Blood Culture - Final No growth in 5 days. 11/02/24 09:55 Nasal Secretion MRSA (PCR) - Final 10/30/24 13:54 Sputum, Induced/Lukens Gram Stain - Final 10/30/24 13:54 Sputum, Induced/Lukens Respiratory Culture - Final 10/30/24 Unknown Urine, Catheterized Urine Culture - Final Culture exhibits no growth. 10/30/24 15:42 Mucosa - Nasopharyngeal Respiratory Panel (PCR) - Final 10/30/24 Unknown Urine Catheter - Lazo Legionella Antigen - Final 10/30/24 Unknown Urine Catheter - Lazo Streptococcus pneumoniae Antigen (M - Final 10/30/24 08:30 Mucosa - Nose SARS-CoV-2, Influenza & RSV (PCR) - Final 10/30/24 08:15 Stool Stool Occult Blood (IGNACIO) - Final D/C Instructions Discharge Diet: No restrictions Weight Bearing Status: Full weight bearing DC O2, CPAP, BIPAP Needs Home O2 Discharge instructions: Yes Type of respiratory needs?: Oxygen Oxygen frequency: Continuous Continuous oxygen liters per minute: 2 L and With Ambulation Oxygen liters per minute during Ambulation: 2 L DC home with Oxygen: Yes Home O2 MD Review: I have reviewed the oxygen testing, and the patient qualifies for home oxygen equipment and portability. The patient is mobile in the home and the community. Meaningful Use Info Meaningful Use Meaningful Use Diagnoses (Choose all that apply): None applicable Ischemic Stroke Statin Dosing Therapy Reference: STATIN DOSE THERAPY REFERENCE: * Patients > 75 years receive moderate or high dose statin therapy. * Patients 75 years or YOUNGER should receive HIGH intensity statin dose unless contraindicated. You will be required to document reason for non-treatment if statin daily dose does not meet guidelines. HIGH DOSE STATIN THERAPY DAILY Atorvastatin > than or = to 40 mg Rosuvastatin > than or = to 20 mg Amlodipine + Atorvastatin > than or = to 2.5/40 mg Ezetimibe + Simvastatin 10/80 mg Simvastatin 80mg Discharge Plan Admission Admit Date/Time: 10/30/24 13:34 Primary Reason for Your Visit: Respiratory failure Attending Provider: Kd Balderrama Primary Care Provider: Susy Funez Consulting Providers: Uriel Jara Discharge Orders/Prescriptions Prescriptions: New prednisone 20 mg Tablet 40 mg PO BREAKFAST Qty: 10 0RF Rx Instructions: 2 daily for 5 days Continued albuterol sulfate 1 INHALER inhaler 2 puff inhalation Q6H PRN (Reason: COPD) atorvastatin 40 mg tablet 40 mg PO QHS omeprazole 40 mg capsule,delayed release(DR/EC) 40 mg PO DAILY ziprasidone HCl 80 mg capsule 80 mg PO QHS sertraline 50 mg tablet 75 mg PO DAILY fluticasone propion-salmeterol 100-50 mcg/dose blister with device 1 ea INHALATION BID furosemide 40 mg tablet 40 mg PO DAILY Qty: 60 3RF ziprasidone HCl 60 mg capsule 60 mg PO DAILY losartan 100 mg tablet 100 mg PO DAILY carvedilol 12.5 mg Tablet 12.5 mg PO BIDCM 30 Days Qty: 60 2RF ipratropium-albuterol 0.5 mg-3 mg(2.5 mg base)/3 mL Solution For Nebulization 3 ml inhalation Q6HWA.RT PRN (Reason: sob) 30 Days Qty: 90 0RF hydralazine 50 mg Tablet 50 mg PO TID 30 Days Qty: 90 0RF hydroxyzine pamoate 100 mg capsule 50 mg PO BID 3 Days Qty: 0 0RF meloxicam 15 mg tablet 15 mg PO DAILY Referrals / Follow Up: Susy Funez MD [Primary Care Provider] - Within 2 Weeks Disposition Disposition (needs filled in before D/C Order can be placed): Home, Self Care Charges/Coding Visit Charges Inpatient E&M: 96497 Disch Hosp >30min
--- NOTE | 2024-11-05 14:57 | PHA.DC.MR.R ---
Pharmacy [place] Med Reconciliation Pharmacy Service has performed discharge medication reconciliation for this patient. Medication education papers prepared, patient discharged when counseling was attempted. Medications reviewed. The patient's discharge medication list was reviewed for discrepancies and discrepancies were resolved. Medications at Discharge Home Medications albuterol sulfate 90 mcg/actuation aerosol inhaler 2 puff inhalation Q6H PRN COPD 02/02/19 atorvastatin 40 mg tablet 40 mg PO QHS cholesterol 11/07/23 omeprazole 40 mg capsule,delayed release 40 mg PO DAILY GERD 11/07/23 sertraline 50 mg tablet 75 mg PO DAILY Mood 11/07/23 ziprasidone HCl 80 mg capsule 80 mg PO QHS antipsychotic 11/07/23 fluticasone 100 mcg-salmeterol 50 mcg/dose blistr powdr for inhalation 1 ea inhalation BID allergies 01/10/24 furosemide 40 mg tablet 40 mg PO DAILY edema #60 tabs 05/26/24 losartan 100 mg tablet 100 mg PO DAILY bp 06/22/24 ziprasidone HCl 60 mg capsule 60 mg PO DAILY bipolar 06/22/24 carvedilol 12.5 mg tablet 12.5 mg PO BIDCM 30 days #60 tabs 06/25/24 hydralazine 50 mg tablet 50 mg PO TID 30 days #90 tabs 06/25/24 hydroxyzine pamoate 100 mg capsule 50 mg (1/2 x 100 mg) PO BID Anxiety 3 days #0 caps 06/25/24 ipratropium 0.5 mg-albuterol 3 mg (2.5 mg base)/3 mL nebulization soln 3 ml inhalation Q6HWA.RT PRN sob 1 month #90 mL 06/25/24 meloxicam 15 mg tablet 15 mg PO DAILY pain 11/01/24 prednisone 20 mg tablet 40 mg (2 x 20 mg) PO BREAKFAST #10 tabs 11/05/24
== END 2024-11-05 14:49 | disposition home or self-care (01) | DRG 871 ==
LOC: ED 13:33 → ICU 14:23 → PCU 11-04 20:19
PROVIDERS: Internal Medicine Critical Care Medicine; Admitting Provider Hospitalist; Emergency Provider Surgery; PCP Internal Medicine; Visit Provider Internal Medicine
DX: A41.9 Sepsis, unspecified organism (principal); J18.9 Pneumonia, unspecified organism; J80 Acute respiratory distress syndrome; E87.20 Acidosis, unspecified; I24.89 Other forms of acute ischemic heart disease; R04.2 Hemoptysis; I13.0 Hypertensive heart and chronic kidney disease with heart failure and stage 1 through stage 4 chronic kidney disease, or unspecified chronic kidney disease; J44.0 Chronic obstructive pulmonary disease with (acute) lower respiratory infection; I50.32 Chronic diastolic (congestive) heart failure; J44.1 Chronic obstructive pulmonary disease with (acute) exacerbation; N17.9 Acute kidney failure, unspecified; K86.89 Other specified diseases of pancreas; F31.9 Bipolar disorder, unspecified; N18.31 Chronic kidney disease, stage 3a; Z68.34 Body mass index [BMI] 34.0-34.9, adult; F41.9 Anxiety disorder, unspecified; E78.5 Hyperlipidemia, unspecified; K21.9 Gastro-esophageal reflux disease without esophagitis; G47.33 Obstructive sleep apnea (adult) (pediatric); E87.5 Hyperkalemia; Z82.49 Family history of ischemic heart disease and other diseases of the circulatory system; Z11.52 Encounter for screening for COVID-19; Z87.891 Personal history of nicotine dependence; Z90.710 Acquired absence of both cervix and uterus; E66.811 Obesity, class 1; R53.81 Other malaise; Z79.1 Long term (current) use of non-steroidal anti-inflammatories (NSAID); Z79.891 Long term (current) use of opiate analgesic; Z79.52 Long term (current) use of systemic steroids
CPT/HCPCS: 31500; 31720; 36415; 36600; 71045; 71046; 71275; 74177; 80048; 80053; 80202; 81001; 82274; 82550; 82803; 82962; 83605; 83880; 84145; 84478; 84484; 85025; 85027; 85379; 85610; 85730; 87040; 87070; 87086; 87205; 87449; 87631; 87633; 87641; 92610; 93005; 94002; 94003; 94640; 94660; 94667; 94668; 94762; 97110; 97162; 97166; 97530; 97535; 97802; 99252; 99285; J2185; Q9967; A4216; G0463; J0330

== ENCOUNTER 2025-02-03 08:01 | Inpatient (IN) | payer MEDICARE, MEDICAID, SELFPAY ==
[2025-02-03] VITALS (31 sets, daily range): BP systolic 101–154; BP diastolic 55–118; PULSE 72–145; RESP 10–28; TEMP 35.8–37; O2SAT 88–100; BMI 26.4
--- NOTE | 2025-02-03 08:20 | EKG12_ITS ---
Test Reason : SOB Blood Pressure : */* mmHG Vent. Rate : 82 BPM Atrial Rate : 82 BPM P-R Int : 164 ms QRS Dur : 96 ms QT Int : 390 ms P-R-T Axes : 47 30 69 degrees QTcB Int : 455 ms Normal sinus rhythm Possible Left atrial enlargement Borderline ECG Confirmed by Josh Burton [id number]), editor in chief MARYBETH GALICIA ([id number]) on 02/04/2025 11:55:43 AM Referred By: Confirmed By: Josh Burton
--- NOTE | 2025-02-03 08:30 | EDS_ITS ---
HPI History of Present Illness Chief Complaint: Shortness of Breath Narrative Narrative: Chief complaint and HPI: 54-year-old female with past medical history of HTN, HLD, Takotsubo's cardiomyopathy, COPD, chronic hypoxia intermittently on oxygen presents for evaluation of shortness of breath. Onset of symptoms this morning. Patient states that she was asymptomatic yesterday. She states she occasionally wears 2 L of oxygen at home via nasal cannula. States she is supposed to wear BiPAP while sleeping however has not worn it in a year. She denies any fever, chills, URI symptoms chest pain, abdominal pain, nausea, vomiting, dysuria. Per EMS, patient was 84% on 3 L. Was placed on a 15 L nonrebreather with improvement in saturations. Did receive 125 mg IM Solu- Medrol as well as 1 DuoNeb prior to arrival. Review of systems: See HPI Medications: As listed on the chart Allergies: As listed on the chart PFSH: Per chart Vital signs: As listed on the chart. Reviewed. Physical exam: Gen: Fatigued but O x3 Head: Normocephalic, atraumatic Eyes: No sclera icterus, conjunctiva clear, PERRL ENT: Moist mucous membranes Neck: Trachea midline, No JVD CV: Tachycardic, regular rhythm, no murmurs, no peripheral edema Resp: Lungs diminished in the bilateral bases, expiratory wheezing, tachypneic, on 5 L nasal cannula at 88% GI: Abd soft, non-distended, non-tender, no r/r/g Musc: Full ROM, no deformity Skin: Warm, dry, pale/dusky Neuro: Grossly intact, sensation intact Psych: Cooperative, appropriate mood and affect [facility] Medical History Shock Elevated troponin Transaminitis Non-ST elevation VA (NSTEMI) Pneumonia Takotsubo cardiomyopathy Bipolar disorder Anxiety Depression Osteoarthritis Kidney stones Hx of gastroesophageal reflux (GERD) Smoker BiPAP (biphasic positive airway pressure) dependence Asthma Myocardial infarct Chest pain Stroke/cerebrovascular accident Migraines Seizures Ulcerative colitis Hypertension COPD (chronic obstructive pulmonary disease) Home Medications ?Medication ?Instructions ?Recorded ?Last Taken ?Type albuterol sulfate 90 mcg/actuation 2 puff inhalation Q 6H PRN COPD 02/02/19 01/09/24 History aerosol inhaler atorvastatin 40 mg tablet 40 mg PO QHS cholesterol 10/30/24 History omeprazole 40 mg capsule,delayed 40 mg PO DAILY GERD 0 11/07/23 10/30/24 History release sertraline 50 mg tablet 75 mg PO DAILY Mood 11/07/23 06/21/24 History ziprasidone HCl 80 mg capsule 80 mg PO QHS antipsychot ic 11/07/23 06/21/24 History fluticasone 100 mcg-salmeterol 50 1 ea inhalation BID allergies 01/10/24 06/21/24 History mcg/dose blistr powdr for inhalation furosemide 40 mg tablet 40 mg PO DAILY edema #60 tab s 05/26/24 10/30/24 Rx losartan 100 mg tablet 100 mg PO DAILY bp 06/22/24 10/30/24 History ziprasidone HCl 60 mg capsule 60 mg PO DAILY bipolar 0 06/22/24 06/21/24 History carvedilol 12.5 mg tablet 12.5 mg PO BIDCM 30 days #60 tabs 06/25/24 10/30/24 Rx hydralazine 50 mg tablet 50 mg PO TID 30 days #90 tab s 06/25/24 10/30/24 Rx hydroxyzine pamoate 100 mg capsule 50 mg (1/2 x 100 mg ) PO BID 06/25/24 10/30/24 Rx Anxiety 3 days #0 caps ipratropium 0.5 mg-albuterol 3 mg 3 ml inhalation Q6HW A.RT PRN sob 1 06/25/24 Unknown Rx (2.5 mg base)/3 mL nebulization month #90 mL soln meloxicam 15 mg tablet 15 mg PO DAILY pain 11/01/24 Unknown History prednisone 20 mg tablet 40 mg (2 x 20 mg) PO BREAKFA ST #10 11/05/24 Unknown Rx tabs Allergy/AdvReac Type Severity Reaction Status Date / Time meperidine (From Demerol) Allergy Other Verified 10/30/24 07:49 metronidazole (From Flagyl) Allergy Hives Verified 10/30/24 07:49 oxycodone (From Percocet) Allergy Hives Verified 10/30/24 07:49 Penicillins Allergy Hives Verified 10/30/24 07:49 aspirin AdvReac Vomiting Verified 10/30/24 07:49 Family History Mother Myocardial infarction Cancer Brother Myocardial infarction Surgical History History of left heart catheterization (~10/2023) Hx of hysterectomy History of appendectomy Social History Smoking Status: Former smoker how long ago did patient quit smoking: Quit 2 weeks ago per patient report on 01/12/2024 alcohol intake: never substance use type: does not use caffeine: Yes (occasionally) EXAM Physical Exam Const Vital Signs: 02/03/25 08:02 02/03/25 08:02 02/03/25 08:05 Temperature 97.6 F L Temperature Source Oral Pulse Rate 118 H 115 H 102 H Respiratory Rate 18 23 H 18 Respiratory Effort Respiratory Depth Respiratory Pattern Normal Blood Pressure 154/105 H Blood Pressure Mean 121 Pulse Ox 98 96 98 Oxygen Delivery Method Non-Rebreather Nasal Cannula Oxygen Flow Rate (L/min) 5 Fraction of Inspired Oxygen (FIO2) 50 02/03/25 08:09 02/03/25 09:00 02/03/25 09:20 Temperature Temperature Source Pulse Rate 94 72 Respiratory Rate 18 18 Respiratory Effort Short of Breath Respiratory Depth Shallow Respiratory Pattern Tachypnea Normal Normal Blood Pressure Blood Pressure Mean Pulse Ox 98 Oxygen Delivery Method Nasal Cannula Oxygen Flow Rate (L/min) 5 Fraction of Inspired Oxygen (FIO2) 50 02/03/25 09:20 02/03/25 09:34 02/03/25 10:00 Temperature 98.3 F 98.6 F Temperature Source Temporal Oral Pulse Rate 78 81 Respiratory Rate 12 12 Respiratory Effort Respiratory Depth Respiratory Pattern Blood Pressure 101/69 111/73 Blood Pressure Mean 79 85 Pulse Ox 98 97 96 Oxygen Delivery Method Nasal Cannula Nasal Cannula Nasal Cannula Oxygen Flow Rate (L/min) 4 4 Fraction of Inspired Oxygen (FIO2) MDM MDM MDM Narrative Medical decision making narrative: 54-year-old female with past medical history of HTN, HLD, Takotsubo's cardiomyopathy, COPD, chronic hypoxia intermittently on oxygen presents for evaluation of shortness of breath. Onset of symptoms this morning. Patient states that she was asymptomatic yesterday. She states she occasionally wears 2 L of oxygen at home via nasal cannula. States she is supposed to wear BiPAP while sleeping however has not worn it in a year. Per EMS, patient was 84% on 3 L. Was placed on a 15 L nonrebreather with improvement in saturations. Did receive 125 mg IM Solu-Medrol as well as 1 DuoNeb prior to arrival. When I saw the patient, she was on 5 L nasal cannula at 88%. She is oriented x 3 but fatigued. Diffuse expiratory wheezing. Differential diagnosis includes but is not limited to acute on chronic hypoxia, hypercapnia, COPD exacerbation, pneumonia, CHF exacerbation. Patient already received Solu-Medrol. NS bolus and DuoNebs ordered. Will place on BiPAP. On chart review, I saw the patient in October for same complaint. At that time she required intubation for declining respiratory status. She was sepsis secondary to pneumonia with pulmonary edema and type II demand ischemia. CBC showed mild leukocytosis of 13.3. No anemia. Platelets unremarkable. Patient has elevated creatinine at 1.24. Previous creatinine 0.93 on 11/04. This is either RUFINA versus renal insufficiency. Gluc ose 235. Troponin 18. Will obtain delta. Patient not endorsing any chest pain. No transaminitis. COVID, flu, RSV negative. BNP unremarkable. Patient's lactic acid is 6.4. I suspect that her lactic acid elevation is secondary more to hypoxia then infection. Chest x-ray was personally reviewed interpreted by me, ED physician. Chest x-ray looks similar to previous chest x- ray with airspace disease in the right lung base. I suspect this is more chronic than an acute infection. Bilateral effusions. Radiology in agreement. Patient was taken off BiPAP. Her tachycardia, tachypnea, fatigue, color have improved. She is tolerating 4 L nasal cannula. Suspect COPD exacerbation with mild CHF exacerbation. Patient warrant admission. She is updated of all the results and the plan. She confirmed understanding. I spoke with Dr. Rebollar. He would like the patient to be given 20 mg IV Lasix with monitoring in the ED for an hour. If blood pressure remains stable. Patient okay for PCU. Dr. Rebollar came and evaluated the patient. He would like the patient admitted to the ICU. Her blood pressure has remained stable at 111/73 despite the 20 mg of Lasix. Requesting another 20 mg IV Lasix be ordered. This was ordered. Patient will be admitted. EKG: Interpreted by me/EM physician: EKG shows normal sinus rhythm without any acute ischemic changes. Heart rate 82 30 minutes of critical care time utilized in managing the patient. This is due to high probability of and deterioration of the patient based on the patient's condition and excludes any separately billable procedures. Impression: 1. Acute on chronic hypoxia 2. COPD exacerbation 3. Mild CHF exacerbation 4. RUFINA versus renal insufficiency 5. Lactic acidosis Lab Data Labs: Laboratory Results - last 24 hr 02/03/25 08:34 WBC 13.3 H RBC 4.84 Hgb 13.7 Hct 42.7 MCV 88.2 MCH 28.3 MCHC 32.1 RDW Std Deviation 46.4 H RDW Coeff of Joseph 14.5 Plt Count 340 MPV 9.9 Immature Gran % (Auto) 1.500 H Neut % (Auto) 64.3 Lymph % (Auto) 29.0 [place] % (Auto) 3.1 Eos % (Auto) 1.6 Baso % (Auto) 0.5 Absolute Neuts (auto) 8.6 H Absolute Lymphs (auto) 3.86 Nucleated RBC % 0 Sodium 141 Potassium 4.1 Chloride 106 Carbon Dioxide 15.5 L Anion Gap 19 H BUN 13 Creatinine 1.24 H Estim Creat Clear Calc 49.12 L Est GFR (MDRD) Non-Af 51 L BUN/Creatinine Ratio 10.1 Glucose 235 H Lactic Acid 6.4 H* Calcium 8.7 Total Bilirubin 0.21 AST 21 ALT 11 Alkaline Phosphatase 132 H Troponin T High Sens 18 H D NT pro BNP II 735 Total Protein 6.5 Albumin 3.6 Globulin 2.9 Albumin/Globulin Ratio 1.2 ABG Data ABG results: ABG 02/03/25 08:37 Specimen Type ART Sample Site L Radial pH 7.32 L Bicarbonate Actual 16.2 L Total CO2 17 Base Excess -10 L O2 Saturation 96 O2 % 50.0 ABG pCO2 31.2 L ABG pO2 89 Respiration Rate 12 O2 Delivery Device Not entered Vent Mode BiLevel POC PEEP 8 Radiography Diagnostic Testing: Clinical Impression(s) from Imaging Studies Chest X-Ray 02/03/25 09:20 IMPRESSION: Findings suggestive of pulmonary edema. Follow-up recommended. Reading Location: [place] [address] Discharge Plan Triage Chief Complaint: Shortness of Breath ED Provider: Rory Guzman Dx/Rx/DC Orders Prescriptions: No Action albuterol sulfate 1 INHALER inhaler 2 puff inhalation Q6H PRN (Reason: COPD) atorvastatin 40 mg tablet 40 mg PO QHS omeprazole 40 mg capsule,delayed release(DR/EC) 40 mg PO DAILY ziprasidone HCl 80 mg capsule 80 mg PO QHS sertraline 50 mg tablet 75 mg PO DAILY fluticasone propion-salmeterol 100-50 mcg/dose blister with device 1 ea INHALATION BID furosemide 40 mg tablet 40 mg PO DAILY Qty: 60 3RF ziprasidone HCl 60 mg capsule 60 mg PO DAILY losartan 100 mg tablet 100 mg PO DAILY carvedilol 12.5 mg Tablet 12.5 mg PO BIDCM 30 Days Qty: 60 2RF ipratropium-albuterol 0.5 mg-3 mg(2.5 mg base)/3 mL Solution For Nebulization 3 ml inhalation Q6HWA.RT PRN (Reason: sob) 30 Days Qty: 90 0RF hydralazine 50 mg Tablet 50 mg PO TID 30 Days Qty: 90 0RF hydroxyzine pamoate 100 mg capsule 50 mg PO BID 3 Days Qty: 0 0RF meloxicam 15 mg tablet 15 mg PO DAILY prednisone 20 mg Tablet 40 mg PO BREAKFAST Qty: 10 0RF Rx Instructions: 2 daily for 5 days Primary Care Provider: Susy Funez Referrals: Susy Funez MD [Primary Care Provider] - Print Language: Spanish
[2025-02-03 08:41] LABS: Base Excess -10 mmol/L (-2 to +2); FI02 50.0; PEEP 8; PO2 89 mmHG (75-100); RR 12; SITE L Radial; SO2 96 % (95-99)
[2025-02-03 08:46] LABS: Hematocrit 42.7 % (37-47); Hemoglobin 13.7 g/dL (12.0-15.0); Immature Granulocytes Count 0.200 X10^3/uL (0.0-0.0); Mean Corp Hgb Conc 32.1 g/dL (32-36); Mean Corpuscular Volume 88.2 fL (81-99); Mean Platelet Vol. 9.9 fl (6.2-12.0); NRBC Flagged by Analyzer 0 % (0-5); Platelet Count 340 K/mm3 (150-450); RBC Distribution Width CV 14.5 % (11.6-14.6); RBC Distribution Width SD 46.4 fl (35.1-43.9); Red Blood Count 4.84 M/mm3 (4.2-5.4); White Blood Count 13.3 K/mm3 (4.4-11.0)
[2025-02-03] MEDS: 0.9% Normal Saline (1000mL) 1,000 ML 999 ML IV (08:57)
[2025-02-03 09:04] LABS: AST(SGOT) 21 U/L (<=31); Alanine Aminotransfer ALT/SGPT 11 U/L (<=34); Albumin, Serum 3.6 g/dL (3.5-5.0); Alkaline Phosphatase 132 U/L (35-104); Anion Gap 19 (5-15); BUN 13 mg/dL (4-19); BUN/Creat Ratio 10.1 RATIO (10-20); Calcium,Total 8.7 mg/dL (7.6-11.0); Carbon Dioxide 15.5 mmol/L (21.0-32.0); Chloride 106 mmol/L (98-108); Estimated Creatinine Clearance 49.12 ml/min (50-250); Globulin 2.9 g/dL (2.2-4.2); Glucose 235 mg/dL (70-99); Potassium 4.1 mmol/L (3.3-5.1); Pro- Brain NATRIURETIC PEPTIDE 735 pg/mL (<=900); Troponin T High Sensitivity 18 ng/L (<=14)
--- NOTE | 2025-02-03 09:20 | RAD_ITS ---
PROCEDURE: CHEST PA AND LATERAL 02/03/2025 REASON FOR EXAM: SHORTNESS OF BREATH TECHNIQUE: Procedure Code: RADCXR Modality: DX Procedure: CHEST PA AND LATERAL COMPARISON: Prior study dated October 30, 2024. FINDINGS: Hardware: EKG electrodes Heart: Heart is nonenlarged. Mediastinum: The mediastinal contour is unremarkable. Lungs: Airspace disease in the right lower lobe as well as in the right upper lobe. Blunting of both costophrenic angles. Vascular congestion. Bones: Degenerative changes are identified within the thoracic spine. A metallic rim is seen in the gastroesophageal junction in keeping with prior hiatal hernia repair. RAD/Chest PA and Lateral IMPRESSION: Findings suggestive of pulmonary edema. Follow-up recommended. Reading Location: [place] [id number]
--- NOTE | 2025-02-03 09:46 | HP.PCM.HOS_ITS ---
HPI - General General Date of Admission: 02/03/25 Date of Service: 02/03/25 Chief Complaint: Sudden onset of shortness of breath today HPI Narrative RAYMON HAAS, is a 54 F came to ED sudden onset shortness of breath in the morning. Patient states she was on baseline respiratory status prior to morning today. As per EMS, she was using accessory muscles and pulse was 84% on 3 L of oxygen and was put on nonrebreather. Patient on home O2 as needed. She has a history of COPD. She also complained of chest tightness, headache. She has mild runny nose but denies sore throat or fever. Denies cough or sputum production. EMS vitals shows she was tachycardic 100 1500. Normotensive blood pressure tachypneic respiratory 30 to 32/min ETCO2 23. In ED, chest x-ray was done which shows pulmonary vascular congestion/alveolar opacity in bilateral lower lobes. Patient was put on BiPAP in ED. DuoNeb and IV Solu-Medrol given in the ED. Lasix was given after my discussion with the ED physician [facility] Medical History Acute on chronic hypoxic respiratory failure Shock Elevated troponin Transaminitis Non-ST elevation NM (NSTEMI) Pneumonia Takotsubo cardiomyopathy Bipolar disorder Anxiety Depression Osteoarthritis Kidney stones Hx of gastroesophageal reflux (GERD) Smoker BiPAP (biphasic positive airway pressure) dependence Asthma Myocardial infarct Chest pain Stroke/cerebrovascular accident Migraines Seizures Ulcerative colitis Hypertension COPD (chronic obstructive pulmonary disease) Home Medications ?Medication ?Instructions ?Recorded ?Last Taken ?Type albuterol sulfate 90 mcg/actuation 2 puff inhalation Q 6H PRN COPD 02/02/19 02/02/25 History aerosol inhaler atorvastatin 40 mg tablet 40 mg PO QHS cholesterol 02/02/25 History omeprazole 40 mg capsule,delayed 40 mg PO DAILY GERD 0 11/07/23 10/30/24 History release sertraline 50 mg tablet 75 mg PO DAILY Mood 11/07/23 02/02/25 History ziprasidone HCl 80 mg capsule 80 mg PO QHS antipsychot ic 11/07/23 02/02/25 History fluticasone 100 mcg-salmeterol 50 1 ea inhalation BID allergies 01/10/24 06/21/24 History mcg/dose blistr powdr for inhalation furosemide 40 mg tablet 40 mg PO DAILY edema #60 tab s 05/26/24 02/02/25 Rx losartan 100 mg tablet 100 mg PO DAILY bp 06/22/24 02/02/25 History ziprasidone HCl 60 mg capsule 60 mg PO DAILY bipolar 0 06/22/24 02/02/25 History carvedilol 12.5 mg tablet 12.5 mg PO BIDCM 30 days #60 tabs 06/25/24 02/02/25 Rx hydroxyzine pamoate 100 mg capsule 50 mg (1/2 x 100 mg ) PO BID 06/25/24 02/02/25 Rx Anxiety 3 days #0 caps meloxicam 15 mg tablet 15 mg PO DAILY pain 11/01/24 Unknown History albuterol sulfate 2.5 mg/3 mL 2.5 mg continuous nebuli zation Q6H 02/03/25 Unknown History (0.083 %) solution for nebulization PRN wheezing Allergy/AdvReac Type Severity Reaction Status Date / Time meperidine (From Demerol) Allergy Other Verified 10/30/24 07:49 metronidazole (From Flagyl) Allergy Hives Verified 10/30/24 07:49 oxycodone (From Percocet) Allergy Hives Verified 10/30/24 07:49 Penicillins Allergy Hives Verified 10/30/24 07:49 aspirin AdvReac Vomiting Verified 10/30/24 07:49 Family History Mother Myocardial infarction Cancer Brother Myocardial infarction Surgical History History of left heart catheterization (~10/2023) Hx of hysterectomy History of appendectomy Social History Smoking Status: Former smoker how long ago did patient quit smoking: Quit 2 weeks ago per patient report on 01/12/2024 alcohol intake: never substance use type: does not use caffeine: Yes (occasionally) ROS ROS Narrative Constitutional: Reports fatigue and weakness. No fever. HEENT: Reports systems reviewed and no addt'l complaints, except as documented Respiratory/Chest: As described in HPI. COPD. Quit smoking in December 2023 CVS: No chest pressure but chest tightness. Gastrointestinal: Denies coffee ground emesis, hematemesis or vomiting Genitourinary: Denies burning urination or new urinary tract symptoms Musculoskeletal: Denies acute joint pain or limited range of motion. No acute injury Neurologic: History of chronic migraine disease. Denies seizure-like symptoms. skin: No ulcer. No rash Endocrinology: Reports systems reviewed and no addt'l complaints, except as documented Hematologic/Lymphatic: Reports systems reviewed and no addt'l complaints, except as documented Rest 14 ROS are negative except as mentioned in HPI Vital Signs Vital Signs Vital Signs: 02/03/25 08:02 02/03/25 08:02 02/03/25 08:05 Temperature 97.6 F L Temperature Source Oral Pulse Rate 118 H 115 H 102 H Respiratory Rate 18 23 H 18 Respiratory Effort Respiratory Depth Respiratory Pattern Normal Blood Pressure 154/105 H Blood Pressure Mean 121 Pulse Ox 98 96 98 Oxygen Delivery Method Non-Rebreather Nasal Cannula Oxygen Flow Rate (L/min) 5 Fraction of Inspired Oxygen (FIO2) 50 02/03/25 08:09 02/03/25 09:00 02/03/25 09:20 Temperature Temperature Source Pulse Rate 94 72 Respiratory Rate 18 18 Respiratory Effort Short of Breath Respiratory Depth Shallow Respiratory Pattern Tachypnea Normal Normal Blood Pressure Blood Pressure Mean Pulse Ox 98 Oxygen Delivery Method Nasal Cannula Oxygen Flow Rate (L/min) 5 Fraction of Inspired Oxygen (FIO2) 50 02/03/25 09:20 02/03/25 09:34 Temperature 98.3 F Temperature Source Temporal Pulse Rate 78 Respiratory Rate 12 Respiratory Effort Respiratory Depth Respiratory Pattern Blood Pressure 101/69 Blood Pressure Mean 79 Pulse Ox 98 97 Oxygen Delivery Method Nasal Cannula Nasal Cannula Oxygen Flow Rate (L/min) 4 Fraction of Inspired Oxygen (FIO2) Weight Weight: 153 lb 10.595 oz Body Mass Index (BMI) 26.4 Physical Exam Narrative General: Alert, Oriented x3, Cooperative. BMI 26.4 kg/m? HEENT: Atraumatic, PERRLA, EOMI, Normocephalic. Oral: On BiPAP. Neck: Supple, No JVD, Negative Carotid Bruits Chest wall/Lungs: Air entry severely diminished in all lung uribe. Bilateral lung bases fine crepitations Cardiovascular: Sinus tachycardia normal S1,S2, systolic murmur Abdomen: Bowel Sounds Present, Soft, Non Tender, Non-Distended : No dysuria. No renal angle tenderness. No suprapubic tenderness. Extremities: No edema, Capillary Refill Less than 3 Seconds Skin: No rashes, No breakdown Musculoskeletal: No Tenderness to Palpation of Joints or Extremities Neurological: Cranial nerves II-XII grossly intact, DTR 2+/4. No acute focal neurological deficit. Psych/Mental Status: Flat affect Results Lab / Micro Data 02/03/25 08:34 02/03/25 08:34 Labs: Laboratory Results - last 24 hr 02/03/25 08:34: WBC 13.3 H, RBC 4.84, Hgb 13.7, Hct 42.7, MCV 88.2, MCH 28.3, MCHC 32.1, RDW Std Deviation 46.4 H, RDW Coeff of Joseph 14.5, Plt Count 340, MPV 9.9, Immature Gran % (Auto) 1.500 H, Neut % (Auto) 64.3, Lymph % (Auto) 29.0, [place] % (Auto) 3.1, Eos % (Auto) 1.6, Baso % (Auto) 0.5, Absolute Neuts (auto) 8.6 H, Absolute Lymphs (auto) 3.86, Nucleated RBC % 0, Sodium 141, Potassium 4.1, Chloride 106, Carbon Dioxide 15.5 L, Anion Gap 19 H, BUN 13, Creatinine 1.24 H, Estim Creat Clear Calc 49.12 L, Est GFR (MDRD) Non-Af 51 L, BUN/Creatinine Ratio 10.1, Glucose 235 H, Lactic Acid 6.4 H*, Calcium 8.7, Total Bilirubin 0.21, AST 21, ALT 11, Alkaline Phosphatase 132 H, Troponin T High Sens 18 H D, NT pro BNP II 735, Total Protein 6.5, Albumin 3.6, Globulin 2.9, Albumin/Globulin Ratio 1.2 Micro: Microbiology 02/03/25 08:30 Mucosa - Nose SARS-CoV-2, Influenza & RSV (PCR) - Final ABG Data ABG results: ABG 02/03/25 08:37 Specimen Type ART Sample Site L Radial pH 7.32 L Bicarbonate Actual 16.2 L Total CO2 17 Base Excess -10 L O2 Saturation 96 O2 % 50.0 ABG pCO2 31.2 L ABG pO2 89 Respiration Rate 12 O2 Delivery Device Not entered Vent Mode BiLevel POC PEEP 8 Imaging Radiology Impression Chest X-Ray 02/03/25 09:20 IMPRESSION: Findings suggestive of pulmonary edema. Follow-up recommended. Reading [facility] Assessment & Plan Assessment/Plan (1) CHF exacerbation: (2) Acute hypoxic respiratory failure: PLAN: Plan This 54-year-old female is being admitted for acute hypoxic respiratory failure predominantly from heart failure exacerbation and COPD exacerbation 1. Acute hypoxic respiratory failure predominantly acute on chronic HFpEF : Patient is being admitted in ICU on BiPAP. ABG 7.32/31.2/89 on 50% FiO2, RR 12 on BiPAP PEEP 8. Chest x-ray shows pulmonary venous congestion/edema and blunting of bilateral CP angles patient blood pressure was low in the ED systolic 100 which improved after 20 mg of IV Lasix therefore another dose of 20 mg ordered. Lasix 40 mL IV twice daily to continue. Heart failure core measures including intake and output, fluid restriction less than 1500 mL, daily weight monitoring, kidney and electrolytes monitoring. Last echo shows EF 65% with diastolic heart failure, LA enlarged. Limited echo ordered. BNP normal. 2. Mild COPD exacerbation: Triple PCR for SARS-CoV-2, flu and RSV are negative. Patient is being managed on scheduled bronchodilator, IV Solu-Medrol, Mucinex, incentive spirometry and Pep. IV azithromycin ordered. Respiratory panel ordered. Urinary antigens ordered 3. Mild troponin elevation: Troponin is 18, 46. Third pending. Patient denies any chest pressure. She had troponin elevations in the past 4. CKD stage IIIa: Patient creatinine baseline is about 1.2-1.3. Lactic acid high 6.4 probably due to hypoxia and venous congestion. Monitor kidney function. 5. Paroxysmal A-fib : Currently patient in sinus tachycardia. On carvedilol, resume from today's evening. 6. Hypertension, dyslipidemia: On carvedilol and statin continued. Hold Lasix and losartan 7. Other comorbidities include GERD and anxiety and depression: On sertraline and ziprasidone continued. 8. Mild overweight: BMI 26.4 kg/m?. DVT prophylaxis, high risk: Lovenox 40 mg subcu daily Living will/advanced directive/end of life care: Patient does not have living will or advanced directive. She does not have designated power of commercial litigation attorney for health. His son is next of kin. After discussion of benefits/risks procedures involved with full code, DNR CC arrest and DNR CC, the patient opted for full code. Patient does want artificial life support including intubation, tube feed, ventilator and/chest compression, central venous catheter, vasopressor and DC shock if needed Total time spent in [id number] encounter in discussion of advanced directive 17 minutes. Microbiology Past 72 Hours 02/03/25 08:30 Mucosa - Nose SARS-CoV-2, Influenza & RSV (PCR) - Final Laboratory Results 02/03/25 08:34: WBC 13.3 H, RBC 4.84, Hgb 13.7, Hct 42.7, MCV 88.2, MCH 28.3, MCHC 32.1, RDW Std Deviation 46.4 H, RDW Coeff of Joseph 14.5, Plt Count 340, MPV 9.9, Immature Gran % (Auto) 1.500 H, Neut % (Auto) 64.3, Lymph % (Auto) 29.0, [place] % (Auto) 3.1, Eos % (Auto) 1.6, Baso % (Auto) 0.5, Absolute Neuts (auto) 8.6 H, Absolute Lymphs (auto) 3.86, Nucleated RBC % 0, Sodium 141, Potassium 4.1, Chloride 106, Carbon Dioxide 15.5 L, Anion Gap 19 H, BUN 13, Creatinine 1.24 H, Estim Creat Clear Calc 49.12 L, Est GFR (MDRD) Non-Af 51 L, BUN/Creatinine Ratio 10.1, Glucose 235 H, Lactic Acid 6.4 H*, Calcium 8.7, Total Bilirubin 0.21, AST 21, ALT 11, Alkaline Phosphatase 132 H, Troponin T High Sens 18 H D, NT pro BNP II 735, Total Protein 6.5, Albumin 3.6, Globulin 2.9, Albumin/Globulin Ratio 1.2 02/03/25 08:37: Specimen Type ART, Sample Site L Radial, pH 7.32 L, Bicarbonate Actual 16.2 L, Total CO2 17, Base Excess -10 L, O2 Saturation 96, O2 % 50.0, ABG pCO2 31.2 L, ABG pO2 89, Respiration Rate 12, O2 Delivery Device Not entered, Vent Mode BiLevel, POC PEEP 8 02/03/25 10:34: Troponin T Hi Sens 2 Hr 46 H Echo 12/28/2023 Normal LV size. Left ventricular systolic function is normal. The left ventricular ejection fraction is 65 %. Structurally normal valves. Compared to previous study, the left ventricular systolic function has improved.. Charges/Coding Visit Charges Inpatient E&M: 61701 Init Hosp L3 Procedures Hospitalists Procedures: 04330 Advncd Care Plan 30 Min
[2025-02-03] MEDS: Furosemide 20 MG/2 ML VIAL IV ×2 (10:02→10:41)
--- NOTE | 2025-02-03 10:47 | ECHOL_ITS ---
Reason For Study Reason For Study: CHF/ SOB Procedure This was a limited 2D transthoracic echocardiogram. Exam performed portable in ED. Left Ventricle Normal LV size. The estimated ejection fraction is 30-35 %. There are regional wall motion abnormalities as specified. Basal and mid hypokinesis inferior and inferolateral rankin. Akinesis of the basal anterior and lateral rankin. Hypokinesis of the anterior septum. Right Ventricle Normal RV size. Normal systolic function. Atria Normal left atrium. Normal right atrium. Mitral Valve The mitral valve is structurally normal. No prolapse or stenosis seen. Moderate to severe mitral valve regurgitation. Tricuspid Valve Normal tricuspid valve. Mild to moderate (1-2+) tricuspid valve insufficiency. Pulmonary artery systolic pressure is 32 mmHg. Aortic Valve Trisinus/trileaflet aortic valve. Moderate (2+) aortic valve insufficiency. Pulmonic Valve Normal pulmonic valve. Great Vessels Normal sized aortic root. Pericardium/Pleural No pericardial effusion. MMode/2D Measurements & Calculations LVIDd: 4.8 cm IVSd: 0.94 cm LAV(MOD- bp): 33.7 ml LVIDs: 3.3 cm LVPWd: 0.97 cm LAV(MOD- bp) Indexed: 19.2 ml/m2 RVDd: 2.4 cm FS: 29.8 % LAV(MOD- sp2): 33.3 ml LAV(MOD- sp4): 34.6 ml SV(MOD- sp4): 28.3 ml LVAd ap4: 23.0 cm2 LVAd ap2: 23.0 cm2 LVLd ap4: 7.0 cm LVLd ap2: 7.2 cm SI(MOD- sp4): 16.2 ml/m2 EDV(MOD-sp4): 62.1 ml EDV(MOD-sp2): 61.7 ml EDV(sp4-el): 63.8 ml EDV(sp2-el): 63.0 ml LVAs ap4: 15.7 cm2 LVAs ap2: 15.7 cm2 LVLs ap4: 5.9 cm LVLs ap2: 6.3 cm ESV(MOD-sp4): 33.7 ml ESV(MOD-sp2): 34.3 ml ESV(sp4-el): 35.5 ml ESV(sp2-el): 33.5 ml EF(MOD-sp4): 45.7 % EF(MOD-sp2): 44.4 % EF(sp4-el): 44.4 % SV(MOD-sp2): 27.4 ml SV(sp4-el): 28.3 ml Ao sinus diam: 2.8 cm SI(MOD-sp2): 15.7 ml/m2 LA dimension(2D): 3.7 cm LA A4 area: 13.8 cm2 RA A4 area: 8.3 cm2 TAPSE: 1.7 cm Time Measurements MV dec time: 0.11 sec Doppler Measurements & Calculations MV E max andrey: 107.5 cm/sec Lat Peak E' Andrey: 10.5 cm/sec Med Peak E' Andrey: 7.6 cm/sec MV A max andrey: 63.8 cm/sec E/E' lat: 10.2 E/E' med: 14.2 MV E/A: 1.7 MV dec slope: 941.1 cm/sec2 AI max andrey: 443.3 cm/sec TR max andrey: 268.8 cm/sec AI max P.7 mmHg TR max P.2 mmHg AI dec slope: 412.0 cm/sec2 AI P1/2t: 315.1 msec ECHO/Echo, Limited Study Interpretation Summary The estimated ejection fraction is 30-35 %. Left ventricular basal wall segments severely hypokinetic to akinetic. [place] con tracting normally. Consider reverse Takotsubo's. Mild to moderate (1-2+) tricuspid valve insufficiency. Moderate to severe mitral valve regurgitation Moderate (2+) aortic valve insufficiency. Ordering Physician: Leonard Rebollar Performed By: Sandra Hoang RDCS
[2025-02-03 10:58] LABS: Troponin T High Sens 2 HR 46 ng/L (<=14)
--- NOTE | 2025-02-03 12:13 | EX.PCM.CONCC ---
Assessment & Plan Assessment/Plan (1) Acute respiratory failure with hypoxemia: PLAN: Plan RECOMMENDATIONS: 1. Wean from BiPAP to nasal cannula oxygen. Goal to maintain saturations 88 to 92%. 2. Continue BiPAP with naps and nightly, given history of sleep apnea. 3. Continue scheduled bronchodilators and steroids. 4. Check BNP and repeat echocardiogram. 5. Consider CTA chest to rule out pulmonary embolism. 6. Continue appropriate DVT prophylaxis. 7. Check full respiratory viral panel. IMPRESSIONS: 1. Acute hypoxemic respiratory failure Potentially related to COPD exacerbation versus acute decompensated heart failure. The patient does not routinely utilize supplemental oxygen throughout the day, but rather wears 2 L/min of oxygen nightly. She does have a known history of COPD of unclear severity and has been lost to outpatient pulmonary follow-up. In addition to scheduled bronchodilators and steroids, I would recommend that we check a BNP and full respiratory viral panel, given recent sick contact exposure. The patient can be weaned from BiPAP and transitioned to nasal cannula supplemental oxygen, with a goal to maintain oxygen saturations 88 to 92%. Given the rather acute onset of shortness of breath noted this morning, will obtain CTA chest to rule out pulmonary embolism. Follow-up echocardiogram has already been ordered. 2. History of obstructive sleep apnea/nocturnal hypoxemia Although the patient has a known history of obstructive sleep apnea, she is noncompliant with nocturnal PAP therapy. While admitted to the hospital, we will plan to continue BiPAP therapy with naps and nightly. 3. Troponin elevation Most likely secondary to demand ischemia in the setting of presenting hypoxemia. Follow-up echocardiogram is pending. Continue current supportive measures. 4. History of chronic kidney disease/obesity/history of Takotsubo cardiomyopathy/anxiety/depression Complicates care, management, recovery and prognosis. Continue supportive measures as noted above. CODE STATUS: Full code (verified with patient at the bedside) This note was generated with [employer] dictation software. It may contain incorrect words, spelling, and punctuation that were not noted in checking the note before signing. HPI Consult Data Date of Consult: 02/03/25 HPI Narrative Reason for Consultation: Acute hypoxemic respiratory failure HPI Narrative: The patient is a 54-year-old female, with a history as outlined below, who presented to the emergency department on February 03 with rather acute onset shortness of breath which began the morning of her presentation. The patient indicated that upon ambulating to the bathroom this morning she became acutely short of breath. She does utilize supplemental oxygen on a nightly basis at 2 L/min. She does have an extensive tobacco abuse history, which is currently in remission. She does report that her boyfriend was ill last week with an upper respiratory infection. She denied a history of venous thromboembolic disease. The patient is currently prescribed Advair and as needed albuterol at her baseline. She reports rather infrequent use of her rescue inhaler. The patient was last admitted to the hospital in October 2024 with acute respiratory failure presumed secondary to a COPD exacerbation. If you recall, the patient previously reported to me that she was under the care of a insulation engineman in [place], but was interested in transferring her care here. Despite this, the patient has never followed up in our pulmonary medicine clinic following her hospital discharges. In addition, she did report a history of obstructive sleep apnea, for which she is noncompliant with use of nocturnal PAP therapy. Surface echocardiogram from December 2023 demonstrated normal LV size and thickness with an ejection fraction of 65%. On presentation to the emergency department, the patient was noted to be afebrile but was notably tachycardic and tachypneic. She was otherwise hemodynamically stable. Laboratory evaluation revealed a white blood cell count of 13,000. Arterial blood gas was notable for a pH of 7.32 with a pCO2 of 31 and pO2 of 89. Chemistry profile was notable for a bicarbonate of 15 with anion gap of 19 and creatinine of 1.24. Lactate was elevated at 6.4. Troponin was increased at 46. COVID, influenza and RSV PCR's were negative. Blood cultures were collected. Chest x-ray demonstrated stigmata of pulmonary vascular congestion with fluid in the fissure. In the emergency department, the patient was provided with IV Lasix, steroids and aerosol treatments. The patient was initiated on BiPAP therapy. She was subsequently admitted to the medical intensive care unit for further management. [facility] Medical History Acute on chronic hypoxic respiratory failure Shock Elevated troponin Transaminitis Non-ST elevation DE (NSTEMI) Pneumonia Takotsubo cardiomyopathy Bipolar disorder Anxiety Depression Osteoarthritis Kidney stones Hx of gastroesophageal reflux (GERD) Smoker BiPAP (biphasic positive airway pressure) dependence Asthma Myocardial infarct Chest pain Stroke/cerebrovascular accident Migraines Seizures Ulcerative colitis Hypertension COPD (chronic obstructive pulmonary disease) Home Medications ?Medication ?Instructions ?Recorded ?Last Taken ?Type albuterol sulfate 90 mcg/actuation 2 puff inhalation Q6H PRN COPD 02/02/19 02/02/25 History aerosol inhaler atorvastatin 40 mg tablet 40 mg PO QHS cholesterol 11/07/23 02/02/25 History omeprazole 40 mg capsule,delayed 40 mg PO DAILY GERD 11/07/23 10/30/24 History release sertraline 50 mg tablet 75 mg PO DAILY Mood 11/07/23 02/02/25 History ziprasidone HCl 80 mg capsule 80 mg PO QHS antipsychotic 11/07/23 02/02/25 History fluticasone 100 mcg-salmeterol 50 1 ea inhalation BID allergies 01/10/24 06/21/24 History mcg/dose blistr powdr for inhalation furosemide 40 mg tablet 40 mg PO DAILY edema #60 tabs 05/26/24 02/02/25 Rx losartan 100 mg tablet 100 mg PO DAILY bp 06/22/24 02/02/25 History ziprasidone HCl 60 mg capsule 60 mg PO DAILY bipolar 06/22/24 02/02/25 History carvedilol 12.5 mg tablet 12.5 mg PO BIDCM 30 days #60 tabs 06/25/24 02/02/25 Rx hydroxyzine pamoate 100 mg capsule 50 mg (1/2 x 100 mg) PO BID 06/25/24 02/02/25 Rx Anxiety 3 days #0 caps meloxicam 15 mg tablet 15 mg PO DAILY pain 11/01/24 Unknown History albuterol sulfate 2.5 mg/3 mL 2.5 mg continuous nebulization Q6H 02/03/25 Unknown History (0.083 %) solution for nebulization PRN wheezing Allergy/AdvReac Type Severity Reaction Status Date / Time meperidine (From Demerol) Allergy Other Verified 10/30/24 07:49 metronidazole (From Flagyl) Allergy Hives Verified 10/30/24 07:49 oxycodone (From Percocet) Allergy Hives Verified 10/30/24 07:49 Penicillins Allergy Hives Verified 10/30/24 07:49 aspirin AdvReac Vomiting Verified 10/30/24 07:49 Family History Mother Myocardial infarction Cancer Brother Myocardial infarction Surgical History History of left heart catheterization (~10/2023) Hx of hysterectomy History of appendectomy Social History Smoking Status: Former smoker how long ago did patient quit smoking: Quit 2 weeks ago per patient report on 01/12/2024 alcohol intake: never substance use type: does not use caffeine: Yes (occasionally) ROS ROS Narrative 10 systems were reviewed with pertinent positives as noted in the HPI above. Physical Exam Const alert and no apparent distress Constitutional Narrative: Resting comfortably in bed on nasal cannula supplemental oxygen. General Appearance: cooperative HEENT normocephalic, head/scalp atraumatic and moist oral mucous membranes Eyes PERRL, EOMs intact bilaterally and conjunctivae normal Neck supple General: trachea midline Chest inspection of chest normal Resp normal respiratory effort and no use of accessory muscles Effort and Inspection: able to speak in complete sentences Auscultation: diminished lung sounds Cardio regular rate and regular rhythm GI normal to inspection, nondistended, normoactive bowel sounds Extremity no clubbing, cyanosis or edema Skin no rashes or lesions noted Neuro CN's II-XII intact bilaterally, moves all extremities and no focal motor deficits Psych cooperative and affect normal Lab / Micro Data 02/03/25 08:34 02/03/25 08:34 Labs: Laboratory Results - last 24 hr 02/03/25 08:34: WBC 13.3 H, RBC 4.84, Hgb 13.7, Hct 42.7, MCV 88.2, MCH 28.3, MCHC 32.1, RDW Std Deviation 46.4 H, RDW Coeff of Joseph 14.5, Plt Count 340, MPV 9.9, Immature Gran % (Auto) 1.500 H, Neut % (Auto) 64.3, Lymph % (Auto) 29.0, Nash % (Auto) 3.1, Eos % (Auto) 1.6, Baso % (Auto) 0.5, Absolute Neuts (auto) 8.6 H, Absolute Lymphs (auto) 3.86, Nucleated RBC % 0, Sodium 141, Potassium 4.1, Chloride 106, Carbon Dioxide 15.5 L, Anion Gap 19 H, BUN 13, Creatinine 1.24 H, Estim Creat Clear Calc 49.12 L, Est GFR (MDRD) Non-Af 51 L, BUN/Creatinine Ratio 10.1, Glucose 235 H, Lactic Acid 6.4 H*, Calcium 8.7, Total Bilirubin 0.21, AST 21, ALT 11, Alkaline Phosphatase 132 H, Troponin T High Sens 18 H D, NT pro BNP II 735, Total Protein 6.5, Albumin 3.6, Globulin 2.9, Albumin/Globulin Ratio 1.2 02/03/25 10:34: Troponin T Hi Sens 2 Hr 46 H Micro: Microbiology 02/03/25 08:30 Mucosa - Nose SARS-CoV-2, Influenza & RSV (PCR) - Final ABG Data ABG results: ABG 02/03/25 08:37 Specimen Type ART Sample Site L Radial pH 7.32 L Bicarbonate Actual 16.2 L Total CO2 17 Base Excess -10 L O2 Saturation 96 O2 % 50.0 ABG pCO2 31.2 L ABG pO2 89 Respiration Rate 12 O2 Delivery Device Not entered Vent Mode BiLevel POC PEEP 8 Imaging Radiology Impression Chest X-Ray 02/03/25 09:20 IMPRESSION: Findings suggestive of pulmonary edema. Follow-up recommended. Reading Location: [id number] Charges/Coding Visit Charges Inpatient E&M: 18380 Init Hosp L3
--- NOTE | 2025-02-03 12:14 | CT_ITS ---
PROCEDURE: CTA CHEST W/WO CONTRAST 02/03/2025 REASON FOR EXAM: EVAL FOR PE COPD. Chest tightness. TECHNIQUE: Procedure Code: [id number] Modality: CT Procedure: CTA CHEST W/WO CONTRAST Multiplanar Sagittal and Coronal images were obtained. 3D post processing was performed CONTRAST: Isovue-300 VOLUME: 100 mL One or more dose reduction techniques were used (e.g., Automated exposure control, adjustment of the mA and/or kV according to patient size, use of iterative reconstruction technique). RADIATION DOSE SUMMARY: CTDlvol: 11.05 mGy DLP: 467.03 mGycm COMPARISON: Prior chest radiograph done earlier in the day. FINDINGS: Hardware: EKG electrodes are seen. Lymph nodes: No suspicious lymph nodes are seen. Heart: The heart is nonenlarged. Coronary artery calcification. Thoracic Aorta: No thoracic aortic aneurysm or dissection. Pulmonary Vessels: No evidence of pulmonary embolism. Delete Lungs and Airways: Patchy areas of ground-glass appearance seen in the posterior aspect of the right upper lobe as well as in the 90 earlier arterial medial aspect of the right upper lobe and medial aspect of the left upper lobe. There is evidence of increased interstitial markings with areas of confluence in the posterior aspect of the right middle lobe as well as in the posterior medial segment of the right lower lobe suggestive of scarring with superimposed infiltrate. Small bullous changes are seen in keeping with honeycombing. Scarring at the left lower lobe. Pleura: No pleural effusion. Upper Abdomen: Questionable sludge in the dependent portion of the gallbladder lumen. Diffuse atrophy of the pancreas. Metallic ring seen at the level of the gastroesophageal junction. Bones: Degenerative changes of the thoracic spine. CT/CTA Chest W/WO Contrast IMPRESSION: No evidence of pulmonary embolism. Multiple changes as described. Reading Location: [place] [id number]
[2025-02-03 12:39] LABS: Reflex Lactate? Y
[2025-02-03 13:13] LABS: Pro- Brain NATRIURETIC PEPTIDE 993 pg/mL (<=900)
[2025-02-03 14:10] LABS: Troponin T High Sens 4 HR 55 ng/L (<=14)
--- NOTE | 2025-02-03 14:10 | PCM.RX.CS ---
Consult Antibiotic Management Pharmacy has been consulted to manage selected antibiotic: Vancomycin Type of Intervention Type of Consult: New start Suspected Infection Suspected Infection: Pneumonia and Other Prior Doses of Antibiotics Prior Doses of Antibiotics Received/Current Regimen: None Labs Labs: Sodium 141 mmol/L (133-145) 02/03/25 08:34 Potassium 4.1 mmol/L (3.3-5.1) 02/03/25 08:34 Chloride 106 mmol/L (98-108) 02/03/25 08:34 Carbon Dioxide 15.5 mmol/L (21.0-32.0) L 02/03/25 08:34 Anion Gap 19 (5-15) H 02/03/25 08:34 BUN 13 mg/dL (4-19) 02/03/25 08:34 Creatinine 1.24 mg/dL (0.70-1.20) H 02/03/25 08:34 Est GFR (MDRD) Non-Af 51 (>60) L 02/03/25 08:34 BUN/Creatinine Ratio 10.1 RATIO (10-20) 02/03/25 08:34 Glucose 235 mg/dL (70-99) H 02/03/25 08:34 Microbiology Microbiology: Microbiology 02/03/25 12:35 Urine, Clean Catch Legionella Antigen - Final 02/03/25 12:35 Urine, Clean Catch Streptococcus pneumoniae Antigen (M - Final 02/03/25 08:30 Mucosa - Nose SARS-CoV-2, Influenza & RSV (PCR) - Final Dosing Weight Weight used for dosin.5 kg Estimated Creatinine Clearance Estimated Creatinine Clearance: 49.1 Goal Trough Goal Trough: 15-20 mcg/mL Pharmacy Plan for Drug Dosing Pharmacy Plan for Drug Dosing: Pharmacy Service will continue to monitor and adjust dosing as required. NEW START IV VANCOMYCIN Consulting Physician: Dr. Snyder Indication: Potential PNA Goal Trough: 15-20 SrCr: 1.24 CrCl: 49.1 Comments: Patient with acute hypoxic respiratory failure and CHF exacerbation - afebrile - WBC: 13.3 Other ABX: - Meropenem Vancomycin Dose: 750 mg Q12H Pending Level: 02/05 @ 0130 Date/Time Labs Ordered Labs to be done on [date and time ordered]: 02/05/25 @ 0130
[2025-02-03] MEDS: Meropenem 1 GM in 0.9% Normal Saline (100mL MB+) 100 ML IV ×2 (14:29→20:53)
[2025-02-03] MEDS: 0.9% Normal Saline (250mL Bag) 250 ML 15 ML IV ×2 (14:32→14:33)
[2025-02-03] MEDS: Vancomycin HCl 1,500 MG in 0.9% Normal Saline (500mL Bag) 500 ML 250 MG IV (14:33)
--- NOTE | 2025-02-03 16:01 | CHAPLAIN ---
Type of Pastoral Visit ___ Initial Visit ___ Follow-up Visit ___ On-call Visit ___ General Patient Visit ___ Spiritual Assessment ___ Family Conference ___ Bereavement ___ Rapid Response ___ Code Blue ___ Other (describe below) Pastoral Care Referral From _x__ Patient ___ Family ___ Nurse ___ Physician ___ Joint Terminal Attack Controller ___ Stone Lathe Operator ___ Other (describe below) Sacrament/Intervention ___ Active listening ___ Anointing ___ Judaism ___ Bereavement ___ Communion ___ Vilma exploration ___ ___ Life review ___ Prayer ___ Reconciliation ___ Sacrament of Sick ___ Supportive presence ___ Wedding ___ Other (describe below) Pastoral Comments patient was sleeping and did not awaken to her name; left a calling card; informed RN that a visit will be attempted tomorrow
--- NOTE | 2025-02-03 16:02 | PCM.CONS.C ---
Assessment & Plan Assessment/Plan (1) Acute respiratory failure with hypoxemia: PLAN: Patient presented with hypoxemia and acidosis. Lactic acid was elevated at 6.3. This was a sudden onset of symptoms that occurred after she woke up this morning. She denies any chest pains denies any symptoms that were consistent with what she had with her Takotsubo's cardiomyopathy back in October 2023. BNP was minimally elevated at 933 upper limits of normal being 900 for her age group. Chest x-ray was consistent with pulmonary edema, and troponins were 18, 46, and 55. Repeat echocardiogram done today showed an EF had dropped to 30-35% with segmental wall motion changes consistent with possible reverse Takotsubo's. CTA reportedly shows no evidence of pulmonary embolus. (2) CHF exacerbation: QUALIFIERS: Heart failure type: systolic Qualified Code(s): I50.23 - Acute on chronic systolic (congestive) heart failure PLAN: Patient has a history of heart failure preserved ejection fraction in the past due to volume overload. LVEF is now 30-35% with the appearance of possible reverse Takotsubo syndrome. There are multiple wall motion abnormalities noted along the basal segment of the myocardium. The patient had normal coronary arteries on the heart catheterization October 2023. Enzymes are minimally elevated at 18, 46, and 55. The patient is markedly improved and stabilized and is on nasal cannula at this point in time. Would recommend aggressive medical therapy for LV recovery. Control of blood pressure and support of the respiratory status. (3) Hypertension: QUALIFIERS: Hypertension type: primary hypertension Qualified Code(s): I10 - Essential (primary) hypertension PLAN: Blood pressure is 104/70. Will gently titrate guideline directed medical therapy for LV recovery. PLAN: Plan 1. Recommend reinstitute Coreg at a lower dose 6.25 mg twice daily. 2. Restart losartan at 25 mg every morning tomorrow morning. 3. Add spironolactone 12.5 mg daily this evening. 4. Add Jardiance 10 mg daily starting tomorrow morning. 5. Will titrate guideline directed medical therapy back to her home doses of Coreg 12.5 mg twice daily and losartan 100 mg daily prior to discharge. 6. It is highly likely this is a transient reversible reverse Takotsubo's cardiomyopathy given her known normal coronary arteries 14 months ago. 7. Will treat with guideline directed medical therapy and monitor for chest pain and defer catheterization at this point in time. 8. Will plan on reevaluating LV function in 6 weeks after back on guideline directed medical therapy. HPI Consult Data Date of Consult: 02/03/25 HPI Narrative Reason for Consultation: Acute respiratory distress. HPI Narrative: RAYMON HAAS, is a 54 F who presents with acute respiratory distress and hypoxic respiratory failure. She carries a history of Takotsubo syndrome presenting back in October 2023 with a different presentation. That was profound respiratory depression requiring intubation she did not have chest pains but had ECG changes and elevated enzymes. This episode came on suddenly she got out of bed this morning was in her usual state of health when she went to bed last evening. When she got out of bed she had a sudden onset of shortness of breath and profound hypoxia and was brought to the emergency department. ABG showed a pH of 7.32 pCO2 of 31 and a pO2 of 89 on 50% FiO2 and BiPAP PEEP at 8. Chest x-ray showed some pulmonary venous congestion and edema there was no obvious evidence of pneumonia. The patient had presented with pneumonia in October 2024 but was a different presentation at that time as well. The patient's last echocardiogram December 2023 showed normal LV function EF of 65%. Echocardiogram done today shows an EF of 30-35% with segmental wall motion changes. These include inferior and inferior lateral basal hypokinesis anterior and lateral basal akinesis and hypokinesis of the anterior septum. The apex contracts normally. The patient denies any chest pain today. She did not have an echocardiogram when she was admitted in October 2024 with pneumonia and respiratory distress. The patient does have a history of behavioral health issues and issues with compliance with her CPAP in her home environment. [facility] Medical History Acute on chronic hypoxic respiratory failure Shock Elevated troponin Transaminitis Non-ST elevation CO (NSTEMI) Pneumonia Takotsubo cardiomyopathy Bipolar disorder Anxiety Depression Osteoarthritis Kidney stones Hx of gastroesophageal reflux (GERD) Smoker BiPAP (biphasic positive airway pressure) dependence Asthma Myocardial infarct Chest pain Stroke/cerebrovascular accident Migraines Seizures Ulcerative colitis Hypertension COPD (chronic obstructive pulmonary disease) Home Medications ?Medication ?Instructions ?Recorded ?Last Taken ?Type albuterol sulfate 90 mcg/actuation 2 puff inhalation Q6H PRN COPD 02/02/19 02/02/25 History aerosol inhaler atorvastatin 40 mg tablet 40 mg PO QHS cholesterol 11/07/23 02/02/25 History omeprazole 40 mg capsule,delayed 40 mg PO DAILY GERD 11/07/23 10/30/24 History release sertraline 50 mg tablet 75 mg PO DAILY Mood 11/07/23 02/02/25 History ziprasidone HCl 80 mg capsule 80 mg PO QHS antipsychotic 11/07/23 02/02/25 History fluticasone 100 mcg-salmeterol 50 1 ea inhalation BID allergies 01/10/24 06/21/24 History mcg/dose blistr powdr for inhalation furosemide 40 mg tablet 40 mg PO DAILY edema #60 tabs 05/26/24 02/02/25 Rx losartan 100 mg tablet 100 mg PO DAILY bp 06/22/24 02/02/25 History ziprasidone HCl 60 mg capsule 60 mg PO DAILY bipolar 06/22/24 02/02/25 History carvedilol 12.5 mg tablet 12.5 mg PO BIDCM 30 days #60 tabs 06/25/24 02/02/25 Rx hydroxyzine pamoate 100 mg capsule 50 mg (1/2 x 100 mg) PO BID 06/25/24 02/02/25 Rx Anxiety 3 days #0 caps meloxicam 15 mg tablet 15 mg PO DAILY pain 11/01/24 Unknown History CPAP - Continuous Positive Airway 02/03/25 Unknown History Pressure([facility] INFORMATIONAL USE ONLY) OXYGEN - Supplemental ([facility] 02/03/25 Unknown History INFORMATIONAL USE ONLY) albuterol sulfate 2.5 mg/3 mL 2.5 mg continuous nebulization Q6H 02/03/25 Unknown History (0.083 %) solution for nebulization PRN wheezing Allergy/AdvReac Type Severity Reaction Status Date / Time meperidine (From Demerol) Allergy Other Verified 10/30/24 07:49 metronidazole (From Flagyl) Allergy Hives Verified 10/30/24 07:49 oxycodone (From Percocet) Allergy Hives Verified 10/30/24 07:49 Penicillins Allergy Hives Verified 10/30/24 07:49 aspirin AdvReac Vomiting Verified 10/30/24 07:49 Family History Mother Myocardial infarction Cancer Brother Myocardial infarction Surgical History History of left heart catheterization (~10/2023) Hx of hysterectomy History of appendectomy Social History Smoking Status: Former smoker how long ago did patient quit smoking: Quit 2 weeks ago per patient report on 01/12/2024 alcohol intake: never substance use type: does not use caffeine: Yes (occasionally) ROS Constitutional Constitutional: Reports as per HPI Eyes Eyes: Reports systems reviewed and no addt'l complaints, except as documented ENT HEENT: Reports systems reviewed and no addt'l complaints, except as documented Cardiovascular Cardiovascular: Reports as per HPI Respiratory/Chest Respiratory/Chest: Reports as per HPI Gastrointestinal Gastrointestinal: Reports systems reviewed and no addt'l complaints, except as documented Genitourinary Genitourinary: Reports as per HPI Musculoskeletal Musculoskeletal: Reports systems reviewed and no addt'l complaints, except as documented Integumentary Integumentary: Reports systems reviewed and no addt'l complaints, except as documented Neurologic Neurologic: Reports systems reviewed and no addt'l complaints, except as documented Psychiatric Psychiatric: Reports as per HPI Endocrine Endocrinology: Reports systems reviewed and no addt'l complaints, except as documented Hematologic/Lymphatic Hematologic/Lymphatic: Reports systems reviewed and no addt'l complaints, except as documented Allergic/Immunologic Allergic/Immunologic: Reports systems reviewed and no addt'l complaints, except as documented Physical Exam Const alert and oriented x3 HEENT normocephalic Eyes EOMs intact bilaterally Neck no JVD Neck Narrative: Thick neck Chest inspection of chest normal Resp normal respiratory effort Resp Narrative: Nasal cannula Auscultation: crackles bilateral base Cardio Cardio Narrative: Distant heart tones due to obesity and body habitus. Rate: regular rate Rhythm: regular rhythm Heart Sounds: S1 normal and S2 normal; Negative for click, gallop or murmur GI soft to palpation and non-tender GI Narrative: Obese Extremity no pedal edema Neuro Neuro Narrative: Alert and oriented x 3 Psych mental status grossly normal Charges/Coding Visit Charges Inpatient E&M: 35768 Init Hosp L3 Objective Data Vital Signs: Vital Signs Temp Pulse Resp BP Pulse Ox O2 Del Method O2 Flow Rate 96.4 F L 95 15 104/70 90 Nasal Cannula 6 02/03/25 12:30 02/03/25 15:00 02/03/25 15:00 02/03/25 15:00 02/03/25 15:00 02/03/25 15:00 02/03/25 15:00 FiO2 75 02/03/25 14:00 Oxygen Flow Rate (L/min) 6 Oxygen Delivery Method Nasal Cannula Weight: 175 lb Body Mass Index (BMI) 30.0 Intake & Output: Intake and Output for Last 24 Hours 02/01/25 02/02/25 02/03/25 23:59 23:59 23:59 Intake Total 1001.00 / 1001.00 Balance 1001.00 / 1001.00 Lab / Micro Data Attestation: I reviewed the patient's lab results. 02/03/25 08:34 02/03/25 08:34 Labs: Laboratory Results - last 24 hr 02/03/25 08:34: WBC 13.3 H, RBC 4.84, Hgb 13.7, Hct 42.7, MCV 88.2, MCH 28.3, MCHC 32.1, RDW Std Deviation 46.4 H, RDW Coeff of Joseph 14.5, Plt Count 340, MPV 9.9, Immature Gran % (Auto) 1.500 H, Neut % (Auto) 64.3, Lymph % (Auto) 29.0, [place] % (Auto) 3.1, Eos % (Auto) 1.6, Baso % (Auto) 0.5, Absolute Neuts (auto) 8.6 H, Absolute Lymphs (auto) 3.86, Nucleated RBC % 0, Sodium 141, Potassium 4.1, Chloride 106, Carbon Dioxide 15.5 L, Anion Gap 19 H, BUN 13, Creatinine 1.24 H, Estim Creat Clear Calc 49.12 L, Est GFR (MDRD) Non-Af 51 L, BUN/Creatinine Ratio 10.1, Glucose 235 H, Lactic Acid 6.4 H*, Calcium 8.7, Total Bilirubin 0.21, AST 21, ALT 11, Alkaline Phosphatase 132 H, Troponin T High Sens 18 H D, NT pro BNP II 735 02/03/25 08:34: NT pro BNP II 993 H, Total Protein 6.5, Albumin 3.6, Globulin 2.9, Albumin/Globulin Ratio 1.2 02/03/25 10:34: Troponin T Hi Sens 2 Hr 46 H 02/03/25 12:35: Troponin T Hi Sens 4Hr 55 H* 02/03/25 13:45: Lactic Acid 6.1 H* Micro: Microbiology 02/03/25 12:28 Mucosa - Nasopharyngeal Respiratory Panel (PCR) - Final 02/03/25 12:30 Nasal Secretion MRSA (PCR) - Final 02/03/25 12:35 Urine, Clean Catch Legionella Antigen - Final 02/03/25 12:35 Urine, Clean Catch Streptococcus pneumoniae Antigen (M - Final 02/03/25 08:30 Mucosa - Nose SARS-CoV-2, Influenza & RSV (PCR) - Final ABG Data ABG results: ABG 02/03/25 08:37 Specimen Type ART Sample Site L Radial pH 7.32 L Bicarbonate Actual 16.2 L Total CO2 17 Base Excess -10 L O2 Saturation 96 O2 % 50.0 ABG pCO2 31.2 L ABG pO2 89 Respiration Rate 12 O2 Delivery Device Not entered Vent Mode BiLevel POC PEEP 8 Rhythm Strip Rhythm Strip: Sinus Rhythm Rate: 87 Cardiology Labs/Tests 02/03/25 08:34: WBC 13.3 H, RBC 4.84, Hgb 13.7, Hct 42.7, MCV 88.2, MCH 28.3, MCHC 32.1, Plt Count 340, MPV 9.9, Immature Gran % (Auto) 1.500 H, Neut % (Auto) 64.3, Lymph % (Auto) 29.0, [place] % (Auto) 3.1, Eos % (Auto) 1.6, Baso % (Auto) 0.5, Absolute Neuts (auto) 8.6 H, Nucleated RBC % 0, Sodium 141, Potassium 4.1, Chloride 106, Carbon Dioxide 15.5 L, Anion Gap 19 H, BUN 13, Creatinine 1.24 H, Est GFR (MDRD) Non-Af 51 L, BUN/Creatinine Ratio 10.1, Glucose 235 H, Lactic Acid 6.4 H*, Calcium 8.7, Total Bilirubin 0.21 02/03/25 08:37: pH 7.32 L, Bicarbonate Actual 16.2 L, Base Excess -10 L, O2 Saturation 96, ABG pCO2 31.2 L, ABG pO2 89 02/03/25 13:45: Lactic Acid 6.1 H* Rhythm: EKG: ECHO: Stress Test: Cardiac Cath: PCI: CT Surgery: Holter monitor: EPS: PPM: CXR: Chest CT Scan: Radiography Diagnostic Testing: Radiology Impression Chest X-Ray 02/03/25 09:20 IMPRESSION: Findings suggestive of pulmonary edema. Follow-up recommended. Reading Location: [place] [address] Echocardiogram 02/03/25 10:47 Interpretation Summary The estimated ejection fraction is 30-35 %. Left ventricular basal wall segments severely hypokinetic to akinetic. [place] migue normally. Consider reverse Takotsubo's. Mild to moderate (1-2+) tricuspid valve insufficiency. Moderate to severe mitral valve regurgitation Moderate (2+) aortic valve insufficiency. Ordering Physician: Leonard Rebollar Performed By: Sandra Hoang RDCS Chest CTA 02/03/25 12:14 IMPRESSION: No evidence of pulmonary embolism. Multiple changes as described. Reading Location: [place] [address] KAYKAY Risk Score for UA/STEMI Assesmment (YES = 1) Risk Stratification Applicable: Yes Age > or = 65: No > or = 3 CAD risk factors (HTN, Hypercholesterolemia, Diabetes, family hx, current smoker): No Known CAD (Stenosis > or = 50%): No ASA used in past 7 days: No Severe angina (> or = 2 episodes in 24 hrs): No EKG ST change > or = 0.5mm: No Positive cardiac markers: Yes Score KAYKAY Risk Score of mortality/ recurrent ischemic event over the next 14 days: 0-1 = 4.7% - Low Risk
[2025-02-03 16:57] LABS: Magnesium 1.8 mg/dL (1.5-2.2); Procalcitonin 0.10 ng/mL (<=0.10)
[2025-02-03] MEDS: hydrOXYzine PAM 25 MG Capsule 50 MG PO (20:53)
[2025-02-04] VITALS (19 sets, daily range): BP systolic 105–143; BP diastolic 55–83; PULSE 66–92; RESP 10–22; TEMP 36.3–36.6; O2SAT 92–99; BMI 29.2
[2025-02-04] MEDS: Vancomycin HCl 750 MG in 0.9% Normal Saline (250mL Bag) 250 ML 250 MG IV (01:52)
[2025-02-04 04:48] LABS: Cholesterol 149 mg/dL (<=200); Low Density Lipoprotein Calc. 66 mg/dL; Triglycerides 146 mg/dL; Very Low Density Lipoprotein 29 mg/dL (5-40); cholesterol:hdl ratio screen 2.79
[2025-02-04] MEDS: Meropenem 1 GM in 0.9% Normal Saline (100mL MB+) 100 ML IV ×3 (05:06→21:41)
[2025-02-04] MEDS: 0.9% Saline Lock 10 ML Syringe IV ×4 (05:06→17:02)
--- NOTE | 2025-02-04 07:16 | PCM.PN.HOSP ---
Reason for Visit Chief Complaint: Sudden onset of shortness of breath today Objective Data Objective Data Vital Signs: Vital Signs Temp Pulse Resp BP Pulse Ox O2 Del Method O2 Flow Rate 97.8 F 70 14 122/62 H 99 High Flow 9 02/04/25 04:00 02/04/25 07:00 02/04/25 07:00 02/04/25 07:00 02/04/25 07:00 02/04/25 07:00 02/04/25 07:00 FiO2 50 02/04/25 04:04 Oxygen Flow Rate (L/min) 9 Oxygen Delivery Method High Flow Weight: 175 lb 14.862 oz Body Mass Index (BMI) 30.0 Intake & Output: Intake and Output for Last 24 Hours 02/02/25 02/03/25 02/04/25 23:59 23:59 23:59 Intake Total 1893.50 / 2093.50 825.75 / 825.75 Output Total 1770 / 1770 400 / 400 Balance 123.50 / 323.50 425.75 / 425.75 Lab / Micro Data 02/03/25 08:34 02/03/25 08:34 Labs: Laboratory Results - last 24 hr 02/03/25 08:34: WBC 13.3 H, RBC 4.84, Hgb 13.7, Hct 42.7, MCV 88.2, MCH 28.3, MCHC 32.1, RDW Std Deviation 46.4 H, RDW Coeff of Joseph 14.5, Plt Count 340, MPV 9.9, Immature Gran % (Auto) 1.500 H, Neut % (Auto) 64.3, Lymph % (Auto) 29.0, [place] % (Auto) 3.1, Eos % (Auto) 1.6, Baso % (Auto) 0.5, Absolute Neuts (auto) 8.6 H, Absolute Lymphs (auto) 3.86, Nucleated RBC % 0, Sodium 141, Potassium 4.1, Chloride 106, Carbon Dioxide 15.5 L, Anion Gap 19 H, BUN 13, Creatinine 1.24 H, Estim Creat Clear Calc 49.12 L, Est GFR (MDRD) Non-Af 51 L, BUN/Creatinine Ratio 10.1, Glucose 235 H, Lactic Acid 6.4 H*, Calcium 8.7, Total Bilirubin 0.21, AST 21, ALT 11, Alkaline Phosphatase 132 H, Troponin T High Sens 18 H D, NT pro BNP II 735 02/03/25 08:34: NT pro BNP II 993 H, Total Protein 6.5, Albumin 3.6, Globulin 2.9, Albumin/Globulin Ratio 1.2 02/03/25 10:34: Troponin T Hi Sens 2 Hr 46 H 02/03/25 12:35: Magnesium 1.8, Troponin T Hi Sens 4Hr 55 H*, Procalcitonin 0.10 02/03/25 13:45: Lactic Acid 6.1 H* 02/04/25 04:20: Triglycerides 146, Cholesterol 149, LDL Cholesterol, Calc 66, VLDL Cholesterol 29, HDL Cholesterol 54, Cholesterol/HDL Ratio 2.79 Micro: Microbiology 02/03/25 12:28 Mucosa - Nasopharyngeal Respiratory Panel (PCR) - Final 02/03/25 12:30 Nasal Secretion MRSA (PCR) - Final 02/03/25 12:35 Urine, Clean Catch Legionella Antigen - Final 02/03/25 12:35 Urine, Clean Catch Streptococcus pneumoniae Antigen (M - Final 02/03/25 08:30 Mucosa - Nose SARS-CoV-2, Influenza & RSV (PCR) - Final ABG Data ABG results: ABG 02/03/25 08:37 Specimen Type ART Sample Site L Radial pH 7.32 L Bicarbonate Actual 16.2 L Total CO2 17 Base Excess -10 L O2 Saturation 96 O2 % 50.0 ABG pCO2 31.2 L ABG pO2 89 Respiration Rate 12 O2 Delivery Device Not entered Vent Mode BiLevel POC PEEP 8 Radiography Diagnostic Testing: Radiology Impression Chest X-Ray 02/03/25 09:20 IMPRESSION: Findings suggestive of pulmonary edema. Follow-up recommended. Reading [facility] Ech[facility] 02/03/25 10:47 Interpretation Summary The estimated ejection fraction is 30-35 %. Left ventricular basal wall segments severely hypokinetic to akinetic. [place] migue normally. Consider reverse Takotsubo's. Mild to moderate (1-2+) tricuspid valve insufficiency. Moderate to severe mitral valve regurgitation Moderate (2+) aortic valve insufficiency. Ordering Physician: Leonard Rebollar Performed By: Sandra Hoang, RDCS Chest CTA 02/03/25 12:14 IMPRESSION: No evidence of pulmonary embolism. Multiple changes as described. Reading Location: [place] [address] Rhythm Strip Rhythm Strip: Sinus Rhythm Rate: 87 Physical Exam Narrative General: Alert, Oriented x3, Cooperative. BMI 26.4 kg/m? HEENT: Atraumatic, PERRLA, EOMI, Normocephalic. Oral: On BiPAP. Neck: Supple, No JVD, Negative Carotid Bruits Chest wall/Lungs: Air entry severely diminished in all lung uribe. Bilateral lung bases fine crepitations Cardiovascular: Sinus tachycardia normal S1,S2, systolic murmur Abdomen: Bowel Sounds Present, Soft, Non Tender, Non-Distended : No dysuria. No renal angle tenderness. No suprapubic tenderness. Extremities: No edema, Capillary Refill Less than 3 Seconds Skin: No rashes, No breakdown Musculoskeletal: No Tenderness to Palpation of Joints or Extremities Neurological: Cranial nerves II-XII grossly intact, DTR 2+/4. No acute focal neurological deficit. Psych/Mental Status: Flat affect Assessment & Plan Assessment/Plan (1) CHF exacerbation: QUALIFIERS: Heart failure type: systolic Qualified Code(s): I50.23 - Acute on chronic systolic (congestive) heart failure (2) Acute hypoxic respiratory failure: PLAN: Plan This 54-year-old female is being admitted for acute hypoxic respiratory failure predominantly from heart failure exacerbation and COPD exacerbation 1. Acute hypoxic respiratory failure predominantly acute on chronic HFpEF : Patient is being admitted in ICU on BiPAP. ABG 7.32/31.2/89 on 50% FiO2, RR 12 on BiPAP PEEP 8. Chest x-ray shows pulmonary venous congestion/edema and blunting of bilateral CP angles patient blood pressure was low in the ED systolic 100 which improved after 20 mg of IV Lasix therefore another dose of 20 mg ordered. Lasix 40 mL IV twice daily to continue. Heart failure core measures including intake and output, fluid restriction less than 1500 mL, daily weight monitoring, kidney and electrolytes monitoring. Last echo shows EF 65% with diastolic heart failure, LA enlarged. Limited echo ordered. BNP normal. 02/04: Overall, improvement of shortness of breath and respiratory distress. Patient was on BiPAP for 3 hours last night. No chest pain. Echo findings discussed with the patient which shows EF 30 to 35% with reverse Takotsubo cardiomyopathy, apex migue normally with hypokinetic/akinetic basal wall. Moderately severe MR, 2+ TR and 2+ AI suggestive of significant valvular heart. 2. Mild COPD exacerbation: Triple PCR for SARS-CoV-2, flu and RSV are negative. Patient is being managed on scheduled bronchodilator, IV Solu-Medrol, Mucinex, incentive spirometry and Pep. IV azithromycin ordered. Respiratory panel ordered. Urinary antigens ordered 02/[address] with [address] board operator. CT chest shows significant infiltrates therefore continue broad-spectrum antibiotic IV meropenem and vancomycin. Pneumonia workup including respiratory panel and urinary antigens are negative. Continue BiPAP as needed 3. Mild troponin elevation: Troponin is 18, 46. Third pending. Patient denies any chest pressure. She had troponin elevations in the past 4. CKD stage IIIa: Patient creatinine baseline is about 1.2-1.3. Lactic acid high 6.4 probably due to hypoxia and venous congestion. Monitor kidney function. 02/04 creatinine is 1.24. Monitor kidney function. Today's BMP. 5. Paroxysmal A-fib : Currently patient in sinus tachycardia. On carvedilol, resume from today's evening. 6. Hypertension, dyslipidemia: On carvedilol and statin continued. Hold Lasix and losartan 7. Other comorbidities include GERD and anxiety and depression: On sertraline and ziprasidone continued. 8. Mild overweight: BMI 26.4 kg/m?. DVT prophylaxis, high risk: Lovenox 40 mg subcu daily Living will/advanced directive/end of life care: Patient does not have living will or advanced directive. She does not have designated power of gas dispatcher for health. His son is next of kin. After discussion of benefits/risks procedures involved with full code, DNR CC arrest and DNR CC, the patient opted for full code. Patient does want artificial life support including intubation, tube feed, ventilator and/chest compression, central venous catheter, vasopressor and DC shock if needed Total time spent in [id number] encounter in discussion of advanced directive 17 minutes. Microbiology Past 72 Hours 02/03/25 12:28 Mucosa - Nasopharyngeal Respiratory Panel (PCR) - Final 02/03/25 12:30 Nasal Secretion MRSA (PCR) - Final 02/03/25 12:35 Urine, Clean Catch Legionella Antigen - Final 02/03/25 12:35 Urine, Clean Catch Streptococcus pneumoniae Antigen (M - Final 02/03/25 08:30 Mucosa - Nose SARS-CoV-2, Influenza & RSV (PCR) - Final Laboratory Results 02/03/25 08:37: Specimen Type ART, Sample Site L Radial, pH 7.32 L, Bicarbonate Actual 16.2 L, Total CO2 17, Base Excess -10 L, O2 Saturation 96, O2 % 50.0, ABG pCO2 31.2 L, ABG pO2 89, Respiration Rate 12, O2 Delivery Device Not entered, Vent Mode BiLevel, POC PEEP 8 02/03/25 10:34: Troponin T Hi Sens 2 Hr 46 H 02/03/25 12:35: Magnesium 1.8, Troponin T Hi Sens 4Hr 55 H*, Procalcitonin 0.10 02/03/25 13:45: Lactic Acid 6.1 H* 02/04/25 04:20: Triglycerides 146, Cholesterol 149, LDL Cholesterol, Calc 66, VLDL Cholesterol 29, HDL Cholesterol 54, Cholesterol/HDL Ratio 2.79 Echo 12/28/2023 Normal LV size. Left ventricular systolic function is normal. The left ventricular ejection fraction is 65 %. Structurally normal valves. Compared to previous study, the left ventricular systolic function has improved. Clinical Impression(s) from Imaging Studies Echocardiogram 02/03/25 10:47 Interpretation Summary The estimated ejection fraction is 30-35 %. Left ventricular basal wall segments severely hypokinetic to akinetic. [place] migue normally. Consider reverse Takotsubo's. Mild to moderate (1-2+) tricuspid valve insufficiency. Moderate to severe mitral valve regurgitation Moderate (2+) aortic valve insufficiency. Chest CTA 02/03/25 12:14 IMPRESSION: No evidence of pulmonary embolism. Multiple changes as described. Charges/Coding Visit Charges Inpatient E&M: 48391 Subs Hosp L3
--- NOTE | 2025-02-04 07:46 | PCM.PN.INT ---
Assessment & Plan Assessment/Plan (1) Acute respiratory failure with hypoxemia: PLAN: Plan RECOMMENDATIONS: 1. Wean supplemental oxygen to maintain saturations 88 to 92%. 2. Empiric BiPAP therapy with naps and nightly, given history of obstructive sleep apnea. 3. Continue scheduled bronchodilators and steroids. 4. Continue antimicrobials. 5. Diuresis as tolerated by hemodynamics and renal function. 6. Cardiology following to assist with medical management. 7. Continue appropriate DVT prophylaxis. IMPRESSIONS: 1. Acute hypoxemic respiratory failure Potentially related to COPD exacerbation versus acute decompensated heart failure. The patient does not routinely utilize supplemental oxygen throughout the day, but rather wears 2 L/min of oxygen nightly. She does have a known history of COPD of unclear severity and has been lost to outpatient pulmonary follow-up. In addition to scheduled bronchodilators and steroids, I would recommend that we continue gentle diuresis as tolerated by hemodynamics and renal function along with empiric antimicrobials, given CTA chest findings. Pulmonary embolism was ruled out. 2. History of obstructive sleep apnea/nocturnal hypoxemia Although the patient has a known history of obstructive sleep apnea, she is noncompliant with nocturnal PAP therapy. While admitted to the hospital, we will plan to continue BiPAP therapy with naps and nightly. 3. Troponin elevation Most likely secondary to demand ischemia in the setting of presenting hypoxemia. The patient was noted to have a reverse Takotsubo cardiomyopathy noted on echocardiogram. Will defer ongoing medical management regarding the aforementioned to cardiology. 4. History of chronic kidney disease/obesity/history of Takotsubo cardiomyopathy/anxiety/depression Complicates care, management, recovery and prognosis. Continue supportive measures as noted above. CODE STATUS: Full code (verified with patient at the bedside) This note was generated with [employer] dictation software. It may contain incorrect words, spelling, and punctuation that were not noted in checking the note before signing. Subjective Subjective The patient was seen and examined at the bedside this morning. Events from the last 24 hours have been reviewed. The patient is currently afebrile, hemodynamically stable and maintaining appropriate oxygen saturations on 4 L/min via nasal cannula. The patient appears much more comfortable from a respiratory perspective than yesterday. Objective Data Objective Data The patient's most recent lab work, culture data and imaging studies have all been personally reviewed. Surface echocardiogram demonstrated normal LV size with an ejection fraction of 30 to 35%. Strep and urine Legionella antigens were negative. Respiratory viral panel was negative. COVID, influenza and RSV PCR's were negative. Blood cultures are pending. Vital Signs: Vital Signs Temp Pulse Resp BP Pulse Ox O2 Del Method O2 Flow Rate 97.8 F 83 19 H 122/62 H 99 Nasal Cannula 8 02/04/25 04:00 02/04/25 07:28 02/04/25 07:28 02/04/25 07:00 02/04/25 07:28 02/04/25 07:28 02/04/25 07:28 FiO2 50 02/04/25 04:04 Oxygen Flow Rate (L/min) 8 Oxygen Delivery Method Nasal Cannula Weight: 175 lb 14.862 oz Body Mass Index (BMI) 30.0 Intake & Output: Intake and Output for Last 24 Hours 02/02/25 02/03/25 02/04/25 23:59 23:59 23:59 Intake Total 1893.50 / 2093.50 825.75 / 825.75 Output Total 1770 / 1770 400 / 400 Balance 123.50 / 323.50 425.75 / 425.75 Lab / Micro Data Attestation: I reviewed the patient's lab results. 02/04/25 10:30 02/04/25 04:20 Labs: Laboratory Results - last 24 hr 02/03/25 08:34: WBC 13.3 H, RBC 4.84, Hgb 13.7, Hct 42.7, MCV 88.2, MCH 28.3, MCHC 32.1, RDW Std Deviation 46.4 H, RDW Coeff of Joseph 14.5, Plt Count 340, MPV 9.9, Immature Gran % (Auto) 1.500 H, Neut % (Auto) 64.3, Lymph % (Auto) 29.0, [place] % (Auto) 3.1, Eos % (Auto) 1.6, Baso % (Auto) 0.5, Absolute Neuts (auto) 8.6 H, Absolute Lymphs (auto) 3.86, Nucleated RBC % 0, Sodium 141, Potassium 4.1, Chloride 106, Carbon Dioxide 15.5 L, Anion Gap 19 H, BUN 13, Creatinine 1.24 H, Estim Creat Clear Calc 49.12 L, Est GFR (MDRD) Non-Af 51 L, BUN/Creatinine Ratio 10.1, Glucose 235 H, Lactic Acid 6.4 H*, Calcium 8.7, Total Bilirubin 0.21, AST 21, ALT 11, Alkaline Phosphatase 132 H, Troponin T High Sens 18 H D, NT pro BNP II 735 02/03/25 08:34: NT pro BNP II 993 H, Total Protein 6.5, Albumin 3.6, Globulin 2.9, Albumin/Globulin Ratio 1.2 02/03/25 10:34: Troponin T Hi Sens 2 Hr 46 H 02/03/25 12:35: Magnesium 1.8, Troponin T Hi Sens 4Hr 55 H*, Procalcitonin 0.10 02/03/25 13:45: Lactic Acid 6.1 H* 02/04/25 04:20: Triglycerides 146, Cholesterol 149, LDL Cholesterol, Calc 66, VLDL Cholesterol 29, HDL Cholesterol 54, Cholesterol/HDL Ratio 2.79 Micro: Microbiology 02/03/25 12:28 Mucosa - Nasopharyngeal Respiratory Panel (PCR) - Final 02/03/25 12:30 Nasal Secretion MRSA (PCR) - Final 02/03/25 12:35 Urine, Clean Catch Legionella Antigen - Final 02/03/25 12:35 Urine, Clean Catch Streptococcus pneumoniae Antigen (M - Final 02/03/25 08:30 Mucosa - Nose SARS-CoV-2, Influenza & RSV (PCR) - Final ABG Data ABG results: ABG 02/03/25 08:37 Specimen Type ART Sample Site L Radial pH 7.32 L Bicarbonate Actual 16.2 L Total CO2 17 Base Excess -10 L O2 Saturation 96 O2 % 50.0 ABG pCO2 31.2 L ABG pO2 89 Respiration Rate 12 O2 Delivery Device Not entered Vent Mode BiLevel POC PEEP 8 Radiography Diagnostic Testing: Radiology Impression Chest X-Ray 02/03/25 09:20 IMPRESSION: Findings suggestive of pulmonary edema. Follow-up recommended. Reading Location: [facility]1 Echocardiogram 02/03/25 10:47 Interpretation Summary The estimated ejection fraction is 30-35 %. Left ventricular basal wall segments severely hypokinetic to akinetic. [place] migue normally. Consider reverse Takotsubo's. Mild to moderate (1-2+) tricuspid valve insufficiency. Moderate to severe mitral valve regurgitation Moderate (2+) aortic valve insufficiency. Ordering Physician: Leonard Rebollar Performed By: Sandra Hoang RDCS Chest CTA 02/03/25 12:14 IMPRESSION: No evidence of pulmonary embolism. Multiple changes as described. Reading Location: [place] [address] Rhythm Strip Rhythm Strip: Sinus Rhythm Rate: 87 Physical Exam Const alert, oriented x3 and no apparent distress Constitutional Narrative: Resting comfortably in bed on nasal cannula supplemental oxygen. General Appearance: cooperative HEENT normocephalic, head/scalp atraumatic and moist oral mucous membranes Eyes PERRL, EOMs intact bilaterally and conjunctivae normal Neck supple General: trachea midline Chest inspection of chest normal Resp normal respiratory effort and no use of accessory muscles Effort and Inspection: able to speak in complete sentences Auscultation: rales and diminished lung sounds Cardio regular rate and regular rhythm GI normal to inspection, nondistended, normoactive bowel sounds Extremity no clubbing, cyanosis or edema Skin no rashes or lesions noted Neuro CN's II-XII intact bilaterally, moves all extremities and no focal motor deficits Psych cooperative and affect normal Charges/Coding Visit Charges Inpatient E&M: 58579 Subs Hosp L2
[2025-02-04] MEDS: hydrOXYzine PAM 25 MG Capsule 50 MG PO ×2 (08:05→21:43)
--- NOTE | 2025-02-04 09:08 | PCM.PN.CARD ---
Subjective Subjective Patient is resting comfortably in the recumbent station in bed on nasal cannula O2. She denies any chest pain or any significant shortness of breath. Objective Data Vital Signs: Vital Signs Temp Pulse Resp BP Pulse Ox O2 Del Method O2 Flow Rate 97.4 F L 83 13 127/61 H 96 Nasal Cannula 4 02/04/25 09:00 02/04/25 09:00 02/04/25 09:00 02/04/25 09:00 02/04/25 09:00 02/04/25 09:00 02/04/25 09:00 FiO2 50 02/04/25 04:04 Oxygen Flow Rate (L/min) 4 Oxygen Delivery Method Nasal Cannula Weight: 175 lb 14.862 oz Body Mass Index (BMI) 30.0 Intake & Output: Intake and Output for Last 24 Hours 02/02/25 02/03/25 02/04/25 23:59 23:59 23:59 Intake Total 1893.50 / 2093.50 925.75 / 925.75 Output Total 1770 / 1770 900 / 900 Balance 123.50 / 323.50 25.75 / 25.75 Lab / Micro Data Attestation: I reviewed the patient's lab results. 02/03/25 08:34 02/03/25 08:34 Labs: Laboratory Results - last 24 hr 02/03/25 08:34: Lactic Acid 6.4 H*, NT pro BNP II 993 H 02/03/25 10:34: Troponin T Hi Sens 2 Hr 46 H 02/03/25 12:35: Magnesium 1.8, Troponin T Hi Sens 4Hr 55 H*, Procalcitonin 0.10 02/03/25 13:45: Lactic Acid 6.1 H* 02/04/25 04:20: Triglycerides 146, Cholesterol 149, LDL Cholesterol, Calc 66, VLDL Cholesterol 29, HDL Cholesterol 54, Cholesterol/HDL Ratio 2.79 Micro: Microbiology 02/03/25 12:28 Mucosa - Nasopharyngeal Respiratory Panel (PCR) - Final 02/03/25 12:30 Nasal Secretion MRSA (PCR) - Final 02/03/25 12:35 Urine, Clean Catch Legionella Antigen - Final 02/03/25 12:35 Urine, Clean Catch Streptococcus pneumoniae Antigen (M - Final 02/03/25 08:30 Mucosa - Nose SARS-CoV-2, Influenza & RSV (PCR) - Final Rhythm Strip Rhythm Strip: Sinus Rhythm Rate: 80 Cardiology Labs/Tests 02/03/25 08:34: Lactic Acid 6.4 H* 02/03/25 12:35: Magnesium 1.8 02/03/25 13:45: Lactic Acid 6.1 H* 02/04/25 04:20: Triglycerides 146, Cholesterol 149, VLDL Cholesterol 29, HDL Cholesterol 54, Cholesterol/HDL Ratio 2.79 Rhythm: EKG: ECHO: Stress Test: Cardiac Cath: PCI: CT Surgery: Holter monitor: EPS: PPM: CXR: Chest CT Scan: Radiography Diagnostic Testing: Radiology Impression Chest X-Ray 02/03/25 09:20 IMPRESSION: Findings suggestive of pulmonary edema. Follow-up recommended. Reading Location: [facility] Echocardiogram 02/03/25 10:47 Interpretation Summary The estimated ejection fraction is 30-35 %. Left ventricular basal wall segments severely hypokinetic to akinetic. [place] migue normally. Consider reverse Takotsubo's. Mild to moderate (1-2+) tricuspid valve insufficiency. Moderate to severe mitral valve regurgitation Moderate (2+) aortic valve insufficiency. Ordering Physician: Leonard Rebollar Performed By: Sandra Hoang MADHAV Chest CTA 02/03/25 12:14 IMPRESSION: No evidence of pulmonary embolism. Multiple changes as described. Reading Location: [facility] Physical Exam Const alert and oriented x3 HEENT normocephalic Eyes EOMs intact bilaterally Neck no JVD Neck Narrative: Thick neck unable to appreciate any JVD at 30 degrees. Chest inspection of chest normal Resp normal respiratory effort Auscultation: crackles bilateral base Cardio Cardio Narrative: Very distant heart tones due to body habitus and increased AP diameter. Rate: regular rate Rhythm: regular rhythm Heart Sounds: S1 normal and S2 normal; Negative for click, gallop or murmur GI GI Narrative: Obese Extremity no pedal edema Psych mental status grossly normal Assessment & Plan Assessment/Plan (1) Acute respiratory failure with hypoxemia: PLAN: Patient's respiratory failure appears to be improving. This is most likely multifactorial related to her lung disease as well as what appears to be reverse Takotsubo syndrome. Further evaluation and treatment of her pulmonary status per the ICU team. (2) CHF exacerbation: QUALIFIERS: Heart failure type: systolic Qualified Code(s): I50.23 - Acute on chronic systolic (congestive) heart failure PLAN: Patient appears to have a minor exacerbation of her CHF given that her BNP is minimally elevated at 933 with the upper limits of normal being 900 for her age. It is possible given her obesity that the BMP is artificially depressed. She does not appear to be significantly volume overloaded. I would recommend that she get back on LV recovery medications given her EF of 35% on this admission consistent with reverse Takotsubo syndrome. Treatment would be due reinstitute her Coreg, losartan, and furosemide at her home doses as blood pressure and heart rate will tolerate. (3) Hypertension: QUALIFIERS: Hypertension type: primary hypertension Qualified Code(s): I10 - Essential (primary) hypertension PLAN: Continue to reinstitute home medical therapy. (4) Takotsubo cardiomyopathy: PLAN: Patient should follow-up in the [facility] office in 10 to 14 days after discharge. She will need to be continued on aggressive medical therapy with a combination of her Coreg losartan and furosemide for LV recovery. A repeat limited echocardiogram should be performed in approximately 6 to 12 weeks to reevaluate LV recovery. The patient has known normal coronary arteries on a catheterization in October 2023. PLAN: Plan 1. Titrate home medical therapy back to home doses. 2. From a cardiovascular standpoint no further evaluation is indicated at this time. 3. After guideline directed medical therapy is maximized the patient will be reevaluated with limited echo in the ambulatory setting in 6 to 12 weeks. 4. The patient follow-up in the [facility] office in 10 to 14 days after discharge. 5. Please call if further assistance is needed. Charges/Coding Visit Charges Inpatient E&M: 69549 Subs Hosp L2
[2025-02-04 10:40] LABS: Hematocrit 38.6 % (37-47); Hemoglobin 12.9 g/dL (12.0-15.0); Immature Granulocytes Count 0.090 X10^3/uL (0.0-0.0); Mean Corp Hgb Conc 33.4 g/dL (32-36); Mean Corpuscular Volume 84.5 fL (81-99); Mean Platelet Vol. 10.3 fl (6.2-12.0); NRBC Flagged by Analyzer 0 % (0-5); Platelet Count 269 K/mm3 (150-450); RBC Distribution Width CV 14.6 % (11.6-14.6); RBC Distribution Width SD 44.6 fl (35.1-43.9); Red Blood Count 4.57 M/mm3 (4.2-5.4); White Blood Count 19.7 K/mm3 (4.4-11.0)
[2025-02-04 10:47] LABS: Anion Gap 15 (5-15); BUN 14 mg/dL (4-19); BUN/Creat Ratio 11.1 RATIO (10-20); Calcium,Total 8.3 mg/dL (7.6-11.0); Carbon Dioxide 19.6 mmol/L (21.0-32.0); Chloride 104 mmol/L (98-108); Estimated Creatinine Clearance 50.75 ml/min (50-250); Glucose 176 mg/dL (70-99); Potassium 3.6 mmol/L (3.3-5.1)
--- NOTE | 2025-02-04 11:40 | CHAPLAIN ---
Type of Pastoral Visit ___ Initial Visit ___ Follow-up Visit ___ On-call Visit ___ General Patient Visit ___ Spiritual Assessment ___ Family Conference ___ Bereavement ___ Rapid Response ___ Code Blue ___ Other (describe below) Pastoral Care Referral From ___ Patient ___ Family ___ Nurse ___ Physician ___ Senior Investment Analyst ___ Bond Analyst ___ Other (describe below) Sacrament/Intervention ___ Active listening ___ Anointing ___ Evangelical ___ Bereavement ___ Communion ___ Vilma exploration ___ ___ Life review ___ Prayer ___ Reconciliation ___ Sacrament of Sick ___ Supportive presence ___ Wedding ___ Other (describe below) Pastoral Comments patient awakened to her name; pt speaks of feeling better since yesterday and that she is optimistic about getting better; pt denies worries or concerns; pt is offered spiritual care but she states that she will be fine
--- NOTE | 2025-02-04 13:15 | CASEMGMT ---
RN CM Face to Face with patient for initial transition planning/care coordination assessment. RN CM introduced self and role at [facility]. Patient lying in bed, alert and oriented. Patient willing to participate in assessment and is able to answer all questions appropriately. Care providers, pharmacy, and demographics verified. Strata:3 PCP: Susy Sanders Specialists: MAI Holcomb; VIRAL, ropeman Preferred Pharmacy: [facility] Insurance: [facility] Prescription Benefit: yes Living Will/HPOA: none LNOK: Mother, son, boyfriend Living Arrangements: Patient lives boyfriend in a 2nd floor apartment with 18 steps. Patient is independent and able to ambulate stairs. Transportation: Lyft, Boyfriend DME/HHC: Patient states she has cpap, nebulizer, pulse ox, and home oxygen through [employer] with portability. Patient has had [facility] in the past. Patient wishes to discharge home, denies need for home health at this time. Patient states she has no further needs or concerns at this time. CM to follow for discharge planning needs that may arise. Disposition Plan: Patient to discharge home with family support and follow-up plans in place. Ivy JAY, RN, CM
[2025-02-05] VITALS (8 sets, daily range): BP systolic 108–162; BP diastolic 47–67; PULSE 66–76; RESP 14–20; TEMP 36.6–36.8; O2SAT 93–100
[2025-02-05] MEDS: Meropenem 1 GM in 0.9% Normal Saline (100mL MB+) 100 ML IV (05:47)
--- NOTE | 2025-02-05 08:39 | PCM.PN.HOSP ---
Reason for Visit Chief Complaint: Sudden onset of shortness of breath today Objective Data Objective Data Vital Signs: Vital Signs Temp Pulse Resp BP Pulse Ox O2 Del Method O2 Flow Rate 98.3 F 68 14 120/47 L 98 Nasal Cannula 2 02/05/25 01:02/05/25 01:02/05/25 01:02/05/25 01:02/05/25 01:02/05/25 08:06 02/05/25 08:06 FiO2 50 02/04/25 04:04 Oxygen Flow Rate (L/min) 2 Oxygen Delivery Method Nasal Cannula Weight: 170 lb 3.15 oz Body Mass Index (BMI) 29.2 Intake & Output: Intake and Output for Last 24 Hours 02/03/25 02/04/25 02/05/25 23:59 23:59 23:59 Intake Total 1893.50 / 2093.50 1385.75 / 1385.75 100 / 100 Output Total 1770 / 1770 2300 / 2300 Balance 123.50 / 323.50 -914.25 / -914.25 100 / 100 Lab / Micro Data 02/04/25 10:30 02/04/25 04:20 Labs: Laboratory Results - last 24 hr 02/04/25 04:20: Sodium 138, Potassium 3.6, Chloride 104, Carbon Dioxide 19.6 L, Anion Gap 15, BUN 14, Creatinine 1.28 H, Estim Creat Clear Calc 50.75, Est GFR (MDRD) Non-Af 49 L, BUN/Creatinine Ratio 11.1, Glucose 176 H, Calcium 8.3 02/04/25 10:30: WBC 19.7 H, RBC 4.57, Hgb 12.9, Hct 38.6, MCV 84.5, MCH 28.2, MCHC 33.4, RDW Std Deviation 44.6 H, RDW Coeff of Joseph 14.6, Plt Count 269, MPV 10.3, Immature Gran % (Auto) 0.500, Neut % (Auto) 90.7 H, Lymph % (Auto) 6.3 L, [place] % (Auto) 2.3, Eos % (Auto) 0.0, Baso % (Auto) 0.2, Absolute Neuts (auto) 17.9 H, Absolute Lymphs (auto) 1.23, Nucleated RBC % 0 Micro: Microbiology 02/03/25 08:53 Blood Culture (Wb) - Right Forearm Blood Culture - Preliminary No growth in 48 hours. 02/03/25 08:34 Blood Culture (Wb) - Arm Right Blood Culture - Preliminary No growth in 48 hours. 02/03/25 12:28 Mucosa - Nasopharyngeal Respiratory Panel (PCR) - Final 02/03/25 12:30 Nasal Secretion MRSA (PCR) - Final 02/03/25 12:35 Urine, Clean Catch Legionella Antigen - Final 02/03/25 12:35 Urine, Clean Catch Streptococcus pneumoniae Antigen (M - Final 02/03/25 08:30 Mucosa - Nose SARS-CoV-2, Influenza & RSV (PCR) - Final Rhythm Strip Rhythm Strip: Sinus Rhythm Rate: 80 Physical Exam Narrative General: Alert, Oriented x3, Cooperative. BMI 26.4 kg/m? HEENT: Atraumatic, PERRLA, EOMI, Normocephalic. Oral: On BiPAP. Neck: Supple, No JVD, Negative Carotid Bruits Chest wall/Lungs: Air entry severely diminished in all lung uribe. Bilateral lung bases fine crepitations Cardiovascular: Sinus tachycardia normal S1,S2, systolic murmur Abdomen: Bowel Sounds Present, Soft, Non Tender, Non-Distended : No dysuria. No renal angle tenderness. No suprapubic tenderness. Extremities: No edema, Capillary Refill Less than 3 Seconds Skin: No rashes, No breakdown Musculoskeletal: No Tenderness to Palpation of Joints or Extremities Neurological: Cranial nerves II-XII grossly intact, DTR 2+/4. No acute focal neurological deficit. Psych/Mental Status: Flat affect Assessment & Plan Assessment/Plan (1) CHF exacerbation: QUALIFIERS: Heart failure type: systolic Qualified Code(s): I50.23 - Acute on chronic systolic (congestive) heart failure (2) Acute hypoxic respiratory failure: PLAN: Plan This 54-year-old female is being admitted for acute hypoxic respiratory failure predominantly from heart failure exacerbation and COPD exacerbation 1. Acute hypoxic respiratory failure predominantly acute on chronic HFpEF : Patient is being admitted in ICU on BiPAP. ABG 7.32/31.2/89 on 50% FiO2, RR 12 on BiPAP PEEP 8. Chest x-ray shows pulmonary venous congestion/edema and blunting of bilateral CP angles patient blood pressure was low in the ED systolic 100 which improved after 20 mg of IV Lasix therefore another dose of 20 mg ordered. Lasix 40 mL IV twice daily to continue. Heart failure core measures including intake and output, fluid restriction less than 1500 mL, daily weight monitoring, kidney and electrolytes monitoring. Last echo shows EF 65% with diastolic heart failure, LA enlarged. Limited echo ordered. BNP normal. 02/04: Overall, improvement of shortness of breath and respiratory distress. Patient was on BiPAP for 3 hours last night. No chest pain. Echo findings discussed with the patient which shows EF 30 to 35% with reverse Takotsubo cardiomyopathy, apex migue normally with hypokinetic/akinetic basal wall. Moderately severe MR, 2+ TR and 2+ AI suggestive of significant valvular heart. 2. Mild COPD exacerbation: Triple PCR for SARS-CoV-2, flu and RSV are negative. Patient is being managed on scheduled bronchodilator, IV Solu-Medrol, Mucinex, incentive spirometry and Pep. IV azithromycin ordered. Respiratory panel ordered. Urinary antigens ordered 02/04 discussed with home health care physician. CT chest shows significant infiltrates therefore continue broad-spectrum antibiotic IV meropenem and vancomycin. Pneumonia workup including respiratory panel and urinary antigens are negative. Continue BiPAP as needed 3. Mild troponin elevation: Troponin is 18, 46. Third pending. Patient denies any chest pressure. She had troponin elevations in the past 4. CKD stage IIIa: Patient creatinine baseline is about 1.2-1.3. Lactic acid high 6.4 probably due to hypoxia and venous congestion. Monitor kidney function. 02/04 creatinine is 1.24. Monitor kidney function. Today's BMP. 5. Paroxysmal A-fib : Currently patient in sinus tachycardia. On carvedilol, resume from today's evening. 6. Hypertension, dyslipidemia: On carvedilol and statin continued. Hold Lasix and losartan 7. Other comorbidities include GERD and anxiety and depression: On sertraline and ziprasidone continued. 8. Mild overweight: BMI 26.4 kg/m?. DVT prophylaxis, high risk: Lovenox 40 mg subcu daily Living will/advanced directive/end of life care: Patient does not have living will or advanced directive. She does not have designated power of civil litigation attorney for health. His son is next of kin. After discussion of benefits/risks procedures involved with full code, DNR CC arrest and DNR CC, the patient opted for full code. Patient does want artificial life support including intubation, tube feed, ventilator and/chest compression, central venous catheter, vasopressor and DC shock if needed Total time spent in [id number] encounter in discussion of advanced directive 17 minutes. Microbiology Past 72 Hours 02/03/25 12:28 Mucosa - Nasopharyngeal Respiratory Panel (PCR) - Final 02/03/25 12:30 Nasal Secretion MRSA (PCR) - Final 02/03/25 12:35 Urine, Clean Catch Legionella Antigen - Final 02/03/25 12:35 Urine, Clean Catch Streptococcus pneumoniae Antigen (M - Final 02/03/25 08:30 Mucosa - Nose SARS-CoV-2, Influenza & RSV (PCR) - Final Laboratory Results 02/03/25 08:37: Specimen Type ART, Sample Site L Radial, pH 7.32 L, Bicarbonate Actual 16.2 L, Total CO2 17, Base Excess -10 L, O2 Saturation 96, O2 % 50.0, ABG pCO2 31.2 L, ABG pO2 89, Respiration Rate 12, O2 Delivery Device Not entered, Vent Mode BiLevel, POC PEEP 8 02/03/25 10:34: Troponin T Hi Sens 2 Hr 46 H 02/03/25 12:35: Magnesium 1.8, Troponin T Hi Sens 4Hr 55 H*, Procalcitonin 0.10 02/03/25 13:45: Lactic Acid 6.1 H* 02/04/25 04:20: Triglycerides 146, Cholesterol 149, LDL Cholesterol, Calc 66, VLDL Cholesterol 29, HDL Cholesterol 54, Cholesterol/HDL Ratio 2.79 Echo 12/28/2023 Normal LV size. Left ventricular systolic function is normal. The left ventricular ejection fraction is 65 %. Structurally normal valves. Compared to previous study, the left ventricular systolic function has improved. Clinical Impression(s) from Imaging Studies Echocardiogram 02/03/25 10:47 Interpretation Summary The estimated ejection fraction is 30-35 %. Left ventricular basal wall segments severely hypokinetic to akinetic. [place] migue normally. Consider reverse Takotsubo's. Mild to moderate (1-2+) tricuspid valve insufficiency. Moderate to severe mitral valve regurgitation Moderate (2+) aortic valve insufficiency. Chest CTA 02/03/25 12:14 IMPRESSION: No evidence of pulmonary embolism. Multiple changes as described.
[2025-02-05] MEDS: hydrOXYzine PAM 25 MG Capsule 50 MG PO (09:11)
[2025-02-05] MEDS: 0.9% Saline Lock 10 ML Syringe IV (09:12)
--- NOTE | 2025-02-05 09:30 | PCM.DC ---
Discharge Instructions DC O2, CPAP, BIPAP needs Home O2 Discharge instructions: Yes Type of respiratory needs?: Oxygen Oxygen frequency: Continuous Continuous oxygen liters per minute: 2 Dressing / Incision Discharge Activity: Return to Normal Activity Weight Bearing Status: Weight bearing as tolerated Dressing / Incision Call your doctor if you observe: Fever of 101 or Higher, Coldness, Increased Pain, Numbness or Tingling, Change in Color, Inability to urinate, Inability to have a bowel movement, Shortness of breath, Dizziness, Fainting spells, Swelling in the ankles, Chest pain, Prolonged hiccupping, Increased palpitations (irregular heartbeat) and Calf discomfort Follow Up Care When: IN 2 WEEKS Test Results: Test results from this visit will be discussed in further detail at your follow-up appointment, if applicable. Discharge Plan Admission Admit Date/Time: 02/03/25 10:36 Attending Provider: Leonard Rebollar Primary Care Provider: Susy Funez Discharge Orders/Prescriptions Prescriptions: New spironolactone 25 mg Tablet 12.5 mg PO DAILY 30 Days Qty: 15 2RF Rx Instructions: Hold for serum potassium more than 5.0 losartan 25 mg Tablet 25 mg PO DAILY 30 Days Qty: 30 2RF guaifenesin [Mucus Relief ER] 1,200 mg Tablet Extended Release 12hr 1,200 mg PO BID 7 Days Qty: 14 0RF Jardiance 10 mg Tablet 10 mg PO DAILY 30 Days Qty: 30 1RF cefdinir 300 mg capsule 300 mg PO BID 5 Days Qty: 10 0RF Continued albuterol sulfate 1 INHALER inhaler 2 puff inhalation Q6H PRN (Reason: COPD) albuterol sulfate 2.5 mg /3 mL (0.083 %) solution for nebulization 2.5 mg continuous nebulization Q6H PRN (Reason: wheezing) (DME) OXYGEN - Supplemental ([facility] INFORMATIONAL USE ONLY) Gas See Rx Instructions .ROUTE Patient Comments: patient states she wears 2 lpm with her CPAP at night Rx Instructions: As directed (DME) CPAP - Continuous Positive Airway Pressure([facility] INFORMATIONAL USE ONLY) Device See Rx Instructions .ROUTE Patient Comments: CPAP at night and for naps, patient unaware of settings Rx Instructions: As directed atorvastatin 40 mg tablet 40 mg PO QHS omeprazole 40 mg capsule,delayed release(DR/EC) 40 mg PO DAILY ziprasidone HCl 80 mg capsule 80 mg PO QHS sertraline 50 mg tablet 75 mg PO DAILY fluticasone propion-salmeterol 100-50 mcg/dose blister with device 1 ea INHALATION BID ziprasidone HCl 60 mg capsule 60 mg PO DAILY carvedilol 12.5 mg Tablet 12.5 mg PO BIDCM 30 Days Qty: 60 2RF hydroxyzine pamoate 100 mg capsule 50 mg PO BID 3 Days Qty: 0 0RF Changed furosemide 40 mg tablet 40 mg PO BID 30 Days Qty: 60 3RF Held meloxicam 15 mg tablet 15 mg PO DAILY Hold Instructions: Hold IT. only for severe arthritis. Discontinued losartan 100 mg tablet 100 mg PO DAILY Referrals / Follow Up: Susy Funez MD [Primary Care Provider, Internal Medicine] Chang Snyder DO [Med Staff - Active Staff, Pulmonary Medicine] - Within 1 Month Josh Burton MD [Med Staff - Active Staff, Cardiology] - Within 2 Weeks Disposition Disposition (needs filled in before D/C Order can be placed): Home, Self Care
[2025-02-05 09:31] LABS: Hematocrit 37.7 % (37-47); Hemoglobin 12.5 g/dL (12.0-15.0); Immature Granulocytes Count 0.080 X10^3/uL (0.0-0.0); Mean Corp Hgb Conc 33.2 g/dL (32-36); Mean Corpuscular Volume 85.9 fL (81-99); Mean Platelet Vol. 10.0 fl (6.2-12.0); NRBC Flagged by Analyzer 0 % (0-5); Platelet Count 240 K/mm3 (150-450); RBC Distribution Width CV 14.6 % (11.6-14.6); RBC Distribution Width SD 45.1 fl (35.1-43.9); Red Blood Count 4.39 M/mm3 (4.2-5.4); White Blood Count 15.8 K/mm3 (4.4-11.0)
--- NOTE | 2025-02-05 10:27 | CASEMGMT ---
Pt has an order for DC placed. Per the the journeyman mechanic, pt does not qualify for an increased amount of oxygen. Noted that the pt has an rx for Jardiance. TC to [facility] who states that the pt has a total co-pay of 0$ for all of her prescriptions. No further needs identified at this time.
[2025-02-05 10:29] LABS: Anion Gap 13 (5-15); BUN 22 mg/dL (4-19); BUN/Creat Ratio 20.6 RATIO (10-20); Calcium,Total 8.7 mg/dL (7.6-11.0); Carbon Dioxide 27.1 mmol/L (21.0-32.0); Chloride 100 mmol/L (98-108); Estimated Creatinine Clearance 59.74 ml/min (50-250); Glucose 128 mg/dL (70-99); Potassium 3.3 mmol/L (3.3-5.1)
--- NOTE | 2025-02-05 11:38 | PCM.DC.SUM ---
Providers Date of Admission: 02/03/25 Date of Discharge: 02/05/25 Primary Care Physician: Dr. Susy Funez MD Consultations 02/03/25 12:12 Consult: Senior Front End Developer / Pulmonary Medicine Routine Consulting Provider: Pulmonary Medicine richy Winfield Reason for Consult: acute resp failure, copd exa//pulm edema EMERGENT Consult: No Notified: Yes Date Notified: 02/03/25 Time Notified: 10:44 Method of Notification: Text 02/03/25 13:26 Consult: Cardiology Routine Consulting Provider: Josh Burton Reason for Consult: NEW onet HF, EF decreased from last ECHO, Sudden SOB EMERGENT Consult: No Notified: Yes Date Notified: 02/03/25 Time Notified: 13:27 Method of Notification: Text Reason For Visit: ACUTE RESP FAILURE Diagnosis Discharge Diagnosis (1) CHF exacerbation: Status: Chronic Code(s): I50.9 - Heart failure, unspecified Qualifiers: Heart failure type: systolic Qualified Code(s): I50.23 - Acute on chronic systolic (congestive) heart failure (2) Acute hypoxic respiratory failure: Status: Resolved Code(s): J96.01 - Acute respiratory failure with hypoxia Plan This 54-year-old female is being admitted for acute hypoxic respiratory failure predominantly from heart failure exacerbation and COPD exacerbation 1. Acute hypoxic respiratory failure predominantly acute on chronic HFpEF : Patient is being admitted in ICU on BiPAP. ABG 7.32/31.2/89 on 50% FiO2, RR 12 on BiPAP PEEP 8. Chest x-ray shows pulmonary venous congestion/edema and blunting of bilateral CP angles patient blood pressure was low in the ED systolic 100 which improved after 20 mg of IV Lasix therefore another dose of 20 mg ordered. Lasix 40 mL IV twice daily to continue. Heart failure core measures including intake and output, fluid restriction less than 1500 mL, daily weight monitoring, kidney and electrolytes monitoring. Last echo shows EF 65% with diastolic heart failure, LA enlarged. Limited echo ordered. BNP normal. 02/04: Overall, improvement of shortness of breath and respiratory distress. Patient was on BiPAP for 3 hours last night. No chest pain. Echo findings discussed with the patient which shows EF 30 to 35% with reverse Takotsubo cardiomyopathy, apex migue normally with hypokinetic/akinetic basal wall. Moderately severe MR, 2+ TR and 2+ AI suggestive of significant valvular heart. 02/05: Production Tester follow-up appreciated. Patient discharged on heart failure medications. Prescription given for losartan, Jardiance, atorvastatin, spironolactone and furosemide. Furosemide dose increased to 40 mL twice daily. Follow-up in cardiology office in 2 weeks. 2. Mild COPD exacerbation: Triple PCR for SARS-CoV-2, flu and RSV are negative. Patient is being managed on scheduled bronchodilator, IV Solu-Medrol, Mucinex, incentive spirometry and Pep. IV azithromycin ordered. Respiratory panel ordered. Urinary antigens ordered 02/[address] chest shows significant infiltrates therefore continue broad-spectrum antibiotic IV meropenem and vancomycin. Pneumonia workup including respiratory panel and urinary antigens are negative. Continue BiPAP as needed 02/05: Follow-up in pulmonary clinic. Patient also given prescription for cefdinir for 5 days. Patient had 2 days of IV antibiotics here. No microorganism isolated for cause of pneumonia. 3. Mild troponin elevation: Troponin is 18, 46. Third troponin 55. Patient denies any chest pressure. She had troponin elevations in the past 02/05: Smillie due to increased cardiac demand and hypoxia due to acute hypoxic respiratory failure. Discussed with the leather stitcher. She has normal coronary artery disease last cath done in 2023. Does not need baby aspirin. Type I MD/non-STEMI ruled out 4. CKD stage IIIa: Patient creatinine baseline is about 1.2-1.3. Lactic acid high 6.4 probably due to hypoxia and venous congestion. Monitor kidney function. 02/04 creatinine is 1.24. Monitor kidney function. Today's BMP. 02/05: Creatinine 1.07 normal. 5. Paroxysmal A-fib : Currently patient in sinus tachycardia. On carvedilol, resume from today's evening. 6. Hypertension, dyslipidemia: On carvedilol and statin continued. Hold Lasix and losartan 7. Other comorbidities include GERD and anxiety and depression: On sertraline and ziprasidone continued. 8. Mild overweight: BMI 26.4 kg/m?. DVT prophylaxis, high risk: Lovenox 40 mg subcu daily Living will/advanced directive/end of life care: Patient does not have living will or advanced directive. She does not have designated power of regional maintenance manager for health. His son is next of kin. After discussion of benefits/risks procedures involved with full code, DNR CC arrest and DNR CC, the patient opted for full code. Patient does want artificial life support including intubation, tube feed, ventilator and/chest compression, central venous catheter, vasopressor and DC shock if needed Total time spent in [id number] encounter in discussion of advanced directive 17 minutes. Microbiology Past 72 Hours 02/03/25 12:28 Mucosa - Nasopharyngeal Respiratory Panel (PCR) - Final 02/03/25 12:30 Nasal Secretion MRSA (PCR) - Final 02/03/25 12:35 Urine, Clean Catch Legionella Antigen - Final 02/03/25 12:35 Urine, Clean Catch Streptococcus pneumoniae Antigen (M - Final 02/03/25 08:30 Mucosa - Nose SARS-CoV-2, Influenza & RSV (PCR) - Final Laboratory Results 02/03/25 08:37: Specimen Type ART, Sample Site L Radial, pH 7.32 L, Bicarbonate Actual 16.2 L, Total CO2 17, Base Excess -10 L, O2 Saturation 96, O2 % 50.0, ABG pCO2 31.2 L, ABG pO2 89, Respiration Rate 12, O2 Delivery Device Not entered, Vent Mode BiLevel, POC PEEP 8 02/03/25 10:34: Troponin T Hi Sens 2 Hr 46 H 02/03/25 12:35: Magnesium 1.8, Troponin T Hi Sens 4Hr 55 H*, Procalcitonin 0.10 02/03/25 13:45: Lactic Acid 6.1 H* 02/04/25 04:20: Triglycerides 146, Cholesterol 149, LDL Cholesterol, Calc 66, VLDL Cholesterol 29, HDL Cholesterol 54, Cholesterol/HDL Ratio 2.79 Echo 12/28/2023 Normal LV size. Left ventricular systolic function is normal. The left ventricular ejection fraction is 65 %. Structurally normal valves. Compared to previous study, the left ventricular systolic function has improved. Clinical Impression(s) from Imaging Studies Echocardiogram 02/03/25 10:47 Interpretation Summary The estimated ejection fraction is 30-35 %. Left ventricular basal wall segments severely hypokinetic to akinetic. [place] migue normally. Consider reverse Takotsubo's. Mild to moderate (1-2+) tricuspid valve insufficiency. Moderate to severe mitral valve regurgitation Moderate (2+) aortic valve insufficiency. Chest CTA 02/03/25 12:14 IMPRESSION: No evidence of pulmonary embolism. Multiple changes as described. Medications at Discharge Home Medications albuterol sulfate 90 mcg/actuation aerosol inhaler 2 puff inhalation Q6H PRN COPD 02/02/19 atorvastatin 40 mg tablet 40 mg PO QHS cholesterol 11/07/23 omeprazole 40 mg capsule,delayed release 40 mg PO DAILY GERD 11/07/23 sertraline 50 mg tablet 75 mg PO DAILY Mood 11/07/23 ziprasidone HCl 80 mg capsule 80 mg PO QHS antipsychotic 11/07/23 fluticasone 100 mcg-salmeterol 50 mcg/dose blistr powdr for inhalation 1 ea inhalation BID allergies 01/10/24 ziprasidone HCl 60 mg capsule 60 mg PO DAILY bipolar 06/22/24 carvedilol 12.5 mg tablet 12.5 mg PO BIDCM blood pressure 30 days #60 tabs 06/25/24 hydroxyzine pamoate 100 mg capsule 50 mg (1/2 x 100 mg) PO BID Anxiety 3 days #0 caps 06/25/24 meloxicam 15 mg tablet 15 mg PO DAILY pain 11/01/24 Held on 02/05/25. Instructions: Hold IT. only for severe arthritis. CPAP - Continuous Positive Airway Pressure([facility] INFORMATIONAL USE ONLY) 02/03/25 OXYGEN - Supplemental ([facility] INFORMATIONAL USE ONLY) 02/03/25 albuterol sulfate 2.5 mg/3 mL (0.083 %) solution for nebulization 2.5 mg continuous nebulization Q6H PRN wheezing 02/03/25 cefdinir 300 mg capsule 300 mg PO BID 5 days #10 caps 02/05/25 empagliflozin 10 mg tablet (Jardiance) 10 mg PO DAILY 30 days #30 tabs 02/05/25 furosemide 40 mg tablet 40 mg PO BID edema 30 days #60 tabs 02/05/25 guaifenesin 1,200 mg tablet, extended release 12 hr (Mucus Relief ER) 1,200 mg PO BID 7 days #14 tabs 02/05/25 losartan 25 mg tablet 25 mg PO DAILY 30 days #30 tabs 02/05/25 spironolactone 25 mg tablet 12.5 mg (1/2 x 25 mg) PO DAILY 30 days #15 tabs 02/05/25 Physical Exam Narrative Seen and examined. Patient on 2 L of oxygen, pulse ox 100%. Pulse ox repeat 93% on room air. No hypoxia. Shortness of breath is resolved. Dyspnea resolved. Physical exam: General: Alert, Oriented x3, Cooperative. BMI 26.4 kg/m? HEENT: Atraumatic, PERRLA, EOMI, Normocephalic. Oral: On BiPAP. Neck: Supple, No JVD, Negative Carotid Bruits Chest wall/Lungs: Air entry diminished in all lung uribe. Bilateral lung bases clear. Cardiovascular: Sinus tachycardia normal S1,S2, systolic murmur Abdomen: Bowel Sounds Present, Soft, Non Tender, Non-Distended : No dysuria. No renal angle tenderness. No suprapubic tenderness. Extremities: No edema, Capillary Refill Less than 3 Seconds Skin: No rashes, No breakdown Musculoskeletal: No Tenderness to Palpation of Joints or Extremities Neurological: Cranial nerves II-XII grossly intact, DTR 2+/4. No acute focal neurological deficit. Psych/Mental Status: Flat affect Weight / BMI Weight Weight: 170 lb 3.15 oz Body Mass Index (BMI) 29.2 ABG / Lab / Microbiology Data 02/05/25 09:19 02/05/25 09:19 Laboratory: Laboratory Results - last 24 hr 02/05/25 09:19: WBC 15.8 H, RBC 4.39, Hgb 12.5, Hct 37.7, MCV 85.9, MCH 28.5, MCHC 33.2, RDW Std Deviation 45.1 H, RDW Coeff of Joseph 14.6, Plt Count 240, MPV 10.0, Immature Gran % (Auto) 0.500, Neut % (Auto) 83.8 H, Lymph % (Auto) 10.4 L, [place] % (Auto) 5.2, Eos % (Auto) 0.0, Baso % (Auto) 0.1, Absolute Neuts (auto) 13.3 H, Absolute Lymphs (auto) 1.64, Nucleated RBC % 0, Sodium 140, Potassium 3.3, Chloride 100, Carbon Dioxide 27.1, Anion Gap 13, BUN 22 H, Creatinine 1.07, Estim Creat Clear Calc 59.74, Est GFR (MDRD) Non-Af 61, BUN/Creatinine Ratio 20.6 H, Glucose 128 H, Calcium 8.7 Microbiology: Microbiology 02/03/25 08:53 Blood Culture (Wb) - Right Forearm Blood Culture - Preliminary No growth in 48 hours. 02/03/25 08:34 Blood Culture (Wb) - Arm Right Blood Culture - Preliminary No growth in 48 hours. 02/03/25 12:28 Mucosa - Nasopharyngeal Respiratory Panel (PCR) - Final 02/03/25 12:30 Nasal Secretion MRSA (PCR) - Final 02/03/25 12:35 Urine, Clean Catch Legionella Antigen - Final 02/03/25 12:35 Urine, Clean Catch Streptococcus pneumoniae Antigen (M - Final 02/03/25 08:30 Mucosa - Nose SARS-CoV-2, Influenza & RSV (PCR) - Final D/C Instructions Weight Bearing Status: Weight bearing as tolerated Call your doctor if you observe: Fever of 101 or Higher, Coldness, Increased Pain, Numbness or Tingling, Change in Color, Inability to urinate, Inability to have a bowel movement, Shortness of breath, Dizziness, Fainting spells, Swelling in the ankles, Chest pain, Prolonged hiccupping, Increased palpitations (irregular heartbeat) and Calf discomfort DC O2, CPAP, BIPAP Needs Home O2 Discharge instructions: Yes Type of respiratory needs?: Oxygen Oxygen frequency: Continuous Continuous oxygen liters per minute: 2 DC home with Oxygen: Yes Home O2 MD Review: I have reviewed the oxygen testing, and the patient qualifies for home oxygen equipment and portability. The patient is mobile in the home and the community. When: IN 2 WEEKS Meaningful Use Info Meaningful Use Meaningful Use Diagnoses (Choose all that apply): None applicable Discharge Plan Admission Admit Date/Time: 02/03/25 10:36 Attending Provider: Leonard Rebollar Primary Care Provider: Susy Funez Discharge Orders/Prescriptions Prescriptions: New spironolactone 25 mg Tablet 12.5 mg PO DAILY 30 Days Qty: 15 2RF Rx Instructions: Hold for serum potassium more than 5.0 losartan 25 mg Tablet 25 mg PO DAILY 30 Days Qty: 30 2RF guaifenesin [Mucus Relief ER] 1,200 mg Tablet Extended Release 12hr 1,200 mg PO BID 7 Days Qty: 14 0RF Jardiance 10 mg Tablet 10 mg PO DAILY 30 Days Qty: 30 1RF cefdinir 300 mg capsule 300 mg PO BID 5 Days Qty: 10 0RF Continued albuterol sulfate 1 INHALER inhaler 2 puff inhalation Q6H PRN (Reason: COPD) albuterol sulfate 2.5 mg /3 mL (0.083 %) solution for nebulization 2.5 mg continuous nebulization Q6H PRN (Reason: wheezing) (DME) OXYGEN - Supplemental ([facility] INFORMATIONAL USE ONLY) Gas See Rx Instructions .ROUTE Patient Comments: patient states she wears 2 lpm with her CPAP at night Rx Instructions: As directed (DME) CPAP - Continuous Positive Airway Pressure([facility] INFORMATIONAL USE ONLY) Device See Rx Instructions .ROUTE Patient Comments: CPAP at night and for naps, patient unaware of settings Rx Instructions: As directed atorvastatin 40 mg tablet 40 mg PO QHS omeprazole 40 mg capsule,delayed release(DR/EC) 40 mg PO DAILY ziprasidone HCl 80 mg capsule 80 mg PO QHS sertraline 50 mg tablet 75 mg PO DAILY fluticasone propion-salmeterol 100-50 mcg/dose blister with device 1 ea INHALATION BID ziprasidone HCl 60 mg capsule 60 mg PO DAILY carvedilol 12.5 mg Tablet 12.5 mg PO BIDCM 30 Days Qty: 60 2RF hydroxyzine pamoate 100 mg capsule 50 mg PO BID 3 Days Qty: 0 0RF Changed furosemide 40 mg tablet 40 mg PO BID 30 Days Qty: 60 3RF Held meloxicam 15 mg tablet 15 mg PO DAILY Hold Instructions: Hold IT. only for severe arthritis. Discontinued losartan 100 mg tablet 100 mg PO DAILY Referrals / Follow Up: Chang Snyder DO [Med Staff - Active Staff, Pulmonary Medicine] - Within 1 Month Josh Burton MD [Med Staff - Active Staff, Cardiology] - Within 2 Weeks Susy Funez MD [Primary Care Provider, Internal Medicine] Disposition Disposition (needs filled in before D/C Order can be placed): Home, Self Care
--- NOTE | 2025-02-05 15:44 | PHA.DC_ITS ---
Pharmacy [place] Med Reconciliation Pharmacy Service has performed discharge medication reconciliation for this patient. Medication education papers prepared, patient discharged before counseling was attempted The patient's discharge medication list was reviewed for discrepancies and discrepancies were resolved. Medications at Discharge Home Medications albuterol sulfate 90 mcg/actuation aerosol inhaler 2 puff inhalation Q6H PRN COPD 02/02/19 atorvastatin 40 mg tablet 40 mg PO QHS cholesterol 11/07/23 omeprazole 40 mg capsule,delayed release 40 mg PO DAILY GERD 11/07/23 sertraline 50 mg tablet 75 mg PO DAILY Mood 11/07/23 ziprasidone HCl 80 mg capsule 80 mg PO QHS antipsychotic 11/07/23 fluticasone 100 mcg-salmeterol 50 mcg/dose blistr powdr for inhalation 1 ea inhalation BID allergies 01/10/24 ziprasidone HCl 60 mg capsule 60 mg PO DAILY bipolar 06/22/24 carvedilol 12.5 mg tablet 12.5 mg PO BIDCM blood pressure 30 days #60 tabs 06/25/24 hydroxyzine pamoate 100 mg capsule 50 mg (1/2 x 100 mg) PO BID Anxiety 3 days #0 caps 06/25/24 meloxicam 15 mg tablet 15 mg PO DAILY pain 11/01/24 Held on 02/05/25. Instructions: Hold IT. only for severe arthritis. CPAP - Continuous Positive Airway Pressure([facility] INFORMATIONAL USE ONLY) 02/03/25 OXYGEN - Supplemental ([facility] INFORMATIONAL USE ONLY) 02/03/25 albuterol sulfate 2.5 mg/3 mL (0.083 %) solution for nebulization 2.5 mg continuous nebulization Q6H PRN wheezing 02/03/25 cefdinir 300 mg capsule 300 mg PO BID 5 days #10 caps 02/05/25 empagliflozin 10 mg tablet (Jardiance) 10 mg PO DAILY 30 days #30 tabs 02/05/25 furosemide 40 mg tablet 40 mg PO BID edema 30 days #60 tabs 02/05/25 guaifenesin 1,200 mg tablet, extended release 12 hr (Mucus Relief ER) 1,200 mg PO BID 7 days #14 tabs 02/05/25 losartan 25 mg tablet 25 mg PO DAILY 30 days #30 tabs 02/05/25 spironolactone 25 mg tablet 12.5 mg (1/2 x 25 mg) PO DAILY 30 days #15 tabs 02/05/25
== END 2025-02-05 13:09 | disposition home or self-care (01) | DRG 189 ==
LOC: ED 10:36 → ICU 10:45 → PCU 02-04 19:16
PROVIDERS: Internal Medicine Critical Care Medicine; Admitting Provider Internal Medicine; Emergency Provider Surgery; PCP Internal Medicine; Visit Provider Internal Medicine
DX: J96.21 Acute and chronic respiratory failure with hypoxia (principal); I50.23 Acute on chronic systolic (congestive) heart failure; I24.89 Other forms of acute ischemic heart disease; J44.1 Chronic obstructive pulmonary disease with (acute) exacerbation; I13.0 Hypertensive heart and chronic kidney disease with heart failure and stage 1 through stage 4 chronic kidney disease, or unspecified chronic kidney disease; F31.9 Bipolar disorder, unspecified; N18.31 Chronic kidney disease, stage 3a; I35.1 Nonrheumatic aortic (valve) insufficiency; I48.0 Paroxysmal atrial fibrillation; E78.5 Hyperlipidemia, unspecified; I25.2 Old myocardial infarction; F41.9 Anxiety disorder, unspecified; K21.9 Gastro-esophageal reflux disease without esophagitis; G47.33 Obstructive sleep apnea (adult) (pediatric); I34.0 Nonrheumatic mitral (valve) insufficiency; Z91.199 Patient's noncompliance with other medical treatment and regimen due to unspecified reason; E66.3 Overweight; Z79.51 Long term (current) use of inhaled steroids; Z68.26 Body mass index [BMI] 26.0-26.9, adult; Z86.73 Personal history of transient ischemic attack (TIA), and cerebral infarction without residual deficits; Z79.899 Other long term (current) drug therapy; Z87.891 Personal history of nicotine dependence
CPT/HCPCS: 36415; 36600; 71046; 71275; 80048; 80053; 80061; 82803; 83605; 83735; 83880; 84145; 84484; 85025; 87040; 87449; 87631; 87633; 87641; 93005; 93308; 94002; 94003; 94640; 94668; 94762; 99285; 99406; J2185; Q9967; A4216; J1938

== ENCOUNTER → 2025-02-14 | Outpatient (CLI) | payer MEDICARE, MEDICAID, SELFPAY ==
[2025-02-14 13:00] LABS: Anion Gap 13 (5-15); BUN 15 mg/dL (4-19); BUN/Creat Ratio 11.8 RATIO (10-20); Calcium,Total 9.1 mg/dL (7.6-11.0); Carbon Dioxide 22.6 mmol/L (21.0-32.0); Chloride 100 mmol/L (98-108); Glucose 136 mg/dL (70-99); Potassium 4.1 mmol/L (3.3-5.1)
== END | disposition home or self-care (01) ==
LOC: LAB 11:16
PROVIDERS: PCP Internal Medicine; Referring Provider Nurse Practitioner Gerontology; Visit Provider Nurse Practitioner Gerontology
DX: I51.81 Takotsubo syndrome (principal); I10 Essential (primary) hypertension
CPT/HCPCS: 36415; 80048